=== PATIENT | male | born 1950 | race Caucasian/White ===

== ENCOUNTER → 2016-04-12 | Outpatient (CLI) | payer MEDICARE | END | disposition home or self-care (01) | LOC: LABWHC1 11:51 | PROVIDERS: ATTEND Internal Medicine Cardiovascular Disease | DX: I10 Essential (primary) hypertension (principal); E03.2 Hypothyroidism due to medicaments and other exogenous substances | CPT/HCPCS: 36415; 84443; 84450; 84460 ==

== ENCOUNTER → 2016-07-07 | Outpatient (CLI) | payer MEDICARE | END | disposition home or self-care (01) | LOC: LABWHC1 08:17 | PROVIDERS: ATTEND Internal Medicine Cardiovascular Disease | DX: I48.2 Chronic atrial fibrillation (principal) | CPT/HCPCS: 36415; 84443; 84450; 84460 ==

== ENCOUNTER → 2016-07-10 | Outpatient (CLI) | payer MEDICARE | END | disposition home or self-care (01) | LOC: LABWHC1 15:08 | PROVIDERS: ATTEND Internal Medicine Cardiovascular Disease | DX: I25.5 Ischemic cardiomyopathy (principal); I34.0 Nonrheumatic mitral (valve) insufficiency; I25.10 Atherosclerotic heart disease of native coronary artery without angina pectoris; I10 Essential (primary) hypertension | CPT/HCPCS: 36415; 84439; 84481 ==

== ENCOUNTER → 2016-12-07 | Outpatient (CLI) | payer MEDICARE ==
--- NOTE | 2016-12-07 12:32 | CT ---
EXAMINATION TYPE: CT brain wo con DATE OF EXAM: 12/07/2016 COMPARISON: NONE HISTORY: hallucinations/weakness CT DLP: 1090.40 mGycm Automated exposure control for dose reduction was used. FINDINGS: Changes of chronic sinusitis noted. Ventricular system is midline. No acute hemorrhage or mass effect . Mild generalized degenerative change. Calvarium intact. Intracranial atherosclerotic changes noted. IMPRESSION: 1. NO ACUTE PROCESS. CONSIDER MRI.
--- NOTE | 2016-12-07 13:53 | US ---
EXAMINATION TYPE: US carotid duplex BILAT DATE OF EXAM: 12/07/2016 COMPARISON: NONE CLINICAL HISTORY: R51 Headache, I25.10 Coronary Atherosclerosis. EXAM MEASUREMENTS: RIGHT: Peak Systolic Velocity (PSV) cm/sec ----- Right CCA: 80.9 ----- Right ICA: 100.1 ----- Right ECA: 78.7 ICA/CCA ratio: 1.2 RIGHT: End Diastole cm/sec ----- Right CCA: 22.1 ----- Right ICA: 32.2 ----- Right ECA: 11.2 LEFT: Peak Systolic Velocity (PSV) cm/sec ----- Left CCA: 89.9 ----- Left ICA: 98.0 ----- Left ECA: 77.1 ICA/CCA ratio: 1.1 LEFT: End Diastole cm/sec ----- Left CCA: 30.1 ----- Left ICA: 23.6 ----- Left ECA: 10.6 VERTEBRALS (direction of flow): Right Vertebral: Antegrade Left Vertebral: Antegrade Rhythm: Normal Mild atherosclerotic changes with no significant velocity increases seen bilaterally. Grayscale, color Doppler, spectral Doppler imaging carotid arteries. IMPRESSION: No hemodynamic significant stenosis of the proximal internal carotid arteries bilaterall y by Doppler criteria, an indirect measurement of carotid stenosis.
== END | disposition home or self-care (01) ==
LOC: RADCTMAIN 12:01
PROVIDERS: ATTEND Family Medicine
DX: I25.10 Atherosclerotic heart disease of native coronary artery without angina pectoris (principal); R51 Headache
CPT/HCPCS: 70450; 93880

== ENCOUNTER → 2016-12-18 | Outpatient (CLI) | payer MEDICARE ==
--- NOTE | 2016-12-19 07:05 | US ---
EXAMINATION TYPE: US thyroid st tissue head/neck DATE OF EXAM: 12/18/2016 COMPARISON: NONE CLINICAL HISTORY: R79.89 Elevated TSH levels. Abnormal labs GLAND SIZE: Right Lobe: 4.2 x 1.7 x 2.0 cm Overall Parenchyma: homogenous Left Lobe: 4.8 x 1.2 x 1.8 cm Overall Parenchyma: homogeneous Isthmus Thickness: 0.2 cm Bilateral neck scanned, no evidence of lymphadenopathy. Bilateral thyroid appeared wnl, right lobe alves d lobular contour IMPRESSION: Unremarkable-appearing thyroid with no evidence of heterogeneity, hypervascularity, or enlargement. N o discrete nodules.
== END ==
LOC: RADUSWWP 15:58
PROVIDERS: ATTEND Family Medicine
DX: R79.89 Other specified abnormal findings of blood chemistry (principal)
CPT/HCPCS: 76536

== ENCOUNTER 2019-12-05 20:41 | Inpatient (IN) | payer MEDICARE, OTHER ==
[2019-12-05] MEDS ORDERED: DILTIAZEM DRIP BOLUS FROM BAG 1 MG SOLN IV ONE (20:47)
[2019-12-05] MEDS ORDERED: SODIUM CHLORIDE 0.9% 500 ML 500 ML IV STA (21:00)
[2019-12-05] MEDS ORDERED: DILTIAZEM 125 MG in SODIUM CHLORIDE 0.9% 100 ML IV SCH (21:00)
--- NOTE | 2019-12-05 21:01 | ED ---
General Adult HPI - General Chief complaint: Recheck/Abnormal Lab/Rx Stated complaint: chest pain Time Seen by Provider: 12/05/19 20:43 Source: patient Mode of arrival: EMS - History of Present Illness Initial comments: Dictation was produced using [employer] dictation software. please excuse any grammatical, word or spelling errors. This patient was cared for during a federal and state declared state of emergency secondary to Covid 19 Chief Complaint: 69-year-old male presents with defibrillator firing. History of Present Illness: Patient is 69-year-old male who has past medical history of AICD, cardiac ablation, heart cath pacemaker. Patient states that he was driving home when all of a sudden he felt a intense shock to his chest. He believes that his defibrillator fired. Patient pulled over and EMS was called patient is brought to the emergency department. Patient states he felt fine all day. Feels at baseline. He does not know when he got shocked. He was driving at that time. He denies any palpitations prior to the onset of this shock. Patient was recently told that he has a leaky valve. The ROS documented in this emergency department record has been reviewed and confirmed by me. Those systems with pertinent positive or negative responses have been documented in the HPI. All other systems are other negative and/or noncontributory. PHYSICAL EXAM: General Impression: Alert and oriented x3, not in acute distress HEENT: Normocephalic atraumatic, extra-ocular movements intact, pupils equal and reactive to light bilaterally, mucous membranes moist. Cardiovascular: Tachycardic Chest: Able to complete full sentences, no retractions, no tachypnea Abdomen: abdomen soft, non-tender, non-distended, no organomegaly Musculoskeletal: Pulses present and equal in all extremities, no peripheral edema Motor: no focal deficits noted Neurological: CN II-XII grossly intact, no focal motor or sensory deficits noted Skin: Intact with no visualized rashes Psych: Normal affect and mood ED course: 69-year-old male past medical history of defibrillator firing. Vital signs upon arrival shows tachycardia of 140. Patient is asymptomatic. Repeat EKG was performed showing adequate rate control. EKG w slow her rate shows A. fib with aberrancy.. Patient denies any history of A. fib. Clinical presentation consistent with the onset A. fib. Patient be heparinized. Patient states he used to be prescribed a course however does not take it anymore because he can't afford it. Chest x-ray shows chronic changes. There is concern of a right basilar acute infiltrate. Laboratory evaluation obtained. Leukocytosis of 17.3. Coag panel shows INR 1.8. Metabolic panel shows some 132. Glucose 200. Troponin 0.035. Patient reevaluated after several minutes of Cardizem. Patient's heart rate is well-controlled. Patient is being asymp tomatic. Pending AICD interrogation. Discussed patient case with Dr. Murillo is willing to accept patients care. He requests that I contact cardiology who is agreeable with plan. Cardiology will be consulted. EKG interpretation: Ventricular rate 144, A. fib, RVR with aberrancy. No LA prolongation, no QTC prolongation, no ST or T-wave changes noted. EKG compared to 12/06/2015 showing no changes. - Related Data Home Medications Medication Instructions Recorded Confirmed Atorvastatin [Lipitor] 80 mg PO HS 11/27/13 12/05/19 Enalapril Maleate 2.5 mg PO HS 11/27/13 12/05/19 Aspirin EC [Ecotrin] 325 mg PO DAILY 12/05/19 12/05/19 Metoprolol Tartrate [Lopressor] 50 mg PO DAILY 12/05/19 12/05/19 Xarelto Unknown Dose 1 tab PO BID 12/05/19 12/05/19 Allergies Allergy/AdvReac Type Severity Reaction Status Date / Time No Known Allergies Allergy Verified 12/05/19 22:04 Review of Systems ROS Statement: Those systems with pertinent positive or pertinent negative responses have been documented in the HPI. ROS Other: All systems not noted in ROS Statement are negative. Past Medical History Past Medical History: GERD/Reflux, Hyperlipidemia, Hypertension, Myocardial Infarction ([place]) Additional Past Medical History / Comment(s): X3 NC'S, ULCER YEARS AGO, bradycardia Last Myocardial Infarction Date:: 2004 History of Any Multi-Drug Resistant Organisms: None Reported Past Surgical History: AICD, Cardiac Ablation, Heart Catheterization With Stent, Pacemaker Additional Past Surgical History / Comment(s): CARDIOVERSION, HEART STENTS X7, cardiac ablation x 2 in the past and again om 12-05-15, rt wrist surgery after injury Additional Past Anesthesia/Blood Transfusion Reaction / Comment(s): NEVER HAS HAD GENERAL ANESTHESIA Date of Last Stent Placement:: 2004 Type of Cardiac Device: AICD Device Placement Date:: Past Psychological History: No Psychological Hx Reported Smoking Status: Current every day smoker Past Alcohol Use History: Occasional Past Drug Use History: None Reported - Past Family History Father Additional Family Medical History / Comment(s): DAD HAD PACER BUT NO OTHER HX KNOWN Mother Family Medical History: No Reported History Additional Family Medical History / Comment(s): pt stated does'nt know medical hx on parents. Course Vital Signs 12/05/19 12/05/19 20:43 22:17 Temperature 97.6 F 97.8 F Pulse Rate 141 H 95 Respiratory 19 18 Rate Blood Pressure 134/100 130/83 O2 Sat by Pulse 96 92 L Oximetry Medical Decision Making - Lab Data Result diagrams: 12/05/19 21:07 12/05/19 21:07 Lab Results 12/05/19 12/05/19 12/05/19 Range/Units 21:07 21:07 21:07 WBC 17.3 H (3.8-10.6) k/uL RBC 5.71 (4.30-5.90) m/uL Hgb 17.1 (13.0-17.5) gm/dL Hct 52.3 (39.0-53.0) % MCV 91.5 (80.0-100.0) fL MCH 30.0 (25.0-35.0) pg MCHC 32.8 (31.0-37.0) g/dL RDW 13.4 (11.5-15.5) % Plt Count 265 (150-450) k/uL Neutrophils % 56 % Lymphocytes % 32 % Monocytes % 8 % Eosinophils % 1 % Basophils % 1 % Neutrophils # 9.7 H (1.3-7.7) k/uL Lymphocytes # 5.5 H (1.0-4.8) k/uL Monocytes # 1.4 H (0-1.0) k/uL Eosinophils # 0.2 (0-0.7) k/uL Basophils # 0.1 (0-0.2) k/uL Manual Slide Review Performed Large Platelets Present Polychromasia Present Anisocytosis (manual) Present PT 17.8 H (9.0-12.0) sec INR 1.8 H (<1.2) APTT 37.3 H (22.0-30.0) sec Sodium 132 L (137-145) mmol/L Potassium 3.9 (3.5-5.1) mmol/L Chloride 96 L (98-107) mmol/L Carbon Dioxide 22 (22-30) mmol/L Anion Gap 14 mmol/L BUN 11 (9-20) mg/dL Creatinine 1.17 (0.66-1.25) mg/dL Est GFR (CKD-EPI)AfAm 73 (>60 ml/min/1.73 sqM) Est GFR (CKD-EPI)NonAf 63 (>60 ml/min/1.73 sqM) Glucose 200 H (74-99) mg/dL Calcium 9.2 (8.4-10.2) mg/dL Magnesium 1.9 (1.6-2.3) mg/dL Total Bilirubin 1.0 (0.2-1.3) mg/dL AST 33 (17-59) U/L ALT 17 (4-49) U/L Alkaline Phosphatase 125 (38-126) U/L Troponin I (0.000-0.034) ng/mL Total Protein 7.4 (6.3-8.2) g/dL Albumin 4.4 (3.5-5.0) g/dL TSH 2.580 (0.465-4.680) mIU/L 12/05/19 Range/Units 21:07 WBC (3.8-10.6) k/uL RBC (4.30-5.90) m/uL Hgb (13.0-17.5) gm/dL Hct (39.0-53.0) % MCV (80.0-100.0) fL MCH (25.0-35.0) pg MCHC (31.0-37.0) g/dL RDW (11.5-15.5) % Plt Count (150-450) k/uL Neutrophils % % Lymphocytes % % Monocytes % % Eosinophils % % Basophils % % Neutrophils # (1.3-7.7) k/uL Lymphocytes # (1.0-4.8) k/uL Monocytes # (0-1.0) k/uL Eosinophils # (0-0.7) k/uL Basophils # (0-0.2) k/uL Manual Slide Review Large Platelets Polychromasia Anisocytosis (manual) PT (9.0-12.0) sec INR (<1.2) APTT (22.0-30.0) sec Sodium (137-145) mmol/L Potassium (3.5-5.1) mmol/L Chloride (98-107) mmol/L Carbon Dioxide (22-30) mmol/L Anion Gap mmol/L BUN (9-20) mg/dL Creatinine (0.66-1.25) mg/dL Est GFR (CKD-EPI)AfAm (>60 ml/min/1.73 sqM) Est GFR (CKD-EPI)NonAf (>60 ml/min/1.73 sqM) Glucose (74-99) mg/dL Calcium (8.4-10.2) mg/dL Magnesium (1.6-2.3) mg/dL Total Bilirubin (0.2-1.3) mg/dL AST (17-59) U/L ALT (4-49) U/L Alkaline Phosphatase (38-126) U/L Troponin I 0.035 H* (0.000-0.034) ng/mL Total Protein (6.3-8.2) g/dL Albumin (3.5-5.0) g/dL TSH (0.465-4.680) mIU/L Critical Care Time Critical Care Time: Yes Total Critical Care Time: 33 Disposition Clinical Impression: Afib Disposition: ADMITTED IP TO THIS [facility] Condition: Fair Referrals: Lenard Cheatham MD [Primary Care Provider] - 1-2 days Decision Time: 22:27
[2019-12-05 21:22] LABS: Basophils # (A) 0.1 k/uL (0-0.2); Basophils % (A) 1 %; Eosinophils # (A) 0.2 k/uL (0-0.7); Eosinophils % (A) 1 %; HCT 52.3 % (39.0-53.0); HGB 17.1 gm/dL (13.0-17.5); Lymphocytes # (A) 5.5 k/uL (1.0-4.8); Lymphocytes % (A) 32 %; MCHC 32.8 g/dL (31.0-37.0); MCV 91.5 fL (80.0-100.0); Mean Platelet Volume 9.3; Monocytes # (A) 1.4 k/uL (0-1.0); Monocytes % (A) 8 %; Neutrophils # (A) 9.7 k/uL (1.3-7.7); Neutrophils % (A) 56 %; Platelet Count 265 k/uL (150-450); RBC 5.71 m/uL (4.30-5.90); RDW 13.4 % (11.5-15.5); WBC 17.3 k/uL (3.8-10.6)
[2019-12-05 21:24] LABS: INR 1.8 (<1.2)
[2019-12-05 21:25] LABS: Partial Thromboplastin Time 37.3 sec (22.0-30.0); Prothrombin Time 17.8 sec (9.0-12.0)
[2019-12-05 21:34] LABS: Albumin 4.4 g/dL (3.5-5.0); Calcium 9.2 mg/dL (8.4-10.2); Magnesium 1.9 mg/dL (1.6-2.3); Potassium 3.9 mmol/L (3.5-5.1); Total Protein 7.4 g/dL (6.3-8.2)
[2019-12-05] MEDS ORDERED: HEPARIN SODIUM,PORCINE 5,000 UNIT/ML 1 ML VIAL IV PRN ×2 (21:35→22:23)
[2019-12-05] MEDS ORDERED: HEPARIN SODIUM,PORCINE 10,000 UNIT/ML 1 ML VIAL IV ONE (21:35)
--- NOTE | 2019-12-05 21:41 | XR ---
EXAMINATION TYPE: XR chest 1V portable DATE OF EXAM: 12/05/2019 COMPARISON: Chest x-ray February 20, 2015. HISTORY: Dysrhythmia with pacemaker fired. TECHNIQUE: Single AP portable frontal upright view of the chest is obtained. FINDINGS: Cardiac silhouette size stable and upper limits of normal with single lead upper left ches t pacemaker/defibrillator redemonstrated. There is new inferior lateral single lead pacemaker/defibri llator overlying the descending thoracic aorta frontal view. There is background chronic parenchymal change with diminished inspiration and increased central vascular congestion, slightly more prominent right focal basilar opacity noted. No pleural effusion or pneumothorax is clearly seen. The osseous structures are intact. Defibrillator pad overlies right upper to mid chest laterally. IMPRESSION: Chronic changes. Diminished inspiration with new central vascular congestion. Possible d eveloping right basilar acute infiltrate and/or atelectasis. Consider follow-up two-view chest x-ray.
[2019-12-05] MEDS ORDERED: HEPARIN SOD,PORK IN 0.45% NACL 25,000 UNIT in 0.45% NACL 1 250ML.BAG IV SCH ×2 (21:45→22:30)
[2019-12-05 22:01] LABS: Large Platelets Present; Polychromasia Present
[2019-12-05 22:03] LABS: Anisocytosis (M) Present
[2019-12-05] MEDS ORDERED: cefTRIAXone IN SWFI 1,000 MG/10 ML SYRINGE IVP STA (22:25)
[2019-12-05] MEDS ORDERED: AZITHROMYCIN 500 MG in SODIUM CHLORIDE 0.9% 250 ML IVPB STA (22:25)
[2019-12-05] MEDS ORDERED: NALOXONE 0.4 MG/ML 1 ML VIAL IV PRN (22:27)
[2019-12-05] MEDS: SODIUM CHLORIDE 0.9% 1,000 ML IV SCH (23:03)
[2019-12-06] MEDS ORDERED: AMIODARONE 360 MG in DEXTROSE 5% IN WATER 200 ML IV ONE ×2 (01:30)
[2019-12-06] MEDS ORDERED: FUROSEMIDE 10 MG/ML 4 ML VIAL IV STA ×2 (03:42→04:29)
[2019-12-06] MEDS ORDERED: ONDANSETRON 4 MG/2 ML VIAL ONE (03:46)
--- NOTE | 2019-12-06 04:05 | XR ---
EXAMINATION TYPE: XR chest 1V portable DATE OF EXAM: 12/06/2019 COMPARISON: 12/05/2019 HISTORY: Short of breath TECHNIQUE: FINDINGS: There is some airspace infiltrate and consolidation in the right lower lobe. There is pleur al thickening and fluid at the right lung base and right lateral chest wall. There is diffuse pulmona ry interstitial edema. There is a left axillary pacemaker. There are no hilar masses. IMPRESSION: Pulmonary interstitial edema with right-sided pleural fluid and right lower lobe infiltra te. This is consistent with congestive heart failure that is increased compared to yesterday. Right l ower lobe pneumonia is possible.
[2019-12-06] MEDS: AMIODARONE 300 MG in DEXTROSE 5% IN WATER 250 ML IV SCH ×4 (06:30→15:47)
[2019-12-06 07:47] LABS: HCT 53.2 % (39.0-53.0); HGB 17.1 gm/dL (13.0-17.5); MCH 29.6 pg (25.0-35.0); MCHC 32.2 g/dL (31.0-37.0); MCV 91.8 fL (80.0-100.0); Mean Platelet Volume 11.1; Platelet Count 256 k/uL (150-450); RDW 13.1 % (11.5-15.5); WBC 14.6 k/uL (3.8-10.6)
[2019-12-06 08:53] LABS: Albumin 4.2 g/dL (3.5-5.0); Calcium 9.2 mg/dL (8.4-10.2); Potassium 4.2 mmol/L (3.5-5.1); Total Bilirubin 0.8 mg/dL (0.2-1.3); Total Protein 7.3 g/dL (6.3-8.2)
--- NOTE | 2019-12-06 11:19 | P.CRDCN ---
History of Present Illness Consult date: 12/06/19 History of present illness: CHIEF COMPLAINT: ICD firing HISTORY OF PRESENT ILLNESS: This is a 69-year old male with a past medical history significant for ischemic cardiomyopathy, cardiac ablation, ICD, hyperlipidemia, coronary artery disease with multiple stent placements, and nicotine dependence. Patient follows in the office with Dr. Curry. We have been asked to see the patient in consultation for new onset atrial fibrillation. Patient states he was driving yesterday and was feeling in his normal state of health when he suddenly saw a flash of light and then he felt a shock to his chest. He states about a minute later he felt a second shock. The patient denies feeling any chest pain, shortness of breath, dizziness or lightheadedness, or palpitations prior to this. Patient was admitted to the hospital for further evaluation. Patient was transferred to the intensive care unit secondary to respiratory distress and pulmonary edema. Patient required high flow nasal cannula and IV Lasix. DIAGNOSTICS: EKG reveals atrial fibrillation with RVR. Chest xray pulmonary interstitial edema with right-sided pleural fluid and right lower lobe infiltrate. Consistent with congestive heart failure that is increased compared to yesterday. Right lower lobe pneumonia is possible. Laboratory data: WBC 14.6. Hemoglobin 17.1. Platelet count 256. Sodium 136 for a potassium 4.2. BUN 13. Creatinine 1.05. Lactic acid 2.6. Repeat 1.4. Troponin 0.035. 0.047. BNP 4250. TSH 2.580 Current home cardiac medications include Lopressor 50 mg daily, enalapril 2.5 mg daily, Lipitor 80 mg daily, aspirin 325 mg daily. REVIEW OF SYSTEMS: At the time of my exam: CONSTITUTIONAL: Denies fever or chills. HEENT: Denies blurred vision, vision changes, or eye pain. Denies hemoptysis CARDIOVASCULAR: Denies chest pain, orthopnea, PND or palpitations RESPIRATORY: Reports shortness of breath. GASTROINTESTINAL: Denies abdominal pain. Denies nausea or vomiting. HEMATOLOGIC: Denies bleeding disorders. GENITOURINARY: Denies any blood in urine. SKIN: Denies pruitis. Denies rash. PHYSICAL EXAM: VITAL SIGNS: Reviewed. GENERAL: Well-developed in no acute distress. HEENT: Head is normocephalic. Pupils are equal, round. Sclerae anicteric. Mucous membranes of the mouth are moist. Neck supple. No JVD or thyromegaly LUNGS: Respirations even and unlabored. Lungs diminished with rales to bilateral bases. HEART: Irregular rate and rhythm. S1 and S2 heard. ABDOMEN: Soft. Nondistended. Nontender. EXTREMITIES: Normal range of motion. No clubbing or cyanosis. Peripheral pulses intact. No lower extremity edema NEUROLOGIC: Awake and alert. Oriented x 3. ASSESSMENT: Ventricular tachycardia, status post ICD discharge 2 Pulmonary edema Elevated troponins, likely secondary to VT New onset atrial fibrillation with RVR History of ischemic cardiomyopathy, status post ICD placement History of coronary artery disease with previous stent placement History of cardiac ablation Hyperlipidemia Nicotine dependence, patient smokes half a pack per day PLAN: Continue IV amiodarone per protocol. Will begin oral amiodarone 400 mg by mouth twice a day after infusion is complete Continue beta nyla. Continue telemetry monitoring Continue IV Lasix 40 mg every 12 hours Monitor kidney function Daily weights and accurate I&O Obtain 2-D echo to assess cardiac structure and function Continue IV heparin. Patient will require oral anticoagulation. He reports he was prescribed anticoagulation in the past after an ablation and was unable to afford it. Will consult case management to determine co-pay of anticoagulation options. Further recommendations pending patient's course Nurse practitioner note has been reviewed by physician. Signing provider agrees with the documented findings, assessment, and plan of care. Past Medical History Past Medical History: Hyperlipidemia, Myocardial Infarction ([place]) Additional Past Medical History / Comment(s): X3 ME'S, ULCER YEARS AGO, bradycardia Last Myocardial Infarction Date:: 2004 History of Any Multi-Drug Resistant Organisms: None Reported Past Surgical History: AICD, Cardiac Ablation, Heart Catheterization With Stent, Orthopedic Surgery, Pacemaker Additional Past Surgical History / Comment(s): CARDIOVERSION, HEART STENTS X7, cardiac ablation x 2 in the past and again om 12-05-15, rt wrist surgery after injury Past Anesthesia/Blood Transfusion Reactions: Unable to Obtain Additional Past Anesthesia/Blood Transfusion Reaction / Comment(s): NEVER HAS HAD GENERAL ANESTHESIA Date of Last Stent Placement:: 2004 Type of Cardiac Device: AICD Device Placement Date:: Past Psychological History: No Psychological Hx Reported Additional Psychological History / Comment(s): occ deprssion but denies any suicidal ideations and no hoplessness Smoking Status: Current every day smoker Past Alcohol Use History: Occasional Additional Past Alcohol Use History / Comment(s): STARTED SMOKING AT AGE 10, smokes half a pack a day Past Drug Use History: None Reported - Past Family History Father Additional Family Medical History / Comment(s): DAD HAD PACER BUT NO OTHER HX KNOWN Mother Family Medical History: No Reported History Additional Family Medical History / Comment(s): pt stated does'nt know medical hx on parents. Medications and Allergies Home Medications Medication Instructions Recorded Confirmed Type Atorvastatin [Lipitor] 80 mg PO HS 11/27/13 12/05/19 History Enalapril Maleate 2.5 mg PO HS 11/27/13 12/05/19 History Aspirin EC [Ecotrin] 325 mg PO DAILY 12/05/19 12/05/19 History Metoprolol Tartrate [Lopressor] 50 mg PO DAILY 12/05/19 12/05/19 History Xarelto Unknown Dose 1 tab PO BID 12/05/19 12/05/19 History Allergies Allergy/AdvReac Type Severity Reaction Status Date / Time No Known Allergies Allergy Verified 12/05/19 22:04 Physical Exam Vitals: Vital Signs Temp Pulse Pulse Resp BP BP Pulse Ox 12/06/19 08:30 108 H 37 H 114/85 94 L 12/06/19 08:00 97.6 F 107 H 23 117/86 96 12/06/19 07:30 22 117/86 96 12/06/19 07:00 97 0 L 125/84 96 12/06/19 06:30 98 21 125/84 95 12/06/19 06:00 98 12 129/101 96 12/06/19 05:30 92 16 129/101 96 12/06/19 05:00 102 H 49 H 120/96 95 12/06/19 04:50 96 21 120/96 96 12/06/19 04:40 110 H 31 H 120/96 96 12/06/19 04:30 118 H 46 H 146/109 97 12/06/19 04:20 108 H 35 H 146/109 97 12/06/19 04:10 125 H 31 H 87 L 12/06/19 00:40 97.7 F 98 20 140/88 91 L 12/06/19 00:00 97.4 F L 109 H 18 151/73 92 L 12/05/19 23:44 97.4 F L 109 H 18 151/73 92 L 12/05/19 23:10 98.2 F 93 19 114/90 94 L 12/05/19 22:17 97.8 F 95 18 130/83 92 L 12/05/19 20:43 97.6 F 141 H 19 134/100 96 Intake and Output 12/05/19 12/06/19 12/06/19 22:59 06:59 14:59 Intake Total 290 200.366 Output Total 470 375 Balance -180 -174.634 Intake: IV 40 20 Sodium Chloride 0.9% 1, 40 20 000 ml @ 20 mls/hr IV . Q24H [facility] Rx#:[id number] Intake, IV Titration 250 180.366 Amount Amiodarone 300 mg In 50 Dextrose 5% in Water 250 ml @ 0.5 MG/MIN 25 mls/hr IV .Q10H [facility] Rx#: [id number] Azithromycin 500 mg In 250 Sodium Chloride 0.9% 250 ml @ 250 mls/hr IVPB ONCE [facility] Rx#:[id number] Heparin Sod,Pork in 0.45% 130.366 NaCl 25,000 unit In 0.45 % NaCl 1 250ml.bag @ 18 UNITS/KG/HR 14.043 mls/hr IV .[id number] [facility] Rx#: [id number] Oral 0 Output: Urine 470 375 Other: Voiding Method Indwelling Catheter Indwelling Catheter Weight 78.018 kg 80.4 kg Results 12/06/19 05:22 12/06/19 05:22 Cardiac Enzymes 12/05/19 12/05/19 12/06/19 Range/Units 21:07 21:07 05:22 AST 33 32 (17-59) U/L Troponin I 0.035 H* (0.000-0.034) ng/mL 12/06/19 Range/Units 05:22 AST (17-59) U/L Troponin I 0.047 H* (0.000-0.034) ng/mL Coagulation 12/05/19 12/06/19 Range/Units 21:07 05:22 PT 17.8 H (9.0-12.0) sec APTT 37.3 H >200.0 H* (22.0-30.0) sec CBC 12/05/19 12/06/19 Range/Units 21:07 05:22 WBC 17.3 H 14.6 H (3.8-10.6) k/uL RBC 5.71 5.80 (4.30-5.90) m/uL Hgb 17.1 17.1 (13.0-17.5) gm/dL Hct 52.3 53.2 H (39.0-53.0) % Plt Count 265 256 (150-450) k/uL Comprehensive Metabolic Panel 12/05/19 12/06/19 Range/Units 21:07 05:22 Sodium 132 L 136 L (137-145) mmol/L Potassium 3.9 4.2 (3.5-5.1) mmol/L Chloride 96 L 100 (98-107) mmol/L Carbon Dioxide 22 20 L (22-30) mmol/L BUN 11 13 (9-20) mg/dL Creatinine 1.17 1.05 (0.66-1.25) mg/dL Glucose 200 H 212 H (74-99) mg/dL Calcium 9.2 9.2 (8.4-10.2) mg/dL AST 33 32 (17-59) U/L ALT 17 16 (4-49) U/L Alkaline Phosphatase 125 135 H (38-126) U/L Total Protein 7.4 7.3 (6.3-8.2) g/dL Albumin 4.4 4.2 (3.5-5.0) g/dL Current Medications Generic Name Dose Route Start Last Admin Trade Name Freq PRN Reason Stop Dose Admin Amiodarone HCl 400 mg 12/07/19 09:00 Amiodarone 200 Mg Tab PO BID [facility] Aspirin 325 mg 12/06/19 09:30 Aspirin 325 Mg Tab PO DAILY [facility] Atorvastatin Calcium 80 mg 12/06/19 21:00 Atorvastatin 80 Mg Tab PO HS [facility] Furosemide 40 mg 12/06/19 21:00 Furosemide 10 Mg/Ml 4 Ml Vial IV Q12HR [facility] Heparin Sodium (Porcine) 0 unit 12/05/19 22:23 12/05/19 23:02 Heparin Sodium,Porcine 5,000 Unit/Ml 1 Ml Vial IV 6,241.44 unit PER PROTOCOL PRN Administration Low PTT Protocol Heparin Sodium/Sodium Chloride 250 mls @ 14.043 mls/hr 12/05/19 22:30 12/06/19 08:23 25,000 unit/ Sodium Chloride IV 15 units/kg/hr .[id number] [facility] 11.703 mls/hr Titration Protocol 18 UNITS/KG/HR Sodium Chloride 1,000 mls @ 20 mls/hr 12/05/19 22:30 12/05/19 23:03 Saline 0.9% IV 20 mls/hr .Q24H [facility] Administration Amiodarone HCl 300 mg/ 250 mls @ 25 mls/hr 12/06/19 06:30 12/06/19 06:30 Dextrose/Water IV 12/07/19 00:29 0.5 mg/min .Q10H [facility] 25 mls/hr Administration Protocol 0.5 MG/MIN Metoprolol Tartrate 50 mg 12/06/19 09:30 Metoprolol Tartrate 50 Mg Tab PO DAILY [facility] Naloxone HCl 0.2 mg 12/05/19 22:27 Naloxone 0.4 Mg/Ml 1 Ml Vial IV Q2M PRN Opioid Reversal Intake and Output 12/05/19 12/06/19 12/06/19 22:59 06:59 14:59 Intake Total 290 200.366 Output Total 470 375 Balance -180 -174.634 Intake: IV 40 20 Sodium Chloride 0.9% 1, 40 20 000 ml @ 20 mls/hr IV . Q24H [facility] Rx#:[id number] Intake, IV Titration 250 180.366 Amount Amiodarone 300 mg In 50 Dextrose 5% in Water 250 ml @ 0.5 MG/MIN 25 mls/hr IV .Q10H [facility] Rx#: [id number] Azithromycin 500 mg In 250 Sodium Chloride 0.9% 250 ml @ 250 mls/hr IVPB ONCE [facility] Rx#:[id number] Heparin Sod,Pork in 0.45% 130.366 NaCl 25,000 unit In 0.45 % NaCl 1 250ml.bag @ 18 UNITS/KG/HR 14.043 mls/hr IV .[id number] [facility] Rx#: [id number] Oral 0 Output: Urine 470 375 Other: Voiding Method Indwelling Catheter Indwelling Catheter Weight 78.018 kg 80.4 kg 12/06/19 05:22 12/06/19 05:22
--- NOTE | 2019-12-06 12:27 | P.CNPUL ---
History of Present Illness Consult date: 12/06/19 Reason for consult: dyspnea History of present illness: This 69-year-old male patient has CAD with multivessel disease and multiple stents placed in the past, in addition to history of ischemic cardiomyopathy and the patient has an AICD in place. The patient has had previous VT ablation. He has also approximately atrial fibrillation. The patient was driving yesterday when he had his ileostomy discharge and this happened twice and the second one a few minutes later after the first shock. The patient denies having any chest pain. He was having progressive increased shortness of breath over the past 2 weeks. He was brought into the hospital. He was started on amiodarone drip and his current rhythm is A. fib. His chest x-ray showed pulmonary edema and there was increased infiltration of the right lung base more than the left. There was no evidence of any lung masses or tumors. There may be some small bilateral pleural effusions. The patient denies having any cough or sputum production. No hemoptysis. No pleurisy. White cell count of 14.6. Creatinine is at 1.05. The lactic acid level at 2.6. ProBNP level is 4250. The pro calcitonin level is still pending for now. The patient was given a dose of Rocephin and Zith romax in the ED. The patient has no focal neurological deficits. The patient has no chest pain. He has not required any pressors. Review of Systems Constitutional: Denies chills, Denies fever Eyes: denies as per HPI, denies blurred vision, denies bulging eye, denies decreased vision, denies diplopia, denies discharge, denies dry eye, denies irritation, denies itching, denies pain, denies photophobia, denies loss of peripheral vision, denies loss of vision, denies tunnel vision/blind spots Ears: deny: decreased hearing, ear discharge, earache, tinnitus Ears, nose, mouth and throat: Reports as per HPI Cardiovascular: Reports decreased exercise tolerance, Reports dyspnea on exertion, Reports irregular heart beat, Reports orthopnea Respiratory: Reports dyspnea Gastrointestinal: Reports as per HPI Genitourinary: Reports as per HPI Musculoskeletal: Reports as per HPI Musculoskeletal: absent: ankle pain, ankle stiffness, ankle swelling Integumentary: Reports as per HPI Neurological: Reports as per HPI Psychiatric: Reports as per HPI Endocrine: Reports as per HPI Hematologic/Lymphatic: Reports as per HPI Allergic/Immunologic: Reports as per HPI Past Medical History Past Medical History: Coronary Artery Disease (CAD), Hyperlipidemia, Myocardial Infarction (OR) Additional Past Medical History / Comment(s): Coronary artery disease, multiple MIs in the past, multiple coronary stenting, history of peptic ulcer disease, ischemic cardiomyopathy, previous history of VT ablation, previous history of acid replacement, chronic atrial fibrillation, hyperlipidemia Last Myocardial Infarction Date:: 2004 History of Any Multi-Drug Resistant Organisms: None Reported Past Surgical History: AICD, Cardiac Ablation, Heart Catheterization With Stent, Orthopedic Surgery, Pacemaker Additional Past Surgical History / Comment(s): CARDIOVERSION, HEART STENTS X7, cardiac ablation x 2 in the past and again om 12-05-15, rt wrist surgery after injury Past Anesthesia/Blood Transfusion Reactions: Unable to Obtain Additional Past Anesthesia/Blood Transfusion Reaction / Comment(s): NEVER HAS HAD GENERAL ANESTHESIA Date of Last Stent Placement:: 2004 Type of Cardiac Device: AICD Device Placement Date:: Past Psychological History: No Psychological Hx Reported Additional Psychological History / Comment(s): occ deprssion but denies any danny cidal ideations and no hoplessness Smoking Status: Current every day smoker Past Alcohol Use History: Occasional Additional Past Alcohol Use History / Comment(s): STARTED SMOKING AT AGE 10, smokes half a pack a day Past Drug Use History: None Reported - Past Family History Father Additional Family Medical History / Comment(s): DAD HAD PACER BUT NO OTHER HX KNOWN Mother Family Medical History: No Reported History Additional Family Medical History / Comment(s): pt stated does'nt know medical hx on parents. Medications and Allergies Home Medications Medication Instructions Recorded Confirmed Type Atorvastatin [Lipitor] 80 mg PO HS 11/27/13 12/05/19 History Enalapril Maleate 2.5 mg PO HS 11/27/13 12/05/19 History Aspirin EC [Ecotrin] 325 mg PO DAILY 12/05/19 12/05/19 History Metoprolol Tartrate [Lopressor] 50 mg PO DAILY 12/05/19 12/05/19 History Xarelto Unknown Dose 1 tab PO BID 12/05/19 12/05/19 History Allergies Allergy/AdvReac Type Severity Reaction Status Date / Time No Known Allergies Allergy Verified 12/05/19 22:04 Physical Exam Vitals: Vital Signs Temp Pulse Pulse Resp BP BP Pulse Ox 12/06/19 08:30 108 H 37 H 114/85 94 L 12/06/19 08:00 97.6 F 107 H 23 117/86 96 12/06/19 07:30 22 117/86 96 12/06/19 07:00 97 0 L 125/84 96 12/06/19 06:30 98 21 125/84 95 12/06/19 06:00 98 12 129/101 96 12/06/19 05:30 92 16 129/101 96 12/06/19 05:00 102 H 49 H 120/96 95 12/06/19 04:50 96 21 120/96 96 12/06/19 04:40 110 H 31 H 120/96 96 12/06/19 04:30 118 H 46 H 146/109 97 12/06/19 04:20 108 H 35 H 146/109 97 12/06/19 04:10 125 H 31 H 87 L 12/06/19 00:40 97.7 F 98 20 140/88 91 L 12/06/19 00:00 97.4 F L 109 H 18 151/73 92 L 12/05/19 23:44 97.4 F L 109 H 18 151/73 92 L 12/05/19 23:10 98.2 F 93 19 114/90 94 L 12/05/19 22:17 97.8 F 95 18 130/83 92 L 12/05/19 20:43 97.6 F 141 H 19 134/100 96 Intake and Output 12/05/19 12/06/19 12/06/19 22:59 06:59 14:59 Intake Total 290 200.366 Output Total 470 375 Balance -180 -174.634 Intake: IV 40 20 Sodium Chloride 0.9% 1, 40 20 000 ml @ 20 mls/hr IV . Q24H [facility] Rx#:[id number] Intake, IV Titration 250 180.366 Amount Amiodarone 300 mg In 50 Dextrose 5% in Water 250 ml @ 0.5 MG/MIN 25 mls/hr IV .Q10H [facility] Rx#: [id number] Azithromycin 500 mg In 250 Sodium Chloride 0.9% 250 ml @ 250 mls/hr IVPB ONCE [facility] Rx#:[id number] Heparin Sod,Pork in 0.45% 130.366 NaCl 25,000 unit In 0.45 % NaCl 1 250ml.bag @ 18 UNITS/KG/HR 14.043 mls/hr IV .[id number] [facility] Rx#: [id number] Oral 0 Output: Urine 470 375 Other: Voiding Method Indwelling Catheter Indwelling Catheter Weight 78.018 kg 80.4 kg Gen. appearance the patient is calm and comfortable. He is not having any acute respiratory distress Head exam was generally normal. There was no scleral icterus or corneal arcus. Mucous membranes were moist. Neck was supple and without jugular venous distension, thyromegaly, or carotid bruits. Carotids were easily palpable bilaterally. There was no adenopathy. Lungs sounds are diminished and the patient is crackles in lung bases bilaterally. Heart sounds are irregular, positive S1-S2 and there is no significant murmurs appreciated. The patient has a AICD pocket of the left anterior chest area. Abdominal exam revealed normal bowel sounds. The abdomen was soft, non-tender, and without masses, organomegaly, or appreciable enlargement of the abdominal aorta. Examination of the extremities revealed easily palpable radial, femoral and pedal pulses. There was no cyanosis, clubbing or edema. Examination of the skin revealed no evidence of significant rashes, suspicious appearing nevi or other concerning lesions. Neurologically, the patient is awake and alert and the patient does not have any focal neurological deficit. Cranial nerves are essentially intact. Results - Laboratory Findings CBC and BMP: 12/06/19 05:22 12/06/19 05:22 PT/INR, D-dimer PT 17.8 sec (9.0-12.0) H 12/05/19 21:07 INR 1.8 (<1.2) H 12/05/19 21:07 Abnormal lab findings: Abnormal Labs 12/05/19 12/05/19 12/05/19 21:07 21:07 21:07 WBC 17.3 H Hct Neutrophils # 9.7 H Lymphocytes # 5.5 H Monocytes # 1.4 H PT 17.8 H INR 1.8 H APTT 37.3 H Sodium 132 L Chloride 96 L Carbon Dioxide Glucose 200 H Plasma Lactic Acid Geoff Alkaline Phosphatase Troponin I 12/05/19 12/05/19 12/06/19 21:07 23:00 05:22 WBC Hct Neutrophils # Lymphocytes # Monocytes # PT INR APTT >200.0 H* Sodium Chloride Carbon Dioxide Glucose Plasma Lactic Acid Geoff 2.6 H* Alkaline Phosphatase Troponin I 0.035 H* 12/06/19 12/06/19 12/06/19 05:22 05:22 05:22 WBC 14.6 H Hct 53.2 H Neutrophils # Lymphocytes # Monocytes # PT INR APTT Sodium 136 L Chloride Carbon Dioxide 20 L Glucose 212 H Plasma Lactic Acid Geoff Alkaline Phosphatase 135 H Troponin I 0.047 H* - Diagnostic Findings Chest x-ray: image reviewed Assessment and Plan Plan: 1 acute discharge of AICD 2, rule out underlying ventricular arrhythmia either V. tach or V. fib. The the fibrillated needs to be interrogated 2 ischemic cardiomyopathy with AICD placement 3 atrial fibrillation with RVR and a left bundle branch block pattern current rate is under better control 4 acute pulmonary edema, asymmetric with some increased cough was the right lower lobe, consider underlying pneumonia in the right lower lobe although the presentation is most typical of CHF 5 multivessel coronary artery disease with previous OR and previous coronary stenting 6 history of a new tachycardia post-ablation 7 hyperlipidemia 8 history of smoking 9 mild lactic acidosis Plan Continue the amiodarone drip Restart metoprolol 50 mg by mouth daily Diet he is a patient with a 40 mg IV push every 12 hours Restart aspirin 325 mg by mouth daily IV fluids to KVO Interrogated the AICD Cardiology consultation Repeat chest x-ray with next 24 hours Consider long-term anticoagulation versus acutely placing the patient heparin We'll continue to follow
[2019-12-06] MEDS: ASPIRIN 325 MG TAB PO SCH (15:11)
[2019-12-06] MEDS: METOPROLOL TARTRATE 50 MG TAB PO SCH (15:11)
--- NOTE | 2019-12-06 17:11 | P.HPIM ---
History of Present Illness H&P Date: 12/06/19 Chief Complaint: AICD firing History of presenting complaint: This is a pleasant 69-year-old patient of Dr. Cheatham. Chronic stable medical conditions include coronary artery disease, hyperlipidemia, multiple MIs in the past, coronary stent, peptic ulcer disease, ischemic cardiomyopathy, previous V. tach ablation, atrial fibrillation,. Patient was driving home yesterday when he saw lights flashing and then his AICD kicked in twice. Presented to the ER. Admitted to the floor. Patient became short of breath. Had to be given Lasix and put on a BiPAP. Then transferred to the ICU. AICD interrogation did show V. tach. Patient put on IV amiodarone. This morning patient is feeling better. Daughter the bedside. Patient had been on eliquis previously. Because the co- pay was very high patient stopped taking it. Just last week he was started on Xarelto Review of systems: GEN.: Tired EYES: None HEENT: None NECK: None RESPIRATORY: Some shortness of breath CARDIOVASCULAR: As above GASTROINTESTINAL: None GENITOURINARY: None MUSCULOSKELETAL: None LYMPHATICS: None HEMATOLOGICAL: None PSYCHIATRY: None NEUROLOGICAL: None Past medical history to include: Coronary artery disease with stent, multiple MIs, hyperlipidemia, peptic ulcer disease, ischemic myopathy, went into tachycardia ablation, AICD placement, chronic atrial fibrillation, Social history: Lives alone. Smoking a pack a day closed to 59 years, takes about 6 pack a week. 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 EYES: Pupils equal. Conjunctiva normal. HEENT: External appearance of nose and ears normal, oral cavity grossly normal. NECK: JVD not raised; masses not palpable. HEART: First and second heart sounds are normal; no edema. LUNGS: Respiratory rate increased, decreased breath sounds. ABDOMEN: Soft, nontender, liver spleen not palpable, no masses palpable. PSYCH: Alert and oriented x3; mood and affect normal. NEUROLOGICAL: Cranial nerves grossly intact; no facial asymmetry, power and sensation grossly intact. LYMPHATICS: No lymph nodes palpable in the axilla and neck INVESTIGATIONS, reviewed in the clinical context: White count 7.3 hemoglobin 17.1 INR 1.8 potassium 3.9 creatinine 1.17 Lactic acid 2. 6 repeat 2.4 Troponin I 0.035, 0.047 EKG tracing personally reviewed by [id number] tachycardia Chest x-ray film personally reviewed by me-pulmonary edema Assessment: -AICD firing 2 -Acute pulmonary edema secondary to underlying endocrine tachycardia, causing acute hypoxic respiratory failure requiring BiPAP for some time -Coronary artery disease with prior history of stents -Hyperlipidemia -Persistent atrial fibrillation -Chronic nicotine dependence patient active cigarette smoker -Ischemic cardiomyopathy Plan: Patient was on BiPAP that was taken off. Patient started IV amiodarone. Continue with Zestril Lopressor). Also IV Lasix. Follow with cardiology. He did 2-D echocardiogram. There was discussed with the patient and daughter the bedside. Smoke cessation counseling: This was done with the patient. Nicotine patch is being given. More than 3 minutes was spent for this Past Medical History Past Medical History: Hyperlipidemia, Myocardial Infarction (MS) Additional Past Medical History / Comment(s): X3 MS'S, ULCER YEARS AGO, bradycardia Last Myocardial Infarction Date:: 2004 History of Any Multi-Drug Resistant Organisms: None Reported Past Surgical History: AICD, Cardiac Ablation, Heart Catheterization With Stent, Orthopedic Surgery, Pacemaker Additional Past Surgical History / Comment(s): CARDIOVERSION, HEART STENTS X7, cardiac ablation x 2 in the past and again om 12-05-15, rt wrist surgery after injury Past Anesthesia/Blood Transfusion Reactions: Unable to Obtain Additional Past Anesthesia/Blood Transfusion Reaction / Comment(s): NEVER HAS HAD GENERAL ANESTHESIA Date of Last Stent Placement:: 2004 Type of Cardiac Device: AICD Device Placement Date:: Past Psychological History: No Psychological Hx Reported Additional Psychological History / Comment(s): occ deprssion but denies any suicidal ideations and no hoplessness Smoking Status: Current every day smoker Past Alcohol Use History: Occasional Additional Past Alcohol Use History / Comment(s): STARTED SMOKING AT AGE 10, smokes half a pack a day Past Drug Use History: None Reported - Past Family History Father Additional Family Medical History / Comment(s): DAD HAD PACER BUT NO OTHER HX KNOWN Mother Family Medical History: No Reported History Additional Family Medical History / Comment(s): pt stated does'nt know medical hx on parents. Medications and Allergies Home Medications Medication Instructions Recorded Confirmed Type Atorvastatin [Lipitor] 80 mg PO HS 09/12/14 09/19/20 History Enalapril Maleate 2.5 mg PO HS 11/27/13 12/05/19 History Aspirin EC [Ecotrin] 325 mg PO DAILY 12/05/19 12/05/19 History Metoprolol Tartrate [Lopressor] 50 mg PO DAILY 12/05/19 12/05/19 History Xarelto Unknown Dose 1 tab PO BID 12/05/19 12/05/19 History Allergies Allergy/AdvReac Type Severity Reaction Status Date / Time No Known Allergies Allergy Verified 12/05/19 22:04 Physical Exam Vitals: Vital Signs Temp Pulse Pulse Resp BP BP Pulse Ox 12/06/19 08:30 108 H 37 H 114/85 94 L 12/06/19 08:00 97.6 F 107 H 23 117/86 96 12/06/19 07:30 22 117/86 96 12/06/19 07:00 97 0 L 125/84 96 12/06/19 06:30 98 21 125/84 95 12/06/19 06:00 98 12 129/101 96 12/06/19 05:30 92 16 129/101 96 12/06/19 05:00 102 H 49 H 120/96 95 12/06/19 04:50 96 21 120/96 96 12/06/19 04:40 110 H 31 H 120/96 96 12/06/19 04:30 118 H 46 H 146/109 97 12/06/19 04:20 108 H 35 H 146/109 97 12/06/19 04:10 125 H 31 H 87 L 12/06/19 00:40 97.7 F 98 20 140/88 91 L 12/06/19 00:00 97.4 F L 109 H 18 151/73 92 L 12/05/19 23:44 97.4 F L 109 H 18 151/73 92 L 12/05/19 23:10 98.2 F 93 19 114/90 94 L 12/05/19 22:17 97.8 F 95 18 130/83 92 L 12/05/19 20:43 97.6 F 141 H 19 134/100 96 Intake and Output 12/05/19 12/06/19 12/06/19 22:59 06:59 14:59 Intake Total 290 200.366 Output Total 470 375 Balance -180 -174.634 Intake: IV 40 20 Sodium Chloride 0.9% 1, 40 20 000 ml @ 20 mls/hr IV . Q24H [facility] Rx#:[id number] Intake, IV Titration 250 180.366 Amount Amiodarone 300 mg In 50 Dextrose 5% in Water 250 ml @ 0.5 MG/MIN 25 mls/hr IV .Q10H [facility] Rx#: [id number] Azithromycin 500 mg In 250 Sodium Chloride 0.9% 250 ml @ 250 mls/hr IVPB ONCE STA Rx#:[id number] Heparin Sod,Pork in 0.45% 130.366 NaCl 25,000 unit In 0.45 % NaCl 1 250ml.bag @ 18 UNITS/KG/HR 14.043 mls/hr IV .[id number] [facility] Rx#: [id number] Oral 0 Output: Urine 470 375 Other: Voiding Method Indwelling Catheter Indwelling Catheter Weight 78.018 kg 80.4 kg Results CBC & Chem 7: 12/06/19 05:22 12/06/19 05:22 Labs: Abnormal Lab Results - Last 24 Hours (Table) 12/05/19 12/05/19 12/05/19 Range/Units 21:07 21:07 21:07 WBC 17.3 H (3.8-10.6) k/uL Hct (39.0-53.0) % Neutrophils # 9.7 H (1.3-7.7) k/uL Lymphocytes # 5.5 H (1.0-4.8) k/uL Monocytes # 1.4 H (0-1.0) k/uL PT 17.8 H (9.0-12.0) sec INR 1.8 H (<1.2) APTT 37.3 H (22.0-30.0) sec Sodium 132 L (137-145) mmol/L Chloride 96 L (98-107) mmol/L Carbon Dioxide (22-30) mmol/L Glucose 200 H (74-99) mg/dL Plasma Lactic Acid Geoff (0.7-2.0) mmol/L Alkaline Phosphatase (38-126) U/L Troponin I (0.000-0.034) ng/mL 12/05/19 12/05/19 12/06/19 Range/Units 21:07 23:00 05:22 WBC (3.8-10.6) k/uL Hct (39.0-53.0) % Neutrophils # (1.3-7.7) k/uL Lymphocytes # (1.0-4.8) k/uL Monocytes # (0-1.0) k/uL PT (9.0-12.0) sec INR (<1.2) APTT >200.0 H* (22.0-30.0) sec Sodium (137-145) mmol/L Chloride (98-107) mmol/L Carbon Dioxide (22-30) mmol/L Glucose (74-99) mg/dL Plasma Lactic Acid Geoff 2.6 H* (0.7-2.0) mmol/L Alkaline Phosphatase (38-126) U/L Troponin I 0.035 H* (0.000-0.034) ng/mL 12/06/19 12/06/19 12/06/19 Range/Units 05:22 05:22 05:22 WBC 14.6 H (3.8-10.6) k/uL Hct 53.2 H (39.0-53.0) % Neutrophils # (1.3-7.7) k/uL Lymphocytes # (1.0-4.8) k/uL Monocytes # (0-1.0) k/uL PT (9.0-12.0) sec INR (<1.2) APTT (22.0-30.0) sec Sodium 136 L (137-145) mmol/L Chloride (98-107) mmol/L Carbon Dioxide 20 L (22-30) mmol/L Glucose 212 H (74-99) mg/dL Plasma Lactic Acid Geoff (0.7-2.0) mmol/L Alkaline Phosphatase 135 H (38-126) U/L Troponin I 0.047 H* (0.000-0.034) ng/mL Thrombosis Risk Factor Assmnt - Choose All That Apply Any of the Below Risk Factors Present?: Yes Each Factor Represents 1 point: Abnormal pulmonary function (COPD) Other Risk Factors: Yes Each Risk Factor Represents 2 Points: Age 61-74 years Other congenital or acquired thrombophilia - If yes, enter type in comment: No Thrombosis Risk Factor Assessment Total Risk Factor Score: 3 Thrombosis Risk Factor Assessment Level: Moderate Risk
[2019-12-06] MEDS ORDERED: RIVAROXABAN 20 MG TAB PO SCH (17:30)
[2019-12-06] MEDS ORDERED: FUROSEMIDE 10 MG/ML 4 ML VIAL IV SCH (21:00)
[2019-12-06] MEDS: lisinopriL 5 MG TAB PO SCH (21:02)
[2019-12-06] MEDS: ATORVASTATIN 80 MG TAB PO SCH (21:03)
[2019-12-06] MEDS ORDERED: ONDANSETRON 4 MG/2 ML VIAL IVP STA (21:55)
[2019-12-07] MEDS: SODIUM CHLORIDE 0.9% 1,000 ML IV SCH ×2 (03:13→23:17)
[2019-12-07 06:45] LABS: HCT 48.6 % (39.0-53.0); HGB 16.7 gm/dL (13.0-17.5); MCH 31.2 pg (25.0-35.0); MCHC 34.3 g/dL (31.0-37.0); MCV 91.1 fL (80.0-100.0); Mean Platelet Volume 9.9; Platelet Count 206 k/uL (150-450); RBC 5.33 m/uL (4.30-5.90); RDW 13.1 % (11.5-15.5); WBC 19.5 k/uL (3.8-10.6)
[2019-12-07 06:56] LABS: Potassium 4.8 mmol/L (3.5-5.1)
--- NOTE | 2019-12-07 07:52 | XR ---
EXAMINATION TYPE: XR chest 1V portable DATE OF EXAM: 12/07/2019 COMPARISON: 12/06/2019 HISTORY: Shortness of breath TECHNIQUE: Single frontal view of the chest is obtained. FINDINGS: Hyperinflation suggests COPD. Diffuse interstitial pattern with bilateral infiltrate and p leural effusion greater right. There is a cardiac device. Additional cardiac leads extending from the left chest. No pneumothorax. Biapical pleural thickening. IMPRESSION: 1. Progressing diffuse pleural-parenchymal changes correlate for CHF with increasing right-sided cons olidation and pleural effusion. Underlying pneumonia not excluded.
--- NOTE | 2019-12-07 08:14 | P.PN ---
Subjective Progress Note Date: 12/07/19 Principal diagnosis: An AICD shocks This is a 69-year-old gentleman was coronary artery disease and prior coronary artery revascularization as well as severe ischemic cardiomyopathy as well as a status post AICD who was admitted to the hospital with AICD shocks. The device was interrogated and revealed appropriate shocks. The patient was seen today December [id number]. He is not in any pain at this point. He was started on Lasix IV yesterday because a chest x-ray showed findings consistent with CHF. The creatinine is worse today. I am going to decrease the dose of Lasix to 40 mg IV daily. He is on amiodarone IV which I am going to switch him to amiodarone by mouth. The electrolytes were checked this morning and seems to be within normal limits. When he presented to the hospital he was in atrial fibrillation with RVR and that was a newly diagnosed as the pat ient. Currently the patient is in normal sinus rhythm. Objective - Vital Signs Vital signs: Vital Signs Temp 97.7 F 12/07/19 04:00 Pulse 86 12/07/19 06:00 Resp 25 H 12/07/19 06:00 BP 113/74 12/07/19 06:00 Pulse Ox 93 L 12/07/19 06:00 Intake & Output 12/06/19 12/07/19 12/07/19 18:59 06:59 18:59 Intake Total 982.952 220 Output Total 916 633 Balance 66.952 -413 Weight 81.4 kg Intake: IV 20 220 Sodium Chloride 0.9% 1, 20 220 000 ml @ 20 mls/hr IV . Q24H [facility] Rx#:[id number] Intake, IV Titration 602.952 Amount Amiodarone 300 mg In 382.083 Dextrose 5% in Water 250 ml @ 0.5 MG/MIN 25 mls/hr IV .Q10H [facility] Rx#: [id number] Heparin Sod,Pork in 0.45% 220.869 NaCl 25,000 unit In 0.45 % NaCl 1 250ml.bag @ 18 UNITS/KG/HR 14.043 mls/hr IV .[id number] [facility] Rx#: [id number] Oral 360 Output: Urine 915 630 Stool 1 3 Other: Voiding Method Indwelling Catheter Indwelling Catheter - Constitutional General appearance: Present: no acute distress - Respiratory Respiratory: bilateral: CTA - Cardiovascular Rhythm: regular Heart sounds: normal: S1, S2 - Labs CBC & Chem 7: 12/07/19 06:05 12/07/19 06:05 Labs: Abnormal Lab Results - Last 24 Hours (Table) 12/06/19 12/06/19 12/06/19 Range/Units 05:22 05:22 15:12 WBC (3.8-10.6) k/uL APTT >200.0 H* (22.0-30.0) sec Sodium 136 L (137-145) mmol/L Carbon Dioxide 20 L (22-30) mmol/L BUN (9-20) mg/dL Creatinine (0.66-1.25) mg/dL Glucose 212 H (74-99) mg/dL Alkaline Phosphatase 135 H (38-126) U/L Troponin I 0.047 H* (0.000-0.034) ng/mL 12/07/19 12/07/19 Range/Units 06:05 06:05 WBC 19.5 H (3.8-10.6) k/uL APTT (22.0-30.0) sec Sodium 133 L (137-145) mmol/L Carbon Dioxide (22-30) mmol/L BUN 22 H (9-20) mg/dL Creatinine 1.79 H (0.66-1.25) mg/dL Glucose 122 H (74-99) mg/dL Alkaline Phosphatase (38-126) U/L Troponin I (0.000-0.034) ng/mL Microbiology - Last 24 Hours (Table) 12/05/19 22:50 Blood Culture - Preliminary Blood No Growth after 24 hours Assessment and Plan Assessment: Assessment #1 status post an AICD shocks #2 known severe cardiomyopathy #3 known coronary artery disease with prior revascularization #4 atrial fibrillation with RVR and the patient converted to normal sinus mechanism #5 heart failure with reduced ejection fraction exacerbation Plan #1 decrease the dose of Lasix in view of the worse kidney function #2 continue monitor the kidney function and electrolytes #3 stop Amiodarone IV IV and start the patient on amiodarone by mouth
[2019-12-07] MEDS: AMIODARONE 200 MG TAB PO SCH ×2 (08:27→20:25)
[2019-12-07] MEDS: ASPIRIN 325 MG TAB PO SCH (08:27)
[2019-12-07] MEDS: METOPROLOL TARTRATE 50 MG TAB PO SCH (08:27)
[2019-12-07] MEDS: FUROSEMIDE 10 MG/ML 4 ML VIAL IV SCH (08:28)
--- NOTE | 2019-12-07 11:53 | ECHOF ---
Referral Reason:lv function MEASUREMENTS -------- HEIGHT: 175.3 cm WEIGHT: 81.2 kg BP: 113/74 IVSd: 1.2 cm (0.6 - 1.1) LVIDd: 4.7 cm (3.9 - 5.3) LVPWd: 1.1 cm (0.6 - 1.1) IVSs: 1.5 cm LVIDs: 4.0 cm LVPWs: 1.4 cm LA Diam: 3.5 cm (2.7 - 3.8) RVIDd: 3.1 cm (< 3.3) Ao Diam: 3.3 cm (2.0 - 3.7) AV Cusp: 1.7 cm (1.5 - 2.6) EPSS: 2.3 cm MV E Nam: 0.92 m/s MV DecT: 268 ms MV A Nam: 0.51 m/s MV E/A Ratio: 1.80 RAP: 5.00 mmHg RVSP: 44.89 mmHg MV EF SLOPE: 75.08 mm/s (70 - 150) MV EXCURSION: 13.34 mm (> 18.000) FINDINGS -------- AICD This was a technically adequate study. The left ventricular size is normal. There is borderline concentric left ventricular hypertrophy. Overall left ventricular systolic function is moderate-severely impaired with, an EF between 30 - 35 %. Basal inferior LV wall motion is hypokinetic. Basal inferoseptal LV wall motion is hypokinet ic. The right ventricle is normal in size. The left atrial size is normal. The right atrium was not well visualized. Interatrial and interventricular septum intact. The aortic valve is trileaflet and appears structurally normal. The mitral valve leaflets are mildly thickened. Mild mitral annular calcification present. Mild m itral regurgitation is present. Moderate tricuspid regurgitation present. There is mild to moderate pulmonary hypertension. The r ight ventricular systolic pressure, as measured by Doppler, is 44.89mmHg. There is no pulmonic regurgitation present. The aortic root size is normal. Normal inferior vena cava with normal inspiratory collapse consistent with estimated right atrial pre ssure of 5 mmHg. There is no pericardial effusion. CONCLUSIONS -------- 1. AICD 2. The left ventricular size is normal. 3. There is borderline concentric left ventricular hypertrophy. 4. Overall left ventricular systolic function is moderate-severely impaired with, an EF between 30 - 35 %. 5. Basal inferior LV wall motion is hypokinetic. 6. Basal inferoseptal LV wall motion is hypokinetic. 7. The mitral valve leaflets are mildly thickened. 8. Mild mitral annular calcification present. 9. Mild mitral regurgitation is present. 10. Moderate tricuspid regurgitation present. 11. There is mild to moderate pulmonary hypertension. 12. The right ventricular systolic pressure, as measured by Doppler, is 44.89mmHg. 13. There is no pericardial effusion. DEVELOPER [employer] MECHANICAL: Maria Teresa Bartholomew RDCS
--- NOTE | 2019-12-07 12:37 | P.PN ---
Subjective Progress Note Date: 12/07/19 Principal diagnosis: Acute hypoxic respiratory failure secondary to acute pulmonary edema secondary to chronic systolic dysfunction. This 69-year-old male patient has CAD with multivessel disease and multiple stents placed in the past, in addition to history of ischemic cardiomyopathy and the patient has an AICD in place. The patient has had previous VT ablation. He has also approximately atrial fibrillation. The patient was driving yesterday when he had his ileostomy discharge and this happened twice and the second one a few minutes later after the first shock. The patient denies having any chest pain. He was having progressive increased shortness of breath over the past 2 weeks. He was brought into the hospital. He was started on amiodarone drip and his current rhythm is A. fib. His chest x-ray showed pulmonary edema and there was increased infiltration of the right lung base more than the left. There was no evidence of any lung masses or tumors. There may be some small bilateral pleural effusions. The patient denies having any cough or sputum production. No hemoptysis. No pleurisy. White cell count of 14.6. Creatinine is at 1.05. The lactic acid level at 2.6. ProBNP level is 4250. The pro calcitonin level is still pending for now. The patient was given a dose of Rocephin and Zithromax in the ED. The patient has no focal neurological deficits. The patient has no chest pain. He has not required any pressors. Patient was reevaluated today on 12/07/19, patient remains in the ICU, presently on 6 L/m via nasal cannula, O2 saturations 97%. He was seen by cardiology, and his IV amiodarone was switched to oral amiodarone. Remains on Lasix for his pulmonary edema. Chest x-ray continues to show evidence of congestive heart failure. Underlying pneumonia is felt to be very unlikely. Patient is empirically on antibiotics, but he is mostly on diuretics, his WBC count is however elevated at 19.5, hemoglobin is 16.7. His electrolytes are normal renal functioning is a bit worse and I believe it is mostly cardiorenal his creatinine is 1.79 today. His BNP level was elevated over 4000, pro calcitonin is 0.05 Objective - Vital Signs Vital signs: Vital Signs Temp 97.9 F 12/07/19 07:00 Pulse 81 12/07/19 11:00 Resp 15 12/07/19 11:00 BP 91/60 12/07/19 11:00 Pulse Ox 98 12/07/19 11:00 Intake & Output 12/06/19 12/07/19 12/07/19 18:59 06:59 18:59 Intake Total 982.952 220 Output Total 916 633 960 Balance 66.952 -413 -960 Weight 81.4 kg Intake: IV 20 220 Sodium Chloride 0.9% 1, 20 220 000 ml @ 20 mls/hr IV . Q24H [facility] Rx#:[id number] Intake, IV Titration 602.952 Amount Amiodarone 300 mg In 382.083 Dextrose 5% in Water 250 ml @ 0.5 MG/MIN 25 mls/hr IV .Q10H [facility] Rx#: [id number] Heparin Sod,Pork in 0.45% 220.869 NaCl 25,000 unit In 0.45 % NaCl 1 250ml.bag @ 18 UNITS/KG/HR 14.043 mls/hr IV .[id number] [facility] Rx#: [id number] Oral 360 Output: Urine 915 630 960 Stool 1 3 Other: Voiding Method Indwelling Catheter Indwelling Catheter Indwelling Catheter - Exam GENERAL: Reveals 69-year-old white male in no distress. Very pleasant. On 6 L nasal cannula. O2 saturations 97% EYES: PERRLA, EOMI, no active. HEENT: Neck supple no neck masses no JVD no stridor. NECK: JVD not raised; masses not palpable. HEART: Irregular irregular rhythm, normal S1 and S2, no S3 gallop. LUNGS: Symmetrical chest expansion, crackles at the bases, no rhonchi no wheezes. ABDOMEN: Soft nontender no megaly no rebound no guarding. PSYCH: Normal mood, affect and normal mental status examination. NEUROLOGICAL: Alert and oriented 3 no gross focal neurologic deficits. LYMPHATICS: no cervical lymphadenopathy. skin: No rashes. - Labs CBC & Chem 7: 12/07/19 06:05 12/07/19 06:05 Labs: Abnormal Lab Results - Last 24 Hours (Table) 12/06/19 12/07/19 12/07/19 Range/Units 15:12 06:05 06:05 WBC 19.5 H (3.8-10.6) k/uL APTT >200.0 H* (22.0-30.0) sec Sodium 133 L (137-145) mmol/L BUN 22 H (9-20) mg/dL Creatinine 1.79 H (0.66-1.25) mg/dL Glucose 122 H (74-99) mg/dL Microbiology - Last 24 Hours (Table) 12/05/19 22:50 Blood Culture - Preliminary Blood No Growth after 24 hours Assessment and Plan Assessment: Impression: Acute pulmonary edema secondary to systolic congestive heart failure Ischemic cardiomyopathy with previous AICD placement Acute discharge of AICD 2 History of multivessel coronary artery disease with previous AK and previous coronary stenting History of tachycardia requiring ablation. Dyslipidemia. Atrial fibrillation with RVR. Recommendation: Continue amiodarone. Continue beta blockers. Continue diuretics. IV fluid at KVO. AICD being interrogated. Cardiology is following. Follow-up chest x-ray in the next 24 hours. We'll continue to follow. Time with Patient: Less than 30
--- NOTE | 2019-12-07 12:42 | CDI ---
Documentation Clarification Form Date: 12/07/2019 CDS: Cinthia Cortes RN, CCDS Admit Date: 12/05/2019 Patient Name: Gerber Obrien ATTENTION: The Clinical Documentation Specialists (CDI) and [facility] Coding Staff appreciate your assistance in clarifying documentation. Please respond to the clarification below the line at the bottom and electronically sign. The CDI & [facility] Coding staff will review the response and follow-up if needed. Please note: Queries are made part of the Legal Health Record. If you have any questions, please contact the author of this message via ITS. Dr. Walker Marie, Heart failure with reduced ejection exacerbation Is documented in your Progress Note 12/06 History/Risk Factors: 69-year-old male presents to the ED with shortness of breath. Medical History AICD; Atrial Fibrillation; Ischemic Cardiomyopathy and Coronary artery disease. Home medications; Enalapril daily, Lopressor daily Clinical Indicators: Per Cardiology Consult 12/05 Consistent with congestive heart failure that is increased compared to yesterday. 12/04 VSS: B/P: 134/100; HR: 141; Temp: 97.6; RR: 19; SpO2 96% 2L nasal cannula 12/05 BNP: 4250 Echocardiogram Results: None available 12/05 Chest X Ray: Pulmonary Interstitial edema with right-sided pleural fluid and right lower lobe infiltrate. Treatment: 12/05 Lopressor po daily; 12/05 Lasix IV stat x2; Lasix IV BID changed 12/05 to Daily In your professional opinion, can you please clarify the acuity and type of CHF if known? Acute Systolic Heart Failure Acute on Chronic Systolic Heart Failure Acute Systolic & Diastolic Heart Failure Acute on Chronic Systolic & Diastolic Heart Failure Unable to Determine Other, please specify (Last Revision: June 2017) Documented in Dr. Chidi KING 12/06 -Acute congestive heart failure exacerbation from systolic dysfunction EF 30-35%-8 MTDD
[2019-12-07] MEDS ORDERED: RIVAROXABAN 15 MG TAB PO SCH (17:30)
[2019-12-07] MEDS: ATORVASTATIN 80 MG TAB PO SCH (20:25)
[2019-12-07] MEDS: lisinopriL 5 MG TAB PO SCH (22:12)
--- NOTE | 2019-12-07 22:49 | P.PN ---
Progress Note - Text Progress Note Date: 12/07/19 Chief Complaint: AICD firing History of presenting complaint: This is a pleasant 69-year-old patient of Dr. Cheatham. Chronic stable medical conditions include coronary artery disease, hyperlipidemia, multiple MIs in the past, coronary stent, peptic ulcer disease, ischemic cardiomyopathy, previous V. tach ablation, atrial fibrillation,. Patient was driving home yesterday when he saw lights flashing and then his AICD kicked in twice. Presented to the ER. Admitted to the floor. Patient became short of breath. Had to be given Lasix and put on a BiPAP. Then transferred to the ICU. AICD interrogation did show V. tach. Patient put on IV amiodarone. This morning patient is feeling better. Daughter the bedside. Patient had been on eliquis previously. Because the co- pay was very high patient stopped taking it. Just last week he was started on Xarelto. [id number] given IV Lasix earlier. Per cardiology and also had atrial fibrillation. changed from IV amiodarone to by mouth amiodarone.breathing better. Review of systems: Was done for constitutional, cardiovascular, GI, pulmonary. relevant finding as above Active Medications Amiodarone HCl (Amiodarone 200 Mg Tab) 400 mg PO BID PENDING SALE TO [facility] Last Admin: 12/07/19 20:25 Dose: 400 mg Documented by: Aspirin (Aspirin 325 Mg Tab) 325 mg PO DAILY PENDING SALE TO [facility] Last Admin: 12/07/19 08:27 Dose: 325 mg Documented by: Atorvastatin Calcium (Atorvastatin 80 Mg Tab) 80 mg PO [facility] Last Admin: 12/07/19 20:25 Dose: 80 mg Documented by: Furosemide (Furosemide 10 Mg/Ml 4 Ml Vial) 40 mg IV DAILY [facility]END[facility] TO [facility] Last Admin: 12/07/19 08:28 Dose: 40 mg Documented by: Sodium Chloride (Saline 0.9%) 1,000 mls @ 20 mls/hr IV .Q24H PEND[facility] SALE TO [facility] Last Admin: 12/07/19 03:13 Dose: Not Given Documented by: Lisinopril (Lisinopril 5 Mg Tab) 5 mg PO [facility] Last Admin: 12/07/19 22:12 Dose: Not Given Documented by: Metoprolol Tartrate (Metoprolol Tartrate 50 Mg Tab) 50 mg PO DAILY [facility] TO [facility] Last Admin: 12/07/19 08:27 Dose: 50 mg Documented by: Naloxone HCl (Naloxone 0.4 Mg/Ml 1 Ml Vial) 0.2 mg IV Q2M PRN PRN Reason: Opioid Reversal Rivaroxaban (Rivaroxaban 15 Mg Tab) 15 mg PO W/SUPPER [facility] Last Admin: 12/07/19 17:30 Dose: Not Given Documented by: Physical examination: VITAL SIGNS:recent 0.9, 83, 18, 97/67, 93% on 6 L GENERAL: propped up in bed, more comfortable EYES: Pupils equal. Conjunctiva normal. NECK: JVD not raised; masses not palpable. HEART: heart sounds irregular; no edema. LUNGS: Respiratory rate increased, decreased breath sounds. ABDOMEN: Soft, nontender, liver spleen not palpable, no masses palpable. PSYCH: Alert and oriented x3; mood and affect normal. INVESTIGATIONS, reviewed in the clinical context: White count 19.5 hemoglobin 16.7 potassium 4.8 creatinine 1.79 2-D echocardiogram-EF 30-35%. Wall motion abnormalities. Moderate TR, Previous testing White count 7.3 hemoglobin 17.1 INR 1.8 potassium 3.9 creatinine 1.17 Lactic acid 2. 6 repeat 2.4 Troponin I 0.035, 0.047 EKG tracing personally reviewed by [id number] tachycardia Chest x-ray film personally reviewed by me-pulmonary edema Assessment: -AICD firing 2, underlying rhythm of ventricular tachycardia -Coronary artery disease with prior history of stents -Acute congestive heart failure exacerbation from systolic dysfunction EF 30-35%-8 initially requiring BiPAP -Moderate tricuspid regurgitation -Hyperlipidemia -Persistent atrial fibrillationand flutter -Chronic nicotine dependence patient active cigarette smoker -Ischemic cardiomyopathy -Acute kidney injury likely prerenal from diuretics-new diagnosis Plan: we will hold off AGUSTIN inhibitor for now.patient is on IV Lasix per cardiology.consult nephrology. Discussed with the patient. Check BMP in the morning. Hold morning dose of IV Lasix until evaluated by cardiology.
[2019-12-08 07:24] LABS: HCT 47.6 % (39.0-53.0); HGB 15.4 gm/dL (13.0-17.5); MCH 29.4 pg (25.0-35.0); MCHC 32.4 g/dL (31.0-37.0); MCV 90.8 fL (80.0-100.0); Mean Platelet Volume 9.6; Platelet Count 244 k/uL (150-450); RBC 5.24 m/uL (4.30-5.90); RDW 13.3 % (11.5-15.5)
[2019-12-08 07:33] LABS: Calcium 8.8 mg/dL (8.4-10.2); Potassium 4.3 mmol/L (3.5-5.1)
--- NOTE | 2019-12-08 07:46 | P.PN ---
Subjective Progress Note Date: 12/08/19 Principal diagnosis: An AICD shocks This is a 69-year-old gentleman was coronary artery disease and prior coronary artery revascularization as well as severe ischemic cardiomyopathy as well as a status post AICD who was admitted to the hospital with AICD shocks. The device was interrogated and revealed appropriate shocks. The patient was seen today December 072019. Overall he is feeling better in terms of shortness of breath and no symptoms of chest pain or chest dis comfort. He underwent an echocardiogram which revealed impaired LV function was EF around 35%. Currently he is on amiodarone by mouth. He is on metoprolol by mouth. I'm going to double the dose of metoprolol. We'll obtain a 12 please EKG this morning. He continues to be on Lasix IV. The chest x-ray was reviewed this morning and continues to show right pleural effusion. Kidney function cont inues to be within normal limits. He continues to be on oral anticoagulation as well. Objective - Vital Signs Vital signs: Vital Signs Temp 98.1 F 12/08/19 04:00 Pulse 93 12/08/19 07:00 Resp 19 12/08/19 07:00 BP 111/68 12/08/19 07:00 Pulse Ox 94 L 12/08/19 07:00 Intake & Output 12/07/19 12/08/19 12/08/19 18:59 06:59 18:59 Intake Total 320 500 Output Total 1277 375 30 Balance -1277 -55 470 Weight 77.5 kg Intake: IV 220 20 Sodium Chloride 0.9% 1, 220 20 000 ml @ 20 mls/hr IV . Q24H [facility] Rx#:[id number] Oral 100 480 Output: Urine 1277 375 30 Other: Voiding Method Indwelling Catheter Indwelling Catheter - Constitutional General appearance: Present: no acute distress - Respiratory Respiratory: right: diminished - Cardiovascular Rhythm: regular Heart sounds: normal: S1, S2 - Labs CBC & Chem 7: 12/08/19 06:40 12/08/19 06:40 Labs: Abnormal Lab Results - Last 24 Hours (Table) 12/08/19 12/08/19 Range/Units 06:40 06:40 WBC 20.0 H (3.8-10.6) k/uL Sodium 134 L (137-145) mmol/L BUN 31 H (9-20) mg/dL Glucose 129 H (74-99) mg/dL Microbiology - Last 24 Hours (Table) 12/05/19 22:50 Blood Culture - Preliminary Blood No Growth after 48 hours Assessment and Plan Assessment: Assessment #1 status post an AICD shocks #2 known severe cardiomyopathy #3 known coronary artery disease with prior revascularization #4 atrial fibrillation with RVR and the patient converted to normal sinus mechanism #5 heart failure with reduced ejection fraction exacerbation Plan #1 continue the current medical regimen including amiodarone by mouth #2 increase the dose of metoprolol #3 continue oral anticoagulation #4 continue Lasix IV #5 follow-up with the patient
--- NOTE | 2019-12-08 08:10 | XR ---
EXAMINATION TYPE: XR chest 1V portable DATE OF EXAM: 12/08/2019 COMPARISON: Prior chest x-ray 12/07/2019 HISTORY: Congestive heart failure TECHNIQUE: Single frontal view of the chest is obtained. FINDINGS: There is a generator in the left pectoral region, lead in the right ventricle. Additional generator in the left lateral chest region, additional lead overlying the left lower chest. Apical pl eural thickening persists on the right, there is no pneumothorax. Possible loculated effusion present at the level of the right costophrenic angle shows a similar appearance. Perihilar airspace disease is present on the right, interstitium is prominent bilaterally. Heart size is stable. IMPRESSION: Findings are similar to prior exam. There may be component of interstitial and pulmonary edema, probable right-sided loculated pleural effusion, correlate to exclude pneumonia.
--- NOTE | 2019-12-08 08:12 | US ---
EXAMINATION TYPE: US chest DATE OF EXAM: 12/08/2019 COMPARISON: Chest x-ray same date CLINICAL HISTORY: Markings for thoracentesis by pulmonary staff. Chest marking TECHNIQUE: Targeted ultrasound of the posterior lower bilateral hemithoraces EXAM MEASUREMENTS: Right Pleural Effusion pocket size: 6.1 cm Right skin surface to fluid distance: 2.7 cm Left Pleural Effusion pocket size: 8.1 cm Left skin surface to fluid distance: 2.6 cm Lung seen within anterior portion of fluid pocket Right side marked for possible thoracentesis outside the dept. Left side marked for possible thoracentesis outside the dept. Pulmonologists are able to review the images in the patient?s EMR. IMPRESSIONS: Bilateral pleural effusions
[2019-12-08] MEDS: AMIODARONE 200 MG TAB PO SCH ×2 (08:44→21:21)
[2019-12-08] MEDS: ASPIRIN 325 MG TAB PO SCH (08:45)
[2019-12-08] MEDS: METOPROLOL TARTRATE 50 MG TAB PO SCH ×2 (08:45→21:21)
[2019-12-08] MEDS: FUROSEMIDE 10 MG/ML 4 ML VIAL IV SCH (08:45)
--- NOTE | 2019-12-08 09:40 | P.NPCON ---
History of Present Illness - Reason for Consult acute renal failure - History of Present Illness reason for consultation: Acute kidney injury History of present illness: 69-year-old male seen in renal consultation for acute kidney injury. Patient presented to the hospital on December 04 due to his defibrillator going off. Patient states she was driving and felt a shock to his chest. He pulled over to the side and was brought to the hospital by the EMS. He does have an AICD which was interrogated. He currently denies any chest pain or shortness of breath. He is maintained on Lasix 40 mg IV once daily. Urine output is good. No hematuria or dysuria. Patient has systolic CHF with ejection fraction of 30-35% with moderate tricuspid regurgitation and pulmonary hypertension. He is noted to have bilateral pleural effusions and is scheduled for potential thoracentesis today. He is maintained on lisinopril. Blood pressure is between 110-120 systolic. Denies use of nonsteroidals. No history of diabetes. Denies personal or family history of kidney disease. patient's PTT is noted to be quite elevated. He does complain of bringing up red tinged phlegm. Vital signs are stable. General: The patient appeared well nourished and normally developed. HEENT: Head exam is unremarkable. Neck is without jugular venous distension. LUNGS: Lungs are clear to auscultation and percussion. Breath sounds decreased. HEART: Rate and Rhythm are regular. ABDOMEN: soft, nontender. EXTREMITITES: trace edema. Past Medical History Past Medical History: Hyperlipidemia, Myocardial Infarction (VT) Additional Past Medical History / Comment(s): X3 VT'S, ULCER YEARS AGO, bradycardia Last Myocardial Infarction Date:: 2004 History of Any Multi-Drug Resistant Organisms: None Reported Past Surgical History: AICD, Cardiac Ablation, Heart Catheterization With Stent, Orthopedic Surgery, Pacemaker Additional Past Surgical History / Comment(s): CARDIOVERSION, HEART STENTS X7, cardiac ablation x 2 in the past and again om 12-05-15, rt wrist surgery after injury Past Anesthesia/Blood Transfusion Reactions: Unable to Obtain Additional Past Anesthesia/Blood Transfusion Reaction / Comment(s): NEVER HAS HAD GENERAL ANESTHESIA Date of Last Stent Placement:: 2004 Type of Cardiac Device: AICD Device Placement Date:: Past Psychological History: No Psychological Hx Reported Additional Psychological History / Comment(s): occ deprssion but denies any suicidal ideations and no hoplessness Smoking Status: Current every day smoker Past Alcohol Use History: Occasional Additional Past Alcohol Use History / Comment(s): STARTED SMOKING AT AGE 10, smokes half a pack a day Past Drug Use History: None Reported - Past Family History Father Additional Family Medical History / Comment(s): DAD HAD PACER BUT NO OTHER HX KNOWN Mother Family Medical History: No Reported History Additional Family Medical History / Comment(s): pt stated does'nt know medical hx on parents. Medications and Allergies Home Medications Medication Instructions Recorded Confirmed Type Atorvastatin [Lipitor] 80 mg PO HS 11/27/13 12/05/19 History Enalapril Maleate 2.5 mg PO HS 11/27/13 12/05/19 History Aspirin EC [Ecotrin] 325 mg PO DAILY 12/05/19 12/05/19 History Metoprolol Tartrate [Lopressor] 50 mg PO DAILY 12/05/19 12/05/19 History Xarelto Unknown Dose 1 tab PO BID 12/05/19 12/05/19 History Rivaroxaban [Xarelto] 15 mg PO DAILY #30 tab 12/07/19 Rx Allergies Allergy/AdvReac Type Severity Reaction Status Date / Time No Known Allergies Allergy Verified 12/05/19 22:04 Physical Exam Vitals: Vital Signs Temp Pulse Resp BP Pulse Ox 12/08/19 09:00 92 22 114/68 95 12/08/19 08:00 89 25 H 113/76 96 12/08/19 07:00 93 19 111/68 94 L 12/08/19 06:00 92 20 105/81 94 L 12/08/19 05:00 99 19 109/65 92 L 12/08/19 04:00 98.1 F 81 17 93/60 94 L 12/08/19 03:00 93 21 85/59 94 L 12/08/19 02:00 77 28 H 96/55 93 L 12/08/19 01:00 81 19 89/49 94 L 12/08/19 00:00 98.0 F 76 19 88/62 92 L 12/07/19 23:00 90 19 83/56 95 12/07/19 22:00 85 20 98/60 95 12/07/19 21:00 83 18 97/67 93 L 12/07/19 20:24 94 L 12/07/19 20:00 97.9 F 84 27 H 96/64 98 12/07/19 19:00 86 19 113/74 93 L 12/07/19 18:30 77 6 L 113/74 97 12/07/19 18:00 84 17 98/66 98 12/07/19 17:30 85 19 98/66 96 12/07/19 17:00 98.3 F 83 24 101/66 97 12/07/19 16:30 84 24 101/66 98 12/07/19 16:00 78 17 99/80 98 12/07/19 15:30 83 18 99/80 97 12/07/19 15:00 85 22 101/65 94 L 12/07/19 14:30 80 20 101/65 97 12/07/19 14:00 82 14 100/68 94 L 12/07/19 13:30 82 19 100/68 94 L 12/07/19 13:00 80 21 92/69 96 12/07/19 12:30 85 32 H 92/69 97 12/07/19 12:00 98.0 F 80 24 94/68 96 12/07/19 11:30 81 21 94/68 95 12/07/19 11:00 81 15 91/60 98 12/07/19 10:30 74 9 L 91/60 97 12/07/19 10:00 74 14 114/69 97 Intake and Output 12/07/19 12/08/19 12/08/19 22:59 06:59 14:59 Intake Total 160 160 540 Output Total 327 240 105 Balance -167 -80 435 Intake: IV 60 160 60 Sodium Chloride 0.9% 1, 60 160 60 000 ml @ 20 mls/hr IV . Q24H [facility] Rx#:[id number] Oral 100 480 Output: Urine 327 240 105 Other: Voiding Method Indwelling Catheter Weight 77.5 kg Results - Lab Results Most recent lab results Calcium 8.8 mg/dL (8.4-10.2) 12/08/19 06:40 Magnesium 2.0 mg/dL (1.6-2.3) 12/08/19 06:40 12/08/19 06:40 12/08/19 06:40 Assessment and Plan Plan: assessment: 1. Acute kidney injury mostly prerenal secondary to hemodynamic stability andcardiorenal syndrome. creatinine peaked at 1.79 on December 06 and is 1.2 today. 2. A. fib with RVR maintained on amiodarone and Lopressor. Also on anticoagulation. 3. Acute on chronic systolic CHF with ejection fraction of 30-35% with moderate tricuspid regurgitation and pulmonary hypertension. 4. Volume overload with bilateral pleural effusions. 5. Coronary artery disease. Patient states he has 5 stents. 6. Benign hypertension. Controlled. Plan: Maintain Lasix 40 mg IV once daily. I will give him an extra dose this evening. Check urinalysis. Hold lisinopril for systolic blood pressure less than 120. Potential thoracentesis today. Continue to monitor renal function and urine output. Thank you for the consultation. I will continue to follow patient with you during his hospital stay.
--- NOTE | 2019-12-08 10:54 | XR ---
EXAMINATION TYPE: XR chest 1V portable DATE OF EXAM: 12/08/2019 COMPARISON: Prior chest x-ray 12/08/2019 at earlier time HISTORY: Status post right thoracentesis TECHNIQUE: frontal view of the chest is obtained on 2 images. FINDINGS: There is interval improved aeration at the right lung base. There is no pneumothorax or ot her significant interval change. IMPRESSION: No evident complication status post right thoracentesis
[2019-12-08 11:55] LABS: Appearance,Urine Clear (Clear); Bilirubin,Urine Negative (Negative); Blood,Urine Large (Negative); Color,Urine Light Yellow; Glucose,Urine (UA) Negative (Negative); Hyaline Casts,Urine 1 /lpf (0-2); Ketones,Urine Negative (Negative); Leukocyte Esterase,Urine Small (Negative); Mucus,Urine Rare /hpf; Nitrite,Urine Negative (Negative); PH, Urine 5.5 (5.0-8.0); Protein,Urine Negative (Negative); RBC,Urine 57 /hpf (0-5); Specific Gravity,Urine 1.007 (1.001-1.035); Squamous Epithelial Cell,Urine <1 /hpf (0-4); Urobilinogen,Urine <2.0 mg/dL (<2.0); WBC,Urine 3 /hpf (0-5)
--- NOTE | 2019-12-08 12:27 | PCN ---
PROCEDURE NOTE RIGHT-SIDED THORACENTESIS: PREOPERATIVE DIAGNOSIS: Right side pleural effusion. POSTOPERATIVE DIAGNOSIS: Right side pleural effusion. ANESTHESIA USED: 2 mL of 1% lidocaine. PROCEDURE DESCRIPTION: The patient was placed in a sitting upright position, the area below the right scapula was prepared in a sterile fashion and drapes were applied. At the level of the eighth intercostal space and tip of the scapula, which is the area localized by ultrasound, Lidocaine was injected and the area was locally anesthetized. Then a 22-gauge needle was inserted and advanced into the pleural space, until fluid was localized to the needle. Then a small tiny incision was made at the same site and a standard 8-Serbian thoracentesis catheter and needle were used, advanced at the same site into the pleural space and the was a fluid was obtained. The catheter was advanced over the needle into the pleural space and the needle was pulled out of the pleural space. Freely flowing fluid was removed, roughly 900 mL of slightly dark yellow fluid, freely flowing removed from the right pleural space. The fluid was sent for different diagnostic studies. No evidence of any immediate complications. Chest x-ray showed complete resolution of the pleural effusion and no pneumothorax. MMODL / IJN: [id number] /
--- NOTE | 2019-12-08 13:12 | P.PN ---
Subjective Progress Note Date: 12/08/19 Principal diagnosis: Acute hypoxic respiratory failure secondary to acute pulmonary edema secondary to chronic systolic dysfunction. This 69-year-old male patient has CAD with multivessel disease and multiple stents placed in the past, in addition to history of ischemic cardiomyopathy and the patient has an AICD in place. The patient has had previous VT ablation. He has also approximately atrial fibrillation. The patient was driving yesterday when he had his ileostomy discharge and this happened twice and the second one a few minutes later after the first shock. The patient denies having any chest pain. He was having progressive increased shortness of breath over the past 2 weeks. He was brought into the hospital. He was started on amiodarone drip and his current rhythm is A. fib. His chest x-ray showed pulmonary edema and there was increased infiltration of the right lung base more than the left. There was no evidence of any lung masses or tumors. There may be some small bilateral pleural effusions. The patient denies having any cough or sputum production. No hemoptysis. No pleurisy. White cell count of 14.6. Creatinine is at 1.05. The lactic acid level at 2.6. ProBNP level is 4250. The pro calcitonin level is still pending for now. The patient was given a dose of Rocephin and Zithromax in the ED. The patient has no focal neurological deficits. The patient has no chest pain. He has not required any pressors. Patient was reevaluated today on 12/07/19, patient remains in the ICU, presently on 6 L/m via nasal cannula, O2 saturations 97%. He was seen by cardiology, and his IV amiodarone was switched to oral amiodarone. Remains on Lasix for his pulmonary edema. Chest x-ray continues to show evidence of congestive heart failure. Underlying pneumonia is felt to be very unlikely. Patient is empirically on antibiotics, but he is mostly on diuretics, his WBC count is however elevated at 19.5, hemoglobin is 16.7. His electrolytes are normal renal functioning is a bit worse and I believe it is mostly cardiorenal his creatinine is 1.79 today. His BNP level was elevated over 4000, pro calcitonin is 0.05 Patient was reevaluated today on 12/08/19, remains in the ICU, he is on 6 L nasal cannula, O2 sats is 96%, remains in atrial fibrillation with a rate of 107. IV fluid is at KVO, chest x-ray this morning showed good sized right-sided pleural effusion and a ultrasound of the chest confirmed the finding. Proceeded to ri ght-sided thoracentesis, I was able to drain and had a cc of fluid from the right pleural space. Patient tolerated the procedure well. Although the ultrasound of the chest showed fluid on the left pleural space, the chest x-ray is not impressive for effusion on the left side. Hence I will not that the left side. Patient remains on diuretics, and he is in a negative balance. WBC count today is 20 hemoglobin is 15.4 lites are normal renal profile is improved BUN is 31 creatinine is 1.20 compared to 1.79 yesterday. Objective - Vital Signs Vital signs: Vital Signs Temp 97.9 F 12/08/19 12:00 Pulse 81 12/08/19 12:00 Resp 22 12/08/19 12:00 BP 92/73 12/08/19 12:00 Pulse Ox 93 L 12/08/19 12:00 Intake & Output 12/07/19 12/08/19 12/08/19 18:59 06:59 18:59 Intake Total 320 600 Output Total 9919 564 7998 Balance -1277 -55 -831 Weight 77.5 kg Intake: IV 220 120 Sodium Chloride 0.9% 1, 220 120 000 ml @ 20 mls/hr IV . Q24H REPLACED BY [facility] Rx#:[id number] Oral 100 480 Output: Drainage 900 Right Chest 900 Urine 1277 375 530 Stool 1 Other: Voiding Method Indwelling Catheter Indwelling Catheter Indwelling Catheter - Exam GENERAL: Reveals 69-year-old white male in no distress. Very pleasant. EYES: PERRLA, EOMI, no active. HEENT: Neck supple no neck masses no JVD no stridor. NECK: JVD not raised; masses not palpable. HEART: Irregular irregular rhythm, normal S1 and S2, no S3 gallop. LUNGS: Symmetrical chest expansion, dullness at the right base, left side is clear. ABDOMEN: Soft nontender no megaly no rebound no guarding. PSYCH: Normal mood, affect and normal mental status examination. NEUROLOGICAL: Alert and oriented 3 no gross focal neurologic deficits. LYMPHATICS: no cervical lymphadenopathy. skin: No rashes. - Labs CBC & Chem 7: 12/08/19 06:40 12/08/19 06:40 Labs: Abnormal Lab Results - Last 24 Hours (Table) 12/08/19 12/08/19 12/08/19 Range/Units 06:40 06:40 10:20 WBC 20.0 H (3.8-10.6) k/uL Sodium 134 L (137-145) mmol/L BUN 31 H (9-20) mg/dL Glucose 129 H (74-99) mg/dL Urine Blood Large H (Negative) Ur Leukocyte Esterase Small H (Negative) Urine RBC 57 H (0-5) /hpf Urine Mucus Rare H (None) /hpf Microbiology - Last 24 Hours (Table) 12/05/19 22:50 Blood Culture - Preliminary Blood No Growth after 48 hours Assessment and Plan Assessment: Impression: Acute pulmonary edema secondary to systolic congestive heart failure Ischemic cardiomyopathy with previous AICD placement Acute discharge of AICD 2 History of multivessel coronary artery disease with previous OR and previous coronary stenting History of tachycardia requiring ablation. Dyslipidemia. Atrial fibrillation with RVR. Status post right sided thoracentesis on 12/08/19, 900 mL of fluid was drained and sent for different diagnostic studies. Recommendation: Thoracentesis was performed. Continue amiodarone. Continue beta blockers. Continue diuretics. IV fluid at KVO. Cardiology is following. Consider transferring the patient out of the ICU to a monitor bed on selective. Time with Patient: Less than 30
[2019-12-08 13:31] LABS: Appearance,BF Cloudy; Nucleated Cells, Body Fluid 630 /uL; RBC, Body Fluid 3900 /uL
[2019-12-08 13:33] LABS: Mononuclear WBC,Body Fluid 70 %; Polynuclear WBC,Body Fluid 30 %; Total Cells Counted,Body Fluid 100
[2019-12-08] MEDS: PIPERACILLIN-TAZOBACTAM 3.375 GM in SODIUM CHLORIDE 0.9% 100 ML IVPB SCH (16:24)
[2019-12-08] MEDS: RIVAROXABAN 20 MG TAB PO SCH (16:32)
--- NOTE | 2019-12-08 17:09 | P.PN ---
Progress Note - Text Progress Note Date: 12/08/19 Chief Complaint: AICD firing History of presenting complaint: This is a pleasant 69-year-old patient of Dr. Cheatham. Chronic stable medical conditions include coronary artery disease, hyperlipidemia, multiple MIs in the past, coronary stent, peptic ulcer disease, ischemic cardiomyopathy, previous V. tach ablation, atrial fibrillation,. Patient was driving home yesterday when he saw lights flashing and then his AICD kicked in twice. Presented to the ER. Admitted to the floor. Patient became short of breath. Had to be given Lasix and put on a BiPAP. Then transferred to the ICU. AICD interrogation did show V. tach. Patient put on IV amiodarone. This morning patient is feeling better. Daughter the bedside. Patient had been on eliquis previously. Because the co- pay was very high patient stopped taking it. Just last week he was started on Xarelto.Per cardiology and also had atrial fibrillation. Getting IV Lasix. Also had acute kidney injury likely prerenal and hepatorenal-better with IV Lasix. [id number]. Poor appetite. On IV Lasix. Sitting up in bed. Right pleural effusion --900 cc of pleural fluid removed today. Review of systems: Was done for constitutional, cardiovascular, GI, pulmonary. relevant finding as above Active Medications Amiodarone HCl (Amiodarone 200 Mg Tab) 400 mg PO BID [facility] Last Admin: 12/08/19 08:44 Dose: 400 mg Documented by: Aspirin (Aspirin 325 Mg Tab) 325 mg PO DAILY [facility] Last Admin: 12/08/19 08:45 Dose: 325 mg Documented by: Atorvastatin Calcium (Atorvastatin 80 Mg Tab) 80 mg PO HS [facility] Last Admin: 12/07/19 20:25 Dose: 80 mg Documented by: Furosemide (Furosemide 10 Mg/Ml 4 Ml Vial) 40 mg IV DAILY [facility] Last Admin: 12/08/19 08:45 Dose: 40 mg Documented by: Furosemide (Furosemide 10 Mg/Ml 4 Ml Vial) 40 mg IV ONCE ONE Stop: 12/08/19 17:31 Last Admin: 12/08/19 16:31 Dose: 40 mg Documented by: Sodium Chloride (Saline 0.9%) 1,000 mls @ 20 mls/hr IV .Q24H [facility] Last Admin: 12/07/19 23:17 Dose: 20 mls/hr Documented by: Piperacillin Sod/Tazobactam (Sod 3.375 gm/ Sodium Chloride) 100 mls @ 25 mls/hr IVPB Q12H [facility] Last Admin: 12/08/19 16:24 Dose: 25 mls/hr Documented by: Lisinopril (Lisinopril 5 Mg Tab) 5 mg PO HS [facility] Last Admin: 12/07/19 22:12 Dose: Not Given Documented by: Metoprolol Tartrate (Metoprolol Tartrate 50 Mg Tab) 50 mg PO BID [facility] Last Admin: 12/08/19 08:45 Dose: 50 mg Documented by: Naloxone HCl (Naloxone 0.4 Mg/Ml 1 Ml Vial) 0.2 mg IV Q2M PRN PRN Reason: Opioid Reversal Rivaroxaban (Rivaroxaban 20 Mg Tab) 20 mg PO W/SUPPER [facility] Last Admin: 12/08/19 16:32 Dose: 20 mg Documented by: Physical examination: VITAL SIGNS: 97.9, 81, 23, 110/52, 95% on 6 L GENERAL: propped up in bed, tired EYES: Pupils equal. Conjunctiva normal. NECK: JVD not raised; masses not palpable. HEART: heart sounds irregular; no edema. LUNGS: Respiratory rate increased, decreased breath sounds. ABDOMEN: Soft, nontender, liver spleen not palpable, no masses palpable. PSYCH: Alert and oriented x3; mood and affect normal. INVESTIGATIONS, reviewed in the clinical context: White count 20-hemoglobin 15.4 potassium 4.3 creatinine 1.2 Chest x-ray film-personally reviewed by me-right pleural effusion Previous testing White count 7.3 hemoglobin 17.1 INR 1.8 potassium 3.9 creatinine 1.17 Lactic acid 2. 6 repeat 2.4 Troponin I 0.035, 0.047 EKG tracing personally reviewed by ge-olsk-ismelen tachycardia Chest x-ray film personally reviewed by me-pulmonary edema 2-D echocardiogram-EF 30-35%. Wall motion abnormalities. Moderate TR, Assessment: -AICD firing 2, underlying rhythm of ventricular tachycardia -Coronary artery disease with prior history of stents -Acute congestive heart failure exacerbation from systolic dysfunction EF 30-35%-8 initially requiring BiPAP -Moderate tricuspid regurgitation -Hyperlipidemia -Persistent atrial fibrillationand flutter -Chronic nicotine dependence patient active cigarette smoker -Acute kidney injury likely prerenal from diuretics and hepatorenal-new diagnosis-responding to IV Lasix -Right pleural effusion-status post thoracentesis-900 mL removed Plan: Continue IV Lasix. Follow renal function. Other medications to continue.
[2019-12-08] MEDS ORDERED: FUROSEMIDE 10 MG/ML 4 ML VIAL IV ONE (17:30)
[2019-12-08 18:52] LABS: Glucose, BF Source Pleural Fluid; Glucose, Body Fluid 138 mg/dL; LDH, Body Fluid Source Pleural Fluid; Total Protein, Body Fluid 2000 mg/dL
[2019-12-08] MEDS: ATORVASTATIN 80 MG TAB PO SCH (21:20)
[2019-12-08] MEDS: lisinopriL 5 MG TAB PO SCH (21:21)
[2019-12-09] MEDS: SODIUM CHLORIDE 0.9% 1,000 ML IV SCH ×2 (00:39→21:13)
[2019-12-09] MEDS: PIPERACILLIN-TAZOBACTAM 3.375 GM in SODIUM CHLORIDE 0.9% 100 ML IVPB SCH ×2 (04:41→16:44)
[2019-12-09 06:59] LABS: HGB 14.1 gm/dL (13.0-17.5); MCH 29.7 pg (25.0-35.0); MCHC 32.9 g/dL (31.0-37.0); MCV 90.4 fL (80.0-100.0); Mean Platelet Volume 10.1; Platelet Count 240 k/uL (150-450); RBC 4.76 m/uL (4.30-5.90); RDW 13.3 % (11.5-15.5); WBC 18.1 k/uL (3.8-10.6)
--- NOTE | 2019-12-09 07:22 | P.PN ---
Subjective Progress Note Date: 12/09/19 Principal diagnosis: An AICD shocks This is a 69-year-old gentleman was coronary artery disease and prior coronary artery revascularization as well as severe ischemic cardiomyopathy as well as a status post AICD who was admitted to the hospital with AICD shocks. The device was interrogated and revealed appropriate shocks. The patient was seen today December 082019. He is feeling better interventional shortness of breath and denies any symptoms of chest pain or chest discomfort. Hemodynamically he is hypotensive with a systolic pressure in the 80s and 90s millimeters mercury going to stop the lisinopril and DC the Lasix IV and start the patient on Lasix by mouth. His urine output has been within normal limits. Continue the amiodarone by mouth. Continue following up with the patient. Objective - Vital Signs Vital signs: Vital Signs Temp 98.0 F 12/09/19 04:00 Pulse 61 12/09/19 05:00 Resp 18 12/09/19 05:00 BP 70/53 12/09/19 05:00 Pulse Ox 98 12/09/19 05:00 Intake & Output 12/08/19 12/09/19 12/09/19 18:59 06:59 18:59 Intake Total 650 240 Output Total 1631 575 Balance -981 -335 Weight 74.6 kg Intake: IV 170 240 Sodium Chloride 0.9% 1, 170 240 000 ml @ 20 mls/hr IV . Q24H [facility] Rx#:[id number] Oral 480 Output: Drainage 900 Right Chest 900 Urine 730 575 Stool 1 Other: Voiding Method Indwelling Catheter Indwelling Catheter # Bowel Movements 1 - Constitutional General appearance: Present: no acute distress - Respiratory Respiratory: bilateral: diminished - Cardiovascular Rhythm: irregularly irregular Heart sounds: normal: S1, S2 - Labs CBC & Chem 7: 12/09/19 06:29 12/08/19 06:40 Labs: Abnormal Lab Results - Last 24 Hours (Table) 12/08/19 12/08/19 12/08/19 Range/Units 06:40 06:40 10:20 WBC 20.0 H (3.8-10.6) k/uL Sodium 134 L (137-145) mmol/L BUN 31 H (9-20) mg/dL Glucose 129 H (74-99) mg/dL Urine Blood Large H (Negative) Ur Leukocyte Esterase Small H (Negative) Urine RBC 57 H (0-5) /hpf Urine Mucus Rare H (None) /hpf 12/09/19 Range/Units 06:29 WBC 18.1 H (3.8-10.6) k/uL Sodium (137-145) mmol/L BUN (9-20) mg/dL Glucose (74-99) mg/dL Urine Blood (Negative) Ur Leukocyte Esterase (Negative) Urine RBC (0-5) /hpf Urine Mucus (None) /hpf Microbiology - Last 24 Hours (Table) 12/05/19 22:50 Blood Culture - Preliminary Blood No Growth after 72 hours 12/08/19 10:00 Gram Stain - Preliminary Pleural Fluid Body Fluid Culture - Preliminary Assessment and Plan Assessment: Assessment #1 status post an AICD shocks #2 known severe cardiomyopathy #3 known coronary artery disease with prior revascularization #4 atrial fibrillation with RVR and the patient converted to normal sinus mechanism #5 heart failure with reduced ejection fraction exacerbation Plan #1 continue the current medical regimen including amiodarone by mouth #2 stop the lisinopril in view of the low blood pressure #3 DC Lasix IV and start the patient on Lasix by mouth #4 continue monitor the kidney function and electrolytes #5 follow-up with the patient #6 the patient can be transferred out of the ICU
[2019-12-09] MEDS: ASPIRIN 325 MG TAB PO SCH (08:49)
[2019-12-09] MEDS: METOPROLOL TARTRATE 50 MG TAB PO SCH ×2 (08:49→21:13)
[2019-12-09] MEDS: AMIODARONE 200 MG TAB PO SCH ×2 (08:49→21:13)
[2019-12-09] MEDS: FUROSEMIDE 20 MG TAB PO SCH ×2 (08:49→13:38)
--- NOTE | 2019-12-09 09:04 | P.PN ---
Subjective patient is seen in follow-up for acute kidney injury. Creatinine 1.2 as of yesterday. Underwent thoracentesis on December 07 1900 mL drained. Dyspnea improved. Oral intake fair. Nonoliguric. No active chest pain or shortness of breath. blood pressure low overnight and currently in the systolic 80s. Vital signs are stable. General: The patient appeared well nourished and normally developed. HEENT: Head exam is unremarkable. Neck is without jugular venous distension. LUNGS: Breath sounds decreased. HEART: Rate and Rhythm are regular. ABDOMEN: soft, nontender. EXTREMITITES: No clubbing, cyanosis, or edema. Objective - Vital Signs Vital signs: Vital Signs Temp 98.0 F 12/09/19 04:00 Pulse 79 12/09/19 08:00 Resp 12 12/09/19 08:00 BP 88/55 12/09/19 08:00 Pulse Ox 97 12/09/19 08:00 Intake & Output 12/08/19 12/09/19 12/09/19 18:59 06:59 18:59 Intake Total 650 240 220 Output Total 1631 575 150 Balance -981 -335 70 Weight 74.6 kg Intake: IV 170 240 20 Sodium Chloride 0.9% 1, 170 240 20 000 ml @ 20 mls/hr IV . Q24H [facility] Rx#:[id number] Oral 480 200 Output: Drainage 900 Right Chest 900 Urine 730 575 150 Stool 1 Other: Voiding Method Indwelling Catheter Indwelling Catheter # Bowel Movements 1 1 - Labs CBC & Chem 7: 12/09/19 06:29 12/08/19 06:40 Labs: Abnormal Lab Results - Last 24 Hours (Table) 12/08/19 12/09/19 Range/Units 10:20 06:29 WBC 18.1 H (3.8-10.6) k/uL Urine Blood Large H (Negative) Ur Leukocyte Esterase Small H (Negative) Urine RBC 57 H (0-5) /hpf Urine Mucus Rare H (None) /hpf Microbiology - Last 24 Hours (Table) 12/05/19 22:50 Blood Culture - Preliminary Blood No Growth after 72 hours 12/08/19 10:00 Gram Stain - Preliminary Pleural Fluid Body Fluid Culture - Preliminary Assessment and Plan Plan: assessment: 1. Acute kidney injury mostly prerenal secondary to hemodynamic stability and cardiorenal syndrome. creatinine peaked at 1.79 on December 06 and was 1.2 is of yesterday. No proteinuria on UA. 2. A. fib with RVR maintained on amiodarone and Lopressor. Also on anticoagulation. 3. Acute on chronic systolic CHF with ejection fraction of 30-35% with moderate tricuspid regurgitation and pulmonary hypertension. 4. Volume overload with bilateral pleural effusions. status post thoracentesis on December 07 1900 mL drained. 5. Coronary artery disease. Patient states he has 5 stents. 6. Benign hypertension. blood pressure in the lower side. Plan: maintain Lasix 20 mg orally twice daily. Lisinopril discontinued. add midodrine 5 mg 3 times daily as needed for systolic blood pressure less than 90. Encourage oral intake. Continue to monitor renal function and urine output.
[2019-12-09 09:25] LABS: Calcium 8.3 mg/dL (8.4-10.2); Potassium 4.1 mmol/L (3.5-5.1)
[2019-12-09] MEDS: MIDODRINE 5 MG TAB PO SCH ×2 (12:54→16:36)
--- NOTE | 2019-12-09 13:32 | P.PN ---
Subjective Progress Note Date: 12/09/19 Principal diagnosis: Acute hypoxic respiratory failure secondary to acute pulmonary edema secondary to chronic systolic dysfunction. This 69-year-old male patient has CAD with multivessel disease and multiple stents placed in the past, in addition to history of ischemic cardiomyopathy and the patient has an AICD in place. The patient has had previous VT ablation. He has also approximately atrial fibrillation. The patient was driving yesterday when he had his ileostomy discharge and this happened twice and the second one a few minutes later after the first shock. The patient denies having any chest pain. He was having progressive increased shortness of breath over the past 2 weeks. He was brought into the hospital. He was started on amiodarone drip and his current rhythm is A. fib. His chest x-ray showed pulmonary edema and there was increased infiltration of the right lung base more than the left. There was no evidence of any lung masses or tumors. There may be some small bilateral pleural effusions. The patient denies having any cough or sputum production. No hemoptysis. No pleurisy. White cell count of 14.6. Creatinine is at 1.05. The lactic acid level at 2.6. ProBNP level is 4250. The pro calcitonin level is still pending for now. The patient was given a dose of Rocephin and Zithromax in the ED. The patient has no focal neurological deficits. The patient has no chest pain. He has not required any pressors. Patient was reevaluated today on 12/07/19, patient remains in the ICU, presently on 6 L/m via nasal cannula, O2 saturations 97%. He was seen by cardiology, and his IV amiodarone was switched to oral amiodarone. Remains on Lasix for his pulmonary edema. Chest x-ray continues to show evidence of congestive heart failure. Underlying pneumonia is felt to be very unlikely. Patient is empirically on antibiotics, but he is mostly on diuretics, his WBC count is however elevated at 19.5, hemoglobin is 16.7. His electrolytes are normal renal functioning is a bit worse and I believe it is mostly cardiorenal his creatinine is 1.79 today. His BNP level was elevated over 4000, pro calcitonin is 0.05 Patient was reevaluated today on 12/08/19, remains in the ICU, he is on 6 L nasal cannula, O2 sats is 96%, remains in atrial fibrillation with a rate of 107. IV fluid is at KVO, chest x-ray this morning showed good sized right-sided pleural effusion and a ultrasound of the chest confirmed the finding. Proceeded to ri ght-sided thoracentesis, I was able to drain and had a cc of fluid from the right pleural space. Patient tolerated the procedure well. Although the ultrasound of the chest showed fluid on the left pleural space, the chest x-ray is not impressive for effusion on the left side. Hence I will not that the left side. Patient remains on diuretics, and he is in a negative balance. WBC count today is 20 hemoglobin is 15.4 lites are normal renal profile is improved BUN is 31 creatinine is 1.20 compared to 1.79 yesterday. Reevaluated today on 12/09/19, remains in the ICU, patient is feeling much be tter, breathing a lot easier, feels great, patient made a dramatic improvement since he had his right sided thoracentesis. Remains on oxygen at 6 L, O2 sats is 98%. His IV fluids at KVO. Remains in atrial fibrillation with controlled rate 73 per minute. Pleural effusion results are consistent with transudate, low protein and low LDH. His Lasix was switched to oral, and I have cleared him to be transferred to a monitor bed on selective if cleared by cardiology. His blood pressure medications are being adjusted mostly because of intermittently low blood pressure. Objective - Vital Signs Vital signs: Vital Signs Temp 98.0 F 12/09/19 04:00 Pulse 53 L 12/09/19 12:00 Resp 13 12/09/19 12:00 BP 74/51 12/09/19 12:00 Pulse Ox 97 12/09/19 12:00 Intake & Output 12/08/19 12/09/19 12/09/19 18:59 06:59 18:59 Intake Total 650 240 220 Output Total 1631 575 275 Balance -981 -335 -55 Weight 74.6 kg Intake: IV 170 240 20 Sodium Chloride 0.9% 1, 170 240 20 000 ml @ 20 mls/hr IV . Q24H [facility] Rx#:[id number] Oral 480 200 Output: Drainage 900 Right Chest 900 Urine 730 575 275 Stool 1 Other: Voiding Method Indwelling Catheter Indwelling Catheter Indwelling Catheter # Bowel Movements 1 1 - Exam GENERAL: Reveals 69-year-old white male in no distress. On nasal cannula. EYES: PERRLA, EOMI, no icterus HEENT: Neck supple no neck masses no JVD no stridor. NECK: JVD not raised; masses not palpable. HEART: Irregular irregular rhythm, normal S1 and S2, no S3 gallop. LUNGS: Symmetrical chest expansion, clear throughout no crackles or rhonchi or wheezes. ABDOMEN: Soft nontender no megaly no rebound no guarding. PSYCH: Normal mood, affect and normal mental status examination. NEUROLOGICAL: Alert and oriented 3 no gross focal neurologic deficits. LYMPHATICS: no cervical lymphadenopathy. skin: No rashes. - Labs CBC & Chem 7: 12/09/19 06:29 12/09/19 06:29 Labs: Abnormal Lab Results - Last 24 Hours (Table) 12/09/19 12/09/19 Range/Units 06:29 06:29 WBC 18.1 H (3.8-10.6) k/uL Sodium 133 L (137-145) mmol/L Chloride 97 L (98-107) mmol/L BUN 39 H (9-20) mg/dL Creatinine 1.62 H (0.66-1.25) mg/dL Glucose 137 H (74-99) mg/dL Calcium 8.3 L (8.4-10.2) mg/dL Microbiology - Last 24 Hours (Table) 12/08/19 10:00 Gram Stain - Preliminary Pleural Fluid Body Fluid Culture - Preliminary 12/05/19 22:50 Blood Culture - Preliminary Blood No Growth after 72 hours Assessment and Plan Assessment: Impression: Acute pulmonary edema secondary to systolic congestive heart failure Ischemic cardiomyopathy with previous AICD placement Acute discharge of AICD 2 History of multivessel coronary artery disease with previous MA and previous coronary stenting History of tachycardia requiring ablation. Dyslipidemia. Atrial fibrillation with RVR. Status post right sided thoracentesis on 12/08/19, 900 mL of fluid , transudative , hence cardiogenic in nature. Recommendation: Continue present treatment plan. Continue amiodarone. Chest the dose of his beta blockers and diuretics. IV fluid at KVO. Cardiology is following. Consider transferring the patient out of the ICU to a monitor bed on selective. Time with Patient: Less than 30
[2019-12-09] MEDS ORDERED: SODIUM CHLORIDE 0.9% 500 ML 500 ML IV ONE (13:34)
[2019-12-09] MEDS: RIVAROXABAN 20 MG TAB PO SCH (17:22)
[2019-12-09] MEDS ORDERED: SODIUM CHLORIDE 0.9% 500 ML 100 ML IV ONE (18:32)
--- NOTE | 2019-12-09 19:31 | P.PN ---
Progress Note - Text Progress Note Date: 12/09/19 Chief Complaint: AICD firing History of presenting complaint: This is a pleasant 69-year-old patient of Dr. Cheatham. Chronic stable medical conditions include coronary artery disease, hyperlipidemia, multiple MIs in the past, coronary stent, peptic ulcer disease, ischemic cardiomyopathy, previous V. tach ablation, atrial fibrillation,. Patient was driving home yesterday when he saw lights flashing and then his AICD kicked in twice. Presented to the ER. Admitted to the floor. Patient became short of breath. Had to be given Lasix and put on a BiPAP. Then transferred to the ICU. AICD interrogation did show V. tach. Patient put on IV amiodarone. This morning patient is feeling better. Daughter the bedside. Patient had been on eliquis previously. Because the co- pay was very high patient stopped taking it. Just last week he was started on Xarelto.Per cardiology and also had atrial fibrillation. Getting IV Lasix. Also had acute kidney injury likely prerenal and hepatorenal-better with IV Lasix. Right pleural effusion --900 cc of pleural fluid removed . Qcnhy-[id number]-[id number] picking up. Changed to by mouth Lasix. Lisinopril discontinued because of low blood pressure. Up in a chair. Review of systems: Was done for constitutional, cardiovascular, GI, pulmonary. relevant finding as above Active Medications Amiodarone HCl (Amiodarone 200 Mg Tab) 400 mg PO BID [facility] Last Admin: 12/09/19 08:49 Dose: 400 mg Documented by: Aspirin (Aspirin 325 Mg Tab) 325 mg PO DAILY [facility] Last Admin: 12/09/19 08:49 Dose: 325 mg Documented by: Atorvastatin Calcium (Atorvastatin 80 Mg Tab) 80 mg PO HS [facility] Last Admin: 12/08/19 21:20 Dose: 80 mg Documented by: Furosemide (Furosemide 20 Mg Tab) 20 mg PO BID@0900,1600 [facility] Last Admin: 12/09/19 13:38 Dose: Not Given Documented by: Sodium Chloride (Saline 0.9%) 1,000 mls @ 20 mls/hr IV .Q24H [facility] Last Admin: 12/09/19 00:39 Dose: 20 mls/hr Documented by: Piperacillin Sod/Tazobactam (Sod 3.375 gm/ Sodium Chloride) 100 mls @ 25 mls/hr IVPB Q12H [facility] Last Admin: 12/09/19 16:44 Dose: 25 mls/hr Documented by: Metoprolol Tartrate (Metoprolol Tartrate 50 Mg Tab) 50 mg PO BID [facility] Last Admin: 12/09/19 08:49 Dose: 50 mg Documented by: Midodrine (Midodrine 5 Mg Tab) 5 mg PO AC-TID [facility] Last Admin: 12/09/19 16:36 Dose: 5 mg Documented by: Naloxone HCl (Naloxone 0.4 Mg/Ml 1 Ml Vial) 0.2 mg IV Q2M PRN PRN Reason: Opioid Reversal Rivaroxaban (Rivaroxaban 20 Mg Tab) 20 mg PO W/SUPPER [facility] Last Admin: 12/09/19 17:22 Dose: 20 mg Documented by: Physical examination: VITAL SIGNS: 97.5, 64, 12, 102/57, 98% on 6 L GENERAL: propped up in bed, awake EYES: Pupils equal. Conjunctiva normal. NECK: JVD not raised; masses not palpable. HEART: heart sounds irregular; no edema. LUNGS: Respiratory rate increased, decreased breath sounds. ABDOMEN: Soft, nontender, liver spleen not palpable, no masses palpable. PSYCH: Alert and oriented x3; mood and affect normal. INVESTIGATIONS, reviewed in the clinical context: White count 18.1 hemoglobin 14.1 potassium 4.1 bun 39 creatinine 1.6 to Previous testing White count 7.3 hemoglobin 17.1 INR 1.8 potassium 3.9 creatinine 1.17 Lactic acid 2. 6 repeat 2.4 Troponin I 0.035, 0.047 EKG tracing personally reviewed by ce-djdh-vyunyxp tachycardia Chest x-ray film personally reviewed by me-pulmonary edema 2-D echocardiogram-EF 30-35%. Wall motion abnormalities. Moderate TR, Chest x-ray film-personally reviewed by me-right pleural effusion Assessment: -AICD firing 2, underlying rhythm of ventricular tachycardia -Coronary artery disease with prior history of stents -Acute congestive heart failure exacerbation from systolic dysfunction EF 30-35%- initially requiring BiPAP -Acute hypoxic respiratory failure from pulmonary edema, POA -Moderate tricuspid regurgitation -Hyperlipidemia -Persistent atrial fibrillation/flutter -Chronic nicotine dependence patient active cigarette smoker -Acute kidney injury likely prerenal from diuretics and hepatorenal-new diagnosis-responding to IV Lasix -Right pleural effusion-status post thoracentesis-900 mL removed Plan: Patient change her to by mouth Lasix. Remains on IV Zosyn. Lisinopril discontinued. Oral amiodarone. Follow blood pressure closely.
[2019-12-09] MEDS: ATORVASTATIN 80 MG TAB PO SCH (21:13)
[2019-12-10] MEDS: PIPERACILLIN-TAZOBACTAM 3.375 GM in SODIUM CHLORIDE 0.9% 100 ML IVPB SCH ×2 (05:17→16:30)
[2019-12-10] MEDS: MIDODRINE 5 MG TAB PO SCH ×3 (06:40→16:32)
--- NOTE | 2019-12-10 07:45 | P.PN ---
Subjective Progress Note Date: 12/10/19 Principal diagnosis: An AICD shocks This is a 69-year-old gentleman was coronary artery disease and prior coronary artery revascularization as well as severe ischemic cardiomyopathy as well as a status post AICD who was admitted to the hospital with AICD shocks. The device was interrogated and revealed appropriate shocks. The patient was seen today 12/10/2019. He denies any symptoms of chest pain or chest discomfort but he feels nauseated. Hemodynamically he is having marginal blood pressure. I am going to decrease the dose of metoprolol. Yesterday I stopped the lesser hold. Also yesterday we stopped the IV Lasix and started him on by mouth Lasix. He is on Mobitto to support the blood pressure. I asked the patient to get up and around. Hopefully the patient will be discharged home in the next 24 hours. He continues to be on oral anticoagulation. He is in atrial fibrillation was overall controlled heart rate. Objective - Vital Signs Vital signs: Vital Signs Temp 98.0 F 12/10/19 04:00 Pulse 81 12/10/19 04:00 Resp 26 H 12/10/19 04:00 BP 83/62 12/10/19 04:00 Pulse Ox 96 12/10/19 04:00 Intake & Output 12/09/19 12/10/19 12/10/19 18:59 06:59 18:59 Intake Total 1300 380 Output Total 295 460 Balance 1005 -80 Intake: IV 700 280 Sodium Chloride 0.9% 1, 200 280 000 ml @ 20 mls/hr IV . Q24H [facility] Rx#:[id number] Sodium Chloride 0.9% 500 500 ml 500 ml @ 999 mls/hr IV .Q31M [facility] Rx#:[id number] Intake, IV Titration 100 Amount Piperacillin-Tazobactam 3 100 .375 gm In Sodium Chloride 0.9% 100 ml @ 25 mls/hr IVPB Q12H [facility] Rx# :[id number] Oral 500 100 Output: Urine 295 460 Other: Voiding Method Indwelling Catheter Indwelling Catheter # Bowel Movements 1 - Constitutional General appearance: Present: no acute distress - Respiratory Respiratory: bilateral: diminished - Cardiovascular Rhythm: irregularly irregular Heart sounds: normal: S1, S2 - Labs CBC & Chem 7: 12/09/19 06:29 12/09/19 06:29 Labs: Abnormal Lab Results - Last 24 Hours (Table) 12/09/19 Range/Units 06:29 Sodium 133 L (137-145) mmol/L Chloride 97 L (98-107) mmol/L BUN 39 H (9-20) mg/dL Creatinine 1.62 H (0.66-1.25) mg/dL Glucose 137 H (74-99) mg/dL Calcium 8.3 L (8.4-10.2) mg/dL Microbiology - Last 24 Hours (Table) 12/05/19 22:50 Blood Culture - Preliminary Blood No Growth after 96 hours 12/08/19 10:00 Gram Stain - Preliminary Pleural Fluid Body Fluid Culture - Preliminary Assessment and Plan Assessment: Assessment #1 status post an AICD shocks #2 known severe cardiomyopathy #3 known coronary artery disease with prior revascularization #4 atrial fibrillation with RVR and the patient converted to normal sinus mechanism #5 heart failure with reduced ejection fraction exacerbation Plan #1 continue the current medical regimen #2 decrease the dose of metoprolol #3 continue holding the lisinopril at this point #4 continue amiodarone #5 continue oral anticoagulation #6 follow-up with the patient
[2019-12-10 08:03] LABS: Calcium 8.2 mg/dL (8.4-10.2)
[2019-12-10 08:18] LABS: Magnesium 4.1 mg/dL (1.6-2.3)
[2019-12-10] MEDS: METOPROLOL TARTRATE 25 MG TAB PO SCH ×2 (08:20→20:47)
[2019-12-10] MEDS: ASPIRIN 325 MG TAB PO SCH (08:20)
[2019-12-10] MEDS: AMIODARONE 200 MG TAB PO SCH ×2 (08:20→20:47)
[2019-12-10] MEDS: FUROSEMIDE 20 MG TAB PO SCH ×2 (08:20→16:31)
--- NOTE | 2019-12-10 09:51 | XR ---
EXAMINATION TYPE: XR chest 1V portable DATE OF EXAM: 12/10/2019 COMPARISON: Prior chest x-ray 12/08/2019 HISTORY: Pleural effusion TECHNIQUE: Single frontal view of the chest is obtained. FINDINGS: Generators present in the left pectoral region and left flank as on prior, there are leads overlying the heart and within the right atrium. Biapical pleural thickening is stable. Persistent b lunting of the right gastric angle is noted. Bibasilar increased density is present. No pneumothorax. Interstitium is mildly increased. Heart size is likely stable accounting for differences in techniqu e. IMPRESSION: Findings are similar to prior exam. Suspect basilar effusions and associated atelectasis versus edema, pneumonia not excluded, correlate for volume overload
--- NOTE | 2019-12-10 11:32 | P.PN ---
Subjective patient is seen in follow-up for acute kidney injury. renal function stable. Underwent thoracentesis on December 07 1900 mL drained. Dyspnea improved. Oral intake poor. blood pressure remains low in the systolic 80s to 90s. Midodrine was added this morning. Metoprolol was decreased. Vital signs are stable. General: The patient appeared well nourished and normally developed. HEENT: Head exam is unremarkable. Neck is without jugular venous distension. LUNGS: Breath sounds decreased. HEART: Rate and Rhythm are regular. ABDOMEN: soft, nontender. EXTREMITITES: No clubbing, cyanosis, or edema. Objective - Vital Signs Vital signs: Vital Signs Temp 97.8 F 12/10/19 11:19 Pulse 64 12/10/19 11:20 Resp 15 12/10/19 11:20 BP 90/60 12/10/19 11:19 Pulse Ox 97 12/10/19 11:19 Intake & Output 12/09/19 12/10/19 12/10/19 18:59 06:59 18:59 Intake Total 1300 380 20 Output Total 295 460 140 Balance 1005 -80 -120 Intake: IV 700 280 20 Sodium Chloride 0.9% 1, 200 280 20 000 ml @ 20 mls/hr IV . Q24H [facility] Rx#:[id number] Sodium Chloride 0.9% 500 500 ml 500 ml @ 999 mls/hr IV .Q31M [facility] Rx#:[id number] Intake, IV Titration 100 Amount Piperacillin-Tazobactam 3 100 .375 gm In Sodium Chloride 0.9% 100 ml @ 25 mls/hr IVPB Q12H [facility] Rx# :[id number] Oral 500 100 Output: Urine 295 460 140 Other: Voiding Method Indwelling Catheter Indwelling Catheter Indwelling Catheter # Bowel Movements 1 - Labs CBC & Chem 7: 12/09/19 06:29 12/10/19 06:50 Labs: Abnormal Lab Results - Last 24 Hours (Table) 12/10/19 Range/Units 06:50 Sodium 133 L (137-145) mmol/L BUN 39 H (9-20) mg/dL Creatinine 1.56 H (0.66-1.25) mg/dL Glucose 145 H (74-99) mg/dL Calcium 8.2 L (8.4-10.2) mg/dL Magnesium 4.1 H (1.6-2.3) mg/dL Microbiology - Last 24 Hours (Table) 12/05/19 22:50 Blood Culture - Preliminary Blood No Growth after 96 hours 12/08/19 10:00 Gram Stain - Preliminary Pleural Fluid Body Fluid Culture - Preliminary Assessment and Plan Plan: assessment: 1. Acute kidney injury mostly prerenal secondary to hemodynamic stability and cardiorenal syndrome. creatinine peaked at 1.79 on December 06 and is 1.56 today. No proteinuria on UA. 2. A. fib with RVR maintained on amiodarone and Lopressor. Also on anticoagulation. 3. Acute on chronic systolic CHF with ejection fraction of 30-35% with moderate tricuspid regurgitation and pulmonary hypertension. 4. Volume overload with bilateral pleural effusions. status post thoracentesis on December 07 1900 mL drained. 5. Coronary artery disease. Patient states he has 5 stents. 6. Benign hypertension. blood pressure in the lower side. Plan: maintain Lasix 20 mg orally twice daily. Lisinopril discontinued. maintain midodrine. Encourage oral intake. Continue to monitor renal function and urine output. if remains hypotensive or becomes oliguric, will start dobutamine.
--- NOTE | 2019-12-10 13:59 | P.PN ---
Subjective Progress Note Date: 12/10/19 Principal diagnosis: Acute hypoxic respiratory failure secondary to acute pulmonary edema secondary to chronic systolic dysfunction. This 69-year-old male patient has CAD with multivessel disease and multiple stents placed in the past, in addition to history of ischemic cardiomyopathy and the patient has an AICD in place. The patient has had previous VT ablation. He has also approximately atrial fibrillation. The patient was driving yesterday when he had his ileostomy discharge and this happened twice and the second one a few minutes later after the first shock. The patient denies having any chest pain. He was having progressive increased shortness of breath over the past 2 weeks. He was brought into the hospital. He was started on amiodarone drip and his current rhythm is A. fib. His chest x-ray showed pulmonary edema and there was increased infiltration of the right lung base more than the left. There was no evidence of any lung masses or tumors. There may be some small bilateral pleural effusions. The patient denies having any cough or sputum production. No hemoptysis. No pleurisy. White cell count of 14.6. Creatinine is at 1.05. The lactic acid level at 2.6. ProBNP level is 4250. The pro calcitonin level is still pending for now. The patient was given a dose of Rocephin and Zithromax in the ED. The patient has no focal neurological deficits. The patient has no chest pain. He has not required any pressors. Patient was reevaluated today on 12/07/19, patient remains in the ICU, presently on 6 L/m via nasal cannula, O2 saturations 97%. He was seen by cardiology, and his IV amiodarone was switched to oral amiodarone. Remains on Lasix for his pulmonary edema. Chest x-ray continues to show evidence of congestive heart failure. Underlying pneumonia is felt to be very unlikely. Patient is empirically on antibiotics, but he is mostly on diuretics, his WBC count is however elevated at 19.5, hemoglobin is 16.7. His electrolytes are normal renal functioning is a bit worse and I believe it is mostly cardiorenal his creatinine is 1.79 today. His BNP level was elevated over 4000, pro calcitonin is 0.05 Patient was reevaluated today on 12/08/19, remains in the ICU, he is on 6 L nasal cannula, O2 sats is 96%, remains in atrial fibrillation with a rate of 107. IV fluid is at KVO, chest x-ray this morning showed good sized right-sided pleural effusion and a ultrasound of the chest confirmed the finding. Proceeded to ri ght-sided thoracentesis, I was able to drain and had a cc of fluid from the right pleural space. Patient tolerated the procedure well. Although the ultrasound of the chest showed fluid on the left pleural space, the chest x-ray is not impressive for effusion on the left side. Hence I will not that the left side. Patient remains on diuretics, and he is in a negative balance. WBC count today is 20 hemoglobin is 15.4 lites are normal renal profile is improved BUN is 31 creatinine is 1.20 compared to 1.79 yesterday. Reevaluated today on 12/09/19, remains in the ICU, patient is feeling much be tter, breathing a lot easier, feels great, patient made a dramatic improvement since he had his right sided thoracentesis. Remains on oxygen at 6 L, O2 sats is 98%. His IV fluids at KVO. Remains in atrial fibrillation with controlled rate 73 per minute. Pleural effusion results are consistent with transudate, low protein and low LDH. His Lasix was switched to oral, and I have cleared him to be transferred to a monitor bed on selective if cleared by cardiology. His blood pressure medications are being adjusted mostly because of intermittently low blood pressure. Reevaluated today on 12/10/19, remains in the ICU as an overflow. Denies chest pain, denies any shortness of breath, his urine output is marginal, remains on Lasix, he is now on oral Lasix. Blood pressure is requiring midodrine, his atrial fibrillation seems to be under control. Patient remains marginal at best. Renal functioning is poor with BUN of 39 creatinine 1.56. WBC count is 18.1 hemoglobin is 14.1 patient remains empirically on antibiotics. The pleural effusion was definitely transudative/cardiogenic in nature Objective - Vital Signs Vital signs: Vital Signs Temp 97.8 F 12/10/19 11:19 Pulse 64 12/10/19 11:20 Resp 15 12/10/19 11:20 BP 90/60 12/10/19 11:19 Pulse Ox 97 12/10/19 11:19 Intake & Output 12/09/19 12/10/19 12/10/19 18:59 06:59 18:59 Intake Total 1300 380 20 Output Total 295 460 265 Balance 1005 -80 -245 Intake: IV 700 280 20 Sodium Chloride 0.9% 1, 200 280 20 000 ml @ 20 mls/hr IV . Q24H [facility] Rx#:[id number] Sodium Chloride 0.9% 500 500 ml 500 ml @ 999 mls/hr IV .Q31M [facility] Rx#:[id number] Intake, IV Titration 100 Amount Piperacillin-Tazobactam 3 100 .375 gm In Sodium Chloride 0.9% 100 ml @ 25 mls/hr IVPB Q12H [facility] Rx# :[id number] Oral 500 100 Output: Urine 295 460 265 Other: Voiding Method Indwelling Catheter Indwelling Catheter Indwelling Catheter # Bowel Movements 1 - Exam GENERAL: Reveals 69-year-old white male in no distress. On nasal cannula. EYES: PERRLA, EOMI, no icterus HEENT: Neck supple no neck masses no JVD no stridor. NECK: JVD not raised; masses not palpable. HEART: Irregular irregular rhythm, normal S1 and S2, no S3 gallop. LUNGS: Symmetrical chest expansion, clear throughout no crackles or rhonchi or wheezes. ABDOMEN: Soft nontender no megaly no rebound no guarding. PSYCH: Normal mood, affect and normal mental status examination. NEUROLOGICAL: Alert and oriented 3 no gross focal neurologic deficits. LYMPHATICS: no cervical lymphadenopathy. skin: No rashes. - Labs CBC & Chem 7: 12/09/19 06:29 12/10/19 06:50 Labs: Abnormal Lab Results - Last 24 Hours (Table) 12/10/19 Range/Units 06:50 Sodium 133 L (137-145) mmol/L BUN 39 H (9-20) mg/dL Creatinine 1.56 H (0.66-1.25) mg/dL Glucose 145 H (74-99) mg/dL Calcium 8.2 L (8.4-10.2) mg/dL Magnesium 4.1 H (1.6-2.3) mg/dL Microbiology - Last 24 Hours (Table) 12/08/19 10:00 Gram Stain - Preliminary Pleural Fluid Body Fluid Culture - Preliminary 12/05/19 22:50 Blood Culture - Preliminary Blood No Growth after 96 hours Assessment and Plan Assessment: Impression: Acute pulmonary edema secondary to systolic congestive heart failure Ischemic cardiomyopathy with previous AICD placement Acute discharge of AICD 2 History of multivessel coronary artery disease with previous IN and previous coronary stenting History of tachycardia requiring ablation. Dyslipidemia. Atrial fibrillation with RVR. Status post right sided thoracentesis on 12/08/19, 900 mL of fluid , transudative , hence cardiogenic in nature. Recommendation: Continue diuretics Continue amiodarone. Continue beta blockers IV fluid at KVO. Consider transferring the patient out of the ICU to a monitor bed on selective. Long-term prognosis remains poor and guarded Time with Patient: Less than 30
--- NOTE | 2019-12-10 16:07 | P.PN ---
Progress Note - Text Progress Note Date: 12/10/19 Chief Complaint: AICD firing History of presenting complaint: This is a pleasant 69-year-old patient of Dr. Cheatham. Chronic stable medical conditions include coronary artery disease, hyperlipidemia, multiple MIs in the past, coronary stent, peptic ulcer disease, ischemic cardiomyopathy, previous V. tach ablation, atrial fibrillation,. Patient was driving home yesterday when he saw lights flashing and then his AICD kicked in twice. Presented to the ER. Admitted to the floor. Patient became short of breath. Had to be given Lasix and put on a BiPAP. Then transferred to the ICU. AICD interrogation did show V. tach. Patient put on IV amiodarone. This morning patient is feeling better. Daughter the bedside. Patient had been on eliquis previously. Because the co- pay was very high patient stopped taking it. Just last week he was started on Xarelto.Per cardiology and also had atrial fibrillation. Getting IV Lasix. Also had acute kidney injury likely prerenal and hepatorenal-better with IV Lasix. Right pleural effusion --900 cc of pleural fluid removed . [id number] still down. Remains in A. fib flutter. Tired. Review of systems: Was done for constitutional, cardiovascular, GI, pulmonary. relevant finding as above Active Medications Amiodarone HCl (Amiodarone 200 Mg Tab) 400 mg PO BID [facility] Last Admin: 12/10/19 08:20 Dose: 400 mg Documented by: Aspirin (Aspirin 325 Mg Tab) 325 mg PO DAILY [facility] Last Admin: 12/10/19 08:20 Dose: 325 mg Documented by: Atorvastatin Calcium (Atorvastatin 80 Mg Tab) 80 mg PO HS [facility] Last Admin: 12/09/19 21:13 Dose: 80 mg Documented by: Furosemide (Furosemide 20 Mg Tab) 20 mg PO BID@0900,1600 [facility] Last Admin: 12/10/19 08:20 Dose: 20 mg Documented by: Sodium Chloride (Saline 0.9%) 1,000 mls @ 20 mls/hr IV .Q24H [facility] Last Admin: 12/09/19 21:13 Dose: 20 mls/hr Documented by: Piperacillin Sod/Tazobactam (Sod 3.375 gm/ Sodium Chloride) 100 mls @ 25 mls/hr IVPB Q12H [facility] Last Admin: 12/10/19 05:17 Dose: 25 mls/hr Documented by: Metoprolol Tartrate (Metoprolol Tartrate 25 Mg Tab) 25 mg PO BID [facility] Last Admin: 12/10/19 08:20 Dose: 25 mg Documented by: Midodrine (Midodrine 5 Mg Tab) 5 mg PO AC-TID [facility] Last Admin: 12/10/19 12:05 Dose: 5 mg Documented by: Naloxone HCl (Naloxone 0.4 Mg/Ml 1 Ml Vial) 0.2 mg IV Q2M PRN PRN Reason: Opioid Reversal Nystatin (Nystatin 100,000 Unit/Ml Susp 500,000 Unit/5 Ml Cup) 500,000 unit PO QID [facility] Rivaroxaban (Rivaroxaban 20 Mg Tab) 20 mg PO W/SUPPER [facility] Last Admin: 12/09/19 17:22 Dose: 20 mg Documented by: Physical examination: VITAL SIGNS: 97.8, 64, 15, 90/60, 97% on 4 L GENERAL: propped up in bed, awake ORAL cavity: White patches EYES: Pupils equal. Conjunctiva normal. NECK: JVD not raised; masses not palpable. HEART: heart sounds irregular; no edema. LUNGS: Respiratory rate increased, decreased breath sounds. ABDOMEN: Soft, nontender, liver spleen not palpable, no masses palpable. PSYCH: Alert and oriented x3; mood and affect normal. INVESTIGATIONS, reviewed in the clinical context: Potassium 4 bun 39 creatinine 1.56 Previous testing White count 7.3 hemoglobin 17.1 INR 1.8 potassium 3. creatinine 1.17 Lactic acid 2. 6 repeat 2.4 Troponin I 0.035, 0.047 EKG tracing personally reviewed by qh-okly-fgpdoph tachycardia Chest x-ray film personally reviewed by me-pulmonary edema 2-D echocardiogram-EF 30-35%. Wall motion abnormalities. Moderate TR, Chest x-ray film-personally reviewed by me-right pleural effusion Assessment: -AICD firing 2, underlying rhythm of ventricular tachycardia -Coronary artery disease with prior history of stents -Acute congestive heart failure exacerbation from systolic dysfunction EF 30-35%- initially requiring BiPAP -Acute hypoxic respiratory failure from pulmonary edema, POA -Moderate tricuspid regurgitation -Hyperlipidemia -Persistent atrial fibrillation/flutter -Chronic nicotine dependence patient active cigarette smoker -Acute kidney injury likely prerenal from diuretics and hepatorenal-new diagnosis-responding to IV Lasix -Right pleural effusion-status post thoracentesis-900 mL removed -Oral candidiasis Plan: add Diflucan. Nystatin oral treatment. Spoke to the patient to increase his oral intake.. Metoprolol dose decreased by cardiology. Discussed with the patient.
[2019-12-10] MEDS ORDERED: FLUCONAZOLE 100 MG TAB PO ONE (16:08)
[2019-12-10] MEDS: RIVAROXABAN 20 MG TAB PO SCH (16:32)
[2019-12-10] MEDS: NYSTATIN 100,000 UNIT/ML SUSP 500,000 UNIT/5 ML CUP PO SCH ×2 (17:01→20:48)
[2019-12-10] MEDS: ATORVASTATIN 80 MG TAB PO SCH (20:47)
[2019-12-10] MEDS: SODIUM CHLORIDE 0.9% 1,000 ML IV SCH (20:48)
[2019-12-11] MEDS: PIPERACILLIN-TAZOBACTAM 3.375 GM in SODIUM CHLORIDE 0.9% 100 ML IVPB SCH ×2 (05:08→17:58)
[2019-12-11] MEDS: MIDODRINE 5 MG TAB PO SCH ×3 (06:17→17:03)
[2019-12-11] MEDS: ASPIRIN 325 MG TAB PO SCH (08:24)
[2019-12-11] MEDS: AMIODARONE 200 MG TAB PO SCH ×2 (08:24→20:01)
[2019-12-11] MEDS: METOPROLOL TARTRATE 25 MG TAB PO SCH ×2 (08:24→20:00)
[2019-12-11] MEDS: FLUCONAZOLE 100 MG TAB PO SCH (08:24)
[2019-12-11] MEDS: FUROSEMIDE 20 MG TAB PO SCH ×2 (08:24→15:07)
[2019-12-11] MEDS: NYSTATIN 100,000 UNIT/ML SUSP 500,000 UNIT/5 ML CUP PO SCH ×4 (08:24→20:37)
--- NOTE | 2019-12-11 11:02 | P.PN ---
Subjective patient is seen in follow-up for acute kidney injury. renal function stable. Underwent thoracentesis on December 07 1900 mL drained. Dyspnea improved. Oral intake poor. blood pressure better with Midodrine. good urine output. No chest pain or shortness of breath. Vital signs are stable. General: The patient appeared well nourished and normally developed. HEENT: Head exam is unremarkable. Neck is without jugular venous distension. LUNGS: Breath sounds decreased. HEART: Rate and Rhythm are regular. ABDOMEN: soft, nontender. EXTREMITITES: No clubbing, cyanosis, or edema. Objective - Vital Signs Vital signs: Vital Signs Temp 98 F 12/11/19 08:00 Pulse 83 12/11/19 08:00 Resp 16 12/11/19 08:00 BP 120/69 12/11/19 08:00 Pulse Ox 98 12/11/19 08:00 Intake & Output 12/10/19 12/11/19 12/11/19 18:59 06:59 18:59 Intake Total 40 160 300 Output Total 390 450 Balance -350 -290 300 Weight 75.2 kg Intake: IV 40 160 Sodium Chloride 0.9% 1, 40 160 000 ml @ 20 mls/hr IV . Q24H [facility] Rx#:[id number] Oral 300 Output: Urine 390 450 Other: Voiding Method Indwelling Catheter Urinal Urinal - Labs CBC & Chem 7: 12/09/19 06:29 12/10/19 06:50 Labs: Microbiology - Last 24 Hours (Table) 12/05/19 22:50 Blood Culture - Preliminary Blood No Growth after 120 hours 12/08/19 10:00 Gram Stain - Preliminary Pleural Fluid Body Fluid Culture - Preliminary Assessment and Plan Plan: assessment: 1. Acute kidney injury mostly prerenal secondary to hemodynamic stability and cardiorenal syndrome. creatinine peaked at 1.79 on December 06 and Was 1.56 as of yesterday. No proteinuria on UA. 2. A. fib with RVR maintained on amiodarone and Lopressor. Also on anti coagulation. 3. Acute on chronic systolic CHF with ejection fraction of 30-35% with moderate tricuspid regurgitation and pulmonary hypertension. 4. Volume overload with bilateral pleural effusions. status post thoracentesis on December 07 1900 mL drained. 5. Coronary artery disease. Patient states he has 5 stents. 6. Benign hypertension. blood pressure has been low but improved with midodrin e. Plan: maintain Lasix 20 mg orally twice daily. maintain midodrine. Encouraged oral intake. Continue to monitor renal function and urine output.
[2019-12-11] MEDS ORDERED: ONDANSETRON 4 MG/2 ML VIAL IVP PRN (11:06)
[2019-12-11 11:56] LABS: Glucose,Whole Blood 187 mg/dL (75-99)
[2019-12-11] MEDS ORDERED: SCOPOLAMINE 1.5MG/72HR PATCH TRANSDERM STA (12:32)
--- NOTE | 2019-12-11 12:42 | P.PN ---
Subjective Progress Note Date: 12/11/19 Principal diagnosis: Acute hypoxic respiratory failure secondary to acute pulmonary edema, secondary to chronic systolic dysfunction This 69-year-old male patient has CAD with multivessel disease and multiple stents placed in the past, in addition to history of ischemic cardiomyopathy and the patient has an AICD in place. The patient has had previous VT ablation. He has also approximately atrial fibrillation. The patient was driving yesterday when he had his ileostomy discharge and this happened twice and the second one a few minutes later after the first shock. The patient denies having any chest pain. He was having progressive increased shortness of breath over the past 2 weeks. He was brought into the hospital. He was started on amiodarone drip and his current rhythm is A. fib. His chest x-ray showed pulmonary edema and there was increased infiltration of the right lung base more than the left. There was no evidence of any lung masses or tumors. There may be some small bilateral pleural effusions. The patient denies having any cough or sputum production. No hemoptysis. No pleurisy. White cell count of 14.6. Creatinine is at 1.05. The lactic acid level at 2.6. ProBNP level is 4250. The pro calcitonin level is still pending for now. The patient was given a dose of Rocephin and Zithromax in the ED. The patient has no focal neurological deficits. The patient has no chest pain. He has not required any pressors. Patient was reevaluated today on 12/07/19, patient remains in the ICU, presently on 6 L/m via nasal cannula, O2 saturations 97%. He was seen by cardiology, and his IV amiodarone was switched to oral amiodarone. Remains on Lasix for his pulmonary edema. Chest x-ray continues to show evidence of congestive heart failure. Underlying pneumonia is felt to be very unlikely. Patient is empirically on antibiotics, but he is mostly on diuretics, his WBC count is however elevated at 19.5, hemoglobin is 16.7. His electrolytes are normal renal functioning is a bit worse and I believe it is mostly cardiorenal his creatinine is 1.79 today. His BNP level was elevated over 4000, pro calcitonin is 0.05 Patient was reevaluated today on 12/08/19, remains in the ICU, he is on 6 L nasal cannula, O2 sats is 96%, remains in atrial fibrillation with a rate of 107. IV fluid is at KVO, chest x-ray this morning showed good sized right-sided pleural effusion and a ultrasound of the chest confirmed the finding. Proceeded to ri ght-sided thoracentesis, I was able to drain and had a cc of fluid from the right pleural space. Patient tolerated the procedure well. Although the ultrasound of the chest showed fluid on the left pleural space, the chest x-ray is not impressive for effusion on the left side. Hence I will not that the left side. Patient remains on diuretics, and he is in a negative balance. WBC count today is 20 hemoglobin is 15.4 lites are normal renal profile is improved BUN is 31 creatinine is 1.20 compared to 1.79 yesterday. Reevaluated today on 12/09/19, remains in the ICU, patient is feeling much be tter, breathing a lot easier, feels great, patient made a dramatic improvement since he had his right sided thoracentesis. Remains on oxygen at 6 L, O2 sats is 98%. His IV fluids at KVO. Remains in atrial fibrillation with controlled rate 73 per minute. Pleural effusion results are consistent with transudate, low protein and low LDH. His Lasix was switched to oral, and I have cleared him to be transferred to a monitor bed on selective if cleared by cardiology. His blood pressure medications are being adjusted mostly because of intermittently low blood pressure. Reevaluated today on 12/10/19, remains in the ICU as an overflow. Denies chest pain, denies any shortness of breath, his urine output is marginal, remains on Lasix, he is now on oral Lasix. Blood pressure is requiring midodrine, his atrial fibrillation seems to be under control. Patient remains marginal at best. Renal functioning is poor with BUN of 39 creatinine 1.56. WBC count is 18.1 hemoglobin is 14.1 patient remains empirically on antibiotics. The pleural effusion was definitely transudative/cardiogenic in nature 12/11/2019 patient is seen in follow-up. He is on 2 L of oxygen with a pulse ox 97%, pulse ox on room air was 87%, patient was placed back on oxygen. Some mild nausea, but no worsening dyspnea, he does get exertional dyspnea. No complaints of chest pain. No new chest x-ray today, yesterday's chest x-ray showed basilar effusions and associated atelectasis, fluid volume overload. Patient continues on oral Lasix currently at 20 mg twice daily, he is on empiric Invanz no form of Zosyn, he is on oral anticoagulation for atrial fibrillation, his rate is currently controlled. He is maintaining negative fluid balance. We'll obtain follow-up chest x-ray. No worsening peripheral edema, patient is status post right-sided thoracentesis a few days back and the pleural effusion was transuda tive/cardiogenic in nature, cytology was negative, and pleural fluid cultures were negative. Objective - Vital Signs Vital signs: Vital Signs Temp 97.5 F L 12/11/19 11:01 Pulse 65 12/11/19 11:01 Resp 18 12/11/19 11:04 BP 108/63 12/11/19 11:01 Pulse Ox 97 12/11/19 11:04 Intake & Output 12/10/19 12/11/19 12/11/19 18:59 06:59 18:59 Intake Total 40 160 300 Output Total 390 450 Balance -350 -290 300 Weight 75.2 kg 75.2 kg Intake: IV 40 160 Sodium Chloride 0.9% 1, 40 160 000 ml @ 20 mls/hr IV . Q24H [facility] Rx#:[id number] Oral 300 Output: Urine 390 450 Other: Voiding Method Indwelling Catheter Urinal Urinal - Exam GENERAL EXAM: Alert, very pleasant, 69-year-old frail looking white female, resting in bed, 2 L of oxygen as pulse ox 97%, comfortable in no apparent distress. HEAD: Normocephalic/atraumatic. EYES: Normal reaction of pupils, equal size. Conjunctiva pink, sclera white. NOSE: Clear with pink turbinates. THROAT: No erythema or exudates. NECK: No masses, no JVD, no thyroid enlargement, no adenopathy. CHEST: No chest wall deformity. Symmetrical expansion. LUNGS: Equal air entry with no crackles, wheeze, rhonchi or dullness. CVS: Irregular rate and rhythm, normal S1 and S2, no gallops, no murmurs, no rubs ABDOMEN: Soft, nontender. No hepatosplenomegaly, normal bowel sounds, no guar ding or rigidity. EXTREMITIES: No clubbing, no edema, no cyanosis, 2+ pulses and upper and lower extremities. MUSCULOSKELETAL: Muscle strength and tone normal. SPINE: No scoliosis or deformity SKIN: No rashes CENTRAL NERVOUS SYSTEM: Alert and oriented -3. No focal deficits, tone is normal in all 4 extremities. PSYCHIATRIC: Alert and oriented -3. Appropriate affect. Intact judgment and insight. - Labs CBC & Chem 7: 12/09/19 06:29 12/10/19 06:50 Labs: Abnormal Lab Results - Last 24 Hours (Table) 12/11/19 Range/Units 11:48 POC Glucose (mg/dL) 187 H (75-99) mg/dL Microbiology - Last 24 Hours (Table) 12/08/19 10:00 Gram Stain - Preliminary Pleural Fluid Body Fluid Culture - Preliminary 12/05/19 22:50 Blood Culture - Preliminary Blood No Growth after 120 hours Assessment and Plan Plan: Assessment: #1. Acute pulmonary edema secondary to systolic congestive heart failure #2. Ischemic cardiomyopathy with previous AICD placement #3. Acute discharge of AICD 2 #4. History of multivessel coronary artery disease with previous NH and previous coronary artery stenting #5. History of tachycardia requiring cardiac ablation #6. Dyslipidemia #7. Atrial fibrillation with RVR, currently the rate is better controlled, patient is on amiodarone, and oral anticoagulation Xarelto #8. Bilateral pleural effusions, right greater than left, status post right- sided thoracentesis on 12/08/2019 with removal of 900 mL of fluid which was transferred dated/cardiogenic in nature, negative cytology and cultures Plan: Continue diuretics, follow-up chest x-ray in the morning, follow-up blood work including CBC and BMP, continue with empiric antibiotics, patient has been afebrile, no complaints of chest pain worsening dyspnea, still requiring supplemental oxygen, pleural fluid was found to be transudate is consistent with patient's that is acute systolic congestive heart failure. Pleural fluid and cytology were negative. We'll continue to follow I performed a history & physical examination of the patient and discussed their management with my nurse practitioner, Nimco Drew. I reviewed the nurse practitioner's note and agree with the documented findings and plan of care. Lung sounds are positive for diminished breath sounds. The findings and the impression was discussed with the patient. I attest to the documentation by the nurse practitioner. Time with Patient: Less than 30
--- NOTE | 2019-12-11 14:16 | P.PN ---
Subjective Progress Note Date: 12/11/19 This is a 69-year-old gentleman with history of coronary artery disease and prior coronary artery revascularization as well as severe ischemic cardiomyopathy and prior AICD who was admitted to the hospital after his AICD had discharged. The device was interrogated and revealed appropriate shocks. Patient was seen and examined on the telemetry unit this morning, blood pressure 126/60 heart rate in the 80s, complaining of some mild nausea this morning, overall he states he slept well. Denies any chest pain or palpitations, no dizziness. Blood pressure 108/60 with a heart rate in the 60s, 97% on 2 L of oxygen. Sodium 133, potassium 4.0, BUN 39, creatinine 1.5 magnesium 4.1. Objective - Vital Signs Vital signs: Vital Signs Temp 97.5 F L 12/11/19 11:01 Pulse 65 12/11/19 11:01 Resp 18 12/11/19 11:04 BP 108/63 12/11/19 11:01 Pulse Ox 97 12/11/19 11:04 Intake & Output 12/10/19 12/11/19 12/11/19 18:59 06:59 18:59 Intake Total 40 160 300 Output Total 390 450 Balance -350 -290 300 Weight 75.2 kg 75.2 kg Intake: IV 40 160 Sodium Chloride 0.9% 1, 40 160 000 ml @ 20 mls/hr IV . Q24H [facility] Rx#:[id number] Oral 300 Output: Urine 390 450 Other: Voiding Method Indwelling Catheter Urinal Urinal - Exam PHYSICAL EXAMINATION: GENERAL: 69-year-old gentleman in no acute distress at the time of my examination HEENT: Head is atraumatic, normocephalic. Pupils equal, round. Sclera anicteric. Conjunctiva are clear. Mucous membranes of the mouth are moist. Neck is supple. There is no elevated jugular venous pressure. No carotid bruit is heard. HEART EXAMINATION: Heart S1 and S2 irregularly irregular CHEST EXAMINATION: Lungs reveal diminished air entry to bilateral bases. ABDOMEN: Soft, nontender. Bowel sounds are heard. No organomegaly noted. EXTREMITIES: 2+ peripheral pulses with no evidence of peripheral edema and no calf tenderness noted. NEUROLOGIC patient is awake, alert and oriented X3 . - Labs CBC & Chem 7: 12/09/19 06:29 12/10/19 06:50 Labs: Abnormal Lab Results - Last 24 Hours (Table) 12/11/19 Range/Units 11:48 POC Glucose (mg/dL) 187 H (75-99) mg/dL Microbiology - Last 24 Hours (Table) 12/08/19 10:00 Gram Stain - Preliminary Pleural Fluid Body Fluid Culture - Preliminary 12/05/19 22:50 Blood Culture - Preliminary Blood No Growth after 120 hours Assessment and Plan Plan: Assessment and plan #1 AICD discharge #2 known severe ischemic cardiomyopathy #3 coronary artery disease with prior revascularization #4 paroxysmal atrial fibrillation #5 systolic congestive heart failure acute on chronic Plan From cardiology's perspective, we'll continue the patient on his current medications. Continue oral anticoagulation. DNP note has been reviewed, I agree with a documented findings and plan of care. Patient was seen and examined.
[2019-12-11] MEDS: RIVAROXABAN 20 MG TAB PO SCH (17:57)
[2019-12-11] MEDS: ATORVASTATIN 80 MG TAB PO SCH (20:01)
--- NOTE | 2019-12-11 20:37 | P.PN ---
Progress Note - Text Progress Note Date: 12/11/19 Chief Complaint: AICD firing History of presenting complaint: This is a pleasant 69-year-old patient of Dr. Cheatham. Chronic stable medical conditions include coronary artery disease, hyperlipidemia, multiple MIs in the past, coronary stent, peptic ulcer disease, ischemic cardiomyopathy, previous V. tach ablation, atrial fibrillation,. Patient was driving home yesterday when he saw lights flashing and then his AICD kicked in twice. Presented to the ER. Admitted to the floor. Patient became short of breath. Had to be given Lasix and put on a BiPAP. Then transferred to the ICU. AICD interrogation did show V. tach. Patient put on IV amiodarone. This morning patient is feeling better. Daughter the bedside. Patient had been on eliquis previously. Because the co- pay was very high patient stopped taking it. Just last week he was started on Xarelto. Per cardiology and also had atrial fibrillation. Getting IV Lasix. Also had acute kidney injury likely prerenal and hepatorenal-better with IV Lasix. Right pleural effusion --900 cc of pleural fluid removed . Today-moved out of the ICU. Atrial flutter fibrillation rate controlled. Decreased appetite. Sitting up in a chair. Tired. Oral Lasix Review of systems: Was done for constitutional, cardiovascular, GI, pulmonary. relevant finding as above Active Medications Amiodarone HCl (Amiodarone 200 Mg Tab) 400 mg PO BID [facility] Last Admin: 12/11/19 20:01 Dose: 400 mg Documented by: Aspirin (Aspirin 325 Mg Tab) 325 mg PO DAILY [facility] Last Admin: 12/11/19 08:24 Dose: 325 mg Documented by: Atorvastatin Calcium (Atorvastatin 80 Mg Tab) 80 mg PO HS [facility] Last Admin: 12/11/19 20:01 Dose: 80 mg Documented by: Fluconazole (Fluconazole 100 Mg Tab) 100 mg PO DAILY [facility] Last Admin: 12/11/19 08:24 Dose: 100 mg Documented by: Furosemide (Furosemide 20 Mg Tab) 20 mg PO BID@0900,1600 [facility] Last Admin: 12/11/19 15:07 Dose: 20 mg Documented by: Sodium Chloride (Saline 0.9%) 1,000 mls @ 20 mls/hr IV .Q24H [facility] Last Admin: 12/10/19 20:48 Dose: 20 mls/hr Documented by: Piperacillin Sod/Tazobactam (Sod 3.375 gm/ Sodium Chloride) 100 mls @ 25 mls/hr IVPB Q12H [facility] Last Admin: 12/11/19 17:58 Dose: 25 mls/hr Documented by: Metoprolol Tartrate (Metoprolol Tartrate 25 Mg Tab) 25 mg PO BID [facility] Last Admin: 12/11/19 20:00 Dose: 25 mg Documented by: Midodrine (Midodrine 5 Mg Tab) 5 mg PO AC-TID [facility] Last Admin: 12/11/19 17:03 Dose: Not Given Documented by: Naloxone HCl (Naloxone 0.4 Mg/Ml 1 Ml Vial) 0.2 mg IV Q2M PRN PRN Reason: Opioid Reversal Nystatin (Nystatin 100,000 Unit/Ml Susp 500,000 Unit/5 Ml Cup) 500,000 unit PO QID [facility] Last Admin: 12/11/19 18:05 Dose: Not Given Documented by: Rivaroxaban (Rivaroxaban 20 Mg Tab) 20 mg PO W/SUPPER [facility] Last Admin: 12/11/19 17:57 Dose: 20 mg Documented by: Physical examination: VITAL SIGNS: 97.1, 75, 18, 111/71, 96% on 2 L GENERAL: Sitting up in a chair, tired ORAL cavity: White patches EYES: Pupils equal. Conjunctiva normal. NECK: JVD not raised; masses not palpable. HEART: heart sounds irregular; no edema. LUNGS: Respiratory rate increased, decreased breath sounds. ABDOMEN: Soft, nontender, liver spleen not palpable, no masses palpable. PSYCH: Alert and oriented x3; mood and affect normal. INVESTIGATIONS, reviewed in the clinical context: Potassium 4 bun 39 creatinine 1.56 Previous testing White count 7.3 hemoglobin 17.1 INR 1.8 potassium 3. creatinine 1.17 Lactic acid 2. 6 repeat 2.4 Troponin I 0.035, 0.047 EKG tracing personally reviewed by [id number] tachycardia Chest x-ray film personally reviewed by me-pulmonary edema 2-D echocardiogram-EF 30-35%. Wall motion abnormalities. Moderate TR, Chest x-ray film-personally reviewed by me-right pleural effusion Pro-calcitonin 0.05 Assessment: -AICD firing 2, underlying rhythm of ventricular tachycardia -Coronary artery disease with prior history of stents -Acute congestive heart failure exacerbation from systolic dysfunction EF 30-35%- initially requiring BiPAP-improve -Acute hypoxic respiratory failure from pulmonary edema, POA -Moderate tricuspid regurgitation -Hyperlipidemia -Persistent atrial fibrillation/flutter-rate controlled -Chronic nicotine dependence patient active cigarette smoker -Acute kidney injury likely prerenal from diuretics and hepatorenal-new diagnosis-responding to IV Lasix -Right pleural effusion-status post thoracentesis-900 mL removed -Oral candidiasis -Troponin leak from hemodynamic mismatch. No clinical evidence of acute coronary syndrome. Plan: Patient's white count is gradually going up. Wonder if it is from volume contraction. Empirically on Zosyn. Pro-calcitonin 0.05. May consider discontinuing antibiotics in next 24-48 hrs. Discussed with patient.
[2019-12-11] MEDS: SODIUM CHLORIDE 0.9% 1,000 ML IV SCH (20:38)
[2019-12-11 20:43] LABS: Glucose,Whole Blood 174 mg/dL (75-99)
[2019-12-12] MEDS: PIPERACILLIN-TAZOBACTAM 3.375 GM in SODIUM CHLORIDE 0.9% 100 ML IVPB SCH ×2 (04:25→15:54)
[2019-12-12] MEDS: MIDODRINE 5 MG TAB PO SCH ×3 (05:54→15:54)
[2019-12-12 06:23] LABS: Glucose,Whole Blood 105 mg/dL (75-99)
--- NOTE | 2019-12-12 07:22 | XR ---
EXAMINATION TYPE: XR chest 1V portable DATE OF EXAM: 12/12/2019 CLINICAL HISTORY: Difficulty breathing and CHF progress study. TECHNIQUE: Single AP portable upright view of the chest is obtained. COMPARISON: Chest x-ray from 2 days earlier and older studies. FINDINGS: Cardiac silhouette size stable and mildly enlarged with single lead upper left chest pacem little/defibrillator redemonstrated. There is persistent inferior lateral single lead pacemaker/defibri llator overlying the descending thoracic aorta. There is background chronic parenchymal change with w orsening right-sided pleural effusion. Persistent patchy right greater than left bibasilar opacity. L eft lung otherwise remains clear. Underlying dextroconvex scoliosis redemonstrated. IMPRESSION: Chronic changes and mild cardiomegaly with small to moderate right pleural effusion showi ng continued interval progression or worsening. Stable bibasilar acute infiltrate and/or atelectasis noted.
[2019-12-12 07:51] LABS: HCT 41.3 % (39.0-53.0); HGB 13.5 gm/dL (13.0-17.5); MCH 29.5 pg (25.0-35.0); MCHC 32.8 g/dL (31.0-37.0); MCV 90.1 fL (80.0-100.0); Platelet Count 238 k/uL (150-450); RBC 4.58 m/uL (4.30-5.90); WBC 15.1 k/uL (3.8-10.6)
[2019-12-12 08:08] LABS: Calcium 8.1 mg/dL (8.4-10.2); Magnesium 2.1 mg/dL (1.6-2.3); Potassium 3.7 mmol/L (3.5-5.1)
[2019-12-12] MEDS: NYSTATIN 100,000 UNIT/ML SUSP 500,000 UNIT/5 ML CUP PO SCH ×4 (08:50→20:04)
[2019-12-12] MEDS: AMIODARONE 200 MG TAB PO SCH ×2 (08:53→20:01)
[2019-12-12] MEDS: METOPROLOL TARTRATE 25 MG TAB PO SCH ×2 (08:53→20:01)
[2019-12-12] MEDS: ASPIRIN 325 MG TAB PO SCH (08:53)
[2019-12-12] MEDS: FUROSEMIDE 20 MG TAB PO SCH (08:53)
[2019-12-12] MEDS: FLUCONAZOLE 100 MG TAB PO SCH (08:53)
--- NOTE | 2019-12-12 10:16 | P.PN ---
Subjective Progress Note Date: 12/12/19 Principal diagnosis: This 69-year-old male seen in consultation because of acute kidney injury, secondary to cardiorenal syndrome. Is known with coronary artery disease with multiple coronary stents, peptic ulcer disease cardiomyopathy atrial fibrillation and AICD Came in because of shortness of breath and is on Lasix. His responded well as far as her creatinine is concerned and is down to 1.19 from 1.5 He complains of nausea and some small amount of mucoid vomitus No other complaints otherwise. No dizziness chest pain shortness of breath cough. No abdominal pain GERD. He is on Diflucan because of suspected oral candidiasis Objective - Vital Signs Vital signs: Vital Signs Temp 98.0 F 12/12/19 04:00 Pulse 83 12/12/19 08:00 Resp 16 12/12/19 08:00 BP 126/76 12/12/19 08:00 Pulse Ox 98 12/12/19 08:00 Intake & Output 12/11/19 12/12/19 12/12/19 18:59 06:59 18:59 Intake Total 580 180 120 Output Total 301 200 200 Balance 279 -20 -80 Weight 75.2 kg 73.5 kg Intake: IV 160 80 Sodium Chloride 0.9% 1, 160 80 000 ml @ 20 mls/hr IV . Q24H [facility] Rx#:[id number] Intake, IV Titration 100 Amount Piperacillin-Tazobactam 3 100 .375 gm In Sodium Chloride 0.9% 100 ml @ 25 mls/hr IVPB Q12H [facility] Rx# :[id number] Oral 420 120 Output: Urine 300 200 200 Stool 1 Other: Voiding Method Urinal Urinal ALLERGIES awake alert oriented comfortable looks somewhat depressed HEENT exam JVP is mildly elevated about 4-5 cm Neck is supple no facial asymmetry Lungs are clear to auscultation good air entry bilaterally although the chest x- ray showing some worsening from 2 days ago with small effusion on the right and possible CHF Heart sounds are remarkable for atrial fibrillation No murmur rub gallop is heard Abdomen soft nontender Extremity exam was trace edema Neurologically awake alert oriented - Labs CBC & Chem 7: 12/12/19 07:25 12/12/19 07:25 Labs: Abnormal Lab Results - Last 24 Hours (Table) 12/11/19 12/11/19 12/12/19 Range/Units 11:48 20:41 06:22 WBC (3.8-10.6) k/uL Sodium (137-145) mmol/L Carbon Dioxide (22-30) mmol/L BUN (9-20) mg/dL Glucose (74-99) mg/dL POC Glucose (mg/dL) 187 H 174 H 105 H (75-99) mg/dL Calcium (8.4-10.2) mg/dL 12/12/19 12/12/19 Range/Units 07:25 07:25 WBC 15.1 H (3.8-10.6) k/uL Sodium 135 L (137-145) mmol/L Carbon Dioxide 31 H (22-30) mmol/L BUN 28 H (9-20) mg/dL Glucose 112 H (74-99) mg/dL POC Glucose (mg/dL) (75-99) mg/dL Calcium 8.1 L (8.4-10.2) mg/dL Microbiology - Last 24 Hours (Table) 12/08/19 10:00 Gram Stain - Final Pleural Fluid Body Fluid Culture - Final 12/05/19 22:50 Blood Culture - Final Blood No Growth after 144 hours Assessment and Plan Assessment: Impression 1. Acute kidney injury secondary to cardiorenal syndrome resolved with Lasix. 2. Nausea and minimal vomiting or not very clear 3. Small right pleural effusion recurrent 4. Ischemic cardiomyopathy, paroxysmal atrial fibrillation, congestive heart failure, AICD discharged Recommendation 1. Continue Lasix. 2. Symptomatic treatment for nausea 3. Watch labs for 1 more day
--- NOTE | 2019-12-12 11:14 | P.PN ---
Subjective Progress Note Date: 12/12/19 Principal diagnosis: An AICD shocks This is a 69-year-old gentleman was coronary artery disease and prior coronary artery revascularization as well as severe ischemic cardiomyopathy as well as a status post AICD who was admitted to the hospital with AICD shocks. The device was interrogated and revealed appropriate shocks. The was seen today December [id number]. He stated he is feeling better. Hemodynamically he is a stable. He continues to be on Lasix IV. The chest x- ray was reviewed and continues to show right pleural effusion. Pulmonary services on the case. He continues to be on midodrine. Otherwise he is on amiodarone and also he is on oral anticoagulation. Objective - Vital Signs Vital signs: Vital Signs Temp 98.0 F 12/12/19 04:00 Pulse 83 12/12/19 08:00 Resp 16 12/12/19 08:00 BP 126/76 12/12/19 08:00 Pulse Ox 98 12/12/19 08:00 Intake & Output 12/11/19 12/12/19 12/12/19 18:59 06:59 18:59 Intake Total 580 180 120 Output Total 301 200 200 Balance 279 -20 -80 Weight 75.2 kg 73.5 kg Intake: IV 160 80 Sodium Chloride 0.9% 1, 160 80 000 ml @ 20 mls/hr IV . Q24H [facility] Rx#:[id number] Intake, IV Titration 100 Amount Piperacillin-Tazobactam 3 100 .375 gm In Sodium Chloride 0.9% 100 ml @ 25 mls/hr IVPB Q12H [facility] Rx# :[id number] Oral 420 120 Output: Urine 300 200 200 Stool 1 Other: Voiding Method Urinal Urinal - Constitutional General appearance: Present: no acute distress - Respiratory Respiratory: right: diminished - Cardiovascular Rhythm: irregularly irregular Heart sounds: normal: S1, S2 - Labs CBC & Chem 7: 12/12/19 07:25 12/12/19 07:25 Labs: Abnormal Lab Results - Last 24 Hours (Table) 12/11/19 12/11/19 12/12/19 Range/Units 11:48 20:41 06:22 WBC (3.8-10.6) k/uL Sodium (137-145) mmol/L Carbon Dioxide (22-30) mmol/L BUN (9-20) mg/dL Glucose (74-99) mg/dL POC Glucose (mg/dL) 187 H 174 H 105 H (75-99) mg/dL Calcium (8.4-10.2) mg/dL 12/12/19 12/12/19 Range/Units 07:25 07:25 WBC 15.1 H (3.8-10.6) k/uL Sodium 135 L (137-145) mmol/L Carbon Dioxide 31 H (22-30) mmol/L BUN 28 H (9-20) mg/dL Glucose 112 H (74-99) mg/dL POC Glucose (mg/dL) (75-99) mg/dL Calcium 8.1 L (8.4-10.2) mg/dL Microbiology - Last 24 Hours (Table) 12/08/19 10:00 Gram Stain - Final Pleural Fluid Body Fluid Culture - Final 12/05/19 22:50 Blood Culture - Final Blood No Growth after 144 hours Assessment and Plan Assessment: Assessment #1 status post an AICD shocks #2 known severe cardiomyopathy #3 known coronary artery disease with prior revascularization #4 atrial fibrillation with RVR and the patient converted to normal sinus [facility] #5 heart failure with reduced ejection fraction exacerbation Plan #1 continue the current medical regimen #2 continue Lasix IV #3 follow-up with the patient
[2019-12-12] MEDS: FUROSEMIDE 10 MG/ML 4 ML VIAL IV SCH ×3 (12:44→22:53)
--- NOTE | 2019-12-12 12:54 | P.PN ---
Subjective Progress Note Date: 12/12/19 Principal diagnosis: Acute hypoxic respiratory failure secondary to acute pulmonary edema, secondary to acute on chronic systolic congestive heart failure This 69-year-old male patient has CAD with multivessel disease and multiple stents placed in the past, in addition to history of ischemic cardiomyopathy and the patient has an AICD in place. The patient has had previous VT ablation. He has also approximately atrial fibrillation. The patient was driving yesterday when he had his ileostomy discharge and this happened twice and the second one a few minutes later after the first shock. The patient denies having any chest pain. He was having progressive increased shortness of breath over the past 2 weeks. He was brought into the hospital. He was started on amiodarone drip and his current rhythm is A. fib. His chest x-ray showed pulmonary edema and there was increased infiltration of the right lung base more than the left. There was no evidence of any lung masses or tumors. There may be some small bilateral pleural effusions. The patient denies having any cough or sputum production. No hemoptysis. No pleurisy. White cell count of 14.6. Creatinine is at 1.05. The lactic acid level at 2.6. ProBNP level is 4250. The pro calcitonin level is still pending for now. The patient was given a dose of Rocephin and Zithromax in the ED. The patient has no focal neurological deficits. The patient has no chest pain. He has not required any pressors. Patient was reevaluated today on 12/07/19, patient remains in the ICU, presently on 6 L/m via nasal cannula, O2 saturations 97%. He was seen by cardiology, and his IV amiodarone was switched to oral amiodarone. Remains on Lasix for his pulmonary edema. Chest x-ray continues to show evidence of congestive heart failure. Underlying pneumonia is felt to be very unlikely. Patient is empirically on antibiotics, but he is mostly on diuretics, his WBC count is however elevated at 19.5, hemoglobin is 16.7. His electrolytes are normal renal functioning is a bit worse and I believe it is mostly cardiorenal his creatinine is 1.79 today. His BNP level was elevated over 4000, pro calcitonin is 0.05 Patient was reevaluated today on 12/08/19, remains in the ICU, he is on 6 L nasal cannula, O2 sats is 96%, remains in atrial fibrillation with a rate of 107. IV fluid is at KVO, chest x-ray this morning showed good sized right-sided pleural effusion and a ultrasound of the chest confirmed the finding. Proceeded to right-sided thoracentesis, I was able to drain and had a cc of fluid from the [facility] pleural space. Patient tolerated the procedure well. Although the ultrasound of the chest showed fluid on the left pleural space, the chest x-ray is not impressive for effusion on the left side. Hence I will not that the left side. Patient remains on diuretics, and he is in a negative balance. WBC count today is 20 hemoglobin is 15.4 lites are normal renal profile is improved BUN is 31 creatinine is 1.20 compared to 1.79 yesterday. Reevaluated today on 12/09/19, remains in the ICU, patient is feeling much better, breathing a lot easier, feels great, patient made a dramatic improvement since he had his right sided thoracentesis. Remains on oxygen at 6 L, O2 sats is 98%. His IV fluids at KVO. Remains in atrial fibrillation with controlled rate 73 per minute. Pleural effusion results are consistent with transudate, low protein and low LDH. His Lasix was switched to oral, and I have cleared him to be transferred to a monitor bed on selective if cleared by cardiology. His blood pressure medications are being adjusted mostly because of intermittently low blood pressure. Reevaluated today on 12/10/19, remains in the ICU as an overflow. Denies chest pain, denies any shortness of breath, his urine output is marginal, remains on Lasix, he is now on oral Lasix. Blood pressure is requiring midodrine, his atrial fibrillation seems to be under control. Patient remains marginal at best. Renal functioning is poor with BUN of 39 creatinine 1.56. WBC count is 18.1 hemoglobin is 14.1 patient remains empirically on antibiotics. The pleural effusion was definitely transudative/cardiogenic in nature 12/11/2019 patient is seen in follow-up. He is on 2 L of oxygen with a pulse ox 97%, pulse ox on room air was 87%, patient was placed back on oxygen. Some mild nausea, but no worsening dyspnea, he does get exertional dyspnea. No complaints of chest pain. No new chest x-ray today, yesterday's chest x-ray showed basilar effusions and associated atelectasis, fluid volume overload. Patient continues on oral Lasix currently at 20 mg twice daily, he is on empiric Invanz no form of Zosyn, he is on oral anticoagulation for atrial fibrillation, his rate is currently controlled. He is maintaining negative fluid balance. We'll obtain follow-up chest x-ray. No worsening peripheral edema, patient is status post right-sided thoracentesis a few days back and the pleural effusion was transudative/cardiogenic in nature, cytology was negative, and pleural fluid cultures were negative. The patient is seen today 12/12/2019 in follow-up on the selective care unit. He is currently awake and alert in no acute distress. Maintaining O2 saturation in the 90s on 2 L/m per nasal cannula. His been afebrile. Hemodynamically stable. Pleural fluid culture reveals no growth. Blood culture revealed no growth. White count 15.1. Hemoglobin 13.5. Sodium 135. Creatinine 1.19. Chest x-ray reveals chronic changes and mild cardiomegaly with small to moderate recurrent right pleural effusion. Stable bibasilar infiltrate/atelectasis. Currently on Lasix 20 mg by mouth twice a day. Continued on Zosyn. Objective - Vital Signs Vital signs: Vital Signs Temp 98.0 F 12/12/19 04:00 Pulse 83 12/12/19 08:00 Resp 16 12/12/19 11:49 BP 126/76 12/12/19 08:00 Pulse Ox 98 12/12/19 08:00 Intake & Output 12/11/19 12/12/19 12/12/19 18:59 06:59 18:59 Intake Total 580 180 120 Output Total 301 200 203 Balance 279 -20 -83 Weight 75.2 kg 73.5 kg Intake: IV 160 80 Sodium Chloride 0.9% 1, 160 80 000 ml @ 20 mls/hr IV . Q24H [facility] Rx#:[id number] Intake, IV Titration 100 Amount Piperacillin-Tazobactam 3 100 .375 gm In Sodium Chloride 0.9% 100 ml @ 25 mls/hr IVPB Q12H [facility] Rx# :[id number] Oral 420 120 Output: Urine 300 200 200 Stool 1 3 Other: Voiding Method Urinal Urinal Urinal - Exam GENERAL EXAM: Alert, very pleasant, 69-year-old frail looking male patient, resting in bed, 2 L of oxygen as pulse ox 98%, comfortable in no apparent distress. HEAD: Normocephalic/atraumatic. EYES: Normal reaction of pupils, equal size. Conjunctiva pink, sclera white. NOSE: Clear with pink turbinates. THROAT: No erythema or exudates. NECK: No masses, no JVD, no thyroid enlargement, no adenopathy. CHEST: No chest wall deformity. Symmetrical expansion. LUNGS: Equal air entry with crackles in bilateral bases right greater than left. CVS: Irregular rate and rhythm, normal S1 and S2, no gallops, no murmurs, no rubs ABDOMEN: Soft, nontender. No hepatosplenomegaly, normal bowel sounds, no guarding or rigidity. EXTREMITIES: No clubbing, no edema, no cyanosis, 2+ pulses and upper and lower extremities. MUSCULOSKELETAL: Muscle strength and tone normal. SPINE: No scoliosis or deformity SKIN: No rashes CENTRAL NERVOUS SYSTEM: Alert and oriented -3. No focal deficits, tone is normal in all 4 extremities. PSYCHIATRIC: Alert and oriented -3. Appropriate affect. Intact judgment and insight. - Labs CBC & Chem 7: 12/12/19 07:25 12/12/19 07:25 Labs: Abnormal Lab Results - Last 24 Hours (Table) 12/11/19 12/12/19 12/12/19 Range/Units 20:41 06:22 07:25 WBC (3.8-10.6) k/uL Sodium 135 L (137-145) mmol/L Carbon Dioxide 31 H (22-30) mmol/L BUN 28 H (9-20) mg/dL Glucose 112 H (74-99) mg/dL POC Glucose (mg/dL) 174 H 105 H (75-99) mg/dL Calcium 8.1 L (8.4-10.2) mg/dL 12/12/19 Range/Units 07:25 WBC 15.1 H (3.8-10.6) k/uL Sodium (137-145) mmol/L Carbon Dioxide (22-30) mmol/L BUN (9-20) mg/dL Glucose (74-99) mg/dL POC Glucose (mg/dL) (75-99) mg/dL Calcium (8.4-10.2) mg/dL Microbiology - Last 24 Hours (Table) 12/08/19 10:00 Gram Stain - Final Pleural Fluid Body Fluid Culture - Final 12/05/19 22:50 Blood Culture - Final Blood No Growth after 144 hours Assessment and Plan Assessment: #1. Acute pulmonary edema secondary to an acute exacerbation of systolic congestive heart failure #2. Ischemic cardiomyopathy with previous AICD placement #3. Acute discharge of AICD 2 #4. History of multivessel coronary artery disease with previous [place] and previous coronary artery stenting #5. History of tachycardia requiring cardiac ablation #6. Dyslipidemia #7. Atrial fibrillation with RVR, currently the rate is better controlled, patient is on amiodarone, and oral anticoagulation Xarelto #8. Bilateral pleural effusions, right greater than left, status post right- sided thoracentesis on 12/08/2019 with removal of 900 mL of fluid which was transudate/cardiogenic in nature, negative cytology and cultures Plan: The patient was seen and evaluated by Dr. Beaver Chest x-ray and labs reviewed Discontinue oral Lasix, and initiate Lasix 40 mg IV every 8 hours Ultrasound of the right chest in the a.m. Possible repeat thoracentesis if significant fluid findings We'll continue to follow and make further recommendations based on his clinical status I, the cosigning physician, performed a history & physical examination of the patient. Lungs sounds with crackles in the posterior bases right greater than left. Maintaining good O2 saturations in the 90s on 2 L/m per nasal cannula. I discussed the assessment and plan of care with my nurse practitioner, Edilia Malik. I attest to the above note as dictated by her.
[2019-12-12] MEDS: RIVAROXABAN 20 MG TAB PO SCH (15:54)
[2019-12-12] MEDS ORDERED: ONDANSETRON 4 MG/2 ML VIAL IVP PRN (16:08)
[2019-12-12] MEDS: FAMOTIDINE 20 MG/2 ML VIAL IV SCH (20:00)
[2019-12-12] MEDS: ATORVASTATIN 80 MG TAB PO SCH (20:01)
[2019-12-12] MEDS: SODIUM CHLORIDE 0.9% 1,000 ML IV SCH (20:04)
[2019-12-13] MEDS: PIPERACILLIN-TAZOBACTAM 3.375 GM in SODIUM CHLORIDE 0.9% 100 ML IVPB SCH ×2 (05:47→17:01)
[2019-12-13] MEDS: MIDODRINE 5 MG TAB PO SCH ×3 (05:50→17:01)
[2019-12-13] MEDS: FLUCONAZOLE 100 MG TAB PO SCH (08:57)
[2019-12-13] MEDS: AMIODARONE 200 MG TAB PO SCH ×2 (08:57→20:10)
[2019-12-13] MEDS: METOPROLOL TARTRATE 25 MG TAB PO SCH ×2 (08:57→20:11)
[2019-12-13] MEDS: ASPIRIN 325 MG TAB PO SCH (08:57)
[2019-12-13] MEDS: FUROSEMIDE 10 MG/ML 4 ML VIAL IV SCH (08:57)
[2019-12-13] MEDS: FAMOTIDINE 20 MG/2 ML VIAL IV SCH ×2 (08:57→20:11)
--- NOTE | 2019-12-13 09:03 | US ---
EXAMINATION TYPE: US chest DATE OF EXAM: 12/13/2019 COMPARISON: x-ray 12/12/2019 CLINICAL HISTORY: Markings for thoracentesis by pulmonary staff. TECHNIQUE: Targeted ultrasound of the posterior lower bilateral hemithoraces EXAM MEASUREMENTS: Right Pleural Effusion pocket size: 5.8 cm Right skin surface to fluid distance: 2.6 cm Left Pleural Effusion pocket size: 6.5 cm Left skin surface to fluid distance: 2.1 cm Right side marked for possible thoracentesis outside the dept. Left side marked for possible thoracentesis outside the dept. Pulmonologists are able to review the images in the patient?s EMR. IMPRESSIONS: 1. Bilateral pleural effusions
[2019-12-13 09:45] LABS: Calcium 8.3 mg/dL (8.4-10.2); Potassium 3.5 mmol/L (3.5-5.1)
[2019-12-13 09:47] LABS: Basophils # (A) 0.1 k/uL (0-0.2); Basophils % (A) 1 %; Eosinophils # (A) 0.2 k/uL (0-0.7); Eosinophils % (A) 2 %; HCT 43.6 % (39.0-53.0); HGB 14.4 gm/dL (13.0-17.5); Lymphocytes # (A) 3.5 k/uL (1.0-4.8); Lymphocytes % (A) 24 %; MCH 30.3 pg (25.0-35.0); MCHC 33.1 g/dL (31.0-37.0); MCV 91.6 fL (80.0-100.0); Mean Platelet Volume 9.6; Monocytes # (A) 1.6 k/uL (0-1.0); Monocytes % (A) 11 %; Neutrophils % (A) 61 %; Platelet Count 269 k/uL (150-450); RBC 4.76 m/uL (4.30-5.90); RDW 14.4 % (11.5-15.5); WBC 14.8 k/uL (3.8-10.6)
--- NOTE | 2019-12-13 11:39 | P.PN ---
Subjective Progress Note Date: 12/13/19 Principal diagnosis: This 69-year-old male seen in consultation because of acute kidney injury, secondary to cardiorenal syndrome. Is known with coronary artery disease with multiple coronary stents, peptic ulcer disease cardiomyopathy atrial fibrillation and AICD Came in because of shortness of breath and is on Lasix. His responded well as far as her creatinine is concerned and is down to 1.19 from 1.2 He complains of cough with mucoid expectoration No other complaints otherwise. No dizziness chest pain shortness of breath cough. No abdominal pain GERD. He is on Diflucan because of suspected oral candidiasis Objective - Vital Signs Vital signs: Vital Signs Temp 98.0 F 12/13/19 03:29 Pulse 70 12/13/19 08:00 Resp 16 12/13/19 11:15 BP 112/72 12/13/19 08:00 Pulse Ox 96 12/13/19 08:00 Intake & Output 12/12/19 12/13/19 12/13/19 18:59 06:59 18:59 Intake Total 365 100 240 Output Total 1003 950 2 Balance -638 -850 238 Weight 73 kg Intake: Intake, IV Titration 100 Amount Piperacillin-Tazobactam 3 100 .375 gm In Sodium Chloride 0.9% 100 ml @ 25 mls/hr IVPB Q12H [facility] Rx# :[id number] Oral 365 240 Output: Urine 1000 950 Stool 3 2 Other: Voiding Method Urinal Urinal Urinal # Voids 1 on examination is awake alert oriented comfortable HEENT exam no JVP neck is supple no facial asymmetry Lungs are clear to auscultation with good air entry bilaterally on both sides although there is a small effusion on the right Her sounds are unremarkable for any murmur rub gallop Abdomen soft nontender Extremity exam reveals no edema Neurologically awake alert oriented - Labs CBC & Chem 7: 12/13/19 08:33 12/13/19 08:33 Labs: Abnormal Lab Results - Last 24 Hours (Table) 12/13/19 12/13/19 Range/Units 08:33 08:33 WBC 14.8 H (3.8-10.6) k/uL Neutrophils # 9.0 H (1.3-7.7) k/uL Monocytes # 1.6 H (0-1.0) k/uL Sodium 134 L (137-145) mmol/L Chloride 91 L (98-107) mmol/L Carbon Dioxide 33 H (22-30) mmol/L BUN 24 H (9-20) mg/dL Glucose 176 H (74-99) mg/dL Calcium 8.3 L (8.4-10.2) mg/dL Microbiology - Last 24 Hours (Table) 12/08/19 10:00 Gram Stain - Final Pleural Fluid Body Fluid Culture - Final Assessment and Plan Assessment: Impression 1. Acute kidney injury secondary to cardiorenal syndrome resolved with Lasix.creatinine is 1.24 2. minimal cough 3. Small right pleural effusion recurrent 4. Ischemic cardiomyopathy, paroxysmal atrial fibrillation, congestive heart failure, AICD Recommendation 1. reduce Lasix and change it to oral, currently on IV Lasix 80 every 8 change it to by mouth 40 twice a day 2 check orthostatics 3. Labs tomorrowthank you, as her creatinine went up slightly from 1.19-to 1.2
[2019-12-13] MEDS: NYSTATIN 100,000 UNIT/ML SUSP 500,000 UNIT/5 ML CUP PO SCH ×4 (11:53→20:11)
--- NOTE | 2019-12-13 12:17 | P.PN ---
Subjective Principal diagnosis: An AICD shocks This is a 69-year-old gentleman was coronary artery disease and prior coronary artery revascularization as well as severe ischemic cardiomyopathy as well as a status post AICD who was admitted to the hospital with AICD shocks. The device was interrogated and revealed appropriate shocks. Subsequently the patient developed recurrent right pleural effusion required pleurocentesis one time. He was seen today 12/13/2019. He is feeling better. No chest pain or chest discomfort. The shortness of breath has improved. Hemodynamically he remains stable. Currently he is on Lasix by mouth which was switched from IV early or today. He underwent an ultrasound of the chest today and that revealed bilateral pleural effusion worse on the right than the left. Pulmonary service is on the case. If there is no plan for pleurocentesis, the patient can be possibly discharged home on oral diuretics. Objective - Vital Signs Vital signs: Vital Signs Temp 98.0 F 12/13/19 03:29 Pulse 72 12/13/19 11:57 Resp 16 12/13/19 11:57 BP 95/56 12/13/19 11:57 Pulse Ox 94 L 12/13/19 11:57 Intake & Output 12/12/19 12/13/19 12/13/19 18:59 06:59 18:59 Intake Total 365 100 240 Output Total 1003 950 2 Balance -398 -850 238 Weight 73 kg Intake: Intake, IV Titration 100 Amount Piperacillin-Tazobactam 3 100 .375 gm In Sodium Chloride 0.9% 100 ml @ 25 mls/hr IVPB Q12H [facility] Rx# :[id number] Oral 365 240 Output: Urine 1000 950 Stool 3 2 Other: Voiding Method Urinal Urinal Urinal # Voids 1 - Constitutional General appearance: Present: no acute distress - Respiratory Respiratory: bilateral: diminished - Cardiovascular Heart sounds: normal: S1, S2 - Labs CBC & Chem 7: 12/13/19 08:33 12/13/19 08:33 Labs: Abnormal Lab Results - Last 24 Hours (Table) 12/13/19 12/13/19 Range/Units 08:33 08:33 WBC 14.8 H (3.8-10.6) k/uL Neutrophils # 9.0 H (1.3-7.7) k/uL Monocytes # 1.6 H (0-1.0) k/uL Sodium 134 L (137-145) mmol/L Chloride 91 L (98-107) mmol/L Carbon Dioxide 33 H (22-30) mmol/L BUN 24 H (9-20) mg/dL Glucose 176 H (74-99) mg/dL Calcium 8.3 L (8.4-10.2) mg/dL Microbiology - Last 24 Hours (Table) 12/08/19 10:00 Gram Stain - Final Pleural Fluid Body Fluid Culture - Final Assessment and Plan Assessment: Assessment #1 status post an AICD shocks #2 known severe cardiomyopathy #3 known coronary artery disease with prior revascularization #4 atrial fibrillation with RVR and the patient converted to normal sinus mechanism #5 heart failure with reduced ejection fraction exacerbation Plan #1 continue the current medical regimen #2 discharged home in the next 12-24 hours
--- NOTE | 2019-12-13 13:07 | XR ---
EXAMINATION TYPE: XR chest 1V portable DATE OF EXAM: 12/13/2019 COMPARISON: 12/12/2019 INDICATION: Status post right thoracentesis TECHNIQUE: Single frontal view of the chest is obtained. FINDINGS: The heart size is normal. The pulmonary vasculature is normal. Minimal residual right pleural fluid is present. No pneumothorax is evident. Pacemaker overlies left chest. The cardiac device is along the left lateral chest IMPRESSION: 1. Small right pleural effusion. No pneumothorax is evident post thoracentesis
--- NOTE | 2019-12-13 13:56 | P.PN ---
Subjective Progress Note Date: 12/13/19 Principal diagnosis: Acute hypoxic respiratory failure secondary to acute pulmonary edema, secondary to acute on chronic systolic congestive heart failure This 69-year-old male patient has CAD with multivessel disease and multiple stents placed in the past, in addition to history of ischemic cardiomyopathy and the patient has an AICD in place. The patient has had previous VT ablation. He has also approximately atrial fibrillation. The patient was driving yesterday when he had his ileostomy discharge and this happened twice and the second one a few minutes later after the first shock. The patient denies having any chest pain. He was having progressive increased shortness of breath over the past 2 weeks. He was brought into the hospital. He was started on amiodarone drip and his current rhythm is A. fib. His chest x-ray showed pulmonary edema and there was increased infiltration of the right lung base more than the left. There was no evidence of any lung masses or tumors. There may be some small bilateral pleural effusions. The patient denies having any cough or sputum production. No hemoptysis. No pleurisy. White cell count of 14.6. Creatinine is at 1.05. The lactic acid level at 2.6. ProBNP level is 4250. The pro calcitonin level is still pending for now. The patient was given a dose of Rocephin and Zithromax in the ED. The patient has no focal neurological deficits. The patient has no chest pain. He has not required any pressors. Patient was reevaluated today on 12/07/19, patient remains in the ICU, presently on 6 L/m via nasal cannula, O2 saturations 97%. He was seen by cardiology, and his IV amiodarone was switched to oral amiodarone. Remains on Lasix for his pulmonary edema. Chest x-ray continues to show evidence of congestive heart failure. Underlying pneumonia is felt to be very unlikely. Patient is empirically on antibiotics, but he is mostly on diuretics, his WBC count is however elevated at 19.5, hemoglobin is 16.7. His electrolytes are normal renal functioning is a bit worse and I believe it is mostly cardiorenal his creatinine is 1.79 today. His BNP level was elevated over 4000, pro calcitonin is 0.05 Patient was reevaluated today on 12/08/19, remains in the ICU, he is on 6 L nasal cannula, O2 sats is 96%, remains in atrial fibrillation with a rate of 107. IV fluid is at KVO, chest x-ray this morning showed good sized right-sided pleural effusion and a ultrasound of the chest confirmed the finding. Proceeded to right-sided thoracentesis, I was able to drain and had a cc of fluid from the [facility] pleural space. Patient tolerated the procedure well. Although the ultrasound of the chest showed fluid on the left pleural space, the chest x-ray is not impressive for effusion on the left side. Hence I will not that the left side. Patient remains on diuretics, and he is in a negative balance. WBC count today is 20 hemoglobin is 15.4 lites are normal renal profile is improved BUN is 31 creatinine is 1.20 compared to 1.79 yesterday. Reevaluated today on 12/09/19, remains in the ICU, patient is feeling much better, breathing a lot easier, feels great, patient made a dramatic improvement since he had his right sided thoracentesis. Remains on oxygen at 6 L, O2 sats is 98%. His IV fluids at KVO. Remains in atrial fibrillation with controlled rate 73 per minute. Pleural effusion results are consistent with transudate, low protein and low LDH. His Lasix was switched to oral, and I have cleared him to be transferred to a monitor bed on selective if cleared by cardiology. His blood pressure medications are being adjusted mostly because of intermittently low blood pressure. Reevaluated today on 12/10/19, remains in the ICU as an overflow. Denies chest pain, denies any shortness of breath, his urine output is marginal, remains on Lasix, he is now on oral Lasix. Blood pressure is requiring midodrine, his atrial fibrillation seems to be under control. Patient remains marginal at best. Renal functioning is poor with BUN of 39 creatinine 1.56. WBC count is 18.1 hemoglobin is 14.1 patient remains empirically on antibiotics. The pleural effusion was definitely transudative/cardiogenic in nature 12/11/2019 patient is seen in follow-up. He is on 2 L of oxygen with a pulse ox 97%, pulse ox on room air was 87%, patient was placed back on oxygen. Some mild nausea, but no worsening dyspnea, he does get exertional dyspnea. No complaints of chest pain. No new chest x-ray today, yesterday's chest x-ray showed basilar effusions and associated atelectasis, fluid volume overload. Patient continues on oral Lasix currently at 20 mg twice daily, he is on empiric Invanz no form of Zosyn, he is on oral anticoagulation for atrial fibrillation, his rate is currently controlled. He is maintaining negative fluid balance. We'll obtain follow-up chest x-ray. No worsening peripheral edema, patient is status post right-sided thoracentesis a few days back and the pleural effusion was transudative/cardiogenic in nature, cytology was negative, and pleural fluid cultures were negative. The patient is seen today 12/12/2019 in follow-up on the selective care unit. He is currently awake and alert in no acute distress. Maintaining O2 saturation in the 90s on 2 L/m per nasal cannula. His been afebrile. Hemodynamically stable. Pleural fluid culture reveals no growth. Blood culture revealed no growth. White count 15.1. Hemoglobin 13.5. Sodium 135. Creatinine 1.19. Chest x-ray reveals chronic changes and mild cardiomegaly with small to moderate recurrent right pleural effusion. Stable bibasilar infiltrate/atelectasis. Currently on Lasix 20 mg by mouth twice a day. Continued on Zosyn. The patient is seen today 12/13/2019 and follow-up on the selective care unit. He is awake and alert in no acute distress. Resting fairly comfortably in bed. Maintaining O2 saturations in the 90s on room air. He's afebrile. Blood and pleural fluid cultures reveal no growth. White count 14.8. Hemoglobin 14.4. Sodium 134. Potassium 3.5. Creatinine 1.24. He has been transitioned to oral diuretics. Zosyn. Xarelto. Ultrasound of the chest revealed bilateral pleural effusions 5.8 cm on the right. 6.5 cm on the left. Objective - Vital Signs Vital signs: Vital Signs Temp 98.0 F 12/13/19 03:29 Pulse 72 12/13/19 11:57 Resp 16 12/13/19 11:57 BP 95/56 12/13/19 11:57 Pulse Ox 94 L 12/13/19 11:57 Intake & Output 12/12/19 12/13/19 12/13/19 18:59 06:59 18:59 Intake Total 365 100 240 Output Total 1003 950 2 Balance -638 -850 238 Weight 73 kg Intake: Intake, IV Titration 100 Amount Piperacillin-Tazobactam 3 100 .375 gm In Sodium Chloride 0.9% 100 ml @ 25 mls/hr IVPB Q12H COUNT INCLUDES THE [facility] Rx# :[id number] Oral 365 240 Output: Urine 1000 950 Stool 3 2 Other: Voiding Method Urinal Urinal Urinal # Voids 1 - Exam GENERAL EXAM: Alert, very pleasant, 69-year-old frail looking male patient, resting in bed, room air oxygen as pulse ox 94%, comfortable in no apparent distress. HEAD: Normocephalic/atraumatic. EYES: Normal reaction of pupils, equal size. Conjunctiva pink, sclera white. NOSE: Clear with pink turbinates. THROAT: No erythema or exudates. NECK: No masses, no JVD, no thyroid enlargement, no adenopathy. CHEST: No chest wall deformity. Symmetrical expansion. LUNGS: Equal air entry with crackles in bilateral bases right greater than left, diminished. CVS: Irregular rate and rhythm, normal S1 and S2, no gallops, no murmurs, no rubs ABDOMEN: Soft, nontender. No hepatosplenomegaly, normal bowel sounds, no guarding or rigidity. EXTREMITIES: No clubbing, no edema, no cyanosis, 2+ pulses and upper and lower extremities. MUSCULOSKELETAL: Muscle strength and tone normal. SPINE: No scoliosis or deformity SKIN: No rashes CENTRAL NERVOUS SYSTEM: Alert and oriented -3. No focal deficits, tone is normal in all 4 extremities. PSYCHIATRIC: Alert and oriented -3. Appropriate affect. Intact judgment and insight. - Labs CBC & Chem 7: 12/13/19 08:33 12/13/19 08:33 Labs: Abnormal Lab Results - Last 24 Hours (Table) 12/13/19 12/13/19 Range/Units 08:33 08:33 WBC 14.8 H (3.8-10.6) k/uL Neutrophils # 9.0 H (1.3-7.7) k/uL Monocytes # 1.6 H (0-1.0) k/uL Sodium 134 L (137-145) mmol/L Chloride 91 L (98-107) mmol/L Carbon Dioxide 33 H (22-30) mmol/L BUN 24 H (9-20) mg/dL Glucose 176 H (74-99) mg/dL Calcium 8.3 L (8.4-10.2) mg/dL Assessment and Plan Assessment: #1. Acute pulmonary edema secondary to an acute exacerbation of systolic congestive heart failure #2. Ischemic cardiomyopathy with previous AICD placement #3. Acute discharge of AICD 2 #4. History of multivessel coronary artery disease with previous IA and previous coronary artery stenting #5. History of tachycardia requiring cardiac ablation #6. Dyslipidemia #7. Atrial fibrillation with RVR, currently the rate is better controlled, patient is on amiodarone, and oral anticoagulation Xarelto #8. Bilateral pleural effusions, right greater than left, status post right- sided thoracentesis on 12/08/2019 with removal of 900 mL of fluid which was transudate/cardiogenic in nature, negative cytology and cultures. Recurrent with subsequent repeat right-sided thoracentesis on 12/13/2019 with another 750 MLS removed. Plan: The patient was seen and evaluated by Dr. Beaver Ultrasound reviewed. Repeat right-sided thoracentesis performed today with 750 MLS removed Follow-up chest x-ray Continue diuretics We'll continue to follow and make further recommendations based on his clinical status I, the cosigning physician, performed a history & physical examination of the patient. Lungs sounds with crackles in the posterior bases right greater than left, diminished. Maintaining good O2 saturations in the 90s on room air. I discussed the assessment and plan of care with my nurse practitioner, Edilia Malik. I attest to the above note as dictated by her.
[2019-12-13] MEDS: FUROSEMIDE 40 MG TAB PO SCH (17:01)
[2019-12-13] MEDS: RIVAROXABAN 20 MG TAB PO SCH (17:01)
[2019-12-13] MEDS: ATORVASTATIN 80 MG TAB PO SCH (20:11)
[2019-12-13] MEDS: SODIUM CHLORIDE 0.9% 1,000 ML IV SCH (20:11)
--- NOTE | 2019-12-13 22:28 | P.PN ---
Subjective Progress Note Date: 12/12/19 Principal diagnosis: -AICD firing 2, underlying rhythm of ventricular tachycardia This is a pleasant 69-year-old patient of Dr. Cheatham. Chronic stable medical conditions include coronary artery disease, hyperlipidemia, multiple MIs in the past, coronary stent, peptic ulcer disease, ischemic cardiomyopathy, previous V. tach ablation, atrial fibrillation,. Patient was driving home yesterday when he saw lights flashing and then his AICD kicked in twice. Presented to the ER. Admitted to the floor. Patient became short of breath. Had to be given Lasix and put on a BiPAP. Then transferred to the ICU. AICD interrogation did show V. tach. Patient put on IV amiodarone. This morning patient is feeling better. Daughter the bedside. Patient had been on eliquis previously. Because the co- pay was very high patient stopped taking it. Just last week he was started on Xarelto. Per cardiology and also had atrial fibrillation. Getting IV Lasix. Also had acute kidney injury likely prerenal and hepatorenal-better with IV Lasix. Right pleural effusion --900 cc of pleural fluid removed . 12/10-moved out of the ICU. Atrial flutter fibrillation rate controlled. Decre ased appetite. Sitting up in a chair. Tired. Oral Lasix 12/12/2019 Patient is currently in the skilled care unit. Awake alert and oriented x3. Currently on oxygen at 2 L via nasal cannula. Cultures have been negative so far. Chest x-ray showed chronic changes and mild cardiomegaly with small to moderate right pleural effusion showing continued interval progression or worsening. Stable bibasilar acute infiltrate and atelectasis Is noted. Patient is being continued Lasix 20 mg twice daily and is also on antibiotics in the form of Zosyn. Laboratory data showed WBC 15.1, hemoglobin 13.5 BUN 28 creatinine 1.19 Cardiology and pulmonary is on board. Current medications reviewed. Objective - Vital Signs Vital signs: Vital Signs Temp 97.8 F 12/12/19 20:00 Pulse 64 12/12/19 20:00 Resp 18 12/12/19 20:00 BP 105/58 12/12/19 20:00 Pulse Ox 98 12/12/19 20:00 Intake & Output 12/12/19 12/12/19 12/13/19 06:59 18:59 06:59 Intake Total 180 365 Output Total 200 1003 125 Balance -20 -638 -125 Weight 73.5 kg Intake: IV 80 Sodium Chloride 0.9% 1, 80 000 ml @ 20 mls/hr IV . Q24H [facility] Rx#:[id number] Intake, IV Titration 100 Amount Piperacillin-Tazobactam 3 100 .375 gm In Sodium Chloride 0.9% 100 ml @ 25 mls/hr IVPB Q12H [facility] Rx# :[id number] Oral 365 Output: Urine 200 1000 125 Stool 3 Other: Voiding Method Urinal Urinal Urinal # Voids 1 - Exam Physical examination: GENERAL: Sitting up in a chair, tired ORAL cavity: White patches EYES: Pupils equal. Conjunctiva normal. NECK: JVD not raised; masses not palpable. HEART: heart sounds irregular; no edema. LUNGS: Respiratory rate increased, decreased breath sounds. ABDOMEN: Soft, nontender, liver spleen not palpable, no masses palpable. PSYCH: Alert and oriented x3; mood and affect normal. - Labs CBC & Chem 7: 12/13/19 08:33 12/13/19 08:33 Labs: Abnormal Lab Results - Last 24 Hours (Table) 12/12/19 12/12/19 12/12/19 Range/Units 06:22 07:25 07:25 WBC 15.1 H (3.8-10.6) k/uL Sodium 135 L (137-145) mmol/L Carbon Dioxide 31 H (22-30) mmol/L BUN 28 H (9-20) mg/dL Glucose 112 H (74-99) mg/dL POC Glucose (mg/dL) 105 H (75-99) mg/dL Calcium 8.1 L (8.4-10.2) mg/dL Microbiology - Last 24 Hours (Table) 12/08/19 10:00 Gram Stain - Final Pleural Fluid Body Fluid Culture - Final 12/05/19 22:50 Blood Culture - Final Blood No Growth after 144 hours Assessment and Plan Assessment: INVESTIGATIONS, reviewed in the clinical context: Potassium 4 bun 39 creatinine 1.56 Previous testing White count 7.3 hemoglobin 17.1 INR 1.8 potassium 3. creatinine 1.17 Lactic acid 2. 6 repeat 2.4 Troponin I 0.035, 0.047 EKG tracing personally reviewed by [id number] tachycardia Chest x-ray film personally reviewed by me-pulmonary edema 2-D echocardiogram-EF 30-35%. Wall motion abnormalities. Moderate TR, Chest x-ray film-personally reviewed by me-right pleural effusion Pro-calcitonin 0.05 Assessment: -AICD firing 2, underlying rhythm of ventricular tachycardia -Coronary artery disease with prior history of stents -Acute congestive heart failure exacerbation from systolic dysfunction EF 30-35%- initially requiring BiPAP-improved -Acute hypoxic respiratory failure from pulmonary edema, POA -Moderate tricuspid regurgitation -Hyperlipidemia -Persistent atrial fibrillation/flutter-rate controlled -Chronic nicotine dependence patient active cigarette smoker -Acute kidney injury likely prerenal from diuretics and hepatorenal-new diagnosis-responding to IV Lasix -Right pleural effusion-status post thoracentesis-900 mL removed -Oral candidiasis -Troponin leak from hemodynamic mismatch. No clinical evidence of acute coronary syndrome. Plan: Patient is being continued on oxygen supplementation via nasal cannula. Continue Lasix 20 mg twice daily. Empirically on Zosyn. Pro-calcitonin 0.05. Pulmonary and cardiology is following. Discussed with patient. Time with Patient: Greater than 30
--- NOTE | 2019-12-13 22:31 | P.PN ---
Subjective Progress Note Date: 12/13/19 Principal diagnosis: -AICD firing 2, underlying rhythm of ventricular tachycardia This is a pleasant 69-year-old patient of Dr. Cheatham. Chronic stable medical conditions include coronary artery disease, hyperlipidemia, multiple MIs in the past, coronary stent, peptic ulcer disease, ischemic cardiomyopathy, previous V. tach ablation, atrial fibrillation,. Patient was driving home yesterday when he saw lights flashing and then his AICD kicked in twice. Presented to the ER. Admitted to the floor. Patient became short of breath. Had to be given Lasix and put on a BiPAP. Then transferred to the ICU. AICD interrogation did show V. tach. Patient put on IV amiodarone. This morning patient is feeling better. Daughter the bedside. Patient had been on eliquis previously. Because the co- pay was very high patient stopped taking it. Just last week he was started on Xarelto. Per cardiology and also had atrial fibrillation. Getting IV Lasix. Also had acute kidney injury likely prerenal and hepatorenal-better with IV Lasix. Right pleural effusion --900 cc of pleural fluid removed . 12/10-moved out of the ICU. Atrial flutter fibrillation rate controlled. Decre ased appetite. Sitting up in a chair. Tired. Oral Lasix 12/12/2019 Patient is currently in the skilled care unit. Awake alert and oriented x3. Currently on oxygen at 2 L via nasal cannula. Cultures have been negative so far. Chest x-ray showed chronic changes and mild cardiomegaly with small to moderate right pleural effusion showing continued interval progression or worsening. Stable bibasilar acute infiltrate and atelectasis Is noted. Patient is being continued Lasix 20 mg twice daily and is also on antibiotics in the form of Zosyn. Laboratory data showed WBC 15.1, hemoglobin 13.5 BUN 28 creatinine 1.19 Cardiology and pulmonary is on board. On 12/13/2019 Patient is currently sitting in bed comfortably. Status post thoracentesis today. Patient states that his breathing is better today. Continue oxygen therapy and gradually tapering down to room air. Currently on Lasix by mouth. Continue on empiric antibiotics in the form of Zosyn. Laboratory data showed WBC 14.8, hemoglobin 14.4 BUN 24 and creatinine 1.24 Pulmonary and cardiology is on board. Current medications reviewed. Objective - Vital Signs Vital signs: Vital Signs Temp 98.0 F 12/13/19 03:29 Pulse 72 12/13/19 16:00 Resp 16 12/13/19 16:00 BP 111/66 12/13/19 16:00 Pulse Ox 95 12/13/19 16:00 Intake & Output 12/13/19 12/13/19 12/14/19 06:59 18:59 06:59 Intake Total 100 1000 Output Total 950 578 Balance -850 422 Weight 73 kg Intake: Intake, IV Titration 100 100 Amount Piperacillin-Tazobactam 3 100 100 .375 gm In Sodium Chloride 0.9% 100 ml @ 25 mls/hr IVPB Q12H [facility] Rx# :[id number] Oral 900 Output: Urine 950 575 Stool 3 Other: Voiding Method Urinal Urinal # Voids 1 1 - Exam Physical examination: GENERAL: Sitting up in a chair,Awake alert and oriented x3 ORAL cavity: White patches EYES: Pupils equal. Conjunctiva normal. NECK: JVD not raised; masses not palpable. HEART: heart sounds irregular; no edema. LUNGS: Respiratory rate increased, Bibasilar coarse breath sounds. No rhonchi no wheezing.. ABDOMEN: Soft, nontender, liver spleen not palpable, no masses palpable. PSYCH: Alert and oriented x3; mood and affect normal. - Labs CBC & Chem 7: 12/13/19 08:33 12/13/19 08:33 Labs: Abnormal Lab Results - Last 24 Hours (Table) 12/13/19 12/13/19 Range/Units 08:33 08:33 WBC 14.8 H (3.8-10.6) k/uL Neutrophils # 9.0 H (1.3-7.7) k/uL Monocytes # 1.6 H (0-1.0) k/uL Sodium 134 L (137-145) mmol/L Chloride 91 L (98-107) mmol/L Carbon Dioxide 33 H (22-30) mmol/L BUN 24 H (9-20) mg/dL Glucose 176 H (74-99) mg/dL Calcium 8.3 L (8.4-10.2) mg/dL
--- NOTE | 2019-12-14 04:07 | PCN ---
PROCEDURE NOTE OPERATIVE REPORT: Right-sided thoracentesis. PREOPERATIVE DIAGNOSIS: Congestive heart failure and recurrent right-sided pleural effusion. POSTOPERATIVE DIAGNOSIS: Congestive heart failure and recurrent right-sided pleural effusion. ANESTHESIA USED: 2 mL of 1% lidocaine. PROCEDURE: The patient was placed in a sitting upright position, the area below the right scapula was prepared in a sterile fashion and drapes were applied. The area which was earlier localized by ultrasound guidance, was locally anesthetized with lidocaine. Then, at the same site, a 22-gauge needle was inserted, advanced into the pleural space, and the fluid was localized. Then a small incision was made at the same site, which is basically the 8th intercostal space and tip of the scapula. Advanced the needle until the fluid was obtained and then the catheter was advanced over the needle, and the needle was removed. Roughly 700 mL of the fluid was drained, slightly az[place] in color, not bloody, fluid was roughly 700 mL and not sent for any diagnostic studies since the patient had previous thoracenteses procedures done in the past. The procedure was well tolerated, no evidence of any immediate complications. Chest x-ray was ordered postoperatively and the chest x-ray showed complete resolution of the right-sided pleural effusion, and no evidence of any complications, no evidence of pneumothorax. MMODL / IJN: [id number] /
[2019-12-14] MEDS: PIPERACILLIN-TAZOBACTAM 3.375 GM in SODIUM CHLORIDE 0.9% 100 ML IVPB SCH (05:17)
[2019-12-14] MEDS: MIDODRINE 5 MG TAB PO SCH ×2 (06:35→11:38)
[2019-12-14 08:44] VITALS: RESP 16
[2019-12-14] MEDS: ASPIRIN 325 MG TAB PO SCH (08:46)
[2019-12-14] MEDS: NYSTATIN 100,000 UNIT/ML SUSP 500,000 UNIT/5 ML CUP PO SCH ×2 (08:46→10:55)
[2019-12-14] MEDS: AMIODARONE 200 MG TAB PO SCH (08:46)
[2019-12-14] MEDS: FUROSEMIDE 40 MG TAB PO SCH (08:46)
[2019-12-14] MEDS: FLUCONAZOLE 100 MG TAB PO SCH (08:46)
[2019-12-14] MEDS: METOPROLOL TARTRATE 25 MG TAB PO SCH (08:46)
[2019-12-14] MEDS: FAMOTIDINE 20 MG/2 ML VIAL IV SCH (08:46)
[2019-12-14 09:46] LABS: Basophils # (A) 0.1 k/uL (0-0.2); Basophils % (A) 1 %; Eosinophils # (A) 0.1 k/uL (0-0.7); Eosinophils % (A) 1 %; HCT 38.2 % (39.0-53.0); HGB 12.5 gm/dL (13.0-17.5); Lymphocytes % (A) 26 %; MCH 29.4 pg (25.0-35.0); MCHC 32.6 g/dL (31.0-37.0); MCV 90.1 fL (80.0-100.0); Mean Platelet Volume 9.3; Monocytes # (A) 1.4 k/uL (0-1.0); Monocytes % (A) 12 %; Neutrophils # (A) 6.9 k/uL (1.3-7.7); Neutrophils % (A) 58 %; Platelet Count 217 k/uL (150-450); RBC 4.23 m/uL (4.30-5.90); WBC 11.8 k/uL (3.8-10.6)
[2019-12-14 09:55] LABS: Calcium 7.9 mg/dL (8.4-10.2); Potassium 3.2 mmol/L (3.5-5.1)
--- NOTE | 2019-12-14 11:31 | P.PN ---
Subjective Progress Note Date: 12/14/19 This is a 69-year-old gentleman with history of coronary artery disease and prior coronary artery revascularization as well as severe ischemic cardiomyopathy and prior AICD who was admitted to the hospital after his AICD had discharged. The device was interrogated and revealed appropriate shocks. Patient was seen and examined on the telemetry unit this morning, blood pressure 126/60 heart rate in the 80s, complaining of some mild nausea this morning, overall he states he slept well. Denies any chest pain or palpitations, no dizziness. Blood pressure 108/60 with a heart rate in the 60s, 97% on 2 L of oxygen. Sodium 133, potassium 4.0, BUN 39, creatinine 1.5 magnesium 4.1. 12/14/2019 Patient was seen and examined this morning, he feels well, no complaints. Anticipating discharge today. Blood pressure 110/60 with a heart rate in the 70s, temperature 99.1, he is 95% on room air. White blood cell count 11.8, hemoglobin 12.5, platelet count 217. Sodium 131, potassium 3.2, BUN 25, creati nine 1.1. Objective - Vital Signs Vital signs: Vital Signs Temp 99.1 F 12/14/19 08:00 Pulse 78 12/14/19 08:00 Resp 16 12/14/19 08:00 BP 109/67 12/14/19 08:00 Pulse Ox 95 12/14/19 08:00 Intake & Output 12/13/19 12/14/19 12/14/19 18:59 06:59 18:59 Intake Total 1000 480 480 Output Total 578 500 200 Balance 422 -20 280 Weight 69.5 kg Intake: Intake, IV Titration 100 Amount Piperacillin-Tazobactam 3 100 .375 gm In Sodium Chloride 0.9% 100 ml @ 25 mls/hr IVPB Q12H [facility] Rx# :[id number] Oral 900 480 480 Output: Urine 575 500 200 Stool 3 Other: Voiding Method Urinal # Voids 1 1 1 - Exam PHYSICAL EXAMINATION: GENERAL: 69-year-old gentleman in no acute distress at the time of my examination HEENT: Head is atraumatic, normocephalic. Pupils equal, round. Sclera anicteric. Conjunctiva are clear. Mucous membranes of the mouth are moist. Neck is supple. There is no elevated jugular venous pressure. No carotid bruit is heard. HEART EXAMINATION: Heart S1 and S2 irregularly irregular CHEST EXAMINATION: Lungs reveal diminished air entry to bilateral bases. ABDOMEN: Soft, nontender. Bowel sounds are heard. No organomegaly noted. EXTREMITIES: 2+ peripheral pulses with no evidence of peripheral edema and no calf tenderness noted. NEUROLOGIC patient is awake, alert and oriented X3 . - Labs CBC & Chem 7: 12/14/19 09:09 12/14/19 09:09 Labs: Abnormal Lab Results - Last 24 Hours (Table) 12/14/19 12/14/19 Range/Units 09:09 09:09 WBC 11.8 H (3.8-10.6) k/uL RBC 4.23 L (4.30-5.90) m/uL Hgb 12.5 L (13.0-17.5) gm/dL Hct 38.2 L (39.0-53.0) % Monocytes # 1.4 H (0-1.0) k/uL Sodium 131 L (137-145) mmol/L Potassium 3.2 L (3.5-5.1) mmol/L Chloride 92 L (98-107) mmol/L Carbon Dioxide 32 H (22-30) mmol/L BUN 25 H (9-20) mg/dL Glucose 187 H (74-99) mg/dL Calcium 7.9 L (8.4-10.2) mg/dL Assessment and Plan Plan: Assessment and plan #1 AICD discharge #2 known severe ischemic cardiomyopathy #3 coronary artery disease with prior revascularization #4 paroxysmal atrial fibrillation #5 systolic congestive heart failure acute on chronic Plan From cardiology's perspective, we'll continue the patient on his current medications. Continue oral anticoagulation. He may be able to be discharged home today from our perspective. We'll make a follow-up appointment for him in the office post discharge. DNP note has been reviewed, I agree with a documented findings and plan of care. Patient was seen and examined.
[2019-12-14 12:03] VITALS: BP 90/64; PULSE 60; TEMP 98
[2019-12-14] MEDS ORDERED: Potassium Replacement Protocol 1 EACH MISC MISCELLANE PRN (12:16)
[2019-12-14] MEDS: POTASSIUM CHLORIDE ER 20 MEQ TAB.ER PO SCH ×3 (12:33→14:39)
--- NOTE | 2019-12-14 12:35 | P.DS ---
Providers Date of admission: 12/05/19 22:27 Attending physician: Vinicio Murillo Consults: 12/05/19 21:36 Consult Physician Routine Consulting Provider: Michael Cole Consult Reason/Comments: new onset afib Do you want consulting provider notified?: Yes 12/06/19 03:56 Consult Physician Routine Consulting Provider: Angie Batista Consult Reason/Comments: increase SOB Do you want consulting provider notified?: Yes, Notify in am 12/07/19 22:49 Consult Physician Routine Consulting Provider: Hira Benavidez Consult Reason/Comments: acute kidney injury Do you want consulting provider notified?: Yes [facility] Course: 69-year-old male was admitted for acute pulmonary edema and bilateral pleural effusions patient underwent acidosis of right-sided pleural effusions. Patient also has an AICD which was interrogated. Patient had about 900 mL on December 07 that was removed from the right side and about 7 50 mL fluid removed on December 12. Patient is presently on room air. Patient was started on Lasix 40 twice a day. Patient is cleared by cardiology and nephrology. If cleared by pulmonology patient will be discharged today. His potassium is low which will be replaced and patient will be discharged on potassium supplementation along with Lasix. Patient does have history of A. fib for which patient is on anti- coagulation. PHYSICAL EXAMINATION: GENERAL: The patient is alert and oriented x3, not in any acute distress. Well developed, well nourished. HEENT: Pupils are round and equally reacting to light. EOMI. No scleral icterus. No conjunctival pallor. Normocephalic, atraumatic. No pharyngeal erythema. No thyromegaly. CARDIOVASCULAR: S1 and S2 present. No murmurs, rubs, or gallops. PULMONARY: Chest is clear to auscultation, no wheezing or crackles. ABDOMEN: Soft, nontender, nondistended, normoactive bowel sounds. No palpable organomegaly. MUSCULOSKELETAL: No joint swelling or deformity. EXTREMITIES: No cyanosis, clubbing, or pedal edema. NEUROLOGICAL: Gross neurological examination did not reveal any focal deficits. SKIN: No rashes. -Acute pulmonary edema secondary to his heart failure exacerbation and patient is pleural effusions with removal of the pleural fluid on the right side as mentioned above pleural effusions secondary to heart failure -Ischemically myopathy with an AICD -Coronary artery disease -Atrial fibrillation presently rate controlled continue with anticoagulation. Patient will be discharged today in stable medical condition to home - Patient Condition at Discharge: Fair Plan - Discharge Summary Discharge Rx Participant: No New Discharge Prescriptions: New Amiodarone [Cordarone] 400 mg PO BID #60 tab Furosemide [Lasix] 40 mg PO BID@0900,1600 #60 tab Metoprolol Tartrate [Lopressor] 25 mg PO BID #60 tab Rivaroxaban [Xarelto] 20 mg PO W/SUPPER #30 tab Potassium Chloride ER [K-Dur 20] 20 meq PO BID #60 tab Continue Enalapril Maleate 2.5 mg PO HS Atorvastatin [Lipitor] 80 mg PO HS Aspirin EC [Ecotrin] 325 mg PO DAILY Discontinued Metoprolol Tartrate [Lopressor] 50 mg PO DAILY Xarelto Unknown Dose 1 tab PO BID Discharge Medication List Atorvastatin [Lipitor] 80 mg PO HS 11/27/13 [History] Enalapril Maleate 2.5 mg PO HS 11/27/13 [History] Aspirin EC [Ecotrin] 325 mg PO DAILY 12/05/19 [History] Amiodarone [Cordarone] 400 mg PO BID #60 tab 12/14/19 [Rx] Furosemide [Lasix] 40 mg PO BID@0900,1600 #60 tab 12/14/19 [Rx] Metoprolol Tartrate [Lopressor] 25 mg PO BID #60 tab 12/14/19 [Rx] Potassium Chloride ER [K-Dur 20] 20 meq PO BID #60 tab 12/14/19 [Rx] Rivaroxaban [Xarelto] 20 mg PO W/SUPPER #30 tab 12/14/19 [Rx] Follow up Appointment(s)/Referral(s): Erlinda Combs MD [STAFF PHYSICIAN] - 01/05/20 2:00 pm (Saturday) Lenard Cheatham MD [Primary Care Provider] - 12/16/19 9:45 am (Saturday) Sam Curry MD [STAFF PHYSICIAN] - 12/18/19 1:30 pm (Saturday) Ambulatory/Diagnostic Orders: Basic Metabolic Panel [LAB.AMB] Location: None Selected Patient Instructions/Handouts: Heart Failure (DC), A-fib (Atrial Fibrillation) (DC) Activity/Diet/Wound Care/Special Instructions: Karley Copay is $47 Discharge Disposition: HOME SELF-CARE
[2019-12-14 14:34] VITALS: BMI 22.6
--- NOTE | 2019-12-14 16:08 | P.PN ---
Subjective Progress Note Date: 12/14/19 Principal diagnosis: Acute hypoxic respiratory failure secondary to acute pulmonary edema, secondary to chronic systolic dysfunction This 69-year-old male patient has CAD with multivessel disease and multiple stents placed in the past, in addition to history of ischemic cardiomyopathy and the patient has an AICD in place. The patient has had previous VT ablation. He has also approximately atrial fibrillation. The patient was driving yesterday when he had his ileostomy discharge and this happened twice and the second one a few minutes later after the first shock. The patient denies having any chest pain. He was having progressive increased shortness of breath over the past 2 weeks. He was brought into the hospital. He was started on amiodarone drip and his current rhythm is A. fib. His chest x-ray showed pulmonary edema and there was increased infiltration of the right lung base more than the left. There was no evidence of any lung masses or tumors. There may be some small bilateral pleural effusions. The patient denies having any cough or sputum production. No hemoptysis. No pleurisy. White cell count of 14.6. Creatinine is at 1.05. The lactic acid level at 2.6. ProBNP level is 4250. The pro calcitonin level is still pending for now. The patient was given a dose of Rocephin and Zithromax in the ED. The patient has no focal neurological deficits. The patient has no chest pain. He has not required any pressors. Patient was reevaluated today on 12/07/19, patient remains in the ICU, presently on 6 L/m via nasal cannula, O2 saturations 97%. He was seen by cardiology, and his IV amiodarone was switched to oral amiodarone. Remains on Lasix for his pulmonary edema. Chest x-ray continues to show evidence of congestive heart failure. Underlying pneumonia is felt to be very unlikely. Patient is empirically on antibiotics, but he is mostly on diuretics, his WBC count is however elevated at 19.5, hemoglobin is 16.7. His electrolytes are normal renal functioning is a bit worse and I believe it is mostly cardiorenal his creatinine is 1.79 today. His BNP level was elevated over 4000, pro calcitonin is 0.05 Patient was reevaluated today on 12/08/19, remains in the ICU, he is on 6 L nasal cannula, O2 sats is 96%, remains in atrial fibrillation with a rate of 107. IV fluid is at KVO, chest x-ray this morning showed good sized right-sided pleural effusion and a ultrasound of the chest confirmed the finding. Proceeded to ri ght-sided thoracentesis, I was able to drain and had a cc of fluid from the right pleural space. Patient tolerated the procedure well. Although the ultrasound of the chest showed fluid on the left pleural space, the chest x-ray is not impressive for effusion on the left side. Hence I will not that the left side. Patient remains on diuretics, and he is in a negative balance. WBC count today is 20 hemoglobin is 15.4 lites are normal renal profile is improved BUN is 31 creatinine is 1.20 compared to 1.79 yesterday. Reevaluated today on 12/09/19, remains in the ICU, patient is feeling much be tter, breathing a lot easier, feels great, patient made a dramatic improvement since he had his right sided thoracentesis. Remains on oxygen at 6 L, O2 sats is 98%. His IV fluids at KVO. Remains in atrial fibrillation with controlled rate 73 per minute. Pleural effusion results are consistent with transudate, low protein and low LDH. His Lasix was switched to oral, and I have cleared him to be transferred to a monitor bed on selective if cleared by cardiology. His blood pressure medications are being adjusted mostly because of intermittently low blood pressure. Reevaluated today on 12/10/19, remains in the ICU as an overflow. Denies chest pain, denies any shortness of breath, his urine output is marginal, remains on Lasix, he is now on oral Lasix. Blood pressure is requiring midodrine, his atrial fibrillation seems to be under control. Patient remains marginal at best. Renal functioning is poor with BUN of 39 creatinine 1.56. WBC count is 18.1 hemoglobin is 14.1 patient remains empirically on antibiotics. The pleural effusion was definitely transudative/cardiogenic in nature 12/11/2019 patient is seen in follow-up. He is on 2 L of oxygen with a pulse ox 97%, pulse ox on room air was 87%, patient was placed back on oxygen. Some mild nausea, but no worsening dyspnea, he does get exertional dyspnea. No complaints of chest pain. No new chest x-ray today, yesterday's chest x-ray showed basilar effusions and associated atelectasis, fluid volume overload. Patient continues on oral Lasix currently at 20 mg twice daily, he is on empiric Invanz no form of Zosyn, he is on oral anticoagulation for atrial fibrillation, his rate is currently controlled. He is maintaining negative fluid balance. We'll obtain follow-up chest x-ray. No worsening peripheral edema, patient is status post right-sided thoracentesis a few days back and the pleural effusion was transuda tive/cardiogenic in nature, cytology was negative, and pleural fluid cultures were negative. On 12/14/2019 patient seen in follow-up on selective care unit, he is awake and alert, currently on room air, 94%, hemodynamically stable, breathing seems comfortable, still has cough with production of slightly blood-tinged sputum, lung sounds reveal some bibasilar crackles, no rhonchi or wheezing, no fever or chills. Patient is status post right-sided thoracentesis, and the pleural fluid analysis culture was negative. Urine cultures showed Staphylococcus epidermidis. Patient has been treated with Invanz and Zosyn. Pleural fluid analysis showed a transudate of cardiogenic nature of the pleural effusion. His last chest x-ray showed a small right-sided pleural effusion, no pneumothorax. Objective - Vital Signs Vital signs: Vital Signs Temp 98.0 F 12/14/19 12:00 Pulse 60 12/14/19 12:00 Resp 16 12/14/19 12:00 BP 90/64 12/14/19 12:00 Pulse Ox 94 L 12/14/19 12:00 Intake & Output 12/13/19 12/14/19 12/14/19 18:59 06:59 18:59 Intake Total 1000 480 480 Output Total 578 500 200 Balance 422 -20 280 Weight 69.5 kg 69.5 kg Intake: Intake, IV Titration 100 Amount Piperacillin-Tazobactam 3 100 .375 gm In Sodium Chloride 0.9% 100 ml @ 25 mls/hr IVPB Q12H [facility] Rx# :[id number] Oral 900 480 480 Output: Urine 575 500 200 Stool 3 Other: Voiding Method Urinal # Voids 1 1 1 - Exam GENERAL EXAM: Alert, very pleasant, 69-year-old frail looking white female, resting in bed, on room air, with a pulse ox of 94% comfortable in no apparent distress. HEAD: Normocephalic/atraumatic. EYES: Normal reaction of pupils, equal size. Conjunctiva pink, sclera white. NOSE: Clear with pink turbinates. THROAT: No erythema or exudates. NECK: No masses, no JVD, no thyroid enlargement, no adenopathy. CHEST: No chest wall deformity. Symmetrical expansion. LUNGS: Equal air entry with no crackles, wheeze, rhonchi or dullness. CVS: Irregular rate and rhythm, normal S1 and S2, no gallops, no murmurs, no rubs ABDOMEN: Soft, nontender. No hepatosplenomegaly, normal bowel sounds, no gua rding or rigidity. EXTREMITIES: No clubbing, no edema, no cyanosis, 2+ pulses and upper and lower extremities. MUSCULOSKELETAL: Muscle strength and tone normal. SPINE: No scoliosis or deformity SKIN: No rashes CENTRAL NERVOUS SYSTEM: Alert and oriented -3. No focal deficits, tone is normal in all 4 extremities. PSYCHIATRIC: Alert and oriented -3. Appropriate affect. Intact judgment and insight. - Labs CBC & Chem 7: 12/14/19 09:09 12/14/19 09:09 Labs: Abnormal Lab Results - Last 24 Hours (Table) 12/14/19 12/14/19 Range/Units 09:09 09:09 WBC 11.8 H (3.8-10.6) k/uL RBC 4.23 L (4.30-5.90) m/uL Hgb 12.5 L (13.0-17.5) gm/dL Hct 38.2 L (39.0-53.0) % Monocytes # 1.4 H (0-1.0) k/uL Sodium 131 L (137-145) mmol/L Potassium 3.2 L (3.5-5.1) mmol/L Chloride 92 L (98-107) mmol/L Carbon Dioxide 32 H (22-30) mmol/L BUN 25 H (9-20) mg/dL Glucose 187 H (74-99) mg/dL Calcium 7.9 L (8.4-10.2) mg/dL Assessment and Plan Plan: Assessment: #1. Acute pulmonary edema secondary to systolic congestive heart failure #2. Ischemic cardiomyopathy with previous AICD placement #3. Acute discharge of AICD 2 #4. History of multivessel coronary artery disease with previous MT and previous coronary artery stenting #5. History of tachycardia requiring cardiac ablation #6. Dyslipidemia #7. Atrial fibrillation with RVR, currently the rate is better controlled, patient is on amiodarone, and oral anticoagulation Xarelto #8. Bilateral pleural effusions, right greater than left, status post right-britt ed thoracentesis on 12/08/2019 with removal of 900 mL of fluid which was transferred dated/cardiogenic in nature, negative cytology and cultures. This was recurrent with subsequent repeat right-sided thoracentesis on 12/13/2019 with another 770 mL removed Plan: Patient is doing well, clinical stable, he is on room air, he status post right- sided thoracentesis 2, he's been diuresed, treated with antibiotics, improved, less chest x-ray only shows small right-sided pleural effusion, his breathing is improved, patient is being discharged home today. Follow-up with Dr. Beaver in the office in 7-10 days I performed a history & physical examination of the patient and discussed their management with my nurse practitioner, Nimco Drew. I reviewed the nurse practitioner's note and agree with the documented findings and plan of care. Lung sounds are positive for diminished breath sounds. The findings and the impression was discussed with the patient. I attest to the documentation by the nurse practitioner. Time with Patient: Less than 30
--- NOTE | 2019-12-14 16:22 | PN ---
PROGRESS NOTE Patient is seen for followup for acute kidney injury. Renal function has been very stable, with creatinine staying at about 1.1 mg/dL. Patient is maintained on Lasix, which has now been switched to p.o. He is also maintained on midodrine for ongoing low blood pressures. On examination today, blood pressure was 90/64, heart rate 60 per minute. He is afebrile. EXAMINATION OF THE HEART: S1 and S2. EXAMINATION OF LUNGS: Decreased breath sounds at bases. ABDOMEN: Soft, non-tender. Examination of lower extremities shows trace edema bilaterally. 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 Labs show sodium 131, potassium 3.2, chloride 92. CO2 is 32, BUN 25, creatinine 1.19, hemoglobin 12.5 g/dL. ASSESSMENT: 1. Acute kidney injury, cardiorenal, currently stable. 2. Small right pleural effusion. 3. Ischemic cardiomyopathy. 4. Paroxysmal atrial fibrillation. 5. Congestive heart failure, acute on top of chronic, mainly systolic. PLAN: Patient is stable for discharge. Follow up as outpatient. Continue midodrine for now secondary to ongoing hypotension. Once blood pressure is stable, we can discontinue the midodrine as outpatient. MMODL / IJN: [id number] /
[2019-12-14] MEDS ORDERED: FAMOTIDINE 20 MG TAB PO SCH (21:00)
--- NOTE | 2019-12-15 12:52 | CDI ---
Documentation Clarification Form Date: 12/15/2019 11:28:00 AM From: Stephany Real Phone: If you have a question about this query, please contact Nella Lindsey, Radiologic Technology Instructor at [phone] between 8am and 5pm. Admit Date: 12/05/2019 10:27:00 PM Patient Name: Gerber Obrien Visit Number: [id number] Discharge Date: 12/14/2019 03:16:00 PM ATTENTION: The Clinical Documentation Specialists (CDI) and [facility] Coding Staff appreciate your assistance in clarifying documentation. Please respond to the clarification below the line at the bottom and electronically sign. The CDI & [facility] Coding staff will review the response and follow-up if needed. Please note: Queries are made part of the Legal Health Record. If you have any questions, please contact the author of this message via ITS. Dr. Benavidez, [facility], Acute kidney injury mostly prerenal secondary to cardiorenal syndrome. Creatinine peaked at 1.79 on 12/06. This is documented in PN's 12/09, 12/10, 12/11, 12/12 and no documentation of CKD. Please clarify if patient had CKD and if so, the stage. History/Risk Factors: Pleural effusion due to A/C systolic CHF, cardiiorenal Current BUN/Cr/GFR:12/06 - BUN 22, Creat. 1.79, GFR down to 38 on 12/06 Treatment: Monitor renal function and urine output Consults: renal In order to capture the severity of condition, please clarify if patient has CKD and if so stage. CKD no CKD Chronic renal failure/Chronic Kidney disease (CKD) please stage (if known): CKD Stage 1 GFR >90 CKD Stage 2 GFR 60-89 CKD Stage 3 GFR 30-59 CKD Stage 4 GFR 15-29 CKD Stage 5 GFR <15 ESRD Other, please specify Unable to determine no ckd MTDD
== END 2019-12-14 15:16 | disposition home or self-care (01) | DRG 291 ==
LOC: EC 20:41 → 3SCARD 22:27 → 2SICU 12-06 04:05 → 3SCARD 12-10 18:31
PROVIDERS: ADMIT Hospitalist; ATTEND Hospitalist
PROC: 4B02XTZ Measurement of Cardiac Defibrillator, External Approach (ICD-10-PCS; 2019-12-06)
PROC: 5A09357 Assistance with Respiratory Ventilation, Less than 24 Consecutive Hours, Continuous Positive Airway Pressure (ICD-10-PCS; 2019-12-06)
PROC: 0W993ZX Drainage of Right Pleural Cavity, Percutaneous Approach, Diagnostic (ICD-10-PCS; principal; 2019-12-08)
PROC: 0W993ZZ Drainage of Right Pleural Cavity, Percutaneous Approach (ICD-10-PCS; 2019-12-13)
DX: I13.0 Hypertensive heart and chronic kidney disease with heart failure and stage 1 through stage 4 chronic kidney disease, or unspecified chronic kidney disease (principal); I50.23 Acute on chronic systolic (congestive) heart failure; J96.01 Acute respiratory failure with hypoxia; I47.2 Ventricular tachycardia; I48.19 Other persistent atrial fibrillation; I48.92 Unspecified atrial flutter; J91.8 Pleural effusion in other conditions classified elsewhere; B37.0 Candidal stomatitis; E87.2 Acidosis; J98.11 Atelectasis; N17.9 Acute kidney failure, unspecified; I27.20 Pulmonary hypertension, unspecified; I25.5 Ischemic cardiomyopathy; I25.2 Old myocardial infarction; D72.829 Elevated white blood cell count, unspecified; E78.5 Hyperlipidemia, unspecified; F17.210 Nicotine dependence, cigarettes, uncomplicated; I07.1 Rheumatic tricuspid insufficiency; I25.10 Atherosclerotic heart disease of native coronary artery without angina pectoris; Z87.11 Personal history of peptic ulcer disease; Z79.01 Long term (current) use of anticoagulants; Z79.82 Long term (current) use of aspirin; Z79.899 Other long term (current) drug therapy; Z95.5 Presence of coronary angioplasty implant and graft; Z95.810 Presence of automatic (implantable) cardiac defibrillator; Z60.2 Problems related to living alone; F32.9 Major depressive disorder, single episode, unspecified; Z45.02 Encounter for adjustment and management of automatic implantable cardiac defibrillator; R79.89 Other specified abnormal findings of blood chemistry
CPT/HCPCS: 36415; 71045; 76604; 80048; 80053; 81001; 82945; 83605; 83615; 83735; 83880; 84145; 84157; 84443; 84484; 85025; 85027; 85610; 85730; 87040; 87070; 87205; 88108; 88305; 89050; 93005; 93306; 94660; 96365; 96366; 96368; 96375; 96376; 99291

== ENCOUNTER 2020-02-16 10:09 | Day surgery (SDC) | payer MEDICARE ==
[2020-02-09 11:42] VITALS: BMI 23.1
[~2020-02-16 10:09] MED LIST: LACTATED RINGERS 1,000 ML IV SCH; LIDOCAINE 1% (10MG/ML) FOR IV START INTRADERMA PRN
[2020-02-16 10:52] VITALS: RESP 16; TEMP 96.8
[2020-02-16] MEDS ORDERED: MIDAZOLAM 2 MG/2 ML VIAL ONE (11:42)
[2020-02-16] MEDS ORDERED: PROPOFOL 10 MG/ML 20 ML VIAL IV ONE (11:42)
[2020-02-16] MEDS ORDERED: LIDOCAINE 1% INJ 10MG/ML (20 ML MDV) ONE (11:42)
[2020-02-16] MEDS ORDERED: fentaNYL (PF) 50 MCG/ML 2 ML AMP ONE (11:42)
--- NOTE | 2020-02-16 12:16 | P.PCN ---
Date of Procedure: 02/16/20 Description of Procedure: Brief history: Patient is a 70-year-old male presented for outpatient EGD and colonoscopy for evaluation of melena and anemia. Remote history of EGD and colonoscopy approximately 10 years ago. He is on anticoagulation therapy. He had been seen previously reported dark colored stool. He also reports unintentional weight loss. Procedure performed: Esophagogastroduodenoscopy with biopsy Colonoscopy with polypectomy Estimated blood loss: Minimal. Preoperative diagnosis: Melena, iron deficiency anemia Anesthesia: MAC Procedure: After informed consent was obtained from the patient was brought into the endoscopy unit and IV sedation was administered by anesthesia under continuous monitoring. Initially upper endoscopy was done. The Olympus GF 190 video endoscope was inserted into the mouth and esophagus intubated without any difficulty and was gradually advanced into the stomach and duodenum and carefully examined. The bulb and second part of the duodenum appeared normal, with biopsies taken to rule out celiac sprue. The scope was then withdrawn into the stomach adequately insufflated with air and upon careful examination the antrum and body, cardia and fundus appeared normal, except for some mild punctate erythema in the antrum and body suggestive of mild gastritis with biopsies taken. The scope was then withdrawn into the esophagus. The GE junction was located at 40 cm to the incisors and biopsied. It appeared regular with no erythema erosions or ulcerations. Rest of the esophagus appeared normal. Patient tolerated the procedure well. At this time the patient continued to remain sedation. Initial digital rectal examination was normal. Olympus CF 190 video colonoscope was then inserted into the rectum and gradually advanced to the cecum without any difficulty. Careful examination was performed as the scope was gradually being withdrawn. The prep was excellent. The cecum, ascending colon, transverse colon, descending colon, sigmoid colon and rectum appeared normal. Diminutive polyps measuring 2-3 mm in size removed from the hepatic flexure and sigmoid colon with cold forcep polypectomy, low-grade internal hemorrhoids noted. Retroflexion was performed in the rectum and no lesions were noted. Patient tolerated the procedure well. Impression: 1. Mild gastritis. Biopsies of the duodenum, antrum and body GE junction. 2. 2 diminutive polyps removed with cold forceps from the hepatic flexure and sigmoid colon. Low-grade internal hemorrhoids. Otherwise normal-appearing colon from rectum to cecum. Recommendations: Findings of this examination were discussed with the patient as well as and his family. Okay to resume diet. Okay to resume medication. Await pathology from biopsies and polypectomy. Recommend repeat colonoscopy in 7 years for screening or sooner if any signs or symptoms which weren't further evaluation develop.
[2020-02-16 12:32] VITALS: BP 112/79; PULSE 71
== END 2020-02-16 13:30 | disposition home or self-care (01) ==
LOC: ORWHC2ENDO 10:09
PROVIDERS: ATTEND Internal Medicine
DX: D12.3 Benign neoplasm of transverse colon (principal); K29.50 Unspecified chronic gastritis without bleeding; D50.9 Iron deficiency anemia, unspecified; K64.8 Other hemorrhoids; Z79.01 Long term (current) use of anticoagulants; I25.10 Atherosclerotic heart disease of native coronary artery without angina pectoris; I10 Essential (primary) hypertension; R63.4 Abnormal weight loss; I48.91 Unspecified atrial fibrillation; I25.2 Old myocardial infarction; E78.49 Other hyperlipidemia; J44.9 Chronic obstructive pulmonary disease, unspecified; Z87.891 Personal history of nicotine dependence; K21.9 Gastro-esophageal reflux disease without esophagitis; Z79.899 Other long term (current) drug therapy
CPT/HCPCS: 88305; 45380; 43239; J2250; J2001; J3010; J2704

== ENCOUNTER 2020-03-11 07:36 | Inpatient (IN) | payer MEDICARE ==
[2020-03-11] MEDS ORDERED: NITROGLYCERIN OINT 1 INCH/GM PACKET TOPICAL STA (08:09)
[2020-03-11] MEDS ORDERED: ASPIRIN 81 MG PO STA (08:09)
[2020-03-11] MEDS ORDERED: SODIUM CHLORIDE 0.9% 1,000 ML IV STA (08:09)
[2020-03-11 08:33] LABS: Anisocytosis Slight; Basophils # (A) 0.1 k/uL (0-0.2); Basophils % (A) 1 %; Eosinophils # (A) 0.1 k/uL (0-0.7); Eosinophils % (A) 1 %; HCT 43.8 % (39.0-53.0); HGB 13.6 gm/dL (13.0-17.5); Hypochromasia Slight; Lymphocytes # (A) 2.7 k/uL (1.0-4.8); Lymphocytes % (A) 21 %; MCH 26.6 pg (25.0-35.0); MCV 85.9 fL (80.0-100.0); Mean Platelet Volume 8.7; Monocytes # (A) 0.9 k/uL (0-1.0); Monocytes % (A) 7 %; Neutrophils # (A) 8.6 k/uL (1.3-7.7); Neutrophils % (A) 68 %; Platelet Count 328 k/uL (150-450); Poikilocytosis Slight; WBC 12.6 k/uL (3.8-10.6)
[2020-03-11 08:34] LABS: Albumin 4.2 g/dL (3.5-5.0); Calcium 9.4 mg/dL (8.4-10.2); Magnesium 1.8 mg/dL (1.6-2.3); Potassium 3.7 mmol/L (3.5-5.1); Total Bilirubin 1.4 mg/dL (0.2-1.3); Total Protein 7.9 g/dL (6.3-8.2)
[2020-03-11 08:35] LABS: INR 1.6 (<1.2); Partial Thromboplastin Time 33.8 sec (22.0-30.0); Prothrombin Time 15.3 sec (9.0-12.0)
--- NOTE | 2020-03-11 08:54 | ED ---
General Adult HPI - General Chief complaint: Chest Pain Stated complaint: Chest Pain, abdominal pain,vomiting Time Seen by Provider: 03/11/20 07:40 Source: patient, RN notes reviewed, old records reviewed Mode of arrival: ambulatory Limitations: no limitations - History of Present Illness Initial comments: This is a 70-year-old male who presents emergency Department complaining of chest pain. Patient states this started at 2:30 this morning and it followed with dry heaving and eventually vomiting. Patient states currently he is no longer nauseated. Patient states he has a history of 3 heart attacks and 7 stents. Patient also specifically complaints. Patient also has high blood pressure and high cholesterol. Patient states he had no radiation of this pain patient denies any difficulty breathing first breath per patient denies any abdominal pain. Patient denies any headache patient denies numbness weakness. Patient has lightheadedness or dizziness. Patient denies any recent fever chills or cough per patient denies any swelling to the legs or calf tenderness. - Related Data Home Medications Medication Instructions Recorded Confirmed Atorvastatin [Lipitor] 80 mg PO HS 11/27/13 02/16/20 Enalapril Maleate 2.5 mg PO HS 11/27/13 02/16/20 Amiodarone [Cordarone] 200 mg PO DAILY 02/09/20 02/16/20 Furosemide [Lasix] 20 mg PO DAILY 02/09/20 02/16/20 Metoprolol Succinate (ER) [Toprol 100 mg PO DAILY 02/09/20 02/16/20 Xl] Omeprazole [PriLOSEC] 40 mg PO DAILY 02/09/20 02/16/20 Spironolactone [Aldactone] 50 mg PO DAILY 02/09/20 02/16/20 Previous Rx's Medication Instructions Recorded Rivaroxaban [Xarelto] 20 mg PO W/SUPPER #30 tab 12/14/19 Allergies Allergy/AdvReac Type Severity Reaction Status Date / Time No Known Allergies Allergy Verified 03/11/20 07:46 Review of Systems ROS Statement: Those systems with pertinent positive or pertinent negative responses have been documented in the HPI. ROS Other: All systems not noted in ROS Statement are negative. Past Medical History Past Medical History: Atrial Fibrillation, Coronary Artery Disease (CAD), Hyperlipidemia, Hypertension, Myocardial Infarction (CT), Pneumonia Additional Past Medical History / Comment(s): X3 CT'S, ULCER YEARS AGO, bradycardia Last Myocardial Infarction Date:: 2004 History of Any Multi-Drug Resistant Organisms: None Reported Past Surgical History: AICD, Cardiac Ablation, Heart Catheterization With Stent, Orthopedic Surgery, Pacemaker Additional Past Surgical History / Comment(s): CARDIOVERSION, HEART STENTS X7, cardiac ablation x 2 in the past and again om 12-05-15, rt wrist surgery after injury Past Anesthesia/Blood Transfusion Reactions: No Reported Reaction Additional Past Anesthesia/Blood Transfusion Reaction / Comment(s): NEVER HAS SOARES D GENERAL ANESTHESIA Date of Last Stent Placement:: 2004 Type of Cardiac Device: AICD Device Placement Date:: 2015 Past Psychological History: No Psychological Hx Reported Smoking Status: Former smoker Past Alcohol Use History: None Reported Past Drug Use History: None Reported - Past Family History Father Additional Family Medical History / Comment(s): DAD HAD PACER BUT NO OTHER HX KNOWN Mother Family Medical History: No Reported History Additional Family Medical History / Comment(s): pt stated does'nt know medical hx on parents. General Exam - General Exam Comments Initial Comments: GENERAL: Patient is well-developed and well-nourished. Patient is nontoxic and well- hydrated and is in mild distress. ENT: Neck is soft and supple. No significant lymphadenopathy is noted. Oropharynx is clear. Moist mucous membranes. Neck has full range of motion without eliciting any pain. EYES: The sclera were anicteric and conjunctiva were pink and moist. Extraocular movements were intact and pupils were equal round and reactive to light. Eyelids were unremarkable. PULMONARY: Unlabored respirations. Good breath sounds bilaterally. No audible rales rhonchi or wheezing was noted. CARDIOVASCULAR: There is a regular rate and rhythm without any murmurs gallops or rubs. ABDOMEN: Soft and nontender with normal bowel sounds. SKIN: Skin is clear with no lesions or rashes and otherwise unremarkable. NEUROLOGIC: Patient is alert and oriented x3. Cranial nerves II through XII are grossly intact. Motor and sensory are also intact. Normal speech, volume and content. Symmetrical smile. MUSCULOSKELETAL: Normal extremities with adequate strength and full range of motion. No lower extremity swelling or edema. No calf tenderness. LYMPHATICS: No significant lymphadenopathy is noted PSYCHIATRIC: Normal psychiatric evaluation. Limitations: no limitations Course Vital Signs 03/11/20 03/11/20 07:40 08:00 Temperature 98 F Pulse Rate 76 79 Respiratory 18 18 Rate Blood Pressure 121/77 107/82 O2 Sat by Pulse 97 92 L Oximetry Medical Decision Making - Medical Decision Making EKG shows atrial fibrillation with a left bundle branch block. Rate is 84 bpm QRS is 176 QT interval is 496 QTC is 586. Chest x-ray shows pulmonary edema Patient received Lasix. I spoke with sounds physician's and they agreed to admit the patient I admitted the patient I wrote admitting orders. I started the patient on heparin and continued Lasix on the floor. I consult to cardiology. - Lab Data Result diagrams: 03/11/20 08:16 03/11/20 08:16 Lab Results 03/11/20 03/11/20 03/11/20 Range/Units 08:16 08:16 08:16 WBC 12.6 H (3.8-10.6) k/uL RBC 5.10 (4.30-5.90) m/uL Hgb 13.6 (13.0-17.5) gm/dL Hct 43.8 (39.0-53.0) % MCV 85.9 (80.0-100.0) fL MCH 26.6 (25.0-35.0) pg MCHC 31.0 (31.0-37.0) g/dL RDW 17.0 H (11.5-15.5) % Plt Count 328 (150-450) k/uL MPV 8.7 Neutrophils % 68 % Lymphocytes % 21 % Monocytes % 7 % Eosinophils % 1 % Basophils % 1 % Neutrophils # 8.6 H (1.3-7.7) k/uL Lymphocytes # 2.7 (1.0-4.8) k/uL Monocytes # 0.9 (0-1.0) k/uL Eosinophils # 0.1 (0-0.7) k/uL Basophils # 0.1 (0-0.2) k/uL Hypochromasia Slight Poikilocytosis Slight Anisocytosis Slight PT 15.3 H (9.0-12.0) sec INR 1.6 H (<1.2) APTT 33.8 H (22.0-30.0) sec Sodium 138 (137-145) mmol/L Potassium 3.7 (3.5-5.1) mmol/L Chloride 98 (98-107) mmol/L Carbon Dioxide 29 (22-30) mmol/L Anion Gap 11 mmol/L BUN 9 (9-20) mg/dL Creatinine 1.08 (0.66-1.25) mg/dL Est GFR (CKD-EPI)AfAm 80 (>60 ml/min/1.73 sqM) Est GFR (CKD-EPI)NonAf 69 (>60 ml/min/1.73 sqM) Glucose 162 H (74-99) mg/dL Calcium 9.4 (8.4-10.2) mg/dL Magnesium 1.8 (1.6-2.3) mg/dL Total Bilirubin 1.4 H (0.2-1.3) mg/dL AST 21 (17-59) U/L ALT 13 (4-49) U/L Alkaline Phosphatase 169 H (38-126) U/L Troponin I (0.000-0.034) ng/mL Total Protein 7.9 (6.3-8.2) g/dL Albumin 4.2 (3.5-5.0) g/dL Amylase 67 (30-110) U/L Lipase 50 (23-300) U/L 03/11/20 Range/Units 08:16 WBC (3.8-10.6) k/uL RBC (4.30-5.90) m/uL Hgb (13.0-17.5) gm/dL Hct (39.0-53.0) % MCV (80.0-100.0) fL MCH (25.0-35.0) pg MCHC (31.0-37.0) g/dL RDW (11.5-15.5) % Plt Count (150-450) k/uL MPV Neutrophils % % Lymphocytes % % Monocytes % % Eosinophils % % Basophils % % Neutrophils # (1.3-7.7) k/uL Lymphocytes # (1.0-4.8) k/uL Monocytes # (0-1.0) k/uL Eosinophils # (0-0.7) k/uL Basophils # (0-0.2) k/uL Hypochromasia Poikilocytosis Anisocytosis PT (9.0-12.0) sec INR (<1.2) APTT (22.0-30.0) sec Sodium (137-145) mmol/L Potassium (3.5-5.1) mmol/L Chloride (98-107) mmol/L Carbon Dioxide (22-30) mmol/L Anion Gap mmol/L BUN (9-20) mg/dL Creatinine (0.66-1.25) mg/dL Est GFR (CKD-EPI)AfAm (>60 ml/min/1.73 sqM) Est GFR (CKD-EPI)NonAf (>60 ml/min/1.73 sqM) Glucose (74-99) mg/dL Calcium (8.4-10.2) mg/dL Magnesium (1.6-2.3) mg/dL Total Bilirubin (0.2-1.3) mg/dL AST (17-59) U/L ALT (4-49) U/L Alkaline Phosphatase (38-126) U/L Troponin I <0.012 (0.000-0.034) ng/mL Total Protein (6.3-8.2) g/dL Albumin (3.5-5.0) g/dL Amylase (30-110) U/L Lipase (23-300) U/L Critical Care Time Critical Care Time: Yes Total Critical Care Time: 35 Disposition Clinical Impression: Pulmonary edema, Unstable angina Disposition: ADMITTED IP TO THIS HOSP Referrals: Lenard Cheatham MD [Primary Care Provider] - 1-2 days Time of Disposition: 09:37
--- NOTE | 2020-03-11 09:18 | XR ---
EXAM: XR Chest, 2 Views CLINICAL HISTORY: Chest pain TECHNIQUE: Frontal and lateral views of the chest. COMPARISON: 12/13/19 FINDINGS: Lungs: Moderate pulmonary edema. No definite airspace consolidation. Probable atelectasis seen in the right lung base. Pleural space: Small bilateral pleural effusions, right greater than left. Heart: No cardiomegaly. Cardiac pacer/AICD hardware again seen with a single lead in the right ventricle. Mediastinum: No mediastinal widening or shift. Bones/joints: No acute osseous abnormality. IMPRESSION: Moderate pulmonary edema with pleural effusions. Findings likely associated with cardiac dysfunction or hypervolemia. No definite airspace consolidation. Probable right basilar atelectasis.
[2020-03-11] MEDS ORDERED: FUROSEMIDE 10 MG/ML 2 ML VIAL IV STA (09:35)
[2020-03-11] MEDS ORDERED: HEPARIN SODIUM,PORCINE 5,000 UNIT/ML 1 ML VIAL IV ONE (10:27)
[2020-03-11] MEDS: HEPARIN SOD,PORK IN 0.45% NACL 25,000 UNIT in 0.45% NACL 1 250ML.BAG IV SCH (10:36)
--- NOTE | 2020-03-11 12:33 | P.HPIM ---
History of Present Illness H&P Date: 03/11/20 Chief Complaint: Chest pain This is a 70-year-old male with very complex past medical history noted below significant for ischemic cardiomyopathy/coronary artery disease with multiple stent placements in the past who presented to the emergency room with chest pain. Patient said that he woke up from his sleep around 2:45 in the morning with severe chest pain in the middle of his chest. He is rating his pain is 11 out of 10 in severity. There was no radiation. Patient reports some shortness of breath that significant nausea/dry heaves. He vomited once. He was aleksandr rned and came to the emergency room for further evaluation. In the ER, 12-lead EKG showed rate controlled atrial fibrillation but a very hard to interpret EKG for acute findings of ischemia. Initial troponin was negative. Patient was admitted to the hospital for further evaluation. He was started on IV heparin drip. He is currently chest pain-free at the time of my evaluation. Awaiting cardiology to see him. Review of Systems Review of system: 14 points review of systems were obtained and were negative except to what were mentioned in the HPI. Past Medical History Past Medical History: Atrial Fibrillation, Coronary Artery Disease (CAD), Hyperlipidemia, Hypertension, Myocardial Infarction (PR), Pneumonia Additional Past Medical History / Comment(s): X3 PR'S, ULCER YEARS AGO, bradycardia Last Myocardial Infarction Date:: 2004 History of Any Multi-Drug Resistant Organisms: None Reported Past Surgical History: AICD, Cardiac Ablation, Heart Catheterization With Stent, Orthopedic Surgery, Pacemaker Additional Past Surgical History / Comment(s): CARDIOVERSION, HEART STENTS X7, cardiac ablation x 2 in the past and again om 12-05-15, rt wrist surgery after injury Past Anesthesia/Blood Transfusion Reactions: No Reported Reaction Additional Past Anesthesia/Blood Transfusion Reaction / Comment(s): NEVER HAS HAD GENERAL ANESTHESIA Date of Last Stent Placement:: 2004 Type of Cardiac Device: AICD Device Placement Date:: 2015 Past Psychological History: No Psychological Hx Reported Additional Psychological History / Comment(s): occ deprssion but denies any suicidal ideations and no hoplessness Smoking Status: Former smoker Past Alcohol Use History: None Reported Additional Past Alcohol Use History / Comment(s): STARTED SMOKING AT AGE 10, smokes half a pack a day quit 12/05 Past Drug Use History: None Reported - Past Family History Father Additional Family Medical History / Comment(s): DAD HAD PACER BUT NO OTHER HX KNOWN Mother Family Medical History: No Reported History Additional Family Medical History / Comment(s): pt stated does'nt know medical hx on parents. Medications and Allergies Home Medications Medication Instructions Recorded Confirmed Type Atorvastatin [Lipitor] 80 mg PO HS 11/27/13 03/11/20 History Enalapril Maleate 2.5 mg PO HS 11/27/13 03/11/20 History Rivaroxaban [Xarelto] 20 mg PO W/SUPPER #30 tab 12/14/19 03/11/20 Rx Amiodarone [Cordarone] 200 mg PO DAILY 02/09/20 03/11/20 History Furosemide [Lasix] 20 mg PO DAILY 02/09/20 03/11/20 History Omeprazole [PriLOSEC] 40 mg PO DAILY 02/09/20 03/11/20 History Spironolactone [Aldactone] 50 mg PO DAILY 02/09/20 03/11/20 History Metoprolol Succinate (ER) [Toprol 25 mg PO DAILY 03/11/20 03/11/20 History Xl] Allergies Allergy/AdvReac Type Severity Reaction Status Date / Time No Known Allergies Allergy Verified 03/11/20 09:37 Physical Exam Vitals: Vital Signs Temp Pulse Resp BP Pulse Ox 03/11/20 10:43 73 18 112/62 98 03/11/20 09:36 71 16 116/76 94 L 03/11/20 08:00 79 18 107/82 92 L 03/11/20 07:40 98 F 76 18 121/77 97 Intake and Output 03/10/20 03/11/20 03/11/20 22:59 06:59 14:59 Other: Weight 64.864 kg General: The patient is awake and alert, in no distress Eye: there is normal conjunctiva bilaterally. Neck: The neck is supple, there is no JVD. Cardiovascular: Normal S1-S2, no S3-S4, no murmurs. Respiratory: Lungs clear to auscultation bilaterally Gastrointestinal: Abdomen is soft, nontender Musculoskeletal: There is no pedal edema. Neurological:. Speech is normal. Skin: Skin is warm and dry Results CBC & Chem 7: 03/11/20 08:16 03/11/20 08:16 Labs: Abnormal Lab Results - Last 24 Hours (Table) 03/11/20 03/11/20 03/11/20 Range/Units 08:16 08:16 08:16 WBC 12.6 H (3.8-10.6) k/uL RDW 17.0 H (11.5-15.5) % Neutrophils # 8.6 H (1.3-7.7) k/uL PT 15.3 H (9.0-12.0) sec INR 1.6 H (<1.2) APTT 33.8 H (22.0-30.0) sec Glucose 162 H (74-99) mg/dL Total Bilirubin 1.4 H (0.2-1.3) mg/dL Alkaline Phosphatase 169 H (38-126) U/L Thrombosis Risk Factor Assmnt - Choose All That Apply Each Factor Represents 1 point: Acute PR Each Risk Factor Represents 2 Points: Age 61-74 years Thrombosis Risk Factor Assessment Total Risk Factor Score: 3 Thrombosis Risk Factor Assessment Level: Moderate Risk Assessment and Plan Assessment: This is a 70-year-old male with complex past medical history noted below who presented to the emergency room with chest pain. Patient was evaluated in the ER and admitted to the hospital for further management of his medical problems noted below. 1. Chest pain, with typical and atypical features. 12 leads EKG in the emergency room showed rate controlled A. fib with no acute ischemic findings even though the EKG was very hard to interpret. Initial troponin was negative. We'll continue telemetry monitoring. Trend troponin. Started on IV heparin drip by ER staff. Cardiology consulted for further evaluation. 2. Chronic atrial fibrillation on anticoagulation with Xarelto at home. Heart rate well controlled. 3. Ischemic cardiomyopathy with most recent echocardiogram in November of this year showing ejection fraction of 30-35%. Status post ICD 4. Chronic systolic heart failure with mild exacerbation: Chest x-ray showed moderate pulmonary edema. Patient denies any significant shortness of breath. No lower extremity edema. I would obtain BNP as it was not done in the ER. Started on IV Lasix by ER staff will continue. Daily weights. 5. Recent hospitalization in November of this year for AICD discharge, may consider device interrogation during this admission awaiting cardiology 6. Hyperlipidemia on Lipitor The patient is admitted with an anticipated greater than 2 midnight stay for evaluation of the medical problems noted above Discussed with: Patient and nursing staff Anticipated discharge date: To be determined based on clinical course Anticipated discharge place: home A total of 45 minutes was spent on the care of this complex patient more than 50% of the time was spent in counseling and care coordination.
[2020-03-11 12:37] VITALS: BMI 21.1
[2020-03-11] MEDS: FUROSEMIDE 10 MG/ML 4 ML VIAL IV SCH ×2 (14:46→23:50)
[2020-03-11] MEDS: METOPROLOL SUCCINATE (ER) 25 MG TAB.ER.24H PO SCH (14:47)
[2020-03-11] MEDS: ONDANSETRON 4 MG/2 ML VIAL IVP PRN (15:40)
[2020-03-11] MEDS: ATORVASTATIN 80 MG TAB PO SCH (22:17)
[2020-03-11] MEDS: lisinopriL 5 MG TAB PO SCH (22:17)
[2020-03-12] MEDS: PANTOPRAZOLE 40 MG TABLET PO SCH (06:23)
[2020-03-12] MEDS: FUROSEMIDE 10 MG/ML 4 ML VIAL IV SCH ×2 (08:43→16:50)
[2020-03-12] MEDS: AMIODARONE 200 MG TAB PO SCH (08:43)
[2020-03-12 08:46] LABS: Anisocytosis Slight; Basophils # (A) 0.1 k/uL (0-0.2); Basophils % (A) 1 %; Eosinophils # (A) 0.1 k/uL (0-0.7); Eosinophils % (A) 1 %; HCT 38.3 % (39.0-53.0); HGB 12.4 gm/dL (13.0-17.5); Hypochromasia Moderate; Lymphocytes # (A) 3.3 k/uL (1.0-4.8); Lymphocytes % (A) 29 %; MCH 28.1 pg (25.0-35.0); MCHC 32.4 g/dL (31.0-37.0); MCV 86.8 fL (80.0-100.0); Mean Platelet Volume 8.2; Monocytes # (A) 0.9 k/uL (0-1.0); Monocytes % (A) 8 %; Neutrophils # (A) 6.8 k/uL (1.3-7.7); Neutrophils % (A) 59 %; Platelet Count 283 k/uL (150-450); RBC 4.42 m/uL (4.30-5.90); RDW 16.8 % (11.5-15.5); WBC 11.5 k/uL (3.8-10.6)
[2020-03-12 08:48] LABS: Calcium 8.4 mg/dL (8.4-10.2); Magnesium 1.6 mg/dL (1.6-2.3); Potassium 3.8 mmol/L (3.5-5.1)
[2020-03-12] MEDS: METOPROLOL SUCCINATE (ER) 25 MG TAB.ER.24H PO SCH (08:49)
[2020-03-12] MEDS: ASPIRIN 81 MG PO SCH (08:49)
[2020-03-12] MEDS ORDERED: SPIRONOLACTONE 25 MG TAB PO SCH (09:00)
[2020-03-12] MEDS ORDERED: ASPIRIN 325 MG TAB PO SCH (09:00)
[2020-03-12 09:08] LABS: Poikilocytosis (M) Present
[2020-03-12] MEDS ORDERED: ALPRAZolam 0.25 MG TAB PO PRN (11:42)
[2020-03-12] MEDS ORDERED: ALPRAZolam 0.5 MG TAB PO PRN (11:42)
[2020-03-12] MEDS ORDERED: NITROGLYCERIN SL TABS 0.4 MG TAB SUBLINGUAL PRN (11:42)
--- NOTE | 2020-03-12 11:42 | P.CRDCN ---
History of Present Illness Consult date: 03/12/20 History of present illness: CHIEF COMPLAINT: Chest pain HISTORY OF PRESENT ILLNESS: This is a 70-year-old male with a past medical history significant for heart failure, atrial fibrillation, cardiac ablation, AICD placement, hyperlipidemia, ischemic cardiomyopathy, and coronary artery disease with multivessel stenting. Patient follows in the office with Dr. Curry. We have been asked to see the patient in consultation for chest pain. Patient states yesterday he began having pain near the bottom of his sternum. He also reports having some nausea and dry heaves. He denies any radiation of the pain. He reports shortness of breath which is at his baseline. He states the symptoms felt similar to when he had a second heart attack so he began to worry and came to the hospital for further evaluation. Patient reports having dark stools for the past few months since beginning Xarelto. He is unable to take Eliquis secondary to the cost. However his hemoglobin has remained stable. At the time of examination this morning, the patient denies having any chest pain or pressure. The patient was also found to be in congestive heart failure on admission and was started on IV Lasix. DIAGNOSTICS: EKG reveals atrial fibrillation, left bundle branch, heart rate 84. Chest xray moderate pulmonary edema and pleural effusions Laboratory data: The CBC 11.5. Hemoglobin 12.4. Platelet count 283. Sodium 134. Potassium 3.8. BUN 11. Creatinine 1.17. Troponin negative 2. BNP 8110. Current home cardiac medications include Aldactone 50 g daily, Xarelto 20 mg daily, metoprolol 25 mg daily, Lasix 20 mg daily, enalapril 2.5 mg daily, Lipitor 80 mg daily, and amiodarone 200 mg daily Echocardiogram completed in November 2019 revealed ejection fraction 30-35% REVIEW OF SYSTEMS: At the time of my exam: CONSTITUTIONAL: Denies fever or chills. HEENT: Denies blurred vision, vision changes, or eye pain. Denies hemoptysis CARDIOVASCULAR: Denies chest pain, orthopnea, PND or palpitations RESPIRATORY: No shortness of breath. GASTROINTESTINAL: Denies abdominal pain. Denies nausea or vomiting. HEMATOLOGIC: Denies bleeding disorders. GENITOURINARY: Denies any blood in urine. SKIN: Denies pruitis. Denies rash. PHYSICAL EXAM: VITAL SIGNS: Reviewed. GENERAL: Well-developed in no acute distress. HEENT: Head is normocephalic. Pupils are equal, round. Sclerae anicteric. Mucous membranes of the mouth are moist. Neck supple. No JVD or thyromegaly LUNGS: Respirations even and unlabored. Lungs diminished with crackles to the bases. HEART: Irregular rate and rhythm. S1 and S2 heard. ABDOMEN: Soft. Nondistended. Nontender. EXTREMITIES: Normal range of motion. No clubbing or cyanosis. Peripheral pulses intact. Trace bilateral lower extremity edema NEUROLOGIC: Awake and alert. Oriented x 3. ASSESSMENT: Unstable angina Acute exacerbation of chronic systolic congestive heart failure, EF 3035% Coronary artery disease with previous multivessel stenting (7 stents per patient) Paroxysmal atrial fibrillation, on long-term anticoagulation with Xarelto History of ischemic cardiomyopathy, status post ICD placement History of ventricular tachycardia History of cardiac ablation Hyperlipidemia Former nicotine dependence PLAN: Continue to trend troponins Obtain 2D echo to assess cardiac structure and function Continue IV lasix Monitor kidney function Daily weights Accurate I&O Resume home cardiac medications Decrease Aldactone 25 mg daily Continue IV heparin. Hold Xarelto Patient to undergo cardiac catheterization on Saturday with Dr. Curry Nurse practitioner note has been reviewed by physician. Signing provider agrees with the documented findings, assessment, and plan of care. Past Medical History Past Medical History: Atrial Fibrillation, Coronary Artery Disease (CAD), Hyperlipidemia, Hypertension, Myocardial Infarction (HI), Pneumonia Additional Past Medical History / Comment(s): X3 HI'S, ULCER YEARS AGO, bradycardia Last Myocardial Infarction Date:: 2004 History of Any Multi-Drug Resistant Organisms: None Reported Past Surgical History: AICD, Cardiac Ablation, Heart Catheterization With Stent, Orthopedic Surgery, Pacemaker Additional Past Surgical History / Comment(s): CARDIOVERSION, HEART STENTS X7, cardiac ablation x 2 in the past and again om 12-05-15, rt wrist surgery after injury Past Anesthesia/Blood Transfusion Reactions: No Reported Reaction Additional Past Anesthesia/Blood Transfusion Reaction / Comment(s): NEVER HAS HAD GENERAL ANESTHESIA Date of Last Stent Placement:: 2004 Type of Cardiac Device: AICD Device Placement Date:: 2015 Past Psychological History: No Psychological Hx Reported Additional Psychological History / Comment(s): occ deprssion but denies any suicidal ideations and no hoplessness Smoking Status: Former smoker Past Alcohol Use History: None Reported Additional Past Alcohol Use History / Comment(s): STARTED SMOKING AT AGE 10, smokes half a pack a day quit 12/05 Past Drug Use History: None Reported - Past Family History Father Additional Family Medical History / Comment(s): DAD HAD PACER BUT NO OTHER HX KNOWN Mother Family Medical History: No Reported History Additional Family Medical History / Comment(s): pt stated does'nt know medical hx on parents. Medications and Allergies Home Medications Medication Instructions Recorded Confirmed Type Atorvastatin [Lipitor] 80 mg PO HS 11/27/13 03/11/20 History Enalapril Maleate 2.5 mg PO HS 11/27/13 03/11/20 History Rivaroxaban [Xarelto] 20 mg PO W/SUPPER #30 tab 12/14/19 03/11/20 Rx Amiodarone [Cordarone] 200 mg PO DAILY 02/09/20 03/11/20 History Furosemide [Lasix] 20 mg PO DAILY 02/09/20 03/11/20 History Omeprazole [PriLOSEC] 40 mg PO DAILY 02/09/20 03/11/20 History Spironolactone [Aldactone] 50 mg PO DAILY 02/09/20 03/11/20 History Metoprolol Succinate (ER) [Toprol 25 mg PO DAILY 03/11/20 03/11/20 History Xl] Allergies Allergy/AdvReac Type Severity Reaction Status Date / Time No Known Allergies Allergy Verified 03/11/20 09:37 Physical Exam Vitals: Vital Signs Temp Pulse Resp BP Pulse Ox 03/12/20 09:39 97 03/12/20 08:00 79 17 03/12/20 07:50 97.9 F 79 17 87/56 95 03/12/20 04:00 62 18 77/49 96 03/12/20 01:46 75 18 03/11/20 23:59 75 18 91/58 98 03/11/20 20:15 98.2 F 70 18 98/65 94 L 03/11/20 16:00 98.1 F 67 18 97/57 97 03/11/20 12:00 98.4 F 77 18 97/57 96 Intake and Output 03/11/20 03/12/20 03/12/20 22:59 06:59 14:59 Intake Total 63.44 34.542 240 Output Total 300 475 Balance 63.44 -265.458 -235 Intake: Intake, IV Titration 63.44 34.542 Amount Heparin Sod,Pork in 0.45% 63.44 34.542 NaCl 25,000 unit In 0.45 % NaCl 1 250ml.bag @ 12 UNITS/KG/HR 7.784 mls/hr IV .Q24H [facility] Rx#: [id number] Oral 240 Output: Urine 300 475 Other: Voiding Method Toilet Toilet Urinal Urinal Results 03/12/20 07:53 03/12/20 07:53 Cardiac Enzymes 03/12/20 Range/Units 07:53 Troponin I <0.012 (0.000-0.034) ng/mL Coagulation 03/11/20 03/12/20 03/12/20 Range/Units 18:13 00:55 07:53 APTT 154.4 H* 73.6 H 54.8 H (22.0-30.0) sec CBC 03/12/20 Range/Units 07:53 WBC 11.5 H (3.8-10.6) k/uL RBC 4.42 (4.30-5.90) m/uL Hgb 12.4 L (13.0-17.5) gm/dL Hct 38.3 L (39.0-53.0) % Plt Count 283 (150-450) k/uL Comprehensive Metabolic Panel 03/12/20 Range/Units 07:53 Sodium 134 L (137-145) mmol/L Potassium 3.8 (3.5-5.1) mmol/L Chloride 98 (98-107) mmol/L Carbon Dioxide 29 (22-30) mmol/L BUN 11 (9-20) mg/dL Creatinine 1.17 (0.66-1.25) mg/dL Glucose 169 H (74-99) mg/dL Calcium 8.4 (8.4-10.2) mg/dL Current Medications Generic Name Dose Route Start Last Admin Trade Name Freq PRN Reason Stop Dose Admin Amiodarone HCl 200 mg 03/12/20 09:00 03/12/20 08:43 Amiodarone 200 Mg Tab PO 200 mg DAILY [facility] Administration Aspirin 81 mg 03/12/20 09:00 03/12/20 08:49 Aspirin 81 Mg PO 81 mg DAILY [facility] Administration Atorvastatin Calcium 80 mg 03/11/20 21:00 03/11/20 22:17 Atorvastatin 80 Mg Tab PO 80 mg HS [facility] Administration Furosemide 40 mg 03/11/20 16:00 03/12/20 08:43 Furosemide 10 Mg/Ml 4 Ml Vial IV 40 mg Q8HR [facility] Administration Heparin Sodium/Sodium Chloride 250 mls @ 7.784 mls/hr 03/11/20 10:30 03/12/20 01:40 25,000 unit/ Sodium Chloride IV 7 units/kg/hr .Q24H [facility] 4.54 mls/hr Titration Protocol 12 UNITS/KG/HR Lisinopril 5 mg 03/11/20 21:00 03/11/20 22:17 Lisinopril 5 Mg Tab PO 5 mg HS [facility] Administration Metoprolol Succinate 25 mg 03/11/20 12:45 03/12/20 08:49 Metoprolol Succinate (Er) 25 Mg Tab.Er.24h PO Not Given DAILY [facility] Ondansetron HCl 4 mg 03/11/20 14:51 03/11/20 15:40 Ondansetron 4 Mg/2 Ml Vial IVP 4 mg Q6HR PRN Administration Nausea And Vomiting Pantoprazole Sodium 40 mg 03/12/20 07:30 03/12/20 06:23 Pantoprazole 40 Mg Tablet PO 40 mg [id number] [facility] Administration Spironolactone 25 mg 03/13/20 09:00 Spironolactone 25 Mg Tab PO DAILY [facility] Intake and Output 03/11/20 03/12/20 03/12/20 22:59 06:59 14:59 Intake Total 63.44 34.542 240 Output Total 300 475 Balance 63.44 -265.458 -235 Intake: Intake, IV Titration 63.44 34.542 Amount Heparin Sod,Pork in 0.45% 63.44 34.542 NaCl 25,000 unit In 0.45 % NaCl 1 250ml.bag @ 12 UNITS/KG/HR 7.784 mls/hr IV .Q24H [facility] Rx#: [id number] Oral 240 Output: Urine 300 475 Other: Voiding Method Toilet Toilet Urinal Urinal 03/12/20 07:53 03/12/20 07:53
--- NOTE | 2020-03-12 15:17 | ECHOF ---
Referral Reason:LV function, chest pain MEASUREMENTS -------- HEIGHT: 175.3 cm WEIGHT: 64.9 kg BP: 87/56 RVIDd: 4.2 cm (< 3.3) IVSd: 1.2 cm (0.6 - 1.1) LVIDd: 5.3 cm (3.9 - 5.3) LVPWd: 1.1 cm (0.6 - 1.1) IVSs: 1.6 cm LVIDs: 3.6 cm LVPWs: 1.6 cm LA Diam: 5.0 cm (2.7 - 3.8) Ao Diam: 2.6 cm (2.0 - 3.7) AV Cusp: 1.7 cm (1.5 - 2.6) RAP: 5.00 mmHg RVSP: 47.62 mmHg FINDINGS -------- Atrial fibrillation. This was a technically difficult study with suboptimal apical views. The left ventricular size is normal. There is mild concentric left ventricular hypertrophy. Overa ll left ventricular systolic function is moderately impaired with, an EF between 35 - 40 %. The right ventricle is moderately enlarged. The left atrium is moderately dilated. The right atrial size is normal. Interatrial and interventricular septum intact. The aortic valve is trileaflet and appears structurally normal. There is no evidence of aortic regu rgitation. There is no evidence of aortic stenosis. The mitral valve leaflets are moderately thickened. There appears to be severe posteriorly directed mitral regurgitation with posterior mitral leaflet tethering and vena contracta appears to be 0.7cm. Would recommend AKILAH to further classify if clinically indiacted. Moderate to severe tricuspid regurgitation present. There is moderate pulmonary hypertension. The right ventricular systolic pressure, as measured by Doppler, is 47.62mmHg. There is no pulmonic regurgitation present. The aortic root size is normal. IVC Not well visulized. There is no pericardial effusion. Large Pleural Effusion. CONCLUSIONS -------- 1. The left ventricular size is normal. 2. There is mild concentric left ventricular hypertrophy. 3. Overall left ventricular systolic function is moderately impaired with, an EF between 35 - 40 %. 4. The right ventricle is moderately enlarged. 5. The left atrium is moderately dilated. 6. The mitral valve leaflets are moderately thickened. 7. There appears to be severe posteriorly directed mitral regurgitation with posterior mitral leaflet tethering and vena contracta appears to be 0.7cm. Would recommend AKILAH to further classify if clinic ally indiacted. 8. Moderate to severe tricuspid regurgitation present. 9. There is moderate pulmonary hypertension. 10. The right ventricular systolic pressure, as measured by Doppler, is 47.62mmHg. SPRING FORGER: Fawn Terry RDCS
--- NOTE | 2020-03-12 18:42 | P.PN ---
Subjective Progress Note Date: 03/12/20 (delayed charting seen at 1000) Principal diagnosis: chest pain Patient is a 70 YO CM with a hx of [place] X 3 with ischemic cardiomyopathy, A fib, HTN, and HLD who presented to the ER with complaints of chest pain. In the ER he underwent extensive evaluation. EKG showed rate controlled atrial fibrillation, initial troponin was negative. He was started on IV heparin, aspirin, and was admitted for further evaluation. Cardiology was consulted. Repeat troponin was negative. Patient seen and examined at bedside. He denies any chest pain, shortness breath, nausea, or vomiting. He states that over the last month he has had some increasing shortness of breath with orthopnea. General:Non toxic, no distress, appears at stated age Derm: warm, dry Head: atraumatic, normocephalic, symmetric Eyes: EOMI, no lid lag, anicteric sclera Mouth: no lip lesion, mucus membranes moist Cardiovascular: S1S2 reg, no murmur, positive posterior tibial pulse bilateral, Lungs: Crackles bilateral, no rhonchi, no rales , no accessory muscle use Abdominal: soft, nontender to palpation, no guarding, no appreciable organomegaly Ext: no gross muscle atrophy, trace edema, no contractures Neuro: CN II-XI grossly intact, no focal neuro deficits Psych: Alert, oriented, appropriate affect Chest pain -Acute ischemic event has been ruled out -Repeat troponin negative -Await echocardiogram -Cardiology recommendations -Continue aspirin, heparin drip, statin, and beta nyla - cardiac cath on 03/[address] Curry Ischemic cardiomyopathy with EF 30-35% S/P ICD, mild exacerabtion of systolic CHF - IV lasix, Aldactone - BB, ACEI - Strict I and O - Daily weights Chronic A fib - on xarlto which has been held with heparin gtt - tele - Betablocker, Amio HLD - Lipitor HTN, controlled - continue current meds - add parameters as BP low normal. Hx ventricular tachycardia - s/p ablation DVT prophylaxis: Heparin gtt Discussed with: patient, nursing, cardio Anticipated discharge: 2-[address]: home A total of 35 minutes was spent on the care of this complex patient more than 50% of the time was spent in counseling and care coordination. Objective - Vital Signs Vital signs: Vital Signs Temp 98.5 F 03/12/20 16:00 Pulse 75 12/26/20 16:00 Resp 18 03/12/20 16:00 BP 92/54 03/12/20 16:00 Pulse Ox 96 03/12/20 16:00 Intake & Output 03/11/20 03/12/20 03/12/20 18:59 06:59 18:59 Intake Total 63.44 34.542 420 Output Total 300 575 Balance 63.44 -265.458 -155 Weight 64.864 kg Intake: Intake, IV Titration 63.44 34.542 Amount Heparin Sod,Pork in 0.45% 63.44 34.542 NaCl 25,000 unit In 0.45 % NaCl 1 250ml.bag @ 12 UNITS/KG/HR 7.784 mls/hr IV .Q24H [facility] Rx#: [id number] Oral 420 Output: Urine 300 575 Other: Voiding Method Toilet Toilet Toilet Urinal Urinal Urinal - Labs CBC & Chem 7: 03/12/20 07:53 03/12/20 07:53 Labs: Abnormal Lab Results - Last 24 Hours (Table) 03/11/20 03/12/20 03/12/20 Range/Units 18:13 00:55 07:53 WBC 11.5 H (3.8-10.6) k/uL Hgb 12.4 L (13.0-17.5) gm/dL Hct 38.3 L (39.0-53.0) % RDW 16.8 H (11.5-15.5) % APTT 154.4 H* 73.6 H (22.0-30.0) sec Sodium (137-145) mmol/L Glucose (74-99) mg/dL 03/12/20 03/12/20 Range/Units 07:53 07:53 WBC (3.8-10.6) k/uL Hgb (13.0-17.5) gm/dL Hct (39.0-53.0) % RDW (11.5-15.5) % APTT 54.8 H (22.0-30.0) sec Sodium 134 L (137-145) mmol/L Glucose 169 H (74-99) mg/dL
[2020-03-12] MEDS: HEPARIN SOD,PORK IN 0.45% NACL 25,000 UNIT in 0.45% NACL 1 250ML.BAG IV SCH (20:30)
[2020-03-12] MEDS: ONDANSETRON 4 MG/2 ML VIAL IVP PRN (20:30)
[2020-03-12] MEDS: ATORVASTATIN 80 MG TAB PO SCH (20:32)
[2020-03-12] MEDS: lisinopriL 5 MG TAB PO SCH (20:32)
[2020-03-13] MEDS: FUROSEMIDE 10 MG/ML 4 ML VIAL IV SCH ×2 (00:08→08:53)
[2020-03-13] MEDS: PANTOPRAZOLE 40 MG TABLET PO SCH (06:32)
[2020-03-13] MEDS: METOPROLOL SUCCINATE (ER) 25 MG TAB.ER.24H PO SCH (08:50)
[2020-03-13] MEDS: AMIODARONE 200 MG TAB PO SCH (08:53)
[2020-03-13] MEDS: ASPIRIN 81 MG PO SCH (08:53)
[2020-03-13] MEDS ORDERED: SPIRONOLACTONE 25 MG TAB PO SCH (09:00)
[2020-03-13 09:38] LABS: Anisocytosis Slight; HCT 35.3 % (39.0-53.0); HGB 11.7 gm/dL (13.0-17.5); Hypochromasia Slight; MCH 28.3 pg (25.0-35.0); MCHC 33.2 g/dL (31.0-37.0); MCV 85.3 fL (80.0-100.0); Mean Platelet Volume 8.3; Platelet Count 236 k/uL (150-450); RBC 4.13 m/uL (4.30-5.90); RDW 16.7 % (11.5-15.5); WBC 10.3 k/uL (3.8-10.6)
[2020-03-13 09:53] LABS: Potassium 3.7 mmol/L (3.5-5.1)
[2020-03-13 09:54] LABS: Calcium 8.4 mg/dL (8.4-10.2)
--- NOTE | 2020-03-13 12:33 | P.PN ---
Subjective Progress Note Date: 03/13/20 CHIEF COMPLAINT: Chest pain HISTORY OF PRESENT ILLNESS: 03/12/2020 This is a 70-year-old male with a past medical history significant for heart failure, atrial fibrillation, cardiac ablation, AICD placement, hyperlipidemia, ischemic cardiomyopathy, and coronary artery disease with multivessel stenting. Patient follows in the office with Dr. Curry. We have been asked to see the patient in consultation for chest pain. Patient states yesterday he began havi ng pain near the bottom of his sternum. He also reports having some nausea and dry heaves. He denies any radiation of the pain. He reports shortness of breath which is at his baseline. He states the symptoms felt similar to when he had a second heart attack so he began to worry and came to the hospital for further evaluation. Patient reports having dark stools for the past few months since beginning Xarelto. He is unable to take Eliquis secondary to the cost. However his hemoglobin has remained stable. At the time of examination this morning, the patient denies having any chest pain or pressure. The patient was also found to be in congestive heart failure on admission and was started on IV Lasix. EKG reveals atrial fibrillation, left bundle branch, heart rate 84. Echocardiogram completed in November 2019 revealed ejection fraction 30-35% 03/13/2020 Patient examined this morning at bedside. He denies chest pain or pressure. He reports mild shortness of breath but states it is at his baseline. Telemetry reveals atrial fibrillation with controlled rate. Echocardiogram completed revealed ejection fraction 35-40% Patient remains on IV Lasix. Creatinine increased today to 1.34, from 1.17. PHYSICAL EXAM: VITAL SIGNS: Reviewed. GENERAL: Well-developed in no acute distress. HEENT: Head is normocephalic. Pupils are equal, round. Sclerae anicteric. Mucous membranes of the mouth are moist. Neck supple. No JVD or thyromegaly LUNGS: Respirations even and unlabored. Lungs diminished. HEART: Irregular rate and rhythm. S1 and S2 heard. ABDOMEN: Soft. Nondistended. Nontender. EXTREMITIES: Normal range of motion. No clubbing or cyanosis. Peripheral pulses intact. No lower extremity edema NEUROLOGIC: Awake and alert. Oriented x 3. ASSESSMENT: Unstable angina Acute exacerbation of chronic systolic congestive heart failure, EF 35-40% Coronary artery disease with previous multivessel stenting (7 stents per patient) Paroxysmal atrial fibrillation, on long-term anticoagulation with Xarelto History of ischemic cardiomyopathy, status post ICD placement History of ventricular tachycardia History of cardiac ablation Hyperlipidemia Former nicotine dependence PLAN: Discontinue IV Lasix. Begin oral Lasix 40 mg twice a day Monitor kidney function Daily weights Accurate I&O Continue IV heparin. Hold Xarelto Patient to undergo cardiac catheterization on Saturday with Dr. Curry Nurse practitioner note has been reviewed by physician. Signing provider agrees with the documented findings, assessment, and plan of care. Objective - Vital Signs Vital signs: Vital Signs Temp 97.9 F 03/13/20 08:00 Pulse 70 03/13/20 08:00 Resp 18 03/13/20 08:00 BP 93/60 03/13/20 08:00 Pulse Ox 96 03/13/20 08:00 Intake & Output 03/12/20 03/13/20 03/13/20 18:59 06:59 18:59 Intake Total 600 560.503 180 Output Total 575 750 200 Balance 25 -189.497 -20 Intake: Intake, IV Titration 85.503 Amount Heparin Sod,Pork in 0.45% 85.503 NaCl 25,000 unit In 0.45 % NaCl 1 250ml.bag @ 12 UNITS/KG/HR 7.784 mls/hr IV .Q24H [facility] Rx#: [id number] Oral 600 475 180 Output: Urine 575 750 200 Other: Voiding Method Toilet Toilet Toilet Urinal Urinal Urinal # Voids 1 - Labs CBC & Chem 7: 03/13/20 09:01 03/13/20 09:01 Labs: Abnormal Lab Results - Last 24 Hours (Table) 03/13/20 03/13/20 03/13/20 Range/Units 09:01 09:01 09:01 RBC 4.13 L (4.30-5.90) m/uL Hgb 11.7 L (13.0-17.5) gm/dL Hct 35.3 L (39.0-53.0) % RDW 16.7 H (11.5-15.5) % APTT 66.2 H (22.0-30.0) sec Sodium 133 L (137-145) mmol/L Chloride 97 L (98-107) mmol/L Creatinine 1.34 H (0.66-1.25) mg/dL Glucose 127 H (74-99) mg/dL
[2020-03-13] MEDS ORDERED: SODIUM CHLORIDE 0.9% 1,000 ML in EMPTY BAG 1 BAG IV ONE (16:00)
[2020-03-13] MEDS: HEPARIN SOD,PORK IN 0.45% NACL 25,000 UNIT in 0.45% NACL 1 250ML.BAG IV SCH (17:01)
[2020-03-13] MEDS: FUROSEMIDE 40 MG TAB PO SCH (17:01)
--- NOTE | 2020-03-13 18:23 | P.PN ---
Subjective Progress Note Date: 03/13/20 (delayed charting seen at 0945) Principal diagnosis: chest pain Patient is a 70 YO CM with a hx of [place] X 3 with ischemic cardiomyopathy, A fib, HTN, and HLD who presented to the ER with complaints of chest pain. In the ER he underwent extensive evaluation. EKG showed rate controlled atrial fibrillation, initial troponin was negative. He was started on IV heparin, aspirin, and was admitted for further evaluation. Cardiology was consulted. Repeat troponin was negative. Plan is for cath on 03/14. Patient seen and examined at bedside. No chest pain, No shortness of breath, no nausea, no vomiting, no diarrhea. General: Non toxic, no distress, appears at stated age Derm: warm, dry Head: atraumatic, normocephalic, symmetric Eyes: EOMI, no lid lag, anicteric sclera Mouth: no lip lesion, mucus membranes moist Cardiovascular: S1S2 reg, no murmur, positive posterior tibial pulse bilateral, Lungs: Crackles bilateral, no rhonchi, no rales , no accessory muscle use Abdominal: soft, nontender to palpation, no guarding, no appreciable organomegaly Ext: no gross muscle atrophy, trace edema, no contractures Neuro: CN II-XI grossly intact, no focal neuro deficits Psych: Alert, oriented, appropriate affect Chest pain -Acute ischemic event has been ruled out -Repeat troponin negative -Await echocardiogram -Cardiology recommendations -Continue aspirin, heparin drip, statin, and beta nyla - cardiac cath on 03/[address] Antoinette SOUSA - Transition Lasix to oral, hold lisinopril, hold aldactone - Avoid additional nephrotoxic agents - repeat Cr in AM Ischemic cardiomyopathy with EF 35-50% S/P ICD, mild exacerbation of systolic CHF - IV lasix changed to oral, Aldactone stopped, lisinopril on hold - BB, ACEI - Strict I and O - Daily weights Chronic A fib - on xarlto which has been held with heparin gtt - tele - Betablocker, Amio HLD - Lipitor HTN, controlled - continue current meds - add parameters as BP low normal. Hx ventricular tachycardia - s/p ablation DVT prophylaxis: Heparin gtt Discussed with: patient, nursing, cardio Anticipated discharge: 2-[address]: home A total of 35 minutes was spent on the care of this complex patient more than 50% of the time was spent in counseling and care coordination. Objective - Vital Signs Vital signs: Vital Signs Temp 98.1 F 03/13/20 12:00 Pulse 73 03/13/20 13:26 Resp 18 03/13/20 13:26 BP 85/52 03/13/20 12:00 Pulse Ox 95 03/13/20 12:00 Intake & Output 03/12/20 03/13/20 03/13/20 18:59 06:59 18:59 Intake Total 600 560.503 688.542 Output Total 575 750 400 Balance 25 -189.497 288.542 Intake: Intake, IV Titration 85.503 88.542 Amount Heparin Sod,Pork in 0.45% 85.503 88.542 NaCl 25,000 unit In 0.45 % NaCl 1 250ml.bag @ 12 UNITS/KG/HR 7.784 mls/hr IV .Q24H [facility] [place] Rx#: [id number] Oral 600 475 600 Output: Urine 575 750 400 Other: Voiding Method Toilet Toilet Toilet Urinal Urinal Urinal # Voids 1 - Labs CBC & Chem 7: 03/13/20 09:01 03/13/20 09:01 Labs: Abnormal Lab Results - Last 24 Hours (Table) 03/13/20 03/13/20 03/13/20 Range/Units 09:01 09:01 09:01 RBC 4.13 L (4.30-5.90) m/uL Hgb 11.7 L (13.0-17.5) gm/dL Hct 35.3 L (39.0-53.0) % RDW 16.7 H (11.5-15.5) % APTT 66.2 H (22.0-30.0) sec Sodium 133 L (137-145) mmol/L Chloride 97 L (98-107) mmol/L Creatinine 1.34 H (0.66-1.25) mg/dL Glucose 127 H (74-99) mg/dL
[2020-03-13] MEDS: ATORVASTATIN 80 MG TAB PO SCH (19:56)
[2020-03-13] MEDS ORDERED: HEPARIN SODIUM,PORCINE 5,000 UNIT/ML 1 ML VIAL IV PRN (21:11)
[2020-03-14 03:00] LABS: Anisocytosis Slight; HCT 36.7 % (39.0-53.0); HGB 11.6 gm/dL (13.0-17.5); Hypochromasia Slight; MCH 27.1 pg (25.0-35.0); MCHC 31.7 g/dL (31.0-37.0); MCV 85.4 fL (80.0-100.0); Mean Platelet Volume 8.6; Platelet Count 258 k/uL (150-450); RDW 16.8 % (11.5-15.5); WBC 11.6 k/uL (3.8-10.6)
[2020-03-14] MEDS ORDERED: SODIUM CHLORIDE 0.9% 1,000 ML IV ONE ×2 (03:06→07:57)
[2020-03-14] MEDS ORDERED: MAG HYDROX/AL HYDROX/SIMETH 30 ML CUP PO STA (03:21)
[2020-03-14 03:32] LABS: Calcium 8.4 mg/dL (8.4-10.2); Potassium 3.7 mmol/L (3.5-5.1)
[2020-03-14] MEDS ORDERED: ASPIRIN 325 MG TAB PO ONE (06:00)
[2020-03-14] MEDS ORDERED: ATORVASTATIN 80 MG TAB PO ONE (06:00)
[2020-03-14] MEDS: PANTOPRAZOLE 40 MG TABLET PO SCH (06:45)
[2020-03-14] MEDS ORDERED: MIDAZOLAM 2 MG/2 ML VIAL IVP ONE (07:56)
[2020-03-14] MEDS ORDERED: fentaNYL (PF) 50 MCG/ML 2 ML AMP IV ONE (07:56)
[2020-03-14] MEDS ORDERED: LIDOCAINE 1% INJ 10MG/ML (20 ML MDV) SQ ONE (07:59)
[2020-03-14] MEDS ORDERED: RX INFO: IV CONTRAST WAS GIVEN 1 EACH MISC MISCELLANE PRN (08:21)
[2020-03-14] MEDS ORDERED: SODIUM CHLORIDE 0.9% 1,000 ML IV SCH (08:30)
[2020-03-14] MEDS: ASPIRIN 81 MG PO SCH (08:51)
[2020-03-14] MEDS: METOPROLOL SUCCINATE (ER) 25 MG TAB.ER.24H PO SCH (08:52)
[2020-03-14] MEDS ORDERED: IOPAMIDOL-370 125ML BTL INJ ONE (08:55)
[2020-03-14] MEDS: AMIODARONE 200 MG TAB PO SCH (08:59)
[2020-03-14] MEDS: FUROSEMIDE 40 MG TAB PO SCH (08:59)
--- NOTE | 2020-03-14 09:03 | CC ---
CARDIAC CATHETERIZATION REPORT INDICATION: Acute pulmonary edema. PROCEDURE NOTE: After obtaining informed consent, left heart catheterization and coronary angiogram are performed via the right femoral artery using standard Jerel catheters. The patient tolerated the procedure well without any obvious immediate complications. A femoral angiogram was performed and Angio-Seal was deployed for hemostasis. Patient received moderate conscious sedation. Total sedation time was 18 minutes. FINDINGS: 1. HEMODYNAMICS: Left ventricular end-diastolic pressure is 18 mm. There is no significant gradient across the aortic valve. 2. LEFT VENTRICULOGRAM: Left ventriculogram is not performed. 3. ANGIOGRAPHIC DATA: Right Coronary Artery: Right coronary artery was previously stented, appears completely occluded in the proximal portion with [id number] collaterals. LAD and circumflex coronary artery have almost separate origins. Circumflex is a codominant system, shows mild to moderate diffuse disease without focal significant lesion. LAD and its branches are free of focal significant stenosis. CONCLUSIONS: 1. Chronically occluded right coronary artery with extensive [id number] collaterals. 2. Mild to moderate coronary artery disease involving LAD and circumflex coronary artery with focal obstructive lesions. PLAN: Patient's management is going to be in the form of risk factor modification and continued medical therapy. He is currently on Lasix, aspirin, Lipitor, amiodarone which we are going to continue. The enalapril was held because of renal insufficiency. Hopefully patient can be discharged home tomorrow. MMODL / IJN: [id number] /
[2020-03-14 10:57] VITALS: TEMP 98.4
--- NOTE | 2020-03-14 13:34 | P.PN ---
Subjective Progress Note Date: 03/14/20 Patient was seen and examined at the bedside on 03/14 at 9 AM. Patient reported feeling well and had no active complaints. He reported no further episodes of chest discomfort. Denied fever, chills, cough, nausea, vomiting, abdominal pain. The patient is scheduled for a cardiac catheterization today. Objective - Vital Signs Vital signs: Vital Signs Temp 98.4 F 03/14/20 12:06 Pulse 70 03/14/20 12:06 Resp 17 03/14/20 12:06 BP 84/52 03/14/20 12:06 Pulse Ox 95 03/14/20 12:06 Intake & Output 03/13/20 03/14/20 03/14/20 18:59 06:59 18:59 Intake Total 688.542 62.884 100 Output Total 400 350 Balance 288.542 -287.116 100 Weight 70.2 kg Intake: IV 100 Intake, IV Titration 88.542 62.884 Amount Heparin Sod,Pork in 0.45% 88.542 62.884 NaCl 25,000 unit In 0.45 % NaCl 1 250ml.bag @ 12 UNITS/KG/HR 7.784 mls/hr IV .Q24H [facility] Rx#: [id number] Oral 600 Output: Urine 400 350 Other: Voiding Method Toilet Toilet Toilet Urinal Urinal Urinal # Voids 1 - Exam General: Non-toxic, in no acute distress, appears stated age, normal weight HEENT: NC/AT, anicteric sclerae, moist conjunctiva, no lid-lag, PERRLA Cardiovascular: S1/S2 wnl, no murmurs, rubs, or gallops Lungs: Clear to auscultation, normal respiratory effort, no accessory muscle use Abdominal: Soft, non-tender, non-distended, no guarding, rebound, or rigidity Skin: Warm, dry Extremities: No edema or contractures Psychiatric: Alert and oriented to person, place and time, appropriate affect Neuro: CN II-XII grossly intact, Strength 5/5 in all 4 extremities, Speech intact, Sensation to light touch grossly intact throughout - Labs CBC & Chem 7: 03/14/20 02:45 03/14/20 02:45 Labs: Abnormal Lab Results - Last 24 Hours (Table) 03/13/20 03/14/20 03/14/20 Range/Units 18:51 02:45 02:45 WBC 11.6 H (3.8-10.6) k/uL Hgb 11.6 L (13.0-17.5) gm/dL Hct 36.7 L (39.0-53.0) % RDW 16.8 H (11.5-15.5) % APTT 30.6 H (22.0-30.0) sec Sodium 132 L (137-145) mmol/L Chloride 95 L (98-107) mmol/L Glucose 114 H (74-99) mg/dL 03/14/20 Range/Units 02:45 WBC (3.8-10.6) k/uL Hgb (13.0-17.5) gm/dL Hct (39.0-53.0) % RDW (11.5-15.5) % APTT 54.5 H (22.0-30.0) sec Sodium (137-145) mmol/L Chloride (98-107) mmol/L Glucose (74-99) mg/dL Assessment and Plan Plan: Chest pain, status post cardiac catheterization -Chronically occluded RCA with extensive collaterals with mild to moderate CAD involving LAD and circumflex -Cardiology recommended medical management -Continue with aspirin, lisinopril, Lipitor Chronic A. fib -Continue home Xarelto Chronic systolic CHF, status post AICD -Continue with intake and output monitoring -Lasix switched to oral 40 twice a day -Daily weights Hypertension, hyperlipidemia -Continue with home meds LARS, resolved DVT prophylaxis -Xarelto Discussed with: Patient Anticipated discharge date: in am Anticipated discharge place: Home A total of 35 minutes was spent on the care of this complex patient more than 50% of the time was spent in counseling and care coordination.
--- NOTE | 2020-03-14 15:07 | P.DS ---
Providers Date of admission: 03/11/20 09:44 Expected date of discharge: 03/14/20 Attending physician: Ember Giordano Consults: 03/11/20 09:43 Consult Physician Routine Consulting Provider: [facility] Consult Reason/Comments: Pulmonary edema, unstable angina Do you want consulting provider notified?: Yes Primary care physician: [facility] Course: Patient is a 70-year-old male with a PMH of coronary artery disease, systolic CHF, A. fib on Xarelto, hypertension, and hyperlipidemia who presented to the emergency room with complaints of chest pain. The patient was admitted to the medicine service for further management. The patient subsequently underwent a cardiac catheterization which revealed chronically occluded right coronary artery with extensive [id number] collaterals along with mild to moderate coronary artery disease involving LAD and circumflex coronary arteries with focal obstructive lesions. Maximal medical therapy was recommended. The case was discussed with the cardiology team who noted that the patient is stable for discharge to home with an outpatient cardiology follow-up. Patient was seen and examined at the bedside on the day of discharge. He reported feeling well and had no further episodes of chest discomfort. He had any additional complaints. He denied shortness of breath, fever, chills, cough, nausea, vomiting, abdominal pain. Patient was advised that if his symptoms recur or worsen, that he should return to the emergency room immediately. The patient is ready and agreeable for discharge to home. Physical Examination General: Non-toxic, in no acute distress, appears stated age, normal weight HEENT: NC/AT, anicteric sclerae, moist conjunctiva, no lid-lag, PERRLA Cardiovascular: S1/S2 wnl, no murmurs, rubs, or gallops Lungs: Clear to auscultation, normal respiratory effort, no accessory muscle use Abdominal: Soft, non-tender, non-distended, no guarding, rebound, or rigidity Skin: Warm, dry Extremities: No edema or contractures Psychiatric: Alert and oriented to person, place and time, appropriate affect Neuro: CN II-XII grossly intact, Strength 5/5 in all 4 extremities, Speech intact, Sensation to light touch grossly intact throughout Discharge diagnosis: Chest pain, acute ischemic event ruled out; LARS, resolved; chronic systolic CHF; chronic A. fib; hypertension; hyperlipidemia A total of 35 minutes of time were spent preparing this complex discharge summary. Patient Condition at Discharge: Serious Plan - Discharge Summary New Discharge Prescriptions: New Aspirin 81 mg PO DAILY #30 chew Continue Enalapril Maleate 2.5 mg PO HS Atorvastatin [Lipitor] 80 mg PO HS Rivaroxaban [Xarelto] 20 mg PO W/SUPPER #30 tab Spironolactone [Aldactone] 50 mg PO DAILY Furosemide [Lasix] 20 mg PO DAILY Amiodarone [Cordarone] 200 mg PO DAILY Omeprazole [PriLOSEC] 40 mg PO DAILY Metoprolol Succinate (ER) [Toprol XL] 25 mg PO DAILY Discharge Medication List Atorvastatin [Lipitor] 80 mg PO HS 11/27/13 [History] Enalapril Maleate 2.5 mg PO HS 11/27/13 [History] Rivaroxaban [Xarelto] 20 mg PO W/SUPPER #30 tab 12/14/19 [Rx] Amiodarone [Cordarone] 200 mg PO DAILY 02/09/20 [History] Furosemide [Lasix] 20 mg PO DAILY 02/09/20 [History] Omeprazole [PriLOSEC] 40 mg PO DAILY 02/09/20 [History] Spironolactone [Aldactone] 50 mg PO DAILY 02/09/20 [History] Metoprolol Succinate (ER) [Toprol XL] 25 mg PO DAILY 03/11/20 [History] Aspirin 81 mg PO DAILY #30 chew 03/14/20 [Rx] Follow up Appointment(s)/Referral(s): Lenard Cheatham MD [Primary Care Provider] - 1-2 days Ricky Marie MD [STAFF PHYSICIAN] - 1 Week Discharge Disposition: HOME SELF-CARE
[2020-03-14 16:47] VITALS: BP 96/67; PULSE 77; RESP 16
[2020-03-14] MEDS ORDERED: RIVAROXABAN 20 MG TAB PO SCH (17:30)
== END 2020-03-14 16:46 | disposition home or self-care (01) | DRG 286 ==
LOC: EC 07:36 → 3SCARD 09:44
PROVIDERS: ADMIT Internal Medicine; ATTEND Internal Medicine
PROC: B2111ZZ Fluoroscopy of Multiple Coronary Arteries using Low Osmolar Contrast (ICD-10-PCS; principal; 2020-03-14 08:15)
PROC: 4A023N7 Measurement of Cardiac Sampling and Pressure, Left Heart, Percutaneous Approach (ICD-10-PCS; principal; 2020-03-14 08:15)
DX: I25.110 Atherosclerotic heart disease of native coronary artery with unstable angina pectoris (principal); I50.23 Acute on chronic systolic (congestive) heart failure; N17.9 Acute kidney failure, unspecified; I48.20 Chronic atrial fibrillation, unspecified; I47.2 Ventricular tachycardia; I11.0 Hypertensive heart disease with heart failure; I25.82 Chronic total occlusion of coronary artery; I25.5 Ischemic cardiomyopathy; Z20.828 Contact with and (suspected) exposure to other viral communicable diseases; E78.5 Hyperlipidemia, unspecified; I25.2 Old myocardial infarction; I44.7 Left bundle-branch block, unspecified; Z79.01 Long term (current) use of anticoagulants; Z79.899 Other long term (current) drug therapy; Z87.891 Personal history of nicotine dependence; Z95.5 Presence of coronary angioplasty implant and graft; Z95.810 Presence of automatic (implantable) cardiac defibrillator; Z87.01 Personal history of pneumonia (recurrent); Z87.11 Personal history of peptic ulcer disease; Z87.39 Personal history of other diseases of the musculoskeletal system and connective tissue; Z82.49 Family history of ischemic heart disease and other diseases of the circulatory system
CPT/HCPCS: 36415; 71046; 80048; 80053; 82150; 83690; 83735; 83880; 84484; 85025; 85027; 85610; 85730; 87635; 93005; 93306; 93458; 94760; 96361; 96374; 96375; 99291

== ENCOUNTER 2020-03-26 10:58 | Inpatient (IN) | payer MEDICARE ==
[2020-03-26] MEDS ORDERED: SODIUM CHLORIDE 0.9% 1,000 ML IV STA ×2 (11:44→12:29)
[2020-03-26] MEDS ORDERED: ONDANSETRON 4 MG/2 ML VIAL IVP STA (11:44)
--- NOTE | 2020-03-26 11:48 | ED ---
General Adult HPI <Leandro Murillo - Last Filed: 03/26/20 16:04> - General Source: patient, RN notes reviewed, old records reviewed Mode of arrival: wheelchair Limitations: no limitations <Wilfrid Ruby - Last Filed: 03/27/20 11:06> - General Chief complaint: Nausea/Vomiting/Diarrhea Stated complaint: nausea/no appetite Time Seen by Provider: 03/26/20 11:00 - History of Present Illness Initial comments: This is a 7-year-old male with past medical history significant for multiple heart attacks as well as having a pacemaker defibrillator in place. Patient comes in today because he states that since November he is been having vomiting almost every day. Patient states she's been seen by his primary medical care doctor recent upper and lower GI and they did not find anything. Patient states last night was considerably worse. Dry heaves struck the whole night. Patient states he has diffuse abdominal pain again that is been ongoing since November. Patient denies any fever chills or cough. Patient denies chest pain or palpitations. Patient denies any diarrhea. Patient denies any dysuria hematuria urinary frequency. (Wilfrid Ruby) - Related Data Home Medications Medication Instructions Recorded Confirmed Atorvastatin [Lipitor] 80 mg PO HS 11/27/13 03/26/20 Enalapril Maleate 2.5 mg PO HS 11/27/13 03/26/20 Amiodarone [Cordarone] 200 mg PO DAILY 02/09/20 03/26/20 Furosemide [Lasix] 20 mg PO DAILY 02/09/20 03/26/20 Omeprazole [PriLOSEC] 40 mg PO DAILY 02/09/20 03/26/20 Spironolactone [Aldactone] 50 mg PO DAILY 02/09/20 03/26/20 Metoprolol Succinate (ER) [Toprol 25 mg PO DAILY 03/11/20 03/26/20 XL] Previous Rx's Medication Instructions Recorded Rivaroxaban [Xarelto] 20 mg PO W/SUPPER #30 tab 12/14/19 Aspirin 81 mg PO DAILY #30 chew 03/14/20 Allergies Allergy/AdvReac Type Severity Reaction Status Date / Time No Known Allergies Allergy Verified 03/26/20 14:55 Review of Systems ROS Other: All systems not noted in ROS Statement are negative. <Leandro Murillo - Last Filed: 03/26/20 16:04> ROS Other: All systems not noted in ROS Statement are negative. <Wilfrid Ruby - Last Filed: 03/27/20 11:06> ROS Statement: Those systems with pertinent positive or pertinent negative responses have been documented in the HPI. Past Medical History Past Medical History: Atrial Fibrillation, Coronary Artery Disease (CAD), Hyperlipidemia, Hypertension, Myocardial Infarction ([place]), Pneumonia Additional Past Medical History / Comment(s): X3 [place]'S, ULCER YEARS AGO, bradycardia Last Myocardial Infarction Date:: 2004 History of Any Multi-Drug Resistant Organisms: None Reported Past Surgical History: AICD, Cardiac Ablation, Heart Catheterization With Stent, Orthopedic Surgery, Pacemaker Additional Past Surgical History / Comment(s): CARDIOVERSION, HEART STENTS X7, cardiac ablation x 2 in the past and again om 12-05-15, rt wrist surgery after injury Past Anesthesia/Blood Transfusion Reactions: No Reported Reaction Additional Past Anesthesia/Blood Transfusion Reaction / Comment(s): NEVER HAS HAD GENERAL ANESTHESIA Date of Last Stent Placement:: 2004 Type of Cardiac Device: AICD Device Placement Date:: 2015 Past Psychological History: No Psychological Hx Reported Smoking Status: Former smoker Past Alcohol Use History: None Reported Past Drug Use History: None Reported - Past Family History Father Additional Family Medical History / Comment(s): DAD HAD PACER BUT NO OTHER HX KNOWN Mother Family Medical History: No Reported History Additional Family Medical History / Comment(s): pt stated does'nt know medical hx on parents. <Wilfrid Ruby - Last Filed: 03/27/20 11:06> General Exam Limitations: no limitations <Wilfrid Ruby - Last Filed: 03/27/20 11:06> - General Exam Comments Initial Comments: GENERAL: Patient is well-developed and well-nourished. Patient is nontoxic and well- hydrated and is in distress. ENT: Neck is soft and supple. No significant lymphadenopathy is noted. Oropharynx is clear. Moist mucous membranes. Neck has full range of motion without eliciting any pain. EYES: The sclera were anicteric and conjunctiva were pink and moist. Extraocular movements were intact and pupils were equal round and reactive to light. Eyelids were unremarkable. PULMONARY: Unlabored respirations. Good breath sounds bilaterally. No audible rales rhonchi or wheezing was noted. CARDIOVASCULAR: There is a regular rate and rhythm without any murmurs gallops or rubs. ABDOMEN: Patient has mild abdominal tenderness diffusely no point tenderness SKIN: Skin is clear with no lesions or rashes and otherwise unremarkable. NEUROLOGIC: Patient is alert and oriented x3. Cranial nerves II through XII are grossly intact. Motor and sensory are also intact. Normal speech, volume and content. Symmetrical smile. MUSCULOSKELETAL: Normal extremities with adequate strength and full range of motion. No lower extremity swelling or edema. No calf tenderness. LYMPHATICS: No significant lymphadenopathy is noted PSYCHIATRIC: Normal psychiatric evaluation. (Wilfrid Ruby) Course <Leandro Murillo - Last Filed: 03/26/20 16:04> Vital Signs 03/26/20 03/26/20 03/26/20 11:02 11:26 11:30 Temperature 98.6 F Pulse Rate 50 L 91 98 Pulse Rate [ [place] ] Respiratory 18 12 18 Rate Blood Pressure 116/83 Blood Pressure [Left Arm] O2 Sat by Pulse 95 94 L 92 L Oximetry 03/26/20 03/26/20 03/26/20 12:00 13:00 13:30 Temperature 97.1 F L Pulse Rate 84 84 96 Pulse Rate [ [place] ] Respiratory 18 20 22 Rate Blood Pressure 108/79 94/81 96/66 Blood Pressure [Left Arm] O2 Sat by Pulse 93 L Oximetry 03/26/20 03/26/20 03/26/20 14:30 15:00 15:36 Temperature 97.5 F L Pulse Rate 105 H 95 Pulse Rate [ [place] ] Respiratory 20 16 Rate Blood Pressure 90/65 112/65 Blood Pressure [Left Arm] O2 Sat by Pulse 91 L 84 L Oximetry 03/26/20 03/26/20 16:00 17:00 Temperature 97.9 F 95.9 F L Pulse Rate 101 H Pulse Rate [ 100 [place] ] Respiratory 19 18 Rate Blood Pressure 103/62 Blood Pressure 113/77 [Left Arm] O2 Sat by Pulse 98 Oximetry - Reevaluation(s) Reevaluation #1: 03/26/20 15:54 I was notified by the patient's ED nurse that the patient's repeat lactic acid level has now increased to 11.2. An ABG was obtained which shows a pH of 7.216 and a serum bicarb of 12.2. Patient is noted to have findings of colitis on CT abdomen/pelvis, and patient presented to the ED today with symptoms of abdominal pain, nausea and vomiting. Patient is also noted to have a leukocytosis of 25,000. Patient does not have any rebound tenderness or guarding on examination at this time. Still, given all of these findings and my concern for possible ischemic bowel, Dr. Younger (general surgery) was contacted by telephone. I have explained my concerns to him about the possibility of ischemic bowel, and he states that he will be in to the ED shortly to see/evaluate the patient. (Leandro Murillo) Medical Decision Making - Lab Data Result diagrams: 03/26/20 11:46 03/26/20 11:46 - Radiology Data Radiology results: report reviewed (Repeat chest x-ray shows CHF with pleural effusions, pulmonary congestion slightly improved when compared to exam from 2 hours ago) <Leandro Murillo - Last Filed: 03/26/20 16:04> - Lab Data Result diagrams: 03/27/20 06:10 03/27/20 06:10 <Wilfrid Ruby - Last Filed: 03/27/20 11:06> - Medical Decision Making EKG shows atrial fibrillation at 91 bpm QRS is 182 QT interval is 492 QTC is 605. Patient also has a left bundle branch block. Computed tomography scan showed bilateral pleural effusions and small ascites and thickened colon. Ultrasound shows no dilated ducts or stones. I spoke with Dr. Murillo agreed to admit the patient admitted the patient wrote admitting orders. I indicated patient needed be seen soon. Patient was started on Rocephin because the high white count and high lactic acid however no source of infection could be seen at this time I did give the patient 30 mL per KG. I also did a focused physical exam after the patient got is 30 mL however was unable to document this in the normal procedure because I don't have a time that I called sepsis because it did not meet at this time. I did not call the sepsis because I do not have a source at this time. I spoke with Dr. Younger and he agreed to be consult for this patient. I also consult the GI. (Wilfrid Ruby) - Lab Data Lab Results 03/26/20 03/26/20 03/26/20 Range/Units 11:46 11:46 11:46 WBC 25.4 H (3.8-10.6) k/uL RBC 5.10 (4.30-5.90) m/uL Hgb 13.6 (13.0-17.5) gm/dL Hct 43.3 (39.0-53.0) % MCV 85.0 (80.0-100.0) fL MCH 26.8 (25.0-35.0) pg MCHC 31.5 (31.0-37.0) g/dL RDW 17.3 H (11.5-15.5) % Plt Count 384 (150-450) k/uL MPV 8.8 Neutrophils % 82 % Lymphocytes % 4 % Monocytes % 10 % Eosinophils % 0 % Basophils % 1 % Neutrophils # 20.8 H (1.3-7.7) k/uL Lymphocytes # 1.1 (1.0-4.8) k/uL Monocytes # 2.6 H (0-1.0) k/uL Eosinophils # 0.1 (0-0.7) k/uL Basophils # 0.1 (0-0.2) k/uL Manual Slide Review Performed Hypochromasia Moderate Poikilocytosis Slight Anisocytosis Slight Target Cells Present Crenated Cell Present Sodium 135 L (137-145) mmol/L Potassium 5.7 H (3.5-5.1) mmol/L Chloride 97 L (98-107) mmol/L Carbon Dioxide 18 L (22-30) mmol/L Anion Gap 20 mmol/L BUN 20 (9-20) mg/dL Creatinine 1.61 H (0.66-1.25) mg/dL Est GFR (CKD-EPI)AfAm 50 (>60 ml/min/1.73 sqM) Est GFR (CKD-EPI)NonAf 43 (>60 ml/min/1.73 sqM) Glucose 93 (74-99) mg/dL Lactic Ac Sepsis Rflx Plasma Lactic Acid Geoff 10.4 H* (0.7-2.0) mmol/L Calcium 9.2 (8.4-10.2) mg/dL Total Bilirubin 3.4 H (0.2-1.3) mg/dL Conjugated Bilirubin (0.0-0.3) mg/dL Unconjugated Bilirubin (0.0-1.1) mg/dL Delta Bilirubin (0.0-0.2) mg/dL AST 1441 H (17-59) U/L ALT 534 H (4-49) U/L Alkaline Phosphatase 188 H (38-126) U/L Total Protein 7.8 (6.3-8.2) g/dL Albumin 4.0 (3.5-5.0) g/dL Amylase 35 (30-110) U/L Lipase 34 (23-300) U/L Urine Color Urine Appearance (Clear) Urine pH (5.0-8.0) Ur Specific [place] (1.001-1.035) Urine Protein (Negative) Urine Glucose (UA) (Negative) Urine Ketones (Negative) Urine Blood (Negative) Urine Nitrite (Negative) Urine Bilirubin (Negative) Urine Urobilinogen (<2.0) mg/dL Ur Leukocyte Esterase (Negative) Urine RBC (0-5) /hpf Urine WBC (0-5) /hpf Ur Squamous Epith Cells (0-4) /hpf Hyaline Casts (0-2) /lpf Urine Mucus (None) /hpf Coronavirus (PCR) (Not Detectd) 03/26/20 03/26/20 03/26/20 Range/Units 11:46 12:04 13:10 WBC (3.8-10.6) k/uL RBC (4.30-5.90) m/uL Hgb (13.0-17.5) gm/dL Hct (39.0-53.0) % MCV (80.0-100.0) fL MCH (25.0-35.0) pg MCHC (31.0-37.0) g/dL RDW (11.5-15.5) % Plt Count (150-450) k/uL MPV Neutrophils % % Lymphocytes % % Monocytes % % Eosinophils % % Basophils % % Neutrophils # (1.3-7.7) k/uL Lymphocytes # (1.0-4.8) k/uL Monocytes # (0-1.0) k/uL Eosinophils # (0-0.7) k/uL Basophils # (0-0.2) k/uL Manual Slide Review Hypochromasia Poikilocytosis Anisocytosis Target Cells Crenated Cell Sodium (137-145) mmol/L Potassium (3.5-5.1) mmol/L Chloride (98-107) mmol/L Carbon Dioxide (22-30) mmol/L Anion Gap mmol/L BUN (9-20) mg/dL Creatinine (0.66-1.25) mg/dL Est GFR (CKD-EPI)AfAm (>60 ml/min/1.73 sqM) Est GFR (CKD-EPI)NonAf (>60 ml/min/1.73 sqM) Glucose (74-99) mg/dL Lactic Ac Sepsis Rflx Y Plasma Lactic Acid Geoff (0.7-2.0) mmol/L Calcium (8.4-10.2) mg/dL Total Bilirubin 3.2 H (0.2-1.3) mg/dL Conjugated Bilirubin 0.4 H (0.0-0.3) mg/dL Unconjugated Bilirubin 1.6 H (0.0-1.1) mg/dL Delta Bilirubin 1.2 H (0.0-0.2) mg/dL AST 1472 H (17-59) U/L ALT 537 H (4-49) U/L Alkaline Phosphatase 192 H (38-126) U/L Total Protein 7.7 (6.3-8.2) g/dL Albumin 3.9 (3.5-5.0) g/dL Amylase (30-110) U/L Lipase (23-300) U/L Urine Color [place] Pos Urine Appearance Cloudy (Clear) Urine pH 5.5 (5.0-8.0) Ur Specific [place] 1.024 (1.001-1.035) Urine Protein 1+ H (Negative) Urine Glucose (UA) Negative (Negative) Urine Ketones Negative (Negative) Urine Blood Negative (Negative) Urine Nitrite Negative (Negative) Urine Bilirubin Negative (Negative) Urine Urobilinogen 3.0 (<2.0) mg/dL Ur Leukocyte Esterase Negative (Negative) Urine RBC 1 (0-5) /hpf Urine WBC 3 (0-5) /hpf Ur Squamous Epith Cells 1 (0-4) /hpf Hyaline Casts 43 H (0-2) /lpf Urine Mucus Few H (None) /hpf Coronavirus (PCR) (Not Detectd) 03/26/20 Range/Units 14:18 WBC (3.8-10.6) k/uL RBC (4.30-5.90) m/uL Hgb (13.0-17.5) gm/dL Hct (39.0-53.0) % MCV (80.0-100.0) fL MCH (25.0-35.0) pg MCHC (31.0-37.0) g/dL RDW (11.5-15.5) % Plt Count (150-450) k/uL MPV Neutrophils % % Lymphocytes % % Monocytes % % Eosinophils % % Basophils % % Neutrophils # (1.3-7.7) k/uL Lymphocytes # (1.0-4.8) k/uL Monocytes # (0-1.0) k/uL Eosinophils # (0-0.7) k/uL Basophils # (0-0.2) k/uL Manual Slide Review Hypochromasia Poikilocytosis Anisocytosis Target Cells Crenated Cell Sodium (137-145) mmol/L Potassium (3.5-5.1) mmol/L Chloride (98-107) mmol/L Carbon Dioxide (22-30) mmol/L Anion Gap mmol/L BUN (9-20) mg/dL Creatinine (0.66-1.25) mg/dL Est GFR (CKD-EPI)AfAm (>60 ml/min/1.73 sqM) Est GFR (CKD-EPI)NonAf (>60 ml/min/1.73 sqM) Glucose (74-99) mg/dL Lactic Ac Sepsis Rflx Plasma Lactic Acid Geoff (0.7-2.0) mmol/L Calcium (8.4-10.2) mg/dL Total Bilirubin (0.2-1.3) mg/dL Conjugated Bilirubin (0.0-0.3) mg/dL Unconjugated Bilirubin (0.0-1.1) mg/dL Delta Bilirubin (0.0-0.2) mg/dL AST (17-59) U/L ALT (4-49) U/L Alkaline Phosphatase (38-126) U/L Total Protein (6.3-8.2) g/dL Albumin (3.5-5.0) g/dL Amylase (30-110) U/L Lipase (23-300) U/L Urine Color Urine Appearance (Clear) Urine pH (5.0-8.0) Ur Specific [place] (1.001-1.035) Urine Protein (Negative) Urine Glucose (UA) (Negative) Urine Ketones (Negative) Urine Blood (Negative) Urine Nitrite (Negative) Urine Bilirubin (Negative) Urine Urobilinogen (<2.0) mg/dL Ur Leukocyte Esterase (Negative) Urine RBC (0-5) /hpf Urine WBC (0-5) /hpf Ur Squamous Epith Cells (0-4) /hpf Hyaline Casts (0-2) /lpf Urine Mucus (None) /hpf Coronavirus (PCR) Not Detected (Not Detectd) Critical Care Time Critical Care Time: Yes Total Critical Care Time: 35 <Wilfrid Ruby - Last Filed: 03/27/20 11:06> Disposition <Leandro Murillo - Last Filed: 03/26/20 16:04> Time of Disposition: 14:12 <Wilfrid Ruby - Last Filed: 03/27/20 11:06> Clinical Impression: Pleural effusion, Ascites, Colitis, Transaminitis, Acute pulmonary edema, Lactic acidosis Disposition: ADMITTED IP TO THIS HOSP
[2020-03-26 12:02] LABS: Anisocytosis Slight; Basophils # (A) 0.1 k/uL (0-0.2); Basophils % (A) 1 %; Eosinophils # (A) 0.1 k/uL (0-0.7); Eosinophils % (A) 0 %; HCT 43.3 % (39.0-53.0); HGB 13.6 gm/dL (13.0-17.5); Hypochromasia Moderate; Lymphocytes # (A) 1.1 k/uL (1.0-4.8); Lymphocytes % (A) 4 %; MCH 26.8 pg (25.0-35.0); MCHC 31.5 g/dL (31.0-37.0); Mean Platelet Volume 8.8; Monocytes # (A) 2.6 k/uL (0-1.0); Monocytes % (A) 10 %; Neutrophils # (A) 20.8 k/uL (1.3-7.7); Neutrophils % (A) 82 %; Platelet Count 384 k/uL (150-450); Poikilocytosis Slight; RDW 17.3 % (11.5-15.5); WBC 25.4 k/uL (3.8-10.6)
[2020-03-26 12:03] LABS: Calcium 9.2 mg/dL (8.4-10.2); Potassium 5.7 mmol/L (3.5-5.1); Total Bilirubin 3.4 mg/dL (0.2-1.3); Total Protein 7.8 g/dL (6.3-8.2)
[2020-03-26 12:35] LABS: Crenated RBC Present
[2020-03-26 12:36] LABS: Target Cells Present
[2020-03-26] MEDS ORDERED: cefTRIAXone IN SWFI 1,000 MG/10 ML SYRINGE IVP STA (12:49)
--- NOTE | 2020-03-26 12:54 | CT ---
EXAMINATION TYPE: CT abdomen pelvis w con DATE OF EXAM: 03/26/2020 COMPARISON: None HISTORY: Abd pain CT DLP: 790.7 mGycm Automated exposure control for dose reduction was used. CONTRAST: CT scan of the abdomen pelvis is performed with IV Contrast, patient injected with 80 mL of Isovue 30 0. FINDINGS- LUNG BASES-bilateral moderate-sized pleural effusions with compressive atelectasis. Coronary artery c alcification noted. There is a calcification along the right hemidiaphragm.. Cardiac leads noted. LIVER/GB-there is increased density surrounding the gallbladder wall which appears to be decompressed . Small amount of pericholecystic fluid in the differential diagnosis. No obvious gallstones.. Liver is somewhat lobulated with slightly reduced attenuation PANCREAS- No gross abnormality is seen. SPLEEN- No gross abnormality is seen. ADRENALS- No gross abnormality is seen. KIDNEYS/BLADDER-Limited assessment due to the phase of imaging. No obvious hydronephrosis or nephroli thiasis.. BOWEL-appendix normal. Bowel gas pattern nonspecific with no obstruction. There does appear to be wal l thickening involving the right colon which may be related to incomplete distention rather than mild colitis correlate clinically.. LYMPH NODES- No greater than 1cm abdominal or pelvic lymph nodes areappreciated. OSSEOUS STRUCTURES- No significant abnormality is seen. OTHER- small amount of free fluid in the pelvis is nonspecific. Extensive vascular calcifications of the aorta. 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 IMPRESSION- 1. Moderate-sized bilateral pleural effusions and suspected compressive bilateral lower lobe atelecta sis. 2. Small amount of ascites and pelvic fluid. 3. Wall thickening of the colon particularly the right colon most likely is related to incomplete dis tention rather than mild colitis but should be correlated clinically given there is a trace amount of fluid in the pericolonic gutter. Appendix normal.. The SMA and celiac axis are diminutive in size an d there is extensive vascular disease. Findings may been the basis of a colitis including infectious or ischemic. 4. No gallstones but there is a small amount of fluid surrounding the gallbladder recommendation for correlation with ultrasound to assess for cholecystitis. 5. Slightly nodular contour of the liver which is slightly reduced in attenuation and could be associ ated with hepatic disease correlate for elevated LFTs and hepatocellular disease.
[2020-03-26 13:19] LABS: Appearance,Urine Cloudy (Clear); Bilirubin,Urine Negative (Negative); Blood,Urine Negative (Negative); Color,Urine Orange; Glucose,Urine (UA) Negative (Negative); Hyaline Casts,Urine 43 /lpf (0-2); Ketones,Urine Negative (Negative); Leukocyte Esterase,Urine Negative (Negative); Mucus,Urine Few /hpf; Nitrite,Urine Negative (Negative); PH, Urine 5.5 (5.0-8.0); Protein,Urine 1+ (Negative); RBC,Urine 1 /hpf (0-5); Specific Gravity,Urine 1.024 (1.001-1.035); Squamous Epithelial Cell,Urine 1 /hpf (0-4); WBC,Urine 3 /hpf (0-5)
[2020-03-26 13:24] LABS: Albumin 3.9 g/dL (3.5-5.0); Bilirubin, Conjugated 0.4 mg/dL (0.0-0.3); Bilirubin, Delta 1.2 mg/dL (0.0-0.2); Bilirubin,Unconjugated 1.6 mg/dL (0.0-1.1); Total Bilirubin 3.2 mg/dL (0.2-1.3); Total Protein 7.7 g/dL (6.3-8.2)
--- NOTE | 2020-03-26 13:48 | US ---
EXAMINATION TYPE: US gallbladder DATE OF EXAM: 03/26/2020 COMPARISON: NONE CLINICAL HISTORY: abd pain. abd pain with nausea for 3 months EXAM MEASUREMENTS: Liver Length: 14.4 cm Gallbladder Wall: 0.6 cm CBD: 0.5 cm Right Kidney: 10.9 x 4.2 x 4.7 cm Pancreas: wnl Liver: nodular contour Gallbladder: contracted with thickened wall, patient is NPO 3 days Evidence for sonographic Lovelace's sign: yes CBD: wnl Right Kidney: wnl right pleural effusion noted IMPRESSION: Contracted gallbladder. No gallstones or dilated ducts.
[2020-03-26] MEDS ORDERED: SODIUM CHLORIDE 0.9% 500 ML 500 ML IV ONE (13:53)
--- NOTE | 2020-03-26 13:55 | XR ---
EXAMINATION TYPE: XR chest 2V DATE OF EXAM: 03/26/2020 COMPARISON: 03/11/2020 HISTORY: Chest pain. Short of breath. TECHNIQUE: FINDINGS: Heart is enlarged. There is some pulmonary vascular congestion. There is blunting of the co stophrenic angles. There is left axillary pacemaker. There are chest leads. IMPRESSION: Congestive heart failure with pleural effusions that is the same or slightly worse than l ast exam.
[2020-03-26] MEDS ORDERED: SODIUM CHLORIDE 0.9% 1,000 ML IV ONE (14:24)
[2020-03-26] MEDS ORDERED: HYDROmorphone 0.5 MG/0.5 ML SYRINGE IVP PRN (14:38)
[2020-03-26] MEDS ORDERED: FUROSEMIDE 10 MG/ML 2 ML VIAL IV ONE (15:01)
[2020-03-26 15:33] LABS: ABG Base Excess -15.6 mmol/L; ABG HCO3 12 mmol/L (21-25); ABG Oxygen Saturation 97.7 % (94-97); ABG PCO2 30 mmHg (35-45); ABG PH 7.22 (7.35-7.45); ABG PO2 123 mmHg (83-108); ABG TCO2 13 mmol/L (19-24); Allen Test Performed? Yes
--- NOTE | 2020-03-26 15:43 | XR ---
EXAMINATION TYPE: XR chest 1V portable DATE OF EXAM: 03/26/2020 COMPARISON: Today HISTORY: Short of breath TECHNIQUE: FINDINGS: Heart is enlarged. There is mild pulmonary congestion. There is blunting of the costophreni c angles on the right side more than the left. There is left axillary pacemaker. IMPRESSION: Congestive heart failure with pleural effusions. Pulmonary congestion slightly improved c ompared to exam 2 hours ago.
[2020-03-26] MEDS ORDERED: SODIUM POLYSTYRENE SULFONATE 15 GM/60 ML BOTTLE PO STA (15:48)
[2020-03-26 16:20] LABS: Partial Thromboplastin Time 38.8 sec (22.0-30.0); Prothrombin Time 85.8 sec (9.0-12.0)
[2020-03-26 16:27] LABS: INR 8.8 (<1.2)
--- NOTE | 2020-03-26 17:12 | P.GSCN ---
History of Present Illness Consult date: 03/26/20 History of present illness: 70-year-old male presented to the emergency department with approximately 24 hours of some abdominal pain, dry heaving and vomiting. He states that these episodes started in November 2019, however this worsened over the past 24 hours. He did have workup for this as an outpatient with upper and lower endoscopy with no significant acute findings in February 2020. He also did have a recent admission secondary to cardiac abnormality. He is on chronic anticoagulation. He states for many years he was on Eliquis and has recently been started on Xarelto, with last dose taken yesterday morning. He also was noted to have a history of atrial fibrillation. During current workup, patient is noted to have significant elevation in transaminases with AST greater than 1400 along with significant leukocytosis greater than 20. Imaging workup was performed with CT of the abdomen and pelvis. There is a note of possible thickening of the right colon that could either 0.2 colitis versus decompressed bowel. He is also noted to have significant vascular disease. Ultrasound of the abdomen showed no acute significant findings. The patient states that he has not had any significant changes in his bowel function. He states that 2 months ago he was having dark stool, however recently his stool has turned brown. He does not feel an urgency to use the bathroom. He states that he does follow his blood pressures at home and does not believe he has had any significant hypotensive episodes. Since his arrival to the emergency department , patient has had fluid resuscitation, however continues to have a lactic acidosis of 11.2 from 10.4. He states that since his arrival, his pain has improved and he is feeling somewhat better. He denies any previous abdominal surgical history. Since his arrival, he has not had any febrile episodes, no significant hypotensive episodes and has had heart rate between 80s to low 100s. Review of Systems All systems: negative Past Medical History Past Medical History: Atrial Fibrillation, Coronary Artery Disease (CAD), Hyperlipidemia, Hypertension, Myocardial Infarction ([place]), Pneumonia Additional Past Medical History / Comment(s): X3 TX'S, ULCER YEARS AGO, bradycardia Last Myocardial Infarction Date:: 2004 History of Any Multi-Drug Resistant Organisms: None Reported Past Surgical History: AICD, Cardiac Ablation, Heart Catheterization With Stent, Orthopedic Surgery, Pacemaker Additional Past Surgical History / Comment(s): CARDIOVERSION, HEART STENTS X7, cardiac ablation x 2 in the past and again om 9--, rt wrist surgery after injury Past Anesthesia/Blood Transfusion Reactions: No Reported Reaction Additional Past Anesthesia/Blood Transfusion Reaction / Comm: NEVER HAS HAD GENERAL ANESTHESIA Date of Last Stent Placement:: 2004 Type of Cardiac Device: AICD Device Placement Date:: 2015 Past Psychological History: No Psychological Hx Reported Smoking Status: Former smoker Past Alcohol Use History: None Reported Past Drug Use History: None Reported - Past Family History Father Additional Family Medical History / Comment(s): DAD HAD PACER BUT NO OTHER HX KNOWN Mother Family Medical History: No Reported History Additional Family Medical History / Comment(s): pt stated does'nt know medical hx on parents. Medications and Allergies Home Medications Medication Instructions Recorded Confirmed Type Atorvastatin [Lipitor] 80 mg PO HS 11/27/13 03/26/20 History Enalapril Maleate 2.5 mg PO HS 11/27/13 03/26/20 History Rivaroxaban [Xarelto] 20 mg PO W/SUPPER #30 tab 12/14/19 03/26/20 Rx Amiodarone [Cordarone] 200 mg PO DAILY 02/09/20 03/26/20 History Furosemide [Lasix] 20 mg PO DAILY 02/09/20 03/26/20 History Omeprazole [PriLOSEC] 40 mg PO DAILY 02/09/20 03/26/20 History Spironolactone [Aldactone] 50 mg PO DAILY 02/09/20 03/26/20 History Metoprolol Succinate (ER) [Toprol 25 mg PO DAILY 03/11/20 03/26/20 History XL] Aspirin 81 mg PO DAILY #30 chew 03/14/20 03/26/20 Rx Allergies Allergy/AdvReac Type Severity Reaction Status Date / Time No Known Allergies Allergy Verified 03/26/20 14:55 Surgical - Exam Osteopathic Statement: *. No significant issues noted on an osteopathic structural exam other than those noted in the History and Physical/Consult. Vital Signs Temp Pulse Resp Pulse Ox 98.6 F 50 L 18 95 03/26/20 11:02 03/26/20 11:02 03/26/20 11:02 03/26/20 11:02 - General well nourished, no distress - Eyes PERRL, normal ocular movement - ENT normal mucosa - Neck trachea midline - Respiratory normal respiratory effort - Abdomen Soft, nontender to deep palpation and nontender to percussion, no rebound, no guarding - Psychiatric oriented to time, oriented to person, oriented to place Results - Labs 03/26/20 11:46 03/26/20 11:46 Abnormal Lab Results - Last 24 Hours (Table) 03/26/20 03/26/20 03/26/20 Range/Units 11:46 11:46 11:46 WBC 25.4 H (3.8-10.6) k/uL RDW 17.3 H (11.5-15.5) % Neutrophils # 20.8 H (1.3-7.7) k/uL Monocytes # 2.6 H (0-1.0) k/uL PT (9.0-12.0) sec INR (<1.2) APTT (22.0-30.0) sec ABG pH (7.35-7.45) ABG pCO2 (35-45) mmHg ABG pO2 (83-108) mmHg ABG HCO3 (21-25) mmol/L ABG Total CO2 (19-24) mmol/L ABG O2 Saturation (94-97) % Sodium 135 L (137-145) mmol/L Potassium 5.7 H (3.5-5.1) mmol/L Chloride 97 L (98-107) mmol/L Carbon Dioxide 18 L (22-30) mmol/L Creatinine 1.61 H (0.66-1.25) mg/dL Plasma Lactic Acid Geoff 10.4 H* (0.7-2.0) mmol/L Total Bilirubin 3.4 H (0.2-1.3) mg/dL Conjugated Bilirubin (0.0-0.3) mg/dL Unconjugated Bilirubin (0.0-1.1) mg/dL Delta Bilirubin (0.0-0.2) mg/dL AST 1441 H (17-59) U/L ALT 534 H (4-49) U/L Alkaline Phosphatase 188 H (38-126) U/L Urine Protein (Negative) Hyaline Casts (0-2) /lpf Urine Mucus (None) /hpf 03/26/20 03/26/20 03/26/20 Range/Units 11:46 13:10 14:29 WBC (3.8-10.6) k/uL RDW (11.5-15.5) % Neutrophils # (1.3-7.7) k/uL Monocytes # (0-1.0) k/uL PT (9.0-12.0) sec INR (<1.2) APTT (22.0-30.0) sec ABG pH (7.35-7.45) ABG pCO2 (35-45) mmHg ABG pO2 (83-108) mmHg ABG HCO3 (21-25) mmol/L ABG Total CO2 (19-24) mmol/L ABG O2 Saturation (94-97) % Sodium (137-145) mmol/L Potassium (3.5-5.1) mmol/L Chloride (98-107) mmol/L Carbon Dioxide (22-30) mmol/L Creatinine (0.66-1.25) mg/dL Plasma Lactic Acid Geoff 11.2 H* (0.7-2.0) mmol/L Total Bilirubin 3.2 H (0.2-1.3) mg/dL Conjugated Bilirubin 0.4 H (0.0-0.3) mg/dL Unconjugated Bilirubin 1.6 H (0.0-1.1) mg/dL Delta Bilirubin 1.2 H (0.0-0.2) mg/dL AST 1472 H (17-59) U/L ALT 537 H (4-49) U/L Alkaline Phosphatase 192 H (38-126) U/L Urine Protein 1+ H (Negative) Hyaline Casts 43 H (0-2) /lpf Urine Mucus Few H (None) /hpf 03/26/20 03/26/20 Range/Units 15:12 15:59 WBC (3.8-10.6) k/uL RDW (11.5-15.5) % Neutrophils # (1.3-7.7) k/uL Monocytes # (0-1.0) k/uL PT 85.8 H (9.0-12.0) sec INR 8.8 H* (<1.2) APTT 38.8 H (22.0-30.0) sec ABG pH 7.22 L (7.35-7.45) ABG pCO2 30 L (35-45) mmHg ABG pO2 123 H (83-108) mmHg ABG HCO3 12 L (21-25) mmol/L ABG Total CO2 13 L (19-24) mmol/L ABG O2 Saturation 97.7 H (94-97) % Sodium (137-145) mmol/L Potassium (3.5-5.1) mmol/L Chloride (98-107) mmol/L Carbon Dioxide (22-30) mmol/L Creatinine (0.66-1.25) mg/dL Plasma Lactic Acid Geoff (0.7-2.0) mmol/L Total Bilirubin (0.2-1.3) mg/dL Conjugated Bilirubin (0.0-0.3) mg/dL Unconjugated Bilirubin (0.0-1.1) mg/dL Delta Bilirubin (0.0-0.2) mg/dL AST (17-59) U/L ALT (4-49) U/L Alkaline Phosphatase (38-126) U/L Urine Protein (Negative) Hyaline Casts (0-2) /lpf Urine Mucus (None) /hpf Diabetes panel 03/26/20 03/26/20 Range/Units 11:46 11:46 Sodium 135 L (137-145) mmol/L Potassium 5.7 H (3.5-5.1) mmol/L Chloride 97 L (98-107) mmol/L Carbon Dioxide 18 L (22-30) mmol/L BUN 20 (9-20) mg/dL Creatinine 1.61 H (0.66-1.25) mg/dL Glucose 93 (74-99) mg/dL Calcium 9.2 (8.4-10.2) mg/dL AST 1441 H 1472 H (17-59) U/L ALT 534 H 537 H (4-49) U/L Alkaline Phosphatase 188 H 192 H (38-126) U/L Total Protein 7.8 7.7 (6.3-8.2) g/dL Albumin 4.0 3.9 (3.5-5.0) g/dL Calcium panel 03/26/20 03/26/20 Range/Units 11:46 11:46 Calcium 9.2 (8.4-10.2) mg/dL Albumin 4.0 3.9 (3.5-5.0) g/dL Pituitary panel 03/26/20 Range/Units 11:46 Sodium 135 L (137-145) mmol/L Potassium 5.7 H (3.5-5.1) mmol/L Chloride 97 L (98-107) mmol/L Carbon Dioxide 18 L (22-30) mmol/L BUN 20 (9-20) mg/dL Creatinine 1.61 H (0.66-1.25) mg/dL Glucose 93 (74-99) mg/dL Calcium 9.2 (8.4-10.2) mg/dL Adrenal panel 03/26/20 03/26/20 Range/Units 11:46 11:46 Sodium 135 L (137-145) mmol/L Potassium 5.7 H (3.5-5.1) mmol/L Chloride 97 L (98-107) mmol/L Carbon Dioxide 18 L (22-30) mmol/L BUN 20 (9-20) mg/dL Creatinine 1.61 H (0.66-1.25) mg/dL Glucose 93 (74-99) mg/dL Calcium 9.2 (8.4-10.2) mg/dL Total Bilirubin 3.4 H 3.2 H (0.2-1.3) mg/dL AST 1441 H 1472 H (17-59) U/L ALT 534 H 537 H (4-49) U/L Alkaline Phosphatase 188 H 192 H (38-126) U/L Total Protein 7.8 7.7 (6.3-8.2) g/dL Albumin 4.0 3.9 (3.5-5.0) g/dL Assessment and Plan Plan: 70-year-old male with abdominal pain, leukocytosis, lactic acidosis and concern for ischemic bowel. On exam, the patient overall has a benign abdominal exam with no significant pain on palpation or percussion. Overall, hemodynamically the patient has been quite stable. Based on laboratory work with significant leukocytosis, transaminitis and lactic acidosis there is a concern for possibility of ischemic episode systemically. Currently, he is not hypotensive or tachycardic. INR is quite elevated at 8.8, which could also indicate further hepatic ischemia or hepatic disease. The patient does not complain of any bloody stool and has had recent endoscopy within the last 2 months with biopsy showing normal colonic mucosa. He is noted to have vascular disease and could have chronic mesenteric ischemia with significant collateral formation due to the chronicity of the vascular disease. Based on the patient's physical exam, he does not have a surgical abdomen as he does not have rebound or guarding or any significant abdominal tenderness on percussion or palpation. However, his laboratory values are concerning. He will need to be closely monitored with serial exams and laboratory monitoring. I did discuss this in depth with the patient. He is aware that further surgical decision making will be based on his progress. He is agreeable with the plan. This case was discussed in depth with the ER physician.
[2020-03-26] MEDS: PIPERACILLIN-TAZOBACTAM 3.375 GM in SODIUM CHLORIDE 0.9% 100 ML IVPB SCH (23:37)
[2020-03-27] MEDS: ONDANSETRON 4 MG/2 ML VIAL IVP PRN ×3 (06:48→20:11)
[2020-03-27 06:57] LABS: Calcium 8.1 mg/dL (8.4-10.2)
[2020-03-27] MEDS ORDERED: PANTOPRAZOLE 40 MG TABLET PO SCH (07:30)
[2020-03-27 08:48] LABS: Anisocytosis Slight; HCT 39.9 % (39.0-53.0); HGB 12.2 gm/dL (13.0-17.5); Hypochromasia Marked; MCH 26.9 pg (25.0-35.0); MCHC 30.4 g/dL (31.0-37.0); MCV 88.5 fL (80.0-100.0); Mean Platelet Volume 9.3; Platelet Count 327 k/uL (150-450); Poikilocytosis Slight; RBC 4.51 m/uL (4.30-5.90); RDW 17.2 % (11.5-15.5); WBC 29.2 k/uL (3.8-10.6)
[2020-03-27 08:49] LABS: Albumin 3.3 g/dL (3.5-5.0); Bilirubin, Conjugated 1.4 mg/dL (0.0-0.3); Bilirubin, Delta 1.3 mg/dL (0.0-0.2); Bilirubin,Unconjugated 1.1 mg/dL (0.0-1.1); Total Bilirubin 3.8 mg/dL (0.2-1.3); Total Protein 6.5 g/dL (6.3-8.2)
[2020-03-27] MEDS: PIPERACILLIN-TAZOBACTAM 3.375 GM in SODIUM CHLORIDE 0.9% 100 ML IVPB SCH ×3 (08:51→23:53)
[2020-03-27] MEDS ORDERED: AMIODARONE 200 MG TAB PO SCH (09:00)
[2020-03-27] MEDS ORDERED: METOPROLOL SUCCINATE (ER) 25 MG TAB.ER.24H PO SCH (09:00)
[2020-03-27 09:16] LABS: Prothrombin Time 117.7 sec (9.0-12.0)
[2020-03-27 09:23] LABS: INR >10.0 (<1.2)
--- NOTE | 2020-03-27 09:34 | P.CRDCN ---
History of Present Illness Consult date: 03/27/20 Requesting physician: Vinicio Murillo Reason for Consult (text): CAD Chief complaint: nausea, vomiting, abdominal pain History of present illness: Summary pleasant 70-year-old gentleman who follows with Dr. Curry in the office. He has a known history of CAD, ischemic cardiomyopathy, atrial fibrillation, anticoagulated on Xarelto, subcutaneous ICD, ventricular tachycardia with ICD discharge in November 2019 at which time he was placed on amiodarone, and a history of multiple ablations in the past. He was readmitted in February at which time he underwent cardiac catheterization which revealed chronically occluded right coronary artery with extensive left to right collaterals and mild to moderate coronary artery disease involving the LAD and circumflex coronary artery with focal obstructive lesions. At that time he was recommended medical management. Echocardiogram at that time showed moderately impaired LV systolic function with an ejection fraction between 35-40%. He presents this admission with complaints of ongoing nausea, vomiting, dry heaves and abdominal discomfort. Symptoms have been recurrent since November. He is noted 30 pound weight loss. Labs on admission showed an elevated white blood cell count of 25,400, INR 8.8, PTT 85.8 sodium 135, potassium 5.7, BUN 20, creatinine 1.61, plasma lactic acid level of 10.4 total bilirubin 3.4, AST 1441, ALT 534 and alk aurelio phosphatase of 188. Chest x-ray showed evidence of congestive heart failure with pleural effusions that is the same or slightly worse than last exam which was from February 2020. EKG shows atrial tachycardia versus atrial flutter with a rate of 91 bpm and left bundle branch block. CT of abdomen and pelvis showed moderate-sized bilateral pleural effusions and suspected compression bilateral lower lobe atelectasis, small amount of ascites and pelvic fluid, wall thickening of the colon particularly of the right colon most likely is related to incomplete distention rather than mild colitis should BE correlated clinically, normal appendix, SMA and celiac axis are diminutive in size and there is extensive vascular disease, no gallstones but small amount of fluid surrounding the gallbladder recommendation for correlation with ultrasound to assess for cholecystitis, slightly nodular contour of liver which is slightly reduced in attenuation and could be associated with hepatic disease correlate for elevated LFTs and hepatocellular disease. Ultrasound of the gallbladder showed contracted gallbladder with no gallstones or dilated ducts. Patient was seen in consultation by surgery and felt not to be a surgical case medications no evidence of acute abdomen. CT labs this morning show white blood cell count 29,200, INR greater than 10, sodium 134, potassium 6.0, BUN 29, creatinine 2.58, total bilirubin 3.8, AST is currently pending with an ALT of 1842 and alkaline phosphatase of 166. On examination patient is lying flat in bed. He has a P elevated. He does complain of some dyspnea on exertion which she has been experiencing for several months. Throughout this course of hospitalizations and not feeling well the patient has quit smoking and quit drinking. He has complai nts of lower extremity edema. No complaints of chest discomfort. No complaints of dizziness. Continues to feel nauseous with dry heaves and occasional vomiting. Abdomen is tender to palpation. Past Medical History Past Medical History: Atrial Fibrillation, Coronary Artery Disease (CAD), Hyperlipidemia, Hypertension, Myocardial Infarction ([place]), Pneumonia Additional Past Medical History / Comment(s): X3 WI'S, ULCER YEARS AGO, br adycardia Last Myocardial Infarction Date:: 2004 History of Any Multi-Drug Resistant Organisms: None Reported Past Surgical History: AICD, Cardiac Ablation, Heart Catheterization With Stent, Orthopedic Surgery, Pacemaker Additional Past Surgical History / Comment(s): CARDIOVERSION, HEART STENTS X7, cardiac ablation x 2 in the past and again om 12-05-15, rt wrist surgery after injury Past Anesthesia/Blood Transfusion Reactions: No Reported Reaction Additional Past Anesthesia/Blood Transfusion Reaction / Comment(s): NEVER HAS HAD GENERAL ANESTHESIA Date of Last Stent Placement:: 2004 Type of Cardiac Device: AICD Device Placement Date:: 2015 Past Psychological History: No Psychological Hx Reported Smoking Status: Former smoker Past Alcohol Use History: None Reported Past Drug Use History: None Reported - Past Family History Father Additional Family Medical History / Comment(s): DAD HAD PACER BUT NO OTHER HX KN OWN Mother Family Medical History: No Reported History Additional Family Medical History / Comment(s): pt stated does'nt know medical hx on parents. Medications and Allergies Home Medications Medication Instructions Recorded Confirmed Type Atorvastatin [Lipitor] 80 mg PO HS 11/27/13 03/26/20 History Enalapril Maleate 2.5 mg PO HS 11/27/13 03/26/20 History Rivaroxaban [Xarelto] 20 mg PO W/SUPPER #30 tab 12/14/19 03/26/20 Rx Amiodarone [Cordarone] 200 mg PO DAILY 02/09/20 03/26/20 History Furosemide [Lasix] 20 mg PO DAILY 02/09/20 03/26/20 History Omeprazole [PriLOSEC] 40 mg PO DAILY 02/09/20 03/26/20 History Spironolactone [Aldactone] 50 mg PO DAILY 02/09/20 03/26/20 History Metoprolol Succinate (ER) [Toprol 25 mg PO DAILY 03/11/20 03/26/20 History XL] Aspirin 81 mg PO DAILY #30 chew 03/14/20 03/26/20 Rx Allergies Allergy/AdvReac Type Severity Reaction Status Date / Time No Known Allergies Allergy Verified 03/26/20 14:55 Physical Exam Vitals: Vital Signs Temp Pulse Pulse Resp BP BP Pulse Ox 03/27/20 04:00 96.0 F L 72 18 82/51 95 03/27/20 00:00 96.4 F L 66 18 83/49 94 L 03/26/20 20:00 97.4 F L 86 20 84/57 94 L 03/26/20 17:41 97.4 F L 118 H 18 102/68 98 03/26/20 17:35 85 94/65 03/26/20 17:30 118 H 18 03/26/20 17:25 95.9 F L 103 H 87/50 03/26/20 17:00 95.9 F L 100 18 113/77 98 03/26/20 16:00 97.9 F 101 H 19 103/62 03/26/20 15:36 97.5 F L 03/26/20 15:00 95 16 112/65 84 L 03/26/20 14:30 105 H 20 90/65 91 L 03/26/20 13:30 96 22 96/66 03/26/20 13:00 97.1 F L 84 20 94/81 03/26/20 12:00 84 18 108/79 93 L 03/26/20 11:30 98 18 116/83 92 L 03/26/20 11:26 91 12 94 L 03/26/20 11:02 98.6 F 50 L 18 95 Intake and Output 03/26/20 03/27/20 03/27/20 22:59 06:59 14:59 Intake Total 100 Balance 100 Intake: Intake, IV Titration 100 Amount Piperacillin-Tazobactam 3 100 .375 gm In Sodium Chloride 0.9% 100 ml @ 200 mls/hr IVPB Q8HR [facility] Rx#:[id number] Other: Weight 69.853 kg 78 kg PHYSICAL EXAMINATION: This is a 70-year-old male in no apparent distress at the time of my examination. VITAL SIGNS: Blood pressure 82/51, heart rate 72, respirations 18, temp 96.0F. Patient is 95 % on room air. HEENT: Head is atraumatic, normocephalic. Pupils are equal, round. Sclerae anicteric. Conjunctivae are clear. Mucous membranes of the mouth are moist. Neck is supple. There is no elevated jugular venous pressure. No carotid bruit is heard. CHEST EXAMINATION: Clear are diminished bilateral bases with faint crackles noted to the right base. Respirations even and nonlabored. HEART EXAMINATION: Heart irregular irregular, positive S1 and S2. No S3. No S4. No clicks, rubs or murmurs. ABDOMEN: Soft, with tenderness noted to the mid abdomen, guarding present. Bowel sounds are heard. EXTREMITIES: 2+ peripheral pulses no evidence of 1+ peripheral edema and no calf tenderness noted. NEUROLOGIC EXAMINATION: Patient is awake, alert and oriented x3. Results 03/27/20 06:10 03/27/20 06:10 Cardiac Enzymes 03/26/20 03/26/20 03/27/20 Range/Units 11:46 11:46 06:10 AST 1441 H 1472 H Cancelled (17-59) U/L Coagulation 03/26/20 Range/Units 15:59 PT 85.8 H (9.0-12.0) sec APTT 38.8 H (22.0-30.0) sec CBC 03/26/20 03/27/20 Range/Units 11:46 06:10 WBC 25.4 H 29.2 H (3.8-10.6) k/uL RBC 5.10 4.51 (4.30-5.90) m/uL Hgb 13.6 12.2 L (13.0-17.5) gm/dL Hct 43.3 39.9 (39.0-53.0) % Plt Count 384 327 (150-450) k/uL Comprehensive Metabolic Panel 03/26/20 03/26/20 03/27/20 Range/Units 11:46 11:46 06:10 Sodium 135 L 134 L (137-145) mmol/L Potassium 5.7 H 6.0 H (3.5-5.1) mmol/L Chloride 97 L 100 (98-107) mmol/L Carbon Dioxide 18 L 17 L (22-30) mmol/L BUN 20 29 H (9-20) mg/dL Creatinine 1.61 H 2.58 H (0.66-1.25) mg/dL Glucose 93 88 (74-99) mg/dL Calcium 9.2 8.1 L (8.4-10.2) mg/dL Unconjugated Bilirubin 1.6 H Cancelled (0.0-1.1) mg/dL AST 1441 H 1472 H Cancelled (17-59) U/L ALT 534 H 537 H Cancelled (4-49) U/L Alkaline Phosphatase 188 H 192 H Cancelled (38-126) U/L Total Protein 7.8 7.7 Cancelled (6.3-8.2) g/dL Albumin 4.0 3.9 Cancelled (3.5-5.0) g/dL 03/27/20 Range/Units 06:10 Sodium (137-145) mmol/L Potassium (3.5-5.1) mmol/L Chloride (98-107) mmol/L Carbon Dioxide (22-30) mmol/L BUN (9-20) mg/dL Creatinine (0.66-1.25) mg/dL Glucose (74-99) mg/dL Calcium (8.4-10.2) mg/dL Unconjugated Bilirubin 1.1 (0.0-1.1) mg/dL AST (17-59) U/L ALT 1842 H (4-49) U/L Alkaline Phosphatase 166 H (38-126) U/L Total Protein 6.5 (6.3-8.2) g/dL Albumin 3.3 L (3.5-5.0) g/dL Current Medications Generic Name Dose Route Start Last Admin Trade Name Freq PRN Reason Stop Dose Admin Hydromorphone HCl 0.5 mg 03/26/20 14:38 03/26/20 14:42 Hydromorphone 0.5 Mg/0.5 Ml Syringe IVP 0.5 mg Q4HR PRN Administration Pain Piperacillin Sod/Tazobactam 100 mls @ 200 mls/hr 03/27/20 00:00 03/27/20 08:51 Sod 3.375 gm/ Sodium Chloride IVPB 200 mls/hr Q8HR [facility] Administration Metoprolol Succinate 25 mg 03/27/20 09:00 03/27/20 08:51 Metoprolol Succinate (Er) 25 Mg Tab.Er.24h PO 25 mg DAILY [facility] Administration Ondansetron HCl 4 mg 03/27/20 06:43 03/27/20 06:48 Ondansetron 4 Mg/2 Ml Vial IVP 4 mg Q6HR PRN Administration Nausea And Vomiting Pantoprazole Sodium 40 mg 03/27/20 07:30 03/27/20 06:34 Pantoprazole 40 Mg Tablet PO 40 mg DAILY@0730 [facility]ENT Administration Intake and Output 03/26/20 03/27/20 03/27/20 22:59 06:59 14:59 Intake Total 100 Balance 100 Intake: Intake, IV Titration 100 Amount Piperacillin-Tazobactam 3 100 .375 gm In Sodium Chloride 0.9% 100 ml @ 200 mls/hr IVPB Q8HR [facility] Rx#:[id number] Other: Weight 69.853 kg 78 kg 03/27/20 06:10 03/27/20 06:10 Assessment and Plan Assessment: #1 Symptoms of nausea, vomiting, and abdominal pain for the past several months with a 30 pound weight loss #2 significant leukocytosis, transaminitis and lactic acidosis #3 CAD #4 ischemic cardiomyopathy status post ICD #5 history of ventricular tachycardia with ICD discharge in November 2019, on amiodarone #6 history of nicotine dependence, currently in remission #7 history of alcohol abuse, currently in remission Plan: From cardiology perspective, there is concern for amiodarone toxicity. We will stop the amiodarone. We will check a TSH. Continue to follow renal function, INR, and liver enzymes closely. We will continue to follow the patient right further recommendations accordingly. PSYCH ARNP note has been reviewed, I agree with a documented findings and plan of care. Patient was seen and examined.
[2020-03-27] MEDS ORDERED: PHYTONADIONE 10 MG in SODIUM CHLORIDE 0.9% 50 ML IVPB STA (09:49)
--- NOTE | 2020-03-27 10:25 | P.PN ---
Subjective Progress Note Date: 03/27/20 Patient seen and examined at bedside. States there has been no change from previous exam. Did have an emesis episode this morning. Denies any bowel movements. Objective - Vital Signs Vital signs: Vital Signs Temp 96.0 F L 03/27/20 04:00 Pulse 72 03/27/20 04:00 Resp 18 03/27/20 04:00 BP 82/51 03/27/20 04:00 Pulse Ox 95 03/27/20 04:00 Intake & Output 03/26/20 03/27/20 03/27/20 18:59 06:59 18:59 Intake Total 100 Balance 100 Weight 69.853 kg 78 kg Intake: Intake, IV Titration 100 Amount Piperacillin-Tazobactam 3 100 .375 gm In Sodium Chloride 0.9% 100 ml @ 200 mls/hr IVPB Q8HR [facility] Rx#:[id number] - Constitutional General appearance: Present: cooperative - EENT Eyes: Present: scleral icterus ENT: Present: hearing grossly normal - Neck Neck: Present: normal ROM - Respiratory Details: No significant difficulty with respiration - Gastrointestinal Gastrointestinal Comment(s): Soft, mild tenderness to deep palpation in the epigastrium, nontender to percussion throughout his abdomen, no rebound tenderness, no guarding - Musculoskeletal Musculoskeletal: Present: generalized weakness - Psychiatric Psychiatric: Present: A&O x's 3 - Labs CBC & Chem 7: 03/27/20 06:10 03/27/20 06:10 Labs: Abnormal Lab Results - Last 24 Hours (Table) 03/26/20 03/26/20 03/26/20 Range/Units 11:46 11:46 11:46 WBC 25.4 H (3.8-10.6) k/uL Hgb (13.0-17.5) gm/dL MCHC (31.0-37.0) g/dL RDW 17.3 H (11.5-15.5) % Neutrophils # 20.8 H (1.3-7.7) k/uL Monocytes # 2.6 H (0-1.0) k/uL PT (9.0-12.0) sec INR (<1.2) APTT (22.0-30.0) sec ABG pH (7.35-7.45) ABG pCO2 (35-45) mmHg ABG pO2 (83-108) mmHg ABG HCO3 (21-25) mmol/L ABG Total CO2 (19-24) mmol/L ABG O2 Saturation (94-97) % Sodium 135 L (137-145) mmol/L Potassium 5.7 H (3.5-5.1) mmol/L Chloride 97 L (98-107) mmol/L Carbon Dioxide 18 L (22-30) mmol/L BUN (9-20) mg/dL Creatinine 1.61 H (0.66-1.25) mg/dL Plasma Lactic Acid Geoff 10.4 H* (0.7-2.0) mmol/L Calcium (8.4-10.2) mg/dL Total Bilirubin 3.4 H (0.2-1.3) mg/dL Conjugated Bilirubin (0.0-0.3) mg/dL Unconjugated Bilirubin (0.0-1.1) mg/dL Delta Bilirubin (0.0-0.2) mg/dL AST 1441 H (17-59) U/L ALT 534 H (4-49) U/L Alkaline Phosphatase 188 H (38-126) U/L Albumin (3.5-5.0) g/dL Urine Protein (Negative) Hyaline Casts (0-2) /lpf Urine Mucus (None) /hpf 03/26/20 03/26/20 03/26/20 Range/Units 11:46 13:10 14:29 WBC (3.8-10.6) k/uL Hgb (13.0-17.5) gm/dL MCHC (31.0-37.0) g/dL RDW (11.5-15.5) % Neutrophils # (1.3-7.7) k/uL Monocytes # (0-1.0) k/uL PT (9.0-12.0) sec INR (<1.2) APTT (22.0-30.0) sec ABG pH (7.35-7.45) ABG pCO2 (35-45) mmHg ABG pO2 (83-108) mmHg ABG HCO3 (21-25) mmol/L ABG Total CO2 (19-24) mmol/L ABG O2 Saturation (94-97) % Sodium (137-145) mmol/L Potassium (3.5-5.1) mmol/L Chloride (98-107) mmol/L Carbon Dioxide (22-30) mmol/L BUN (9-20) mg/dL Creatinine (0.66-1.25) mg/dL Plasma Lactic Acid Geoff 11.2 H* (0.7-2.0) mmol/L Calcium (8.4-10.2) mg/dL Total Bilirubin 3.2 H (0.2-1.3) mg/dL Conjugated Bilirubin 0.4 H (0.0-0.3) mg/dL Unconjugated Bilirubin 1.6 H (0.0-1.1) mg/dL Delta Bilirubin 1.2 H (0.0-0.2) mg/dL AST 1472 H (17-59) U/L ALT 537 H (4-49) U/L Alkaline Phosphatase 192 H (38-126) U/L Albumin (3.5-5.0) g/dL Urine Protein 1+ H (Negative) Hyaline Casts 43 H (0-2) /lpf Urine Mucus Few H (None) /hpf 03/26/20 03/26/20 03/26/20 Range/Units 15:12 15:59 18:07 WBC (3.8-10.6) k/uL Hgb (13.0-17.5) gm/dL MCHC (31.0-37.0) g/dL RDW (11.5-15.5) % Neutrophils # (1.3-7.7) k/uL Monocytes # (0-1.0) k/uL PT 85.8 H (9.0-12.0) sec INR 8.8 H* (<1.2) APTT 38.8 H (22.0-30.0) sec ABG pH 7.22 L (7.35-7.45) ABG pCO2 30 L (35-45) mmHg ABG pO2 123 H (83-108) mmHg ABG HCO3 12 L (21-25) mmol/L ABG Total CO2 13 L (19-24) mmol/L ABG O2 Saturation 97.7 H (94-97) % Sodium (137-145) mmol/L Potassium (3.5-5.1) mmol/L Chloride (98-107) mmol/L Carbon Dioxide (22-30) mmol/L BUN (9-20) mg/dL Creatinine (0.66-1.25) mg/dL Plasma Lactic Acid Geoff 12.6 H* (0.7-2.0) mmol/L Calcium (8.4-10.2) mg/dL Total Bilirubin (0.2-1.3) mg/dL Conjugated Bilirubin (0.0-0.3) mg/dL Unconjugated Bilirubin (0.0-1.1) mg/dL Delta Bilirubin (0.0-0.2) mg/dL AST (17-59) U/L ALT (4-49) U/L Alkaline Phosphatase (38-126) U/L Albumin (3.5-5.0) g/dL Urine Protein (Negative) Hyaline Casts (0-2) /lpf Urine Mucus (None) /hpf 03/27/20 03/27/20 03/27/20 Range/Units 06:10 06:10 06:10 WBC 29.2 H (3.8-10.6) k/uL Hgb 12.2 L (13.0-17.5) gm/dL MCHC 30.4 L (31.0-37.0) g/dL RDW 17.2 H (11.5-15.5) % Neutrophils # (1.3-7.7) k/uL Monocytes # (0-1.0) k/uL PT (9.0-12.0) sec INR (<1.2) APTT (22.0-30.0) sec ABG pH (7.35-7.45) ABG pCO2 (35-45) mmHg ABG pO2 (83-108) mmHg ABG HCO3 (21-25) mmol/L ABG Total CO2 (19-24) mmol/L ABG O2 Saturation (94-97) % Sodium 134 L (137-145) mmol/L Potassium 6.0 H (3.5-5.1) mmol/L Chloride (98-107) mmol/L Carbon Dioxide 17 L (22-30) mmol/L BUN 29 H (9-20) mg/dL Creatinine 2.58 H (0.66-1.25) mg/dL Plasma Lactic Acid Geoff (0.7-2.0) mmol/L Calcium 8.1 L (8.4-10.2) mg/dL Total Bilirubin 3.8 H (0.2-1.3) mg/dL Conjugated Bilirubin 1.4 H (0.0-0.3) mg/dL Unconjugated Bilirubin (0.0-1.1) mg/dL Delta Bilirubin 1.3 H (0.0-0.2) mg/dL AST 7392 H (17-59) U/L ALT 1842 H (4-49) U/L Alkaline Phosphatase 166 H (38-126) U/L Albumin 3.3 L (3.5-5.0) g/dL Urine Protein (Negative) Hyaline Casts (0-2) /lpf Urine Mucus (None) /hpf 03/27/20 Range/Units 08:53 WBC (3.8-10.6) k/uL Hgb (13.0-17.5) gm/dL MCHC (31.0-37.0) g/dL RDW (11.5-15.5) % Neutrophils # (1.3-7.7) k/uL Monocytes # (0-1.0) k/uL PT 117.7 H (9.0-12.0) sec INR >10.0 H* (<1.2) APTT (22.0-30.0) sec ABG pH (7.35-7.45) ABG pCO2 (35-45) mmHg ABG pO2 (83-108) mmHg ABG HCO3 (21-25) mmol/L ABG Total CO2 (19-24) mmol/L ABG O2 Saturation (94-97) % Sodium (137-145) mmol/L Potassium (3.5-5.1) mmol/L Chloride (98-107) mmol/L Carbon Dioxide (22-30) mmol/L BUN (9-20) mg/dL Creatinine (0.66-1.25) mg/dL Plasma Lactic Acid Geoff (0.7-2.0) mmol/L Calcium (8.4-10.2) mg/dL Total Bilirubin (0.2-1.3) mg/dL Conjugated Bilirubin (0.0-0.3) mg/dL Unconjugated Bilirubin (0.0-1.1) mg/dL Delta Bilirubin (0.0-0.2) mg/dL AST (17-59) U/L ALT (4-49) U/L Alkaline Phosphatase (38-126) U/L Albumin (3.5-5.0) g/dL Urine Protein (Negative) Hyaline Casts (0-2) /lpf Urine Mucus (None) /hpf Assessment and Plan Plan: The patient is having worsening of leukocytosis, lactic acidosis, creatinine and transaminases. This case was discussed in depth with the patient's admitting physician, Dr. Murillo, and gastroenterology with Dr. Curry. At this point, patient's INR is greater than 10 and AST level is greater than 7000 along with worsening kidney function. He has had some hypotensive episodes. Overall, this does appear to be a picture of global hypoperfusion resulting in ischemic hepatitis and kidney injury. It is unclear whether this is a result of CHF exacerbation. At this point, the patient has been given vitamin K based on INR level greater than 10. Based on this INR level and overall global hypoperfusion, he is a poor surgical candidate for high risk of intraoperative bleeding. I would recommend patient have intensive care evaluation. Poor prognosis at this point.
[2020-03-27 10:39] LABS: Band Neutrophils % 1 %; Crenated RBC Present; Lymphocytes # (M) 0.88 k/uL (1.0-4.8); Monocytes # (M) 2.04 k/uL (0-1.0); Myelocytes # (M) 0.29 k/uL (0); Myelocytes % 1 %; Neutrophils % (M) 89 %; Nucleated Red Blood Cells 0 /100 WBC (0-0); Polychromasia Present; RBC Fragments Present; Total Cells Counted 200
--- NOTE | 2020-03-27 12:52 | CONS ---
CONSULTATION DATE OF SERVICE: March 27, 2020 REASON FOR CONSULTATION: Elevated LFTs and jaundice and abdominal pain. HISTORY OF PRESENT ILLNESS: The patient is a 70-year-old pleasant white male with history of congestive heart failure, coronary artery disease, atrial fibrillation, on Xarelto, came to the emergency room complaining of severe worsening shortness of breath, abdominal pain, nausea, vomiting on and off for the last 3 months duration. The patient states that his symptoms have been going on since November. Initially has these episodes once or twice a week and resolves. As a part of workup he did have a EGD/colonoscopy in February of this year and according to the patient, he was noted to have small colon polyps. His symptoms continued to progressively get worse and at the time of admission to the hospital yesterday he was noted to have lactic acidosis with lactic acid at 12.6 and elevated serum transaminases with a bilirubin of 3.2. AST and ALT were 172 and 577 respectively and alkaline phosphatase is 192. He did have a CT of the abdomen and pelvis done in the emergency room that showed moderate-sized bilateral pleural effusions. Small amount of ascites. Wall thickening of the colon, mostly in the right colon, but no evidence of gallstones or biliary ductal dilation. Also there was slightly nodular contour of the liver suspicious for liver cirrhosis. On further questioning, the patient denies any history of chronic liver disease. No history of jaundice or hepatitis in the past. He denies any fever, chills, or night sweats. He also had ultrasound of the gallbladder done that showed no evidence of gallstones or biliary ductal dilation and there was a contracted gallbladder. Surgery was consulted by Dr. Younger with whom I discussed the case this morning. PAST MEDICAL HISTORY: Significant for atrial fibrillation, on Xarelto, last dose was yesterday, history of congestive heart failure, AICD placement November of 2019, history of coronary artery disease, hypertension, hyperlipidemia. PAST SURGICAL HISTORY: AICD implantation, cardiac ablation, cardiac catheterization with stent placement. MEDICATIONS: Medications at home include Lipitor and aspirin, Xarelto, Cordarone, Lasix, Prilosec, Aldactone, metoprolol, and aspirin. ALLERGIES: None. SOCIAL HISTORY: A former smoker and heavy alcohol use in the past, quit drinking 7 years ago. FAMILY HISTORY: Father had coronary artery disease. Mother unknown. REVIEW OF SYSTEMS: Cardiopulmonary: He does complain of severe shortness of breath but no chest pain. Neurology unremarkable. Psychiatric unremarkable. ENT: Vision unremarkable. GI as mentioned above. Constitutional: Weight loss of 20 pounds. No fever, chills, night sweats. ENT: Vision unremarkable. Hematology unremarkable. PHYSICAL EXAMINATION: He appears comfortable. No apparent distress. VITAL SIGNS: Stable. Blood pressure is 82/51, pulse is 72. Temperature 96. HEENT examination unremarkable. Conjunctivae pink. Sclerae anicteric. Oral cavity no oral lesions. NECK: No JVD or lymph node enlargement. Chest was clear to auscultation. Decreased breath sounds bilaterally. HEART: Regular rate and rhythm. ABDOMEN: Soft, it was nondistended. There was tenderness in the epigastric area and some tenderness in the periumbilical area. Rest of the abdomen was benign. There was no rebound or rigidity. Extremities: No pedal edema. Neuro: He is alert and oriented x3. No focal deficits. LABS: From yesterday WBC 25.4, hemoglobin 13, platelets normal. Basic metabolic panel showed sodium 135, potassium 5.7, BUN was 20, creatinine 1.61, PTT 85.8, and INR is 8.8 today. Today PTT is 117 and INR of more than 10. AST and ALT were 1472 and 537 yesterday with a bilirubin of 3.2. Today bilirubin is 3.8. AST and ALT are pending. Albumin 3.3, alkaline phosphatase 166. Lactic acid was 12.6, WBC is 29.2, hemoglobin 12.2, and platelets 327. IMPRESSION: 1. This is a patient who presented to hospital with worsening shortness of breath, diffuse abdominal pain associated with nausea, vomiting, not feeling well since November of last year. He has weight loss of 20 pounds. At the time of admission to the hospital, he was noted to have leukocytosis and increased serum transaminases as well as bilirubin up to 3.8 g/dL. CT scan and ultrasound showed no evidence of gallstones or biliary ductal dilation. He has longstanding history of ischemic cardiomyopathy with an ejection fraction of 30% and status post AICD implantation. He was also noted to have lactic acidosis at presentation. The clinical picture is more consistent with global hypoperfusion causing ischemic hepatitis and possibility of small bowel ischemia cannot be excluded. His BUN and creatinine also have increased today consistent with hypoperfusion state and this explains the lactic acidosis. I doubt we are dealing with ascending cholangitis at the present time, given the imaging studies. The patient was already started on Zosyn yesterday because of leukocytosis. 2. History of congestive heart failure and ischemic cardiomyopathy. 3. Atrial fibrillation on Xarelto, currently on hold. INR is significantly elevated. 4. Possible cirrhosis of the liver based on imaging studies, the CAT scan showed nodular-appearing liver which appears to be decompensated with the current clinical situation. 5. Severe leukocytosis on broad-spectrum antibiotics. RECOMMENDATIONS: 1. Continue with broad-spectrum antibiotics. 2. I had a lengthy discussion with Dr. Younger. At this time we will plan on repeating CT with oral contrast for clinical concern of small bowel mesenteric ischemia. 3. Will give vitamin K to reverse the coagulopathy. 4. Continue with broad-spectrum antibiotics. 5. In regard to the serum transaminases,we will avoid hepatotoxic medications. Hold off on statins for now. Monitor them closely and follow. 6. We will follow with you. Thank you for this consultation. MMODL / IJN: [id number] /
--- NOTE | 2020-03-27 14:18 | P.CNPUL ---
History of Present Illness Consult date: 03/27/20 Reason for consult: pleural effusion Chief complaint: Nausea vomiting and abdominal pain. History of present illness: This is a 70-year-old white male with history of multiple medical problems including coronary artery disease, ischemic cardiomyopathy, LV dysfunction, chronic systolic congestive heart failure, chronic atrial fibrillation, maintained on Xarelto, history of ventricular tachycardia with ICD discharge, in November of 2019, history of multiple ablations in the past. I saw this patient back in January for pleural effusion, underwent thoracentesis on the right side, and I was able to drain 700 mL of transudative pleural effusion felt to be cardiac in nature. Patient normally follows up with Dr. Winchester regarding his chronic cardiac condition. Patient presented this time with a few days' history of nausea vomiting and abdominal pain. CT of the abdomen and pelvis showed moderate-sized bilateral pleural effusions, right more so than left, small amount of ascites, and clearly the patient is back again with systolic congestive heart failure and it is not surprising to see pleural effusion in [place] e[place] with cardiomyopathy, LV dysfunction, and previous thoracentesis showing transudate of pleural effusion related to CHF. The patient had no significant pulmonary symptoms, he does have history of chronic shortness of breath, but he tells me that his pulmonary status now is no different from his baseline. CT of the abdomen and pelvis was also concerning for wall thickening of the colon particularly right colon. There was also evidence of extensive vascular disease, and the radiologist felt that the patient has mostly findings of colitis or could be infectious or ischemic in nature. Gallbladder ultrasound showed mostly contracted gallbladder, no gallstones or dilated ducts. Patient was seen by surgery on consultation, and considering his extensive cardiac history, patient is considered a very high surgical risk, and the recommendation is to treat the patient conservatively, not to mention the patient INR was extremely elevated upon admission, and that being corrected accordingly. At any rate the reason I was asked to see the patient was mostly because of the bilateral pleural effusions, right more so than left, again the patient has no significant pulmonary symptoms, and his symptoms seem to be related to his GI issues with nausea vomiting abdominal pain and 30 pound weight loss. Not to mention the patient had significant leukocytosis, increased liver enzymes, and lactic acidosis. I did recommend however ultrasound of the chest, in the meantime we'll recommend conservative measures, diuretics as needed, may or may not require thoracentesis. Review of Systems CONSTITUTIONAL: Denies fever or chills. However the patient describes significant weight loss over the last few months. HEENT: Negative. CARDIOVASCULAR: As noted in HPI. RESPIRATORY: As noted in HPI. GASTROINTESTINAL: As noted in HPI, nausea vomiting and abdominal pain. HEMATOLOGIC: No clotting bleeding or bruising. GENITOURINARY: Unit. SKIN: Denies pruitis. Denies rash. Endocrine: Denies any heat or cold intolerance. Neurologic: Negative. Psychiatric: Negative. Past Medical History Past Medical History: Atrial Fibrillation, Coronary Artery Disease (CAD), Hyperlipidemia, Hypertension, Myocardial Infarction ([place]), Pneumonia Additional Past Medical History / Comment(s): X3 [place]'S, ULCER YEARS AGO, bradycardia Last Myocardial Infarction Date:: 2004 History of Any Multi-Drug Resistant Organisms: None Reported Past Surgical History: AICD, Cardiac Ablation, Heart Catheterization With Stent, Orthopedic Surgery, Pacemaker Additional Past Surgical History / Comment(s): CARDIOVERSION, HEART STENTS X7, cardiac ablation x 2 in the past and again om 12-05-15, rt wrist surgery after injury Past Anesthesia/Blood Transfusion Reactions: No Reported Reaction Additional Past Anesthesia/Blood Transfusion Reaction / Comment(s): NEVER HAS HAD GENERAL ANESTHESIA Date of Last Stent Placement:: 2004 Type of Cardiac Device: AICD Device Placement Date:: 2015 Past Psychological History: No Psychological Hx Reported Smoking Status: Former smoker Past Alcohol Use History: None Reported Past Drug Use History: None Reported - Past Family History Father Additional Family Medical History / Comment(s): DAD HAD PACER BUT NO OTHER HX KNOWN Mother Family Medical History: No Reported History Additional Family Medical History / Comment(s): pt stated does'nt know medical hx on parents. Medications and Allergies Home Medications Medication Instructions Recorded Confirmed Type Atorvastatin [Lipitor] 80 mg PO HS 11/27/13 03/26/20 History Enalapril Maleate 2.5 mg PO HS 11/27/13 03/26/20 History Rivaroxaban [Xarelto] 20 mg PO W/SUPPER #30 tab 12/14/19 03/26/20 Rx Amiodarone [Cordarone] 200 mg PO DAILY 02/09/20 03/26/20 History Furosemide [Lasix] 20 mg PO DAILY 02/09/20 03/26/20 History Omeprazole [PriLOSEC] 40 mg PO DAILY 02/09/20 03/26/20 History Spironolactone [Aldactone] 50 mg PO DAILY 02/09/20 03/26/20 History Metoprolol Succinate (ER) [Toprol 25 mg PO DAILY 03/11/20 03/26/20 History XL] Aspirin 81 mg PO DAILY #30 chew 03/14/20 03/26/20 Rx Allergies Allergy/AdvReac Type Severity Reaction Status Date / Time No Known Allergies Allergy Verified 03/26/20 14:55 Physical Exam Vitals: Vital Signs Temp Pulse Pulse Pulse Resp BP BP 03/27/20 08:00 97.6 F 74 78 18 90/41 03/27/20 04:00 96.0 F L 72 18 82/51 03/27/20 00:00 96.4 F L 66 18 83/49 03/26/20 20:00 97.4 F L 86 20 84/57 03/26/20 17:41 97.4 F L 118 H 18 102/68 03/26/20 17:35 85 94/65 03/26/20 17:30 118 H 18 03/26/20 17:25 95.9 F L 103 H 87/50 03/26/20 17:00 95.9 F L 100 18 113/77 03/26/20 16:00 97.9 F 101 H 19 103/62 03/26/20 15:36 97.5 F L 03/26/20 15:00 95 16 112/65 03/26/20 14:30 105 H 20 90/65 Pulse Ox 03/27/20 08:00 98 03/27/20 04:00 95 03/27/20 00:00 94 L 03/26/20 20:00 94 L 03/26/20 17:41 98 03/26/20 17:35 03/26/20 17:30 03/26/20 17:25 03/26/20 17:00 98 03/26/20 16:00 03/26/20 15:36 03/26/20 15:00 84 L 03/26/20 14:30 91 L Intake and Output 03/26/20 03/27/20 03/27/20 22:59 06:59 14:59 Intake Total 100 0 Balance 100 0 Intake: Intake, IV Titration 100 Amount Piperacillin-Tazobactam 3 100 .375 gm In Sodium Chloride 0.9% 100 ml @ 200 mls/hr IVPB Q8HR [facility] Rx#:[id number] Oral 0 Other: Weight 69.853 kg 78 kg 78 kg GENERAL EXAM: Alert, very pleasant, 70-year-old frail looking white male, on room air, in no distress. HEAD: Normocephalic/atraumatic. HEENT: PERRLA, EOMI, positive icterus , dry mucous membranes. CHEST: No chest wall deformity. Symmetrical expansion. LUNGS: Symmetrical chest expansion, crackles at the right base mostly, left side is relatively clear. CVS: Irregular rate and rhythm, normal S1 and S2, no gallops, 2/6 systolic murmur thought the precordium. ABDOMEN: Soft,, mild tenderness to deep palpation of the epigastric region, nor guarding, no rebound tenderness. EXTREMITIES: No clubbing, no edema, no cyanosis, 2+ pulses and upper and lower extremities. MUSCULOSKELETAL: Muscle strength and tone normal. SPINE: No scoliosis or deformity SKIN: No rashes CENTRAL NERVOUS SYSTEM: Alert and oriented -3. No focal deficits, tone is normal in all 4 extremities. PSYCHIATRIC: Alert and oriented -3. Appropriate affect. Intact judgment and insight. Results - Laboratory Findings CBC and BMP: 03/27/20 06:10 03/27/20 06:10 ABG ABG pH 7.22 (7.35-7.45) L 03/26/20 15:12 ABG pCO2 30 mmHg (35-45) L 03/26/20 15:12 ABG pO2 123 mmHg (83-108) H 03/26/20 15:12 ABG O2 Saturation 97.7 % (94-97) H 03/26/20 15:12 PT/INR, D-dimer PT 117.7 sec (9.0-12.0) H 03/27/20 08:53 INR >10.0 (<1.2) H* 03/27/20 08:53 Abnormal lab findings: Abnormal Labs 03/26/20 03/26/20 03/26/20 11:46 11:46 11:46 WBC 25.4 H Hgb MCHC RDW 17.3 H Neutrophils # 20.8 H Neutrophils # (Manual) Lymphocytes # (Manual) Monocytes # 2.6 H Monocytes # (Manual) Myelocytes # (Manual) PT INR APTT ABG pH ABG pCO2 ABG pO2 ABG HCO3 ABG Total CO2 ABG O2 Saturation Sodium 135 L Potassium 5.7 H Chloride 97 L Carbon Dioxide 18 L BUN Creatinine 1.61 H Plasma Lactic Acid Geoff 10.4 H* Calcium Total Bilirubin 3.4 H Conjugated Bilirubin Unconjugated Bilirubin Delta Bilirubin AST 1441 H ALT 534 H Alkaline Phosphatase 188 H Albumin Urine Protein Hyaline Casts Urine Mucus 03/26/20 03/26/20 03/26/20 11:46 13:10 14:29 WBC Hgb MCHC RDW Neutrophils # Neutrophils # (Manual) Lymphocytes # (Manual) Monocytes # Monocytes # (Manual) Myelocytes # (Manual) PT INR APTT ABG pH ABG pCO2 ABG pO2 ABG HCO3 ABG Total CO2 ABG O2 Saturation Sodium Potassium Chloride Carbon Dioxide BUN Creatinine Plasma Lactic Acid Geoff 11.2 H* Calcium Total Bilirubin 3.2 H Conjugated Bilirubin 0.4 H Unconjugated Bilirubin 1.6 H Delta Bilirubin 1.2 H AST 1472 H ALT 537 H Alkaline Phosphatase 192 H Albumin Urine Protein 1+ H Hyaline Casts 43 H Urine Mucus Few H 03/26/20 03/26/20 03/26/20 15:12 15:59 18:07 WBC Hgb MCHC RDW Neutrophils # Neutrophils # (Manual) Lymphocytes # (Manual) Monocytes # Monocytes # (Manual) Myelocytes # (Manual) PT 85.8 H INR 8.8 H* APTT 38.8 H ABG pH 7.22 L ABG pCO2 30 L ABG pO2 123 H ABG HCO3 12 L ABG Total CO2 13 L ABG O2 Saturation 97.7 H Sodium Potassium Chloride Carbon Dioxide BUN Creatinine Plasma Lactic Acid Geoff 12.6 H* Calcium Total Bilirubin Conjugated Bilirubin Unconjugated Bilirubin Delta Bilirubin AST ALT Alkaline Phosphatase Albumin Urine Protein Hyaline Casts Urine Mucus 03/27/20 03/27/20 03/27/20 06:10 06:10 06:10 WBC 29.2 H Hgb 12.2 L MCHC 30.4 L RDW 17.2 H Neutrophils # Neutrophils # (Manual) 26.20 H Lymphocytes # (Manual) 0.88 L Monocytes # Monocytes # (Manual) 2.04 H Myelocytes # (Manual) 0.29 H PT INR APTT ABG pH ABG pCO2 ABG pO2 ABG HCO3 ABG Total CO2 ABG O2 Saturation Sodium 134 L Potassium 6.0 H Chloride Carbon Dioxide 17 L BUN 29 H Creatinine 2.58 H Plasma Lactic Acid Geoff Calcium 8.1 L Total Bilirubin 3.8 H Conjugated Bilirubin 1.4 H Unconjugated Bilirubin Delta Bilirubin 1.3 H AST 7392 H ALT 1842 H Alkaline Phosphatase 166 H Albumin 3.3 L Urine Protein Hyaline Casts Urine Mucus 03/27/20 08:53 WBC Hgb MCHC RDW Neutrophils # Neutrophils # (Manual) Lymphocytes # (Manual) Monocytes # Monocytes # (Manual) Myelocytes # (Manual) PT 117.7 H INR >10.0 H* APTT ABG pH ABG pCO2 ABG pO2 ABG HCO3 ABG Total CO2 ABG O2 Saturation Sodium Potassium Chloride Carbon Dioxide BUN Creatinine Plasma Lactic Acid Geoff Calcium Total Bilirubin Conjugated Bilirubin Unconjugated Bilirubin Delta Bilirubin AST ALT Alkaline Phosphatase Albumin Urine Protein Hyaline Casts Urine Mucus - Diagnostic Findings Chest x-ray: image reviewed (Consistent with CHF and bilateral pleural effu sions, right more so than left) Assessment and Plan Assessment: Impression: Bilateral pleural effusions secondary to chronic systolic congestive heart failure secondary to ischemic cardiomyopathy and LV dysfunction. Patient had an ejection fraction of 30 percent. Suspect hypoperfusional state, seems to be a picture of cardiogenic shock. Chronic atrial fibrillation. Possible liver cirrhosis. Severe leukocytosis, possible abdominal sepsis, patient is on broad-spectrum antibiotics. Severe lactic acidosis, possible ischemic bowel and shocked liver. Secondary to hypoperfusional state. Recommendation: Continue broad-spectrum antibiotics. Continue vitamin K to reverse coagulopathy. We'll arrange for the patient be transferred to the ICU. No plans to do thoracentesis at this point as the patient has no active pulmonary symptoms Will recommend ultrasound of the chest to be done in a.m., and we'll decide accordingly, however the pleural effusion is the least of this patient's problem. Prognosis is extremely poor and guarded, Overall clinical picture does not look promising, not to mention the patient is an extremely poor surgical candidate for any intervention. We'll continue to follow with other consultants including cardiology gastroenterology and surgery. Time with Patient: Greater than 30
--- NOTE | 2020-03-27 15:08 | P.NPCON ---
History of Present Illness - Reason for Consult Consult date: 03/27/20 acute renal failure - Chief Complaint Acute kidney injury - History of Present Illness Admitted to the hospital with abdominal pain nausea vomiting. Baseline creatinine 1.0-1.1 MG per DL. Admitted with a creatinine of 1.6 MG per DL, increased to 2.5 MG per DL today. Potassium is around 6.0 MG per DL. Still complaining of abdominal pain. Computed tomography scan with IV contrast consistent with colitis. On admission lactic acid was 10 increased to 12 today. Denies any NSAID use. He was hypotensive on admission. Urine output not documented. Home medications include enalapril and Aldactone. Review of Systems Constitutional: Reports as per HPI Past Medical History Past Medical History: Atrial Fibrillation, Coronary Artery Disease (CAD), Hyperlipidemia, Hypertension, Myocardial Infarction ([place]), Pneumonia Additional Past Medical History / Comment(s): X3 [place]'S, ULCER YEARS AGO, bradycardia Last Myocardial Infarction Date:: 2004 History of Any Multi-Drug Resistant Organisms: None Reported Past Surgical History: AICD, Cardiac Ablation, Heart Catheterization With Stent, Orthopedic Surgery, Pacemaker Additional Past Surgical History / Comment(s): CARDIOVERSION, HEART STENTS X7, cardiac ablation x 2 in the past and again om 12-05-15, rt wrist surgery after injury Past Anesthesia/Blood Transfusion Reactions: No Reported Reaction Additional Past Anesthesia/Blood Transfusion Reaction / Comment(s): NEVER HAS HAD GENERAL ANESTHESIA Date of Last Stent Placement:: 2004 Type of Cardiac Device: AICD Device Placement Date:: 2015 Past Psychological History: No Psychological Hx Reported Smoking Status: Former smoker Past Alcohol Use History: None Reported Past Drug Use History: None Reported - Past Family History Father Additional Family Medical History / Comment(s): DAD HAD PACER BUT NO OTHER HX KNOWN Mother Family Medical History: No Reported History Additional Family Medical History / Comment(s): pt stated does'nt know medical hx on parents. Medications and Allergies Home Medications Medication Instructions Recorded Confirmed Type Atorvastatin [Lipitor] 80 mg PO HS 11/27/13 03/26/20 History Enalapril Maleate 2.5 mg PO HS 11/27/13 03/26/20 History Rivaroxaban [Xarelto] 20 mg PO W/SUPPER #30 tab 12/14/19 03/26/20 Rx Amiodarone [Cordarone] 200 mg PO DAILY 02/09/20 03/26/20 History Furosemide [Lasix] 20 mg PO DAILY 02/09/20 03/26/20 History Omeprazole [PriLOSEC] 40 mg PO DAILY 02/09/20 03/26/20 History Spironolactone [Aldactone] 50 mg PO DAILY 02/09/20 03/26/20 History Metoprolol Succinate (ER) [Toprol 25 mg PO DAILY 03/11/20 03/26/20 History XL] Aspirin 81 mg PO DAILY #30 chew 03/14/20 03/26/20 Rx Allergies Allergy/AdvReac Type Severity Reaction Status Date / Time No Known Allergies Allergy Verified 03/26/20 14:55 Physical Exam Vitals: Vital Signs Temp Pulse Pulse Pulse Resp BP BP 03/27/20 14:00 80 18 03/27/20 12:00 80 18 100/67 03/27/20 08:00 97.6 F 74 78 18 90/41 03/27/20 04:00 96.0 F L 72 18 82/51 03/27/20 00:00 96.4 F L 66 18 83/49 03/26/20 20:00 97.4 F L 86 20 84/57 03/26/20 17:41 97.4 F L 118 H 18 102/68 03/26/20 17:35 85 94/65 03/26/20 17:30 118 H 18 03/26/20 17:25 95.9 F L 103 H 87/50 03/26/20 17:00 95.9 F L 100 18 113/77 03/26/20 16:00 97.9 F 101 H 19 103/62 03/26/20 15:36 97.5 F L Pulse Ox 03/27/20 14:00 03/27/20 12:00 98 03/27/20 08:00 98 03/27/20 04:00 95 03/27/20 00:00 94 L 03/26/20 20:00 94 L 03/26/20 17:41 98 03/26/20 17:35 03/26/20 17:30 03/26/20 17:25 03/26/20 17:00 98 03/26/20 16:00 03/26/20 15:36 Intake and Output 03/27/20 03/27/20 03/27/20 06:59 14:59 22:59 Intake Total 100 0 Balance 100 0 Intake: Intake, IV Titration 100 Amount Piperacillin-Tazobactam 3 100 .375 gm In Sodium Chloride 0.9% 100 ml @ 200 mls/hr IVPB Q8HR [id number] Rx#:[id number] Oral 0 Other: Weight 78 kg 78 kg No acute distress Lying comfortable in bed S1-S2 heard Diminished breath sounds Abdomen tight and guarding with tenderness No edema Results - Lab Results Most recent lab results ABG pH 7.22 (7.35-7.45) L 03/26/20 15:12 ABG pCO2 30 mmHg (35-45) L 03/26/20 15:12 ABG pO2 123 mmHg (83-108) H 03/26/20 15:12 ABG HCO3 12 mmol/L (21-25) L 03/26/20 15:12 ABG O2 Saturation 97.7 % (94-97) H 03/26/20 15:12 Calcium 8.1 mg/dL (8.4-10.2) L 03/27/20 06:10 03/27/20 06:10 03/27/20 06:10 Assessment and Plan Assessment: #1 acute kidney injury suspect ischemic and toxic ATN [ischemic from hypotension and lactic acidosis, toxic from contrast] #2 hyperkalemia secondary to acute kidney injury/acidosis/enalapril and Aldactone #3 abdominal pain with lactic acidosis with concern for ischemic bowel #4 metabolic acidosis with respiratory alkalosis secondary to lactic acidosis #5 hypotension Plan: #1 aggressive hydration with 2.5 L so far. Continue with bicarb drip at 75 ML's an hour. #2 bladder scan to 100 ML's. Continue to monitor strict ins and outs. #3 appreciate surgical input. #4 medical management for hyperkalemia #5 if renal function continues to worsen and hyperkalemia persist might need dialysis. #6 thank you very much for this consultation
[2020-03-27] MEDS ORDERED: INSULIN REGULAR 100 UNIT/ML VIAL IV ONE (15:09)
[2020-03-27] MEDS ORDERED: SODIUM POLYSTYRENE SULFONATE 15 GM/60 ML BOTTLE PO STA (15:10)
[2020-03-27] MEDS ORDERED: DEXTROSE 50% SYRINGE 50 ML IVP STA (15:10)
[2020-03-27 15:11] LABS: Glucose,Whole Blood 96 mg/dL (75-99)
[2020-03-27] MEDS: MIDODRINE 5 MG TAB PO SCH (16:30)
[2020-03-27] MEDS: DEXTROSE 5% IN WATER 1,000 ML with SODIUM BICARB (1 MEQ/ML) 150 ML IV SCH (16:47)
[2020-03-27] MEDS: DOBUTamine DRIP 500 MG in DEXTROSE/WATER 1 250ML.BAG IV SCH (16:49)
--- NOTE | 2020-03-27 22:02 | P.HPIM ---
History of Present Illness H&P Date: 03/27/20 Chief Complaint: Abdominal pain History of presenting complaint: This is a pleasant 69-year-old patient of Dr. Cheatham. Chronic stable medical conditions include coronary artery disease, hyperlipidemia, multiple MIs in the past, coronary stent, peptic ulcer disease, ischemic cardiomyopathy, previous V. tach ablation, atrial fibrillation,. 2 weeks ago patient was admitted with CHF exacerbation. Cardiac catheterization [March 14] showed chronically occluded RCA with extensive [id number] collaterals. Also some focal obstructive lesion in the circumflex. Creatinine then was 1.16. Patient now presents with having nausea vomiting "a few days. Also having diffuse abdominal pain. Appetite is rather poor. Has not had a bowel movement for 5 days. Shortness of breath. Denies any fever and chills. Occasional cough. Some edema. Has orthopnea. Review of systems: GEN.: Tired, poor appetite EYES: None HEENT: None NECK: None RESPIRATORY: shortness of breath CARDIOVASCULAR: As above GASTROINTESTINAL: As above GENITOURINARY: None MUSCULOSKELETAL: None LYMPHATICS: None HEMATOLOGICAL: None PSYCHIATRY: None NEUROLOGICAL: None Past medical history to include: Coronary artery disease with stent, multiple MIs, hyperlipidemia, peptic ulcer disease, CHF EF 35-40%, ventricular tachycardia ablation, AICD placement, chronic atrial fibrillation, Social history: Lives alone. Smoking a pack a day closed to 59 years, takes about 6 pack a week. 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 Conjunctiva normal. HEENT: External appearance of nose and ears normal, oral cavity grossly normal. NECK: JVD possibly raised; masses not palpable. HEART: First and second heart sounds are normal; edema present. LUNGS: Respiratory rate increased, decreased breath sounds. ABDOMEN: Soft, diffuse tenderness, no guarding rigidity, liver spleen not palpable, no masses palpable. PSYCH: Alert and oriented x3; mood and affect tired appearing NEUROLOGICAL: Cranial nerves grossly intact; no facial asymmetry, power and sensation grossly intact. LYMPHATICS: No lymph nodes palpable in the axilla and neck INVESTIGATIONS, reviewed in the clinical context: White count 29.2 hemoglobin 12.2 platelets 327 ProTime greater than 10 Potassium 6 bicarbonate 17 bun 29 creatinine 2.58 total bilirubin 3.8 AST 7392 ALT 1842 Admission testing: White count 25.4 hemoglobin 13.6 platelets 384 Sodium 135 potassium 5.7 creatinine 1.61 lactic 10.4 total bilirubin 3.2 AST 1472 ALT 537 Coronavirus-P/Cr-not detected Computed tomography scan of the abdomen pelvis-moderate size bilateral pleural effusion and compression atelectasis, [facility] of the colon the right colon contracted gallbladder Ultrasound-contracted gallbladder EKG tracing personally reviewed by me-atrial fibrillation rate of 91 Chest x-ray film-pleural effusion atelectasis Previous testing: Hemoglobin 11.6 on March 14 Creatinine 1.16 on March 14 Assessment: -Suspect underlying ischemic colitis given that the patient has got significant vascular disease, infective component cannot be ruled out -Acute ischemic hepatitis, worsening from CHF and hypotension -Abnormal coagulation profile with a combination of patient poor oral intake and also being on an xarelto and also vitamin K deficiency there off -AICD -Coronary artery disease with prior history of stents -Acute on chronic congestive heart failure exacerbation from systolic dysfu nction EF 30-35%- -Acute hypoxic respiratory failure from pulmonary edema -Moderate tricuspid regurgitation -Hyperlipidemia -Persistent atrial fibrillation/flutter-rate controlled -Chronic nicotine dependence patient active cigarette smoker -Acute kidney injury likely ATN from cardiorenal syndrome, the possible contribution from contrast-induced nephropathy from cardiac catheterization and IV contrast with computed tomography scan -Bilateral pleural effusion from CHF with a prior history of thoracentesis -Metabolic acidosis multifactorial -Hyperkalemia from renal failure Plan: Patient was started on IV Zosyn. IV fluids. IV bicarbonate for acidosis. Patient be kept nothing by mouth except for ice chips. Vitamin K given. 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 Xarelto has been held off.. Oral diuretics have been held off for now. Cordarone has been held off in view of liver failure. And Lipitor also. Care was discussed with the patient. Also with Dr. Younger in the morning. Patient was removed to ICU for closer monitoring hemodynamically. Past Medical History Past Medical History: Atrial Fibrillation, Coronary Artery Disease (CAD), Hyperlipidemia, Hypertension, Myocardial Infarction (AL), Pneumonia Additional Past Medical History / Comment(s): X3 AL'S, ULCER YEARS AGO, bradycardia Last Myocardial Infarction Date:: 2004 History of Any Multi-Drug Resistant Organisms: None Reported Past Surgical History: AICD, Cardiac Ablation, Heart Catheterization With Stent, Orthopedic Surgery, Pacemaker Additional Past Surgical History / Comment(s): CARDIOVERSION, HEART STENTS X7, cardiac ablation x 2 in the past and again om 12-05-15, rt wrist surgery after injury Past Anesthesia/Blood Transfusion Reactions: No Reported Reaction Additional Past Anesthesia/Blood Transfusion Reaction / Comment(s): NEVER HAS HAD GENERAL ANESTHESIA Date of Last Stent Placement:: 2004 Type of Cardiac Device: AICD Device Placement Date:: 2015 Past Psychological History: No Psychological Hx Reported Smoking Status: Former smoker Past Alcohol Use History: None Reported Past Drug Use History: None Reported - Past Family History Father Additional Family Medical History / Comment(s): DAD HAD PACER BUT NO OTHER HX KNOWN Mother Family Medical History: No Reported History Additional Family Medical History / Comment(s): pt stated does'nt know medical hx on parents. Medications and Allergies Home Medications Medication Instructions Recorded Confirmed Type Atorvastatin [Lipitor] 80 mg PO HS 11/27/13 03/26/20 History Enalapril Maleate 2.5 mg PO HS 11/27/13 03/26/20 History Rivaroxaban [Xarelto] 20 mg PO W/SUPPER #30 tab 12/14/19 03/26/20 Rx Amiodarone [Cordarone] 200 mg PO DAILY 02/09/20 03/26/20 History Furosemide [Lasix] 20 mg PO DAILY 02/09/20 03/26/20 History Omeprazole [PriLOSEC] 40 mg PO DAILY 02/09/20 03/26/20 History Spironolactone [Aldactone] 50 mg PO DAILY 02/09/20 03/26/20 History Metoprolol Succinate (ER) [Toprol 25 mg PO DAILY 03/11/20 03/26/20 History XL] Aspirin 81 mg PO DAILY #30 chew 03/14/20 03/26/20 Rx Allergies Allergy/AdvReac Type Severity Reaction Status Date / Time No Known Allergies Allergy Verified 03/26/20 14:55 Physical Exam Vitals: Vital Signs Temp Pulse Pulse Resp BP BP Pulse Ox 03/27/20 04:00 96.0 F L 72 18 82/51 95 03/27/20 00:00 96.4 F L 66 18 83/49 94 L 03/26/20 20:00 97.4 F L 86 20 84/57 94 L 03/26/20 17:41 97.4 F L 118 H 18 102/68 98 03/26/20 17:35 85 94/65 03/26/20 17:30 118 H 18 03/26/20 17:25 95.9 F L 103 H 87/50 03/26/20 17:00 95.9 F L 100 18 113/77 98 03/26/20 16:00 97.9 F 101 H 19 103/62 03/26/20 15:36 97.5 F L 03/26/20 15:00 95 16 112/65 84 L 03/26/20 14:30 105 H 20 90/65 91 L 03/26/20 13:30 96 22 96/66 03/26/20 13:00 97.1 F L 84 20 94/81 03/26/20 12:00 84 18 108/79 93 L 03/26/20 11:30 98 18 116/83 92 L 03/26/20 11:26 91 12 94 L Intake and Output 03/26/20 03/27/20 03/27/20 22:59 06:59 14:59 Intake Total 100 0 Balance 100 0 Intake: Intake, IV Titration 100 Amount Piperacillin-Tazobactam 3 100 .375 gm In Sodium Chloride 0.9% 100 ml @ 200 mls/hr IVPB Q8HR [facility] Rx#:[id number] Oral 0 Other: Weight 69.853 kg 78 kg Results CBC & Chem 7: 03/27/20 06:10 03/27/20 18:59 Labs: Abnormal Lab Results - Last 24 Hours (Table) 03/26/20 03/26/20 03/26/20 Range/Units 11:46 11:46 11:46 WBC 25.4 H (3.8-10.6) k/uL Hgb (13.0-17.5) gm/dL MCHC (31.0-37.0) g/dL RDW 17.3 H (11.5-15.5) % Neutrophils # 20.8 H (1.3-7.7) k/uL Neutrophils # (Manual) (1.3-7.7) k/uL Lymphocytes # (Manual) (1.0-4.8) k/uL Monocytes # 2.6 H (0-1.0) k/uL Monocytes # (Manual) (0-1.0) k/uL Myelocytes # (Manual) (0) k/uL PT (9.0-12.0) sec INR (<1.2) APTT (22.0-30.0) sec ABG pH (7.35-7.45) ABG pCO2 (35-45) mmHg ABG pO2 (83-108) mmHg ABG HCO3 (21-25) mmol/L ABG Total CO2 (19-24) mmol/L ABG O2 Saturation (94-97) % Sodium 135 L (137-145) mmol/L Potassium 5.7 H (3.5-5.1) mmol/L Chloride 97 L (98-107) mmol/L Carbon Dioxide 18 L (22-30) mmol/L BUN (9-20) mg/dL Creatinine 1.61 H (0.66-1.25) mg/dL Plasma Lactic Acid Geoff 10.4 H* (0.7-2.0) mmol/L Calcium (8.4-10.2) mg/dL Total Bilirubin 3.4 H (0.2-1.3) mg/dL Conjugated Bilirubin (0.0-0.3) mg/dL Unconjugated Bilirubin (0.0-1.1) mg/dL Delta Bilirubin (0.0-0.2) mg/dL AST 1441 H (17-59) U/L ALT 534 H (4-49) U/L Alkaline Phosphatase 188 H (38-126) U/L Albumin (3.5-5.0) g/dL Urine Protein (Negative) Hyaline Casts (0-2) /lpf Urine Mucus (None) /hpf 03/26/20 03/26/20 03/26/20 Range/Units 11:46 13:10 14:29 WBC (3.8-10.6) k/uL Hgb (13.0-17.5) gm/dL MCHC (31.0-37.0) g/dL RDW (11.5-15.5) % Neutrophils # (1.3-7.7) k/uL Neutrophils # (Manual) (1.3-7.7) k/uL Lymphocytes # (Manual) (1.0-4.8) k/uL Monocytes # (0-1.0) k/uL Monocytes # (Manual) (0-1.0) k/uL Myelocytes # (Manual) (0) k/uL PT (9.0-12.0) sec INR (<1.2) APTT (22.0-30.0) sec ABG pH (7.35-7.45) ABG pCO2 (35-45) mmHg ABG pO2 (83-108) mmHg ABG HCO3 (21-25) mmol/L ABG Total CO2 (19-24) mmol/L ABG O2 Saturation (94-97) % Sodium (137-145) mmol/L Potassium (3.5-5.1) mmol/L Chloride (98-107) mmol/L Carbon Dioxide (22-30) mmol/L BUN (9-20) mg/dL Creatinine (0.66-1.25) mg/dL Plasma Lactic Acid Geoff 11.2 H* (0.7-2.0) mmol/L Calcium (8.4-10.2) mg/dL Total Bilirubin 3.2 H (0.2-1.3) mg/dL Conjugated Bilirubin 0.4 H (0.0-0.3) mg/dL Unconjugated Bilirubin 1.6 H (0.0-1.1) mg/dL Delta Bilirubin 1.2 H (0.0-0.2) mg/dL AST 1472 H (17-59) U/L ALT 537 H (4-49) U/L Alkaline Phosphatase 192 H (38-126) U/L Albumin (3.5-5.0) g/dL Urine Protein 1+ H (Negative) Hyaline Casts 43 H (0-2) /lpf Urine Mucus Few H (None) /hpf 03/26/20 03/26/20 03/26/20 Range/Units 15:12 15:59 18:07 WBC (3.8-10.6) k/uL Hgb (13.0-17.5) gm/dL MCHC (31.0-37.0) g/dL RDW (11.5-15.5) % Neutrophils # (1.3-7.7) k/uL Neutrophils # (Manual) (1.3-7.7) k/uL Lymphocytes # (Manual) (1.0-4.8) k/uL Monocytes # (0-1.0) k/uL Monocytes # (Manual) (0-1.0) k/uL Myelocytes # (Manual) (0) k/uL PT 85.8 H (9.0-12.0) sec INR 8.8 H* (<1.2) APTT 38.8 H (22.0-30.0) sec ABG pH 7.22 L (7.35-7.45) ABG pCO2 30 L (35-45) mmHg ABG pO2 123 H (83-108) mmHg ABG HCO3 12 L (21-25) mmol/L ABG Total CO2 13 L (19-24) mmol/L ABG O2 Saturation 97.7 H (94-97) % Sodium (137-145) mmol/L Potassium (3.5-5.1) mmol/L Chloride (98-107) mmol/L Carbon Dioxide (22-30) mmol/L BUN (9-20) mg/dL Creatinine (0.66-1.25) mg/dL Plasma Lactic Acid Geoff 12.6 H* (0.7-2.0) mmol/L Calcium (8.4-10.2) mg/dL Total Bilirubin (0.2-1.3) mg/dL Conjugated Bilirubin (0.0-0.3) mg/dL Unconjugated Bilirubin (0.0-1.1) mg/dL Delta Bilirubin (0.0-0.2) mg/dL AST (17-59) U/L ALT (4-49) U/L Alkaline Phosphatase (38-126) U/L Albumin (3.5-5.0) g/dL Urine Protein (Negative) Hyaline Casts (0-2) /lpf Urine Mucus (None) /hpf 03/27/20 03/27/20 03/27/20 Range/Units 06:10 06:10 06:10 WBC 29.2 H (3.8-10.6) k/uL Hgb 12.2 L (13.0-17.5) gm/dL MCHC 30.4 L (31.0-37.0) g/dL RDW 17.2 H (11.5-15.5) % Neutrophils # (1.3-7.7) k/uL Neutrophils # (Manual) 26.20 H (1.3-7.7) k/uL Lymphocytes # (Manual) 0.88 L (1.0-4.8) k/uL Monocytes # (0-1.0) k/uL Monocytes # (Manual) 2.04 H (0-1.0) k/uL Myelocytes # (Manual) 0.29 H (0) k/uL PT (9.0-12.0) sec INR (<1.2) APTT (22.0-30.0) sec ABG pH (7.35-7.45) ABG pCO2 (35-45) mmHg ABG pO2 (83-108) mmHg ABG HCO3 (21-25) mmol/L ABG Total CO2 (19-24) mmol/L ABG O2 Saturation (94-97) % Sodium 134 L (137-145) mmol/L Potassium 6.0 H (3.5-5.1) mmol/L Chloride (98-107) mmol/L Carbon Dioxide 17 L (22-30) mmol/L BUN 29 H (9-20) mg/dL Creatinine 2.58 H (0.66-1.25) mg/dL Plasma Lactic Acid Geoff (0.7-2.0) mmol/L Calcium 8.1 L (8.4-10.2) mg/dL Total Bilirubin 3.8 H (0.2-1.3) mg/dL Conjugated Bilirubin 1.4 H (0.0-0.3) mg/dL Unconjugated Bilirubin (0.0-1.1) mg/dL Delta Bilirubin 1.3 H (0.0-0.2) mg/dL AST 7392 H (17-59) U/L ALT 1842 H (4-49) U/L Alkaline Phosphatase 166 H (38-126) U/L Albumin 3.3 L (3.5-5.0) g/dL Urine Protein (Negative) Hyaline Casts (0-2) /lpf Urine Mucus (None) /hpf 03/27/20 Range/Units 08:53 WBC (3.8-10.6) k/uL Hgb (13.0-17.5) gm/dL MCHC (31.0-37.0) g/dL RDW (11.5-15.5) % Neutrophils # (1.3-7.7) k/uL Neutrophils # (Manual) (1.3-7.7) k/uL Lymphocytes # (Manual) (1.0-4.8) k/uL Monocytes # (0-1.0) k/uL Monocytes # (Manual) (0-1.0) k/uL Myelocytes # (Manual) (0) k/uL PT 117.7 H (9.0-12.0) sec INR >10.0 H* (<1.2) APTT (22.0-30.0) sec ABG pH (7.35-7.45) ABG pCO2 (35-45) mmHg ABG pO2 (83-108) mmHg ABG HCO3 (21-25) mmol/L ABG Total CO2 (19-24) mmol/L ABG O2 Saturation (94-97) % Sodium (137-145) mmol/L Potassium (3.5-5.1) mmol/L Chloride (98-107) mmol/L Carbon Dioxide (22-30) mmol/L BUN (9-20) mg/dL Creatinine (0.66-1.25) mg/dL Plasma Lactic Acid Geoff (0.7-2.0) mmol/L Calcium (8.4-10.2) mg/dL Total Bilirubin (0.2-1.3) mg/dL Conjugated Bilirubin (0.0-0.3) mg/dL Unconjugated Bilirubin (0.0-1.1) mg/dL Delta Bilirubin (0.0-0.2) mg/dL AST (17-59) U/L ALT (4-49) U/L Alkaline Phosphatase (38-126) U/L Albumin (3.5-5.0) g/dL Urine Protein (Negative) Hyaline Casts (0-2) /lpf Urine Mucus (None) /hpf Thrombosis Risk Factor Assmnt - Choose All That Apply Any of the Below Risk Factors Present?: No Each Risk Factor Represents 2 Points: Age 61-74 years Other congenital or acquired thrombophilia - If yes, enter type in comment: No Thrombosis Risk Factor Assessment Total Risk Factor Score: 2 Thrombosis Risk Factor Assessment Level: Low Risk
[2020-03-27 23:44] LABS: Glucose,Whole Blood 163 mg/dL (75-99)
[2020-03-28] MEDS: ONDANSETRON 4 MG/2 ML VIAL IVP PRN ×2 (02:24→11:29)
[2020-03-28 04:59] LABS: Partial Thromboplastin Time 55.2 sec (22.0-30.0); Prothrombin Time 89.3 sec (9.0-12.0)
[2020-03-28 05:02] LABS: INR 9.1 (<1.2)
[2020-03-28 05:25] LABS: Albumin 2.7 g/dL (3.5-5.0); Potassium 5.1 mmol/L (3.5-5.1); Total Bilirubin 3.6 mg/dL (0.2-1.3); Total Protein 5.5 g/dL (6.3-8.2)
[2020-03-28 06:12] LABS: Calcium 6.3 mg/dL (8.4-10.2)
[2020-03-28 06:43] LABS: Anisocytosis Slight; HCT 34.2 % (39.0-53.0); HGB 10.7 gm/dL (13.0-17.5); Hypochromasia Moderate; MCH 26.6 pg (25.0-35.0); MCHC 31.2 g/dL (31.0-37.0); MCV 85.3 fL (80.0-100.0); Mean Platelet Volume 9.7; Platelet Count 254 k/uL (150-450); Poikilocytosis Slight; RDW 17.7 % (11.5-15.5); WBC 19.7 k/uL (3.8-10.6)
[2020-03-28 07:09] LABS: Band Neutrophils % 5 %; Lymphocytes # (M) 1.77 k/uL (1.0-4.8); Monocytes # (M) 1.38 k/uL (0-1.0); Neutrophils % (M) 79 %; Nucleated Red Blood Cells 0 /100 WBC (0-0); Total Cells Counted 100
[2020-03-28 07:13] LABS: Glucose,Whole Blood 150 mg/dL (75-99)
[2020-03-28 07:13] LABS: Anisocytosis (M) Present; Poikilocytosis (M) Present
[2020-03-28] MEDS: IPRATROPIUM-ALBUTEROL 3 ML NEB INHALATION SCH ×4 (07:24→20:22)
--- NOTE | 2020-03-28 08:18 | XR ---
EXAMINATION TYPE: XR chest 1V portable DATE OF EXAM: 03/28/2020 COMPARISON: Chest x-ray 03/26/2020 HISTORY: Decreased respiratory effort, abnormal chest x-ray TECHNIQUE: Single frontal view of the chest is obtained. FINDINGS: Apical pleural thickening on the right greater than left is again noted. Generators presen t in the left pectoral region, there is a intracardiac defibrillator lead as well as additional defib rillator in the left axilla with lead overlying the left lower chest. No evident pneumothorax. Hemidi aphragms are obscured as on prior exam, there is blunting of the costophrenic angle on the left. Hear t is stable. Pulmonary vascularity and ro not significantly changed. IMPRESSION: Possible basilar atelectasis versus pneumonia, edema and associated effusions.
[2020-03-28] MEDS: DEXTROSE 5% IN WATER 1,000 ML with SODIUM BICARB (1 MEQ/ML) 150 ML IV SCH (08:21)
[2020-03-28] MEDS: MIDODRINE 5 MG TAB PO SCH ×3 (08:55→16:57)
[2020-03-28] MEDS: PANTOPRAZOLE 40 MG TABLET PO SCH ×3 (08:56→20:01)
--- NOTE | 2020-03-28 08:59 | P.PN ---
Subjective Progress Note Date: 03/28/20 Patient seen and examined at bedside. He was transferred to ICU yesterday. States he has not had any bowel movements. He has been coughing phlegm. Complains of continued abdominal soreness, no worse than admission. Objective - Vital Signs Vital signs: Vital Signs Temp 95.9 F L 03/28/20 07:00 Pulse 72 03/28/20 07:40 Resp 10 L 03/28/20 07:30 BP 100/57 03/28/20 07:30 Pulse Ox 87 L 03/28/20 07:30 Intake & Output 03/27/20 03/28/20 03/28/20 18:59 06:59 18:59 Intake Total 225 1461.90 201.7 Output Total 45 190 60 Balance 180 1271.90 141.7 Weight 78 kg 72.7 kg Intake: IV 225 1401.90 201.7 0.9 NaCl- 220 40 DOBUTamine DRIP 500 mg In 81.90 11.7 Dextrose/Water 1 250ml. bag @ 5 MCG/KG/MIN 11.7 mls/hr IV .[id number] [facility] Rx #:[id number] Dextrose 5% in Water 1, 225 900 150 000 ml @ 75 mls/hr IV . [id number] [facility] with Sodium Bicarb (1 Meq/ml) 150 ml Rx#:[id number] Zosyn 200 Oral 0 60 Output: Urine 45 90 60 Emesis 100 Other: Voiding Method Indwelling Catheter - Constitutional General appearance: Present: cooperative, no acute distress - Gastrointestinal Gastrointestinal Comment(s): Soft, mildly distended, no rebound, no guarding, mild tenderness to palpation in the epigastrium - Musculoskeletal Musculoskeletal: Present: generalized weakness - Psychiatric Psychiatric: Present: A&O x's 3 - Labs CBC & Chem 7: 03/28/20 04:05 03/28/20 04:05 Labs: Abnormal Lab Results - Last 24 Hours (Table) 03/27/20 03/27/20 03/27/20 Range/Units 06:10 06:10 08:53 WBC 29.2 H (3.8-10.6) k/uL RBC (4.30-5.90) m/uL Hgb 12.2 L (13.0-17.5) gm/dL Hct (39.0-53.0) % MCHC 30.4 L (31.0-37.0) g/dL RDW 17.2 H (11.5-15.5) % Neutrophils # (Manual) 26.20 H (1.3-7.7) k/uL Lymphocytes # (Manual) 0.88 L (1.0-4.8) k/uL Monocytes # (Manual) 2.04 H (0-1.0) k/uL Myelocytes # (Manual) 0.29 H (0) k/uL PT 117.7 H (9.0-12.0) sec INR >10.0 H* (<1.2) APTT (22.0-30.0) sec Sodium (137-145) mmol/L Potassium (3.5-5.1) mmol/L Chloride (98-107) mmol/L BUN (9-20) mg/dL Creatinine (0.66-1.25) mg/dL Glucose (74-99) mg/dL POC Glucose (mg/dL) (75-99) mg/dL Calcium (8.4-10.2) mg/dL Total Bilirubin 3.8 H (0.2-1.3) mg/dL Conjugated Bilirubin 1.4 H (0.0-0.3) mg/dL Delta Bilirubin 1.3 H (0.0-0.2) mg/dL AST 7392 H (17-59) U/L ALT 1842 H (4-49) U/L Alkaline Phosphatase 166 H (38-126) U/L Total Protein (6.3-8.2) g/dL Albumin 3.3 L (3.5-5.0) g/dL 03/27/20 03/27/20 03/27/20 Range/Units 18:59 20:57 23:41 WBC (3.8-10.6) k/uL RBC (4.30-5.90) m/uL Hgb (13.0-17.5) gm/dL Hct (39.0-53.0) % MCHC (31.0-37.0) g/dL RDW (11.5-15.5) % Neutrophils # (Manual) (1.3-7.7) k/uL Lymphocytes # (Manual) (1.0-4.8) k/uL Monocytes # (Manual) (0-1.0) k/uL Myelocytes # (Manual) (0) k/uL PT (9.0-12.0) sec INR (<1.2) APTT (22.0-30.0) sec Sodium (137-145) mmol/L Potassium 5.7 H 5.6 H (3.5-5.1) mmol/L Chloride (98-107) mmol/L BUN (9-20) mg/dL Creatinine (0.66-1.25) mg/dL Glucose (74-99) mg/dL POC Glucose (mg/dL) 163 H (75-99) mg/dL Calcium (8.4-10.2) mg/dL Total Bilirubin (0.2-1.3) mg/dL Conjugated Bilirubin (0.0-0.3) mg/dL Delta Bilirubin (0.0-0.2) mg/dL AST (17-59) U/L ALT (4-49) U/L Alkaline Phosphatase (38-126) U/L Total Protein (6.3-8.2) g/dL Albumin (3.5-5.0) g/dL 03/28/20 03/28/20 03/28/20 Range/Units 04:05 04:05 04:05 WBC 19.7 H (3.8-10.6) k/uL RBC 4.00 L (4.30-5.90) m/uL Hgb 10.7 L (13.0-17.5) gm/dL Hct 34.2 L (39.0-53.0) % MCHC (31.0-37.0) g/dL RDW 17.7 H (11.5-15.5) % Neutrophils # (Manual) 16.50 H (1.3-7.7) k/uL Lymphocytes # (Manual) (1.0-4.8) k/uL Monocytes # (Manual) 1.38 H (0-1.0) k/uL Myelocytes # (Manual) (0) k/uL PT 89.3 H (9.0-12.0) sec INR 9.1 H* (<1.2) APTT 55.2 H (22.0-30.0) sec Sodium 131 L (137-145) mmol/L Potassium (3.5-5.1) mmol/L Chloride 96 L (98-107) mmol/L BUN 47 H (9-20) mg/dL Creatinine 3.37 H (0.66-1.25) mg/dL Glucose 149 H (74-99) mg/dL POC Glucose (mg/dL) (75-99) mg/dL Calcium 6.3 L* (8.4-10.2) mg/dL Total Bilirubin 3.6 H (0.2-1.3) mg/dL Conjugated Bilirubin (0.0-0.3) mg/dL Delta Bilirubin (0.0-0.2) mg/dL AST 5707 H (17-59) U/L ALT 1695 H (4-49) U/L Alkaline Phosphatase 154 H (38-126) U/L Total Protein 5.5 L (6.3-8.2) g/dL Albumin 2.7 L (3.5-5.0) g/dL 03/28/20 Range/Units 07:12 WBC (3.8-10.6) k/uL RBC (4.30-5.90) m/uL Hgb (13.0-17.5) gm/dL Hct (39.0-53.0) % MCHC (31.0-37.0) g/dL RDW (11.5-15.5) % Neutrophils # (Manual) (1.3-7.7) k/uL Lymphocytes # (Manual) (1.0-4.8) k/uL Monocytes # (Manual) (0-1.0) k/uL Myelocytes # (Manual) (0) k/uL PT (9.0-12.0) sec INR (<1.2) APTT (22.0-30.0) sec Sodium (137-145) mmol/L Potassium (3.5-5.1) mmol/L Chloride (98-107) mmol/L BUN (9-20) mg/dL Creatinine (0.66-1.25) mg/dL Glucose (74-99) mg/dL POC Glucose (mg/dL) 150 H (75-99) mg/dL Calcium (8.4-10.2) mg/dL Total Bilirubin (0.2-1.3) mg/dL Conjugated Bilirubin (0.0-0.3) mg/dL Delta Bilirubin (0.0-0.2) mg/dL AST (17-59) U/L ALT (4-49) U/L Alkaline Phosphatase (38-126) U/L Total Protein (6.3-8.2) g/dL Albumin (3.5-5.0) g/dL Microbiology - Last 24 Hours (Table) 03/26/20 13:01 Blood Culture - Preliminary Blood No Growth after 24 hours Assessment and Plan Plan: Since transfer to the intensive care unit, patient's leukocytosis has improved. Transaminitis is still extremely elevated, however somewhat improved from yesterday. Case was discussed today with cardiology. This continues to appear as a global hypoperfusion picture. He is being evaluated by cardiology, nephrology, gastroenterology and intensive care along with internal medicine. His INR continues to remain elevated greater than 9. After discussion with cardiology, with any possibility of chronic mesenteric ischemia, with improvement of creatinine, patient could undergo endovascular evaluation of the mesentery. He continues to be a poor surgical candidate based on high risk of bleeding with elevated INR and cardiac risk. We'll continue to follow and provide recommendations based on patient's progress.
[2020-03-28] MEDS ORDERED: PHYTONADIONE 10 MG in SODIUM CHLORIDE 0.9% 50 ML IVPB SCH (09:00)
--- NOTE | 2020-03-28 09:48 | P.PN ---
Subjective HISTORY OF PRESENTING ILLNESS Patient is a pleasant 70-year-old male with history of CAD with multiple stents in the past, ischemic cardiomyopathy, atrial fibrillation on Xarelto, subcutaneous AICD, ventricular tachycardia with ICD discharge in November on amiodarone, multiple ablations in the past who normally follows with Dr. Curry. Patient did have an AICD discharge in November admits he has not felt well since that time. Mainly he has been having nausea, vomiting, problems with eating more substantial foods with abdominal pain when he does eat these and approximate 20-30 pound weight loss. Patient did present in February where he h ad catheterization performed with CT of the RCA with [id number] collaterals and mild to moderate disease of the circumflex and no significant stenosis of the LAD. Patient presented mainly with continued nausea, vomiting and abdominal pain and was found to have increased lactic acidosis, leukocytosis, acute kidney injury and hypotension. He did have a CTA performed of the abdomen and pelvis which showed a small amount of ascites, wall thickening of the colon and mention of the SMA and celiac axis the diminutive size with extensive vascular disease. He additionally had coagulopathy with INR of 9, shock liver with AST and ALTs in the thousands. His amiodarone was stopped. 03/28/20 Patient seen and examined. Patient continues to have no appetite, nausea. He denies any chest pain or pressure. He was placed on dobutamine initially 2.5 and increased to 5. His blood pressures have been borderline with systolics 80s to 90s and he was taken off of all antihypertensives. His creatinine continues to increase, 3.37 today. Troponin was drawn for completeness and resulted at 0.086. Sodium has been decreasing, down to 131 today. Patient has limited urine output, 10-20 mL per hour per nursing. REVIEW OF SYSTEMS At the time of my exam: CONSTITUTIONAL: Denies fever or chills. CARDIOVASCULAR: Denies chest pain, shortness of breath, or palpitations. RESPIRATORY: Denies cough. GASTROINTESTINAL: + abdominal pain, no diarrhea, constipation, nausea or vomiting. MUSCULOSKELETAL: Denies myalgias. NEUROLOGIC: Denies numbness, tingling or weakness. ENDOCRINE: + fatigue, +weight loss. GENITOURINARY: Denies burning, hematuria or urgency with micturation. HEMATOLOGIC: Denies history of anemia or bleeding. PHYSICAL EXAMINATION Blood pressure 90/50 heart rate 75 afebrile and maintaining oxygen saturation on 4 L nasal cannula. CONSTITUTIONAL: No apparent distress, chronically ill-appearing, thin. HEENT: Head is normocephalic. Pupils are equal, round. Sclerae anicteric. Mucous membranes of the mouth are moist. No JVD. No carotid bruit. CHEST EXAMINATION: Lungs are clear to auscultation. + Mild crackles at bases HEART EXAMINATION: Regular rate and rhythm. S1, S2 heard. +2/6 systolic murmur, +JVD. ABDOMEN: Soft, +mildly tender. No bruit noted. Positive bowel sounds. EXTREMITIES: 2+ peripheral pulses, +1+ lower extremity edema and no calf tenderness. NEUROLOGIC EXAMINATION: Patient is awake, alert and oriented x3. ASSESSMENT 1. Shock of unclear etiology. Predominantly appears likely septic shock with increased white blood cell count and lactic acidosis however he does have significant cardiomyopathy and may be a component of cardiogenic shock. Currently on dobutamine. Check 2-D echo to further evaluate. 2. Acute liver injury, likely shock liver with coagulopathy. Possible additional component of amiodarone liver injury. Amiodarone discontinued 3. Ischemic cardiomyopathy with most recent echo 03/12/2020 showing ejection fraction 35-40% 4. 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 At least moderate to severe posteriorly directed mitral regurgitation with posterior leaflet tethering. 6. Moderate to severe tricuspid regurgitation 7. History of hypertension, currently off of all antihypertensives 8. Coagulopathy, INR 9.1 9. Acute kidney injury likely related to contrast-induced nephropathy from CTA as well as ATN from hypotension 10. Anemia 11. Elevated troponin, likely type II mechanism from a GI and shock 12. A. fib 13. AICD present 14. History of ventricular tachycardia status post ablation and AICD, previously on amiodarone 15. Persistent nausea, vomiting, abdominal pain since November. May be a component of mesenteric ischemia. PLAN Patient with well predominantly appears to be septic shock however multiple reasons for possible cardiogenic shock. His last echo did show ejection fraction 35-40% however additionally had what appeared to be severe posteriorly directed mitral regurgitation, likely related to posterior leaflet tethering from his inferior hypokinesis, HAND BOX FOLDER of RCA. We will check transthoracic echocardiogram first to reevaluate however patient will likely need a AKILAH and possibly right heart catheterization. Continue to optimize patient medically. If mitral regurgitation is severe, and patient is truly in cardiogenic shock, patient may need mitral clip. Patient currently appears time overloaded with JVD and lower extremity edema and would hold any further IV fluid resuscitation. Patient was placed on dobutamine however if patient is hypotensive would prefer levophed especially with history of ventricular tachycardia requiring previous AICD defibrillations. May additionally consider mesenteric angiography and possible is mesenteric stenting however has acute kidney injury and primary picture appears to be global hypo-perfusion and would attempt to address shock state first. Prognosis guarded. Objective - Vital Signs Vital signs: Vital Signs Temp 95.9 F L 03/28/20 07:00 Pulse 75 03/28/20 09:00 Resp 22 03/28/20 09:00 BP 90/50 03/28/20 09:00 Pulse Ox 95 03/28/20 09:00 Intake & Output 03/27/20 03/28/20 03/28/20 18:59 06:59 18:59 Intake Total 225 1461.90 221.7 Output Total 45 190 78 Balance 180 1271.90 143.7 Weight 78 kg 72.7 kg Intake: IV 225 1401.90 221.7 0.9 NaCl- 220 60 DOBUTamine DRIP 500 mg In 81.90 11.7 Dextrose/Water 1 250ml. bag @ 5 MCG/KG/MIN 11.7 mls/hr IV .[id number] [facility] Rx #:[id number] Dextrose 5% in Water 1, 225 900 150 000 ml @ 75 mls/hr IV . [id number] [facility] with Sodium Bicarb (1 Meq/ml) 150 ml Rx#:[id number] Zosyn 200 Oral 0 60 Output: Urine 45 90 78 Emesis 100 Other: Voiding Method Indwelling Catheter - Labs CBC & Chem 7: 03/28/20 04:05 03/28/20 04:05 Labs: Abnormal Lab Results - Last 24 Hours (Table) 03/27/20 03/27/20 03/27/20 Range/Units 06:10 06:10 08:53 WBC (3.8-10.6) k/uL RBC (4.30-5.90) m/uL Hgb (13.0-17.5) gm/dL Hct (39.0-53.0) % RDW (11.5-15.5) % Neutrophils # (Manual) 26.20 H (1.3-7.7) k/uL Lymphocytes # (Manual) 0.88 L (1.0-4.8) k/uL Monocytes # (Manual) 2.04 H (0-1.0) k/uL Myelocytes # (Manual) 0.29 H (0) k/uL PT 117.7 H (9.0-12.0) sec INR >10.0 H* (<1.2) APTT (22.0-30.0) sec Sodium (137-145) mmol/L Potassium (3.5-5.1) mmol/L Chloride (98-107) mmol/L BUN (9-20) mg/dL Creatinine (0.66-1.25) mg/dL Glucose (74-99) mg/dL POC Glucose (mg/dL) (75-99) mg/dL Calcium (8.4-10.2) mg/dL Total Bilirubin (0.2-1.3) mg/dL AST 7392 H (17-59) U/L ALT (4-49) U/L Alkaline Phosphatase (38-126) U/L Total Protein (6.3-8.2) g/dL Albumin (3.5-5.0) g/dL 03/27/20 03/27/20 03/27/20 Range/Units 18:59 20:57 23:41 WBC (3.8-10.6) k/uL RBC (4.30-5.90) m/uL Hgb (13.0-17.5) gm/dL Hct (39.0-53.0) % RDW (11.5-15.5) % Neutrophils # (Manual) (1.3-7.7) k/uL Lymphocytes # (Manual) (1.0-4.8) k/uL Monocytes # (Manual) (0-1.0) k/uL Myelocytes # (Manual) (0) k/uL PT (9.0-12.0) sec INR (<1.2) APTT (22.0-30.0) sec Sodium (137-145) mmol/L Potassium 5.7 H 5.6 H (3.5-5.1) mmol/L Chloride (98-107) mmol/L BUN (9-20) mg/dL Creatinine (0.66-1.25) mg/dL Glucose (74-99) mg/dL POC Glucose (mg/dL) 163 H (75-99) mg/dL Calcium (8.4-10.2) mg/dL Total Bilirubin (0.2-1.3) mg/dL AST (17-59) U/L ALT (4-49) U/L Alkaline Phosphatase (38-126) U/L Total Protein (6.3-8.2) g/dL Albumin (3.5-5.0) g/dL 03/28/20 03/28/20 03/28/20 Range/Units 04:05 04:05 04:05 WBC 19.7 H (3.8-10.6) k/uL RBC 4.00 L (4.30-5.90) m/uL Hgb 10.7 L (13.0-17.5) gm/dL Hct 34.2 L (39.0-53.0) % RDW 17.7 H (11.5-15.5) % Neutrophils # (Manual) 16.50 H (1.3-7.7) k/uL Lymphocytes # (Manual) (1.0-4.8) k/uL Monocytes # (Manual) 1.38 H (0-1.0) k/uL Myelocytes # (Manual) (0) k/uL PT 89.3 H (9.0-12.0) sec INR 9.1 H* (<1.2) APTT 55.2 H (22.0-30.0) sec Sodium 131 L (137-145) mmol/L Potassium (3.5-5.1) mmol/L Chloride 96 L (98-107) mmol/L BUN 47 H (9-20) mg/dL Creatinine 3.37 H (0.66-1.25) mg/dL Glucose 149 H (74-99) mg/dL POC Glucose (mg/dL) (75-99) mg/dL Calcium 6.3 L* (8.4-10.2) mg/dL Total Bilirubin 3.6 H (0.2-1.3) mg/dL AST 5707 H (17-59) U/L ALT 1695 H (4-49) U/L Alkaline Phosphatase 154 H (38-126) U/L Total Protein 5.5 L (6.3-8.2) g/dL Albumin 2.7 L (3.5-5.0) g/dL 03/28/20 Range/Units 07:12 WBC (3.8-10.6) k/uL RBC (4.30-5.90) m/uL Hgb (13.0-17.5) gm/dL Hct (39.0-53.0) % RDW (11.5-15.5) % Neutrophils # (Manual) (1.3-7.7) k/uL Lymphocytes # (Manual) (1.0-4.8) k/uL Monocytes # (Manual) (0-1.0) k/uL Myelocytes # (Manual) (0) k/uL PT (9.0-12.0) sec INR (<1.2) APTT (22.0-30.0) sec Sodium (137-145) mmol/L Potassium (3.5-5.1) mmol/L Chloride (98-107) mmol/L BUN (9-20) mg/dL Creatinine (0.66-1.25) mg/dL Glucose (74-99) mg/dL POC Glucose (mg/dL) 150 H (75-99) mg/dL Calcium (8.4-10.2) mg/dL Total Bilirubin (0.2-1.3) mg/dL AST (17-59) U/L ALT (4-49) U/L Alkaline Phosphatase (38-126) U/L Total Protein (6.3-8.2) g/dL Albumin (3.5-5.0) g/dL Microbiology - Last 24 Hours (Table) 03/26/20 13:01 Blood Culture - Preliminary Blood No Growth after 24 hours
[2020-03-28] MEDS: PIPERACILLIN-TAZOBACTAM 3.375 GM in SODIUM CHLORIDE 0.9% 100 ML IVPB SCH ×2 (09:53→16:57)
[2020-03-28] MEDS ORDERED: FUROSEMIDE 10 MG/ML 4 ML VIAL IV STA (10:29)
--- NOTE | 2020-03-28 12:08 | PN ---
PROGRESS NOTE PULMONARY/CRITICAL CARE PROGRESS NOTE: DATE OF SERVICE: March 28, 2020 This is a 70-year-old gentleman who was admitted on March 26. He saw my partner yesterday in consultation. He came in with heart failure, ascites, colitis, and a cardiomyopathy with an ejection fraction of about 30% to 35%. Currently, the patient is on 4 L. He is getting dobutamine at 5 mcg/kg per minute and some sodium bicarbonate at 3 amps of bicarb and D5W at 75 mL an hour. The patient is also getting saline at 20 mL an hour. The patient was moved to the ICU on March 27. We are going to check a procalcitonin level on the patient. In addition, we will discontinue the bicarbonate drip. In addition, I did discuss his case with Dr. Palacois, the softball winder and we are going to slowly wean his dobutamine. Today, he will go down from 5 to 2.5 mcg/kg per minute. In addition, the patient was found to have bilateral pleural effusions, chronic atrial fibrillation, cardiogenic shock, liver cirrhosis, lactic acidosis, and leukocytosis. PHYSICAL EXAMINATION: VITAL SIGNS: Current vital signs are reviewed. His temperature was 95.9, heart rate 73, respiratory rate 15, blood pressure 98/56, mean 70 and saturations 97%. GENERAL: Appears in no acute distress. HEENT: Examination is grossly unremarkable. Nasal O2 in place at 4 L. NECK: Supple. Full range of motion. No adenopathy. Neck veins are flat. CARDIOVASCULAR: Examination reveals distant heart sounds. S1, S2 normal. Heart rate 73. There is some irregularity to his rhythm. He may be in atrial fibrillation and back and forth in sinus rhythm when listened to. LUNGS: Reveal diffuse coarse rhonchi. There are some bibasilar crackles. Breath sounds equal. ABDOMEN: Soft. EXTREMITIES: Are intact. Mild edema. SKIN: Without rash. NEUROLOGIC: Examination is brief but nonfocal. LABS: Labs are reviewed. White count 19.7, hemoglobin 10.7, hematocrit 34.2, platelet count 254,000. PT 89.3, INR 9.1, PTT is 55.2. Sodium 131, potassium 5.1, chloride 96, CO2 of 26. Anion gap is 9. BUN and creatinine were 47 and 3.37. His AST was 5707. His ALT was 1695. Alkaline phosphatase 154. Bilirubin 3.6. Albumin 2.7. Microbiology is currently negative. Chest x-ray shows a pacemaker. There is bilateral effusions, right greater than left. There is some bibasilar atelectasis or infiltrate. CURRENT MEDICATIONS: Current medications are reviewed. He is currently on dobutamine, which we turned from 5 down to 2.5 mcg/kg per minute, Lasix 40 mg IV push x1, Dilaudid, insulin, updrafts with DuoNeb, midodrine, Zofran Protonix, and Zosyn. ASSESSMENT: 1. Acute on chronic systolic heart failure, in a patient with ischemic cardiomyopathy and left ventricular dysfunction, and ejection fraction of 30% to 35%. 2. Cardiogenic shock. 3. Chronic atrial fibrillation. 4. Congestive hepatopathy. 5. Possible abdominal sepsis. 6. Lactic acidosis. 7. Rule out mesenteric ischemia. 8. Cardiorenal syndrome. 9. Coumadin-induced coagulopathy. 10.History of coronary artery disease. 11.Hyperlipidemia. 12.History of hypertension. 13.Prior history of myocardial infarction. 14.Status post pacemaker insertion. PLAN: Currently, the patient's dobutamine will be weaned down. He will be dropped from 5 to 2.5 mcg/kg per minute. We will stop the bicarbonate drip. The patient will have a procalcitonin level checked. The patient is going to get a Lasix dose 40 mg IV push x1 today. Overall prognosis remains very guarded. He was a heavy smoker in the past. Does not smoke currently. May have some underlying COPD. Medications are reviewed. Adjustments are made. Overall prognosis is guarded. Critical care time greater than 30 minutes. MMODL / IJN: [id number] /
--- NOTE | 2020-03-28 14:14 | PN ---
PROGRESS NOTE Patient is seen for followup for acute kidney injury and hyperkalemia. His renal function has worsened. Creatinine has gone up from 2.58 to 3.37. Urine output remains low at about 10-20 mL an hour. The patient has borderline blood pressure with systolic in the 90s. He is maintained on dobutamine drip. He is also on oral midodrine. His INR remains elevated and he is receiving vitamin K. No active bleeding noted at this time. The patient has been talked to regarding the possibility of renal replacement therapy in case his renal function worsens. At this time, he is agreeable. No nausea or vomiting. No significant shortness of breath. PHYSICAL EXAMINATION: On examination today, blood pressure was 93/54, heart rate 75 per minute. Patient is afebrile. O2 saturations 97% on 4 L nasal cannula. EXAMINATION OF THE HEART: S1, S2. EXAMINATION OF THE LUNGS: Decreased breath sounds at the bases. Abdomen is soft, nontender. Examination of the lower extremities shows edema 1+ bilaterally. 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 LABS: Labs show hemoglobin 10.7 g/dL, sodium 131, potassium 5.1, chloride 96, CO2 is 26, BUN 47, serum creatinine 3.37. Calcium was 6.3. Troponin 0.086. ASSESSMENT: 1. Acute kidney injury secondary to hypoperfusion, hypotension as well as contrast nephropathy. Urine output is currently on the lower side. Will give 1 dose of Lasix. The patient is advised regarding possibility of dialysis if his renal function continues to worsen. At this time he is agreeable. However, no indication for dialysis today. We will repeat labs again in a.m. 2. Mild volume overload. Try IV Lasix. If patient continues to respond, we will give him another dose later on tonight. 3. Hyperkalemia associated with acute kidney injury, now improved. 4. Cardiomyopathy, ejection fraction about 35%, being followed by Cardiology. Currently maintained on dobutamine. 5. Shock with possible underlying infection versus cardiogenic shock maintained on dobutamine. Also, maintained on empiric antibiotics. 6. Lactic acidosis associated with shock and hypotension and hypoperfusion, currently improved. 7. Moderate to severe tricuspid regurgitation. 8. Coronary artery disease with history of coronary intervention and stent placement. 9. Atrial fibrillation with controlled ventricular response. 10.Elevated troponin. 11.Elevated liver enzymes secondary to shock, currently improving. PLAN: Lasix IV x1 repeat later on tonight if patient has improved urine output. Continue to avoid nephrotoxic agents. If renal function continues to worsen significantly with poor urine output, we will start hemodialysis. The patient is agreeable. MASSIMO / ROSARIO: [id number] /
--- NOTE | 2020-03-28 15:31 | P.PN ---
Subjective Progress Note Date: 03/28/20 Principal diagnosis: Elevated LFTs and jaundice, abdominal pain The patient was seen and examined sitting up in bed in the ICU sleepy but easily arousable. He states his abdominal pain is about the same. He denies any vomiting but states he is nauseated. The liver enzymes continue to slowly trend down. Surgery, cardiology, pulmonology, and hematology all on consult and fol lowing patient closely. INR today 9.1 status post 10 units of vitamin K. Another 10 units of vitamin K have been ordered. Hemoglobin is stable at 10.7, with no signs or symptoms of any GI bleed. Also had elevated troponins this morning, for which cardiology is following closely. According to nursing he has had limited urine output 10-20 miles per hour. Objective - Vital Signs Vital signs: Vital Signs Temp 95.9 F L 03/28/20 07:00 Pulse 73 03/28/20 10:00 Resp 15 03/28/20 10:00 BP 98/56 03/28/20 10:00 Pulse Ox 97 03/28/20 10:00 Intake & Output 03/27/20 03/28/20 03/28/20 18:59 06:59 18:59 Intake Total 225 1461.90 221.7 Output Total 45 190 78 Balance 180 1271.90 143.7 Weight 78 kg 72.7 kg Intake: IV 225 1401.90 221.7 0.9 NaCl- 220 60 DOBUTamine DRIP 500 mg In 81.90 11.7 Dextrose/Water 1 250ml. bag @ 5 MCG/KG/MIN 11.7 mls/hr IV .[id number] [facility] Rx #:[id number] Dextrose 5% in Water 1, 225 900 150 000 ml @ 75 mls/hr IV . [id number] [facility] with Sodium Bicarb (1 Meq/ml) 150 ml Rx#:[id number] Zosyn 200 Oral 0 60 Output: Urine 45 90 78 Emesis 100 Other: Voiding Method Indwelling Catheter - Exam General appearance: The patient is alert, oriented, in no acute distress. HET: Head is normocephalic and atraumatic. Conjunctiva pink. Sclera anicteric. Neck: Supple without lymphadenopathy. Abdomen: Soft, periumbilical tenderness, nondistended with normal bowel sounds. No guarding or rigidity. Extremities: Normal skin color and turgor. No pedal edema Neurological: No focal deficits. Alert and oriented 3. - Labs CBC & Chem 7: 03/28/20 04:05 03/28/20 04:05 Labs: Abnormal Lab Results - Last 24 Hours (Table) 03/27/20 03/27/20 03/27/20 Range/Units 18:59 20:57 23:41 WBC (3.8-10.6) k/uL RBC (4.30-5.90) m/uL Hgb (13.0-17.5) gm/dL Hct (39.0-53.0) % RDW (11.5-15.5) % Neutrophils # (Manual) (1.3-7.7) k/uL Monocytes # (Manual) (0-1.0) k/uL PT (9.0-12.0) sec INR (<1.2) APTT (22.0-30.0) sec Sodium (137-145) mmol/L Potassium 5.7 H 5.6 H (3.5-5.1) mmol/L Chloride (98-107) mmol/L BUN (9-20) mg/dL Creatinine (0.66-1.25) mg/dL Glucose (74-99) mg/dL POC Glucose (mg/dL) 163 H (75-99) mg/dL Calcium (8.4-10.2) mg/dL Total Bilirubin (0.2-1.3) mg/dL AST (17-59) U/L ALT (4-49) U/L Alkaline Phosphatase (38-126) U/L Troponin I (0.000-0.034) ng/mL Total Protein (6.3-8.2) g/dL Albumin (3.5-5.0) g/dL 03/28/20 03/28/20 03/28/20 Range/Units 04:05 04:05 04:05 WBC 19.7 H (3.8-10.6) k/uL RBC 4.00 L (4.30-5.90) m/uL Hgb 10.7 L (13.0-17.5) gm/dL Hct 34.2 L (39.0-53.0) % RDW 17.7 H (11.5-15.5) % Neutrophils # (Manual) 16.50 H (1.3-7.7) k/uL Monocytes # (Manual) 1.38 H (0-1.0) k/uL PT 89.3 H (9.0-12.0) sec INR 9.1 H* (<1.2) APTT 55.2 H (22.0-30.0) sec Sodium 131 L (137-145) mmol/L Potassium (3.5-5.1) mmol/L Chloride 96 L (98-107) mmol/L BUN 47 H (9-20) mg/dL Creatinine 3.37 H (0.66-1.25) mg/dL Glucose 149 H (74-99) mg/dL POC Glucose (mg/dL) (75-99) mg/dL Calcium 6.3 L* (8.4-10.2) mg/dL Total Bilirubin 3.6 H (0.2-1.3) mg/dL AST 5707 H (17-59) U/L ALT 1695 H (4-49) U/L Alkaline Phosphatase 154 H (38-126) U/L Troponin I (0.000-0.034) ng/mL Total Protein 5.5 L (6.3-8.2) g/dL Albumin 2.7 L (3.5-5.0) g/dL 03/28/20 03/28/20 Range/Units 04:05 07:12 WBC (3.8-10.6) k/uL RBC (4.30-5.90) m/uL Hgb (13.0-17.5) gm/dL Hct (39.0-53.0) % RDW (11.5-15.5) % Neutrophils # (Manual) (1.3-7.7) k/uL Monocytes # (Manual) (0-1.0) k/uL PT (9.0-12.0) sec INR (<1.2) APTT (22.0-30.0) sec Sodium (137-145) mmol/L Potassium (3.5-5.1) mmol/L Chloride (98-107) mmol/L BUN (9-20) mg/dL Creatinine (0.66-1.25) mg/dL Glucose (74-99) mg/dL POC Glucose (mg/dL) 150 H (75-99) mg/dL Calcium (8.4-10.2) mg/dL Total Bilirubin (0.2-1.3) mg/dL AST (17-59) U/L ALT (4-49) U/L Alkaline Phosphatase (38-126) U/L Troponin I 0.086 H* (0.000-0.034) ng/mL Total Protein (6.3-8.2) g/dL Albumin (3.5-5.0) g/dL Microbiology - Last 24 Hours (Table) 03/26/20 13:01 Blood Culture - Preliminary Blood No Growth after 24 hours Assessment and Plan (1) Transaminitis Narrative/Plan: This is s a patient who presented to the hospital with worsening shortness of breath diffuse abdominal pain associated with nausea, vomiting and not feeling well since November of last year. He's had a weight loss of approximately 20 pounds. At the time of admission to the hospital he was noted to have leukocytosis and increased serum transaminases as well as bilirubin up to 3.8 area computed tomography scan and ultrasound showed no evidence of gallstones or biliary ductal dilation. He has a long-standing history of ischemic cardiomyopathy with an ejection fraction of 30% and status post AICD implantation. He was also noted to have lactic acidosis at presentation. The clinical picture is more consistent with a global hypoperfusion causing ischemic hepatitis impossibility of small bowel ischemia cannot be excluded. His BUN and creatinine were also elevated consistent with hypoperfusion state. The patient has been started on Zosyn. Possible cirrhosis of the liver based on imaging studies, the CAT scan showed nodular appearing liver which appears to be decompensated with the current clinical situation. Current Visit: Yes Status: Acute Priority: High Code(s): R74.01 - ELEVATION OF LEVELS OF LIVER TRANSAMINASE LEVELS SNOMED Code(s): 880481002 (2) Abdominal pain Current Visit: Yes Status: Acute Code(s): R10.9 - UNSPECIFIED ABDOMINAL PAIN SNOMED Code(s): 12354030 (3) Ascites Narrative/Plan: Small amount of ascites noted on CT of the abdomen Current Visit: Yes Status: Acute Code(s): R18.8 - OTHER ASCITES SNOMED Code(s): 898976079 (4) Afib Narrative/Plan: Patient has a history of atrial fibrillation and was on several toe, it is currently on hold. INR is significantly elevated Current Visit: No Status: Acute Code(s): I48.91 - UNSPECIFIED ATRIAL FIBRILLATION SNOMED Code(s): 34498708 Plan: 1. Continue supportive and symptomatic care 2. Continue with recommendations from surgery, cardiology, and nephrology 3. Diet per surgery recommendations 4. Agree with vitamin K to reverse coagulopathy 5. Continue with broad-spectrum antibiotics 6. Avoid hepatotoxic medications, including statins for now. 7. Daily CBC, INR, CMP 8. We will follow with you closely Dr. Haque I agree with the dictator's note, documented as a scribe by Yvrose Duke.
--- NOTE | 2020-03-28 16:05 | P.CONS ---
History of Present Illness - Reason for Consult Consult date: 03/28/20 possible DIC Requesting physician: Vinicio Murillo - Chief Complaint N,V,D, abd pain - History of Present Illness Mr. Obrien is a very pleasant 70 year old male with a significant history of cardivascular disease, 7 stents, pacer/defibrillator, Hx AZ, HTN, hyperlipidemia, a-fib on anticoagulation. Admitted with N,V,D, abd pain, been going on since Nov 2019, persistent, progressive, 30lb wt loss. Denies personal Hx of cancer or known liver disease. He feels unwell, no fevers, had to be warmed up due to low temp, he has not vomited blood or had any blood in stool that he can tell. No bleeding to report, Nursing did not note blood at invasive lines. He has been seen by Surgery, Cardiology, Pulmonary and Nephrology. We are asked to see him for concerns of DIC. Review of Systems 14 point ROS is neg except as stated in HPI Past Medical History Past Medical History: Atrial Fibrillation, Coronary Artery Disease (CAD), Hyperlipidemia, Hypertension, Myocardial Infarction (AZ), Pneumonia Additional Past Medical History / Comment(s): X3 AZ'S, ULCER YEARS AGO, bradycardia Last Myocardial Infarction Date:: 2004 History of Any Multi-Drug Resistant Organisms: None Reported Past Surgical History: AICD, Cardiac Ablation, Heart Catheterization With Stent, Orthopedic Surgery, Pacemaker Additional Past Surgical History / Comment(s): CARDIOVERSION, HEART STENTS X7, cardiac ablation x 2 in the past and again om 12-05-15, rt wrist surgery after injury Past Anesthesia/Blood Transfusion Reactions: No Reported Reaction Additional Past Anesthesia/Blood Transfusion Reaction / Comm: NEVER HAS HAD GENERAL ANESTHESIA Date of Last Stent Placement:: 2004 Type of Cardiac Device: AICD Device Placement Date:: 2015 Past Psychological History: No Psychological Hx Reported Smoking Status: Former smoker Past Alcohol Use History: None Reported Past Drug Use History: None Reported - Past Family History Father Additional Family Medical History / Comment(s): DAD HAD PACER BUT NO OTHER HX KNOWN Mother Family Medical History: No Reported History Additional Family Medical History / Comment(s): pt stated does'nt know medical hx on parents. Medications and Allergies Home Medications Medication Instructions Recorded Confirmed Type Atorvastatin [Lipitor] 80 mg PO HS 11/27/13 03/26/20 History Enalapril Maleate 2.5 mg PO HS 11/27/13 03/26/20 History Rivaroxaban [Xarelto] 20 mg PO W/SUPPER #30 tab 12/14/19 03/26/20 Rx Amiodarone [Cordarone] 200 mg PO DAILY 02/09/20 03/26/20 History Furosemide [Lasix] 20 mg PO DAILY 02/09/20 03/26/20 History Omeprazole [PriLOSEC] 40 mg PO DAILY 02/09/20 03/26/20 History Spironolactone [Aldactone] 50 mg PO DAILY 02/09/20 03/26/20 History Metoprolol Succinate (ER) [Toprol 25 mg PO DAILY 03/11/20 03/26/20 History XL] Aspirin 81 mg PO DAILY #30 chew 03/14/20 03/26/20 Rx Allergies Allergy/AdvReac Type Severity Reaction Status Date / Time No Known Allergies Allergy Verified 03/26/20 14:55 Physical Exam Vitals: Vital Signs Temp Pulse Pulse Resp BP BP Pulse Ox 03/28/20 10:00 73 15 98/56 97 03/28/20 09:30 72 14 98/55 96 03/28/20 09:00 75 22 90/50 95 03/28/20 08:30 73 17 94 L 03/28/20 08:00 72 15 97/56 95 03/28/20 07:40 72 03/28/20 07:30 71 10 L 100/57 87 L 03/28/20 07:26 72 03/28/20 07:00 95.9 F L 71 10 L 99/60 97 03/28/20 06:30 73 18 100/58 96 03/28/20 06:00 97.0 F L 73 20 97/57 97 03/28/20 05:30 71 16 105/61 97 03/28/20 05:00 96.6 F L 75 17 91/59 97 03/28/20 04:30 73 14 97/57 96 03/28/20 04:00 96.4 F L 74 15 91/49 95 03/28/20 03:30 96.1 F L 71 13 90/49 94 L 03/28/20 03:00 96.6 F L 70 16 86/48 96 03/28/20 02:30 90 22 82/48 94 L 03/28/20 02:00 97.3 F L 70 15 93/53 95 03/28/20 01:30 73 14 92/53 95 03/28/20 01:00 97.0 F L 71 15 94/58 96 03/28/20 00:30 71 15 100/61 97 03/28/20 00:00 96.6 F L 74 11 L 93/64 97 03/27/20 23:30 71 13 93/48 98 03/27/20 23:00 96.6 F L 70 15 104/59 95 03/27/20 22:30 71 16 99/58 96 03/27/20 22:00 95.9 F L 71 15 90/64 97 03/27/20 21:34 95 03/27/20 21:30 72 15 101/53 95 03/27/20 21:00 96.6 F L 75 23 98/59 97 03/27/20 20:30 96.8 F L 75 18 100/52 97 03/27/20 20:00 95.9 F L 77 22 106/61 97 03/27/20 19:30 78 18 107/60 97 03/27/20 19:00 80 22 115/62 97 03/27/20 18:30 80 16 102/50 98 03/27/20 18:00 96.6 F L 80 16 94/57 98 03/27/20 17:30 84 19 103/62 98 03/27/20 17:00 77 15 77/57 97 03/27/20 16:30 76 16 87/54 97 03/27/20 16:00 95 F L 75 24 90/61 97 03/27/20 15:30 94.3 F L 76 21 97/70 96 03/27/20 14:00 80 18 03/27/20 12:00 80 18 100/67 98 Intake and Output 03/27/20 03/28/20 03/28/20 22:59 06:59 14:59 Intake Total 702.55 984.35 221.7 Output Total 170 65 78 Balance 532.55 919.35 143.7 Intake: IV 702.55 924.35 221.7 0.9 NaCl- 60 160 60 DOBUTamine DRIP 500 mg In 17.55 64.35 11.7 Dextrose/Water 1 250ml. bag @ 5 MCG/KG/MIN 11.7 mls/hr IV .[id number] BRENT Rx #:[id number] Dextrose 5% in Water 1, 525 600 150 000 ml @ 75 mls/hr IV . [id number] BRENT with Sodium Bicarb (1 Meq/ml) 150 ml Rx#:[id number] Zosyn 100 100 Oral 0 60 Output: Urine 70 65 78 Emesis 100 Other: Voiding Method Indwelling Catheter Indwelling Catheter Weight 72.7 kg - Constitutional General appearance: average body habitus, cooperative, mild distress - EENT Eyes: anicteric sclerae, EOMI ENT: hearing grossly normal, normal oropharynx - Neck Neck: no lymphadenopathy - Respiratory Respiratory: bilateral: diminished (bilateral bases) - Cardiovascular Rhythm: regular Heart sounds: normal: S1, S2 Abnormal Heart Sounds: no systolic murmur, no diastolic murmur, no rub, no S3 Gallop, no S4 Gallop, no click, no other leg Peripheral Edema: bilateral: Trace - Gastrointestinal General gastrointestinal: normal bowel sounds, soft Localized gastrointestinal: tender: RUQ (fullness) - Integumentary Integumentary: normal - Neurologic Neurologic: CNII-XII intact - Musculoskeletal Musculoskeletal: generalized weakness - Psychiatric Psychiatric: A&O x's 3, appropriate affect, intact judgment & insight Results CBC & Chem 7: 03/28/20 04:05 03/28/20 04:05 Labs: Abnormal Lab Results - Last 24 Hours (Table) 03/27/20 03/27/20 03/27/20 Range/Units 06:10 18:59 20:57 WBC (3.8-10.6) k/uL RBC (4.30-5.90) m/uL Hgb (13.0-17.5) gm/dL Hct (39.0-53.0) % RDW (11.5-15.5) % Neutrophils # (Manual) 26.20 H (1.3-7.7) k/uL Lymphocytes # (Manual) 0.88 L (1.0-4.8) k/uL Monocytes # (Manual) 2.04 H (0-1.0) k/uL Myelocytes # (Manual) 0.29 H (0) k/uL PT (9.0-12.0) sec INR (<1.2) APTT (22.0-30.0) sec Sodium (137-145) mmol/L Potassium 5.7 H 5.6 H (3.5-5.1) mmol/L Chloride (98-107) mmol/L BUN (9-20) mg/dL Creatinine (0.66-1.25) mg/dL Glucose (74-99) mg/dL POC Glucose (mg/dL) (75-99) mg/dL Calcium (8.4-10.2) mg/dL Total Bilirubin (0.2-1.3) mg/dL AST (17-59) U/L ALT (4-49) U/L Alkaline Phosphatase (38-126) U/L Troponin I (0.000-0.034) ng/mL Total Protein (6.3-8.2) g/dL Albumin (3.5-5.0) g/dL 03/27/20 03/28/20 03/28/20 Range/Units 23:41 04:05 04:05 WBC (3.8-10.6) k/uL RBC (4.30-5.90) m/uL Hgb (13.0-17.5) gm/dL Hct (39.0-53.0) % RDW (11.5-15.5) % Neutrophils # (Manual) (1.3-7.7) k/uL Lymphocytes # (Manual) (1.0-4.8) k/uL Monocytes # (Manual) (0-1.0) k/uL Myelocytes # (Manual) (0) k/uL PT 89.3 H (9.0-12.0) sec INR 9.1 H* (<1.2) APTT 55.2 H (22.0-30.0) sec Sodium 131 L (137-145) mmol/L Potassium (3.5-5.1) mmol/L Chloride 96 L (98-107) mmol/L BUN 47 H (9-20) mg/dL Creatinine 3.37 H (0.66-1.25) mg/dL Glucose 149 H (74-99) mg/dL POC Glucose (mg/dL) 163 H (75-99) mg/dL Calcium 6.3 L* (8.4-10.2) mg/dL Total Bilirubin 3.6 H (0.2-1.3) mg/dL AST 5707 H (17-59) U/L ALT 1695 H (4-49) U/L Alkaline Phosphatase 154 H (38-126) U/L Troponin I (0.000-0.034) ng/mL Total Protein 5.5 L (6.3-8.2) g/dL Albumin 2.7 L (3.5-5.0) g/dL 03/28/20 03/28/20 03/28/20 Range/Units 04:05 04:05 07:12 WBC 19.7 H (3.8-10.6) k/uL RBC 4.00 L (4.30-5.90) m/uL Hgb 10.7 L (13.0-17.5) gm/dL Hct 34.2 L (39.0-53.0) % RDW 17.7 H (11.5-15.5) % Neutrophils # (Manual) 16.50 H (1.3-7.7) k/uL Lymphocytes # (Manual) (1.0-4.8) k/uL Monocytes # (Manual) 1.38 H (0-1.0) k/uL Myelocytes # (Manual) (0) k/uL PT (9.0-12.0) sec INR (<1.2) APTT (22.0-30.0) sec Sodium (137-145) mmol/L Potassium (3.5-5.1) mmol/L Chloride (98-107) mmol/L BUN (9-20) mg/dL Creatinine (0.66-1.25) mg/dL Glucose (74-99) mg/dL POC Glucose (mg/dL) 150 H (75-99) mg/dL Calcium (8.4-10.2) mg/dL Total Bilirubin (0.2-1.3) mg/dL AST (17-59) U/L ALT (4-49) U/L Alkaline Phosphatase (38-126) U/L Troponin I 0.086 H* (0.000-0.034) ng/mL Total Protein (6.3-8.2) g/dL Albumin (3.5-5.0) g/dL Microbiology - Last 24 Hours (Table) 03/26/20 13:01 Blood Culture - Preliminary Blood No Growth after 24 hours Chest x-ray: report reviewed Assessment and Plan (1) Coagulopathy Narrative/Plan: 2/2 liver dysfunction and on anticoagulation. Suspect shock to the organs when pt had severe hypotension. Pt has moderate to severe cardiovascular disease. Imaging notes in SMA and celiac. Coags and fibrinogen daily Vit K daily x 3 Hgb monitoring-10.7 today Current Visit: Yes Status: Acute Priority: High Code(s): D68.9 - COAGULATION DEFECT, UNSPECIFIED SNOMED Code(s): 05569119 (2) Transaminitis Narrative/Plan: GI evaluation. Current Visit: Yes Status: Acute Priority: High Code(s): R74.01 - ELEVATION OF LEVELS OF LIVER TRANSAMINASE LEVELS SNOMED Code(s): 281692999 Plan: Attests: I have performed H&P and developed impression and plan of care. Discussed with dictator. Agree with dictation, documented as a scribe.
[2020-03-28] MEDS: DOBUTamine DRIP 500 MG in DEXTROSE/WATER 1 250ML.BAG IV SCH (16:57)
[2020-03-28 17:51] LABS: Glucose,Whole Blood 139 mg/dL (75-99)
--- NOTE | 2020-03-28 18:29 | ECHOF ---
Referral Reason:re: hypotension, cardiomyopathy MEASUREMENTS -------- HEIGHT: 175.3 cm WEIGHT: 72.6 kg BP: 90/50 IVSd: 1.0 cm (0.6 - 1.1) LVIDd: 5.1 cm (3.9 - 5.3) LVPWd: 1.3 cm (0.6 - 1.1) IVSs: 1.5 cm LVIDs: 4.3 cm LVPWs: 1.6 cm FINDINGS -------- Sinus rhythm. Limited Study The left ventricular size is normal. Left ventricular wall thickness is normal. There is moderate global hypokinesis of LV . Overall left ventricular systolic function is severely impaired with, a n EF between 25 - 30 %. Moderate mitral regurgitation is present. There is a small, generalized pericardial effusion present. CONCLUSIONS -------- 1. The left ventricular size is normal. 2. Left ventricular wall thickness is normal. 3. There is moderate global hypokinesis of LV . 4. Overall left ventricular systolic function is severely impaired with, an EF between 25 - 30 %. 5. Moderate mitral regurgitation is present. 6. There is a small, generalized pericardial effusion present. CATERERS HELPER: Fawn Terry RDCS
--- NOTE | 2020-03-28 20:04 | P.PN ---
Progress Note - Text Progress Note Date: 03/28/20 Chief Complaint: Abdominal pain History of presenting complaint: This is a pleasant 69-year-old patient of Dr. Cheatham. Chronic stable medical conditions include coronary artery disease, hyperlipidemia, multiple MIs in the past, coronary stent, peptic ulcer disease, ischemic cardiomyopathy, previous V. tach ablation, atrial fibrillation,. 2 weeks ago patient was admitted with CHF exacerbation. Cardiac catheterization [March 14] showed chronically occluded RCA with extensive rcpy-sp-omyew collaterals. Also some focal obstructive lesion in the circumflex. Creatinine then was 1.16. Patient now presents with having nausea vomiting "a few days. Also having dif fuse abdominal pain. Appetite is rather poor. Has not had a bowel movement for 5 days. Shortness of breath. Denies any fever and chills. Occasional cough. Some edema. Has orthopnea. Admitted with suspected ischemic colitis, causing resultant hypotension, severe lactic acidosis ischemic hepatitis, abnormal regulation profile with a contribution from xarelto, pulmonary edema with acute CHF exacerbation. Patient was given vitamin K put on IV dobutamine, bronchodilators will be ICU. Started on IV Zosyn. [id number] improvement in abdominal pain. Tired. No evidence of bleeding. Did receive vitamin K today. Remains on IV dobutamine Review of systems: Was done for constitutional, cardiovascular, GI, pulmonary. relevant finding as above Active Medications Albuterol/Ipratropium (Ipratropium-Albuterol 3 Ml Neb) 3 ml INHALATION RT-QID [facility] Last Admin: 03/28/20 15:15 Dose: 3 ml Documented by: Hydromorphone HCl (Hydromorphone 0.5 Mg/0.5 Ml Syringe) 0.5 mg IVP Q4HR PRN PRN Reason: Pain Last Admin: 03/26/20 14:42 Dose: 0.5 mg Documented by: Piperacillin Sod/Tazobactam (Sod 3.375 gm/ Sodium Chloride) 100 mls @ 200 mls/hr IVPB Q8HR [facility] Last Admin: 03/28/20 16:57 Dose: 200 mls/hr Documented by: Dobutamine HCl/Dextrose 500 mg (/ IV Solution) 250 mls @ 5.85 mls/hr IV .Q24H [facility] Last Admin: 03/28/20 16:57 Dose: Not Given Documented by: Phytonadione 5 mg/ Sodium (Chloride) 50.5 mls @ 100 mls/hr IVPB DAILY [facility] Stop: 03/31/20 09:31 Midodrine (Midodrine 5 Mg Tab) 10 mg PO AC-TID [facility] Last Admin: 03/28/20 16:57 Dose: 10 mg Documented by: Pantoprazole Sodium (Pantoprazole 40 Mg Tablet) 40 mg PO BID [facility] Last Admin: 03/28/20 08:56 Dose: 40 mg Documented by: Prochlorperazine Edisylate (Prochlorperazine Inj 10 Mg/2 Ml Vial) 10 mg IVP Q6H PRN PRN Reason: Nausea And Vomiting Past medical history to include: Coronary artery disease with stent, multiple MIs, hyperlipidemia, peptic ulcer disease, CHF EF 35-40%, ventricular tachycardia ablation, AICD placement, chronic atrial fibrillation, Social history: Lives alone. Smoking a pack a day closed to 59 years, takes about 6 pack a week. 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 Conjunctiva normal. HEENT: External appearance of nose and ears normal, oral cavity grossly normal. NECK: JVD possibly raised; masses not palpable. HEART: Irregular heart sounds; edema present. LUNGS: Respiratory rate increased, decreased breath sounds. ABDOMEN: Soft, decreased tenderness, no guarding rigidity, liver spleen not palpable, no masses palpable. PSYCH: Alert and oriented x3; mood and affect tired appearing INVESTIGATIONS, reviewed in the clinical context: March 28: White count 19.7 hemoglobin 10.7 platelets 254 ProTime 89.3 INR 9.1 PTT 55.2 sodium 131 potassium 5.1 bun 47 creatinine 3.37 calcium 6.3 bilirubin 53.6 AST 07/22/2006 ALT 1695 troponin I 0.086, 0.068 pro-calcitonin 1.96 White count 29.2 hemoglobin 12.2 platelets 327 ProTime greater than 10 Potassium 6 bicarbonate 17 bun 29 creatinine 2.58 total bilirubin 3.8 AST 7392 ALT 1842 Admission testing: White count 25.4 hemoglobin 13.6 platelets 384 Sodium 135 potassium 5.7 creatinine 1.61 lactic 10.4 total bilirubin 3.2 AST 1472 ALT 537 Coronavirus-P/Cr-not detected Computed tomography scan of the abdomen pelvis-moderate size bilateral pleural effusion and compression atelectasis, Harp[facility] of the colon the right colon contracted gallbladder Ultrasound-contracted gallbladder EKG tracing personally reviewed by me-atrial fibrillation rate of 91 Chest x-ray film-pleural effusion atelectasis Previous testing: Hemoglobin 11.6 on March 14 Creatinine 1.16 on March 14 Assessment: -Suspect underlying ischemic colitis given that the patient has got significant vascular disease, infective component cannot be ruled out -Acute ischemic hepatitis, severe from CHF and hypotension-slow to respond -Abnormal coagulation profile with a combination of patient poor oral intake and also being on an xarelto and also vitamin K deficiency-given vitamin K -AICD -Coronary artery disease with prior history of stents -Acute on chronic congestive heart failure exacerbation from systolic dysfunction EF 30-35%-slow to respond -Acute hypoxic respiratory failure from pulmonary edema on 4 L of nasal cannula- slow to respond -Moderate tricuspid regurgitation -Hyperlipidemia -Persistent atrial fibrillation/flutter-rate controlled -Chronic nicotine dependence patient active cigarette smoker -Acute kidney injury likely ATN from cardiorenal syndrome, the possible contribution from contrast-induced nephropathy from cardiac catheterization and IV contrast with computed tomography scan-worsening -Bilateral pleural effusion from CHF with a prior history of thoracentesis -Metabolic acidosis multifactorial -Hyperkalemia from renal failure -Troponin leak from acute kidney injury and hemodynamic instability Plan: Patient currently on IV dobutamine, IV Zosyn, vitamin K. Patient is off any pressors. In the ICU. Prognosis guarded.
[2020-03-28] MEDS: PROCHLORPERAZINE INJ 10 MG/2 ML VIAL IVP PRN (22:29)
[2020-03-28] MEDS ORDERED: BENZOCAINE/MENTHOL LOZENG 1 EACH LOZENGE MUCOUS MEM PRN (22:33)
[2020-03-29] MEDS: PIPERACILLIN-TAZOBACTAM 3.375 GM in SODIUM CHLORIDE 0.9% 100 ML IVPB SCH ×4 (00:46→23:51)
[2020-03-29 00:49] LABS: Glucose,Whole Blood 121 mg/dL (75-99)
[2020-03-29 04:31] LABS: Anisocytosis Slight; Basophils % (A) 0 %; Eosinophils % (A) 0 %; HGB 11.2 gm/dL (13.0-17.5); Hypochromasia Slight; Lymphocytes # (A) 0.8 k/uL (1.0-4.8); Lymphocytes % (A) 6 %; MCH 26.7 pg (25.0-35.0); MCV 83.2 fL (80.0-100.0); Mean Platelet Volume 9.2; Monocytes # (A) 0.8 k/uL (0-1.0); Monocytes % (A) 6 %; Neutrophils # (A) 11.4 k/uL (1.3-7.7); Neutrophils % (A) 87 %; Platelet Count 215 k/uL (150-450); Poikilocytosis Slight; RBC 4.21 m/uL (4.30-5.90); RDW 17.6 % (11.5-15.5); WBC 13.2 k/uL (3.8-10.6)
[2020-03-29 04:43] LABS: Partial Thromboplastin Time 49.1 sec (22.0-30.0); Prothrombin Time 38.4 sec (9.0-12.0)
[2020-03-29 04:46] LABS: Albumin 2.7 g/dL (3.5-5.0); Calcium 6.8 mg/dL (8.4-10.2); Potassium 4.2 mmol/L (3.5-5.1); Total Bilirubin 4.4 mg/dL (0.2-1.3); Total Protein 5.6 g/dL (6.3-8.2)
[2020-03-29 06:13] LABS: Glucose,Whole Blood 112 mg/dL (75-99)
[2020-03-29] MEDS: IPRATROPIUM-ALBUTEROL 3 ML NEB INHALATION SCH ×4 (07:20→19:07)
--- NOTE | 2020-03-29 08:45 | P.PN ---
Subjective HISTORY OF PRESENTING ILLNESS Patient is a pleasant 70-year-old male with history of CAD with multiple stents in the past, ischemic cardiomyopathy, atrial fibrillation on Xarelto, subcutaneous AICD, ventricular tachycardia with ICD discharge in November on amiodarone, multiple ablations in the past who normally follows with Dr. Curry. Patient did have an AICD discharge in November admits he has not felt well since that time. Mainly he has been having nausea, vomiting, problems with eating more substantial foods with abdominal pain when he does eat these and approximate 20-30 pound weight loss. Patient did present in February where he had catheterization performed with CT of the RCA with [id number] collaterals and mild to moderate disease of the circumflex and no significant stenosis of the LAD. Patient presented mainly with continued nausea, vomiting and abdominal pain and was found to have increased lactic acidosis, leukocytosis, acute kidney injury and hypotension. He did have a CTA performed of the abdomen and pelvis which showed a small amount of ascites, wall thickening of the colon and mention of the SMA and celiac axis the diminutive size with extensive vascular disease. He additionally had coagulopathy with INR of 9, shock liver with AST and ALTs in the thousands. His amiodarone was stopped. 03/29/20 Patient seen and examined. Dobutamine was weaned off and systolics predominantly 90s to 100 100s. He admits his chronic shortness breath however no change. Denies any chest pain or pressure. Creatinine remained somewhat stable at 3.38 however he did have good urine output with Lasix. Liver enzymes are trending down. Admits to continued abdominal pain however better than when he came in. Patient in A. fib with controlled ventricular rates currently. REVIEW OF SYSTEMS At the time of my exam: CONSTITUTIONAL: Denies fever or chills. CARDIOVASCULAR: Denies chest pain, shortness of breath, or palpitations. RESPIRATORY: Denies cough. GASTROINTESTINAL: + abdominal pain, no diarrhea, constipation, nausea or vomiting. MUSCULOSKELETAL: Denies myalgias. NEUROLOGIC: Denies numbness, tingling or weakness. ENDOCRINE: + fatigue, +weight loss. GENITOURINARY: Denies burning, hematuria or urgency with micturation. HEMATOLOGIC: Denies history of anemia or bleeding. PHYSICAL EXAMINATION Blood pressure 92/54 heart rate 84 afebrile and maintaining oxygen saturation on 2 L nasal cannula. CONSTITUTIONAL: No apparent distress, chronically ill-appearing, thin. HEENT: Head is normocephalic. Pupils are equal, round. Sclerae anicteric. Mucous membranes of the mouth are moist. No carotid bruit. CHEST EXAMINATION: Lungs are clear to auscultation. + Mild crackles at bases HEART EXAMINATION: Regular rate and rhythm. S1, S2 heard. +2/6 systolic murmur. ABDOMEN: Soft, +mildly tender. No bruit noted. Positive bowel sounds. EXTREMITIES: 2+ peripheral pulses, +1+ lower extremity edema and no calf tenderness. NEUROLOGIC EXAMINATION: Patient is awake, alert and oriented x3. ASSESSMENT 1. Shock of unclear etiology. Predominantly appears septic shock with increased white blood cell count and lactic acidosis however he does have significant cardiomyopathy and at least moderate to severe MR and may be a component of cardiogenic shock. Dobutamine has been weaned. 2. Acute liver injury, likely shock liver with coagulopathy. Improving. Possible additional component of amiodarone liver injury. Amiodarone discontinued 3. Ischemic cardiomyopathy with most recent echo 03/12/2020 showing ejection fraction 35-40% 4. CAD with known history of PROGRAM AIDE of RCA with [id number] collaterals, most recent heart catheterization 02/2020 5. At least moderate to severe posteriorly directed mitral regurgitation with posterior leaflet tethering. 6. Moderate to severe tricuspid regurgitation 7. History of hypertension, currently off of all antihypertensives 8. Coagulopathy, improving 9. Acute kidney injury likely related to contrast-induced nephropathy from CTA as well as ATN from hypotension 10. Anemia 11. Elevated troponin, likely type II mechanism from shock 12. Paroyxsmal A. fib 13. AICD present 14. History of ventricular tachycardia status post ablation and AICD, previously on amiodarone 15. Persistent nausea, vomiting, abdominal pain since November. May be a component of mesenteric ischemia. PLAN Vitals and labs appear improving with supportive care. Continue with current yang pportive regimen. Patient has been weaned off of dobutamine. Liver function and INR improving. Continue with empiric antibiotics. Continue to monitor urine output and creatinine. Echocardiogram reviewed and appears to be somewhat worsened ejection fraction 25-30% as well as at least moderate mitral regurgitation. We'll continue with supportive care as majority of decompensation appears related to sepsis. Likely consider AKILAH to evaluate degree of mitral regurgitation. May also consider [facility] heart catheterization to evaluate output and filling pressures however we will defer this till patient stabilizes. May additionally consider mesenteric angiography and possible mesenteric stentin g however has acute kidney injury and primary picture appears to be global hypo- perfusion and would attempt to address shock state first. Prognosis guarded. Objective - Vital Signs Vital signs: Vital Signs Temp 97.7 F 03/29/20 00:00 Pulse 84 03/29/20 07:31 Resp 20 03/29/20 07:31 BP 92/54 03/29/20 07:00 Pulse Ox 94 L 03/29/20 07:20 Intake & Output 03/28/20 03/29/20 03/29/20 18:59 06:59 18:59 Intake Total 705.147 454.35 151.04 Output Total 698 1805 170 Balance 7.147 -1350.65 -18.96 Weight 74.7 kg Intake: IV 601.7 404.35 25.85 0.9 NaCl- 240 240 20 DOBUTamine DRIP 500 mg In 11.7 64.35 5.85 Dextrose/Water 1 250ml. bag @ 2.5 MCG/KG/MIN 5.85 mls/hr IV .Q24H BRENT Rx#: [id number] Dextrose 5% in Water 1, 150 000 ml @ 75 mls/hr IV . [id number] BRENT with Sodium Bicarb (1 Meq/ml) 150 ml Rx#:[id number] Zosyn 200 100 Intake, IV Titration 103.447 125.19 Amount DOBUTamine DRIP 500 mg In 103.447 125.19 Dextrose/Water 1 250ml. bag @ 2.5 MCG/KG/MIN 5.85 mls/hr IV .Q24H BRENT Rx#: [id number] Oral 50 Output: Urine 698 1805 170 Other: Voiding Method Indwelling Catheter Indwelling Catheter - Labs CBC & Chem 7: 03/29/20 03:22 03/29/20 03:22 Labs: Abnormal Lab Results - Last 24 Hours (Table) 03/28/20 03/28/20 03/28/20 Range/Units 04:05 04:05 11:51 WBC (3.8-10.6) k/uL RBC (4.30-5.90) m/uL Hgb (13.0-17.5) gm/dL Hct (39.0-53.0) % RDW (11.5-15.5) % Neutrophils # (1.3-7.7) k/uL Lymphocytes # (1.0-4.8) k/uL PT (9.0-12.0) sec INR (<1.2) APTT (22.0-30.0) sec Sodium (137-145) mmol/L Chloride (98-107) mmol/L BUN (9-20) mg/dL Creatinine (0.66-1.25) mg/dL Glucose (74-99) mg/dL POC Glucose (mg/dL) (75-99) mg/dL Calcium (8.4-10.2) mg/dL Total Bilirubin (0.2-1.3) mg/dL AST (17-59) U/L ALT (4-49) U/L Alkaline Phosphatase (38-126) U/L Troponin I 0.086 H* 0.068 H* (0.000-0.034) ng/mL Total Protein (6.3-8.2) g/dL Albumin (3.5-5.0) g/dL Procalcitonin 1.96 H (0.02-0.09) ng/mL 03/28/20 03/29/20 03/29/20 Range/Units 17:39 00:47 03:22 WBC 13.2 H (3.8-10.6) k/uL RBC 4.21 L (4.30-5.90) m/uL Hgb 11.2 L (13.0-17.5) gm/dL Hct 35.0 L (39.0-53.0) % RDW 17.6 H (11.5-15.5) % Neutrophils # 11.4 H (1.3-7.7) k/uL Lymphocytes # 0.8 L (1.0-4.8) k/uL PT (9.0-12.0) sec INR (<1.2) APTT (22.0-30.0) sec Sodium (137-145) mmol/L Chloride (98-107) mmol/L BUN (9-20) mg/dL Creatinine (0.66-1.25) mg/dL Glucose (74-99) mg/dL POC Glucose (mg/dL) 139 H 121 H (75-99) mg/dL Calcium (8.4-10.2) mg/dL Total Bilirubin (0.2-1.3) mg/dL AST (17-59) U/L ALT (4-49) U/L Alkaline Phosphatase (38-126) U/L Troponin I (0.000-0.034) ng/mL Total Protein (6.3-8.2) g/dL Albumin (3.5-5.0) g/dL Procalcitonin (0.02-0.09) ng/mL 03/29/20 03/29/20 03/29/20 Range/Units 03:22 03:22 06:00 WBC (3.8-10.6) k/uL RBC (4.30-5.90) m/uL Hgb (13.0-17.5) gm/dL Hct (39.0-53.0) % RDW (11.5-15.5) % Neutrophils # (1.3-7.7) k/uL Lymphocytes # (1.0-4.8) k/uL PT 38.4 H (9.0-12.0) sec INR 4.0 H (<1.2) APTT 49.1 H (22.0-30.0) sec Sodium 132 L (137-145) mmol/L Chloride 95 L (98-107) mmol/L BUN 56 H (9-20) mg/dL Creatinine 3.38 H (0.66-1.25) mg/dL Glucose 100 H (74-99) mg/dL POC Glucose (mg/dL) 112 H (75-99) mg/dL Calcium 6.8 L (8.4-10.2) mg/dL Total Bilirubin 4.4 H (0.2-1.3) mg/dL AST 2488 H (17-59) U/L ALT 1242 H (4-49) U/L Alkaline Phosphatase 153 H (38-126) U/L Troponin I (0.000-0.034) ng/mL Total Protein 5.6 L (6.3-8.2) g/dL Albumin 2.7 L (3.5-5.0) g/dL Procalcitonin (0.02-0.09) ng/mL Microbiology - Last 24 Hours (Table) 03/26/20 13:01 Blood Culture - Preliminary Blood No Growth after 48 hours
[2020-03-29] MEDS: MIDODRINE 5 MG TAB PO SCH ×3 (08:57→17:09)
[2020-03-29] MEDS: PANTOPRAZOLE 40 MG TABLET PO SCH ×2 (08:57→20:16)
--- NOTE | 2020-03-29 10:14 | XR ---
EXAMINATION TYPE: XR chest 1V portable DATE OF EXAM: 03/29/2020 COMPARISON: Prior chest x-ray 03/28/2020 HISTORY: Decreased respiratory effort, abnormal chest x-ray TECHNIQUE: Single frontal view of the chest is obtained. FINDINGS: Findings are similar to prior exam. Hemidiaphragms are obscured, bibasilar increased densi ties present. Defibrillator does show similar appearance. Biapical pleural thickening is again noted. Heart size is stable. Aorta is dense. IMPRESSION: There may be worsening effusion, atelectasis or edema, pneumonia at the left lung base c ompared to prior exam.
[2020-03-29 10:23] LABS: % Iron Saturation 4.53 (15.00-50.00)
[2020-03-29 10:24] LABS: Alpha Fetoprotein, Tumor Mkr <2.5 ng/mL (0.0-7.9)
[2020-03-29] MEDS: PHYTONADIONE 5 MG in SODIUM CHLORIDE 0.9% 50 ML IVPB SCH (10:34)
[2020-03-29 10:36] LABS: Protein, Total 5.2 g/dL (6.2-8.2)
--- NOTE | 2020-03-29 11:25 | P.PN ---
Subjective Progress Note Date: 03/29/20 Patient seen and examined at bedside. States overall his abdominal pain is improved, he still has some soreness in the epigastrium. Denies any nausea or vomiting. Objective - Vital Signs Vital signs: Vital Signs Temp 96.6 F L 03/29/20 08:00 Pulse 73 03/29/20 11:11 Resp 13 03/29/20 11:11 BP 88/62 03/29/20 10:00 Pulse Ox 96 03/29/20 10:00 Intake & Output 03/28/20 03/29/20 03/29/20 18:59 06:59 18:59 Intake Total 705.147 454.35 291.04 Output Total 698 1805 420 Balance 7.147 -1350.65 -128.96 Weight 74.7 kg Intake: IV 601.7 404.35 165.85 0.9 NaCl- 240 240 60 DOBUTamine DRIP 500 mg In 11.7 64.35 5.85 Dextrose/Water 1 250ml. bag @ 2.5 MCG/KG/MIN 5.85 mls/hr IV .Q24H BRENT Rx#: [id number] Dextrose 5% in Water 1, 150 000 ml @ 75 mls/hr IV . [id number] BRENT with Sodium Bicarb (1 Meq/ml) 150 ml Rx#:[id number] Zosyn 200 100 100 Intake, IV Titration 103.447 125.19 Amount DOBUTamine DRIP 500 mg In 103.447 125.19 Dextrose/Water 1 250ml. bag @ 2.5 MCG/KG/MIN 5.85 mls/hr IV .Q24H BRENT Rx#: [id number] Oral 50 Output: Urine 698 1805 420 Other: Voiding Method Indwelling Catheter Indwelling Catheter - Constitutional General appearance: Present: cooperative, no acute distress - Gastrointestinal Gastrointestinal Comment(s): Soft, mild tenderness in the epigastrium, nondistended, no rebound, no guarding - Musculoskeletal Musculoskeletal: Present: generalized weakness - Psychiatric Psychiatric: Present: A&O x's 3 - Labs CBC & Chem 7: 03/29/20 03:22 03/29/20 03:22 Labs: Abnormal Lab Results - Last 24 Hours (Table) 03/28/20 03/28/20 03/28/20 Range/Units 04:05 11:51 17:39 WBC (3.8-10.6) k/uL RBC (4.30-5.90) m/uL Hgb (13.0-17.5) gm/dL Hct (39.0-53.0) % RDW (11.5-15.5) % Neutrophils # (1.3-7.7) k/uL Lymphocytes # (1.0-4.8) k/uL PT (9.0-12.0) sec INR (<1.2) APTT (22.0-30.0) sec Sodium (137-145) mmol/L Chloride (98-107) mmol/L BUN (9-20) mg/dL Creatinine (0.66-1.25) mg/dL Glucose (74-99) mg/dL POC Glucose (mg/dL) 139 H (75-99) mg/dL Calcium (8.4-10.2) mg/dL Iron (65-175) ug/dL % Saturation (15.00-50.00) Total Bilirubin (0.2-1.3) mg/dL AST (17-59) U/L ALT (4-49) U/L Alkaline Phosphatase (38-126) U/L Troponin I 0.068 H* (0.000-0.034) ng/mL Total Protein (6.3-8.2) g/dL Total Protein (PEP) (6.2-8.2) g/dL Albumin (3.5-5.0) g/dL Procalcitonin 1.96 H (0.02-0.09) ng/mL 03/29/20 03/29/20 03/29/20 Range/Units 00:47 03:22 03:22 WBC 13.2 H (3.8-10.6) k/uL RBC 4.21 L (4.30-5.90) m/uL Hgb 11.2 L (13.0-17.5) gm/dL Hct 35.0 L (39.0-53.0) % RDW 17.6 H (11.5-15.5) % Neutrophils # 11.4 H (1.3-7.7) k/uL Lymphocytes # 0.8 L (1.0-4.8) k/uL PT (9.0-12.0) sec INR (<1.2) APTT (22.0-30.0) sec Sodium (137-145) mmol/L Chloride (98-107) mmol/L BUN (9-20) mg/dL Creatinine (0.66-1.25) mg/dL Glucose (74-99) mg/dL POC Glucose (mg/dL) 121 H (75-99) mg/dL Calcium (8.4-10.2) mg/dL Iron (65-175) ug/dL % Saturation (15.00-50.00) Total Bilirubin (0.2-1.3) mg/dL AST (17-59) U/L ALT (4-49) U/L Alkaline Phosphatase (38-126) U/L Troponin I (0.000-0.034) ng/mL Total Protein (6.3-8.2) g/dL Total Protein (PEP) 5.2 L (6.2-8.2) g/dL Albumin (3.5-5.0) g/dL Procalcitonin (0.02-0.09) ng/mL 03/29/20 03/29/20 03/29/20 Range/Units 03:22 03:22 06:00 WBC (3.8-10.6) k/uL RBC (4.30-5.90) m/uL Hgb (13.0-17.5) gm/dL Hct (39.0-53.0) % RDW (11.5-15.5) % Neutrophils # (1.3-7.7) k/uL Lymphocytes # (1.0-4.8) k/uL PT 38.4 H (9.0-12.0) sec INR 4.0 H (<1.2) APTT 49.1 H (22.0-30.0) sec Sodium 132 L (137-145) mmol/L Chloride 95 L (98-107) mmol/L BUN 56 H (9-20) mg/dL Creatinine 3.38 H (0.66-1.25) mg/dL Glucose 100 H (74-99) mg/dL POC Glucose (mg/dL) 112 H (75-99) mg/dL Calcium 6.8 L (8.4-10.2) mg/dL Iron 12 L (65-175) ug/dL % Saturation 4.53 L (15.00-50.00) Total Bilirubin 4.4 H (0.2-1.3) mg/dL AST 2488 H (17-59) U/L ALT 1242 H (4-49) U/L Alkaline Phosphatase 153 H (38-126) U/L Troponin I (0.000-0.034) ng/mL Total Protein 5.6 L (6.3-8.2) g/dL Total Protein (PEP) (6.2-8.2) g/dL Albumin 2.7 L (3.5-5.0) g/dL Procalcitonin (0.02-0.09) ng/mL Microbiology - Last 24 Hours (Table) 03/26/20 13:01 Blood Culture - Preliminary Blood No Growth after 48 hours Assessment and Plan Plan: Patient's laboratory values continue to improve with decrease in leukocytosis and transaminitis trending down. He states his abdominal pain is also improving. Lactic acidosis has resolved. INR is still elevated at 4.0. At this point, his global hypoperfusion appears to be improving. With resolution of the lactic acidosis along with improvement of his abdominal pain, at this 0.3 days after admission, surgical intervention for ischemic bowel is more unlikely. Secondary to this, we will begin to advance the patient's diet and start him on a trial of clear liquid diet. I did inform the patient to inform nursing staff or physician immediately if he begins to have significant pain after intake. We'll continue to follow and make recommendations based on the patient's progress.
--- NOTE | 2020-03-29 11:32 | P.PN ---
Subjective Progress Note Date: 03/29/20 Principal diagnosis: Acute on chronic systolic heart failure, ischemic cardiomyopathy, cardiogenic shock This is a 70-year-old white male patient who was admitted to the hospital on 03/26/2020 when he presented with symptoms of vomiting, dry heaves, diffuse abdominal pain ongoing since November. Patient has extensive medical history including multiple episodes of myocardial infarction, CAD with stenting, ischemic cardiomyopathy, EF of 30-35%, ventricular tachycardia status post AICD placement, and patient had ICD discharge in November 2019, history of multiple ablations in the past. CT of the abdomen and pelvis showed moderate-sized bilateral pleural effusions, right more so than the left, small amount of ascites. His previous thoracentesis showed transudate of pleural effusion related to history of CHF. Patient is chronically short of breath on a regular basis, he does not feel significantly more short of breath than usual, he was placed on dobutamine infusion which was cut back yesterday to 2.5 mics per kilo per minute, this point in the morning and 20 ML per hour, he is still on 2 L of oxygen, lung sounds are diminished at the bases, no wheezing, no rhonchi. Denies any abdominal discomfort, his CT of the abdomen and pelvis was concerning for wall thickening of the colon particularly in the right colon the possibility of colitis, there was also evidence of extensive vascular disease, and there was a possibility of ischemic or infectious colitis. Gallbladder ultrasound showed mostly contracted gallbladder no gallstones or dilated ducts. Patient was considered a very high surgical risk when he was seen by surgery, and the recommendation was to treat the patient conservatively. His INR was also extremely elevated upon admission, currently trending down. His abdominal contents of nausea or vomiting in the last 24 hours, blood pressure at times on the lower side, with a systolic between 70 to low 100s, and diastolic in the 60s, however clinically patient is asymptomatic, is a bit hypothermic, with 96.6F core temperature, and patient has a bear hugger. His respirations are nonlabored, patient denies any chest pain, patient went into A. fib last night, but the rate is controlled. Dobutamine will be discontinued this morning, cardi ology is following. Patient got a dose of IV Lasix yesterday which seems to have increased his urine output, and improved his breathing. Today's chest x- ray shows some some worsening pleural effusions, atelectasis. Labs reviewed, with blood cell count is improving, down to 13.2, hemoglobin is 11.2, and is down to 4.0, sodium is 132, potassium is 4.2, chloride is 95, BUN is 56, and creatinine is 3.38, his liver enzymes have improved, namely AST is down to 2488, ALT is 1242, and alkaline phosphatase is relatively stable from yesterday but down from admission, down to 153 on today's labs, COVID 19 was negative, urinalysis showed no evidence of infection, cultures have shown no growth. he is in overall 1.3 L of negative fluid balance over last 24 hours. Objective - Vital Signs Vital signs: Vital Signs Temp 96.6 F L 03/29/20 08:00 Pulse 73 03/29/20 11:11 Resp 13 03/29/20 11:11 BP 88/62 03/29/20 10:00 Pulse Ox 96 03/29/20 10:00 Intake & Output 03/28/20 03/29/20 03/29/20 18:59 06:59 18:59 Intake Total 705.147 454.35 291.04 Output Total 698 1805 420 Balance 7.147 -1350.65 -128.96 Weight 74.7 kg Intake: IV 601.7 404.35 165.85 0.9 NaCl- 240 240 60 DOBUTamine DRIP 500 mg In 11.7 64.35 5.85 Dextrose/Water 1 250ml. bag @ 2.5 MCG/KG/MIN 5.85 mls/hr IV .Q24H [facility]ENT Rx#: [id number] Dextrose 5% in Water 1, 150 000 ml @ 75 mls/hr IV . [id number] [facility]ENT with Sodium Bicarb (1 Meq/ml) 150 ml Rx#:[id number] Zosyn 200 100 100 Intake, IV Titration 103.447 125.19 Amount DOBUTamine DRIP 500 mg In 103.447 125.19 Dextrose/Water 1 250ml. bag @ 2.5 MCG/KG/MIN 5.85 mls/hr IV .Q24H BRENT Rx#: [id number] Oral 50 Output: Urine 698 1805 420 Other: Voiding Method Indwelling Catheter Indwelling Catheter - Exam GENERAL EXAM: Alert, very pleasant, 70-year-old, on 2 L of oxygen and pulse ox 90% comfortable in no apparent distress. HEAD: Normocephalic/atraumatic. EYES: Normal reaction of pupils, equal size. Conjunctiva pink, sclera white. NOSE: Clear with pink turbinates. THROAT: No erythema or exudates. NECK: No masses, no JVD, no thyroid enlargement, no adenopathy. CHEST: No chest wall deformity. Symmetrical expansion. LUNGS: Equal air entry with no crackles, wheeze, rhonchi or dullness. CVS: Irregular rate and rhythm, normal S1 and S2, no gallops, no murmurs, no rubs ABDOMEN: Soft, nontender. No hepatosplenomegaly, normal bowel sounds, no guarding or rigidity. EXTREMITIES: No clubbing, no edema, no cyanosis, 2+ pulses and upper and lower extremities. MUSCULOSKELETAL: Muscle strength and tone normal. SPINE: No scoliosis or deformity SKIN: No rashes CENTRAL NERVOUS SYSTEM: Alert and oriented -3. No focal deficits, tone is normal in all 4 extremities. PSYCHIATRIC: Alert and oriented -3. Appropriate affect. Intact judgment and insight. - Labs CBC & Chem 7: 03/29/20 03:22 03/29/20 03:22 Labs: Abnormal Lab Results - Last 24 Hours (Table) 03/28/20 03/28/20 03/28/20 Range/Units 04:05 11:51 17:39 WBC (3.8-10.6) k/uL RBC (4.30-5.90) m/uL Hgb (13.0-17.5) gm/dL Hct (39.0-53.0) % RDW (11.5-15.5) % Neutrophils # (1.3-7.7) k/uL Lymphocytes # (1.0-4.8) k/uL PT (9.0-12.0) sec INR (<1.2) APTT (22.0-30.0) sec Sodium (137-145) mmol/L Chloride (98-107) mmol/L BUN (9-20) mg/dL Creatinine (0.66-1.25) mg/dL Glucose (74-99) mg/dL POC Glucose (mg/dL) 139 H (75-99) mg/dL Calcium (8.4-10.2) mg/dL Iron (65-175) ug/dL % Saturation (15.00-50.00) Total Bilirubin (0.2-1.3) mg/dL AST (17-59) U/L ALT (4-49) U/L Alkaline Phosphatase (38-126) U/L Troponin I 0.068 H* (0.000-0.034) ng/mL Total Protein (6.3-8.2) g/dL Total Protein (PEP) (6.2-8.2) g/dL Albumin (3.5-5.0) g/dL Procalcitonin 1.96 H (0.02-0.09) ng/mL 03/29/20 03/29/20 03/29/20 Range/Units 00:47 03:22 03:22 WBC 13.2 H (3.8-10.6) k/uL RBC 4.21 L (4.30-5.90) m/uL Hgb 11.2 L (13.0-17.5) gm/dL Hct 35.0 L (39.0-53.0) % RDW 17.6 H (11.5-15.5) % Neutrophils # 11.4 H (1.3-7.7) k/uL Lymphocytes # 0.8 L (1.0-4.8) k/uL PT (9.0-12.0) sec INR (<1.2) APTT (22.0-30.0) sec Sodium (137-145) mmol/L Chloride (98-107) mmol/L BUN (9-20) mg/dL Creatinine (0.66-1.25) mg/dL Glucose (74-99) mg/dL POC Glucose (mg/dL) 121 H (75-99) mg/dL Calcium (8.4-10.2) mg/dL Iron (65-175) ug/dL % Saturation (15.00-50.00) Total Bilirubin (0.2-1.3) mg/dL AST (17-59) U/L ALT (4-49) U/L Alkaline Phosphatase (38-126) U/L Troponin I (0.000-0.034) ng/mL Total Protein (6.3-8.2) g/dL Total Protein (PEP) 5.2 L (6.2-8.2) g/dL Albumin (3.5-5.0) g/dL Procalcitonin (0.02-0.09) ng/mL 03/29/20 03/29/20 03/29/20 Range/Units 03:22 03:22 06:00 WBC (3.8-10.6) k/uL RBC (4.30-5.90) m/uL Hgb (13.0-17.5) gm/dL Hct (39.0-53.0) % RDW (11.5-15.5) % Neutrophils # (1.3-7.7) k/uL Lymphocytes # (1.0-4.8) k/uL PT 38.4 H (9.0-12.0) sec INR 4.0 H (<1.2) APTT 49.1 H (22.0-30.0) sec Sodium 132 L (137-145) mmol/L Chloride 95 L (98-107) mmol/L BUN 56 H (9-20) mg/dL Creatinine 3.38 H (0.66-1.25) mg/dL Glucose 100 H (74-99) mg/dL POC Glucose (mg/dL) 112 H (75-99) mg/dL Calcium 6.8 L (8.4-10.2) mg/dL Iron 12 L (65-175) ug/dL % Saturation 4.53 L (15.00-50.00) Total Bilirubin 4.4 H (0.2-1.3) mg/dL AST 2488 H (17-59) U/L ALT 1242 H (4-49) U/L Alkaline Phosphatase 153 H (38-126) U/L Troponin I (0.000-0.034) ng/mL Total Protein 5.6 L (6.3-8.2) g/dL Total Protein (PEP) (6.2-8.2) g/dL Albumin 2.7 L (3.5-5.0) g/dL Procalcitonin (0.02-0.09) ng/mL Microbiology - Last 24 Hours (Table) 03/26/20 13:01 Blood Culture - Preliminary Blood No Growth after 48 hours Assessment and Plan Plan: Assessment: #1. Acute on chronic systolic heart failure, and the patient with ischemic cardiomyopathy and left ventricular dysfunction and ejection fraction of 30-35% #2. Cardiogenic shock #3. Chronic atrial fibrillation #4. Congestive hepatopathy, #5. Possible abdominal sepsis #6. Lactic acidosis related to hypoperfusion related to acute exacerbation of systolic CHF #7. Rule out mesenteric ischemia #8. Cardiorenal syndrome #9. Coumadin induced coagulopathy #10. History of coronary artery disease with previous stenting #11. Hyperlipidemia #12. History of hypertension #13. Prior history of myocardial infarction #14. Status post pacemaker insertion Plan: Discontinue dobutamine, continue current antibiotics, patient is afebrile, his pro-calcitonin level came back elevated which could probably be related to his renal failure, clinically patient denies any worsening dyspnea, he is in nega tive fluid balance, breathing easier, his INR is improving, no acute events overnight, no complaints of chest pain, liver enzymes are improving. We'll continue to monitor in the intensive care unit I performed a history & physical examination of the patient and discussed their management with my nurse practitioner, Nimco Drew. I reviewed the nurse practitioner's note and agree with the documented findings and plan of care. Lung sounds are positive for diminished breath sounds with bilateral crackles The findings and the impression was discussed with the patient. I attest to the documentation by the nurse practitioner. Time with Patient: Less than 30
[2020-03-29 11:47] LABS: Glucose,Whole Blood 100 mg/dL (75-99)
[2020-03-29 12:54] LABS: Hepatitis A Antibody IgM Non-Reactive (Non-Reactive); Hepatitis B Core IgM Non-Reactive (Non-Reactive); Hepatitis B Surface Antigen Non-Reactive (Non-Reactive); Hepatitis C IgG Antibody Non-Reactive (Non-Reactive)
--- NOTE | 2020-03-29 13:40 | P.PN ---
Subjective Progress Note Date: 03/29/20 Principal diagnosis: pulmonary edema, transaminitis, coagulopathy In follow-up today patient does not appear to be in as much distress since yesterday, he is not been retching this morning, he still doesn't feel very well. Generally weak. Generally depressed. Denies acute pain, back sore from laying on it. No known bleeding. Objective - Vital Signs Vital signs: Vital Signs Temp 97.2 F L 03/29/20 12:00 Pulse 77 03/29/20 12:00 Resp 14 03/29/20 12:00 BP 85/57 03/29/20 12:00 Pulse Ox 96 03/29/20 12:00 Intake & Output 03/28/20 03/29/20 03/29/20 18:59 06:59 18:59 Intake Total 705.147 454.35 351.04 Output Total 698 1805 870 Balance 7.147 -1350.65 -518.96 Weight 74.7 kg Intake: IV 601.7 404.35 225.85 0.9 NaCl- 240 240 120 DOBUTamine DRIP 500 mg In 11.7 64.35 5.85 Dextrose/Water 1 250ml. bag @ 2.5 MCG/KG/MIN 5.85 mls/hr IV .Q24H BRENT Rx#: [id number] Dextrose 5% in Water 1, 150 000 ml @ 75 mls/hr IV . [id number] BRENT with Sodium Bicarb (1 Meq/ml) 150 ml Rx#:[id number] Zosyn 200 100 100 Intake, IV Titration 103.447 125.19 Amount DOBUTamine DRIP 500 mg In 103.447 125.19 Dextrose/Water 1 250ml. bag @ 2.5 MCG/KG/MIN 5.85 mls/hr IV .Q24H BRENT Rx#: [id number] Oral 50 Output: Urine 698 1805 870 Other: Voiding Method Indwelling Catheter Indwelling Catheter - Constitutional General appearance: Present: average body habitus, cooperative, no acute distres s - EENT Eyes: Present: EOMI ENT: Present: hearing grossly normal - Respiratory Respiratory: bilateral: CTA - Cardiovascular Heart sounds: normal: S1, S2 Abnormal Heart Sounds: Absent: systolic murmur, diastolic murmur, rub, S3 Abebe p, S4 Gallop, click, other - Gastrointestinal General gastrointestinal: Present: normal bowel sounds, soft - Neurologic Neurologic: Present: CNII-XII intact - Musculoskeletal Musculoskeletal: Present: generalized weakness - Psychiatric Psychiatric Comment(s): depressed affect Psychiatric: Present: A&O x's 3, intact judgment & insight - Labs CBC & Chem 7: 03/29/20 03:22 03/29/20 03:22 Labs: Abnormal Lab Results - Last 24 Hours (Table) 03/28/20 03/28/20 03/28/20 Range/Units 04:05 11:51 17:39 WBC (3.8-10.6) k/uL RBC (4.30-5.90) m/uL Hgb (13.0-17.5) gm/dL Hct (39.0-53.0) % RDW (11.5-15.5) % Neutrophils # (1.3-7.7) k/uL Lymphocytes # (1.0-4.8) k/uL PT (9.0-12.0) sec INR (<1.2) APTT (22.0-30.0) sec Sodium (137-145) mmol/L Chloride (98-107) mmol/L BUN (9-20) mg/dL Creatinine (0.66-1.25) mg/dL Glucose (74-99) mg/dL POC Glucose (mg/dL) 139 H (75-99) mg/dL Calcium (8.4-10.2) mg/dL Iron (65-175) ug/dL % Saturation (15.00-50.00) Total Bilirubin (0.2-1.3) mg/dL AST (17-59) U/L ALT (4-49) U/L Alkaline Phosphatase (38-126) U/L Troponin I 0.068 H* (0.000-0.034) ng/mL Total Protein (6.3-8.2) g/dL Total Protein (PEP) (6.2-8.2) g/dL Albumin (3.5-5.0) g/dL Procalcitonin 1.96 H (0.02-0.09) ng/mL 03/29/20 03/29/20 03/29/20 Range/Units 00:47 03:22 03:22 WBC 13.2 H (3.8-10.6) k/uL RBC 4.21 L (4.30-5.90) m/uL Hgb 11.2 L (13.0-17.5) gm/dL Hct 35.0 L (39.0-53.0) % RDW 17.6 H (11.5-15.5) % Neutrophils # 11.4 H (1.3-7.7) k/uL Lymphocytes # 0.8 L (1.0-4.8) k/uL PT (9.0-12.0) sec INR (<1.2) APTT (22.0-30.0) sec Sodium (137-145) mmol/L Chloride (98-107) mmol/L BUN (9-20) mg/dL Creatinine (0.66-1.25) mg/dL Glucose (74-99) mg/dL POC Glucose (mg/dL) 121 H (75-99) mg/dL Calcium (8.4-10.2) mg/dL Iron (65-175) ug/dL % Saturation (15.00-50.00) Total Bilirubin (0.2-1.3) mg/dL AST (17-59) U/L ALT (4-49) U/L Alkaline Phosphatase (38-126) U/L Troponin I (0.000-0.034) ng/mL Total Protein (6.3-8.2) g/dL Total Protein (PEP) 5.2 L (6.2-8.2) g/dL Albumin (3.5-5.0) g/dL Procalcitonin (0.02-0.09) ng/mL 03/29/20 03/29/20 03/29/20 Range/Units 03:22 03:22 06:00 WBC (3.8-10.6) k/uL RBC (4.30-5.90) m/uL Hgb (13.0-17.5) gm/dL Hct (39.0-53.0) % RDW (11.5-15.5) % Neutrophils # (1.3-7.7) k/uL Lymphocytes # (1.0-4.8) k/uL PT 38.4 H (9.0-12.0) sec INR 4.0 H (<1.2) APTT 49.1 H (22.0-30.0) sec Sodium 132 L (137-145) mmol/L Chloride 95 L (98-107) mmol/L BUN 56 H (9-20) mg/dL Creatinine 3.38 H (0.66-1.25) mg/dL Glucose 100 H (74-99) mg/dL POC Glucose (mg/dL) 112 H (75-99) mg/dL Calcium 6.8 L (8.4-10.2) mg/dL Iron 12 L (65-175) ug/dL % Saturation 4.53 L (15.00-50.00) Total Bilirubin 4.4 H (0.2-1.3) mg/dL AST 2488 H (17-59) U/L ALT 1242 H (4-49) U/L Alkaline Phosphatase 153 H (38-126) U/L Troponin I (0.000-0.034) ng/mL Total Protein 5.6 L (6.3-8.2) g/dL Total Protein (PEP) (6.2-8.2) g/dL Albumin 2.7 L (3.5-5.0) g/dL Procalcitonin (0.02-0.09) ng/mL 03/29/20 Range/Units 11:46 WBC (3.8-10.6) k/uL RBC (4.30-5.90) m/uL Hgb (13.0-17.5) gm/dL Hct (39.0-53.0) % RDW (11.5-15.5) % Neutrophils # (1.3-7.7) k/uL Lymphocytes # (1.0-4.8) k/uL PT (9.0-12.0) sec INR (<1.2) APTT (22.0-30.0) sec Sodium (137-145) mmol/L Chloride (98-107) mmol/L BUN (9-20) mg/dL Creatinine (0.66-1.25) mg/dL Glucose (74-99) mg/dL POC Glucose (mg/dL) 100 H (75-99) mg/dL Calcium (8.4-10.2) mg/dL Iron (65-175) ug/dL % Saturation (15.00-50.00) Total Bilirubin (0.2-1.3) mg/dL AST (17-59) U/L ALT (4-49) U/L Alkaline Phosphatase (38-126) U/L Troponin I (0.000-0.034) ng/mL Total Protein (6.3-8.2) g/dL Total Protein (PEP) (6.2-8.2) g/dL Albumin (3.5-5.0) g/dL Procalcitonin (0.02-0.09) ng/mL Microbiology - Last 24 Hours (Table) 03/26/20 13:01 Blood Culture - Preliminary Blood No Growth after 48 hours - Imaging and Cardiology Chest x-ray: report reviewed Assessment and Plan (1) Coagulopathy Narrative/Plan: 2/2 liver dysfunction and being on anticoagulation. Suspect shock to the organs when pt had severe hypotension. Pt has moderate to severe cardiovascular disease. Cont coags and fibrinogen daily Vit K daily for total of 3 doses-will evaluate INR daily Hgb monitoring-11.2 today, plt 215,000. No current suspicions for DOC. We will cont to monitor Current Visit: Yes Status: Acute Priority: High Code(s): D68.9 - COAGULATION DEFECT, UNSPECIFIED SNOMED Code(s): 81273983 (2) Transaminitis Narrative/Plan: LFTs improving, bili slightly worse. ICU care, GI following Current Visit: Yes Status: Acute Priority: High Code(s): R74.01 - ELEVATION OF LEVELS OF LIVER TRANSAMINASE LEVELS SNOMED Code(s): 393789451
[2020-03-29 13:55] LABS: Ceruloplasmin 31.1 mg/dL (20.0-60.0)
--- NOTE | 2020-03-29 15:51 | PN ---
PROGRESS NOTE Patient is seen for followup for acute kidney injury. Patient's urine output has improved about 50-100 mL an hour. He did receive a dose of IV Lasix yesterday. Overall, he is comfortable. PHYSICAL EXAMINATION: Blood pressure is on the lower side, systolic around 95-92 mmHg. Occasional dipping into the 70s. On examination, breath sounds are heard bilaterally. Abdomen is soft, nontender. Heart sounds are heard. Examination of lower extremities shows trace edema bilaterally. 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 LABS: Labs show hemoglobin 11.2, sodium 132, potassium 4.2, chloride 95, BUN 56 serum creatinine 3.38 mg/dL. AST, ALT are decreasing with AST 2488 and ALT 1242. ASSESSMENT: 1. Acute kidney injury, acute tubular necrosis, currently nonoliguric. Etiology is ischemic from hypotension hypoperfusion and toxic from contrast nephropathy. Urine output has improved and since renal function has not worsened significantly, we will continue to hold off on dialysis and repeat labs in a.m. Avoid any nephrotoxic agents. Continue with the midodrine as blood pressure remains low. The patient is off of dobutamine currently. 2. Mild volume overload, appears to have improved from yesterday. Continue to monitor for now. 3. Hyperkalemia associated with acute kidney injury, now improved. 4. Cardiomyopathy, ejection fraction 35%, status post IV dobutamine. 5. Shock with possible underlying infection. Cultures negative thus far. Possible cardiogenic shock. However, patient was on dobutamine which is now discontinued. He is maintained on empiric antibiotics. 6. Moderate to severe tricuspid regurgitation. 7. Lactic acidosis associated with hypotension hypoperfusion, now improved. 8. Atrial fibrillation with controlled ventricular response. PLAN: No indication for dialysis. Continue to monitor renal function. Continue to avoid nephrotoxic medications. Continue with the midodrine. MMODL / IJN: [id number] /
--- NOTE | 2020-03-29 15:51 | P.PN ---
Subjective Progress Note Date: 03/29/20 Principal diagnosis: Elevated LFTs and jaundice, abdominal pain Was seen and examined lying in bed in the ICU. Patient denies any abdominal pain unless pressing on it he states is improved from admission. He denies any nausea or vomiting. He has been afebrile, actually temperature was 96.6 patient has had Bear hugger on. Had increased urine output today. Liver enzymes con tinue to trend down. Total bilirubin 4.4, alkaline phosphatase 153, AST 2488, ALT 1242, INR 4.0. Objective - Vital Signs Vital signs: Vital Signs Temp 96.6 F L 03/29/20 08:00 Pulse 93 03/29/20 10:00 Resp 11 L 03/29/20 10:00 BP 88/62 03/29/20 10:00 Pulse Ox 96 03/29/20 10:00 Intake & Output 03/28/20 03/29/20 03/29/20 18:59 06:59 18:59 Intake Total 705.147 454.35 291.04 Output Total 698 1805 420 Balance 7.147 -1350.65 -128.96 Weight 74.7 kg Intake: IV 601.7 404.35 165.85 0.9 NaCl- 240 240 60 DOBUTamine DRIP 500 mg In 11.7 64.35 5.85 Dextrose/Water 1 250ml. bag @ 2.5 MCG/KG/MIN 5.85 mls/hr IV .Q24H [facility] Rx#: [id number] Dextrose 5% in Water 1, 150 000 ml @ 75 mls/hr IV . [id number] [facility]ENT with Sodium Bicarb (1 Meq/ml) 150 ml Rx#:[id number] Zosyn 200 100 100 Intake, IV Titration 103.447 125.19 Amount DOBUTamine DRIP 500 mg In 103.447 125.19 Dextrose/Water 1 250ml. bag @ 2.5 MCG/KG/MIN 5.85 mls/hr IV .Q24H [facility]ENT Rx#: [id number] Oral 50 Output: Urine 698 1805 420 Other: Voiding Method Indwelling Catheter Indwelling Catheter - Exam General appearance: The patient is alert, oriented, in no acute distress. HET: Head is normocephalic and atraumatic. Conjunctiva pink. Sclera anicteric. Neck: Supple without lymphadenopathy. Abdomen: Soft, periumbilical tenderness, nondistended with normal bowel sounds. No guarding or rigidity. Extremities: Normal skin color and turgor. No pedal edema Neurological: No focal deficits. Alert and oriented 3. - Labs CBC & Chem 7: 03/29/20 03:22 03/29/20 03:22 Labs: Abnormal Lab Results - Last 24 Hours (Table) 03/28/20 03/28/20 03/28/20 Range/Units 04:05 11:51 17:39 WBC (3.8-10.6) k/uL RBC (4.30-5.90) m/uL Hgb (13.0-17.5) gm/dL Hct (39.0-53.0) % RDW (11.5-15.5) % Neutrophils # (1.3-7.7) k/uL Lymphocytes # (1.0-4.8) k/uL PT (9.0-12.0) sec INR (<1.2) APTT (22.0-30.0) sec Sodium (137-145) mmol/L Chloride (98-107) mmol/L BUN (9-20) mg/dL Creatinine (0.66-1.25) mg/dL Glucose (74-99) mg/dL POC Glucose (mg/dL) 139 H (75-99) mg/dL Calcium (8.4-10.2) mg/dL Iron (65-175) ug/dL % Saturation (15.00-50.00) Total Bilirubin (0.2-1.3) mg/dL AST (17-59) U/L ALT (4-49) U/L Alkaline Phosphatase (38-126) U/L Troponin I 0.068 H* (0.000-0.034) ng/mL Total Protein (6.3-8.2) g/dL Total Protein (PEP) (6.2-8.2) g/dL Albumin (3.5-5.0) g/dL Procalcitonin 1.96 H (0.02-0.09) ng/mL 03/29/20 03/29/20 03/29/20 Range/Units 00:47 03:22 03:22 WBC 13.2 H (3.8-10.6) k/uL RBC 4.21 L (4.30-5.90) m/uL Hgb 11.2 L (13.0-17.5) gm/dL Hct 35.0 L (39.0-53.0) % RDW 17.6 H (11.5-15.5) % Neutrophils # 11.4 H (1.3-7.7) k/uL Lymphocytes # 0.8 L (1.0-4.8) k/uL PT (9.0-12.0) sec INR (<1.2) APTT (22.0-30.0) sec Sodium (137-145) mmol/L Chloride (98-107) mmol/L BUN (9-20) mg/dL Creatinine (0.66-1.25) mg/dL Glucose (74-99) mg/dL POC Glucose (mg/dL) 121 H (75-99) mg/dL Calcium (8.4-10.2) mg/dL Iron (65-175) ug/dL % Saturation (15.00-50.00) Total Bilirubin (0.2-1.3) mg/dL AST (17-59) U/L ALT (4-49) U/L Alkaline Phosphatase (38-126) U/L Troponin I (0.000-0.034) ng/mL Total Protein (6.3-8.2) g/dL Total Protein (PEP) 5.2 L (6.2-8.2) g/dL Albumin (3.5-5.0) g/dL Procalcitonin (0.02-0.09) ng/mL 03/29/20 03/29/20 03/29/20 Range/Units 03:22 03:22 06:00 WBC (3.8-10.6) k/uL RBC (4.30-5.90) m/uL Hgb (13.0-17.5) gm/dL Hct (39.0-53.0) % RDW (11.5-15.5) % Neutrophils # (1.3-7.7) k/uL Lymphocytes # (1.0-4.8) k/uL PT 38.4 H (9.0-12.0) sec INR 4.0 H (<1.2) APTT 49.1 H (22.0-30.0) sec Sodium 132 L (137-145) mmol/L Chloride 95 L (98-107) mmol/L BUN 56 H (9-20) mg/dL Creatinine 3.38 H (0.66-1.25) mg/dL Glucose 100 H (74-99) mg/dL POC Glucose (mg/dL) 112 H (75-99) mg/dL Calcium 6.8 L (8.4-10.2) mg/dL Iron 12 L (65-175) ug/dL % Saturation 4.53 L (15.00-50.00) Total Bilirubin 4.4 H (0.2-1.3) mg/dL AST 2488 H (17-59) U/L ALT 1242 H (4-49) U/L Alkaline Phosphatase 153 H (38-126) U/L Troponin I (0.000-0.034) ng/mL Total Protein 5.6 L (6.3-8.2) g/dL Total Protein (PEP) (6.2-8.2) g/dL Albumin 2.7 L (3.5-5.0) g/dL Procalcitonin (0.02-0.09) ng/mL Microbiology - Last 24 Hours (Table) 03/26/20 13:01 Blood Culture - Preliminary Blood No Growth after 48 hours Assessment and Plan (1) Transaminitis Narrative/Plan: This is s a patient who presented to the hospital with worsening shortness of breath diffuse abdominal pain associated with nausea, vomiting and not feeling well since November of last year. He's had a weight loss of approximately 20 pounds. At the time of admission to the hospital he was noted to have leukocytosis and increased serum transaminases as well as bilirubin up to 3.8 area computed tomography scan and ultrasound showed no evidence of gallstones or biliary ductal dilation. He has a long-standing history of ischemic cardiomyopathy with an ejection fraction of 30% and status post AICD implantation. He was also noted to have lactic acidosis at presentation. The clinical picture is more consistent with a global hypoperfusion causing ischemic hepatitis impossibility of small bowel ischemia cannot be excluded. His BUN and creatinine were also elevated consistent with hypoperfusion state. The patient has been started on Zosyn. Possible cirrhosis of the liver based on imaging studies, the CAT scan showed nodular appearing liver which appears to be decompensated with the current clinical situation. Daily LFTs, LFTs continue to trend down. Current Visit: Yes Status: Acute Priority: High Code(s): R74.01 - ELEVATION OF LEVELS OF LIVER TRANSAMINASE LEVELS SNOMED Code(s): 311442029 (2) Abdominal pain Current Visit: Yes Status: Acute Code(s): R10.9 - UNSPECIFIED ABDOMINAL PAIN SNOMED Code(s): 80681195 (3) Ascites Narrative/Plan: Small amount of ascites noted on CT of the abdomen Current Visit: Yes Status: Acute Code(s): R18.8 - OTHER ASCITES SNOMED Code(s): 669923027 (4) Afib Narrative/Plan: Patient has a history of atrial fibrillation and was on several toe, it is currently on hold. INR is significantly elevated Current Visit: No Status: Acute Code(s): I48.91 - UNSPECIFIED ATRIAL FIBRILLATION SNOMED Code(s): 48295909 Plan: 1. Continue supportive and symptomatic care 2. Continue with recommendations from surgery, cardiology, and nephrology 3. Diet per surgery recommendations 4. Agree with vitamin K to reverse coagulopathy 5. Continue with broad-spectrum antibiotics 6. Avoid hepatotoxic medications, including statins for now. 7. Daily CBC, INR, CMP 8. We will follow with you closely Dr. Haque I agree with the dictator's note, documented as a scribe by Yvrose Duke.
[2020-03-29 16:24] LABS: Glucose,Whole Blood 198 mg/dL (75-99)
--- NOTE | 2020-03-29 19:36 | P.PN ---
Progress Note - Text Progress Note Date: 03/29/20 Chief Complaint: Abdominal pain History of presenting complaint: This is a pleasant 69-year-old patient of Dr. Cheatham. Chronic stable medical conditions include coronary artery disease, hyperlipidemia, multiple MIs in the past, coronary stent, peptic ulcer disease, ischemic cardiomyopathy, previous V. tach ablation, atrial fibrillation,. 2 weeks ago patient was admitted with CHF exacerbation. Cardiac catheterization [March 14] showed chronically occluded RCA with extensive [id number] collaterals. Also some focal obstructive lesion in the circumflex. Creatinine then was 1.16. Patient now presents with having nausea vomiting "a few days. Also having dif fuse abdominal pain. Appetite is rather poor. Has not had a bowel movement for 5 days. Shortness of breath. Denies any fever and chills. Occasional cough. Some edema. Has orthopnea. Admitted with suspected ischemic colitis, causing resultant hypotension, severe lactic acidosis ischemic hepatitis, abnormal regulation profile with a contribution from xarelto, pulmonary edema with acute CHF exacerbation. Patient was given vitamin K put on IV dobutamine, bronchodilators will be ICU. Started on IV Zosyn. [id number] was discontinued. Taking good urine output. Started on clear liquids. Received more vitamin K.feels a bit betterr. Decreased abdominal pain. Review of systems: Was done for constitutional, cardiovascular, GI, pulmonary. relevant finding as above Active Medications Albuterol/Ipratropium (Ipratropium-Albuterol 3 Ml Neb) 3 ml INHALATION RT-QID [facility] Last Admin: 03/29/20 19:07 Dose: 3 ml Documented by: Benzocaine/Menthol (Benzocaine/Menthol Lozeng 1 Each Lozenge) 1 each MUCOUS MEM Q4HR PRN PRN Reason: Sore Throat Last Admin: 03/28/20 22:36 Dose: 1 each Documented by: Hydromorphone HCl (Hydromorphone 0.5 Mg/0.5 Ml Syringe) 0.5 mg IVP Q4HR PRN PRN Reason: Pain Last Admin: 03/26/20 14:42 Dose: 0.5 mg Documented by: Piperacillin Sod/Tazobactam (Sod 3.375 gm/ Sodium Chloride) 100 mls @ 200 mls/hr IVPB Q8HR [facility] Last Admin: 03/29/20 17:09 Dose: 200 mls/hr Documented by: Phytonadione 5 mg/ Sodium (Chloride) 50.5 mls @ 100 mls/hr IVPB DAILY [facility] Stop: 03/31/20 09:31 Last Admin: 03/29/20 10:34 Dose: 100 mls/hr Documented by: Midodrine (Midodrine 5 Mg Tab) 10 mg PO AC-TID [facility] Last Admin: 03/29/20 17:09 Dose: 10 mg Documented by: Pantoprazole Sodium (Pantoprazole 40 Mg Tablet) 40 mg PO BID [facility] Last Admin: 03/29/20 08:57 Dose: 40 mg Documented by: Prochlorperazine Edisylate (Prochlorperazine Inj 10 Mg/2 Ml Vial) 10 mg IVP Q6H PRN PRN Reason: Nausea And Vomiting Last Admin: 03/28/20 22:29 Dose: 10 mg Documented by: Past medical history to include: Coronary artery disease with stent, multiple MIs, hyperlipidemia, peptic ulcer disease, CHF EF 35-40%, ventricular tachycardia ablation, AICD placement, chronic atrial fibrillation, Social history: Lives alone. Smoking a pack a day closed to 59 years, takes about 6 pack a week. 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 Conjunctiva normal. HEENT: External appearance of nose and ears normal, oral cavity grossly normal. NECK: JVD possibly raised; masses not palpable. HEART: Irregular heart sounds; edema present. LUNGS: Respiratory rate increased, decreased breath sounds. ABDOMEN: Soft, mild tenderness, no guarding rigidity, liver spleen not palpable, no masses palpable. PSYCH: Alert and oriented x3; mood and affect tired appearing INVESTIGATIONS, reviewed in the clinical context: Generally 12: White count 13.2 hemoglobin 11.2 platelets 215 INR 4.0 PTT 49.1 potassium 4.2 bun 56 creatinine 3.38AST 2488 ALT 1242 alpha-1 antitrypsin normal at 181 70+ been normal at 31.1 tumor marker AFP test 2.5 Acute hepatitis panel including hepatitis A IgM antibody, hepatitis B surface antigen, hepatitis B core IgM antibody, hepatitis C IgG antibody all nonreactive. In a screen negative March 28: White count 19.7 hemoglobin 10.7 platelets 254 ProTime 89.3 INR 9.1 PTT 55.2 sodium 131 potassium 5.1 bun 47 creatinine 3.37 calcium 6.3 bilirubin 53.6 AST 07/22/2006 ALT 1695 troponin I 0.086, 0.068 pro-calcitonin 1.96 White count 29.2 hemoglobin 12.2 platelets 327 ProTime greater than 10 Potassium 6 bicarbonate 17 bun 29 creatinine 2.58 total bilirubin 3.8 AST 7392 ALT 1842 Admission testing: White count 25.4 hemoglobin 13.6 platelets 384 Sodium 135 potassium 5.7 creatinine 1.61 lactic 10.4 total bilirubin 3.2 AST 1472 ALT 537 Coronavirus-P/Cr-not detected Computed tomography scan of the abdomen pelvis-moderate size bilateral pleural effusion and compression atelectasis, Harpreet [facility] of the colon the right colon contracted gallbladder Ultrasound-contracted gallbladder EKG tracing personally reviewed by me-atrial fibrillation rate of 91 Chest x-ray film-pleural effusion atelectasis Previous testing: Hemoglobin 11.6 on March 14 Creatinine 1.16 on March 14 Assessment: -acute ischemic colitis given that the patient has got significant vascular disease, infective component cannot be ruled out-slow to respond -Acute ischemic hepatitis, severe from CHF and hypotension-slow to respond -Abnormal coagulation profile with a combination of patient poor oral intake and also being on an xarelto and also vitamin K deficiency-getting vitamin K -AICD -Coronary artery disease with prior history of stents -Acute on chronic congestive heart failure exacerbation from systolic dysfunction EF 30-35%- -Acute hypoxic respiratory failure from pulmonary edema on 2 L of nasal cannula- improving slowly -Moderate tricuspid regurgitation -Hyperlipidemia -Persistent atrial fibrillation/flutter-rate controlled -Chronic nicotine dependence patient active cigarette smoker -Acute kidney injury likely ATN from cardiorenal syndrome, the possible contribution from contrast-induced nephropathy from cardiac catheterization and IV contrast with computed tomography scan-worsening -Bilateral pleural effusion from CHF with a prior history of thoracentesis -Metabolic acidosis multifactorial -Hyperkalemia from renal failure-improved -Troponin leak from acute kidney injury and hemodynamic instability Plan: dobutamine discontinued. Patient on DuoNeb, midodrine, vitamin K, IV Zosyn.started on clear liquid. Add saline cautiously at 50 mL an hour.
[2020-03-29] MEDS ORDERED: SODIUM CHLORIDE 0.9% 1,000 ML IV SCH (19:45)
[2020-03-30 04:40] LABS: Albumin 2.6 g/dL (3.5-5.0); Calcium 7.1 mg/dL (8.4-10.2); Potassium 3.6 mmol/L (3.5-5.1); Total Bilirubin 4.6 mg/dL (0.2-1.3); Total Protein 5.7 g/dL (6.3-8.2)
[2020-03-30 04:50] LABS: INR 2.3 (<1.2); Prothrombin Time 22.8 sec (9.0-12.0)
[2020-03-30 04:52] LABS: Anisocytosis Slight; HCT 35.5 % (39.0-53.0); HGB 11.2 gm/dL (13.0-17.5); Hypochromasia Moderate; MCH 26.3 pg (25.0-35.0); MCHC 31.6 g/dL (31.0-37.0); MCV 83.2 fL (80.0-100.0); Mean Platelet Volume 9.9; Platelet Count 196 k/uL (150-450); Poikilocytosis Slight; RBC 4.26 m/uL (4.30-5.90); RDW 17.7 % (11.5-15.5); WBC 11.5 k/uL (3.8-10.6)
[2020-03-30 05:32] LABS: Lymphocytes # (M) 1.04 k/uL (1.0-4.8); Monocytes # (M) 1.38 k/uL (0-1.0); Neutrophils % (M) 80 %; Nucleated Red Blood Cells 0 /100 WBC (0-0); Total Cells Counted 200
[2020-03-30 05:33] LABS: Target Cells Present
[2020-03-30 05:34] LABS: Crenated RBC Present; RBC Fragments Present
[2020-03-30] MEDS: MIDODRINE 5 MG TAB PO SCH ×3 (08:36→17:26)
[2020-03-30] MEDS: PANTOPRAZOLE 40 MG TABLET PO SCH ×2 (08:37→20:51)
[2020-03-30] MEDS: PHYTONADIONE 5 MG in SODIUM CHLORIDE 0.9% 50 ML IVPB SCH (08:37)
[2020-03-30] MEDS: PIPERACILLIN-TAZOBACTAM 3.375 GM in SODIUM CHLORIDE 0.9% 100 ML IVPB SCH ×2 (08:37→17:26)
[2020-03-30] MEDS: IPRATROPIUM-ALBUTEROL 3 ML NEB INHALATION SCH ×4 (08:44→19:47)
--- NOTE | 2020-03-30 09:05 | XR ---
EXAMINATION TYPE: XR chest 1V portable DATE OF EXAM: 03/30/2020 COMPARISON: 03/29/2020 HISTORY: Shortness of breath TECHNIQUE: Single frontal view of the chest is obtained. FINDINGS: Diffuse interstitial pattern with bilateral consolidation and pleural effusion. There card iac device noted with the cardiac leads seen stable from prior exam. Biapical pleural thickening. Hea rt size normal. Hypertrophic and degenerative change of the spine. IMPRESSION: 1. Correlate for CHF versus diffuse pneumonia. Findings stable.
--- NOTE | 2020-03-30 09:30 | P.PN ---
Subjective Progress Note Date: 03/30/20 Principal diagnosis: Acute on chronic systolic heart failure, ischemic cardiomyopathy, cardiogenic shock This is a 70-year-old white male patient who was admitted to the hospital on 03/26/2020 when he presented with symptoms of vomiting, dry heaves, diffuse abdominal pain ongoing since November. Patient has extensive medical history including multiple episodes of myocardial infarction, CAD with stenting, ischemic cardiomyopathy, EF of 30-35%, ventricular tachycardia status post AICD placement, and patient had ICD discharge in November 2019, history of multiple ablations in the past. CT of the abdomen and pelvis showed moderate-sized bilateral pleural effusions, right more so than the left, small amount of ascites. His previous thoracentesis showed transudate of pleural effusion related to history of CHF. Patient is chronically short of breath on a regular basis, he does not feel significantly more short of breath than usual, he was placed on dobutamine infusion which was cut back yesterday to 2.5 mics per kilo per minute, this point in the morning and 20 ML per hour, he is still on 2 L of oxygen, lung sounds are diminished at the bases, no wheezing, no rhonchi. Denies any abdominal discomfort, his CT of the abdomen and pelvis was concerning for wall thickening of the colon particularly in the right colon the possibility of colitis, there was also evidence of extensive vascular disease, and there was a possibility of ischemic or infectious colitis. Gallbladder ultrasound showed mostly contracted gallbladder no gallstones or dilated ducts. Patient was considered a very high surgical risk when he was seen by surgery, and the recommendation was to treat the patient conservatively. His INR was also extremely elevated upon admission, currently trending down. His abdominal contents of nausea or vomiting in the last 24 hours, blood pressure at times on the lower side, with a systolic between 70 to low 100s, and diastolic in the 60s, however clinically patient is asymptomatic, is a bit hypothermic, with 96.6F core temperature, and patient has a bear hugger. His respirations are nonlabored, patient denies any chest pain, patient went into A. fib last night, but the rate is controlled. Dobutamine will be discontinued this morning, cardi ology is following. Patient got a dose of IV Lasix yesterday which seems to have increased his urine output, and improved his breathing. Today's chest x- ray shows some some worsening pleural effusions, atelectasis. Labs reviewed, with blood cell count is improving, down to 13.2, hemoglobin is 11.2, and is down to 4.0, sodium is 132, potassium is 4.2, chloride is 95, BUN is 56, and creatinine is 3.38, his liver enzymes have improved, namely AST is down to 2488, ALT is 1242, and alkaline phosphatase is relatively stable from yesterday but down from admission, down to 153 on today's labs, COVID 19 was negative, urinalysis showed no evidence of infection, cultures have shown no growth. he is in overall 1.3 L of negative fluid balance over last 24 hours. On 03/30/2020 patient seen in follow-up in the intensive care unit, awake and alert, resting comfortably in bed, he is oriented 3, appears to be in acute distress, is in sinus mechanism with a controlled rate, he is on 2 L of oxygen, with a pulse ox of 95%, no fever no chills, at times he has had some low systolic blood pressure readings with systolic in the 70s, clinically asymptomatic, currently blood pressure is 90/58, debridement drip was discontinued, No arrhythmias, no complaints of chest pain, no worsening dyspnea, lung sounds are diminished at the bases with some limited crackles. Today's chest x-ray shows diffuse interstitial pattern, bilateral consolidation and pleural effusions. Patient remains on Zosyn for an antibiotic coverage, IV fluids with 0.9, secondary to 50 ML per hour. Today's labs have been reviewed, with blood cell count continues to improve, down to 11.5 on today's labs, hemoglobin is 11.2, INR is 2.3, and hematology is following, patient received vitamin K yesterday for INR of 4.0., Renal profile continues to improve, BUN is down to 42, creatinine is 2.47, liver enzymes are improving patient is tolerating oral intake, no abdominal discomfort Objective - Vital Signs Vital signs: Vital Signs Temp 97.9 F 03/30/20 08:00 Pulse 88 03/30/20 08:58 Resp 21 03/30/20 08:00 BP 90/58 03/30/20 08:00 Pulse Ox 95 03/30/20 08:00 Intake & Output 03/29/20 03/30/20 03/30/20 18:59 06:59 18:59 Intake Total 571.04 1040 100 Output Total 1595 965 215 Balance -1023.96 75 -115 Weight 76.5 kg Intake: IV 445.85 640 100 0.9 NaCl- 240 540 100 DOBUTamine DRIP 500 mg In 5.85 Dextrose/Water 1 250ml. bag @ 2.5 MCG/KG/MIN 5.85 mls/hr IV .Q24H [facility] Rx#: [id number] Zosyn 200 100 Intake, IV Titration 125.19 Amount DOBUTamine DRIP 500 mg In 125.19 Dextrose/Water 1 250ml. bag @ 2.5 MCG/KG/MIN 5.85 mls/hr IV .Q24H [facility] Rx#: [id number] Oral 400 Output: Urine 1595 965 215 Other: Voiding Method Indwelling Catheter Indwelling Catheter Indwelling Catheter - Exam GENERAL EXAM: Alert, very pleasant, 70-year-old, on 2 L of oxygen and pulse ox 95% comfortable in no apparent distress. HEAD: Normocephalic/atraumatic. EYES: Normal reaction of pupils, equal size. Conjunctiva pink, sclera white. NOSE: Clear with pink turbinates. THROAT: No erythema or exudates. NECK: No masses, no JVD, no thyroid enlargement, no adenopathy. CHEST: No chest wall deformity. Symmetrical expansion. LUNGS: Equal air entry with no crackles, wheeze, rhonchi or dullness. CVS: Irregular rate and rhythm, normal S1 and S2, no gallops, no murmurs, no rubs ABDOMEN: Soft, nontender. No hepatosplenomegaly, normal bowel sounds, no guarding or rigidity. EXTREMITIES: No clubbing, no edema, no cyanosis, 2+ pulses and upper and lower extremities. MUSCULOSKELETAL: Muscle strength and tone normal. SPINE: No scoliosis or deformity SKIN: No rashes CENTRAL NERVOUS SYSTEM: Alert and oriented -3. No focal deficits, tone is normal in all 4 extremities. PSYCHIATRIC: Alert and oriented -3. Appropriate affect. Intact judgment and insight. - Labs CBC & Chem 7: 03/30/20 03:08 03/30/20 03:08 Labs: Abnormal Lab Results - Last 24 Hours (Table) 03/29/20 03/29/20 03/29/20 Range/Units 03:22 03:22 11:46 WBC (3.8-10.6) k/uL RBC (4.30-5.90) m/uL Hgb (13.0-17.5) gm/dL Hct (39.0-53.0) % RDW (11.5-15.5) % Neutrophils # (Manual) (1.3-7.7) k/uL Monocytes # (Manual) (0-1.0) k/uL PT (9.0-12.0) sec INR (<1.2) APTT (22.0-30.0) sec Sodium (137-145) mmol/L Chloride (98-107) mmol/L BUN (9-20) mg/dL Creatinine (0.66-1.25) mg/dL Glucose (74-99) mg/dL POC Glucose (mg/dL) 100 H (75-99) mg/dL Calcium (8.4-10.2) mg/dL Iron 12 L (65-175) ug/dL % Saturation 4.53 L (15.00-50.00) Total Bilirubin (0.2-1.3) mg/dL AST (17-59) U/L ALT (4-49) U/L Alkaline Phosphatase (38-126) U/L Total Protein (6.3-8.2) g/dL Total Protein (PEP) 5.2 L (6.2-8.2) g/dL Albumin (3.5-5.0) g/dL 03/29/20 03/30/20 03/30/20 Range/Units 16:22 03:08 03:08 WBC 11.5 H (3.8-10.6) k/uL RBC 4.26 L (4.30-5.90) m/uL Hgb 11.2 L (13.0-17.5) gm/dL Hct 35.5 L (39.0-53.0) % RDW 17.7 H (11.5-15.5) % Neutrophils # (Manual) 9.20 H (1.3-7.7) k/uL Monocytes # (Manual) 1.38 H (0-1.0) k/uL PT 22.8 H (9.0-12.0) sec INR 2.3 H (<1.2) APTT 45.0 H (22.0-30.0) sec Sodium (137-145) mmol/L Chloride (98-107) mmol/L BUN (9-20) mg/dL Creatinine (0.66-1.25) mg/dL Glucose (74-99) mg/dL POC Glucose (mg/dL) 198 H (75-99) mg/dL Calcium (8.4-10.2) mg/dL Iron (65-175) ug/dL % Saturation (15.00-50.00) Total Bilirubin (0.2-1.3) mg/dL AST (17-59) U/L ALT (4-49) U/L Alkaline Phosphatase (38-126) U/L Total Protein (6.3-8.2) g/dL Total Protein (PEP) (6.2-8.2) g/dL Albumin (3.5-5.0) g/dL 03/30/20 Range/Units 03:08 WBC (3.8-10.6) k/uL RBC (4.30-5.90) m/uL Hgb (13.0-17.5) gm/dL Hct (39.0-53.0) % RDW (11.5-15.5) % Neutrophils # (Manual) (1.3-7.7) k/uL Monocytes # (Manual) (0-1.0) k/uL PT (9.0-12.0) sec INR (<1.2) APTT (22.0-30.0) sec Sodium 133 L (137-145) mmol/L Chloride 96 L (98-107) mmol/L BUN 42 H (9-20) mg/dL Creatinine 2.47 H (0.66-1.25) mg/dL Glucose 100 H (74-99) mg/dL POC Glucose (mg/dL) (75-99) mg/dL Calcium 7.1 L (8.4-10.2) mg/dL Iron (65-175) ug/dL % Saturation (15.00-50.00) Total Bilirubin 4.6 H (0.2-1.3) mg/dL AST 1180 H (17-59) U/L ALT 902 H (4-49) U/L Alkaline Phosphatase 157 H (38-126) U/L Total Protein 5.7 L (6.3-8.2) g/dL Total Protein (PEP) (6.2-8.2) g/dL Albumin 2.6 L (3.5-5.0) g/dL Microbiology - Last 24 Hours (Table) 03/26/20 13:01 Blood Culture - Preliminary Blood No Growth after 72 hours Assessment and Plan Plan: Assessment: #1. Acute on chronic systolic heart failure, and the patient with ischemic cardiomyopathy and left ventricular dysfunction and ejection fraction of 30-35% #2. Cardiogenic shock, resolved #3. Chronic atrial fibrillation #4. Congestive hepatopathy, #5. Possible abdominal sepsis #6. Lactic acidosis related to hypoperfusion related to acute exacerbation of systolic CHF #7. Rule out mesenteric ischemia #8. Cardiorenal syndrome #9. Coumadin induced coagulopathy #10. History of coronary artery disease with previous stenting #11. Hyperlipidemia #12. History of hypertension #13. Prior history of myocardial infarction #14. Status post pacemaker insertion Plan: We'll continue current antibiotics, continue stable, patient is afebrile, no acute events overnight, renal profile is improving, LFTs are improving, no fever, chills, midodrine was added by nephrology, and altered mentation, no acute events, he can be considered for transfer out of the intensive care unit to [facility]. I performed a history & physical examination of the patient and discussed their management with my nurse practitioner, Nimco Drew. I reviewed the nurse practitioner's note and agree with the documented findings and plan of care. Lung sounds are positive for diminished breath sounds with bilateral crackles The findings and the impression was discussed with the patient. I attest to the documentation by the nurse practitioner. Time with Patient: Less than 30
--- NOTE | 2020-03-30 09:49 | P.PN ---
Subjective Principal diagnosis: Elevated LFTs and jaundice, abdominal pain The patient was seen and examined sitting up in bed in the ICU. Patient states he is feeling much better today. He denies any abdominal pain, nausea or vomiting. He is tolerating his clear liquid diet. He states he is passing flatus, has not had a bowel movement. No signs of any GI bleed. Objective - Vital Signs Vital signs: Vital Signs Temp 97.9 F 03/30/20 08:00 Pulse 88 03/30/20 08:58 Resp 21 03/30/20 08:00 BP 90/58 03/30/20 08:00 Pulse Ox 95 03/30/20 08:00 Intake & Output 03/29/20 03/30/20 03/30/20 18:59 06:59 18:59 Intake Total 571.04 1040 100 Output Total 1595 965 215 Balance -1023.96 75 -115 Weight 76.5 kg Intake: IV 445.85 640 100 0.9 NaCl- 240 540 100 DOBUTamine DRIP 500 mg In 5.85 Dextrose/Water 1 250ml. bag @ 2.5 MCG/KG/MIN 5.85 mls/hr IV .Q24H [facility] Rx#: [id number] Zosyn 200 100 Intake, IV Titration 125.19 Amount DOBUTamine DRIP 500 mg In 125.19 Dextrose/Water 1 250ml. bag @ 2.5 MCG/KG/MIN 5.85 mls/hr IV .Q24H [facility] Rx#: [id number] Oral 400 Output: Urine 1595 965 215 Other: Voiding Method Indwelling Catheter Indwelling Catheter Indwelling Catheter - Exam General appearance: The patient is alert, oriented, in no acute distress. HET: Head is normocephalic and atraumatic. Conjunctiva pink. Sclera anicteric. Neck: Supple without lymphadenopathy. Abdomen: Soft, nontender, nondistended with normal bowel sounds. No guarding or rigidity. Extremities: Normal skin color and turgor. No pedal edema Neurological: No focal deficits. Alert and oriented 3. - Labs CBC & Chem 7: 03/30/20 03:08 03/30/20 03:08 Labs: Abnormal Lab Results - Last 24 Hours (Table) 03/29/20 03/29/20 03/29/20 Range/Units 03:22 03:22 11:46 WBC (3.8-10.6) k/uL RBC (4.30-5.90) m/uL Hgb (13.0-17.5) gm/dL Hct (39.0-53.0) % RDW (11.5-15.5) % Neutrophils # (Manual) (1.3-7.7) k/uL Monocytes # (Manual) (0-1.0) k/uL PT (9.0-12.0) sec INR (<1.2) APTT (22.0-30.0) sec Sodium (137-145) mmol/L Chloride (98-107) mmol/L BUN (9-20) mg/dL Creatinine (0.66-1.25) mg/dL Glucose (74-99) mg/dL POC Glucose (mg/dL) 100 H (75-99) mg/dL Calcium (8.4-10.2) mg/dL Iron 12 L (65-175) ug/dL % Saturation 4.53 L (15.00-50.00) Total Bilirubin (0.2-1.3) mg/dL AST (17-59) U/L ALT (4-49) U/L Alkaline Phosphatase (38-126) U/L Total Protein (6.3-8.2) g/dL Total Protein (PEP) 5.2 L (6.2-8.2) g/dL Albumin (3.5-5.0) g/dL 03/29/20 03/30/20 03/30/20 Range/Units 16:22 03:08 03:08 WBC 11.5 H (3.8-10.6) k/uL RBC 4.26 L (4.30-5.90) m/uL Hgb 11.2 L (13.0-17.5) gm/dL Hct 35.5 L (39.0-53.0) % RDW 17.7 H (11.5-15.5) % Neutrophils # (Manual) 9.20 H (1.3-7.7) k/uL Monocytes # (Manual) 1.38 H (0-1.0) k/uL PT 22.8 H (9.0-12.0) sec INR 2.3 H (<1.2) APTT 45.0 H (22.0-30.0) sec Sodium (137-145) mmol/L Chloride (98-107) mmol/L BUN (9-20) mg/dL Creatinine (0.66-1.25) mg/dL Glucose (74-99) mg/dL POC Glucose (mg/dL) 198 H (75-99) mg/dL Calcium (8.4-10.2) mg/dL Iron (65-175) ug/dL % Saturation (15.00-50.00) Total Bilirubin (0.2-1.3) mg/dL AST (17-59) U/L ALT (4-49) U/L Alkaline Phosphatase (38-126) U/L Total Protein (6.3-8.2) g/dL Total Protein (PEP) (6.2-8.2) g/dL Albumin (3.5-5.0) g/dL 03/30/20 Range/Units 03:08 WBC (3.8-10.6) k/uL RBC (4.30-5.90) m/uL Hgb (13.0-17.5) gm/dL Hct (39.0-53.0) % RDW (11.5-15.5) % Neutrophils # (Manual) (1.3-7.7) k/uL Monocytes # (Manual) (0-1.0) k/uL PT (9.0-12.0) sec INR (<1.2) APTT (22.0-30.0) sec Sodium 133 L (137-145) mmol/L Chloride 96 L (98-107) mmol/L BUN 42 H (9-20) mg/dL Creatinine 2.47 H (0.66-1.25) mg/dL Glucose 100 H (74-99) mg/dL POC Glucose (mg/dL) (75-99) mg/dL Calcium 7.1 L (8.4-10.2) mg/dL Iron (65-175) ug/dL % Saturation (15.00-50.00) Total Bilirubin 4.6 H (0.2-1.3) mg/dL AST 1180 H (17-59) U/L ALT 902 H (4-49) U/L Alkaline Phosphatase 157 H (38-126) U/L Total Protein 5.7 L (6.3-8.2) g/dL Total Protein (PEP) (6.2-8.2) g/dL Albumin 2.6 L (3.5-5.0) g/dL Microbiology - Last 24 Hours (Table) 03/26/20 13:01 Blood Culture - Preliminary Blood No Growth after 72 hours Assessment and Plan (1) Transaminitis Narrative/Plan: This is s a patient who presented to the hospital with worsening shortness of breath diffuse abdominal pain associated with nausea, vomiting and not feeling well since November of last year. He's had a weight loss of approximately 20 pounds. At the time of admission to the hospital he was noted to have leukocyt osis and increased serum transaminases as well as bilirubin up to 3.8 area computed tomography scan and ultrasound showed no evidence of gallstones or biliary ductal dilation. He has a long-standing history of ischemic cardiomyopathy with an ejection fraction of 30% and status post AICD implantatio n. He was also noted to have lactic acidosis at presentation. The clinical picture is more consistent with a global hypoperfusion causing ischemic hepatitis impossibility of small bowel ischemia cannot be excluded. His BUN and creatinine were also elevated consistent with hypoperfusion state. The patient has been started on Zosyn. Possible cirrhosis of the liver based on imaging studies, the CAT scan showed nodular appearing liver which appears to be decompensated with the current clinical situation. Daily LFTs, LFTs continue to trend down. Current Visit: Yes Status: Acute Priority: High Code(s): R74.01 - ELEVATION OF LEVELS OF LIVER TRANSAMINASE LEVELS SNOMED Code(s): 600375809 (2) Abdominal pain Current Visit: Yes Status: Acute Code(s): R10.9 - UNSPECIFIED ABDOMINAL PAIN SNOMED Code(s): 98033812 (3) Ascites Narrative/Plan: Small amount of ascites noted on CT of the abdomen Current Visit: Yes Status: Acute Code(s): R18.8 - OTHER ASCITES SNOMED Code(s): 767702607 (4) Afib Narrative/Plan: Patient has a history of atrial fibrillation and was on several toe, it is currently on hold. INR is significantly elevated Current Visit: No Status: Acute Code(s): I48.91 - UNSPECIFIED ATRIAL FIBRILLATION SNOMED Code(s): 58515301 Plan: 1. Continue supportive and symptomatic care 2. Continue with recommendations from surgery, cardiology, and nephrology 3. Diet per surgery recommendations 4. Continue with broad-spectrum antibiotics 5. Avoid hepatotoxic medications, including statins for now. 6. Daily CBC, INR, CMP 7. We will follow with you closely Dr. Haque I agree with the dictator's note, documented as a scribe by Yvrose Duke.
[2020-03-30 11:10] LABS: Liver/Kidney Microsome Antibod 1.5 UNITS (<=20)
[2020-03-30] MEDS ORDERED: POTASSIUM CHLORIDE ER 20 MEQ TAB.ER PO STA (11:23)
[2020-03-30 12:41] LABS: Albumin 2.61 g/dL (3.80-4.90); Gamma Globulin 1.05 g/dL (0.70-1.50)
--- NOTE | 2020-03-30 13:30 | P.PN ---
Subjective HISTORY OF PRESENTING ILLNESS Patient is a pleasant 70-year-old male with history of CAD with multiple stents in the past, ischemic cardiomyopathy, atrial fibrillation on Xarelto, subcutaneous AICD, ventricular tachycardia with ICD discharge in November on amiodarone, multiple ablations in the past who normally follows with Dr. Curry. Patient did have an AICD discharge in November admits he has not felt well since that time. Mainly he has been having nausea, vomiting, problems with eating more substantial foods with abdominal pain when he does eat these and approximate 20-30 pound weight loss. Patient did present in February where he had catheterization performed with CT of the RCA with trxk-ei-[id number] collaterals and mild to moderate disease of the circumflex and no significant stenosis of the LAD. Patient presented mainly with continued nausea, vomiting and abdominal pain and was found to have increased lactic acidosis, leukocytosis, acute kidney injury and hypotension. He did have a CTA performed of the abdomen and pelvis which showed a small amount of ascites, wall thickening of the colon and mention of the SMA and celiac axis the diminutive size with extensive vascular disease. He additionally had coagulopathy with INR of 9, shock liver with AST and ALTs in the thousands. His amiodarone was stopped. 03/29/20 Patient seen and examined. Creatinine is mildly improved at 2.47. Patient denies any chest pain or pressure. Denies any shortness breath. Patient did convert to normal sinus rhythm. His INR and liver enzymes continue to improve. Statin and amiodarone have been held for liver injury. Continues on broad- spectrum antibiotics. He admits he has not had a bowel movement since presentation. Patient able to eat some food however still does not have much of an appetite. Echocardiogram from 03/28 showed ejection fraction 25-30% and appeared to have moderate mitral regurgitation. REVIEW OF SYSTEMS At the time of my exam: CONSTITUTIONAL: Denies fever or chills. CARDIOVASCULAR: Denies chest pain, shortness of breath, or palpitations. RESPIRATORY: Denies cough. GASTROINTESTINAL: + abdominal pain, no diarrhea, constipation, nausea or vomiting. MUSCULOSKELETAL: Denies myalgias. NEUROLOGIC: Denies numbness, tingling or weakness. ENDOCRINE: + fatigue, +weight loss. GENITOURINARY: Denies burning, hematuria or urgency with micturation. HEMATOLOGIC: Denies history of anemia or bleeding. PHYSICAL EXAMINATION Blood pressure 97/57 heart rate 85 afebrile and maintaining oxygen saturation on 2 L nasal cannula. CONSTITUTIONAL: No apparent distress, chronically ill-appearing, thin. HEENT: Head is normocephalic. Pupils are equal, round. Sclerae anicteric. Mucous membranes of the mouth are moist. No carotid bruit. CHEST EXAMINATION: Lungs are clear to auscultation. + Mild crackles at bases HEART EXAMINATION: Regular rate and rhythm. S1, S2 heard. +2/6 systolic murmur. ABDOMEN: Soft, +mildly tender. No bruit noted. Positive bowel sounds. EXTREMITIES: 2+ peripheral pulses, +1+ lower extremity edema and no calf tenderness. NEUROLOGIC EXAMINATION: Patient is awake, alert and oriented x3. ASSESSMENT 1. Shock of unclear etiology. Predominantly appears septic shock with increased white blood cell count and lactic acidosis however he does have significant cardiomyopathy and at least moderate to severe MR and may be a component of cardiogenic shock. Dobutamine has been weaned. 2. Acute liver injury, likely shock liver with coagulopathy. Improving. Possible additional component of amiodarone liver injury. Amiodarone discontinued 3. Ischemic cardiomyopathy with EF 25-30% 4. 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 At least moderate to severe posteriorly directed mitral regurgitation with posterior leaflet tethering. Echo this admission showed moderate mitral regurgitation. 6. Moderate to severe tricuspid regurgitation 7. History of hypertension, currently off of all antihypertensives 8. Coagulopathy, improving 9. Acute kidney injury likely related to contrast-induced nephropathy from CTA as well as ATN from hypotension 10. Anemia 11. Elevated troponin, likely type II mechanism from shock 12. Paroyxsmal A. fib 13. AICD present 14. History of ventricular tachycardia status post ablation and AICD, previously on amiodarone 15. Persistent nausea, vomiting, abdominal pain since November. May be a component of mesenteric ischemia. PLAN Vitals and labs appear improving with supportive care. Continue with current supportive regimen. Liver function and INR continue to improve. Continue with empiric antibiotics. Continue to monitor urine output and creatinine. We'll continue with supportive care as majority of decompensation appears related to sepsis. Possibly once patient has been stabilized consider AKILAH to evaluate degree of mitral regurgitation and may also consider right heart catheterization to evaluate cardiac output and filling pressures. May additionally consider mesenteric angiography and possible mesenteric stenting however has acute kidney injury and primary picture appears to be global hypo-perfusion. Appears improving daily. Objective - Vital Signs Vital signs: Vital Signs Temp 97.9 F 03/30/20 12:00 Pulse 85 03/30/20 13:17 Resp 20 03/30/20 12:00 BP 97/57 03/30/20 12:00 Pulse Ox 96 03/30/20 12:00 Intake & Output 03/29/20 03/30/20 03/30/20 18:59 06:59 18:59 Intake Total 571.04 1040 100 Output Total 1595 965 215 Balance -1023.96 75 -115 Weight 76.5 kg 76.5 kg Intake: IV 445.85 640 100 0.9 NaCl- 240 540 100 DOBUTamine DRIP 500 mg In 5.85 Dextrose/Water 1 250ml. bag @ 2.5 MCG/KG/MIN 5.85 mls/hr IV .Q24H BRENT Rx#: [id number] Zosyn 200 100 Intake, IV Titration 125.19 Amount DOBUTamine DRIP 500 mg In 125.19 Dextrose/Water 1 250ml. bag @ 2.5 MCG/KG/MIN 5.85 mls/hr IV .Q24H BRENT Rx#: [id number] Oral 400 Output: Urine 1595 965 215 Other: Voiding Method Indwelling Catheter Indwelling Catheter Indwelling Catheter - Labs CBC & Chem 7: 03/30/20 03:08 03/30/20 03:08 Labs: Abnormal Lab Results - Last 24 Hours (Table) 03/29/20 03/29/20 03/30/20 Range/Units 03:22 16:22 03:08 WBC 11.5 H (3.8-10.6) k/uL RBC 4.26 L (4.30-5.90) m/uL Hgb 11.2 L (13.0-17.5) gm/dL Hct 35.5 L (39.0-53.0) % RDW 17.7 H (11.5-15.5) % Neutrophils # (Manual) 9.20 H (1.3-7.7) k/uL Monocytes # (Manual) 1.38 H (0-1.0) k/uL PT (9.0-12.0) sec INR (<1.2) APTT (22.0-30.0) sec Sodium (137-145) mmol/L Chloride (98-107) mmol/L BUN (9-20) mg/dL Creatinine (0.66-1.25) mg/dL Glucose (74-99) mg/dL POC Glucose (mg/dL) 198 H (75-99) mg/dL Calcium (8.4-10.2) mg/dL Total Bilirubin (0.2-1.3) mg/dL AST (17-59) U/L ALT (4-49) U/L Alkaline Phosphatase (38-126) U/L Total Protein (6.3-8.2) g/dL Albumin (3.5-5.0) g/dL Albumin (PEP) 2.61 L (3.80-4.90) g/dL Nrlyl-1-Gagwhgqhp 0.52 L (0.60-1.00) g/dL 03/30/20 03/30/20 Range/Units 03:08 03:08 WBC (3.8-10.6) k/uL RBC (4.30-5.90) m/uL Hgb (13.0-17.5) gm/dL Hct (39.0-53.0) % RDW (11.5-15.5) % Neutrophils # (Manual) (1.3-7.7) k/uL Monocytes # (Manual) (0-1.0) k/uL PT 22.8 H (9.0-12.0) sec INR 2.3 H (<1.2) APTT 45.0 H (22.0-30.0) sec Sodium 133 L (137-145) mmol/L Chloride 96 L (98-107) mmol/L BUN 42 H (9-20) mg/dL Creatinine 2.47 H (0.66-1.25) mg/dL Glucose 100 H (74-99) mg/dL POC Glucose (mg/dL) (75-99) mg/dL Calcium 7.1 L (8.4-10.2) mg/dL Total Bilirubin 4.6 H (0.2-1.3) mg/dL AST 1180 H (17-59) U/L ALT 902 H (4-49) U/L Alkaline Phosphatase 157 H (38-126) U/L Total Protein 5.7 L (6.3-8.2) g/dL Albumin 2.6 L (3.5-5.0) g/dL Albumin (PEP) (3.80-4.90) g/dL Sdeox-6-Ltahixzxa (0.60-1.00) g/dL Microbiology - Last 24 Hours (Table) 03/26/20 13:01 Blood Culture - Preliminary Blood No Growth after 72 hours
--- NOTE | 2020-03-30 13:31 | PN ---
PROGRESS NOTE The patient is seen for followup for acute kidney injury. He is currently sitting up in bed. Patient is comfortable. Denies any significant complaints. PHYSICAL EXAMINATION: This morning blood pressure was 119/48, heart rate was high at 160. The patient is afebrile. EXAMINATION OF THE HEART: S1, S2. EXAMINATION OF THE LUNGS: Decreased breath sounds at bases. Abdomen is soft. Examination of lower extremities shows 1+ edema bilaterally. ANIMAL COP exam grossly intact. LABS: Labs show sodium of 133, potassium 3.6, chloride 96, BUN 42, serum creatinine 2.47. Hemoglobin is 11.2 g/dL. ASSESSMENT: 1. Acute kidney injury, acute tubular necrosis, secondary to ischemic acute tubular necrosis and contrast nephropathy, currently nonoliguric with improving renal function. 2. Mild volume overload, currently stable and somewhat improved from 2 days ago. 3. Hyperkalemia associated acute kidney injury, now resolved. 4. Cardiomyopathy, ejection fraction 35%, status post IV dobutamine. 5. Lactic acidosis associated with hypotension hypoperfusion and sepsis, now improved. 6. Atrial fibrillation. The patient's heart rate had been controlled however it was elevated to 160, but then now it seems to have improved back down to around 80. 7. Moderate to severe tricuspid regurgitation. PLAN: Continue with the midodrine. I will discontinue the IV fluids. Encourage increased oral intake. Repeat labs in a.m. MMODL / IJN: [id number] /
--- NOTE | 2020-03-30 18:42 | P.PN ---
Progress Note - Text Progress Note Date: 03/30/20 Chief Complaint: Abdominal pain History of presenting complaint: This is a pleasant 69-year-old patient of Dr. Cheatham. Chronic stable medical conditions include coronary artery disease, hyperlipidemia, multiple MIs in the past, coronary stent, peptic ulcer disease, ischemic cardiomyopathy, previous V. tach ablation, atrial fibrillation,. 2 weeks ago patient was admitted with CHF exacerbation. Cardiac catheterization [March 14] showed chronically occluded RCA with extensive ydlk-wi-cxnlk collaterals. Also some focal obstructive lesion in the circumflex. Creatinine then was 1.16. Patient now presents with having nausea vomiting "a few days. Also having dif fuse abdominal pain. Appetite is rather poor. Has not had a bowel movement for 5 days. Shortness of breath. Denies any fever and chills. Occasional cough. Some edema. Has orthopnea. Admitted with suspected ischemic colitis, causing resultant hypotension, severe lactic acidosis ischemic hepatitis, abnormal regulation profile with a contribution from xarelto, pulmonary edema with acute CHF exacerbation. Patient was given vitamin K put on IV dobutamine, bronchodilators will be ICU. Started on IV Zosyn. Qfxpq-[id number]-[id number] up in a chair. Feeling better. No nausea vomiting. Abdominal pain. Has not had a bowel movement. He tolerated full liquids. Received vitamin K. Review of systems: Was done for constitutional, cardiovascular, GI, pulmonary. relevant finding as above Past medical history to include: Coronary artery disease with stent, multiple MIs, hyperlipidemia, peptic ulcer disease, CHF EF 35-40%, ventricular tachycardia ablation, AICD placement, chronic atrial fibrillation, Social history: Lives alone. Smoking a pack a day closed to 59 years, takes about 6 pack a week. 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 Conjunctiva normal. HEENT: External appearance of nose and ears normal, oral cavity grossly normal. NECK: JVD possibly raised; masses not palpable. HEART: Irregular heart sounds; edema present. LUNGS: Respiratory rate increased, decreased breath sounds. ABDOMEN: Soft, no tenderness, no guarding rigidity, liver spleen not palpable, no masses palpable. PSYCH: Alert and oriented x3; mood and affect better INVESTIGATIONS, reviewed in the clinical context: March 30: White count 11.5 hemoglobin 11.2 ProTime 22.8 PTT 45.0 sodium 133 potassium 3.6 BUN 42 creatinine 2.47 AST 1180 ALT 902 albumin 2.6 March 29: White count 13.2 hemoglobin 11.2 platelets 215 INR 4.0 PTT 49.1 potassium 4.2 bun 56 creatinine 3.38AST 2488 ALT 1242 alpha-1 antitrypsin normal at 181 70+ been normal at 31.1 tumor marker AFP test 2.5 Acute hepatitis panel including hepatitis A IgM antibody, hepatitis B surface antigen, hepatitis B core IgM antibody, hepatitis C IgG antibody all nonreactive. In a screen negative March 28: White count 19.7 hemoglobin 10.7 platelets 254 ProTime 89.3 INR 9.1 PTT 55.2 sodium 131 potassium 5.1 bun 47 creatinine 3.37 calcium 6.3 bilirubin 53.6 AST 07/22/2006 ALT 1695 troponin I 0.086, 0.068 pro-calcitonin 1.96 White count 29.2 hemoglobin 12.2 platelets 327 ProTime greater than 10 Potassium 6 bicarbonate 17 bun 29 creatinine 2.58 total bilirubin 3.8 AST 7392 ALT 1842 Admission testing: White count 25.4 hemoglobin 13.6 platelets 384 Sodium 135 potassium 5.7 creatinine 1.61 lactic 10.4 total bilirubin 3.2 AST 1472 ALT 537 Coronavirus-P/Cr-not detected Computed tomography scan of the abdomen pelvis-moderate size bilateral pleural effusion and compression atelectasis, [employer] of the colon the right colon contracted gallbladder Ultrasound-contracted gallbladder EKG tracing personally reviewed by me-atrial fibrillation rate of 91 Chest x-ray film-pleural effusion atelectasis Previous testing: Hemoglobin 11.6 on March 14 Creatinine 1.16 on March 14 Assessment: -acute ischemic colitis given that the patient has got significant vascular disease, infective component cannot be ruled out-improving -Acute ischemic hepatitis, severe from CHF and improving -Abnormal coagulation profile with a combination of patient poor oral intake and also being on an xarelto and also vitamin K deficiency-getting vitamin K -AICD -Coronary artery disease with prior history of stents -Acute on chronic congestive heart failure exacerbation from systolic dysfunction EF 30-35%-better -Acute hypoxic respiratory failure from pulmonary edema on 2 L of nasal cannula- improving -Moderate tricuspid regurgitation -Hyperlipidemia -Persistent atrial fibrillation/flutter-rate controlled -Chronic nicotine dependence patient active cigarette smoker -Acute kidney injury likely ATN from cardiorenal syndrome, the possible contribution from contrast-induced nephropathy from cardiac catheterization and IV contrast with computed tomography slow improvement -Bilateral pleural effusion from CHF with a prior history of thoracentesis -Metabolic acidosis multifactorial -Hyperkalemia from renal failure-improved -Troponin leak from acute kidney injury and hemodynamic instability Plan: Patient on DuoNeb, midodrine, vitamin K, IV Zosyn.tolerated full liquids. Diet advanced per surgery. Remote the patient of the ICU. Increase activity
[2020-03-31] MEDS: PIPERACILLIN-TAZOBACTAM 3.375 GM in SODIUM CHLORIDE 0.9% 100 ML IVPB SCH ×4 (04:54→23:27)
[2020-03-31] MEDS: MIDODRINE 5 MG TAB PO SCH ×3 (06:32→16:46)
[2020-03-31] MEDS: IPRATROPIUM-ALBUTEROL 3 ML NEB INHALATION SCH ×4 (07:20→20:02)
[2020-03-31 07:29] LABS: Anisocytosis Slight; HCT 35.3 % (39.0-53.0); Hypochromasia Moderate; MCHC 31.1 g/dL (31.0-37.0); MCV 83.8 fL (80.0-100.0); Mean Platelet Volume 9.6; Platelet Count 158 k/uL (150-450); Poikilocytosis Slight; RBC 4.21 m/uL (4.30-5.90); RDW 17.8 % (11.5-15.5); WBC 12.4 k/uL (3.8-10.6)
[2020-03-31 07:46] LABS: Albumin 2.8 g/dL (3.5-5.0); Calcium 7.3 mg/dL (8.4-10.2); Potassium 3.6 mmol/L (3.5-5.1); Total Bilirubin 5.6 mg/dL (0.2-1.3); Total Protein 5.8 g/dL (6.3-8.2)
[2020-03-31 07:47] LABS: INR 1.7 (<1.2); Partial Thromboplastin Time 39.7 sec (22.0-30.0); Prothrombin Time 17.3 sec (9.0-12.0)
[2020-03-31] MEDS: PANTOPRAZOLE 40 MG TABLET PO SCH ×2 (08:08→20:51)
[2020-03-31] MEDS: METOPROLOL SUCCINATE (ER) 25 MG TAB.ER.24H PO SCH (08:11)
[2020-03-31 09:03] LABS: Eosinophils # (M) 0.25 k/uL (0-0.7); Lymphocytes # (M) 0.62 k/uL (1.0-4.8); Monocytes # (M) 1.36 k/uL (0-1.0); Neutrophils # (M) 10.17 k/uL (1.3-7.7); Neutrophils % (M) 82 %; Nucleated Red Blood Cells 0 /100 WBC (0-0); Target Cells Present; Total Cells Counted 100
[2020-03-31 09:04] LABS: Crenated RBC Present
[2020-03-31] MEDS ORDERED: FUROSEMIDE 10 MG/ML 4 ML VIAL IV STA (10:55)
--- NOTE | 2020-03-31 14:02 | P.PN ---
Subjective Progress Note Date: 03/31/20 Principal diagnosis: pulmonary edema, transaminitis, coagulopathy In follow-up today patient is sitting up in the chair, eating his lunch independently. He has no acute physical complaints, denies any nausea. He did have a bloody nose this morning but, it was easily stopped. No other bleeding to report. Patient denies any pain. Objective - Vital Signs Vital signs: Vital Signs Temp 97.6 F 03/31/20 08:00 Pulse 108 H 03/31/20 11:34 Resp 18 03/31/20 11:34 BP 117/81 03/31/20 11:34 Pulse Ox 91 L 03/31/20 11:34 Intake & Output 03/30/20 03/31/20 03/31/20 18:59 06:59 18:59 Intake Total 700 340 Output Total 665 350 200 Balance 35 -350 140 Weight 76.5 kg 73.1 kg Intake: IV 600 100 0.9 NaCl- 500 Zosyn 100 100 Oral 100 240 Output: Urine 665 350 200 Other: Voiding Method Indwelling Catheter Urinal - Constitutional General appearance: Present: cooperative, no acute distress, thin - EENT Eyes: Present: EOMI, scleral icterus ENT: Present: hearing grossly normal - Respiratory Respiratory: bilateral: diminished (Week respiratory effort) - Cardiovascular Heart sounds: normal: S1, S2 - Peripheral edema leg Peripheral Edema: bilateral: None - Neurologic Neurologic: Present: CNII-XII intact - Musculoskeletal Musculoskeletal: Present: generalized weakness - Psychiatric Psychiatric: Present: A&O x's 3, appropriate affect, intact judgment & insight - Labs CBC & Chem 7: 03/31/20 06:27 03/31/20 06:27 Labs: Abnormal Lab Results - Last 24 Hours (Table) 03/31/20 03/31/20 03/31/20 Range/Units 06:27 06:27 06:27 WBC 12.4 H (3.8-10.6) k/uL RBC 4.21 L (4.30-5.90) m/uL Hgb 11.0 L (13.0-17.5) gm/dL Hct 35.3 L (39.0-53.0) % RDW 17.8 H (11.5-15.5) % Neutrophils # (Manual) 10.17 H (1.3-7.7) k/uL Lymphocytes # (Manual) 0.62 L (1.0-4.8) k/uL Monocytes # (Manual) 1.36 H (0-1.0) k/uL PT 17.3 H (9.0-12.0) sec INR 1.7 H (<1.2) APTT 39.7 H (22.0-30.0) sec Sodium 133 L (137-145) mmol/L BUN 25 H (9-20) mg/dL Creatinine 1.37 H (0.66-1.25) mg/dL Glucose 141 H (74-99) mg/dL Calcium 7.3 L (8.4-10.2) mg/dL Total Bilirubin 5.6 H (0.2-1.3) mg/dL AST 459 H (17-59) U/L ALT 582 H (4-49) U/L Alkaline Phosphatase 188 H (38-126) U/L Total Protein 5.8 L (6.3-8.2) g/dL Albumin 2.8 L (3.5-5.0) g/dL Microbiology - Last 24 Hours (Table) 03/26/20 13:01 Blood Culture - Preliminary Blood No Growth after 96 hours Assessment and Plan (1) Coagulopathy Narrative/Plan: 2/2 liver dysfunction and being on anticoagulation. Suspect shock to the organs when pt had severe hypotension. Pt has moderate to severe cardiovascular disease. Vit K daily for total of 3 doses-completed today. Hgb monitoring Cont coags daily Current Visit: Yes Status: Acute Priority: High Code(s): D68.9 - COAGULATION DEFECT, UNSPECIFIED SNOMED Code(s): 74374701 (2) Transaminitis Narrative/Plan: LFTs continuing to improve, bilirubin continues to worsen. Discussed with the patient about this could mean progressive liver decompensation if his bilirubin continues to worsen despite improvement in liver enzymes. He is being followed by Gastroenterology. Current Visit: Yes Status: Acute Priority: High Code(s): R74.01 - ELEVATION OF LEVELS OF LIVER TRANSAMINASE LEVELS SNOMED Code(s): 180673086
--- NOTE | 2020-03-31 14:26 | P.PN ---
<Chelsea De La Fuente A - Last Filed: 03/31/20 14:21> Subjective Progress Note Date: 03/31/20 HISTORY OF PRESENT ILLNESS: Patient examined this morning at the bedside. He denies chest pain or pressure. He reports shortness of breath that he states is about the same as yesterday. Patient went into atrial fibrillation this morning with a heart rate in the 120s. Blood pressure this morning is 106/69. Creatinine has improved to 1.37. INR 1.7. PHYSICAL EXAM: VITAL SIGNS: Reviewed. GENERAL: Well-developed in no acute distress. NECK: Supple. No JVD or thyromegaly LUNGS: Respirations even and unlabored. Lungs essentially clear to auscultation bilaterally. HEART: Tachycardic. Irregular rate and rhythm. S1 and S2 heard. Systolic murmur noted EXTREMITIES: Normal range of motion. No clubbing or cyanosis. Peripheral pulses intact. 1+ bilateral lower extremity edema ASSESSMENT: 1. Shock of unclear etiology. Predominantly appears septic shock with increased white blood cell count and lactic acidosis however he does have significant cardiomyopathy and at least moderate to severe MR and may be a component of cardiogenic shock. Dobutamine has been weaned. 2. Acute liver injury, likely shock liver with coagulopathy. Improving. Possible additional component of amiodarone liver injury. Amiodarone discontinued 3. Ischemic cardiomyopathy with EF 25-30% 4. 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 At least moderate to severe posteriorly directed mitral regurgitation with posterior leaflet tethering. Echo this admission showed moderate mitral regurgitation. 6. Moderate to severe tricuspid regurgitation 7. History of hypertension 8. Coagulopathy, improving 9. Acute kidney injury likely related to contrast-induced nephropathy from CTA as well as ATN from hypotension 10. Anemia 11. Elevated troponin, likely type II mechanism from shock 12. Paroyxsmal A. fib 13. AICD present 14. History of ventricular tachycardia status post ablation and AICD, previou sly on amiodarone 15. Persistent nausea, vomiting, abdominal pain since November. May be a component of mesenteric ischemia. PLAN: Resume metoprolol Continue telemetry monitoring Monitor labs. Likely will resume anticoagulation tomorrow Possible AKILAH in the future to evaluate degree of mitral regurgitation Further recommendations pending patient course Nurse practitioner note has been reviewed by physician. Signing provider agrees with the documented findings, assessment, and plan of care. Objective - Vital Signs Vital signs: Vital Signs Temp 97.6 F 03/31/20 08:00 Pulse 108 H 03/31/20 11:34 Resp 18 03/31/20 11:34 BP 117/81 03/31/20 11:34 Pulse Ox 91 L 03/31/20 11:34 Intake & Output 03/30/20 03/31/20 03/31/20 18:59 06:59 18:59 Intake Total 700 340 Output Total 665 350 200 Balance 35 -350 140 Weight 76.5 kg 73.1 kg Intake: IV 600 100 0.9 NaCl- 500 Zosyn 100 100 Oral 100 240 Output: Urine 665 350 200 Other: Voiding Method Indwelling Catheter Urinal - Labs CBC & Chem 7: 03/31/20 06:27 03/31/20 06:27 Labs: Abnormal Lab Results - Last 24 Hours (Table) 03/31/20 03/31/20 03/31/20 Range/Units 06:27 06:27 06:27 WBC 12.4 H (3.8-10.6) k/uL RBC 4.21 L (4.30-5.90) m/uL Hgb 11.0 L (13.0-17.5) gm/dL Hct 35.3 L (39.0-53.0) % RDW 17.8 H (11.5-15.5) % Neutrophils # (Manual) 10.17 H (1.3-7.7) k/uL Lymphocytes # (Manual) 0.62 L (1.0-4.8) k/uL Monocytes # (Manual) 1.36 H (0-1.0) k/uL PT 17.3 H (9.0-12.0) sec INR 1.7 H (<1.2) APTT 39.7 H (22.0-30.0) sec Sodium 133 L (137-145) mmol/L BUN 25 H (9-20) mg/dL Creatinine 1.37 H (0.66-1.25) mg/dL Glucose 141 H (74-99) mg/dL Calcium 7.3 L (8.4-10.2) mg/dL Total Bilirubin 5.6 H (0.2-1.3) mg/dL AST 459 H (17-59) U/L ALT 582 H (4-49) U/L Alkaline Phosphatase 188 H (38-126) U/L Total Protein 5.8 L (6.3-8.2) g/dL Albumin 2.8 L (3.5-5.0) g/dL Microbiology - Last 24 Hours (Table) 03/26/20 13:01 Blood Culture - Preliminary Blood No Growth after 96 hours <Polo Palacios - Last Filed: 03/31/20 15:39> Subjective Discussed at length with primary fiber optic technician Dr. Curry. Patient appears to be improving from his shock which appears mainly related to sepsis. Remainder of his cardiac issues appear fairly stable at this time. Likely we will stabilize patient from a heart standpoint and have patient follow-up with Dr. Curry in the office and may further consider AKILAH at that time. Patient's poor appetite for a few months may be related to mesenteric ischemia. We will discuss again with patient tomorrow regarding possible mesentery angiography if creatinine continues to improve/stabilizes. Polo Palacios D.O. Objective - Vital Signs Vital signs: Vital Signs Temp 97.6 F 03/31/20 08:00 Pulse 93 03/31/20 15:20 Resp 18 03/31/20 11:34 BP 117/81 03/31/20 11:34 Pulse Ox 91 L 03/31/20 11:34 Intake & Output 03/30/20 03/31/20 03/31/20 18:59 06:59 18:59 Intake Total 700 340 Output Total 665 350 200 Balance 35 -350 140 Weight 76.5 kg 73.1 kg Intake: IV 600 100 0.9 NaCl- 500 Zosyn 100 100 Oral 100 240 Output: Urine 665 350 200 Other: Voiding Method Indwelling Catheter Urinal - Labs CBC & Chem 7: 03/31/20 06:27 03/31/20 06:27 Labs: Abnormal Lab Results - Last 24 Hours (Table) 03/31/20 03/31/20 03/31/20 Range/Units 06:27 06:27 06:27 WBC 12.4 H (3.8-10.6) k/uL RBC 4.21 L (4.30-5.90) m/uL Hgb 11.0 L (13.0-17.5) gm/dL Hct 35.3 L (39.0-53.0) % RDW 17.8 H (11.5-15.5) % Neutrophils # (Manual) 10.17 H (1.3-7.7) k/uL Lymphocytes # (Manual) 0.62 L (1.0-4.8) k/uL Monocytes # (Manual) 1.36 H (0-1.0) k/uL PT 17.3 H (9.0-12.0) sec INR 1.7 H (<1.2) APTT 39.7 H (22.0-30.0) sec Sodium 133 L (137-145) mmol/L BUN 25 H (9-20) mg/dL Creatinine 1.37 H (0.66-1.25) mg/dL Glucose 141 H (74-99) mg/dL Calcium 7.3 L (8.4-10.2) mg/dL Total Bilirubin 5.6 H (0.2-1.3) mg/dL AST 459 H (17-59) U/L ALT 582 H (4-49) U/L Alkaline Phosphatase 188 H (38-126) U/L Total Protein 5.8 L (6.3-8.2) g/dL Albumin 2.8 L (3.5-5.0) g/dL Microbiology - Last 24 Hours (Table) 03/26/20 13:01 Blood Culture - Preliminary Blood No Growth after 120 hours
--- NOTE | 2020-03-31 14:51 | P.PN ---
Subjective Progress Note Date: 03/31/20 Principal diagnosis: Acute on chronic systolic congestive heart failure, ischemic cardiomyopathy, cardiogenic shock This is a 70-year-old white male patient who was admitted to the hospital on 03/26/2020 when he presented with symptoms of vomiting, dry heaves, diffuse abdominal pain ongoing since November. Patient has extensive medical history including multiple episodes of myocardial infarction, CAD with stenting, ischemic cardiomyopathy, EF of 30-35%, ventricular tachycardia status post AICD placement, and patient had ICD discharge in November 2019, history of multiple ablations in the past. CT of the abdomen and pelvis showed moderate-sized bilateral pleural effusions, right more so than the left, small amount of ascites. His previous thoracentesis showed transudate of pleural effusion related to history of CHF. Patient is chronically short of breath on a regular basis, he does not feel significantly more short of breath than usual, he was placed on dobutamine infusion which was cut back yesterday to 2.5 mics per kilo per minute, this point in the morning and 20 ML per hour, he is still on 2 L of oxygen, lung sounds are diminished at the bases, no wheezing, no rhonchi. Denies any abdominal discomfort, his CT of the abdomen and pelvis was concerning for wall thickening of the colon particularly in the right colon the possibility of colitis, there was also evidence of extensive vascular disease, and there was a possibility of ischemic or infectious colitis. Gallbladder ultrasound showed mostly contracted gallbladder no gallstones or dilated ducts. Patient was considered a very high surgical risk when he was seen by surgery, and the recommendation was to treat the patient conservatively. His INR was also extremely elevated upon admission, currently trending down. His abdominal contents of nausea or vomiting in the last 24 hours, blood pressure at times on the lower side, with a systolic between 70 to low 100s, and diastolic in the 60 s, however clinically patient is asymptomatic, is a bit hypothermic, with 96.6F core temperature, and patient has a bear hugger. His respirations are nonlabored, patient denies any chest pain, patient went into A. fib last night, but the rate is controlled. Dobutamine will be discontinued this morning, cardiology is following. Patient got a dose of IV Lasix yesterday which seems to have increased his urine output, and improved his breathing. Today's chest x-ray shows some some worsening pleural effusions, atelectasis. Labs reviewed, with blood cell count is improving, down to 13.2, hemoglobin is 11.2, and is down to 4.0, sodium is 132, potassium is 4.2, chloride is 95, BUN is 56, and c reatinine is 3.38, his liver enzymes have improved, namely AST is down to 2488, ALT is 1242, and alkaline phosphatase is relatively stable from yesterday but down from admission, down to 153 on today's labs, COVID 19 was negative, urinalysis showed no evidence of infection, cultures have shown no growth. he is in overall 1.3 L of negative fluid balance over last 24 hours. On 03/30/2020 patient seen in follow-up in the intensive care unit, awake and alert, resting comfortably in bed, he is oriented 3, appears to be in acute distress, is in sinus mechanism with a controlled rate, he is on 2 L of oxygen, with a pulse ox of 95%, no fever no chills, at times he has had some low systolic blood pressure readings with systolic in the 70s, clinically asymptomatic, currently blood pressure is 90/58, debridement drip was discontinued, No arrhythmias, no complaints of chest pain, no worsening dyspnea, lung sounds are diminished at the bases with some limited crackles. Today's chest x-ray shows diffuse interstitial pattern, bilateral consolidation and pleural effusions. Patient remains on Zosyn for an antibiotic coverage, IV fluids with 0.9, secondary to 50 ML per hour. Today's labs have been reviewed, with blood cell count continues to improve, down to 11.5 on today's labs, hemoglobin is 11.2, INR is 2.3, and hematology is following, patient received vitamin K yesterday for INR of 4.0., Renal profile continues to improve, BUN is down to 42, creatinine is 2.47, liver enzymes are improving patient is tolerating oral intake, no abdominal discomfort The patient is seen today 03/31/2020 follow-up on the selective care unit. He is currently resting comfortably in bed. Awake and alert in no acute distress. Maintaining O2 saturations in the 90s on 2 L/m per nasal cannula. He did drop to 87% when checked on room air. White count 12.4. Hemoglobin 11.0. INR 1.7. Sodium 133. Potassium 3.6. Creatinine 1.37. AST 459, ALT 582. He remains on diuretics, antibiotics in the form of Zosyn, bronchodilators. Objective - Vital Signs Vital signs: Vital Signs Temp 97.6 F 03/31/20 08:00 Pulse 108 H 03/31/20 11:34 Resp 18 03/31/20 11:34 BP 117/81 03/31/20 11:34 Pulse Ox 91 L 03/31/20 11:34 Intake & Output 03/30/20 03/31/20 03/31/20 18:59 06:59 18:59 Intake Total 700 340 Output Total 665 350 200 Balance 35 -350 140 Weight 76.5 kg 73.1 kg Intake: IV 600 100 0.9 NaCl- 500 Zosyn 100 100 Oral 100 240 Output: Urine 665 350 200 Other: Voiding Method Indwelling Catheter Urinal - Exam GENERAL EXAM: Alert, very pleasant, 70-year-old male patient, on 2 L of oxygen and pulse ox 93% comfortable in no apparent distress. HEAD: Normocephalic/atraumatic. EYES: Normal reaction of pupils, equal size. Conjunctiva pink, sclera white. NOSE: Clear with pink turbinates. THROAT: No erythema or exudates. NECK: No masses, no JVD, no thyroid enlargement, no adenopathy. CHEST: No chest wall deformity. Symmetrical expansion. LUNGS: Equal air entry with bibasilar crackles CVS: Irregular rate and rhythm, normal S1 and S2, no gallops, positive murmur, no rubs ABDOMEN: Soft, nontender. No hepatosplenomegaly, normal bowel sounds, no guarding or rigidity. EXTREMITIES: No clubbing, no edema, no cyanosis, 2+ pulses and upper and lower extremities. MUSCULOSKELETAL: Muscle strength and tone normal. SPINE: No scoliosis or deformity SKIN: No rashes CENTRAL NERVOUS SYSTEM: Alert and oriented -3. No focal deficits, tone is normal in all 4 extremities. PSYCHIATRIC: Alert and oriented -3. Appropriate affect. Intact judgment and insight. - Labs CBC & Chem 7: 03/31/20 06:27 03/31/20 06:27 Labs: Abnormal Lab Results - Last 24 Hours (Table) 03/31/20 03/31/20 03/31/20 Range/Units 06:27 06:27 06:27 WBC 12.4 H (3.8-10.6) k/uL RBC 4.21 L (4.30-5.90) m/uL Hgb 11.0 L (13.0-17.5) gm/dL Hct 35.3 L (39.0-53.0) % RDW 17.8 H (11.5-15.5) % Neutrophils # (Manual) 10.17 H (1.3-7.7) k/uL Lymphocytes # (Manual) 0.62 L (1.0-4.8) k/uL Monocytes # (Manual) 1.36 H (0-1.0) k/uL PT 17.3 H (9.0-12.0) sec INR 1.7 H (<1.2) APTT 39.7 H (22.0-30.0) sec Sodium 133 L (137-145) mmol/L BUN 25 H (9-20) mg/dL Creatinine 1.37 H (0.66-1.25) mg/dL Glucose 141 H (74-99) mg/dL Calcium 7.3 L (8.4-10.2) mg/dL Total Bilirubin 5.6 H (0.2-1.3) mg/dL AST 459 H (17-59) U/L ALT 582 H (4-49) U/L Alkaline Phosphatase 188 H (38-126) U/L Total Protein 5.8 L (6.3-8.2) g/dL Albumin 2.8 L (3.5-5.0) g/dL Microbiology - Last 24 Hours (Table) 03/26/20 13:01 Blood Culture - Preliminary Blood No Growth after 96 hours Assessment and Plan Assessment: 1. Acute on chronic systolic heart failure, and the patient with ischemic cardiomyopathy and left ventricular dysfunction and ejection fraction of 30-35% 2. Cardiogenic shock, resolved. Severe mitral regurgitation 3. Chronic atrial fibrillation anticoagulated with warfarin 4. Congestive hepatopathy, 5. Possible abdominal sepsis 6. Lactic acidosis related to hypoperfusion related to acute exacerbation of systolic CHF 7. Rule out mesenteric ischemia 8. Cardiorenal syndrome 9. Coumadin induced coagulopathy 10. History of coronary artery disease with previous stenting 11. Hyperlipidemia 12. History of hypertension 13. Prior history of myocardial infarction 14. Status post pacemaker insertion Plan: The patient was seen and evaluated by Dr. Reid Continue with diuretics Continue Zosyn and bronchodilators Titrate down the FiO2 as tolerated We will continue to follow I, the cosigning physician, performed a history & physical examination of the patient. Lungs sounds with bibasilar crackles. Maintaining good O2 saturations in the 90s on 2 L/m per nasal cannula. I discussed the assessment and plan of care with my nurse practitioner, Edilia Malik. I attest to the above note as dictated by her.
[2020-03-31] MEDS: PHYTONADIONE 5 MG in SODIUM CHLORIDE 0.9% 50 ML IVPB SCH (15:01)
--- NOTE | 2020-03-31 15:32 | PN ---
PROGRESS NOTE Pt is seen for f/u for LARS. He has been transferre out of ICU. His renal function has been improving. This morning patient states that he is feeling short of breath. His creatinine is down to 1.37 from peak at 3.38. Urine output has been good. On examination today, blood pressure was 106/69, heart rate 107 per minute. He is afebrile. EXAMINATION OF THE HEART: S1 and S2. EXAMINATION OF LUNGS: Decreased breath sounds at bases. ABDOMEN: Soft, non-tender. Examination of lower extremities shows edema 1+ bilaterally. 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 Labs show sodium 133, potassium 3.6, chloride 98, BUN 25, creatinine 1.37, albumin 2.8, hemoglobin 11.0 g/dL. ASSESSMENT: 1. Acute kidney injury, acute tubular necrosis, ischemic and toxic from contrast nephropathy, currently improving. 2. Volume overload. I will give a dose of Lasix and maintain patient on IV Lasix. 3. Hyperkalemia associated with acute kidney injury, now resolved. 4. Cardiomyopathy, ejection fraction 35%, status post IV dobutamine earlier on during the admission. 5. Lactic acidosis secondary to hypotension, hypoperfusion and sepsis, now improved. 6. Moderate to severe tricuspid regurgitation. 7. Atrial fibrillation, currently controlled. PLAN: No further dictation audible. MMODL / IJN: [id number] / MTDD
[2020-03-31] MEDS ORDERED: FUROSEMIDE 40 MG TAB PO SCH (16:00)
--- NOTE | 2020-03-31 17:24 | P.PN ---
Subjective Progress Note Date: 03/31/20 Principal diagnosis: Elevated LFTs and jaundice, abdominal pain She was seen and examined lying in bed. He states he is having some shortness of breath. He denies any abdominal pain, nausea, or vomiting. His AST and ALT continue to trend down, however his total bilirubin today was 5.6, and alkaline phosphatase phosphatase 188. He had a prior gallbladder ultrasound in his early part of admission, which showed a contracted gallbladder due to dehydration. No CBD dilation. Objective - Vital Signs Vital signs: Vital Signs Temp 97.6 F 03/31/20 08:00 Pulse 107 H 03/31/20 08:00 Resp 18 03/31/20 08:00 BP 106/69 03/31/20 08:00 Pulse Ox 87 L 03/31/20 09:32 Intake & Output 03/30/20 03/31/20 03/31/20 18:59 06:59 18:59 Intake Total 700 100 Output Total 665 350 200 Balance 35 -350 -100 Weight 76.5 kg 73.1 kg Intake: IV 600 100 0.9 NaCl- 500 Zosyn 100 100 Oral 100 Output: Urine 665 350 200 Other: Voiding Method Indwelling Catheter Urinal - Exam General appearance: The patient is alert, oriented, in no acute distress. HET: Head is normocephalic and atraumatic. Conjunctiva pink. Sclera anicteric. Neck: Supple without lymphadenopathy. Abdomen: Soft, nontender, nondistended with normal bowel sounds. No guarding or rigidity. Extremities: Mildly jaundiced. No pedal edema Neurological: No focal deficits. Alert and oriented 3. - Labs CBC & Chem 7: 03/31/20 06:27 03/31/20 06:27 Labs: Abnormal Lab Results - Last 24 Hours (Table) 03/29/20 03/31/20 03/31/20 Range/Units 03:22 06:27 06:27 WBC 12.4 H (3.8-10.6) k/uL RBC 4.21 L (4.30-5.90) m/uL Hgb 11.0 L (13.0-17.5) gm/dL Hct 35.3 L (39.0-53.0) % RDW 17.8 H (11.5-15.5) % Neutrophils # (Manual) 10.17 H (1.3-7.7) k/uL Lymphocytes # (Manual) 0.62 L (1.0-4.8) k/uL Monocytes # (Manual) 1.36 H (0-1.0) k/uL PT 17.3 H (9.0-12.0) sec INR 1.7 H (<1.2) APTT 39.7 H (22.0-30.0) sec Sodium (137-145) mmol/L BUN (9-20) mg/dL Creatinine (0.66-1.25) mg/dL Glucose (74-99) mg/dL Calcium (8.4-10.2) mg/dL Total Bilirubin (0.2-1.3) mg/dL AST (17-59) U/L ALT (4-49) U/L Alkaline Phosphatase (38-126) U/L Total Protein (6.3-8.2) g/dL Albumin (3.5-5.0) g/dL Albumin (PEP) 2.61 L (3.80-4.90) g/dL Fojoq-5-Jnxgcxhpl 0.52 L (0.60-1.00) g/dL 03/31/20 Range/Units 06:27 WBC (3.8-10.6) k/uL RBC (4.30-5.90) m/uL Hgb (13.0-17.5) gm/dL Hct (39.0-53.0) % RDW (11.5-15.5) % Neutrophils # (Manual) (1.3-7.7) k/uL Lymphocytes # (Manual) (1.0-4.8) k/uL Monocytes # (Manual) (0-1.0) k/uL PT (9.0-12.0) sec INR (<1.2) APTT (22.0-30.0) sec Sodium 133 L (137-145) mmol/L BUN 25 H (9-20) mg/dL Creatinine 1.37 H (0.66-1.25) mg/dL Glucose 141 H (74-99) mg/dL Calcium 7.3 L (8.4-10.2) mg/dL Total Bilirubin 5.6 H (0.2-1.3) mg/dL AST 459 H (17-59) U/L ALT 582 H (4-49) U/L Alkaline Phosphatase 188 H (38-126) U/L Total Protein 5.8 L (6.3-8.2) g/dL Albumin 2.8 L (3.5-5.0) g/dL Albumin (PEP) (3.80-4.90) g/dL Ctszq-3-Wnxciuphs (0.60-1.00) g/dL Microbiology - Last 24 Hours (Table) 03/26/20 13:01 Blood Culture - Preliminary Blood No Growth after 96 hours Assessment and Plan (1) Transaminitis Narrative/Plan: This is s a patient who presented to the hospital with worsening shortness of breath diffuse abdominal pain associated with nausea, vomiting and not feeling well since November of last year. He's had a weight loss of approximately 20 pounds. At the time of admission to the hospital he was noted to have leukocytosis and increased serum transaminases as well as bilirubin up to 3.8 area computed tomography scan and ultrasound showed no evidence of gallstones or biliary ductal dilation. He has a long-standing history of ischemic cardiomyopathy with an ejection fraction of 30% and status post AICD implantation. He was also noted to have lactic acidosis at presentation. The clinical picture is more consistent with a global hypoperfusion causing ischemic hepatitis impossibility of small bowel ischemia cannot be excluded. His BUN and creatinine were also elevated consistent with hypoperfusion state. The patient has been started on Zosyn. Possible cirrhosis of the liver based on imaging studies, the CAT scan showed nodular appearing liver which appears to be decompensated with the current clinical situation. Daily LFTs, LFTs continue to trend down. Total BILI and line phosphatase slight increase. Patient also states he has been a daily drinker of 2-3 beers a day for several years, therefore we will order the ultrasound of the liver. Current Visit: Yes Status: Acute Priority: High Code(s): R74.01 - ELEVATION OF LEVELS OF LIVER TRANSAMINASE LEVELS SNOMED Code(s): 670886434 (2) Abdominal pain Current Visit: Yes Status: Acute Code(s): R10.9 - UNSPECIFIED ABDOMINAL PAIN SNOMED Code(s): 58625652 (3) Ascites Narrative/Plan: Small amount of ascites noted on CT of the abdomen Current Visit: Yes Status: Acute Code(s): R18.8 - OTHER ASCITES SNOMED Code(s): 889446226 (4) Afib Narrative/Plan: Patient has a history of atrial fibrillation and was on several toe, it is currently on hold. INR is significantly elevated Current Visit: No Status: Acute Code(s): I48.91 - UNSPECIFIED ATRIAL FIBRILLATION SNOMED Code(s): 13418253 Plan: 1. Continue supportive and symptomatic care 2. Continue with recommendations from surgery, cardiology, and nephrology 3. Diet per surgery recommendations 4. Continue with broad-spectrum antibiotics 5. Avoid hepatotoxic medications, including statins for now. 6. Daily CBC, INR, CMP 7. Liver ultrasound ordered Dr. Haque I agree with the dictator's note, documented as a scribe by Yvrose Duke.
--- NOTE | 2020-03-31 19:18 | P.PN ---
Progress Note - Text Progress Note Date: 03/31/20 Chief Complaint: Abdominal pain History of presenting complaint: This is a pleasant 69-year-old patient of Dr. Cheatham. Chronic stable medical conditions include coronary artery disease, hyperlipidemia, multiple MIs in the past, coronary stent, peptic ulcer disease, ischemic cardiomyopathy, previous V. tach ablation, atrial fibrillation,. 2 weeks ago patient was admitted with CHF exacerbation. Cardiac catheterization [March 14] showed chronically occluded RCA with extensive [id number] collaterals. Also some focal obstructive lesion in the circumflex. Creatinine then was 1.16. Patient now presents with having nausea vomiting "a few days. Also having dif fuse abdominal pain. Appetite is rather poor. Has not had a bowel movement for 5 days. Shortness of breath. Denies any fever and chills. Occasional cough. Some edema. Has orthopnea. Admitted with suspected ischemic colitis, causing resultant hypotension, severe lactic acidosis ischemic hepatitis, abnormal regulation profile with a contribution from xarelto, pulmonary edema with acute CHF exacerbation. Patient was given vitamin K put on IV dobutamine, bronchodilators will be ICU. Started on IV Zosyn. Today-moved to the medical floor. Feeling better. Eating about 25% of his meals. Review of systems: Was done for constitutional, cardiovascular, GI, pulmonary. relevant finding as above Active Medications Albuterol/Ipratropium (Ipratropium-Albuterol 3 Ml Neb) 3 ml INHALATION RT-QID BRENT Last Admin: 03/31/20 15:11 Dose: 3 ml Documented by: Benzocaine/Menthol (Benzocaine/Menthol Lozeng 1 Each Lozenge) 1 each MUCOUS MEM Q4HR PRN PRN Reason: Sore Throat Last Admin: 03/28/20 22:36 Dose: 1 each Documented by: Furosemide (Furosemide 10 Mg/Ml 4 Ml Vial) 40 mg IV Q12HR BRENT Hydromorphone HCl (Hydromorphone 0.5 Mg/0.5 Ml Syringe) 0.5 mg IVP Q4HR PRN PRN Reason: Pain Last Admin: 03/26/20 14:42 Dose: 0.5 mg Documented by: Piperacillin Sod/Tazobactam (Sod 3.375 gm/ Sodium Chloride) 100 mls @ 200 mls/hr IVPB Q8HR BRENT Last Admin: 03/31/20 16:46 Dose: 200 mls/hr Documented by: Metoprolol Succinate (Metoprolol Succinate (Er) 25 Mg Tab.Er.24h) 25 mg PO DAILY [facility] Last Admin: 03/31/20 08:11 Dose: 25 mg Documented by: Midodrine (Midodrine 5 Mg Tab) 10 mg PO AC-TID [facility] Last Admin: 03/31/20 16:46 Dose: 10 mg Documented by: Pantoprazole Sodium (Pantoprazole 40 Mg Tablet) 40 mg PO BID [facility] Last Admin: 03/31/20 08:08 Dose: 40 mg Documented by: Prochlorperazine Edisylate (Prochlorperazine Inj 10 Mg/2 Ml Vial) 10 mg IVP Q6H PRN PRN Reason: Nausea And Vomiting Last Admin: 03/28/20 22:29 Dose: 10 mg Documented by: Past medical history to include: Coronary artery disease with stent, multiple MIs, hyperlipidemia, peptic ulcer disease, CHF EF 35-40%, ventricular tachycardia ablation, AICD placement, chronic atrial fibrillation, Social history: Lives alone. Smoking a pack a day closed to 59 years, takes about 6 pack a week. 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 Conjunctiva normal. HEENT: External appearance of nose and ears normal, oral cavity grossly normal. NECK: JVD possibly raised; masses not palpable. HEART: Irregular heart sounds; edema present. LUNGS: Respiratory rate increased, decreased breath sounds. ABDOMEN: Soft, no tenderness, no guarding rigidity, liver spleen not palpable, no masses palpable. PSYCH: Alert and oriented x3; mood and affect better INVESTIGATIONS, reviewed in the clinical context: March 31: White count 12.4 hemoglobin 11 platelets 158 pro-time 17.3 PTT 39.7 potassium 3.6 creatinine 1.37 bilirubin 5.6 AST 459 ALT 582 March 30: White count 11.5 hemoglobin 11.2 ProTime 22.8 PTT 45.0 sodium 133 potassium 3.6 BUN 42 creatinine 2.47 AST 1180 ALT 902 albumin 2.6 March 29: White count 13.2 hemoglobin 11.2 platelets 215 INR 4.0 PTT 49.1 potassium 4.2 bun 56 creatinine 3.38AST 2488 ALT 1242 alpha-1 antitrypsin normal at 181 70+ been normal at 31.1 tumor marker AFP test 2.5 Acute hepatitis panel including hepatitis A IgM antibody, hepatitis B surface antigen, hepatitis B core IgM antibody, hepatitis C IgG antibody all nonreactive. In a screen negative March 28: White count 19.7 hemoglobin 10.7 platelets 254 ProTime 89.3 INR 9.1 PTT 55.2 sodium 131 potassium 5.1 bun 47 creatinine 3.37 calcium 6.3 bilirubin 5 3.6 AST 07/22/2006 ALT 1695 troponin I 0.086, 0.068 pro-calcitonin 1.96 White count 29.2 hemoglobin 12.2 platelets 327 ProTime greater than 10 Potassium 6 bicarbonate 17 bun 29 creatinine 2.58 total bilirubin 3.8 AST 7392 ALT 1842 Admission testing: White count 25.4 hemoglobin 13.6 platelets 384 Sodium 135 potassium 5.7 creatinine 1.61 lactic 10.4 total bilirubin 3.2 AST 1472 ALT 537 Coronavirus-P/Cr-not detected Computed tomography scan of the abdomen pelvis-moderate size bilateral pleural effusion and compression atelectasis, Harp[facility] of the colon the right colon contracted gallbladder Ultrasound-contracted gallbladder EKG tracing personally reviewed by me-atrial fibrillation rate of 91 Chest x-ray film-pleural effusion atelectasis Previous testing: Hemoglobin 11.6 on March 14 Creatinine 1.16 on March 14 Assessment: -acute ischemic colitis given that the patient has got significant vascular disease, infective component cannot be ruled out-improving -Acute ischemic hepatitis, severe from CHF and hypertension- improving -Abnormal coagulation profile with a combination of patient poor oral intake and also being on an xarelto and also vitamin K received 3 doses of vitamin K. -AICD -Coronary artery disease with prior history of stents -Acute on chronic congestive heart failure exacerbation from systolic dysfunction EF 30-35%-better -Acute hypoxic respiratory failure from pulmonary edema on 2 L of nasal cannula- improving -Moderate tricuspid regurgitation -Hyperlipidemia -Persistent atrial fibrillation/flutter-rate controlled -Chronic nicotine dependence patient active cigarette smoker -Acute kidney injury likely ATN from cardiorenal syndrome, the possible contribution from contrast-induced nephropathy from cardiac catheterization and IV contrast with computed tomography slow improvement -Bilateral pleural effusion from CHF with a prior history of thoracentesis -Metabolic acidosis multifactorial -Hyperkalemia from renal failure-improved -Troponin leak from acute kidney injury and hemodynamic instability Plan: Patient currently on DuoNeb, Toprol-XL, midodrine, IV Zosyn. IV Lasix was added. Follow labs closely. Increase activity.
[2020-03-31] MEDS: FUROSEMIDE 10 MG/ML 4 ML VIAL IV SCH (20:52)
[2020-04-01] MEDS: MIDODRINE 5 MG TAB PO SCH ×3 (06:48→17:08)
[2020-04-01 07:55] LABS: Anisocytosis Slight; HGB 11.9 gm/dL (13.0-17.5); Hypochromasia Moderate; MCHC 32.2 g/dL (31.0-37.0); MCV 83.9 fL (80.0-100.0); Mean Platelet Volume 9.5; Platelet Count 155 k/uL (150-450); Poikilocytosis Slight; RBC 4.41 m/uL (4.30-5.90); RDW 17.9 % (11.5-15.5); WBC 13.9 k/uL (3.8-10.6)
[2020-04-01 07:58] LABS: INR 1.6 (<1.2); Prothrombin Time 16.4 sec (9.0-12.0)
[2020-04-01] MEDS: PANTOPRAZOLE 40 MG TABLET PO SCH ×2 (08:22→20:19)
[2020-04-01] MEDS: METOPROLOL SUCCINATE (ER) 25 MG TAB.ER.24H PO SCH (08:22)
[2020-04-01] MEDS: PIPERACILLIN-TAZOBACTAM 3.375 GM in SODIUM CHLORIDE 0.9% 100 ML IVPB SCH ×3 (08:23→23:17)
[2020-04-01] MEDS: FUROSEMIDE 10 MG/ML 4 ML VIAL IV SCH ×2 (08:23→20:19)
[2020-04-01] MEDS: IPRATROPIUM-ALBUTEROL 3 ML NEB INHALATION SCH ×4 (08:24→19:55)
[2020-04-01 08:27] LABS: Calcium 7.8 mg/dL (8.4-10.2); Potassium 3.9 mmol/L (3.5-5.1); Total Bilirubin 5.5 mg/dL (0.2-1.3); Total Protein 6.3 g/dL (6.3-8.2)
[2020-04-01 09:08] LABS: Band Neutrophils % 1 %; Lymphocytes # (M) 1.81 k/uL (1.0-4.8); Monocytes # (M) 1.95 k/uL (0-1.0); Neutrophils % (M) 72 %; Nucleated Red Blood Cells 0 /100 WBC (0-0); Total Cells Counted 100
[2020-04-01 09:10] LABS: Crenated RBC Present; RBC Fragments Present
--- NOTE | 2020-04-01 09:16 | US ---
EXAMINATION TYPE: US liver DATE OF EXAM: 04/01/2020 COMPARISON: Gallbladder US 03/26/2020 CLINICAL HISTORY: elevated LFTs, Hx ETOH abuse. Abnormal labs EXAM MEASUREMENTS: Liver Length: 12.7 cm Gallbladder Wall: 0.5 cm CBD: 0.4 cm Right Kidney: 11.5 x 5.0 x 5.6 cm Pancreas: Obscured by bowel gas Liver: Lobulated contour, small in size with coarse echotexture Gallbladder: Wall thickened as seen on previous Evidence for sonographic Lovelace's sign: No CBD: wnl Right Kidney: wnl Please note scant amount of ascites adjacent to liver, however no sizeable fluid pocket within righ t and left flanks Large right pleural effusion noted incidentally IMPRESSION: Correlate for hepatocellular disease, cirrhosis. Pleural effusion, ascites is minimal. Th ickened gallbladder wall is again noted without stones within the gallbladder, nonspecific
--- NOTE | 2020-04-01 10:07 | P.PN ---
Subjective Patient is a pleasant 69-year-old male with known history of ischemic cardiomyopathy of around 30-35% is admitted for acute respiratory failure card iogenic shock from congestive heart failure exacerbation patient also has renal dysfunction from prerenal azotemia from congestive heart failure, patient to creatinine continue to improve. There was initial concern about contrast nephropathy although patient doesn't appear to have contrast nephropathy at this time. Patient has an AICD patient creatinine continue to improve patient also has hepatic congestion leading to elevated liver enzymes patient had an ultrasound of the liver which showed hepatocellular disease. Patient is presently not on any anticoagulation patient does have history of atrial fibrillation was on anticoagulation as an outpatient. Patient also has severe mitral regurgitation probably 1 A. fib probably will be discharged on Coumadin. Patient was given vitamin K because of significantly elevated INR. Patient is also on Zosyn because of her elevated lactic acid there was a concern about ischemic colitis because of which patient is on Zosyn patient has elevated white blood cell count although there is no clear evidence of ischemic colitis patient had elevated lactic acid most probably secondary to decreased organ perfusion secondary to his severe CHF and collagen injection. Patient also will be continued on antibiotics for now. There is no evidence of any other infection at this time. She does presently on 2 L of oxygen still short of breath Constitutional: Denied any fatigue denied any fever. Cardio vascular: denied any chest pain, palpitations Gastrointestinal denied any nausea vomiting Pulmonary: As mentioned above Neurologic denied any new focal deficits All inpatient medications were reviewed and appropriate changes in these medications as dictated in the interval history and assessment and plan. Objective - Vital Signs Vital signs: Vital Signs Temp 98.1 F 04/01/20 08:00 Pulse 108 H 04/01/20 08:37 Resp 18 04/01/20 08:00 BP 105/66 04/01/20 08:00 Pulse Ox 95 04/01/20 08:00 Intake & Output 03/31/20 04/01/20 04/01/20 18:59 06:59 18:59 Intake Total 1160 25 Output Total 1300 500 125 Balance -140 -500 -100 Intake: IV 200 25 Zosyn 200 25 Oral 960 Output: Urine 1300 500 125 Other: Voiding Method Urinal # Voids 2 2 - Exam PHYSICAL EXAMINATION: GENERAL: The patient is alert and oriented x3, not in any acute distress. Well developed, well nourished. HEENT: Pupils are round and equally reacting to light. EOMI. No scleral icterus. No conjunctival pallor. Normocephalic, atraumatic. No pharyngeal erythema. No thyromegaly. CARDIOVASCULAR: S1 and S2 present. No murmurs, rubs, or gallops. Still has elevated JVD PULMONARY: Chest is clear to auscultation, no wheezing or crackles. ABDOMEN: Soft, nontender, nondistended, normoactive bowel sounds. No palpable organomegaly. MUSCULOSKELETAL: No joint swelling or deformity. EXTREMITIES: No cyanosis, clubbing, or pedal edema. NEUROLOGICAL: Gross neurological examination did not reveal any focal deficits. SKIN: No rashes. - Labs CBC & Chem 7: 04/01/20 07:34 04/01/20 07:34 Labs: Abnormal Lab Results - Last 24 Hours (Table) 04/01/20 04/01/20 04/01/20 Range/Units 07:34 07:34 07:34 WBC 13.9 H (3.8-10.6) k/uL Hgb 11.9 L (13.0-17.5) gm/dL Hct 37.0 L (39.0-53.0) % RDW 17.9 H (11.5-15.5) % Neutrophils # (Manual) 10.10 H (1.3-7.7) k/uL Monocytes # (Manual) 1.95 H (0-1.0) k/uL PT 16.4 H (9.0-12.0) sec INR 1.6 H (<1.2) APTT 34.0 H (22.0-30.0) sec Sodium 133 L (137-145) mmol/L Chloride 97 L (98-107) mmol/L BUN 21 H (9-20) mg/dL Glucose 101 H (74-99) mg/dL Calcium 7.8 L (8.4-10.2) mg/dL Total Bilirubin 5.5 H (0.2-1.3) mg/dL AST 235 H (17-59) U/L ALT 443 H (4-49) U/L Alkaline Phosphatase 205 H (38-126) U/L Albumin 3.0 L (3.5-5.0) g/dL Microbiology - Last 24 Hours (Table) 03/26/20 13:01 Blood Culture - Preliminary Blood No Growth after 120 hours Assessment and Plan Plan: -Acute hypoxic respiratory failure secondary to CHF exacerbation -Congenic shock: Improving continue with IV Lasix -Elevated INR secondary to hepatic congestion poor by mouth intake and Xarelto of INR is about 1.5 today probably will need to start him on anticoagulation will discuss with cardiology -Congestive heart failure chronic systolic dysfunction with acute exacerbation patient has an AICD in place -Coronary artery disease with ischemic cardiomyopathy -Elevated liver enzymes secondary to hepatic congestion -Leukocytosis reactive without any clear evidence of infection possibility of ischemic colitis is low for now will continue with antibiotics -Severe mitral regurgitation -Hyperlipidemia -Persistent A. fib presently rate controlled continue with present rate control medications -Nicotine use: Counseling was provided - acute renal failure:: Secondary to prerenal azotemia from congestive heart failure exacerbation -Bilateral pleural effusions status post thoracentesis and pleural effusions are secondary to serious chest -Elevated troponins secondary to acute renal failure and CHF
[2020-04-01] MEDS ORDERED: IV FLUID CONTINUATION 400 ML IV ONE (10:55)
[2020-04-01] MEDS ORDERED: MIDAZOLAM 2 MG/2 ML VIAL IV ONE (11:12)
[2020-04-01] MEDS ORDERED: fentaNYL (PF) 50 MCG/ML 2 ML AMP IV ONE (11:12)
[2020-04-01] MEDS ORDERED: LIDOCAINE 1% INJ 10MG/ML (20 ML MDV) SQ ONE (11:13)
[2020-04-01] MEDS ORDERED: IOPAMIDOL-250 100ML BTL INTRAARTER ONE (11:38)
--- NOTE | 2020-04-01 13:13 | IR ---
Fluoroscopy HISTORY: Pain in abdomen 2.3 minutes fluoroscopy time supplied to the referring clinician. 78 intraoperative C-arm images doc ument the procedure. See dictated report from cardiology.
--- NOTE | 2020-04-01 15:07 | P.PCN ---
Description of Procedure: PROCEDURES PERFORMED: Mesenteric angiography, celiac, SMA and DIMITRIS angiography INDICATION: Abdominal pain, nausea, weight loss, CTA showing concern of obstructive mesenteric arterial disease, possible chronic mesenteric ischemia HISTORY: Patient is a pleasant 70-year-old male with a history of CAD, ischemic cardiomyopathy EF 25-30%, VT with AICD and prior VT ablation as well as AICD discharges, moderate to severe mitral regurgitation, CKD, anemia, paroxysmal atrial fibrillation. He has been having issues of abdominal pain since approximately November. He states he has not been able to eat much solid food secondary to abdominal pain he gets when he eats food and therefore has lost approximately 20-30 pounds since November. He presented with sepsis with shock type picture including shock liver, lactic acidosis and acute kidney injury. With supportive care he improved. CTA abdomen and pelvis show concern of diminutive celiac artery and concern of mesenteric ischemia and therefore recommendation was for mesenteric angiography to rule out chronic mesenteric ischemia. CONSENT:I have discussed the risks, benefits and alternative therapies for the above-mentioned procedure and for both sedation/analgesia as well as necessary blood product administration, if indicated, as they pertain to this patient. The patient has indicated understanding and acceptance of the risks and procedures discussed. PROCEDURE: After the risks, benefits and alternatives of the above mentioned procedure explained in detail with the patient, informed consent was obtained. Patient was taken to the catheterization lab and prepped and draped in usual fashion. 1% lidocaine was used to anesthetize the right femoral artery using modified Seldinger technique, ultrasound guidance and micropuncture technique. A 6-Egyptian sheath was placed in the right femoral artery using modified Seldinger technique. A 6-Egyptian DIMITRIS guide was easily engage the celiac artery selectively. There was actually full opacification of the celiac, SMA and DIMITRIS in multiple images were obtained with DSA. Due to CKD no abdominal angiogram was performed however both renal arteries were opacified without any apparent renal artery stenosis. There is no significant stenosis and therefore the catheter was removed. A right femoral angiogram was performed with somewhat smaller size of right femoral artery. Therefore the sheath was pulled and manual pressure was held with hemostasis achieved. The patient tolerated the procedure well. Patient was transported back to the post catheterization holding area in stable condition. Conscious Sedation: Patient was monitored under the direct supervision of vision of myself for conscious sedation using Versed and fentanyl for a total duration of 21 minutes HEMODYNAMICS: Aorta: 122/68 Celiac artery: Widely patent with mild proximal 20-30% stenosis. The celiac artery gives rise to the splenic artery and hepatic artery without significant stenosis. SMA: No significant stenosis noted. DIMITRIS: No significant stenosis FINAL IMPRESSION: 1. Mild disease of the celiac artery however no significant other stenosis of the SMA and DIMITRIS and do not suspect PAD with chronic mesenteric ischemia PLAN: 1. Aggressive risk factor modification per most recent ACC/AHA guidelines. 2. Further workup of other causes of abdominal pain, weight loss and decreased appetite.
--- NOTE | 2020-04-01 15:26 | P.PN ---
Subjective Progress Note Date: 04/01/20 Principal diagnosis: Elevated LFTs and jaundice, abdominal pain The patient was seen and examined at the bedside. He went for a cardiac cath today with pending results. He states he has no abdominal pain, nause, or vomiting. Overall feeling well. Objective - Vital Signs Vital signs: Vital Signs Temp 98.3 F 04/01/20 12:43 Pulse 84 04/01/20 14:00 Resp 18 04/01/20 14:00 BP 104/65 04/01/20 14:00 Pulse Ox 94 L 04/01/20 14:00 Intake & Output 03/31/20 04/01/20 04/01/20 18:59 06:59 18:59 Intake Total 1160 365 Output Total 1300 500 125 Balance -140 -500 240 Weight 73.1 kg Intake: IV 200 125 Zosyn 200 25 Oral 960 240 Output: Urine 1300 500 125 Other: Voiding Method Urinal # Voids 2 2 - Exam General appearance: The patient is alert, oriented, in no acute distress. HET: Head is normocephalic and atraumatic. Conjunctiva pink. Sclera anicteric. Neck: Supple without lymphadenopathy. Abdomen: Soft, nontender, nondistended with normal bowel sounds. No guarding or rigidity. Extremities: Mildly jaundiced. No pedal edema Neurological: No focal deficits. Alert and oriented 3. - Labs CBC & Chem 7: 04/01/20 07:34 04/01/20 07:34 Labs: Abnormal Lab Results - Last 24 Hours (Table) 04/01/20 04/01/20 04/01/20 Range/Units 07:34 07:34 07:34 WBC 13.9 H (3.8-10.6) k/uL Hgb 11.9 L (13.0-17.5) gm/dL Hct 37.0 L (39.0-53.0) % RDW 17.9 H (11.5-15.5) % Neutrophils # (Manual) 10.10 H (1.3-7.7) k/uL Monocytes # (Manual) 1.95 H (0-1.0) k/uL PT 16.4 H (9.0-12.0) sec INR 1.6 H (<1.2) APTT 34.0 H (22.0-30.0) sec Sodium 133 L (137-145) mmol/L Chloride 97 L (98-107) mmol/L BUN 21 H (9-20) mg/dL Glucose 101 H (74-99) mg/dL Calcium 7.8 L (8.4-10.2) mg/dL Total Bilirubin 5.5 H (0.2-1.3) mg/dL AST 235 H (17-59) U/L ALT 443 H (4-49) U/L Alkaline Phosphatase 205 H (38-126) U/L Albumin 3.0 L (3.5-5.0) g/dL Microbiology - Last 24 Hours (Table) 03/26/20 13:01 Blood Culture - Preliminary Blood No Growth after 120 hours Assessment and Plan (1) Transaminitis Narrative/Plan: This is s a patient who presented to the hospital with worsening shortness of breath diffuse abdominal pain associated with nausea, vomiting and not feeling well since November of last year. He's had a weight loss of approximately 20 pounds. At the time of admission to the hospital he was noted to have leukocytosis and increased serum transaminases as well as bilirubin up to 3.8 area computed tomography scan and ultrasound showed no evidence of gallstones or biliary ductal dilation. He has a long-standing history of ischemic cardiomyopathy with an ejection fraction of 30% and status post AICD implantation. He was also noted to have lactic acidosis at presentation. The clinical picture is more consistent with a global hypoperfusion causing ischemic hepatitis impossibility of small bowel ischemia cannot be excluded. His BUN and creatinine were also elevated consistent with hypoperfusion state. The patient has been started on Zosyn. Possible cirrhosis of the liver based on imaging studies, the CAT scan showed nodular appearing liver which appears to be decompensated with the current clinical situation. Daily LFTs, LFTs continue to trend down. Total BILI and line phosphatase slight increase. Patient also states he has been a daily drinker of 2-3 beers a day for several years, therefore we will order the ultrasound of the liver. Current Visit: Yes Status: Acute Priority: High Code(s): R74.01 - ELEVATION OF LEVELS OF LIVER TRANSAMINASE LEVELS SNOMED Code(s): 895210375 (2) Abdominal pain Current Visit: Yes Status: Acute Code(s): R10.9 - UNSPECIFIED ABDOMINAL PAIN SNOMED Code(s): 75224226 (3) Ascites Narrative/Plan: Small amount of ascites noted on CT of the abdomen Current Visit: Yes Status: Acute Code(s): R18.8 - OTHER ASCITES SNOMED Code(s): 754639553 (4) Afib Narrative/Plan: Patient has a history of atrial fibrillation and was on several toe, it is currently on hold. INR is significantly elevated Current Visit: No Status: Acute Code(s): I48.91 - UNSPECIFIED ATRIAL FIBRILLATION SNOMED Code(s): 23401472 Plan: 1. Continue supportive and symptomatic care 2. Continue with recommendations from surgery, cardiology, and nephrology 3. Diet per surgery recommendations 4. Continue with broad-spectrum antibiotics 5. Avoid hepatotoxic medications, including statins for now. 6. Daily CBC, CMP 7. Liver ultrasound ordered and reviewed Dr. Haque I agree with the dictator's note, documented as a scribe by Yvrose Duke.
--- NOTE | 2020-04-01 15:38 | PN ---
PROGRESS NOTE The patient is seen for followup for acute kidney injury. He is currently comfortable. Patient denies any significant complaints. Currently he is being diuresed. Renal function has improved significantly with creatinine down to 1.19 from 3.38 at peak. PHYSICAL EXAMINATION: On examination today, blood pressure was 105/66, heart rate 84 per minute. He is afebrile. EXAMINATION OF THE HEART: S1, S2. EXAMINATION OF THE LUNGS: Decreased breath sounds at bases. Minimal basal crackles heard. Abdomen is soft, nontender. Examination of lower extremities shows edema 1+ bilaterally. [employer] exam grossly intact. LABS: Labs show sodium of 133, potassium 3.9, chloride 97, BUN 21, creatinine 1.19, hemoglobin 11.9 g/dL. ASSESSMENT: 1. Acute kidney injury, acute tubular necrosis, ischemic and currently improved. 2. Volume overload, maintained on IV Lasix. 3. Cardiomyopathy, ejection fraction 35%, status post dobutamine on initial admission. 4. Lactic acidosis secondary to hypotension hypoperfusion and sepsis, now improved. 5. Chronic atrial fibrillation. 6. Moderate to severe tricuspid regurgitation. PLAN: Maintain Lasix. Okay to proceed with cardiac catheterization from Nephrology standpoint. Continue to monitor electrolytes and renal function. MMODL / IJN: [id number] /
--- NOTE | 2020-04-01 20:33 | P.PN ---
Subjective Progress Note Date: 04/01/20 Objective - Vital Signs Vital signs: Vital Signs Temp 98.3 F 04/01/20 16:29 Pulse 80 04/01/20 20:04 Resp 18 04/01/20 16:29 BP 98/65 04/01/20 16:29 Pulse Ox 95 04/01/20 16:29 Intake & Output 04/01/20 04/01/20 04/02/20 06:59 18:59 06:59 Intake Total 865 Output Total 500 885 Balance -500 -20 Weight 73.1 kg Intake: IV 385 0.9 NaCl- 160 Zosyn 125 Oral 480 Output: Urine 500 885 Other: Voiding Method Urinal # Voids 2 - Exam - Constitutional General appearance: Present: cooperative, no acute distress, thin - EENT Eyes: Present: EOMI, scleral icterus Dry mucus Membranes ENT: Present: hearing grossly normal - Respiratory Respiratory: bilateral: diminished bilateral bases (Weak/shallow respiratory effort) Nasal Canula - Cardiovascular Heart sounds: normal: S1, S2 - Peripheral edema leg Peripheral Edema: bilateral: trace - Neurologic Neurologic: non-focal - Musculoskeletal Musculoskeletal: Present: generalized weakness, still very weak - Psychiatric Psychiatric: Present: A&O x's 3, appropriate affect, intact judgment & insight - Labs CBC & Chem 7: 04/01/20 07:34 04/01/20 07:34 Labs: Abnormal Lab Results - Last 24 Hours (Table) 04/01/20 04/01/20 04/01/20 Range/Units 07:34 07:34 07:34 WBC 13.9 H (3.8-10.6) k/uL Hgb 11.9 L (13.0-17.5) gm/dL Hct 37.0 L (39.0-53.0) % RDW 17.9 H (11.5-15.5) % Neutrophils # (Manual) 10.10 H (1.3-7.7) k/uL Monocytes # (Manual) 1.95 H (0-1.0) k/uL PT 16.4 H (9.0-12.0) sec INR 1.6 H (<1.2) APTT 34.0 H (22.0-30.0) sec Sodium 133 L (137-145) mmol/L Chloride 97 L (98-107) mmol/L BUN 21 H (9-20) mg/dL Glucose 101 H (74-99) mg/dL Calcium 7.8 L (8.4-10.2) mg/dL Total Bilirubin 5.5 H (0.2-1.3) mg/dL AST 235 H (17-59) U/L ALT 443 H (4-49) U/L Alkaline Phosphatase 205 H (38-126) U/L Albumin 3.0 L (3.5-5.0) g/dL Microbiology - Last 24 Hours (Table) 03/26/20 13:01 Blood Culture - Final Blood No Growth after 144 hours Assessment and Plan Plan: Assessment and Plan Coagulopathy - Liver Decompensation- Suspect secondary to shock liver from hypotensive episode - Underlying cardiovascular disease - Was on anticoagulation - Bilirubin trending up, concern for worsening liver failur - Vitamin K was given completed 03/31 - Improved coags, continue close monitoring - Daily CBC Current Visit: Yes Status: Acute Priority: High Code(s): D68.9 - COAGULATION DEFECT, UNSPECIFIED SNOMED Code(s): 61336033 Transaminitis - Worsening bilirubin, improving liver enzymes, concern of worsening liver decompensation - Monitor Daily Current Visit: Yes Status: Acute Priority: High Code(s): R74.01 - ELEVATI ON OF LEVELS OF LIVER TRANSAMINASE LEVELS SNOMED Code(s): 812634515 Physician Attest: I have completed the full history and physical and developed the above impression and plan, agree with above dictation by FOX RAISER Dolly Khan, dictated as a scribe
[2020-04-02] MEDS: MIDODRINE 5 MG TAB PO SCH ×3 (06:52→17:13)
[2020-04-02] MEDS: IPRATROPIUM-ALBUTEROL 3 ML NEB INHALATION SCH ×4 (07:38→21:08)
[2020-04-02 07:52] LABS: INR 1.6 (<1.2); Partial Thromboplastin Time 32.5 sec (22.0-30.0); Prothrombin Time 15.6 sec (9.0-12.0)
[2020-04-02 07:57] LABS: Calcium 7.7 mg/dL (8.4-10.2); Potassium 3.6 mmol/L (3.5-5.1); Total Bilirubin 4.5 mg/dL (0.2-1.3); Total Protein 6.3 g/dL (6.3-8.2)
[2020-04-02 08:10] LABS: Anisocytosis Slight; HCT 37.3 % (39.0-53.0); HGB 11.6 gm/dL (13.0-17.5); Hypochromasia Marked; MCH 26.6 pg (25.0-35.0); MCHC 31.2 g/dL (31.0-37.0); MCV 85.2 fL (80.0-100.0); Mean Platelet Volume 10.1; Platelet Count 160 k/uL (150-450); Poikilocytosis Slight; RBC 4.38 m/uL (4.30-5.90); RDW 18.3 % (11.5-15.5); WBC 14.9 k/uL (3.8-10.6)
--- NOTE | 2020-04-02 08:18 | P.PN ---
Subjective Patient is a pleasant 69-year-old male with known history of ischemic cardiomyopathy of around 30-35% is admitted for acute respiratory failure card iogenic shock from congestive heart failure exacerbation patient also has renal dysfunction from prerenal azotemia from congestive heart failure, patient to creatinine continue to improve. There was initial concern about contrast nephropathy although patient doesn't appear to have contrast nephropathy at this time. Patient has an AICD patient creatinine continue to improve patient also has hepatic congestion leading to elevated liver enzymes patient had an ultrasound of the liver which showed hepatocellular disease. Patient is presently not on any anticoagulation patient does have history of atrial fibrillation was on anticoagulation as an outpatient. Patient also has severe mitral regurgitation probably 1 A. fib probably will be discharged on Coumadin. Patient was given vitamin K because of significantly elevated INR. Patient is also on Zosyn because of her elevated lactic acid there was a concern about ischemic colitis because of which patient is on Zosyn patient has elevated white blood cell count although there is no clear evidence of ischemic colitis patient had elevated lactic acid most probably secondary to decreased organ perfusion secondary to his severe CHF and collagen injection. Patient also will be continued on antibiotics for now. There is no evidence of any other infection at this time. presently on 2 L of oxygen still short of breath 04/02/2020 Patient is still complaining of shortness of breath and patient is presently on 1.3 L of oxygen. Liver labs and creatinine continue to improve JVD did improve and is bit up compared to couple days ago but patient is already on empiric antibiotics Zosyn which will be continued for now Constitutional: Denied any fatigue denied any fever. Cardio vascular: denied any chest pain, palpitations Gastrointestinal denied any nausea vomiting Pulmonary: As mentioned above Neurologic denied any new focal deficits All inpatient medications were reviewed and appropriate changes in these medications as dictated in the interval history and assessment and plan. Objective - Vital Signs Vital signs: Vital Signs Temp 97.7 F 04/02/20 04:00 Pulse 84 04/02/20 07:50 Resp 17 04/02/20 04:00 BP 95/54 04/02/20 04:00 Pulse Ox 95 04/02/20 04:00 Intake & Output 04/01/20 04/02/20 04/02/20 18:59 06:59 18:59 Intake Total 865 Output Total 885 1400 Balance Weight 73.1 kg 70.2 kg Intake: IV 385 0.9 NaCl- 160 Zosyn 125 Oral 480 Output: Urine 885 1400 Other: Voiding Method Urinal # Voids 2 - Exam PHYSICAL EXAMINATION: GENERAL: The patient is alert and oriented x3, not in any acute distress. Well developed, well nourished. HEENT: Pupils are round and equally reacting to light. EOMI. No scleral icterus. No conjunctival pallor. Normocephalic, atraumatic. No pharyngeal erythema. No thyromegaly. CARDIOVASCULAR: S1 and S2 present. No murmurs, rubs, or gallops. JVD improved PULMONARY: Chest is clear to auscultation, no wheezing or crackles. ABDOMEN: Soft, nontender, nondistended, normoactive bowel sounds. No palpable organomegaly. MUSCULOSKELETAL: No joint swelling or deformity. EXTREMITIES: No cyanosis, clubbing, or pedal edema. NEUROLOGICAL: Gross neurological examination did not reveal any focal deficits. SKIN: No rashes. - Labs CBC & Chem 7: 04/02/20 07:02 04/02/20 07:02 Labs: Abnormal Lab Results - Last 24 Hours (Table) 04/01/20 04/01/20 04/02/20 Range/Units 07:34 07:34 07:02 WBC (3.8-10.6) k/uL Hgb (13.0-17.5) gm/dL Hct (39.0-53.0) % RDW (11.5-15.5) % Neutrophils # (Manual) 10.10 H (1.3-7.7) k/uL Monocytes # (Manual) 1.95 H (0-1.0) k/uL PT 15.6 H (9.0-12.0) sec INR 1.6 H (<1.2) APTT 32.5 H (22.0-30.0) sec Sodium 133 L (137-145) mmol/L Chloride 97 L (98-107) mmol/L Carbon Dioxide (22-30) mmol/L BUN 21 H (9-20) mg/dL Glucose 101 H (74-99) mg/dL Calcium 7.8 L (8.4-10.2) mg/dL Total Bilirubin 5.5 H (0.2-1.3) mg/dL AST 235 H (17-59) U/L ALT 443 H (4-49) U/L Alkaline Phosphatase 205 H (38-126) U/L Albumin 3.0 L (3.5-5.0) g/dL 04/02/20 04/02/20 Range/Units 07:02 07:02 WBC 14.9 H (3.8-10.6) k/uL Hgb 11.6 L (13.0-17.5) gm/dL Hct 37.3 L (39.0-53.0) % RDW 18.3 H (11.5-15.5) % Neutrophils # (Manual) (1.3-7.7) k/uL Monocytes # (Manual) (0-1.0) k/uL PT (9.0-12.0) sec INR (<1.2) APTT (22.0-30.0) sec Sodium 133 L (137-145) mmol/L Chloride 95 L (98-107) mmol/L Carbon Dioxide 32 H (22-30) mmol/L BUN (9-20) mg/dL Glucose 113 H (74-99) mg/dL Calcium 7.7 L (8.4-10.2) mg/dL Total Bilirubin 4.5 H (0.2-1.3) mg/dL AST 144 H (17-59) U/L ALT 335 H (4-49) U/L Alkaline Phosphatase 207 H (38-126) U/L Albumin 3.0 L (3.5-5.0) g/dL Microbiology - Last 24 Hours (Table) 03/26/20 13:01 Blood Culture - Final Blood No Growth after 144 hours Assessment and Plan Plan: -Acute hypoxic respiratory failure secondary to CHF exacerbation -Congenic shock: Improving continue with IV Lasix -Elevated INR secondary to hepatic congestion poor by mouth intake and Xarelto of INR is about 1.5 today probably will need to start him on anticoagulation . -Congestive heart failure chronic systolic dysfunction with acute exacerbation patient has an AICD in place -Coronary artery disease with ischemic cardiomyopathy -Elevated liver enzymes secondary to hepatic congestion -Leukocytosis reactive without any clear evidence of infection possibility of ischemic colitis is low for now will continue with antibiotics -Severe mitral regurgitation -Hyperlipidemia -Persistent A. fib presently rate controlled continue with present rate control medications -Nicotine use: Counseling was provided - acute renal failure:: Secondary to prerenal azotemia from congestive heart failure exacerbation -Bilateral pleural effusions status post thoracentesis and pleural effusions are secondary to CHF -Elevated troponins secondary to acute renal failure and CHF
[2020-04-02] MEDS: PANTOPRAZOLE 40 MG TABLET PO SCH ×2 (09:29→20:02)
[2020-04-02] MEDS: PIPERACILLIN-TAZOBACTAM 3.375 GM in SODIUM CHLORIDE 0.9% 100 ML IVPB SCH ×3 (09:29→23:00)
[2020-04-02] MEDS: FUROSEMIDE 10 MG/ML 4 ML VIAL IV SCH ×2 (09:29→20:02)
[2020-04-02] MEDS: METOPROLOL SUCCINATE (ER) 25 MG TAB.ER.24H PO SCH (09:29)
--- NOTE | 2020-04-02 09:39 | P.PN ---
Subjective Patient is seen in follow-up for acute kidney injury. Renal function stable. Good urine output. Maintain on IV Lasix. Edema improving. Vital signs are stable. General: The patient appeared well nourished and normally developed. HEENT: Head exam is unremarkable. Neck is without jugular venous distension. LUNGS: Breath sounds decreased. HEART: Rate and Rhythm are regular. ABDOMEN: Soft, nontender. EXTREMITITES: 1+ edema. Objective - Vital Signs Vital signs: Vital Signs Temp 97.9 F 04/02/20 08:00 Pulse 97 04/02/20 08:00 Resp 17 04/02/20 08:00 BP 103/56 04/02/20 08:00 Pulse Ox 94 L 04/02/20 08:00 Intake & Output 04/01/20 04/02/20 04/02/20 18:59 06:59 18:59 Intake Total 865 Output Total 885 1400 Balance -20 -1400 Weight 73.1 kg 70.2 kg Intake: IV 385 0.9 NaCl- 160 Zosyn 125 Oral 480 Output: Urine 885 1400 Other: Voiding Method Urinal # Voids 2 - Labs CBC & Chem 7: 04/02/20 07:02 04/02/20 07:02 Labs: Abnormal Lab Results - Last 24 Hours (Table) 04/02/20 04/02/20 04/02/20 Range/Units 07:02 07:02 07:02 WBC 14.9 H (3.8-10.6) k/uL Hgb 11.6 L (13.0-17.5) gm/dL Hct 37.3 L (39.0-53.0) % RDW 18.3 H (11.5-15.5) % PT 15.6 H (9.0-12.0) sec INR 1.6 H (<1.2) APTT 32.5 H (22.0-30.0) sec Sodium 133 L (137-145) mmol/L Chloride 95 L (98-107) mmol/L Carbon Dioxide 32 H (22-30) mmol/L Glucose 113 H (74-99) mg/dL Calcium 7.7 L (8.4-10.2) mg/dL Total Bilirubin 4.5 H (0.2-1.3) mg/dL AST 144 H (17-59) U/L ALT 335 H (4-49) U/L Alkaline Phosphatase 207 H (38-126) U/L Albumin 3.0 L (3.5-5.0) g/dL Microbiology - Last 24 Hours (Table) 03/26/20 13:01 Blood Culture - Final Blood No Growth after 144 hours Assessment and Plan Plan: Assessment: 1. Acute kidney injury secondary to ATN secondary to cardiorenal syndrome as well as contrast-induced acute kidney injury. Renal function improving. Creatinine 1.14 today. 2. Acute on chronic systolic CHF with ejection fraction of 25-30% with moderate to severe tricuspid regurgitation. 3. Volume overload. 4. 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 5. Hypervolemic hyponatremia. Plan: Maintain IV Lasix 40 mg twice daily. Encourage oral intake, particularly protein. Avoid nephrotoxins. Continue to monitor renal function and urine output as he received IV contrast again April 01.
[2020-04-02] MEDS ORDERED: Magnesium Replacement Protocol 1 EACH MISC MISCELLANE PRN (11:24)
--- NOTE | 2020-04-02 13:53 | P.PN ---
Subjective Progress Note Date: 04/02/20 Principal diagnosis: Elevated liver enzymes, transaminitis Patient is seen lying in bed reporting that is tolerating diet. No nausea or vomiting. Only complaint is shortness of breath. Objective - Vital Signs Vital signs: Vital Signs Temp 97.9 F 04/02/20 08:00 Pulse 96 04/02/20 10:56 Resp 17 04/02/20 08:00 BP 103/56 04/02/20 08:00 Pulse Ox 94 L 04/02/20 08:00 Intake & Output 04/01/20 04/02/20 04/02/20 18:59 06:59 18:59 Intake Total 865 Output Total 885 1400 Balance -20 -1400 Weight 73.1 kg 70.2 kg Intake: IV 385 0.9 NaCl- 160 Zosyn 125 Oral 480 Output: Urine 885 1400 Other: Voiding Method Urinal Urinal # Voids 2 - Exam On physical examination, patient appears comfortable in no apparent distress. HEAD: Normocephalic, atraumatic. EYES: No scleral icterus. No conjunctival injection. MOUTH: No lesions, tongue midline. NECK: Trachea midline, no gross abnormalities. CHEST: Decreased air entry in all lung co[place]. ABDOMEN: Soft, nontender to palpation. Bowel sounds are positive. No organomegaly. No guarding or rigidity. EXTREMITIES: Bilateral pedal edema. SKIN: No rashes, no jaundice. NEUROLOGIC: Alert and oriented x3. No focal deficits. - Labs CBC & Chem 7: 04/02/20 07:02 04/02/20 07:02 Labs: Abnormal Lab Results - Last 24 Hours (Table) 04/02/20 04/02/20 04/02/20 Range/Units 07:02 07:02 07:02 WBC 14.9 H (3.8-10.6) k/uL Hgb 11.6 L (13.0-17.5) gm/dL Hct 37.3 L (39.0-53.0) % RDW 18.3 H (11.5-15.5) % PT 15.6 H (9.0-12.0) sec INR 1.6 H (<1.2) APTT 32.5 H (22.0-30.0) sec Sodium 133 L (137-145) mmol/L Chloride 95 L (98-107) mmol/L Carbon Dioxide 32 H (22-30) mmol/L Glucose 113 H (74-99) mg/dL Calcium 7.7 L (8.4-10.2) mg/dL Magnesium (1.6-2.3) mg/dL Total Bilirubin 4.5 H (0.2-1.3) mg/dL AST 144 H (17-59) U/L ALT 335 H (4-49) U/L Alkaline Phosphatase 207 H (38-126) U/L Albumin 3.0 L (3.5-5.0) g/dL 04/02/20 Range/Units 07:02 WBC (3.8-10.6) k/uL Hgb (13.0-17.5) gm/dL Hct (39.0-53.0) % RDW (11.5-15.5) % PT (9.0-12.0) sec INR (<1.2) APTT (22.0-30.0) sec Sodium (137-145) mmol/L Chloride (98-107) mmol/L Carbon Dioxide (22-30) mmol/L Glucose (74-99) mg/dL Calcium (8.4-10.2) mg/dL Magnesium 1.4 L (1.6-2.3) mg/dL Total Bilirubin (0.2-1.3) mg/dL AST (17-59) U/L ALT (4-49) U/L Alkaline Phosphatase (38-126) U/L Albumin (3.5-5.0) g/dL Microbiology - Last 24 Hours (Table) 03/26/20 13:01 Blood Culture - Final Blood No Growth after 144 hours Assessment and Plan (1) Elevated liver enzymes Narrative/Plan: This is s a patient who presented to the hospital with worsening shortness of breath diffuse abdominal pain associated with nausea, vomiting and not feeling well since November of last year. He's had a weight loss of approximately 20 pounds. At the time of admission to the hospital he was noted to have leukocytosis and increased serum transaminases as well as bilirubin up to 3.8 area computed tomography scan and ultrasound showed no evidence of gallstones or biliary ductal dilation. He has a long-standing history of ischemic cardiomyopathy with an ejection fraction of 30% and status post AICD implantation. He was also noted to have lactic acidosis at presentation. The clinical picture is more consistent with a global hypoperfusion causing ischemic hepatitis and the possibility of small bowel ischemia cannot be excluded. Possible cirrhosis of the liver based on imaging studies, the CAT scan showed nodular appearing liver which was also displayed on ultrasound of the abdomen on 04/01, liver enzymes are likely elevated due to hypoperfusion in the setting of chronic liver disease. Current Visit: Yes Status: Acute Code(s): R74.8 - ABNORMAL LEVELS OF OTHER SERUM ENZYMES SNOMED Code(s): 223500007 (2) Abdominal pain Current Visit: Yes Status: Acute Code(s): R10.9 - UNSPECIFIED ABDOMINAL PAIN SNOMED Code(s): 05196330 Plan: Supportive care Okay for diet as tolerated Medical management per primary team Continue to monitor CBC, BMP, LFTs Liver serology ordered and negative the patient likely has a degree of underlying liver fibrosis and possibly cirrhosis based on imaging and labs with liver enzymes likely worsened in the setting of hypoperfusion, they're currently improving Thank you for allowing us to participate in the care of the patient we will continue to follow
[2020-04-02] MEDS: MAGNESIUM SULFATE-D5W PMX 1 GM in DEXTROSE/WATER 1 100ML.BAG IVPB SCH ×3 (14:26→16:46)
--- NOTE | 2020-04-02 14:55 | P.PN ---
Subjective Progress Note Date: 04/02/20 Principal diagnosis: Shortness of breath. On 03/30/2020 patient seen in follow-up in the intensive care unit, awake and alert, resting comfortably in bed, he is oriented 3, appears to be in acute distress, is in sinus mechanism with a controlled rate, he is on 2 L of oxygen, with a pulse ox of 95%, no fever no chills, at times he has had some low systolic blood pressure readings with systolic in the 70s, clinically asymptomatic, currently blood pressure is 90/58, debridement drip was discontinued, No arrhythmias, no complaints of chest pain, no worsening dyspnea, lung sounds are diminished at the bases with some limited crackles. Today's chest x-ray shows diffuse interstitial pattern, bilateral consolidation and pleural effusions. Patient remains on Zosyn for an antibiotic coverage, IV fluids with 0.9, secondary to 50 ML per hour. Today's labs have been reviewed, with blood cell count continues to improve, down to 11.5 on today's labs, hemoglobin is 11.2, INR is 2.3, and hematology is following, patient received vitamin K yesterday for INR of 4.0., Renal profile continues to improve, BUN is down to 42, creatinine is 2.47, liver enzymes are improving patient is tolerating oral intake, no abdominal discomfort The patient is seen today 03/31/2020 follow-up on the selective care unit. He is currently resting comfortably in bed. Awake and alert in no acute distress. Maintaining O2 saturations in the 90s on 2 L/m per nasal cannula. He did drop to 87% when checked on room air. White count 12.4. Hemoglobin 11.0. INR 1.7. Sodium 133. Potassium 3.6. Creatinine 1.37. AST 459, ALT 582. He remains on diuretics, antibiotics in the form of Zosyn, bronchodilators. Progress note dated 04/02/2020. 70-year-old male admitted with a diagnosis of acute on chronic systolic heart failure, with ischemic cardiomyopathy, and an ejection fraction of 30-35%. In addition, the patient has severe mitral regurgitation, atrial fibrillation, congestive hepatopathy, possible abdominal sepsis, lactic acidemia, and possible mesenteric ischemia. The patient is currently doing a bit better. He is resting comfortably in his bed. We did not see him yesterday because he had a mesenteric angiography done yesterday by Dr. Palacios, which turned out okay. Currently, he is on 1-1/2 L of nasal O2 and his saturations 94%. His blood pressure is 103/56. Heart rate is 88 bpm and temperature is normal. White count is 14.9, hemoglobin 11.6, hematocrit 37.3, and platelet count 160,000. PT 15.6, INR 1.6, and PTT 32.5. Sodium is 133, potassium 3.6, chloride 95, and CO2 32. Anion gap is 6. BUN and creatinine were 19 and 1.14. Objective - Vital Signs Vital signs: Vital Signs Temp 97.9 F 04/02/20 08:00 Pulse 96 04/02/20 10:56 Resp 17 04/02/20 08:00 BP 103/56 04/02/20 08:00 Pulse Ox 94 L 04/02/20 08:00 Intake & Output 04/01/20 04/02/20 04/02/20 18:59 06:59 18:59 Intake Total 865 Output Total 885 1400 Balance -20 -1400 Weight 73.1 kg 70.2 kg Intake: IV 385 0.9 NaCl- 160 Zosyn 125 Oral 480 Output: Urine 885 1400 Other: Voiding Method Urinal Urinal # Voids 2 - Exam No acute distress, oriented 3. HEENT examination is grossly unremarkable. Mucous membranes are moist. No oral lesions. Neck supple. Full range of motion. No adenopathy thyromegaly or neck vein distention. Cardiovascular examination reveals irregular rhythm and rate. S1-S2 normal. No S3 or S4. A soft systolic murmur is noted. Lungs reveal clear breath sounds. Her sounds are equal bilaterally. No adventi tious lung sounds including wheezes rhonchi or crackles. Abdomen soft bowel sounds are heard. No masses or tenderness. Extremities are intact. No cyanosis clubbing or edema. Skin is without rash or lesion. Neurologic examination is brief but nonfocal. - Labs CBC & Chem 7: 04/02/20 07:02 04/02/20 07:02 Labs: Abnormal Lab Results - Last 24 Hours (Table) 04/02/20 04/02/20 04/02/20 Range/Units 07:02 07:02 07:02 WBC 14.9 H (3.8-10.6) k/uL Hgb 11.6 L (13.0-17.5) gm/dL Hct 37.3 L (39.0-53.0) % RDW 18.3 H (11.5-15.5) % PT 15.6 H (9.0-12.0) sec INR 1.6 H (<1.2) APTT 32.5 H (22.0-30.0) sec Sodium 133 L (137-145) mmol/L Chloride 95 L (98-107) mmol/L Carbon Dioxide 32 H (22-30) mmol/L Glucose 113 H (74-99) mg/dL Calcium 7.7 L (8.4-10.2) mg/dL Magnesium (1.6-2.3) mg/dL Total Bilirubin 4.5 H (0.2-1.3) mg/dL AST 144 H (17-59) U/L ALT 335 H (4-49) U/L Alkaline Phosphatase 207 H (38-126) U/L Albumin 3.0 L (3.5-5.0) g/dL 04/02/20 Range/Units 07:02 WBC (3.8-10.6) k/uL Hgb (13.0-17.5) gm/dL Hct (39.0-53.0) % RDW (11.5-15.5) % PT (9.0-12.0) sec INR (<1.2) APTT (22.0-30.0) sec Sodium (137-145) mmol/L Chloride (98-107) mmol/L Carbon Dioxide (22-30) mmol/L Glucose (74-99) mg/dL Calcium (8.4-10.2) mg/dL Magnesium 1.4 L (1.6-2.3) mg/dL Total Bilirubin (0.2-1.3) mg/dL AST (17-59) U/L ALT (4-49) U/L Alkaline Phosphatase (38-126) U/L Albumin (3.5-5.0) g/dL Microbiology - Last 24 Hours (Table) 03/26/20 13:01 Blood Culture - Final Blood No Growth after 144 hours Assessment and Plan Assessment: 1. Acute on chronic systolic heart failure, and the patient with ischemic cardiomyopathy and left ventricular dysfunction and ejection fraction of 30-35%. 2. Cardiogenic shock, resolved. Severe mitral regurgitation. 3. Chronic atrial fibrillation anticoagulated with warfarin. 4. Congestive hepatopathy. 5. Possible abdominal sepsis. 6. Lactic acidosis related to hypoperfusion related to acute exacerbation of systolic CHF. 7. Rule out mesenteric ischemia. 8. Cardiorenal syndrome. 9. Coumadin induced coagulopathy. 10. History of coronary artery disease with previous stenting. 11. Hyperlipidemia. 12. History of hypertension. 13. Prior history of myocardial infarction. 14. Status post pacemaker insertion. Plan: Plan dated 04/02/2020. Currently, the patient seems to be a bit more stable but very sleepy. He had a mesenteric arteriogram done yesterday which was apparently normal. The patient continues on oxygen at 1-1/2 L. His respiratory status and hemodynamic status for the time being her relatively stable. We'll continue with antibiotics and bronchodilators. Continue with diuretics. Prognosis is guarded. We will continue to follow. Discharge planning underway. Time with Patient: Less than 30
--- NOTE | 2020-04-02 16:02 | P.PN ---
Subjective HISTORY OF PRESENTING ILLNESS Patient is a pleasant 70-year-old male with history of CAD with multiple stents in the past, ischemic cardiomyopathy, atrial fibrillation on Xarelto, subcutaneous AICD, ventricular tachycardia with ICD discharge in November on amiodarone, multiple ablations in the past who normally follows with Dr. Curry. Patient did have an AICD discharge in November admits he has not felt well since that time. Mainly he has been having nausea, vomiting, problems with eating more substantial foods with abdominal pain when he does eat these and approximate 20-30 pound weight loss. Patient did present in February where he h ad catheterization performed with CT of the RCA with [id number] collaterals and mild to moderate disease of the circumflex and no significant stenosis of the LAD. Patient presented mainly with continued nausea, vomiting and abdominal pain and was found to have increased lactic acidosis, leukocytosis, acute kidney injury and hypotension. He did have a CTA performed of the abdomen and pelvis which showed a small amount of ascites, wall thickening of the colon and mention of the SMA and celiac axis the diminutive size with extensive vascular disease. He additionally had coagulopathy with INR of 9, shock liver with AST and ALTs in the thousands. His amiodarone was stopped. 04/02/20 Patient seen and examined. Patient had mesenteric angiography performed from the right femoral approach yesterday which was unrevealing without significant stenosis. Right femoral site appears stable. Patient denies any symptoms of chest pain or pressure. He does however state he feels somewhat more short of breath today than yesterday. Chest x-ray was performed this morning which shows continued bilateral pleural effusions with some vascular congestion which is relatively unchanged from 03/30/20. White blood cell count 14.9, hemoglobin 11.6, INR is 1.6, sodium is 133 with a creatinine of 1.14. Liver enzymes continue to improve mildly. REVIEW OF SYSTEMS At the time of my exam: CONSTITUTIONAL: Denies fever or chills. CARDIOVASCULAR: Denies chest pain, shortness of breath, or palpitations. RESPIRATORY: Denies cough. GASTROINTESTINAL: + abdominal pain, no diarrhea, constipation, nausea or vomiting. MUSCULOSKELETAL: Denies myalgias. NEUROLOGIC: Denies numbness, tingling or weakness. ENDOCRINE: + fatigue, +weight loss. GENITOURINARY: Denies burning, hematuria or urgency with micturation. HEMATOLOGIC: Denies history of anemia or bleeding. PHYSICAL EXAMINATION Blood pressure 97/57 heart rate 85 afebrile and maintaining oxygen saturation on 2 L nasal cannula. CONSTITUTIONAL: No apparent distress, chronically ill-appearing, thin. HEENT: Head is normocephalic. Pupils are equal, round. Sclerae anicteric. Mucous membranes of the mouth are moist. No carotid bruit. CHEST EXAMINATION: Lungs are clear to auscultation. + Mild crackles at bases HEART EXAMINATION: Regular rate and rhythm. S1, S2 heard. +2/6 systolic murmur. ABDOMEN: Soft, +mildly tender. No bruit noted. Positive bowel sounds. EXTREMITIES: 2+ peripheral pulses, +1+ lower extremity edema and no calf tenderness. NEUROLOGIC EXAMINATION: Patient is awake, alert and oriented x3. ASSESSMENT 1. Shock of unclear etiology. Predominantly appears septic shock 2. Acute liver injury, likely shock liver with coagulopathy. Improving. Amiodarone was discontinued 3. Ischemic cardiomyopathy with EF 25-30% 4. CAD with known history of [employer] of RCA with [id number] collaterals, most recent heart catheterization 02/2020 5. At least moderate to severe posteriorly directed mitral regurgitation with posterior leaflet tethering. Echo this admission showed moderate mitral regurgitation. 6. Moderate to severe tricuspid regurgitation 7. History of hypertension, antihypertensives were held 8. Coagulopathy, improving 9. Acute kidney injury likely related to contrast-induced nephropathy from CTA as well as ATN from hypotension 10. Anemia 11. Elevated troponin, likely type II mechanism from shock 12. Paroyxsmal A. fib 13. AICD present 14. History of ventricular tachycardia status post ablation and AICD, previ ously on amiodarone 15. Persistent nausea, vomiting, abdominal pain since November. May be a comp onent of mesenteric ischemia. PLAN Patient had mesenteric angiography yesterday which was unrevealing, do not suspect chronic mesenteric ischemia as source of his abdominal pain and weight loss. We will attempt to optimize his heart failure regimen and place him back on his enalapril 2.5 mg daily as well as spironolactone 25 mg daily as he does not currently appear to be in shock and his blood pressure is better controlled. Patient with mild feeling of increased shortness breath and chest x-ray appears relatively similar to 03/30. Prognosis guarded. Transition to oral Lasix tomorrow. Objective - Vital Signs Vital signs: Vital Signs Temp 97.9 F 04/02/20 08:00 Pulse 96 04/02/20 15:18 Resp 17 04/02/20 08:00 BP 103/56 04/02/20 08:00 Pulse Ox 94 L 04/02/20 08:00 Intake & Output 04/01/20 04/02/20 04/02/20 18:59 06:59 18:59 Intake Total 865 360 Output Total 885 1400 300 Balance -20 -1400 60 Weight 73.1 kg 70.2 kg Intake: IV 385 0.9 NaCl- 160 Zosyn 125 Oral 480 360 Output: Urine 885 1400 300 Other: Voiding Method Urinal Urinal # Voids 2 - Labs CBC & Chem 7: 04/02/20 07:02 04/02/20 07:02 Labs: Abnormal Lab Results - Last 24 Hours (Table) 04/02/20 04/02/20 04/02/20 Range/Units 07:02 07:02 07:02 WBC 14.9 H (3.8-10.6) k/uL Hgb 11.6 L (13.0-17.5) gm/dL Hct 37.3 L (39.0-53.0) % RDW 18.3 H (11.5-15.5) % PT 15.6 H (9.0-12.0) sec INR 1.6 H (<1.2) APTT 32.5 H (22.0-30.0) sec Sodium 133 L (137-145) mmol/L Chloride 95 L (98-107) mmol/L Carbon Dioxide 32 H (22-30) mmol/L Glucose 113 H (74-99) mg/dL Calcium 7.7 L (8.4-10.2) mg/dL Magnesium (1.6-2.3) mg/dL Total Bilirubin 4.5 H (0.2-1.3) mg/dL AST 144 H (17-59) U/L ALT 335 H (4-49) U/L Alkaline Phosphatase 207 H (38-126) U/L Albumin 3.0 L (3.5-5.0) g/dL 04/02/20 Range/Units 07:02 WBC (3.8-10.6) k/uL Hgb (13.0-17.5) gm/dL Hct (39.0-53.0) % RDW (11.5-15.5) % PT (9.0-12.0) sec INR (<1.2) APTT (22.0-30.0) sec Sodium (137-145) mmol/L Chloride (98-107) mmol/L Carbon Dioxide (22-30) mmol/L Glucose (74-99) mg/dL Calcium (8.4-10.2) mg/dL Magnesium 1.4 L (1.6-2.3) mg/dL Total Bilirubin (0.2-1.3) mg/dL AST (17-59) U/L ALT (4-49) U/L Alkaline Phosphatase (38-126) U/L Albumin (3.5-5.0) g/dL Microbiology - Last 24 Hours (Table) 03/26/20 13:01 Blood Culture - Final Blood No Growth after 144 hours
--- NOTE | 2020-04-02 17:24 | XR ---
EXAMINATION TYPE: XR chest 1V portable DATE OF EXAM: 04/02/2020 COMPARISON: 03/30/2020. HISTORY: Shortness of breath. TECHNIQUE: Single frontal view of the chest is obtained. FINDINGS: There is persistent moderate interstitial edema with bibasilar opacities and small pleural effusions. No pneumothorax seen. The cardiac silhouette size is enlarged. Stable left AICD. Additio nal left-sided neurostimulator device seen. The osseous structures are intact. IMPRESSION: Persistent CHF with bilateral pleural effusions.
[2020-04-03] MEDS: MIDODRINE 5 MG TAB PO SCH ×3 (06:36→17:41)
[2020-04-03] MEDS: IPRATROPIUM-ALBUTEROL 3 ML NEB INHALATION SCH ×4 (07:35→19:17)
[2020-04-03 08:11] LABS: Albumin 3.2 g/dL (3.5-5.0); Calcium 7.8 mg/dL (8.4-10.2); Potassium 3.7 mmol/L (3.5-5.1); Total Bilirubin 4.4 mg/dL (0.2-1.3); Total Protein 6.7 g/dL (6.3-8.2)
[2020-04-03 08:24] LABS: INR 1.5 (<1.2); Partial Thromboplastin Time 30.1 sec (22.0-30.0); Prothrombin Time 14.8 sec (9.0-12.0)
--- NOTE | 2020-04-03 08:52 | P.PN ---
Subjective Patient is a pleasant 69-year-old male with known history of ischemic cardiomyopathy of around 30-35% is admitted for acute respiratory failure card iogenic shock from congestive heart failure exacerbation patient also has renal dysfunction from prerenal azotemia from congestive heart failure, patient to creatinine continue to improve. There was initial concern about contrast nephropathy although patient doesn't appear to have contrast nephropathy at this time. Patient has an AICD patient creatinine continue to improve patient also has hepatic congestion leading to elevated liver enzymes patient had an ultrasound of the liver which showed hepatocellular disease. Patient is presently not on any anticoagulation patient does have history of atrial fibrillation was on anticoagulation as an outpatient. Patient also has severe mitral regurgitation probably 1 A. fib probably will be discharged on Coumadin. Patient was given vitamin K because of significantly elevated INR. Patient is also on Zosyn because of her elevated lactic acid there was a concern about ischemic colitis because of which patient is on Zosyn patient has elevated white blood cell count although there is no clear evidence of ischemic colitis patient had elevated lactic acid most probably secondary to decreased organ perfusion secondary to his severe CHF and collagen injection. Patient also will be continued on antibiotics for now. There is no evidence of any other infection at this time. presently on 2 L of oxygen still short of breath 04/02/2020 Patient is still complaining of shortness of breath and patient is presently on 1.3 L of oxygen. Liver labs and creatinine continue to improve JVD did improve and is bit up compared to couple days ago but patient is already on empiric antibiotics Zosyn which will be continued for now. 04/03/2020 Patient creatinine continue to improve. Physical beneficial therapy will evaluate the patient. There is some swallowing issues we'll order a barium swallow. Constitutional: Denied any fatigue denied any fever. Cardio vascular: denied any chest pain, palpitations Gastrointestinal denied any nausea vomiting Pulmonary: As mentioned above Neurologic denied any new focal deficits All inpatient medications were reviewed and appropriate changes in these medications as dictated in the interval history and assessment and plan. Objective - Vital Signs Vital signs: Vital Signs Temp 98.5 F 04/03/20 04:00 Pulse 92 04/03/20 07:45 Resp 18 04/03/20 04:00 BP 94/58 04/03/20 04:00 Pulse Ox 95 04/03/20 04:00 Intake & Output 04/02/20 04/03/20 04/03/20 18:59 06:59 18:59 Intake Total 600 320 240 Output Total 600 500 Balance 0 -180 240 Weight 71.6 kg Intake: IV 80 0.9 NaCl- 80 Oral 600 240 240 Output: Urine 600 500 Other: Voiding Method Urinal Urinal - Exam PHYSICAL EXAMINATION: GENERAL: The patient is alert and oriented x3, not in any acute distress. Well developed, well nourished. HEENT: Pupils are round and equally reacting to light. EOMI. No scleral icterus. No conjunctival pallor. Normocephalic, atraumatic. No pharyngeal erythema. No thyromegaly. CARDIOVASCULAR: S1 and S2 present. No murmurs, rubs, or gallops. JVD improved PULMONARY: Chest is clear to auscultation, no wheezing or crackles. ABDOMEN: Soft, nontender, nondistended, normoactive bowel sounds. No palpable organomegaly. MUSCULOSKELETAL: No joint swelling or deformity. EXTREMITIES: No cyanosis, clubbing, or pedal edema. NEUROLOGICAL: Gross neurological examination did not reveal any focal deficits. SKIN: No rashes. - Labs CBC & Chem 7: 04/02/20 07:02 04/03/20 07:45 Labs: Abnormal Lab Results - Last 24 Hours (Table) 04/02/20 04/03/20 04/03/20 Range/Units 07:02 07:45 07:45 PT 14.8 H (9.0-12.0) sec INR 1.5 H (<1.2) APTT 30.1 H (22.0-30.0) sec Sodium 133 L (137-145) mmol/L Chloride 93 L (98-107) mmol/L Carbon Dioxide 31 H (22-30) mmol/L Glucose 124 H (74-99) mg/dL Calcium 7.8 L (8.4-10.2) mg/dL Magnesium 1.4 L (1.6-2.3) mg/dL Total Bilirubin 4.4 H (0.2-1.3) mg/dL AST 104 H (17-59) U/L ALT 266 H (4-49) U/L Alkaline Phosphatase 215 H (38-126) U/L Albumin 3.2 L (3.5-5.0) g/dL Assessment and Plan Plan: -Acute hypoxic respiratory failure secondary to CHF exacerbation. Chest x-ray condition to show pleural effusions and CHF although patient is clinically improving -Dysphagia will obtain barium swallow. -Congenic shock: Improving continue with IV Lasix, shock improved -Elevated INR secondary to hepatic congestion poor by mouth intake and Xarelto of INR is about 1.5 today probably will need to start him on anticoagulation . -Congestive heart failure chronic systolic dysfunction with acute exacerbation patient has an AICD in place -Coronary artery disease with ischemic cardiomyopathy -Elevated liver enzymes secondary to hepatic congestion -Leukocytosis reactive without any clear evidence of infection possibility of ischemic colitis is low for now will continue with antibiotics -Severe mitral regurgitation -Hyperlipidemia -Persistent A. fib presently rate controlled continue with present rate control medications -Nicotine use: Counseling was provided - acute renal failure:: Secondary to prerenal azotemia from congestive heart failure exacerbation -Bilateral pleural effusions status post thoracentesis and pleural effusions are secondary to CHF -Elevated troponins secondary to acute renal failure and CHF
--- NOTE | 2020-04-03 09:06 | P.PN ---
Subjective Patient is seen in follow-up for acute kidney injury. Renal function stable. Good urine output. Maintained on IV Lasix. Edema about the same as yesterday. Vital signs are stable. General: The patient appeared well nourished and normally developed. HEENT: Head exam is unremarkable. Neck is without jugular venous distension. LUNGS: Breath sounds decreased. HEART: Rate and Rhythm are regular. ABDOMEN: Soft, nontender. EXTREMITITES: 1+ edema. Objective - Vital Signs Vital signs: Vital Signs Temp 98.5 F 04/03/20 04:00 Pulse 92 04/03/20 07:45 Resp 18 04/03/20 04:00 BP 94/58 04/03/20 04:00 Pulse Ox 95 04/03/20 04:00 Intake & Output 04/02/20 04/03/20 04/03/20 18:59 06:59 18:59 Intake Total 600 320 240 Output Total 600 500 Balance 0 -180 240 Weight 71.6 kg Intake: IV 80 0.9 NaCl- 80 Oral 600 240 240 Output: Urine 600 500 Other: Voiding Method Urinal Urinal - Labs CBC & Chem 7: 04/02/20 07:02 04/03/20 07:45 Labs: Abnormal Lab Results - Last 24 Hours (Table) 04/02/20 04/03/20 04/03/20 Range/Units 07:02 07:45 07:45 PT 14.8 H (9.0-12.0) sec INR 1.5 H (<1.2) APTT 30.1 H (22.0-30.0) sec Sodium 133 L (137-145) mmol/L Chloride 93 L (98-107) mmol/L Carbon Dioxide 31 H (22-30) mmol/L Glucose 124 H (74-99) mg/dL Calcium 7.8 L (8.4-10.2) mg/dL Magnesium 1.4 L (1.6-2.3) mg/dL Total Bilirubin 4.4 H (0.2-1.3) mg/dL AST 104 H (17-59) U/L ALT 266 H (4-49) U/L Alkaline Phosphatase 215 H (38-126) U/L Albumin 3.2 L (3.5-5.0) g/dL Assessment and Plan Plan: Assessment: 1. Acute kidney injury secondary to ATN secondary to cardiorenal syndrome as well as contrast-induced acute kidney injury. Renal function improving. Creatinine 1.02 today. 2. Acute on chronic systolic CHF with ejection fraction of 25-30% with moderate to severe tricuspid regurgitation. 3. Volume overload. 4. 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 5. Hypervolemic hyponatremia. Plan: Maintain IV Lasix 40 mg twice daily. Add metolazone 5 mg once daily. Encourage oral intake, particularly protein. Avoid nephrotoxins. Continue to monitor renal function and urine output as he received IV contrast again April 01.
[2020-04-03] MEDS: FUROSEMIDE 10 MG/ML 4 ML VIAL IV SCH ×2 (10:13→22:06)
[2020-04-03] MEDS: PANTOPRAZOLE 40 MG TABLET PO SCH ×2 (10:14→22:06)
[2020-04-03] MEDS: METOPROLOL SUCCINATE (ER) 25 MG TAB.ER.24H PO SCH (10:14)
[2020-04-03] MEDS: SPIRONOLACTONE 25 MG TAB PO SCH (10:14)
[2020-04-03] MEDS: metOLazone 5 MG TAB PO SCH (10:19)
--- NOTE | 2020-04-03 12:41 | P.PN ---
Subjective HISTORY OF PRESENTING ILLNESS Patient is a pleasant 70-year-old male with history of CAD with multiple stents in the past, ischemic cardiomyopathy, atrial fibrillation on Xarelto, subcutaneous AICD, ventricular tachycardia with ICD discharge in November on amiodarone, multiple ablations in the past who normally follows with Dr. Curry. He is seen and examined resting comfortably sleeping in bed. He complains of difficulty swallowing and ongoing fatigue. He denies any symptoms of chest pain, shortness of breath, dizziness or palpitations. Blood pressure 94/58 heart rate 92 afebrile maintaining oxygen saturation on nasal cannula. Telemet ry tracings reveals sinus mechanism with PVCs. Laboratory data reviewed, INR 1.5, sodium 133, potassium 3.7, creatinine 1.02, magnesium 2.0. Liver enzymes no mild improvement Currently maintained on Aldactone 25 mg daily, midodrine 10 mg 3 times a day, Toprol 25 mg daily, Zaroxolyn 5 mg daily, Isordil 2.5 mg daily and Lasix 40 mg IV twice a day per nephrology. 24 hour urine output is 1100 mL. Repeat chest x-ray last evening reveals persistent heart failure with bilateral pleural effusions. PHYSICAL EXAMINATION CONSTITUTIONAL: No apparent distress, chronically ill-appearing, thin. HEENT: Head is normocephalic. Pupils are equal, round. Sclerae anicteric. Mucous membranes of the mouth are moist. No carotid bruit. CHEST EXAMINATION: Bibasilar rales, no rhonchi or wheezes. HEART EXAMINATION: Regular rate and rhythm. S1, S2 heard. +2/6 systolic murmur. EXTREMITIES: 2+ peripheral pulses, +1+ lower extremity edema and no calf tenderness. ASSESSMENT Shock of unclear etiology. Predominantly appears septic shock Acute liver injury, likely shock liver with coagulopathy. Improving. Amiodarone was discontinued Ischemic cardiomyopathy with EF 25-30% status post AICD CAD with known history of PLANNING COORDINATOR of RCA with [id number] collaterals, most recent heart catheterization 02/2020 At least moderate to severe posteriorly directed mitral regurgitation with posterior leaflet tethering. Echo this admission showed moderate mitral regurgitation. Moderate to severe tricuspid regurgitation History of hypertension, antihypertensives were held Coagulopathy, improving Acute kidney injury likely related to contrast-induced nephropathy from CTA as well as ATN from hypotension Anemia Elevated troponin, likely type II mechanism from shock Paroyxsmal A. fib, currently maintaining sinus mechanism. Anticoagulation on hold. History of ventricular tachycardia status post ablation and AICD, previously on amiodarone Persistent nausea, vomiting, abdominal pain since November. May be a component of mesenteric ischemia. PLAN Continue IV diuresis. Follow renal function and electrolytes in the morning. Nurse Practitioner note has been reviewed, I agree with a documented findings and plan of care. Patient was seen and examined. Objective - Vital Signs Vital signs: Vital Signs Temp 98.5 F 04/03/20 04:00 Pulse 92 04/03/20 07:45 Resp 18 04/03/20 04:00 BP 94/58 04/03/20 04:00 Pulse Ox 95 04/03/20 04:00 Intake & Output 04/02/20 04/03/20 04/03/20 18:59 06:59 18:59 Intake Total 600 320 240 Output Total 600 500 Balance 0 -180 240 Weight 71.6 kg Intake: IV 80 0.9 NaCl- 80 Oral 600 240 240 Output: Urine 600 500 Other: Voiding Method Urinal Urinal - Labs CBC & Chem 7: 04/02/20 07:02 04/03/20 07:45 Labs: Abnormal Lab Results - Last 24 Hours (Table) 04/02/20 04/03/20 04/03/20 Range/Units 07:02 07:45 07:45 PT 14.8 H (9.0-12.0) sec INR 1.5 H (<1.2) APTT 30.1 H (22.0-30.0) sec Sodium 133 L (137-145) mmol/L Chloride 93 L (98-107) mmol/L Carbon Dioxide 31 H (22-30) mmol/L Glucose 124 H (74-99) mg/dL Calcium 7.8 L (8.4-10.2) mg/dL Magnesium 1.4 L (1.6-2.3) mg/dL Total Bilirubin 4.4 H (0.2-1.3) mg/dL AST 104 H (17-59) U/L ALT 266 H (4-49) U/L Alkaline Phosphatase 215 H (38-126) U/L Albumin 3.2 L (3.5-5.0) g/dL
--- NOTE | 2020-04-03 14:23 | P.PN ---
Subjective Progress Note Date: 04/03/20 Principal diagnosis: Shortness of breath. On 03/30/2020 patient seen in follow-up in the intensive care unit, awake and alert, resting comfortably in bed, he is oriented 3, appears to be in acute distress, is in sinus mechanism with a controlled rate, he is on 2 L of oxygen, with a pulse ox of 95%, no fever no chills, at times he has had some low systolic blood pressure readings with systolic in the 70s, clinically asymptomatic, currently blood pressure is 90/58, debridement drip was discontinued, No arrhythmias, no complaints of chest pain, no worsening dyspnea, lung sounds are diminished at the bases with some limited crackles. Today's chest x-ray shows diffuse interstitial pattern, bilateral consolidation and pleural effusions. Patient remains on Zosyn for an antibiotic coverage, IV fluids with 0.9, secondary to 50 ML per hour. Today's labs have been reviewed, with blood cell count continues to improve, down to 11.5 on today's labs, hemoglobin is 11.2, INR is 2.3, and hematology is following, patient received vitamin K yesterday for INR of 4.0., Renal profile continues to improve, BUN is down to 42, creatinine is 2.47, liver enzymes are improving patient is tolerating oral intake, no abdominal discomfort The patient is seen today 03/31/2020 follow-up on the selective care unit. He is currently resting comfortably in bed. Awake and alert in no acute distress. Maintaining O2 saturations in the 90s on 2 L/m per nasal cannula. He did drop to 87% when checked on room air. White count 12.4. Hemoglobin 11.0. INR 1.7. Sodium 133. Potassium 3.6. Creatinine 1.37. AST 459, ALT 582. He remains on diuretics, antibiotics in the form of Zosyn, bronchodilators. Progress note dated 04/02/2020. 70-year-old male admitted with a diagnosis of acute on chronic systolic heart failure, with ischemic cardiomyopathy, and an ejection fraction of 30-35%. In addition, the patient has severe mitral regurgitation, atrial fibrillation, congestive hepatopathy, possible abdominal sepsis, lactic acidemia, and possible mesenteric ischemia. The patient is currently doing a bit better. He is resting comfortably in his bed. We did not see him yesterday because he had a mesenteric angiography done yesterday by Dr. Palacios, which turned out okay. Currently, he is on 1-1/2 L of nasal O2 and his saturations 94%. His blood pressure is 103/56. Heart rate is 88 bpm and temperature is normal. White count is 14.9, hemoglobin 11.6, hematocrit 37.3, and platelet count 160,000. PT 15.6, INR 1.6, and PTT 32.5. Sodium is 133, potassium 3.6, chloride 95, and CO2 32. Anion gap is 6. BUN and creatinine were 19 and 1.14. Progress note dated 04/03/2020. 70-year-old male admitted with a diagnosis of acute on chronic systolic heart failure, with ischemic cardiomyopathy, an ejection fraction of 30-35%. The patient was also discovered to have severe mitral regurgitation, atrial fibrillation, congestive hepatopathy, possible abdominal sepsis, lactic acidemia, and possible mesenteric ischemia. The patient did have a mesenteric angiogram, which was normal. Clinically, he is doing better. He feels better. He is hoping to be discharged in the next day or so. Current laboratory data includes a PT 14.8, INR 1.5, and a PTT of 30.1. In addition, sodium is 133, potassium 3.7, chlorides 93, CO2 31, anion gap 9, BUN 17, and creatinine 1.02. Liver enzymes including the AST and ALT have come down nicely to 104 and 266 respectively. Albumin is 3.2. Chest x-ray from April 02 shows persistent congestive heart failure. Objective - Vital Signs Vital signs: Vital Signs Temp 98.5 F 04/03/20 04:00 Pulse 100 04/03/20 11:00 Resp 18 04/03/20 04:00 BP 94/58 04/03/20 04:00 Pulse Ox 95 04/03/20 04:00 Intake & Output 04/02/20 04/03/20 04/03/20 18:59 06:59 18:59 Intake Total 600 320 240 Output Total 600 500 Balance 0 -180 240 Weight 71.6 kg Intake: IV 80 0.9 NaCl- 80 Oral 600 240 240 Output: Urine 600 500 Other: Voiding Method Urinal Urinal - Exam No acute distress, oriented 3. No conversational dyspnea for use of accessory muscles. HEENT examination is grossly unremarkable. Mucous membranes are moist. No oral lesions. Neck supple. Full range of motion. No adenopathy thyromegaly or neck vein distention. Cardiovascular examination reveals irregular rhythm and rate. S1-S2 normal. No S3 or S4. A soft systolic murmur is noted. Heart rate is 92 bpm. Lungs reveal clear breath sounds. Her sounds are equal bilaterally. No a dventitious lung sounds including wheezes rhonchi or crackles. Abdomen soft bowel sounds are heard. No masses or tenderness. Extremities are intact. No cyanosis clubbing or edema. Skin is without rash or lesion. Neurologic examination is brief but nonfocal. - Labs CBC & Chem 7: 04/02/20 07:02 04/03/20 07:45 Labs: Abnormal Lab Results - Last 24 Hours (Table) 04/03/20 04/03/20 Range/Units 07:45 07:45 PT 14.8 H (9.0-12.0) sec INR 1.5 H (<1.2) APTT 30.1 H (22.0-30.0) sec Sodium 133 L (137-145) mmol/L Chloride 93 L (98-107) mmol/L Carbon Dioxide 31 H (22-30) mmol/L Glucose 124 H (74-99) mg/dL Calcium 7.8 L (8.4-10.2) mg/dL Total Bilirubin 4.4 H (0.2-1.3) mg/dL AST 104 H (17-59) U/L ALT 266 H (4-49) U/L Alkaline Phosphatase 215 H (38-126) U/L Albumin 3.2 L (3.5-5.0) g/dL Assessment and Plan Assessment: 1. Acute on chronic systolic heart failure, and the patient with ischemic cardiomyopathy and left ventricular dysfunction and ejection fraction of 30-35%. 2. Cardiogenic shock, resolved. 3. Chronic atrial fibrillation anticoagulated with warfarin. 4. Congestive hepatopathy. 5. Possible abdominal sepsis. 6. Lactic acidosis related to hypoperfusion related to acute exacerbation of systolic CHF. 7. Rule out mesenteric ischemia and mesenteric angiogram was normal. 8. Cardiorenal syndrome. 9. Coumadin induced coagulopathy. 10. History of coronary artery disease with previous stenting. 11. Hyperlipidemia. 12. History of hypertension. 13. Prior history of myocardial infarction. 14. Status post pacemaker insertion. 15. Severe mitral regurgitation. Plan: Plan dated 04/03/2020. Currently, the patient's doing well. The patient's oxygen has been weaned down to 1.5 L/m by nasal cannula. Chest x-ray from the continues to show persistent CHF. The patient's not sure when he'll be discharged. His labs, me dications, and problem list are all reviewed today. Clinically he is doing much better. His respiratory status is much improved. His overall prognosis though, is guarded. Time with Patient: Less than 30
--- NOTE | 2020-04-03 21:01 | P.PN ---
Subjective Progress Note Date: 04/03/20 Principal diagnosis: Elevated liver enzymes, transaminitis Patient is seen lying in bed reporting that he is doing well. No nausea or vomiting. Patient has not had a bowel movement in almost a week. He is offered a laxative by its is not interested at this time. Objective - Vital Signs Vital signs: Vital Signs Temp 98.5 F 04/03/20 04:00 Pulse 100 04/03/20 11:00 Resp 18 04/03/20 04:00 BP 94/58 04/03/20 04:00 Pulse Ox 95 04/03/20 04:00 Intake & Output 04/02/20 04/03/20 04/03/20 18:59 06:59 18:59 Intake Total 600 320 240 Output Total 600 500 Balance 0 -180 240 Weight 71.6 kg Intake: IV 80 0.9 NaCl- 80 Oral 600 240 240 Output: Urine 600 500 Other: Voiding Method Urinal Urinal - Exam On physical examination, patient appears comfortable in no apparent distress. HEAD: Normocephalic, atraumatic. EYES: No scleral icterus. No conjunctival injection. MOUTH: No lesions, tongue midline. NECK: Trachea midline, no gross abnormalities. CHEST: Decreased air entry in all lung [place]. ABDOMEN: Soft, nontender to palpation. Bowel sounds are positive. No organomegaly. No guarding or rigidity. EXTREMITIES: Bilateral pedal edema. SKIN: No rashes, no jaundice. NEUROLOGIC: Alert and oriented x3. No focal deficits. - Labs CBC & Chem 7: 04/02/20 07:02 04/03/20 07:45 Labs: Abnormal Lab Results - Last 24 Hours (Table) 04/03/20 04/03/20 Range/Units 07:45 07:45 PT 14.8 H (9.0-12.0) sec INR 1.5 H (<1.2) APTT 30.1 H (22.0-30.0) sec Sodium 133 L (137-145) mmol/L Chloride 93 L (98-107) mmol/L Carbon Dioxide 31 H (22-30) mmol/L Glucose 124 H (74-99) mg/dL Calcium 7.8 L (8.4-10.2) mg/dL Total Bilirubin 4.4 H (0.2-1.3) mg/dL AST 104 H (17-59) U/L ALT 266 H (4-49) U/L Alkaline Phosphatase 215 H (38-126) U/L Albumin 3.2 L (3.5-5.0) g/dL Assessment and Plan (1) Elevated liver enzymes Narrative/Plan: This is s a patient who presented to the hospital with worsening shortness of breath diffuse abdominal pain associated with nausea, vomiting and not feeling well since November of last year. He's had a weight loss of approximately 20 pounds. At the time of admission to the hospital he was noted to have leukocytosis and increased serum transaminases as well as bilirubin up to 3.8 area computed tomography scan and ultrasound showed no evidence of gallstones or biliary ductal dilation. He has a long-standing history of ischemic cardiomyopathy with an ejection fraction of 30% and status post AICD implantation. He was also noted to have lactic acidosis at presentation. The clinical picture is more consistent with a global hypoperfusion causing ischemic hepatitis and the possibility of small bowel ischemia cannot be excluded. Possible cirrhosis of the liver based on imaging studies, the CAT scan showed nodular appearing liver which was also displayed on ultrasound of the abdomen on 04/01, liver enzymes are likely elevated due to hypoperfusion in the setting of chronic liver disease. Current Visit: Yes Status: Acute Code(s): R74.8 - ABNORMAL LEVELS OF OTHER SERUM ENZYMES SNOMED Code(s): 488592759 (2) Abdominal pain Current Visit: Yes Status: Acute Code(s): R10.9 - UNSPECIFIED ABDOMINAL PAIN SNOMED Code(s): 38539833 Plan: Supportive care Okay for diet as tolerated Medical management per primary team Continue to monitor CBC, BMP, LFTs Liver serology ordered and negative the patient likely has a degree of underlying liver fibrosis and possibly cirrhosis based on imaging and labs with liver enzymes likely worsened in the setting of hypoperfusion, they're currently improving MiraLAX nightly will be added as the patient has been suffering from constipation Thank you for allowing us to participate in the care of the patient we will continue to follow
[2020-04-03] MEDS: polyethylene glycoL 3350 17 GM POWD.PACK PO SCH (22:06)
[2020-04-04] MEDS: MIDODRINE 5 MG TAB PO SCH ×3 (06:35→16:24)
[2020-04-04 07:29] LABS: Calcium 8.2 mg/dL (8.4-10.2); Magnesium 1.9 mg/dL (1.6-2.3); Potassium 3.2 mmol/L (3.5-5.1)
[2020-04-04] MEDS: IPRATROPIUM-ALBUTEROL 3 ML NEB INHALATION SCH ×4 (07:35→20:21)
[2020-04-04] MEDS ORDERED: POTASSIUM CHLORIDE ER 20 MEQ TAB.ER PO STA (08:24)
--- NOTE | 2020-04-04 08:43 | P.PN ---
Subjective Patient is seen in follow-up for acute kidney injury. Renal function stable. Good urine output. Maintained on IV Lasix and metolazone. Nonoliguric. Edema slightly better. Vital signs are stable. General: The patient appeared well nourished and normally developed. HEENT: Head exam is unremarkable. Neck is without jugular venous distension. LUNGS: Breath sounds decreased. HEART: Rate and Rhythm are regular. ABDOMEN: Soft, nontender. EXTREMITITES: 1+ edema. Objective - Vital Signs Vital signs: Vital Signs Temp 97.9 F 04/04/20 04:00 Pulse 85 04/04/20 07:45 Resp 15 04/04/20 04:00 BP 85/50 04/04/20 04:00 Pulse Ox 95 04/04/20 04:00 Intake & Output 04/03/20 04/04/20 04/04/20 18:59 06:59 18:59 Intake Total 840 690 Output Total 600 1000 Balance 240 -310 Weight 77 kg Intake: Oral 840 690 Output: Urine 600 1000 Other: Voiding Method Urinal Urinal - Labs CBC & Chem 7: 04/02/20 07:02 04/04/20 06:20 Labs: Abnormal Lab Results - Last 24 Hours (Table) 04/04/20 Range/Units 06:20 Sodium 132 L (137-145) mmol/L Potassium 3.2 L (3.5-5.1) mmol/L Chloride 90 L (98-107) mmol/L Carbon Dioxide 34 H (22-30) mmol/L Glucose 104 H (74-99) mg/dL Calcium 8.2 L (8.4-10.2) mg/dL Assessment and Plan Plan: Assessment: 1. Acute kidney injury secondary to ATN secondary to cardiorenal syndrome as well as contrast-induced acute kidney injury. Renal function stable. 2. Acute on chronic systolic CHF with ejection fraction of 25-30% with moderate to severe tricuspid regurgitation. 3. Volume overload. 4. 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 5. Hypervolemic hyponatremia. 6. Hypokalemia secondary to diuresis. Magnesium normal. Plan: Maintain IV Lasix 40 mg twice daily. Maintain metolazone 5 mg once daily. Encourage oral intake, particularly protein. 1200 mL fluid restriction. Replace potassium. 40 mEq today. Avoid nephrotoxins. Continue to monitor renal function and urine output as he received IV contrast again April 01.
--- NOTE | 2020-04-04 08:56 | P.PN ---
Subjective Patient is a pleasant 69-year-old male with known history of ischemic cardiomyopathy of around 30-35% is admitted for acute respiratory failure card iogenic shock from congestive heart failure exacerbation patient also has renal dysfunction from prerenal azotemia from congestive heart failure, patient to creatinine continue to improve. There was initial concern about contrast nephropathy although patient doesn't appear to have contrast nephropathy at this time. Patient has an AICD patient creatinine continue to improve patient also has hepatic congestion leading to elevated liver enzymes patient had an ultrasound of the liver which showed hepatocellular disease. Patient is presently not on any anticoagulation patient does have history of atrial fibrillation was on anticoagulation as an outpatient. Patient also has severe mitral regurgitation probably 1 A. fib probably will be discharged on Coumadin. Patient was given vitamin K because of significantly elevated INR. Patient is also on Zosyn because of her elevated lactic acid there was a concern about ischemic colitis because of which patient is on Zosyn patient has elevated white blood cell count although there is no clear evidence of ischemic colitis patient had elevated lactic acid most probably secondary to decreased organ perfusion secondary to his severe CHF and collagen injection. Patient also will be continued on antibiotics for now. There is no evidence of any other infection at this time. presently on 2 L of oxygen still short of breath 04/02/2020 Patient is still complaining of shortness of breath and patient is presently on 1.3 L of oxygen. Liver labs and creatinine continue to improve JVD did improve and is bit up compared to couple days ago but patient is already on empiric antibiotics Zosyn which will be continued for now. 04/03/2020 Patient creatinine continue to improve. Physical beneficial therapy will evaluate the patient. There is some swallowing issues we'll order a barium swallow. 04/04/2020 Patient the is being evaluated by speech therapy and patient will undergo barium fluoroscopy with video. Potassium is low which will be replaced liver enzymes improving. Patient probably can be started back on anticoagulation Constitutional: Denied any fatigue denied any fever. Cardio vascular: denied any chest pain, palpitations Gastrointestinal denied any nausea vomiting Pulmonary: As mentioned above Neurologic denied any new focal deficits All inpatient medications were reviewed and appropriate changes in these medications as dictated in the interval history and assessment and plan. Objective - Vital Signs Vital signs: Vital Signs Temp 97.9 F 04/04/20 04:00 Pulse 85 04/04/20 07:45 Resp 15 04/04/20 04:00 BP 85/50 01/18/21 04:00 Pulse Ox 95 04/04/20 04:00 Intake & Output 04/03/20 04/04/20 04/04/20 18:59 06:59 18:59 Intake Total 840 690 Output Total 600 1000 Balance 240 -310 Weight 77 kg Intake: Oral 840 690 Output: Urine 600 1000 Other: Voiding Method Urinal Urinal - Exam PHYSICAL EXAMINATION: GENERAL: The patient is alert and oriented x3, not in any acute distress. Well developed, well nourished. HEENT: Pupils are round and equally reacting to light. EOMI. No scleral icterus. No conjunctival pallor. Normocephalic, atraumatic. No pharyngeal erythema. No thyromegaly. CARDIOVASCULAR: S1 and S2 present. No murmurs, rubs, or gallops. JVD improved PULMONARY: Chest is clear to auscultation, no wheezing or crackles. ABDOMEN: Soft, nontender, nondistended, normoactive bowel sounds. No palpable organomegaly. MUSCULOSKELETAL: No joint swelling or deformity. EXTREMITIES: No cyanosis, clubbing, or pedal edema. NEUROLOGICAL: Gross neurological examination did not reveal any focal deficits. SKIN: No rashes. - Labs CBC & Chem 7: 04/02/20 07:02 04/04/20 06:20 Labs: Abnormal Lab Results - Last 24 Hours (Table) 04/04/20 Range/Units 06:20 Sodium 132 L (137-145) mmol/L Potassium 3.2 L (3.5-5.1) mmol/L Chloride 90 L (98-107) mmol/L Carbon Dioxide 34 H (22-30) mmol/L Glucose 104 H (74-99) mg/dL Calcium 8.2 L (8.4-10.2) mg/dL Assessment and Plan Plan: -Acute hypoxic respiratory failure secondary to CHF exacerbation. Chest x-ray condition to show pleural effusions and CHF although patient is clinically improving -Dysphagia will obtain barium swallow. -Cardiogenic shock: Improving continue with IV Lasix, shock improved -Elevated INR secondary to hepatic congestion poor by mouth intake and Xarelto of INR is about 1.5 today probably will need to start him on anticoagulation . -Congestive heart failure chronic systolic dysfunction with acute exacerbation patient has an AICD in place -Coronary artery disease with ischemic cardiomyopathy -Elevated liver enzymes secondary to hepatic congestion -Leukocytosis reactive without any clear evidence of infection possibility of ischemic colitis is low for now will continue with antibiotics -Severe mitral regurgitation -Hyperlipidemia -Persistent A. fib presently rate controlled continue with present rate control medications -Nicotine use: Counseling was provided - acute renal failure:: Secondary to prerenal azotemia from congestive heart failure exacerbation -Bilateral pleural effusions status post thoracentesis and pleural effusions are secondary to CHF -Elevated troponins secondary to acute renal failure and CHF
[2020-04-04] MEDS: METOPROLOL SUCCINATE (ER) 25 MG TAB.ER.24H PO SCH (09:11)
[2020-04-04] MEDS: FUROSEMIDE 10 MG/ML 4 ML VIAL IV SCH ×2 (09:11→20:04)
[2020-04-04] MEDS: SPIRONOLACTONE 25 MG TAB PO SCH (09:12)
[2020-04-04] MEDS: metOLazone 5 MG TAB PO SCH (09:14)
[2020-04-04] MEDS: PANTOPRAZOLE 40 MG TABLET PO SCH ×2 (09:14→20:04)
--- NOTE | 2020-04-04 09:27 | P.PN ---
Subjective Progress Note Date: 04/04/20 70-year-old male admitted with a diagnosis of acute on chronic systolic heart failure, with ischemic cardiomyopathy, an ejection fraction of 30-35% and severe MR and TR. The patient was also discovered to have severe mitral regurgitation, atrial fibrillation, congestive hepatopathy, possible abdominal sepsis, lactic acidemia, and possible mesenteric ischemia. The patient did have a mesenteric angiogram, which was normal. Clinically, he is doing better. Chest x-ray from April 02 shows persistent congestive heart failure. On 04/04/2020, the patient is being seen for a FU. The patient overall is improved and much better. The patient is on a combination of Lasix with IV lasix 40 mg q 12, Zaroxolyn and aldactone and the patient is well diuresing a combination of diuretics. He is currently on oxygen 1.5 L per minute nasal cannula. The neck fluid balance is negative over the past 48 hours. The labs revealed a BUN of 18 with a creatinine of 1.08. Sodium is at 132. Potassium level is at 3.2 which is being replaced. The last chest x-ray from 04/01/2020 showed CHF and bilateral pleural effusions. The patient also has a left-sided AICD which is in place. He is able to swallow and the patient had a barium swallow evaluation done today to evaluate his swallowing process. He continues to have edema in lower extremities bilaterally. There is bilirubin level is at 4.4 which is slightly lower from yesterday and his liver function tests are also improving and there is a steady drop in his AST which is down to 104 and ALT is down to 266. His INR is at 1.5 with a PT of 14.8. Objective - Vital Signs Vital signs: Vital Signs Temp 97.9 F 04/04/20 04:00 Pulse 85 04/04/20 07:45 Resp 15 04/04/20 04:00 BP 85/50 04/04/20 04:00 Pulse Ox 95 04/04/20 04:00 Intake & Output 04/03/20 04/04/20 04/04/20 18:59 06:59 18:59 Intake Total 840 690 Output Total 600 1000 Balance 240 -310 Weight 77 kg Intake: Oral 840 690 Output: Urine 600 1000 Other: Voiding Method Urinal Urinal - Exam No acute distress, oriented 3. No conversational dyspnea for use of accessory muscles. HEENT examination is grossly unremarkable. Mucous membranes are moist. No oral lesions. Neck supple. Full range of motion. No adenopathy thyromegaly or neck vein distention. Cardiovascular examination reveals irregular rhythm and rate. S1-S2 normal. No S3 or S4. A soft systolic murmur is noted. Heart rate is 92 bpm. Lungs are showing some wheezing and occasional crackles and diminished breath sounds in the right lung base. Her sounds are equal bilaterally. No adventitious lung sounds including wheezes rhonchi or crackles. Abdomen soft bowel sounds are heard. No masses or tenderness. Extremities are intact. No cyanosis clubbing or edema. Skin is without rash or lesion. Neurologic examination is brief but nonfocal. - Labs CBC & Chem 7: 04/02/20 07:02 04/04/20 06:20 Labs: Abnormal Lab Results - Last 24 Hours (Table) 04/04/20 Range/Units 06:20 Sodium 132 L (137-145) mmol/L Potassium 3.2 L (3.5-5.1) mmol/L Chloride 90 L (98-107) mmol/L Carbon Dioxide 34 H (22-30) mmol/L Glucose 104 H (74-99) mg/dL Calcium 8.2 L (8.4-10.2) mg/dL Assessment and Plan Plan: 1. Acute on chronic systolic heart failure, and the patient with ischemic cardiomyopathy and left ventricular dysfunction and ejection fraction of 30-35%. The patient is improving in terms of his fluid balance. There is still edema in lower extremities bilaterally. There is also a small to moderate-sized right-sided pleural effusion. He is on a combination of diuretics for now. 2. Cardiogenic shock, resolved. 3. Chronic atrial fibrillation anticoagulated with warfarin. Currently on no anticoagulants. His INR is at 1.5. He was taking Xarelto on an outpatient basis 4. Congestive hepatopathy.The LFTs are improving. The patient's bilirubin also improving. Clinically is jaundiced. 5. Jaundice secondary to above 6. Lactic acidosis related to hypoperfusion related to acute exacerbation of systolic CHF. 7. Rule out mesenteric ischemia and mesenteric angiogram was normal. 8. Cardiorenal syndrome. 9. Coumadin induced coagulopathy. Currently is off anticoagulation. She tells that he was taken Xarelto on outpatient basis. 10. History of coronary artery disease with previous stenting. 11. Hyperlipidemia. 12. History of hypertension. 13. Prior history of myocardial infarction. 14. Status post pacemaker insertion. 15. Severe mitral regurgitation. Plan: Currently, the patient's doing well. The patient's oxygen has been weaned down to 1.5 L/m by nasal cannula. Chest x-ray from the 16 continues to show persistent CHF. I'm going to order a follow-up chest x-ray for today. Meanwhile we'll keep him on the same doses of diuretics. No anticoagulants for now. Possible thoracentesis if there is ongoing significant effusion in the right lung on today's chest x-ray. Physical bilirubin and the liver function tests Clinically he is doing much better. His respiratory status is much improved. His overall prognosis though, is guarded.
--- NOTE | 2020-04-04 10:00 | XR ---
EXAMINATION TYPE: XR chest 1V portable DATE OF EXAM: 04/04/2020 CLINICAL HISTORY: Difficulty breathing and CHF progress study. Recent barium swallow. TECHNIQUE: Single AP portable upright view of the chest is obtained. COMPARISON: Chest x-ray from 2 days earlier and older studies. FINDINGS: Stable mild cardiomegaly with single lead pacemaker/defibrillator and additional left basi lar second single lead pacemaker/defibrillator. Persistent right greater than left bibasilar opacitie s. Persistent fpgn-sv-vcilhvva central interstitial edema bilaterally. Underlying scoliosis redemonst rated. IMPRESSION: Suspect persistent CHF exacerbation as there is mild cardiomegaly with small to moderate right greater then left pleural effusions and grpt-ya-[id number] interstitial edema bilaterally. There is associated bibasilar atelectasis and/or infiltrate. No significant change from most recent study.
[2020-04-04 10:20] LABS: Total Bilirubin 3.7 mg/dL (0.2-1.3); Total Protein 6.3 g/dL (6.3-8.2)
--- NOTE | 2020-04-04 10:44 | FL ---
EXAMINATION TYPE: FL barium swallow w video DATE OF EXAM: 04/04/2020 CLINICAL HISTORY: 70-year-old male rule out aspiration, patient with globus sensation and trouble swa llowing since 10 years old. TECHNIQUE: Deglutition study is performed utilizing thin liquid barium, honey and nectar thick liqui d barium, barium thick applesauce, and barium coated cracker. Total fluoroscopy time: 2 minutes 37 seconds Total images: None. Real-time fluoroscopy support was provided to speech pathology. COMPARISON: None. FINDINGS: The oral and pharyngeal phases show satisfactory initiation and propagation with all modalities teste d. The patient is edentulous. There is no evidence of penetration or aspiration with any modality te sted. No significant pharyngeal residue was appreciated. IMPRESSION: Functional swallow; no penetration or aspiration. Please refer to speech therapist notes for further details if necessary.
[2020-04-04] MEDS ORDERED: POTASSIUM CHLORIDE ER 20 MEQ TAB.ER PO ONE (11:00)
--- NOTE | 2020-04-04 12:37 | P.PN ---
Subjective Progress Note Date: 04/04/20 HISTORY OF PRESENT ILLNESS: Patient examined this morning at the bedside. He denies chest pain or pressure. He states he has minimal shortness of breath. He remains on IV lasix per nephrology. Potassium 3.2. Creatinine 1.08. INR from yesterday 1.5. He remains in atrial fibrillation with controlled ventricular rates. His anticoagulation remains on hold. PHYSICAL EXAM: VITAL SIGNS: Reviewed. GENERAL: Well-developed in no acute distress. NECK: Supple. No JVD or thyromegaly LUNGS: Respirations even and unlabored. Lungs diminished bilaterally. HEART: Irregular rate and rhythm. S1 and S2 heard. Systolic murmur noted EXTREMITIES: Normal range of motion. No clubbing or cyanosis. Peripheral pulses intact. 1+ bilateral lower extremity edema ASSESSMENT: 1. Shock of unclear etiology. Predominantly appears septic shock with in creased white blood cell count and lactic acidosis however he does have significant cardiomyopathy and at least moderate to severe MR and may be a component of cardiogenic shock. Dobutamine has been weaned. 2. Acute liver injury, likely shock liver with coagulopathy. Improving. Possible additional component of amiodarone liver injury. Amiodarone discontinued 3. Ischemic cardiomyopathy with EF 25-30% 4. CAD with known history of FOOT TENDER of RCA with [id number]-[id number] collaterals, most recent heart catheterization 02/2020 5. At least moderate to severe posteriorly directed mitral regurgitation with posterior leaflet tethering. Echo this admission showed moderate mitral regurgitation. 6. Moderate to severe tricuspid regurgitation 7. History of hypertension 8. Coagulopathy, improving 9. Acute kidney injury likely related to contrast-induced nephropathy from CTA as well as ATN from hypotension 10. Anemia 11. Elevated troponin, likely type II mechanism from shock 12. Paroyxsmal A. fib 13. AICD present 14. History of ventricular tachycardia status post ablation and AICD, previousl y on amiodarone 15. Persistent nausea, vomiting, abdominal pain since November. May be a component of mesenteric ischemia. PLAN: Continue telemetry monitoring Repeat INR in a.m. anticipate resuming anticoagulation tomorrow Continue IV Lasix per nephrology Further recommendations pending patient's course Nurse practitioner note has been reviewed by physician. Signing provider agrees with the documented findings, assessment, and plan of care. Objective - Vital Signs Vital signs: Vital Signs Temp 98 F 04/04/20 12:00 Pulse 81 04/04/20 12:00 Resp 16 04/04/20 12:00 BP 87/61 04/04/20 12:00 Pulse Ox 95 04/04/20 12:00 Intake & Output 04/03/20 04/04/20 04/04/20 18:59 06:59 18:59 Intake Total 840 690 Output Total 600 1000 Balance 240 -310 Weight 77 kg 77 kg Intake: Oral 840 690 Output: Urine 600 1000 Other: Voiding Method Urinal Urinal Urinal - Labs CBC & Chem 7: 04/02/20 07:02 04/04/20 06:20 Labs: Abnormal Lab Results - Last 24 Hours (Table) 04/04/20 Range/Units 06:20 Sodium 132 L (137-145) mmol/L Potassium 3.2 L (3.5-5.1) mmol/L Chloride 90 L (98-107) mmol/L Carbon Dioxide 34 H (22-30) mmol/L Glucose 104 H (74-99) mg/dL Calcium 8.2 L (8.4-10.2) mg/dL Total Bilirubin 3.7 H (0.2-1.3) mg/dL AST 81 H (17-59) U/L ALT 232 H (4-49) U/L Alkaline Phosphatase 225 H (38-126) U/L Albumin 3.0 L (3.5-5.0) g/dL
--- NOTE | 2020-04-04 13:35 | P.PN ---
Subjective Progress Note Date: 04/04/20 Principal diagnosis: Elevated LFTs and jaundice, abdominal pain This is a 70-year-old white male who is admitted with a diagnosis of acute on chronic systolic heart failure, with ischemic cardiomyopathy with an ejection fraction of 30-35% and severe MR and TR. The patient was also discovered having severe mitral regurgitation, atrial fibrillation and congestive up adenopathy possible abdominal sepsis, lactic acidemia and possible mesenteric ischemia. The patient since has had a mesenteric angiogram which was normal. His liver enzymes continued to trend down. He denies any further abdominal pain, nausea or vomiting. He did start reporting having some difficulty with swallowing. Feels like food may get hung up at his Zach's apple. He underwent a modified barium swallow that showed functional swallow with no penetration or aspiration. Speech therapist's reports "Pt demonstrated a functional oropharyngeal swallow. There was evidence of slight valleculae residuals noted intermittently during initial portion of study; however, resolved as study progressed. Recommended continuing regular diet/thin liquids as tolerated. No further skilled ST services warranted at this time." Objective - Vital Signs Vital signs: Vital Signs Temp 98 F 04/04/20 12:00 Pulse 82 04/04/20 12:57 Resp 16 04/04/20 12:57 BP 87/61 04/04/20 12:00 Pulse Ox 95 04/04/20 12:00 Intake & Output 04/03/20 04/04/20 04/04/20 18:59 06:59 18:59 Intake Total 840 690 Output Total 600 1000 Balance 240 -310 Weight 77 kg 77 kg Intake: Oral 840 690 Output: Urine 600 1000 Other: Voiding Method Urinal Urinal Urinal - Exam General appearance: The patient is alert, oriented, in no acute distress. HET: Head is normocephalic and atraumatic. Conjunctiva pink. Sclera anicteric. Neck: Supple without lymphadenopathy. Abdomen: Soft, nontender, nondistended with normal bowel sounds. No guarding or rigidity. Extremities: Mildly jaundiced. No pedal edema Neurological: No focal deficits. Alert and oriented 3. - Labs CBC & Chem 7: 04/02/20 07:02 04/04/20 06:20 Labs: Abnormal Lab Results - Last 24 Hours (Table) 04/04/20 Range/Units 06:20 Sodium 132 L (137-145) mmol/L Potassium 3.2 L (3.5-5.1) mmol/L Chloride 90 L (98-107) mmol/L Carbon Dioxide 34 H (22-30) mmol/L Glucose 104 H (74-99) mg/dL Calcium 8.2 L (8.4-10.2) mg/dL Total Bilirubin 3.7 H (0.2-1.3) mg/dL AST 81 H (17-59) U/L ALT 232 H (4-49) U/L Alkaline Phosphatase 225 H (38-126) U/L Albumin 3.0 L (3.5-5.0) g/dL Assessment and Plan (1) Transaminitis Narrative/Plan: This is s a patient who presented to the hospital with worsening shortness of breath diffuse abdominal pain associated with nausea, vomiting and not feeling well since November of last year. He's had a weight loss of approximately 20 pounds. At the time of admission to the hospital he was noted to have leukocytosis and increased serum transaminases as well as bilirubin up to 3.8 area computed tomography scan and ultrasound showed no evidence of gallstones or biliary ductal dilation. He has a long-standing history of ischemic cardiomyopathy with an ejection fraction of 30% and status post AICD implantation. He was also noted to have lactic acidosis at presentation. The clinical picture is more consistent with a global hypoperfusion causing ischemic hepatitis impossibility of small bowel ischemia cannot be excluded. Possible cirrhosis of the liver based on imaging studies, the CAT scan showed nodular appearing liver which appears to be decompensated with the current clinical situation. Daily LFTs, LFTs continue to trend down. Patient also states he has been a daily drinker of 2-3 beers a day for several years, therefore we will order the ultrasound of the liver. Current Visit: Yes Status: Acute Priority: High Code(s): R74.01 - ELEVATION OF LEVELS OF LIVER TRANSAMINASE LEVELS SNOMED Code(s): 020800949 (2) Abdominal pain Current Visit: Yes Status: Acute Code(s): R10.9 - UNSPECIFIED ABDOMINAL PAIN SNOMED Code(s): 29735338 (3) Ascites Narrative/Plan: Small amount of ascites noted on CT of the abdomen Current Visit: Yes Status: Acute Code(s): R18.8 - OTHER ASCITES SNOMED Code(s): 522095355 Plan: 1. Continue supportive and symptomatic care 2. Cold management per primary team 3. Diet as tolerated 4. Liver serology has been ordered and negative the patient likely has a degree of underlying liver fibrosis, possibly cirrhosis based on imaging and labs with liver enzymes likely worsened in the setting of hypo-profusion, currently improving 5. Avoid hepatotoxic medications 6. Daily CBC, CMP 7. MiraLAX nightly, may increase to twice a day for constipation Dr. Curry I agree with the dictator's note, documented as a scribe by Yvrose Duke.
--- NOTE | 2020-04-04 14:15 | P.PN ---
Subjective Progress Note Date: 04/04/20 Principal diagnosis: pulmonary edema, transaminitis, coagulopathy In follow-up today patient states that he has been walking from the bed to the window seat, he is eating and tolerating without nausea, denies any current bleeding, no acute pain to report. He is feeling a little more alert and oriented every day. Objective - Vital Signs Vital signs: Vital Signs Temp 98 F 04/04/20 12:00 Pulse 82 04/04/20 12:57 Resp 16 04/04/20 12:57 BP 87/61 04/04/20 12:00 Pulse Ox 95 04/04/20 12:00 Intake & Output 04/03/20 04/04/20 04/04/20 18:59 06:59 18:59 Intake Total 840 690 Output Total 600 1000 Balance 240 -310 Weight 77 kg 77 kg Intake: Oral 840 690 Output: Urine 600 1000 Other: Voiding Method Urinal Urinal Urinal - Constitutional General appearance: Present: average body habitus, cooperative, no acute distress - EENT Eyes: Present: EOMI, scleral icterus (Improving) ENT: Present: hearing grossly normal - Respiratory Respiratory: right: diminished (Entire right lung), dullness, left: CTA - Cardiovascular Heart sounds: normal: S1, S2 Abnormal Heart Sounds: Absent: systolic murmur, diastolic murmur, rub, S3 Gallop, S4 Gallop, click, other - Peripheral edema leg Peripheral Edema: bilateral: None - Gastrointestinal General gastrointestinal: Present: normal bowel sounds, soft - Integumentary Integumentary: Present: jaundiced - Neurologic Neurologic: Present: CNII-XII intact - Musculoskeletal Musculoskeletal: Present: generalized weakness, strength equal bilaterally - Psychiatric Psychiatric: Present: A&O x's 3, appropriate affect, intact judgment & insight - Labs CBC & Chem 7: 04/02/20 07:02 04/04/20 06:20 Labs: Abnormal Lab Results - Last 24 Hours (Table) 04/04/20 Range/Units 06:20 Sodium 132 L (137-145) mmol/L Potassium 3.2 L (3.5-5.1) mmol/L Chloride 90 L (98-107) mmol/L Carbon Dioxide 34 H (22-30) mmol/L Glucose 104 H (74-99) mg/dL Calcium 8.2 L (8.4-10.2) mg/dL Total Bilirubin 3.7 H (0.2-1.3) mg/dL AST 81 H (17-59) U/L ALT 232 H (4-49) U/L Alkaline Phosphatase 225 H (38-126) U/L Albumin 3.0 L (3.5-5.0) g/dL - Imaging and Cardiology Status post barium swallow, and report reviewed-no penetration or aspiration Assessment and Plan (1) Coagulopathy Narrative/Plan: 2/2 liver dysfunction and being on anticoagulation. Suspect shock to the organs when pt had severe hypotension. Pt has moderate to severe cardiovascular disease. Vit K daily for total of 3 doses-completed last week, INR 1.5 today. INR will have to be monitored because, patient may end up being auto anticoagulated because of liver disease. Hgb monitoring Cont coags daily Current Visit: Yes Status: Acute Priority: High Code(s): D68.9 - COAGULATION DEFECT, UNSPECIFIED SNOMED Code(s): 08058400 (2) Transaminitis Narrative/Plan: LFTs continuing to improve, bilirubin showing some slight improvement. He is being followed by Gastroenterology. Current Visit: Yes Status: Acute Priority: High Code(s): R74.01 - ELEVATION OF LEVELS OF LIVER TRANSAMINASE LEVELS SNOMED Code(s): 583488516 Plan: Discussed case with Attending. The goal is to get patient back on anticoagulation. Patient was previously on Xarelto. 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 Reviewed cautions for the use of Xarelto. Xarelto caution with child Love class B or C. Eliquis is cautioned in class C. Recommendation would be for use of eliquis over Xarelto at this time. Also, need to monitor patient's coags case the patient is going to end up anticoagulated because of liver disease. Coags today and daily
[2020-04-04 14:37] LABS: INR 1.2 (<1.2); Prothrombin Time 12.2 sec (9.0-12.0)
[2020-04-04] MEDS: polyethylene glycoL 3350 17 GM POWD.PACK PO SCH (20:04)
[2020-04-05] MEDS: MIDODRINE 5 MG TAB PO SCH ×3 (06:42→17:16)
[2020-04-05] MEDS: IPRATROPIUM-ALBUTEROL 3 ML NEB INHALATION SCH ×4 (07:31→20:16)
[2020-04-05 08:08] LABS: INR 1.2 (<1.2); Prothrombin Time 12.5 sec (9.0-12.0)
[2020-04-05 08:13] LABS: Calcium 8.4 mg/dL (8.4-10.2); Magnesium 1.8 mg/dL (1.6-2.3); Potassium 4.2 mmol/L (3.5-5.1)
[2020-04-05] MEDS: metOLazone 5 MG TAB PO SCH (08:57)
[2020-04-05] MEDS: METOPROLOL SUCCINATE (ER) 25 MG TAB.ER.24H PO SCH (08:57)
[2020-04-05] MEDS: SPIRONOLACTONE 25 MG TAB PO SCH (08:57)
[2020-04-05] MEDS: FUROSEMIDE 10 MG/ML 4 ML VIAL IV SCH (08:57)
[2020-04-05] MEDS: PANTOPRAZOLE 40 MG TABLET PO SCH ×2 (08:57→21:37)
[2020-04-05] MEDS: PROCHLORPERAZINE INJ 10 MG/2 ML VIAL IVP PRN (09:01)
[2020-04-05 09:07] LABS: Total Bilirubin 3.5 mg/dL (0.2-1.3)
--- NOTE | 2020-04-05 09:22 | P.PN ---
Subjective Progress Note Date: 04/05/20 70-year-old male admitted with a diagnosis of acute on chronic systolic heart failure, with ischemic cardiomyopathy, an ejection fraction of 30-35% and severe MR and TR. The patient was also discovered to have severe mitral regurgitation, atrial fibrillation, congestive hepatopathy, possible abdominal sepsis, lactic acidemia, and possible mesenteric ischemia. The patient did have a mesenteric angiogram, which was normal. Clinically, he is doing better. Chest x-ray from April 02 shows persistent congestive heart failure. On 04/04/2020, the patient is being seen for a FU. The patient overall is improved and much better. The patient is on a combination of Lasix with IV lasix 40 mg q 12, Zaroxolyn and aldactone and the patient is well diuresing a combination of diuretics. He is currently on oxygen 1.5 L per minute nasal cannula. The neck fluid balance is negative over the past 48 hours. The labs revealed a BUN of 18 with a creatinine of 1.08. Sodium is at 132. Potassium level is at 3.2 which is being replaced. The last chest x-ray from 04/01/2020 showed CHF and bilateral pleural effusions. The patient also has a left-sided AICD which is in place. He is able to swallow and the patient had a barium swallow evaluation done today to evaluate his swallowing process. He continues to have edema in lower extremities bilaterally. There is bilirubin level is at 4.4 which is slightly lower from yesterday and his liver function tests are also improving and there is a steady drop in his AST which is down to 104 and ALT is down to 266. His INR is at 1.5 with a PT of 14.8. On 04/05/2020, the patient continues to be on IV Lasix 40 mg every 12 hours, Zaroxolyn and Aldactone. He is fluid balance is negative for 60 mL over the past 24 hours. He is currently on oxygen at 1.5 L which is the same as yesterday. His creatinine is up to 1.4, and the patient seems to be prerenal an d he has developed an acute kidney injury due to aggressive diuresis. His sodium level is at 140. BUN is at 25. The chest x-ray from yesterday showed bilateral pleural effusions. The patient also has AICD over the left anterior chest area. He also underwent a swallow evaluation yesterday and the patient's was found to have no penetration and no aspiration. No cardiac arrhythmias for now. A this patient oral 40 mg twice a day. Objective - Vital Signs Vital signs: Vital Signs Temp 97.7 F 04/05/20 08:55 Pulse 100 04/05/20 08:55 Resp 18 04/05/20 08:55 BP 109/70 04/05/20 08:55 Pulse Ox 95 04/05/20 08:55 Intake & Output 04/04/20 04/05/20 04/05/20 18:59 06:59 18:59 Intake Total 960 480 240 Output Total 700 1200 Balance 260 -720 240 Weight 77 kg 70 kg Intake: Oral 960 480 240 Output: Urine 700 1200 Other: Voiding Method Urinal Urinal # Voids 1 - Exam No acute distress, oriented 3. No conversational dyspnea for use of accessory muscles. HEENT examination is grossly unremarkable. Mucous membranes are moist. No oral lesions. Neck supple. Full range of motion. No adenopathy thyromegaly or neck vein d istention. Cardiovascular examination reveals irregular rhythm and rate. S1-S2 normal. No S3 or S4. A soft systolic murmur is noted. Heart rate is 92 bpm. Lungs are showing some wheezing and occasional crackles and diminished breath sounds in the right lung base. Her sounds are equal bilaterally. No adventitious lung sounds including wheezes rhonchi or crackles. Abdomen soft bowel sounds are heard. No masses or tenderness. Extremities are intact. No cyanosis clubbing or edema. Skin is without rash or lesion. Neurologic examination is brief but nonfocal. - Labs CBC & Chem 7: 04/02/20 07:02 04/05/20 06:46 Labs: Abnormal Lab Results - Last 24 Hours (Table) 04/04/20 04/04/20 04/05/20 Range/Units 06:20 09:28 06:46 PT 12.2 H (9.0-12.0) sec INR 1.2 H (<1.2) Sodium 132 L 130 L (137-145) mmol/L Potassium 3.2 L (3.5-5.1) mmol/L Chloride 90 L 88 L (98-107) mmol/L Carbon Dioxide 34 H 33 H (22-30) mmol/L BUN 25 H (9-20) mg/dL Creatinine 1.43 H (0.66-1.25) mg/dL Glucose 104 H 128 H (74-99) mg/dL Calcium 8.2 L (8.4-10.2) mg/dL Total Bilirubin 3.7 H (0.2-1.3) mg/dL AST 81 H (17-59) U/L ALT 232 H (4-49) U/L Alkaline Phosphatase 225 H (38-126) U/L Albumin 3.0 L (3.5-5.0) g/dL 04/05/20 04/05/20 Range/Units 06:46 06:46 PT 12.5 H (9.0-12.0) sec INR 1.2 H (<1.2) Sodium (137-145) mmol/L Potassium (3.5-5.1) mmol/L Chloride (98-107) mmol/L Carbon Dioxide (22-30) mmol/L BUN (9-20) mg/dL Creatinine (0.66-1.25) mg/dL Glucose (74-99) mg/dL Calcium (8.4-10.2) mg/dL Total Bilirubin 3.5 H (0.2-1.3) mg/dL AST 66 H (17-59) U/L ALT 179 H (4-49) U/L Alkaline Phosphatase 216 H (38-126) U/L Albumin (3.5-5.0) g/dL Assessment and Plan Plan: 1. Acute on chronic systolic heart failure, and the patient with ischemic cardiomyopathy and left ventricular dysfunction and ejection fraction of 30-35%. The patient is improving in terms of his fluid balance. There is still edema in lower extremities bilaterally. There is also a small to moderate-sized right-sided pleural effusion. He is on a combination of diuretics for now. She has become prerenal. The patient has been switched to oral Lasix. On examination he does have still persistent bilateral pleural effusions. May consider thoracentesis on today's evaluation. 2. Cardiogenic shock, resolved. 3. Chronic atrial fibrillation anticoagulated with warfarin. Currently on no anticoagulants. His INR is at 1.5. He was taking Xarelto on an outpatient basis 4. Congestive hepatopathy.The LFTs are improving. The patient's bilirubin also improving. Clinically is jaundiced. 5. Jaundice secondary to above and his bilirubin level is also improving. 6. Lactic acidosis related to hypoperfusion related to acute exacerbation of systolic CHF. 7. Rule out mesenteric ischemia and mesenteric angiogram was normal. 8. Cardiorenal syndrome. 9. Coumadin induced coagulopathy. Currently is off anticoagulation. She tells that he was taken Xarelto on outpatient basis. 10. History of coronary artery disease with previous stenting. 11. Hyperlipidemia. 12. History of hypertension. 13. Prior history of myocardial infarction. 14. Status post pacemaker insertion. 15. Severe mitral regurgitation. Plan: Currently, the patient's doing well. The patient's oxygen has been weaned down to 1.5 L/m by nasal cannula. Obtain ultrasound of the chest to marked for any pleural effusions May come back later on for a thoracentesis if there is sizable pleural effusions Patient has been placed on oral Lasix in combination with Zaroxolyn and Aldactone Monitor renal function Renal function is up compared to yesterday Bilirubin is improving Clinically he is doing much better. His respiratory status is much improved. His overall prognosis though, is guarded.
--- NOTE | 2020-04-05 09:41 | P.PN ---
Subjective Patient is seen in follow-up for acute kidney injury. Renal function worse from diuresis. Good urine output. Maintained on IV Lasix and metolazone. Nonoliguric. Edema stable. Vital signs are stable. General: The patient appeared well nourished and normally developed. HEENT: Head exam is unremarkable. Neck is without jugular venous distension. LUNGS: Breath sounds decreased. HEART: Rate and Rhythm are regular. ABDOMEN: Soft, nontender. EXTREMITITES: 1+ edema. Objective - Vital Signs Vital signs: Vital Signs Temp 97.7 F 04/05/20 08:55 Pulse 100 04/05/20 08:55 Resp 18 04/05/20 08:55 BP 109/70 04/05/20 08:55 Pulse Ox 95 04/05/20 08:55 Intake & Output 04/04/20 04/05/20 04/05/20 18:59 06:59 18:59 Intake Total 960 480 240 Output Total 700 1200 Balance 260 -720 240 Weight 77 kg 70 kg Intake: Oral 960 480 240 Output: Urine 700 1200 Other: Voiding Method Urinal Urinal # Voids 1 - Labs CBC & Chem 7: 04/02/20 07:02 04/05/20 06:46 Labs: Abnormal Lab Results - Last 24 Hours (Table) 04/04/20 04/04/20 04/05/20 Range/Units 06:20 09:28 06:46 PT 12.2 H (9.0-12.0) sec INR 1.2 H (<1.2) Sodium 130 L (137-145) mmol/L Chloride 88 L (98-107) mmol/L Carbon Dioxide 33 H (22-30) mmol/L BUN 25 H (9-20) mg/dL Creatinine 1.43 H (0.66-1.25) mg/dL Glucose 128 H (74-99) mg/dL Total Bilirubin 3.7 H (0.2-1.3) mg/dL AST 81 H (17-59) U/L ALT 232 H (4-49) U/L Alkaline Phosphatase 225 H (38-126) U/L Albumin 3.0 L (3.5-5.0) g/dL 04/05/20 04/05/20 Range/Units 06:46 06:46 PT 12.5 H (9.0-12.0) sec INR 1.2 H (<1.2) Sodium (137-145) mmol/L Chloride (98-107) mmol/L Carbon Dioxide (22-30) mmol/L BUN (9-20) mg/dL Creatinine (0.66-1.25) mg/dL Glucose (74-99) mg/dL Total Bilirubin 3.5 H (0.2-1.3) mg/dL AST 66 H (17-59) U/L ALT 179 H (4-49) U/L Alkaline Phosphatase 216 H (38-126) U/L Albumin (3.5-5.0) g/dL Assessment and Plan Plan: Assessment: 1. Acute kidney injury secondary to ATN secondary to cardiorenal syndrome as well as contrast-induced acute kidney injury. Renal function worse from diuresis - cr 1.43 today. 2. Acute on chronic systolic CHF with ejection fraction of 25-30% with moderate to severe tricuspid regurgitation. 3. Volume overload. 4. 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 5. Hypervolemic hyponatremia. 6. Hypokalemia secondary to diuresis. Magnesium normal. Plan: Stop IV Lasix and metolazone. Start Demadex 40 mg orally once daily. Encourage oral intake, particularly protein. 1200 mL fluid restriction. Avoid nephrotoxins.
--- NOTE | 2020-04-05 10:07 | US ---
EXAMINATION TYPE: US chest DATE OF EXAM: 04/05/2020 COMPARISON: NONE CLINICAL HISTORY: CHF. Pleural effusion TECHNIQUE: Targeted ultrasound of the posterior lower bilateral hemithoraces EXAM MEASUREMENTS: Right Pleural Effusion pocket size: 10.3 cm Right skin surface to fluid distance: 2.0 cm Left Pleural Effusion pocket size: 9.7 cm Left skin surface to fluid distance: 2.3 cm Right side marked for possible thoracentesis outside the dept. Left side marked for possible thoracentesis outside the dept. Pulmonologists are able to review the images in the patient?s EMR. IMPRESSIONS: 1. Large bilateral pleural effusion.
[2020-04-05] MEDS: TORSEMIDE 20 MG TAB PO SCH (10:08)
[2020-04-05] MEDS: polyethylene glycoL 3350 17 GM POWD.PACK PO SCH ×2 (10:09→21:37)
--- NOTE | 2020-04-05 10:20 | P.PN ---
Subjective Patient is a pleasant 69-year-old male with known history of ischemic cardiomyopathy of around 30-35% is admitted for acute respiratory failure card iogenic shock from congestive heart failure exacerbation patient also has renal dysfunction from prerenal azotemia from congestive heart failure, patient to creatinine continue to improve. There was initial concern about contrast nephropathy although patient doesn't appear to have contrast nephropathy at this time. Patient has an AICD patient creatinine continue to improve patient also has hepatic congestion leading to elevated liver enzymes patient had an ultrasound of the liver which showed hepatocellular disease. Patient is presently not on any anticoagulation patient does have history of atrial fibrillation was on anticoagulation as an outpatient. Patient also has severe mitral regurgitation probably 1 A. fib probably will be discharged on Coumadin. Patient was given vitamin K because of significantly elevated INR. Patient is also on Zosyn because of her elevated lactic acid there was a concern about ischemic colitis because of which patient is on Zosyn patient has elevated white blood cell count although there is no clear evidence of ischemic colitis patient had elevated lactic acid most probably secondary to decreased organ perfusion secondary to his severe CHF and collagen injection. Patient also will be continued on antibiotics for now. There is no evidence of any other infection at this time. presently on 2 L of oxygen still short of breath 04/02/2020 Patient is still complaining of shortness of breath and patient is presently on 1.3 L of oxygen. Liver labs and creatinine continue to improve JVD did improve and is bit up compared to couple days ago but patient is already on empiric antibiotics Zosyn which will be continued for now. 04/03/2020 Patient creatinine continue to improve. Physical beneficial therapy will evaluate the patient. There is some swallowing issues we'll order a barium swallow. 04/04/2020 Patient the is being evaluated by speech therapy and patient will undergo barium fluoroscopy with video. Potassium is low which will be replaced liver enzymes improving. Patient probably can be started back on anticoagulation 04/05/2020 Patient's sodium is bit worse today along with worsening of serum creatinine patient is a probably diuresed excessively. Patient diuretics were switched to oral Demadex, metolazone was discontinued. Liver enzymes continued to improve patient was started on Eliquis. Physical therapy and occupational therapy evaluated the patient is recommending home care I believe he will benefit from subacute rehabilitation. Remains on 1.5 L of oxygen still complaining of some shortness of breath mostly tiredness and weakness. Probably his oxygen can be discontinued today. Patient is complaining of some swelling around the glans penis Constitutional: Denied any fatigue denied any fever. Cardio vascular: denied any chest pain, palpitations Gastrointestinal denied any nausea vomiting Pulmonary: As mentioned above Neurologic denied any new focal deficits All inpatient medications were reviewed and appropriate changes in these medications as dictated in the interval history and assessment and plan. Objective - Vital Signs Vital signs: Vital Signs Temp 97.7 F 04/05/20 08:55 Pulse 100 04/05/20 08:55 Resp 18 04/05/20 08:55 BP 109/70 04/05/20 08:55 Pulse Ox 95 04/05/20 08:55 Intake & Output 04/04/20 04/05/20 04/05/20 18:59 06:59 18:59 Intake Total 960 480 315 Output Total 700 1200 Balance 260 -720 315 Weight 77 kg 70 kg Intake: IV 75 0.9 NaCl- 75 Oral 960 480 240 Output: Urine 700 1200 Other: Voiding Method Urinal Urinal Urinal # Voids 1 - Exam PHYSICAL EXAMINATION: GENERAL: The patient is alert and oriented x3, not in any acute distress. Well developed, well nourished. HEENT: Pupils are round and equally reacting to light. EOMI. No scleral icterus. No conjunctival pallor. Normocephalic, atraumatic. No pharyngeal erythema. No thyromegaly. CARDIOVASCULAR: S1 and S2 present. No murmurs, rubs, or gallops. No JVD PULMONARY: Chest is clear to auscultation, no wheezing or crackles. ABDOMEN: Soft, nontender, nondistended, normoactive bowel sounds. No palpable organomegaly. MUSCULOSKELETAL: No joint swelling or deformity. EXTREMITIES: No cyanosis, clubbing, mild ankle edema NEUROLOGICAL: Gross neurological examination did not reveal any focal deficits. SKIN: No rashes. - Labs CBC & Chem 7: 04/02/20 07:02 04/05/20 06:46 Labs: Abnormal Lab Results - Last 24 Hours (Table) 04/04/20 04/04/20 04/05/20 Range/Units 06:20 09:28 06:46 PT 12.2 H (9.0-12.0) sec INR 1.2 H (<1.2) Sodium 130 L (137-145) mmol/L Chloride 88 L (98-107) mmol/L Carbon Dioxide 33 H (22-30) mmol/L BUN 25 H (9-20) mg/dL Creatinine 1.43 H (0.66-1.25) mg/dL Glucose 128 H (74-99) mg/dL Total Bilirubin 3.7 H (0.2-1.3) mg/dL AST 81 H (17-59) U/L ALT 232 H (4-49) U/L Alkaline Phosphatase 225 H (38-126) U/L Albumin 3.0 L (3.5-5.0) g/dL 04/05/20 04/05/20 Range/Units 06:46 06:46 PT 12.5 H (9.0-12.0) sec INR 1.2 H (<1.2) Sodium (137-145) mmol/L Chloride (98-107) mmol/L Carbon Dioxide (22-30) mmol/L BUN (9-20) mg/dL Creatinine (0.66-1.25) mg/dL Glucose (74-99) mg/dL Total Bilirubin 3.5 H (0.2-1.3) mg/dL AST 66 H (17-59) U/L ALT 179 H (4-49) U/L Alkaline Phosphatase 216 H (38-126) U/L Albumin (3.5-5.0) g/dL Assessment and Plan Plan: -Acute hypoxic respiratory failure secondary to CHF exacerbation. Significantly improved CHF chest x-ray from yesterday was showing significant congestion. Was also showing bilateral pleural effusions ultrasound did show some bilateral pleural effusions. -Dysphagia : Did well with the barium follow-through no issues with dysphagia anymore -Cardiogenic shock: Shock improved patient is presently on diuretics that his Demadex oral -Acute renal failure: Presently secondary to excessive diuresis being switched to oral diuretics as mentioned above -Elevated INR secondary to hepatic congestion e and Xarelto , improved INR. Patient was started on Eliquis. -Congestive heart failure chronic systolic dysfunction with acute exacerbation patient has an AICD in place -Coronary artery disease with ischemic cardiomyopathy -Elevated liver enzymes secondary to hepatic congestion -Leukocytosis reactive without any clear evidence of infection possibility of ischemic colitis from antibiotics were discontinued completed antibiotic therapy -Severe mitral regurgitation -Hyperlipidemia -Persistent A. fib presently rate controlled continue with present rate control medications -Nicotine use: Counseling was provided -Bilateral pleural effusions status post thoracentesis and pleural effusions are secondary to CHF. Continues to have some pleural effusions -Elevated troponins secondary to acute renal failure and CHF
--- NOTE | 2020-04-05 13:03 | P.PN ---
Subjective Progress Note Date: 04/05/20 Principal diagnosis: Elevated LFTs and jaundice, abdominal pain This is a 70-year-old white male who is admitted with a diagnosis of acute on chronic systolic heart failure, with ischemic cardiomyopathy with an ejection fraction of 30-35% and severe MR and TR. The patient was also discovered having severe mitral regurgitation, atrial fibrillation and congestive up adenopathy possible abdominal sepsis, lactic acidemia and possible mesenteric ischemia. The patient since has had a mesenteric angiogram which was normal. His liver enzymes continued to trend down. He did start reporting having some difficulty with swallowing but today he states that his been ongoing for years. Feels like food may get hung up at his [place]. He underwent a modified barium swallow that showed functional swallow with no penetration or aspiration. Speech therapist's reports "Pt demonstrated a functional oropharyngeal swallow. There was evidence of slight valleculae residuals noted intermittently during initial portion of study; however, resolved as study progressed. Recommended continuing regular diet/thin liquids as tolerated. No further skilled ST services warranted at this time." Today he states he is feeling better, he denies any abdominal pain, nausea, or vomiting. Reports no bowel movement, but positive flatus. Objective - Vital Signs Vital signs: Vital Signs Temp 98.0 F 04/05/20 04:00 Pulse 80 04/05/20 07:44 Resp 16 04/05/20 04:00 BP 92/53 04/05/20 04:00 Pulse Ox 92 L 04/05/20 04:00 Intake & Output 04/04/20 04/05/20 04/05/20 18:59 06:59 18:59 Intake Total 960 480 240 Output Total 700 1200 Balance 260 -720 240 Weight 77 kg 70 kg Intake: Oral 960 480 240 Output: Urine 700 1200 Other: Voiding Method Urinal Urinal # Voids 1 - Exam General appearance: The patient is alert, oriented, in no acute distress. HET: Head is normocephalic and atraumatic. Conjunctiva pink. Sclera anicteric. Neck: Supple without lymphadenopathy. Abdomen: Soft, nontender, nondistended with normal bowel sounds. No guarding or rigidity. Extremities: Mildly jaundiced. No pedal edema Neurological: No focal deficits. Alert and oriented 3. - Labs CBC & Chem 7: 04/02/20 07:02 04/05/20 06:46 Labs: Abnormal Lab Results - Last 24 Hours (Table) 04/04/20 04/04/20 04/05/20 Range/Units 06:20 09:28 06:46 PT 12.2 H (9.0-12.0) sec INR 1.2 H (<1.2) Sodium 132 L 130 L (137-145) mmol/L Potassium 3.2 L (3.5-5.1) mmol/L Chloride 90 L 88 L (98-107) mmol/L Carbon Dioxide 34 H 33 H (22-30) mmol/L BUN 25 H (9-20) mg/dL Creatinine 1.43 H (0.66-1.25) mg/dL Glucose 104 H 128 H (74-99) mg/dL Calcium 8.2 L (8.4-10.2) mg/dL Total Bilirubin 3.7 H (0.2-1.3) mg/dL AST 81 H (17-59) U/L ALT 232 H (4-49) U/L Alkaline Phosphatase 225 H (38-126) U/L Albumin 3.0 L (3.5-5.0) g/dL 04/05/20 Range/Units 06:46 PT 12.5 H (9.0-12.0) sec INR 1.2 H (<1.2) Sodium (137-145) mmol/L Potassium (3.5-5.1) mmol/L Chloride (98-107) mmol/L Carbon Dioxide (22-30) mmol/L BUN (9-20) mg/dL Creatinine (0.66-1.25) mg/dL Glucose (74-99) mg/dL Calcium (8.4-10.2) mg/dL Total Bilirubin (0.2-1.3) mg/dL AST (17-59) U/L ALT (4-49) U/L Alkaline Phosphatase (38-126) U/L Albumin (3.5-5.0) g/dL Assessment and Plan (1) Transaminitis Narrative/Plan: This is s a patient who presented to the hospital with worsening shortness of breath diffuse abdominal pain associated with nausea, vomiting and not feeling well since November of last year. He's had a weight loss of approximately 20 pounds. At the time of admission to the hospital he was noted to have leukocytosis and increased serum transaminases as well as bilirubin up to 3.8 area computed tomography scan and ultrasound showed no evidence of gallstones or biliary ductal dilation. He has a long-standing history of ischemic cardiomy opathy with an ejection fraction of 30% and status post AICD implantation. He was also noted to have lactic acidosis at presentation. The clinical picture is more consistent with a global hypoperfusion causing ischemic hepatitis impossibility of small bowel ischemia cannot be excluded. Likely dealing with a component of alcoholic hepatitis superimposed by ischemic hepatitis caused by hypoperfusion on admission. Possible cirrhosis of the liver based on imaging studies, the CAT scan showed no dular appearing liver which appears to be decompensated with the current clinical situation, patient also has history of alcohol abuse. Daily LFTs, LFTs continue to trend down. Patient also states he has been a daily drinker of 2-3 beers a day for several years, Liver ultrasound ordered which showed correlate for hepatocellular disease, cirrhosis. Pleural effusion, ascites is minimal. Thickened gallbladder wall is again noted without stones within the gallbladder, nonspecific. Current Visit: Yes Status: Acute Priority: High Code(s): R74.01 - ELEVATION OF LEVELS OF LIVER TRANSAMINASE LEVELS SNOMED Code(s): 303842110 (2) Abdominal pain Current Visit: Yes Status: Acute Code(s): R10.9 - UNSPECIFIED ABDOMINAL PAIN SNOMED Code(s): 88120988 (3) Ascites Narrative/Plan: Small amount of ascites noted on CT of the abdomen Current Visit: Yes Status: Acute Code(s): R18.8 - OTHER ASCITES SNOMED Code(s): 240187575 Plan: 1. Continue supportive and symptomatic care 2. Medical management per primary team 3. Diet as tolerated 4. Liver serology has been ordered and negative the patient likely has a degree of underlying liver fibrosis, possibly cirrhosis based on imaging and labs with liver enzymes likely worsened in the setting of hypo-profusion, currently improving 5. Avoid hepatotoxic medications 6. Daily CBC, CMP 7. MiraLAX nightly, may increase to twice a day for constipation We will continue to follow Dr. Curry I agree with the dictator's note, documented as a scribe by Yvrose Duke.
--- NOTE | 2020-04-05 13:31 | P.PN ---
Subjective Progress Note Date: 04/05/20 Principal diagnosis: pulmonary edema, transaminitis, coagulopathy In follow-up today patient resting, he has been marker for thoracentesis. His breathing is stable, but not improving much anymore. No other c/o on a 10 point ROS Objective - Vital Signs Vital signs: Vital Signs Temp 98.3 F 04/05/20 12:00 Pulse 76 04/05/20 12:00 Resp 16 04/05/20 12:00 BP 84/58 04/05/20 12:00 Pulse Ox 95 04/05/20 12:00 Intake & Output 04/04/20 04/05/20 04/05/20 18:59 06:59 18:59 Intake Total 960 480 315 Output Total 700 1200 Balance 260 -720 315 Weight 77 kg 70 kg Intake: IV 75 0.9 NaCl- 75 Oral 960 480 240 Output: Urine 700 1200 Other: Voiding Method Urinal Urinal Urinal # Voids 1 - Constitutional General appearance: Present: average body habitus, cooperative, no acute distress - EENT Eyes: Present: anicteric sclerae, EOMI ENT: Present: hearing grossly normal - Respiratory Respiratory: bilateral: CTA, dullness (bases) - Cardiovascular Heart sounds: normal: S1, S2 - Peripheral edema leg Peripheral Edema: bilateral: None - Gastrointestinal General gastrointestinal: Present: normal bowel sounds, soft - Neurologic Neurologic: Present: CNII-XII intact - Musculoskeletal Musculoskeletal: Present: generalized weakness - Psychiatric Psychiatric: Present: A&O x's 3, appropriate affect, intact judgment & insight - Labs CBC & Chem 7: 04/02/20 07:02 04/05/20 06:46 Labs: Abnormal Lab Results - Last 24 Hours (Table) 04/04/20 04/05/20 04/05/20 Range/Units 09:28 06:46 06:46 PT 12.2 H 12.5 H (9.0-12.0) sec INR 1.2 H 1.2 H (<1.2) Sodium 130 L (137-145) mmol/L Chloride 88 L (98-107) mmol/L Carbon Dioxide 33 H (22-30) mmol/L BUN 25 H (9-20) mg/dL Creatinine 1.43 H (0.66-1.25) mg/dL Glucose 128 H (74-99) mg/dL Total Bilirubin (0.2-1.3) mg/dL AST (17-59) U/L ALT (4-49) U/L Alkaline Phosphatase (38-126) U/L 04/05/20 Range/Units 06:46 PT (9.0-12.0) sec INR (<1.2) Sodium (137-145) mmol/L Chloride (98-107) mmol/L Carbon Dioxide (22-30) mmol/L BUN (9-20) mg/dL Creatinine (0.66-1.25) mg/dL Glucose (74-99) mg/dL Total Bilirubin 3.5 H (0.2-1.3) mg/dL AST 66 H (17-59) U/L ALT 179 H (4-49) U/L Alkaline Phosphatase 216 H (38-126) U/L - Imaging and Cardiology Chest US report reviewed Assessment and Plan (1) Coagulopathy Narrative/Plan: 2/2 acute liver dysfunction and being on anticoagulation. Suspect shock to the organs when pt had severe hypotension. Pt has moderate to severe cardiovascular disease. No autoanticoagulation, INR stable last 2 days at 1.2 Hgb monitoring Current Visit: Yes Status: Acute Priority: High Code(s): D68.9 - COAGULATION DEFECT, UNSPECIFIED SNOMED Code(s): 92568793 (2) Transaminitis Narrative/Plan: LFTs continuing to improve, bilirubin showing some slight improvement. He is being followed by Gastroenterology. Current Visit: Yes Status: Acute Priority: High Code(s): R74.01 - ELEVATION OF LEVELS OF LIVER TRANSAMINASE LEVELS SNOMED Code(s): 213347226 Plan: Discussed case with Attending. The goal is to get patient back on anticoag ulation. Based on pt history, presentation and current medical condition eliquis is the best choice. Discussed with Moderate Needs Teacher. Rx sent. Will work on copay.
--- NOTE | 2020-04-05 13:56 | P.PN ---
Subjective Progress Note Date: 04/05/20 HISTORY OF PRESENT ILLNESS: Patient examined this morning at the bedside. He denies chest pain or pressure. He states he has minimal shortness of breath. Creatinine worse today at 1.4. Nephrology is following. INR today 1.2. Patients anticoagulation remains on hold. Hematology is recommending Eliquis instead of Xarelto. Ultrasound of the chest is ordered per pulmonary for po ssible thoracentesis. PHYSICAL EXAM: VITAL SIGNS: Reviewed. GENERAL: Well-developed in no acute distress. NECK: Supple. No JVD or thyromegaly LUNGS: Respirations even and unlabored. Lungs diminished bilaterally. HEART: Irregular rate and rhythm. S1 and S2 heard. Systolic murmur noted EXTREMITIES: Normal range of motion. No clubbing or cyanosis. Peripheral pulses intact. 1+ bilateral lower extremity edema ASSESSMENT: 1. Shock of unclear etiology. Predominantly appears septic shock with increased white blood cell count and lactic acidosis however he does have significant cardiomyopathy and at least moderate to severe MR and may be a component of cardiogenic shock. Dobutamine has been weaned. 2. Acute liver injury, likely shock liver with coagulopathy. Improving. Possible additional component of amiodarone liver injury. Amiodarone d iscontinued 3. Ischemic cardiomyopathy with EF 25-30% 4. CAD with known history of CARTON LINER of RCA with [id number] collaterals, most recent heart catheterization 02/2020 5. At least moderate to severe posteriorly directed mitral regurgitation with posterior leaflet tethering. Echo this admission showed moderate mitral regurgitation. 6. Moderate to severe tricuspid regurgitation 7. History of hypertension 8. Coagulopathy, improving 9. Acute kidney injury likely related to contrast-induced nephropathy from CTA as well as ATN from hypotension 10. Anemia 11. Elevated troponin, likely type II mechanism from shock 12. Paroyxsmal A. fib 13. AICD present 14. History of ventricular tachycardia status post ablation and AICD, previously on amiodarone 15. Persistent nausea, vomiting, abdominal pain since November. May be a component of mesenteric ischemia. PLAN: Continue telemetry monitoring IV Lasix discontinued per nephrology. Patient started on Demadex. Monitor kidney function. Ultrasound of the chest ordered for possible thoracentesis per pulmonary Will start Eliquis 5 mg PO BID (Hold for possible thoracentesis. May give after procedure) Further recommendations pending patient's course Nurse practitioner note has been reviewed by physician. Signing provider agrees with the documented findings, assessment, and plan of care. Objective - Vital Signs Vital signs: Vital Signs Temp 98.3 F 04/05/20 12:00 Pulse 76 04/05/20 12:00 Resp 16 04/05/20 12:00 BP 84/58 04/05/20 12:00 Pulse Ox 95 04/05/20 12:00 Intake & Output 04/04/20 04/05/20 04/05/20 18:59 06:59 18:59 Intake Total 960 480 315 Output Total 700 1200 125 Balance 260 -720 190 Weight 77 kg 70 kg Intake: IV 75 0.9 NaCl- 75 Oral 960 480 240 Output: Urine 700 1200 125 Other: Voiding Method Urinal Urinal Urinal # Voids 1 - Labs CBC & Chem 7: 04/02/20 07:02 04/05/20 06:46 Labs: Abnormal Lab Results - Last 24 Hours (Table) 04/04/20 04/05/20 04/05/20 Range/Units 09:28 06:46 06:46 PT 12.2 H 12.5 H (9.0-12.0) sec INR 1.2 H 1.2 H (<1.2) Sodium 130 L (137-145) mmol/L Chloride 88 L (98-107) mmol/L Carbon Dioxide 33 H (22-30) mmol/L BUN 25 H (9-20) mg/dL Creatinine 1.43 H (0.66-1.25) mg/dL Glucose 128 H (74-99) mg/dL Total Bilirubin (0.2-1.3) mg/dL AST (17-59) U/L ALT (4-49) U/L Alkaline Phosphatase (38-126) U/L 04/05/20 Range/Units 06:46 PT (9.0-12.0) sec INR (<1.2) Sodium (137-145) mmol/L Chloride (98-107) mmol/L Carbon Dioxide (22-30) mmol/L BUN (9-20) mg/dL Creatinine (0.66-1.25) mg/dL Glucose (74-99) mg/dL Total Bilirubin 3.5 H (0.2-1.3) mg/dL AST 66 H (17-59) U/L ALT 179 H (4-49) U/L Alkaline Phosphatase 216 H (38-126) U/L
--- NOTE | 2020-04-05 15:20 | P.PCN ---
Date of Procedure: 04/05/20 Preoperative Diagnosis: Bilateral pleural effusion Postoperative Diagnosis: Bilateral pleural effusion Procedure(s) Performed: Right sided thoracentesis Anesthesia: local Surgeon: Angie Batista Estimated Blood Loss (ml): 0 Pathology: none sent Condition: stable Disposition: floor Operative Findings: A time out was performed and the chest x-ray was reviewed, the appropriate side was confirmed and marked. My hands were washed immediately prior to the procedure. I wore a surgical cap, mask with protective eyewear, sterile gown and sterile gloves throughout the procedure. The patient was prepped and draped in a sterile manner using chlorhexidine scrub after the appropriate level was percussed and confirmed by ultrasound. 1% lidocaine was used to anesthesize the skin, subcutaneous tissue, superior aspect of the rib periosteum and parietal pleura. A finder needle was then introduced over the superior aspect of the rib to locate the pleural fluid; 2colored fluid was aspirated at a depth of approximately 2 cm. A 10-blade scalpel was used to ely the skin at the insertio n site. The [id number] needle was then introduced through the skin incision into the pleural space using negative aspiration pressure and the red colometric indicator to confirm appropriate positioning of the needle. The thoracentesis catheter was then threaded without difficulty. 1900 ml of turbid colored fluid was removed without difficulty. The catheter was then removed. No immediate complications were noted during the procedure. A post-procedure chest x-ray is pending at the time of this note. The fluid will be sent for studies. Estimated blood loss is 0cc
--- NOTE | 2020-04-05 15:45 | XR ---
EXAMINATION TYPE: XR chest 1V DATE OF EXAM: 04/05/2020 COMPARISON: Prior chest x-ray 04/04/2020 HISTORY: Status post right thoracentesis TECHNIQUE: Single frontal view of the chest is obtained. FINDINGS: There is some improvement in aeration at the right lung base. No other significant interva l change. No pneumothorax. IMPRESSION: No evident complication status post right thoracentesis.
[2020-04-05 15:59] LABS: Color,BF Yellow
[2020-04-05 16:00] LABS: Appearance,BF Clear; Nucleated Cells, Body Fluid 114 /uL; RBC, Body Fluid 69 /uL
[2020-04-05] MEDS ORDERED: FUROSEMIDE 40 MG TAB PO SCH (16:00)
[2020-04-05 16:23] LABS: Mononuclear WBC,Body Fluid 74 %; Polynuclear WBC,Body Fluid 26 %; Total Cells Counted,Body Fluid 100
[2020-04-05] MEDS: APIXABAN 5 MG TAB PO SCH ×2 (18:26→21:24)
[2020-04-06 03:13] LABS: LDH, Body Fluid Source Pleural Fluid
[2020-04-06] MEDS: MIDODRINE 5 MG TAB PO SCH ×3 (06:50→18:35)
[2020-04-06] MEDS: IPRATROPIUM-ALBUTEROL 3 ML NEB INHALATION SCH ×4 (08:29→19:26)
[2020-04-06 08:50] LABS: Albumin 2.9 g/dL (3.5-5.0); Calcium 8.5 mg/dL (8.4-10.2); Magnesium 1.7 mg/dL (1.6-2.3); Potassium 3.7 mmol/L (3.5-5.1); Total Bilirubin 3.7 mg/dL (0.2-1.3); Total Protein 6.3 g/dL (6.3-8.2)
[2020-04-06] MEDS: APIXABAN 5 MG TAB PO SCH ×3 (08:54→20:09)
[2020-04-06] MEDS: METOPROLOL SUCCINATE (ER) 25 MG TAB.ER.24H PO SCH (09:09)
[2020-04-06] MEDS: PANTOPRAZOLE 40 MG TABLET PO SCH ×2 (09:10→20:09)
[2020-04-06] MEDS: TORSEMIDE 20 MG TAB PO SCH (09:12)
[2020-04-06] MEDS: SPIRONOLACTONE 25 MG TAB PO SCH (09:12)
[2020-04-06] MEDS: polyethylene glycoL 3350 17 GM POWD.PACK PO SCH ×2 (09:17→20:09)
[2020-04-06 09:29] LABS: Anisocytosis Slight; Basophils # (A) 0.1 k/uL (0-0.2); Basophils % (A) 1 %; Eosinophils # (A) 0.1 k/uL (0-0.7); Eosinophils % (A) 1 %; HCT 39.6 % (39.0-53.0); HGB 12.8 gm/dL (13.0-17.5); Hypochromasia Moderate; Lymphocytes # (A) 2.1 k/uL (1.0-4.8); Lymphocytes % (A) 18 %; MCHC 32.3 g/dL (31.0-37.0); MCV 83.6 fL (80.0-100.0); Mean Platelet Volume 9.5; Monocytes # (A) 0.8 k/uL (0-1.0); Monocytes % (A) 7 %; Neutrophils # (A) 8.6 k/uL (1.3-7.7); Neutrophils % (A) 72 %; Platelet Count 226 k/uL (150-450); Poikilocytosis Slight; RBC 4.74 m/uL (4.30-5.90); RDW 19.4 % (11.5-15.5)
--- NOTE | 2020-04-06 09:32 | P.PN ---
Subjective 70-year-old male admitted with a diagnosis of acute on chronic systolic heart failure, with ischemic cardiomyopathy, an ejection fraction of 30-35% and severe MR and TR. The patient was also discovered to have severe mitral regurgitation, atrial fibrillation, congestive hepatopathy, possible abdominal sepsis, lactic acidemia, and possible mesenteric ischemia. The patient did have a mesenteric angiogram, which was normal. Clinically, he is doing better. Chest x-ray from April 02 shows persistent congestive heart failure. On 04/04/2020, the patient is being seen for a FU. The patient overall is improved and much better. The patient is on a combination of Lasix with IV lasix 40 mg q 12, Zaroxolyn and aldactone and the patient is well diuresing a combination of diuretics. He is currently on oxygen 1.5 L per minute nasal cannula. The neck fluid balance is negative over the past 48 hours. The labs revealed a BUN of 18 with a creatinine of 1.08. Sodium is at 132. Potassium level is at 3.2 which is being replaced. The last chest x-ray from 04/01/2020 showed CHF and bilateral pleural effusions. The patient also has a left-sided AICD which is in place. He is able to swallow and the patient had a barium swallow evaluation done today to evaluate his swallowing process. He continues to have edema in lower extremities bilaterally. There is bilirubin level is at 4.4 which is slightly lower from yesterday and his liver function tests are also improving and there is a steady drop in his AST which is down to 104 and ALT is down to 266. His INR is at 1.5 with a PT of 14.8. On 04/05/2020, the patient continues to be on IV Lasix 40 mg every 12 hours, Zaroxolyn and Aldactone. He is fluid balance is negative for 60 mL over the past 24 hours. He is currently on oxygen at 1.5 L which is the same as yesterday. His creatinine is up to 1.4, and the patient seems to be prerenal and he has developed an acute kidney injury due to aggressive diuresis. His sodium level is at 140. BUN is at 25. The chest x-ray from yesterday showed bilateral pleural effusions. The patient also has AICD over the left anterior chest area. He also underwent a swallow evaluation yesterday and the patient's was found to have no penetration and no aspiration. No cardiac arrhythmias for now. A this patient oral 40 mg twice a day. On 04/06/2020, the patient is feeling well. The patient on oral Lasix and Zaroxolyn and Aldactone. Creatinine is up to 1.6. A total of 1.5 L of fluid was aspirated from the right lung yesterday and the subsequent chest x-ray showed mild motion of the pleural fluid. The patient is feeling better. He is less short of breath. He remains a 1.5 fraction by nasal cannula. No nausea. No vomiting. No diarrhea. No abdominal pain. No other complaints otherwise for now. I asked him to take off his oxygen to assess his oxygenation and his pulse ox on room air oxygen.. The pleural fluid was a transudate. Objective - Vital Signs Vital signs: Vital Signs Temp 97.7 F 04/06/20 08:00 Pulse 82 04/06/20 08:40 Resp 18 04/06/20 08:00 BP 97/61 04/06/20 08:00 Pulse Ox 98 04/06/20 08:00 Intake & Output 04/05/20 04/06/20 04/06/20 18:59 06:59 18:59 Intake Total 565 120 240 Output Total 1125 1750 Balance -560 -1630 240 Intake: IV 75 0.9 NaCl- 75 Oral 490 120 240 Output: Urine 1125 1750 Other: Voiding Method Urinal Urinal Urinal - Exam No acute distress, oriented 3. No conversational dyspnea for use of accessory muscles. HEENT examination is grossly unremarkable. Mucous membranes are moist. No oral lesions. Neck supple. Full range of motion. No adenopathy thyromegaly or neck vein distention. Cardiovascular examination reveals irregular rhythm and rate. S1-S2 normal. No S3 or S4. A soft systolic murmur is noted. Heart rate is 92 bpm. Lungs are showing some wheezing and occasional crackles and diminished breath sounds in the right lung base. Her sounds are equal bilaterally. No adventitious lung sounds including wheezes rhonchi or crackles. Abdomen soft bowel sounds are heard. No masses or tenderness. Extremities are intact. No cyanosis clubbing or edema. Skin is without rash or lesion. Neurologic examination is brief but nonfocal. - Labs CBC & Chem 7: 04/02/20 07:02 04/06/20 07:54 Labs: Abnormal Lab Results - Last 24 Hours (Table) 04/06/20 Range/Units 07:54 Sodium 129 L (137-145) mmol/L Chloride 84 L (98-107) mmol/L Carbon Dioxide 39 H (22-30) mmol/L BUN 31 H (9-20) mg/dL Creatinine 1.66 H (0.66-1.25) mg/dL Glucose 131 H (74-99) mg/dL Total Bilirubin 3.7 H (0.2-1.3) mg/dL ALT 131 H (4-49) U/L Alkaline Phosphatase 213 H (38-126) U/L Albumin 2.9 L (3.5-5.0) g/dL Assessment and Plan Plan: 1. Acute on chronic systolic heart failure, and the patient with ischemic cardiomyopathy and left ventricular dysfunction and ejection fraction of 30-35%. The patient is improving in terms of his fluid balance. There is still edema in lower extremities bilaterally. There is also a small to moderate-sized rig ht-sided pleural effusion. He is on a combination of diuretics for now. She has become prerenal. The patient has been switched to oral Lasix. On examination he does have still persistent bilateral pleural effusions. The patient underwent a right-sided thoracentesis yesterday and 1.5 L of transudate fluid was aspirated from the right lung consistent with CHF. He does have some residual pleural effusion on the follow-up chest x-ray from today. In the room air oxygen at rest, his pulse is at 95%. He is currently on Demadex 40 mg by mouth daily, Aldactone 25 mg by mouth daily and he is also on Eliquis 5 mg by mouth BID 2. Cardiogenic shock, resolved. 3. Chronic atrial fibrillation anticoagulated with Eliquis. 4. Congestive hepatopathy.The LFTs are improving. The patient's bilirubin also improving. Clinically is jaundiced. The bilirubin level is improving is down to 3.7 5. Jaundice secondary to above and his bilirubin level is also improving. 6. Lactic acidosis related to hypoperfusion related to acute exacerbation of systolic CHF. 7. Rule out mesenteric ischemia and mesenteric angiogram was normal. 8. Cardiorenal syndrome. and is up to 1.6, essentially due to cardiorenal syndrome and diuretics. The patient is currently on a combination of Demadex and Aldactone 9. Coumadin induced coagulopathy. Currently is off anticoagulation. She tells that he was taken Xarelto on outpatient basis. 10. History of coronary artery disease with previous stenting. 11. Hyperlipidemia. 12. History of hypertension. 13. Prior history of myocardial infarction. 14. Status post pacemaker insertion. 15. Severe mitral regurgitation. Plan: no need for further thoracentesis. The chest x-ray was reviewed. Amount of pleural fluid are small at this point in time. These are transudates and there are related to CHF. Continue diuretics for now with close monitoring of the renal function. The patient is currently on a combination of Demadex and Aldactone Monitor renal function Renal function is up compared to yesterday Bilirubin is improving Clinically he is doing much better. His respiratory status is much improved. Assessment RA oxygen with activity and at rest. His overall prognosis though, is guarded.
[2020-04-06 10:08] LABS: RBC Fragments Present
--- NOTE | 2020-04-06 10:12 | XR ---
EXAMINATION TYPE: XR chest 1V DATE OF EXAM: 04/06/2020 COMPARISON: Chest x-ray 04/05/2020 HISTORY: Congestive heart failure TECHNIQUE: Single frontal view of the chest is obtained. FINDINGS: Bibasilar increased attenuation is present, there is blunting the costophrenic angles, obs cured hemidiaphragms. Generators present in the left pectoral region, left lower chest laterally and there are leads as on prior exam within the right ventricle and overlying the heart. Biapical pleural thickening is stable. Heart size is unchanged accounting for differences in technique. No evident pn eumothorax. IMPRESSION: Correlate for congestive heart failure, atelectasis, pneumonia, edema, is likely associa jennifer effusions
[2020-04-06] MEDS ORDERED: LACTULOSE 20 GM/30 ML CUP PO ONE (10:33)
--- NOTE | 2020-04-06 10:52 | P.PN ---
Subjective Patient is seen in follow-up for acute kidney injury. Renal function worse from diuresis. Good urine output. Maintained on oral torsemide. Currently on room air. Vital signs are stable. General: The patient appeared well nourished and normally developed. HEENT: Head exam is unremarkable. Neck is without jugular venous distension. LUNGS: Breath sounds decreased. HEART: Rate and Rhythm are regular. ABDOMEN: Soft, nontender. EXTREMITITES: Trace edema. Objective - Vital Signs Vital signs: Vital Signs Temp 97.7 F 04/06/20 08:00 Pulse 82 04/06/20 08:40 Resp 18 04/06/20 08:00 BP 97/61 04/06/20 08:00 Pulse Ox 94 L 04/06/20 10:03 Intake & Output 04/05/20 04/06/20 04/06/20 18:59 06:59 18:59 Intake Total 565 120 310 Output Total 1125 1750 150 Balance -560 -1630 160 Intake: IV 75 0.9 NaCl- 75 Oral 490 120 310 Output: Urine 1125 1750 150 Other: Voiding Method Urinal Urinal Urinal - Labs CBC & Chem 7: 04/06/20 07:54 04/06/20 07:54 Labs: Abnormal Lab Results - Last 24 Hours (Table) 04/06/20 04/06/20 Range/Units 07:54 07:54 WBC 12.0 H (3.8-10.6) k/uL Hgb 12.8 L (13.0-17.5) gm/dL RDW 19.4 H (11.5-15.5) % Neutrophils # 8.6 H (1.3-7.7) k/uL Sodium 129 L (137-145) mmol/L Chloride 84 L (98-107) mmol/L Carbon Dioxide 39 H (22-30) mmol/L BUN 31 H (9-20) mg/dL Creatinine 1.66 H (0.66-1.25) mg/dL Glucose 131 H (74-99) mg/dL Total Bilirubin 3.7 H (0.2-1.3) mg/dL ALT 131 H (4-49) U/L Alkaline Phosphatase 213 H (38-126) U/L Albumin 2.9 L (3.5-5.0) g/dL Assessment and Plan Plan: Assessment: 1. Acute kidney injury secondary to ATN secondary to cardiorenal syndrome as well as contrast-induced acute kidney injury. Renal function worse from diuresis - cr 1.66 today. 2. Acute on chronic systolic CHF with ejection fraction of 25-30% with moderate to severe tricuspid regurgitation. 3. Volume overload. Improved with diuresis and thoracentesis. 1.9 L drained from the right lung on April 05. 4. 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 5. Hypervolemic hyponatremia. 6. Hypokalemia secondary to diuresis. Magnesium normal. Stable. Plan: Maintain torsemide. Encourage oral intake, particularly protein. 1200 mL fluid restriction. Avoid nephrotoxins. Check serum and urine osmolality and urine sodium level. Repeat electrolytes in the morning.
--- NOTE | 2020-04-06 12:58 | P.PN ---
Subjective Progress Note Date: 04/06/20 HISTORY OF PRESENT ILLNESS: Patient examined this morning at the bedside. He denies chest pain or pressure. He denies shortness of breath. He underwent right thoracentesis yesterday with removal of 1900 mL. Patient states he is supposed to have left thoracentesis today. He remains in atrial fibrillation with controlled ventricular rate. Eliquis remains on hold. Creatinine increased today to 1.66. PHYSICAL EXAM: VITAL SIGNS: Reviewed. GENERAL: Well-developed in no acute distress. NECK: Supple. No JVD or thyromegaly LUNGS: Respirations even and unlabored. Lungs diminished bilaterally. HEART: Irregular rate and rhythm. S1 and S2 heard. Systolic murmur noted EXTREMITIES: Normal range of motion. No clubbing or cyanosis. Peripheral pulses intact. 1+ bilateral lower extremity edema ASSESSMENT: 1. Shock of unclear etiology. Predominantly appears septic shock with increased white blood cell count and lactic acidosis however he does have significant cardiomyopathy and at least moderate to severe MR and may be a component of cardiogenic shock. Dobutamine has been weaned. 2. Acute liver injury, likely shock liver with coagulopathy. Improving. Possible additional component of amiodarone liver injury. Amiodarone di scontinued 3. Ischemic cardiomyopathy with EF 25-30% 4. 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 At least moderate to severe posteriorly directed mitral regurgitation with posterior leaflet tethering. Echo this admission showed moderate mitral regurgitation. 6. Moderate to severe tricuspid regurgitation 7. History of hypertension 8. Coagulopathy, improving 9. Acute kidney injury likely related to contrast-induced nephropathy from CTA as well as ATN from hypotension 10. Anemia 11. Elevated troponin, likely type II mechanism from shock 12. Paroyxsmal A. fib 13. AICD present 14. History of ventricular tachycardia status post ablation and AICD, previously on amiodarone 15. Persistent nausea, vomiting, abdominal pain since November. May be a component of mesenteric ischemia. PLAN: Continue telemetry monitoring Continue Demadex per nephrology. Monitor kidney function. Begin Eliquis today if no plans for left-sided thoracentesis Further recommendations pending patient's course Nurse practitioner note has been reviewed by physician. Signing provider agrees with the documented findings, assessment, and plan of care. Objective - Vital Signs Vital signs: Vital Signs Temp 97.4 F L 04/06/20 12:00 Pulse 80 04/06/20 12:37 Resp 16 04/06/20 12:00 BP 127/68 04/06/20 12:00 Pulse Ox 93 L 04/06/20 12:00 Intake & Output 04/05/20 04/06/20 04/06/20 18:59 06:59 18:59 Intake Total 565 120 310 Output Total 1125 1750 300 Balance -560 -1630 10 Intake: IV 75 0.9 NaCl- 75 Oral 490 120 310 Output: Urine 1125 1750 300 Other: Voiding Method Urinal Urinal Urinal - Labs CBC & Chem 7: 04/06/20 07:54 04/06/20 07:54 Labs: Abnormal Lab Results - Last 24 Hours (Table) 04/06/20 04/06/20 04/06/20 Range/Units 07:54 07:54 07:54 WBC 12.0 H (3.8-10.6) k/uL Hgb 12.8 L (13.0-17.5) gm/dL RDW 19.4 H (11.5-15.5) % Neutrophils # 8.6 H (1.3-7.7) k/uL Sodium 129 L (137-145) mmol/L Chloride 84 L (98-107) mmol/L Carbon Dioxide 39 H (22-30) mmol/L BUN 31 H (9-20) mg/dL Creatinine 1.66 H (0.66-1.25) mg/dL Glucose 131 H (74-99) mg/dL Osmolality 279 L (280-301) mosm/kg Total Bilirubin 3.7 H (0.2-1.3) mg/dL ALT 131 H (4-49) U/L Alkaline Phosphatase 213 H (38-126) U/L Albumin 2.9 L (3.5-5.0) g/dL
--- NOTE | 2020-04-06 14:05 | P.PN ---
Subjective Progress Note Date: 04/06/20 Principal diagnosis: Elevated LFTs and jaundice, abdominal pain This is a 70-year-old white male who is admitted with a diagnosis of acute on chronic systolic heart failure, with ischemic cardiomyopathy with an ejection fraction of 30-35% and severe MR and TR with elevation of liver function tests. Patient has a history of heavy alcohol use in the past. He is denied any know ledge of any liver disease. He is seen and examined sitting up in bed. He states he is feeling much better today. He denies any abdominal pain, nausea, or vomiting. His liver enzymes continued to trend down. He states he still has not had a bowel movement, he was started on MiraLAX twice a day. He states he is having positive flatus. Objective - Vital Signs Vital signs: Vital Signs Temp 97.7 F 04/06/20 08:00 Pulse 82 04/06/20 08:40 Resp 18 04/06/20 08:00 BP 97/61 04/06/20 08:00 Pulse Ox 94 L 04/06/20 10:03 Intake & Output 04/05/20 04/06/20 04/06/20 18:59 06:59 18:59 Intake Total 565 120 310 Output Total 1125 1750 150 Balance -560 -1630 160 Intake: IV 75 0.9 NaCl- 75 Oral 490 120 310 Output: Urine 1125 1750 150 Other: Voiding Method Urinal Urinal Urinal - Exam General appearance: The patient is alert, oriented, in no acute distress. HET: Head is normocephalic and atraumatic. Conjunctiva pink. Sclera anicteric. Neck: Supple without lymphadenopathy. Abdomen: Soft, nontender, nondistended with normal bowel sounds. No guarding or rigidity. Extremities: Mildly jaundiced. No pedal edema Neurological: No focal deficits. Alert and oriented 3. - Labs CBC & Chem 7: 04/06/20 07:54 04/06/20 07:54 Labs: Abnormal Lab Results - Last 24 Hours (Table) 04/06/20 04/06/20 Range/Units 07:54 07:54 WBC 12.0 H (3.8-10.6) k/uL Hgb 12.8 L (13.0-17.5) gm/dL RDW 19.4 H (11.5-15.5) % Neutrophils # 8.6 H (1.3-7.7) k/uL Sodium 129 L (137-145) mmol/L Chloride 84 L (98-107) mmol/L Carbon Dioxide 39 H (22-30) mmol/L BUN 31 H (9-20) mg/dL Creatinine 1.66 H (0.66-1.25) mg/dL Glucose 131 H (74-99) mg/dL Total Bilirubin 3.7 H (0.2-1.3) mg/dL ALT 131 H (4-49) U/L Alkaline Phosphatase 213 H (38-126) U/L Albumin 2.9 L (3.5-5.0) g/dL Assessment and Plan (1) Transaminitis Narrative/Plan: This is s a patient who presented to the hospital with worsening shortness of breath diffuse abdominal pain associated with nausea, vomiting and not feeling well since November of last year. He's had a weight loss of approximately 20 pounds. At the time of admission to the hospital he was noted to have leukocytosis and increased serum transaminases as well as bilirubin up to 3.8 area computed tomography scan and ultrasound showed no evidence of gallstones or biliary ductal dilation. He has a long-standing history of ischemic cardiomyopathy with an ejection fraction of 30% and status post AICD implantation. He was also noted to have lactic acidosis at presentation. The clinical picture is more consistent with a global hypoperfusion causing ischemic hepatitis impossibility of small bowel ischemia cannot be excluded. Likely dealing with a component of alcoholic hepatitis superimposed by ischemic hepatitis caused by hypoperfusion on admission. Possible cirrhosis of the liver based on imaging studies, the CAT scan showed nodular appearing liver which appears to be decompensated with the current clinical situation, patient also has history of alcohol abuse. Daily LFTs, LFTs continue to trend down. Patient also states he has been a daily drinker of 2-3 beers a day for several years, Liver ultrasound ordered which showed correlate for hepatocellular disease, cirrhosis. Pleural effusion, ascites is minimal. Thickened gallbladder wall is again noted without stones within the gallbladder, nonspecific. Current Visit: Yes Status: Acute Priority: High Code(s): R74.01 - ELEVATION OF LEVELS OF LIVER TRANSAMINASE LEVELS SNOMED Code(s): 245923735 (2) Abdominal pain Current Visit: Yes Status: Acute Code(s): R10.9 - UNSPECIFIED ABDOMINAL PAIN SNOMED Code(s): 48706609 (3) Ascites Narrative/Plan: Small amount of ascites noted on CT of the abdomen Current Visit: Yes Status: Acute Code(s): R18.8 - OTHER ASCITES SNOMED Code(s): 106836364 Plan: 1. Continue supportive and symptomatic care 2. Medical management per primary team 3. Diet as tolerated 4. Liver serology has been ordered and negative the patient likely has a degree of underlying liver fibrosis, possibly cirrhosis based on imaging and labs with liver enzymes likely worsened in the setting of hypo-profusion, currently improving 5. Avoid hepatotoxic medications 6. Daily CBC, CMP 7. MiraLAX nightly, may increase to twice a day for constipation 8. Will add one time dose of lactulose for constipation We will continue to follow Dr. Curry I agree with the dictator's note, documented as a scribe by Yvrose Duke.
--- NOTE | 2020-04-06 15:13 | P.PN ---
Subjective Progress Note Date: 04/06/20 Principal diagnosis: pulmonary edema, transaminitis, coagulopathy In follow-up today patient is smiling, he walked down the [place] with PT, he states feeling really good, breathing is much better, no O2! Objective - Vital Signs Vital signs: Vital Signs Temp 97.4 F L 04/06/20 12:00 Pulse 80 04/06/20 12:37 Resp 16 04/06/20 14:32 BP 127/68 04/06/20 12:00 Pulse Ox 93 L 04/06/20 12:00 Intake & Output 04/05/20 04/06/20 04/06/20 18:59 06:59 18:59 Intake Total 565 120 610 Output Total 1125 1750 300 Balance -560 -1630 310 Intake: IV 75 0.9 NaCl- 75 Oral 490 120 610 Output: Urine 1125 1750 300 Other: Voiding Method Urinal Urinal Urinal - Constitutional General appearance: Present: average body habitus, cooperative, no acute distress - EENT EENT Comment(s): faint jaundice noted-improved Eyes: Present: EOMI ENT: Present: hearing grossly normal - Respiratory Respiratory: bilateral: CTA (few scattered crackles in bases) - Cardiovascular Heart sounds: normal: S1, S2 - Neurologic Neurologic: Present: CNII-XII intact - Musculoskeletal Musculoskeletal: Present: generalized weakness - Psychiatric Psychiatric: Present: A&O x's 3, appropriate affect, intact judgment & insight - Labs CBC & Chem 7: 04/06/20 07:54 04/06/20 07:54 Labs: Abnormal Lab Results - Last 24 Hours (Table) 04/06/20 04/06/20 04/06/20 Range/Units 07:54 07:54 07:54 WBC 12.0 H (3.8-10.6) k/uL Hgb 12.8 L (13.0-17.5) gm/dL RDW 19.4 H (11.5-15.5) % Neutrophils # 8.6 H (1.3-7.7) k/uL Sodium 129 L (137-145) mmol/L Chloride 84 L (98-107) mmol/L Carbon Dioxide 39 H (22-30) mmol/L BUN 31 H (9-20) mg/dL Creatinine 1.66 H (0.66-1.25) mg/dL Glucose 131 H (74-99) mg/dL Osmolality 279 L (280-301) mosm/kg Total Bilirubin 3.7 H (0.2-1.3) mg/dL ALT 131 H (4-49) U/L Alkaline Phosphatase 213 H (38-126) U/L Albumin 2.9 L (3.5-5.0) g/dL Assessment and Plan (1) Coagulopathy Narrative/Plan: 2/2 acute liver dysfunction and being on anticoagulation. Suspect shock to the organs when pt had severe hypotension. Pt has moderate to severe cardiovascular disease. Nearly completely resolved Current Visit: Yes Status: Acute Priority: High Code(s): D68.9 - COAGULATION DEFECT, UNSPECIFIED SNOMED Code(s): 49012105 (2) Transaminitis Current Visit: Yes Status: Resolved Priority: High Code(s): R74.01 - ELEVATION OF LEVELS OF LIVER TRANSAMINASE LEVELS SNOMED Code(s): 235785861 Plan: Eliquis started as it is the best anticoagulation choice for this pt. Pt able to handle copay
--- NOTE | 2020-04-06 17:54 | P.PN ---
Progress Note - Text Progress Note Date: 04/06/20 Chief Complaint: Abdominal pain History of presenting complaint: This is a pleasant 69-year-old patient of Dr. Cheatham. Chronic stable medical conditions include coronary artery disease, hyperlipidemia, multiple MIs in the past, coronary stent, peptic ulcer disease, ischemic cardiomyopathy, previous V. tach ablation, atrial fibrillation,. 2 weeks ago patient was admitted with CHF exacerbation. Cardiac catheterization [March 14] showed chronically occluded RCA with extensive [id number] collaterals. Also some focal obstructive lesion in the circumflex. Creatinine then was 1.16. Patient now presents with having nausea vomiting "a few days. Also having dif fuse abdominal pain. Appetite is rather poor. Has not had a bowel movement for 5 days. Shortness of breath. Denies any fever and chills. Occasional cough. Some edema. Has orthopnea. Admitted with suspected ischemic colitis, causing resultant hypotension, severe lactic acidosis ischemic hepatitis, abnormal regulation profile with a contribution from xarelto, pulmonary edema with acute CHF exacerbation. Patient was given vitamin K put on IV dobutamine, bronchodilators-admitted to ICU. Started on IV Zosyn. Patient denies been into fluid overload. Has been receiving IV diuretics. Moved out of the medical floor. Today-appetite improving. Has started to ambulate. Had thoracentesis done today. 1200 to move from the right site and about 300 from the left side. Review of systems: Was done for constitutional, cardiovascular, GI, pulmonary. relevant finding as above Active Medications Albuterol/Ipratropium (Ipratropium-Albuterol 3 Ml Neb) 3 ml INHALATION RT-QID [facility] Last Admin: 04/06/20 15:50 Dose: 3 ml Documented by: Apixaban (Apixaban 5 Mg Tab) 5 mg PO BID [facility] Last Admin: 04/06/20 10:11 Dose: 5 mg Documented by: Benzocaine/Menthol (Benzocaine/Menthol Lozeng 1 Each Lozenge) 1 each MUCOUS MEM Q4HR PRN PRN Reason: Sore Throat Last Admin: 03/28/20 22:36 Dose: 1 each Documented by: Hydromorphone HCl (Hydromorphone 0.5 Mg/0.5 Ml Syringe) 0.5 mg IVP Q4HR PRN PRN Reason: Pain Last Admin: 03/26/20 14:42 Dose: 0.5 mg Documented by: Metoprolol Succinate (Metoprolol Succinate (Er) 25 Mg Tab.Er.24h) 25 mg PO DAILY [facility] Last Admin: 04/06/20 09:09 Dose: 25 mg Documented by: Midodrine (Midodrine 5 Mg Tab) 10 mg PO AC-TID [facility] Last Admin: 04/06/20 12:57 Dose: 10 mg Documented by: Miscellaneous Information (Magnesium Replacement Protocol 1 Each Misc) 1 each MISCELLANE DAILY PRN; Protocol PRN Reason: Per Protocol Pantoprazole Sodium (Pantoprazole 40 Mg Tablet) 40 mg PO BID [facility] Last Admin: 04/06/20 09:10 Dose: 40 mg Documented by: Polyethylene Glycol (Polyethylene Glycol 3350 17 Gm Powd.Pack) 17 gm PO BID [facility] Last Admin: 04/06/20 09:17 Dose: 17 gm Documented by: Prochlorperazine Edisylate (Prochlorperazine Inj 10 Mg/2 Ml Vial) 10 mg IVP Q6H PRN PRN Reason: Nausea And Vomiting Last Admin: 04/05/20 09:01 Dose: 10 mg Documented by: Spironolactone (Spironolactone 25 Mg Tab) 25 mg PO DAILY [facility] Last Admin: 04/06/20 09:12 Dose: 25 mg Documented by: Torsemide (Torsemide 20 Mg Tab) 40 mg PO DAILY [facility] Last Admin: 04/06/20 09:12 Dose: 40 mg Documented by: Past medical history to include: Coronary artery disease with stent, multiple MIs, hyperlipidemia, peptic ulcer disease, CHF EF 35-40%, ventricular tachycardia ablation, AICD placement, chronic atrial fibrillation, Social history: Lives alone. Smoking a pack a day closed to 59 years, takes about 6 pack a week. 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 Conjunctiva normal. HEENT: External appearance of nose and ears normal, oral cavity grossly normal. NECK: JVD possibly raised; masses not palpable. HEART: Irregular heart sounds; edema present. LUNGS: Respiratory rate increased, decreased breath sounds. ABDOMEN: Soft, no tenderness, no guarding rigidity, liver spleen not palpable, no masses palpable. PSYCH: Alert and oriented x3; mood and affect better INVESTIGATIONS, reviewed in the clinical context: April 06: White count 12 hemoglobin 12.8 platelets 226 sodium 129 potassium 3.7 bicarb 39 bun 31 and creatinine 1.66 AST 56 ALT 131 March 31: White count 12.4 hemoglobin 11 platelets 158 pro-time 17.3 PTT 39.7 potassium 3.6 creatinine 1.37 bilirubin 5.6 AST 459 ALT 582 March 30: White count 11.5 hemoglobin 11.2 ProTime 22.8 PTT 45.0 sodium 133 potassium 3.6 BUN 42 creatinine 2.47 AST 1180 ALT 902 albumin 2.6 March 29: White count 13.2 hemoglobin 11.2 platelets 215 INR 4.0 PTT 49.1 potassium 4.2 bun 56 creatinine 3.38AST 2488 ALT 1242 alpha-1 antitrypsin normal at 181 70+ been normal at 31.1 tumor marker AFP test 2.5 Acute hepatitis panel including hepatitis A IgM antibody, hepatitis B surface antigen, hepatitis B core IgM antibody, hepatitis C IgG antibody all nonreactive. In a screen negative March 28: White count 19.7 hemoglobin 10.7 platelets 254 ProTime 89.3 INR 9.1 PTT 55.2 sodium 131 potassium 5.1 bun 47 creatinine 3.37 calcium 6.3 bilirubin 53.6 AST 07/22/2006 ALT 1695 troponin I 0.086, 0.068 pro-calcitonin 1.96 White count 29.2 hemoglobin 12.2 platelets 327 ProTime greater than 10 Potassium 6 bicarbonate 17 bun 29 creatinine 2.58 total bilirubin 3.8 AST 7392 ALT 1842 Admission testing: White count 25.4 hemoglobin 13.6 platelets 384 Sodium 135 potassium 5.7 creatinine 1.61 lactic 10.4 total bilirubin 3.2 AST 1472 ALT 537 Coronavirus-P/Cr-not detected Computed tomography scan of the abdomen pelvis-moderate size bilateral pleural effusion and compression atelectasis, [facility] [place] of the colon the right colon contracted gallbladder Ultrasound-contracted gallbladder EKG tracing personally reviewed by me-atrial fibrillation rate of 91 Chest x-ray film-pleural effusion atelectasis Previous testing: Hemoglobin 11.6 on March 14 Creatinine 1.16 on March 14 Assessment: -acute ischemic colitis given that the patient has got significant vascular disease, infective component cannot be ruled out-improving -Acute ischemic hepatitis, severe from CHF and hypotension- improving -Abnormal coagulation profile with a combination of patient poor oral intake and also being on an xarelto and also vitamin K received 3 doses of vitamin K. -AICD -Coronary artery disease with prior history of stents -Acute on chronic congestive heart failure exacerbation from systolic dysfunction EF 30-35%-better -Acute hypoxic respiratory failure from pulmonary edema on 2 L of nasal cannula- improving -Moderate tricuspid regurgitation -Hyperlipidemia -Persistent atrial fibrillation/flutter-rate controlled -Chronic nicotine dependence patient active cigarette smoker -Acute kidney injury likely ATN from cardiorenal syndrome, the possible contribution from contrast-induced nephropathy from cardiac catheterization and IV contrast with computed tomography slow improvement -Bilateral pleural effusion from CHF with a prior history of thoracentesis -Metabolic acidosis multifactorial -Metabolic alkalosis from diuresis -Hyperkalemia from renal failure-improved -Troponin leak from acute kidney injury and hemodynamic instability Plan: Patient's currently on eliquis, Toprol-XL, Aldactone, Demadex 40 mg. We'll add Diamox. Patient remains on fluid restriction.
[2020-04-06] MEDS: acetaZOLAMIDE 250 MG TAB PO SCH (20:09)
[2020-04-07] MEDS: MIDODRINE 5 MG TAB PO SCH ×3 (06:32→16:46)
[2020-04-07] MEDS: IPRATROPIUM-ALBUTEROL 3 ML NEB INHALATION SCH ×4 (08:08→20:15)
[2020-04-07 08:25] LABS: Calcium 8.3 mg/dL (8.4-10.2); Magnesium 1.6 mg/dL (1.6-2.3); Potassium 3.7 mmol/L (3.5-5.1)
[2020-04-07] MEDS: METOPROLOL SUCCINATE (ER) 25 MG TAB.ER.24H PO SCH (08:28)
[2020-04-07] MEDS: polyethylene glycoL 3350 17 GM POWD.PACK PO SCH ×2 (08:28→20:34)
[2020-04-07] MEDS: SPIRONOLACTONE 25 MG TAB PO SCH (08:28)
[2020-04-07] MEDS: TORSEMIDE 20 MG TAB PO SCH (08:28)
[2020-04-07] MEDS: acetaZOLAMIDE 250 MG TAB PO SCH ×2 (08:29→20:33)
[2020-04-07] MEDS: APIXABAN 5 MG TAB PO SCH ×2 (08:29→20:33)
[2020-04-07] MEDS: PANTOPRAZOLE 40 MG TABLET PO SCH ×2 (08:29→20:33)
--- NOTE | 2020-04-07 09:04 | P.PN ---
Subjective Patient is seen in follow-up for acute kidney injury. Renal function worse from diuresis. Good urine output. Maintained on oral torsemide. Currently on 1.5 L nasal cannula. Oral intake slowly improving. Vital signs are stable. General: The patient appeared well nourished and normally developed. HEENT: Head exam is unremarkable. Neck is without jugular venous distension. LUNGS: Breath sounds decreased. HEART: Rate and Rhythm are regular. ABDOMEN: Soft, nontender. EXTREMITITES: 1+ edema. Objective - Vital Signs Vital signs: Vital Signs Temp 97.7 F 04/07/20 08:22 Pulse 68 04/07/20 08:22 Resp 18 04/07/20 08:22 BP 101/69 04/07/20 08:22 Pulse Ox 94 L 04/07/20 08:22 Intake & Output 04/06/20 04/07/20 04/07/20 18:59 06:59 18:59 Intake Total 610 790 180 Output Total 1075 1725 Balance -465 -935 180 Weight 64.9 kg Intake: Oral 610 790 180 Output: Urine 1075 1725 Other: Voiding Method Urinal Urinal - Labs CBC & Chem 7: 04/06/20 07:54 04/07/20 06:28 Labs: Abnormal Lab Results - Last 24 Hours (Table) 04/06/20 04/06/20 04/07/20 Range/Units 07:54 07:54 06:28 WBC 12.0 H (3.8-10.6) k/uL Hgb 12.8 L (13.0-17.5) gm/dL RDW 19.4 H (11.5-15.5) % Neutrophils # 8.6 H (1.3-7.7) k/uL Sodium 128 L (137-145) mmol/L Chloride 80 L (98-107) mmol/L Carbon Dioxide 40 H (22-30) mmol/L BUN 31 H (9-20) mg/dL Creatinine 1.84 H (0.66-1.25) mg/dL Glucose 102 H (74-99) mg/dL Osmolality 279 L (280-301) mosm/kg Calcium 8.3 L (8.4-10.2) mg/dL Assessment and Plan Plan: Assessment: 1. Acute kidney injury secondary to ATN secondary to cardiorenal syndrome as well as contrast-induced acute kidney injury. Renal function worse from diuresis - cr 1.84 today. 2. Acute on chronic systolic CHF with ejection fraction of 25-30% with moderate to severe tricuspid regurgitation. 3. Volume overload. Improved with diuresis and thoracentesis. 1.9 L drained from the right lung on April 05. 4. 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 5. Hypervolemic hyponatremia. Urine osmolality 305 and urine random sodium 108. 6. Hypokalemia secondary to diuresis. Magnesium normal. Stable. Plan: Decrease torsemide to 20 minute grams once daily. Samsca 15 mg once today. Encourage oral intake, particularly protein. 1200 mL fluid restriction. Avoid nephrotoxins. Repeat sodium level this evening and again in the morning.
--- NOTE | 2020-04-07 09:38 | P.PN ---
Subjective Progress Note Date: 04/07/20 70-year-old male admitted with a diagnosis of acute on chronic systolic heart failure, with ischemic cardiomyopathy, an ejection fraction of 30-35% and severe MR and TR. The patient was also discovered to have severe mitral regurgitation, atrial fibrillation, congestive hepatopathy, possible abdominal sepsis, lactic acidemia, and possible mesenteric ischemia. The patient did have a mesenteric angiogram, which was normal. Clinically, he is doing better. Chest x-ray from April 02 shows persistent congestive heart failure. On 04/04/2020, the patient is being seen for a FU. The patient overall is improved and much better. The patient is on a combination of Lasix with IV lasix 40 mg q 12, Zaroxolyn and aldactone and the patient is well diuresing a combination of diuretics. He is currently on oxygen 1.5 L per minute nasal cannula. The neck fluid balance is negative over the past 48 hours. The labs revealed a BUN of 18 with a creatinine of 1.08. Sodium is at 132. Potassium level is at 3.2 which is being replaced. The last chest x-ray from 04/01/2020 showed CHF and bilateral pleural effusions. The patient also has a left-sided AICD which is in place. He is able to swallow and the patient had a barium swallow evaluation done today to evaluate his swallowing process. He continues to have edema in lower extremities bilaterally. There is bilirubin level is at 4.4 which is slightly lower from yesterday and his liver function tests are also improving and there is a steady drop in his AST which is down to 104 and ALT is down to 266. His INR is at 1.5 with a PT of 14.8. On 04/05/2020, the patient continues to be on IV Lasix 40 mg every 12 hours, Zaroxolyn and Aldactone. He is fluid balance is negative for 60 mL over the past 24 hours. He is currently on oxygen at 1.5 L which is the same as yesterday. His creatinine is up to 1.4, and the patient seems to be prerenal an d he has developed an acute kidney injury due to aggressive diuresis. His sodium level is at 140. BUN is at 25. The chest x-ray from yesterday showed bilateral pleural effusions. The patient also has AICD over the left anterior chest area. He also underwent a swallow evaluation yesterday and the patient's was found to have no penetration and no aspiration. No cardiac arrhythmias for now. A this patient oral 40 mg twice a day. On 04/06/2020, the patient is feeling well. The patient on oral Lasix and Zaroxolyn and Aldactone. Creatinine is up to 1.6. A total of 1.5 L of fluid was aspirated from the right lung yesterday and the subsequent chest x-ray showed mild motion of the pleural fluid. The patient is feeling better. He is less short of breath. He remains a 1.5 fraction by nasal cannula. No nausea. No vomiting. No diarrhea. No abdominal pain. No other complaints otherwise for now. I asked him to take off his oxygen to assess his oxygenation and his pulse ox on room air oxygen.. The pleural fluid was a transudate. On 04/07/2020, the patient is being seen for a follow-up. Creatinine is at 1.8 today. The patient remains on a combination of Demadex and Aldactone. Doing well. He is on 1.5 L of oxygen. We decided not to do any further thoracentesis as the patient's pleural effusions were quite small and there were essentially transudate consistent with CHF. No cardiac arrhythmias. The rest of the blood work today shows a white cell count of 12 with a hemoglobin of 12.8 and the patient has developed some metabolic alkalosis secondary to aggressive diuresis. BUN is at 31 and creatinine is at 1.8 with a sodium level of 128. He was semsca 15 mg x1 Any is also on midodrine for blood pressure control. Objective - Vital Signs Vital signs: Vital Signs Temp 97.7 F 04/07/20 08:22 Pulse 68 04/07/20 09:00 Resp 18 04/07/20 09:00 BP 101/69 04/07/20 09:00 Pulse Ox 94 L 04/07/20 09:00 Intake & Output 04/06/20 04/07/20 04/07/20 18:59 06:59 18:59 Intake Total 610 790 298 Output Total 1075 1725 Balance -465 -206 298 Weight 64.9 kg Intake: Oral 610 790 298 Output: Urine 1075 1725 Other: Voiding Method Urinal Urinal Urinal - Exam No acute distress, oriented 3. No conversational dyspnea for use of accessory muscles. HEENT examination is grossly unremarkable. Mucous membranes are moist. No oral lesions. Neck supple. Full range of motion. No adenopathy thyromegaly or neck vein distention. Cardiovascular examination reveals irregular rhythm and rate. S1-S2 normal. No S3 or S4. A soft systolic murmur is noted. Heart rate is 92 bpm. Lungs are showing some wheezing and occasional crackles and diminished breath sounds in the right lung base. Her sounds are equal bilaterally. No adventitious lung sounds including wheezes rhonchi or crackles. Abdomen soft bowel sounds are heard. No masses or tenderness. Extremities are intact. No cyanosis clubbing or edema. Skin is without rash or lesion. Neurologic examination is brief but nonfocal. - Labs CBC & Chem 7: 04/06/20 07:54 04/07/20 06:28 Labs: Abnormal Lab Results - Last 24 Hours (Table) 04/06/20 04/06/20 04/07/20 Range/Units 07:54 07:54 06:28 Neutrophils # 8.6 H (1.3-7.7) k/uL Sodium 128 L (137-145) mmol/L Chloride 80 L (98-107) mmol/L Carbon Dioxide 40 H (22-30) mmol/L BUN 31 H (9-20) mg/dL Creatinine 1.84 H (0.66-1.25) mg/dL Glucose 102 H (74-99) mg/dL Osmolality 279 L (280-301) mosm/kg Calcium 8.3 L (8.4-10.2) mg/dL Assessment and Plan Plan: 1. Acute on chronic systolic heart failure, and the patient with ischemic cardiomyopathy and left ventricular dysfunction and ejection fraction of 30-35%. The patient is improving in terms of his fluid balance. There is still edema in lower extremities bilaterally. There is also a small to moderate-sized right-sided pleural effusion. He is on a combination of diuretics for now. She has become prerenal. The patient has been switched to oral Lasix. On exami nation he does have still persistent bilateral pleural effusions. The patient underwent a right-sided thoracentesis yesterday and 1.5 L of transudate fluid was aspirated from the right lung consistent with CHF. He does have some residual pleural effusion on the follow-up chest x-ray from today. In the room air oxygen at rest, his pulse is at 95%. He is currently on Demadex 40 mg by mouth daily, Aldactone 25 mg by mouth daily and he is also on Eliquis 5 mg by mouth BID 2. Cardiogenic shock, resolved. 3. Chronic atrial fibrillation anticoagulated with Eliquis. 4. Congestive hepatopathy.The LFTs are improving. The patient's bilirubin also improving. Clinically is jaundiced. The bilirubin level is improving is down to 3.7 5. Jaundice secondary to above and his bilirubin level is also improving. 6. Lactic acidosis related to hypoperfusion related to acute exacerbation of sy stolic CHF. 7. Rule out mesenteric ischemia and mesenteric angiogram was normal. 8. Cardiorenal syndrome. and is up to 1.8, essentially due to cardiorenal syndrome and diuretics. The patient is currently on a combination of Demadex and Aldactone 9. Coumadin induced coagulopathy. Currently is off anticoagulation. She tells that he was taken Xarelto on outpatient basis. 10. History of coronary artery disease with previous stenting. 11. Hyperlipidemia. 12. History of hypertension. 13. Prior history of myocardial infarction. 14. Status post pacemaker insertion. 15. Severe mitral regurgitation. 16 hyponatremia with a sodium level of 128. The patient was given a dose of Tigre sca milligrams 17 Plan: The sodium level and agree on the management Monitor renal function Renal function is up compared to yesterday and the creatinine is up to 1.8 Bilirubin is improving Clinically he is doing much better. His respiratory status is much improved. Assessment RA oxygen with activity and at rest. His overall prognosis though, is guarded.
[2020-04-07] MEDS ORDERED: TOLVAPTAN 15 MG 1/2 TABLET PO ONE (10:00)
--- NOTE | 2020-04-07 13:03 | P.PN ---
Subjective Progress Note Date: 04/07/20 HISTORY OF PRESENT ILLNESS: Patient examined this morning at the bedside. He denies chest pain or pressure. He remains in atrial fibrillation with controlled ventricular rate. Creatinine increased today to 1.84. Patient remains on Demadex daily. PHYSICAL EXAM: VITAL SIGNS: Reviewed. GENERAL: Well-developed in no acute distress. NECK: Supple. No JVD or thyromegaly LUNGS: Respirations even and unlabored. Lungs diminished bilaterally. HEART: Irregular rate and rhythm. S1 and S2 heard. Systolic murmur noted EXTREMITIES: Normal range of motion. No clubbing or cyanosis. Peripheral pulses intact. 1+ bilateral lower extremity edema ASSESSMENT: 1. Shock of unclear etiology. Predominantly appears septic shock with increased white blood cell count and lactic acidosis however he does have significant cardiomyopathy and at least moderate to severe MR and may be a component of cardiogenic shock. Dobutamine has been weaned. 2. Acute liver injury, likely shock liver with coagulopathy. Improving. Possible additional component of amiodarone liver injury. Amiodarone discontinued 3. Ischemic cardiomyopathy with EF 25-30% 4. CAD with known history of DENTAL RECEPTIONIST of RCA with [id number] collaterals, most recent heart catheterization 02/2020 5. At least moderate to severe posteriorly directed mitral regurgitation with posterior leaflet tethering. Echo this admission showed moderate mitral regurgitation. 6. Moderate to severe tricuspid regurgitation 7. History of hypertension 8. Coagulopathy, improving 9. Acute kidney injury likely related to contrast-induced nephropathy from CTA as well as ATN from hypotension 10. Anemia 11. Elevated troponin, likely type II mechanism from shock 12. Paroyxsmal A. fib 13. AICD present 14. History of ventricular tachycardia status post ablation and AICD, previously on amiodarone 15. Persistent nausea, vomiting, abdominal pain since November. May be a component of mesenteric ischemia. PLAN: Continue telemetry monitoring Continue Demadex per nephrology. Monitor kidney function. Continue Eliquis Further recommendations pending patient's course Nurse practitioner note has been reviewed by physician. Signing provider agrees with the documented findings, assessment, and plan of care. Objective - Vital Signs Vital signs: Vital Signs Temp 97.8 F 04/07/20 11:44 Pulse 81 04/07/20 12:09 Resp 18 04/07/20 11:44 BP 87/51 04/07/20 11:44 Pulse Ox 97 04/07/20 11:44 Intake & Output 04/06/20 04/07/20 04/07/20 18:59 06:59 18:59 Intake Total 610 790 538 Output Total 1075 1725 225 Balance -465 -935 313 Weight 64.9 kg Intake: Oral 610 790 538 Output: Urine 1075 1725 225 Other: Voiding Method Urinal Urinal Urinal - Labs CBC & Chem 7: 04/06/20 07:54 04/07/20 06:28 Labs: Abnormal Lab Results - Last 24 Hours (Table) 04/07/20 Range/Units 06:28 Sodium 128 L (137-145) mmol/L Chloride 80 L (98-107) mmol/L Carbon Dioxide 40 H (22-30) mmol/L BUN 31 H (9-20) mg/dL Creatinine 1.84 H (0.66-1.25) mg/dL Glucose 102 H (74-99) mg/dL Calcium 8.3 L (8.4-10.2) mg/dL
[2020-04-07] MEDS ORDERED: FLUCONAZOLE 100 MG TAB PO ONE (13:30)
--- NOTE | 2020-04-07 17:52 | P.PN ---
Progress Note - Text Progress Note Date: 04/07/20 Chief Complaint: Abdominal pain History of presenting complaint: This is a pleasant 69-year-old patient of Dr. Cheatham. Chronic stable medical conditions include coronary artery disease, hyperlipidemia, multiple MIs in the past, coronary stent, peptic ulcer disease, ischemic cardiomyopathy, previous V. tach ablation, atrial fibrillation,. 2 weeks ago patient was admitted with CHF exacerbation. Cardiac catheterization [March 14] showed chronically occluded RCA with extensive [id number] collaterals. Also some focal obstructive lesion in the circumflex. Creatinine then was 1.16. Patient now presents with having nausea vomiting "a few days. Also having dif fuse abdominal pain. Appetite is rather poor. Has not had a bowel movement for 5 days. Shortness of breath. Denies any fever and chills. Occasional cough. Some edema. Has orthopnea. Admitted with suspected ischemic colitis, causing resultant hypotension, severe lactic acidosis ischemic hepatitis, abnormal regulation profile with a contribution from xarelto, pulmonary edema with acute CHF exacerbation. Patient was given vitamin K put on IV dobutamine, bronchodilators-admitted to ICU. Started on IV Zosyn. Patient denies been into fluid overload. Has been receiving IV diuretics. Moved out of the medical floor. Today-complaining of dry mouth. Some trouble swallowing. Did walk a bit. Review of systems: Was done for constitutional, cardiovascular, GI, pulmonary. relevant finding as above Active Medications Acetazolamide (Acetazolamide 250 Mg Tab) 250 mg PO BID [facility] Last Admin: 04/07/20 08:29 Dose: 250 mg Documented by: Albuterol/Ipratropium (Ipratropium-Albuterol 3 Ml Neb) 3 ml INHALATION RT-QID [facility] Last Admin: 04/07/20 16:14 Dose: 3 ml Documented by: Apixaban (Apixaban 5 Mg Tab) 5 mg PO BID [facility] Last Admin: 04/07/20 08:29 Dose: 5 mg Documented by: Benzocaine/Menthol (Benzocaine/Menthol Lozeng 1 Each Lozenge) 1 each MUCOUS MEM Q4HR PRN PRN Reason: Sore Throat Last Admin: 03/28/20 22:36 Dose: 1 each Documented by: Fluconazole (Fluconazole 100 Mg Tab) 100 mg PO DAILY [facility] Metoprolol Succinate (Metoprolol Succinate (Er) 25 Mg Tab.Er.24h) 25 mg PO DAILY [facility] Last Admin: 04/07/20 08:28 Dose: 25 mg Documented by: Midodrine (Midodrine 5 Mg Tab) 10 mg PO AC-TID [facility] Last Admin: 04/07/20 16:46 Dose: 10 mg Documented by: Miscellaneous Information (Magnesium Replacement Protocol 1 Each Misc) 1 each MISCELLANE DAILY PRN; Protocol PRN Reason: Per Protocol Pantoprazole Sodium (Pantoprazole 40 Mg Tablet) 40 mg PO BID [facility] Last Admin: 04/07/20 08:29 Dose: 40 mg Documented by: Polyethylene Glycol (Polyethylene Glycol 3350 17 Gm Powd.Pack) 17 gm PO BID [facility] Last Admin: 04/07/20 08:28 Dose: 17 gm Documented by: Prochlorperazine Edisylate (Prochlorperazine Inj 10 Mg/2 Ml Vial) 10 mg IVP Q6H PRN PRN Reason: Nausea And Vomiting Last Admin: 04/05/20 09:01 Dose: 10 mg Documented by: Spironolactone (Spironolactone 25 Mg Tab) 12.5 mg PO DAILY [facility] Torsemide (Torsemide 20 Mg Tab) 20 mg PO DAILY [facility] Past medical history to include: Coronary artery disease with stent, multiple MIs, hyperlipidemia, peptic ulcer disease, CHF EF 35-40%, ventricular tachycardia ablation, AICD placement, chronic atrial fibrillation, Social history: Lives alone. Smoking a pack a day closed to 59 years, takes about 6 pack a week. 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 Conjunctiva normal. HEENT: External appearance of nose and ears normal, oral cavity -white plaques in the pharynx NECK: JVD possibly raised; masses not palpable. HEART: Irregular heart sounds; edema present. LUNGS: Respiratory rate increased, decreased breath sounds. ABDOMEN: Soft, no tenderness, no guarding rigidity, liver spleen not palpable, no masses palpable. PSYCH: Alert and oriented x3; mood and affect better INVESTIGATIONS, reviewed in the clinical context: April 07: Sodium 128 potassium 3.7 creatinine 1.84 bicarbonate 40 April 06: White count 12 hemoglobin 12.8 platelets 226 sodium 129 potassium 3.7 bicarb 39 bun 31 and creatinine 1.66 AST 56 ALT 131 March 31: White count 12.4 hemoglobin 11 platelets 158 pro-time 17.3 PTT 39.7 potassium 3.6 creatinine 1.37 bilirubin 5.6 AST 459 ALT 582 March 30: White count 11.5 hemoglobin 11.2 ProTime 22.8 PTT 45.0 sodium 133 potassium 3.6 BUN 42 creatinine 2.47 AST 1180 ALT 902 albumin 2.6 March 29: White count 13.2 hemoglobin 11.2 platelets 215 INR 4.0 PTT 49.1 potassium 4.2 bun 56 creatinine 3.38AST 2488 ALT 1242 alpha-1 antitrypsin normal at 181 70+ been normal at 31.1 tumor marker AFP test 2.5 Acute hepatitis panel including hepatitis A IgM antibody, hepatitis B surface antigen, hepatitis B core IgM antibody, hepatitis C IgG antibody all nonreactive. In a screen negative March 28: White count 19.7 hemoglobin 10.7 platelets 254 ProTime 89.3 INR 9.1 PTT 55.2 sodium 131 potassium 5.1 bun 47 creatinine 3.37 calcium 6.3 bilirubin 53.6 AST 07/22/2006 ALT 1695 troponin I 0.086, 0.068 pro-calcitonin 1.96 White count 29.2 hemoglobin 12.2 platelets 327 ProTime greater than 10 Potassium 6 bicarbonate 17 bun 29 creatinine 2.58 total bilirubin 3.8 AST 7392 ALT 1842 Admission testing: White count 25.4 hemoglobin 13.6 platelets 384 Sodium 135 potassium 5.7 creatinine 1.61 lactic 10.4 total bilirubin 3.2 AST 1472 ALT 537 Coronavirus-P/Cr-not detected Computed tomography scan of the abdomen pelvis-moderate size bilateral pleural effusion and compression atelectasis, [facility] [place] of the colon the right colon contracted gallbladder Ultrasound-contracted gallbladder EKG tracing personally reviewed by me-atrial fibrillation rate of 91 Chest x-ray film-pleural effusion atelectasis Previous testing: Hemoglobin 11.6 on March 14 Creatinine 1.16 on March 14 Assessment: -acute ischemic colitis given that the patient has got significant vascular disease, infective component cannot be ruled out-improving -Acute ischemic hepatitis, severe from CHF and hypotension- improving -Abnormal coagulation profile with a combination of patient poor oral intake and also being on an xarelto and also vitamin K received 3 doses of vitamin K. -AICD -Coronary artery disease with prior history of stents -Acute on chronic congestive heart failure exacerbation from systolic dysfunction EF 30-35%-better -Acute hypoxic respiratory failure from pulmonary edema on 2 L of nasal cannula- improving -Moderate tricuspid regurgitation -Hyperlipidemia -Persistent atrial fibrillation/flutter-rate controlled -Chronic nicotine dependence patient active cigarette smoker -Acute kidney injury likely ATN from cardiorenal syndrome, the possible contribution from contrast-induced nephropathy from cardiac catheterization and IV contrast with computed tomography slow improvement -Bilateral pleural effusion from CHF with a prior history of thoracentesis -Metabolic acidosis multifactorial -Metabolic alkalosis from diuresis -Hyperkalemia from renal failure-improved -Troponin leak from acute kidney injury and hemodynamic instability -Hyponatremia- -Oral pharyngeal candidiasis Plan: Dose of Demadex decreased to 20 mg daily. Samsca 500 mg given once by Dr. Benavidez. Color 100 mL fluid restriction. Give Diflucan 200 mg 1 and start 100 mg daily from tomorrow. Discussed with patient.
[2020-04-08] MEDS: MIDODRINE 5 MG TAB PO SCH ×3 (06:39→16:59)
[2020-04-08] MEDS: IPRATROPIUM-ALBUTEROL 3 ML NEB INHALATION SCH ×5 (07:54→20:02)
[2020-04-08] MEDS: PANTOPRAZOLE 40 MG TABLET PO SCH ×2 (08:51→21:30)
[2020-04-08] MEDS: FLUCONAZOLE 100 MG TAB PO SCH (08:51)
[2020-04-08] MEDS: SPIRONOLACTONE 25 MG TAB PO SCH (08:51)
[2020-04-08] MEDS: acetaZOLAMIDE 250 MG TAB PO SCH (08:51)
[2020-04-08] MEDS: polyethylene glycoL 3350 17 GM POWD.PACK PO SCH ×2 (08:51→21:30)
[2020-04-08] MEDS: METOPROLOL SUCCINATE (ER) 25 MG TAB.ER.24H PO SCH (08:52)
[2020-04-08] MEDS: APIXABAN 5 MG TAB PO SCH ×2 (08:52→21:30)
[2020-04-08 08:53] LABS: Albumin 3.4 g/dL (3.5-5.0); Magnesium 1.9 mg/dL (1.6-2.3); Potassium 3.8 mmol/L (3.5-5.1); Total Bilirubin 3.4 mg/dL (0.2-1.3); Total Protein 7.3 g/dL (6.3-8.2)
[2020-04-08] MEDS ORDERED: TORSEMIDE 20 MG TAB PO SCH (09:00)
--- NOTE | 2020-04-08 11:03 | P.PN ---
Subjective Patient is seen in follow-up for acute kidney injury. Renal function worsened from diuresis. Good urine output. Maintained on oral torsemide. Currently on 1.5 L nasal cannula. Oral intake slowly improving. Edema improved. Vital signs are stable. General: The patient appeared well nourished and normally developed. HEENT: Head exam is unremarkable. Neck is without jugular venous distension. LUNGS: Breath sounds decreased. HEART: Rate and Rhythm are regular. ABDOMEN: Soft, nontender. EXTREMITITES: Trace edema. Objective - Vital Signs Vital signs: Vital Signs Temp 97.6 F 04/08/20 08:48 Pulse 73 04/08/20 09:00 Resp 16 04/08/20 09:00 BP 93/54 04/08/20 09:00 Pulse Ox 99 04/08/20 09:00 Intake & Output 04/07/20 04/08/20 04/08/20 18:59 06:59 18:59 Intake Total 658 240 Output Total 1075 0 Balance -417 -2049 240 Weight 64.9 kg 62.4 kg Intake: Oral 658 240 Output: Urine 1075 0 Other: Voiding Method Urinal Urinal Urinal # Voids 1 - Labs CBC & Chem 7: 04/06/20 07:54 04/08/20 07:15 Labs: Abnormal Lab Results - Last 24 Hours (Table) 04/07/20 04/08/20 Range/Units 16:42 07:15 Sodium 127 L 130 L (137-145) mmol/L Chloride 80 L (98-107) mmol/L Carbon Dioxide 39 H (22-30) mmol/L BUN 35 H (9-20) mg/dL Creatinine 2.12 H (0.66-1.25) mg/dL Glucose 106 H (74-99) mg/dL Total Bilirubin 3.4 H (0.2-1.3) mg/dL ALT 104 H (4-49) U/L Alkaline Phosphatase 270 H (38-126) U/L Albumin 3.4 L (3.5-5.0) g/dL Assessment and Plan Plan: Assessment: 1. Acute kidney injury secondary to ATN secondary to cardiorenal syndrome as well as contrast-induced acute kidney injury. Renal function worse from diuresis - cr 2.1 to today. 2. Acute on chronic systolic CHF with ejection fraction of 25-30% with moderate to severe tricuspid regurgitation. 3. Volume overload. Improved with diuresis and thoracentesis. 1.9 L drained from the right lung on April 05. 4. 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 5. Hypervolemic hyponatremia. Urine osmolality 305 and urine random sodium 108. Status post [facility] [place] April 07. Sodium level better. 6. Hypokalemia secondary to diuresis. Stable. Magnesium normal. Plan: Stop Diamox and torsemide. Encourage oral intake, particularly protein. 1200 mL fluid restriction. Avoid nephrotoxins. Repeat electrolytes in the morning. Continue to monitor volume status closely.
--- NOTE | 2020-04-08 12:40 | P.PN ---
Subjective Progress Note Date: 04/08/20 Principal diagnosis: Acute on chronic systolic congestive heart failure, ischemic cardiomyopathy, cardiogenic shock This is a 70-year-old white male patient who was admitted to the hospital on 03/26/2020 when he presented with symptoms of vomiting, dry heaves, diffuse abdominal pain ongoing since November. Patient has extensive medical history including multiple episodes of myocardial infarction, CAD with stenting, ischemic cardiomyopathy, EF of 30-35%, ventricular tachycardia status post AICD placement, and patient had ICD discharge in November 2019, history of multiple ablations in the past. CT of the abdomen and pelvis showed moderate-sized bilateral pleural effusions, right more so than the left, small amount of ascites. His previous thoracentesis showed transudate of pleural effusion related to history of CHF. Patient is chronically short of breath on a regular basis, he does not feel significantly more short of breath than usual, he was placed on dobutamine infusion which was cut back yesterday to 2.5 mics per kilo per minute, this point in the morning and 20 ML per hour, he is still on 2 L of oxygen, lung sounds are diminished at the bases, no wheezing, no rhonchi. Denies any abdominal discomfort, his CT of the abdomen and pelvis was concerning for wall thickening of the colon particularly in the right colon the possibility of colitis, there was also evidence of extensive vascular disease, and there was a possibility of ischemic or infectious colitis. Gallbladder ultrasound showed mostly contracted gallbladder no gallstones or dilated ducts. Patient was considered a very high surgical risk when he was seen by surgery, and the recommendation was to treat the patient conservatively. His INR was also extremely elevated upon admission, currently trending down. His abdominal contents of nausea or vomiting in the last 24 hours, blood pressure at times on the lower side, with a systolic between 70 to low 100s, and diastolic in the 60 s, however clinically patient is asymptomatic, is a bit hypothermic, with 96.6F core temperature, and patient has a bear hugger. His respirations are nonlabored, patient denies any chest pain, patient went into A. fib last night, but the rate is controlled. Dobutamine will be discontinued this morning, cardiology is following. Patient got a dose of IV Lasix yesterday which seems to have increased his urine output, and improved his breathing. Today's chest x-ray shows some some worsening pleural effusions, atelectasis. Labs reviewed, with blood cell count is improving, down to 13.2, hemoglobin is 11.2, and is down to 4.0, sodium is 132, potassium is 4.2, chloride is 95, BUN is 56, and c reatinine is 3.38, his liver enzymes have improved, namely AST is down to 2488, ALT is 1242, and alkaline phosphatase is relatively stable from yesterday but down from admission, down to 153 on today's labs, COVID 19 was negative, urinalysis showed no evidence of infection, cultures have shown no growth. he is in overall 1.3 L of negative fluid balance over last 24 hours. On 03/30/2020 patient seen in follow-up in the intensive care unit, awake and alert, resting comfortably in bed, he is oriented 3, appears to be in acute distress, is in sinus mechanism with a controlled rate, he is on 2 L of oxygen, with a pulse ox of 95%, no fever no chills, at times he has had some low systolic blood pressure readings with systolic in the 70s, clinically asymptomatic, currently blood pressure is 90/58, debridement drip was discontinued, No arrhythmias, no complaints of chest pain, no worsening dyspnea, lung sounds are diminished at the bases with some limited crackles. Today's chest x-ray shows diffuse interstitial pattern, bilateral consolidation and pleural effusions. Patient remains on Zosyn for an antibiotic coverage, IV fluids with 0.9, secondary to 50 ML per hour. Today's labs have been reviewed, with blood cell count continues to improve, down to 11.5 on today's labs, hemoglobin is 11.2, INR is 2.3, and hematology is following, patient received vitamin K yesterday for INR of 4.0., Renal profile continues to improve, BUN is down to 42, creatinine is 2.47, liver enzymes are improving patient is tolerating oral intake, no abdominal discomfort The patient is seen today 03/31/2020 follow-up on the selective care unit. He is currently resting comfortably in bed. Awake and alert in no acute distress. Maintaining O2 saturations in the 90s on 2 L/m per nasal cannula. He did drop to 87% when checked on room air. White count 12.4. Hemoglobin 11.0. INR 1.7. Sodium 133. Potassium 3.6. Creatinine 1.37. AST 459, ALT 582. He remains on diuretics, antibiotics in the form of Zosyn, bronchodilators. The patient is seen today 04/08/2020 in follow-up on the selective care unit. He is currently awake and alert and resting comfortably in bed. Still requiring 1.5 L/m per nasal cannula to maintain O2 saturations in the low 90s. During a 6 minute walk he did desaturate to 84% and will most likely need home oxygen. Depending on date of discharge. Blood cultures revealed no growth. Sodium 1:30. Potassium 3.8. Bicarb 39. BUN 35. Creatinine 2.12. AST 51. ALT 104. Remains on bronchodilators, anticoagulated with Eliquis, Aldactone. Diamox and diuretics were discontinued her nephrology services. Objective - Vital Signs Vital signs: Vital Signs Temp 97.8 F 04/08/20 11:31 Pulse 88 04/08/20 11:56 Resp 18 04/08/20 11:31 BP 102/62 04/08/20 11:31 Pulse Ox 100 04/08/20 11:31 Intake & Output 04/07/20 04/08/20 04/08/20 18:59 06:59 18:59 Intake Total 658 240 Output Total 1075 0 Balance -417 -2049 240 Weight 64.9 kg 62.4 kg Intake: Oral 658 240 Output: Urine 1075 2049 Other: Voiding Method Urinal Urinal Urinal # Voids 1 - Exam GENERAL EXAM: Alert, very pleasant, 70-year-old male patient, on 1.5 L of oxygen and pulse ox 100% comfortable in no apparent distress. HEAD: Normocephalic/atraumatic. EYES: Normal reaction of pupils, equal size. Conjunctiva pink, sclera white. NOSE: Clear with pink turbinates. THROAT: No erythema or exudates. NECK: No masses, no JVD, no thyroid enlargement, no adenopathy. CHEST: No chest wall deformity. Symmetrical expansion. LUNGS: Equal air entry with bibasilar crackles CVS: Irregular rate and rhythm, normal S1 and S2, no gallops, positive murmur, no rubs ABDOMEN: Soft, nontender. No hepatosplenomegaly, normal bowel sounds, no guard ing or rigidity. EXTREMITIES: No clubbing, no edema, no cyanosis, 2+ pulses and upper and lower extremities. MUSCULOSKELETAL: Muscle strength and tone normal. SPINE: No scoliosis or deformity SKIN: No rashes CENTRAL NERVOUS SYSTEM: Alert and oriented -3. No focal deficits, tone is normal in all 4 extremities. PSYCHIATRIC: Alert and oriented -3. Appropriate affect. Intact judgment and insight. - Labs CBC & Chem 7: 04/06/20 07:54 04/08/20 07:15 Labs: Abnormal Lab Results - Last 24 Hours (Table) 04/07/20 04/08/20 Range/Units 16:42 07:15 Sodium 127 L 130 L (137-145) mmol/L Chloride 80 L (98-107) mmol/L Carbon Dioxide 39 H (22-30) mmol/L BUN 35 H (9-20) mg/dL Creatinine 2.12 H (0.66-1.25) mg/dL Glucose 106 H (74-99) mg/dL Total Bilirubin 3.4 H (0.2-1.3) mg/dL ALT 104 H (4-49) U/L Alkaline Phosphatase 270 H (38-126) U/L Albumin 3.4 L (3.5-5.0) g/dL Assessment and Plan Assessment: 1. Acute on chronic systolic heart failure, and the patient with ischemic cardiomyopathy and left ventricular dysfunction and ejection fraction of 30-35% 2. Cardiogenic shock, resolved. Severe mitral regurgitation 3. Chronic atrial fibrillation anticoagulated with warfarin 4. Congestive hepatopathy, 5. Cardiorenal syndrome 6. Lactic acidosis related to hypoperfusion related to acute exacerbation of systolic CHF 7. Rule out mesenteric ischemia 8. Cardiorenal syndrome 9. Coumadin induced coagulopathy 10. History of coronary artery disease with previous stenting 11. Hyperlipidemia 12. History of hypertension 13. Prior history of myocardial infarction 14. Status post pacemaker insertion Plan: The patient was seen and evaluated by Dr. Batista Currently stable from the pulmonary standpoint He will require home oxygen as he did desaturate to 84% during the 6 minute walk Recovered and maintaining O2 saturation greater than 90% on 1.5 L. Diamox and diuretics on hold per nephrology Follow-up labs pending I, the cosigning physician, performed a history & physical examination of the patient. Lungs sounds with bibasilar crackles. Maintaining good O2 saturations in the 90s on 1.5 L/m per nasal cannula. I discussed the assessment and plan of care with my nurse practitioner, Edilia Malik. I attest to the above note as dictated by her.
--- NOTE | 2020-04-08 13:30 | P.PN ---
Subjective Progress Note Date: 04/08/20 HISTORY OF PRESENT ILLNESS: Patient examined this morning at the bedside. He denies chest pain or pressure. He denies shortness of breath. Creatinine increased today to 2.12. PHYSICAL EXAM: VITAL SIGNS: Reviewed. GENERAL: Well-developed in no acute distress. NECK: Supple. No JVD or thyromegaly LUNGS: Respirations even and unlabored. Lungs diminished bilaterally. HEART: Regular rate and rhythm. S1 and S2 heard. Systolic murmur noted EXTREMITIES: Normal range of motion. No clubbing or cyanosis. Peripheral pulses intact. 1+ bilateral lower extremity edema ASSESSMENT: 1. Shock of unclear etiology. Predominantly appears septic shock with increased white blood cell count and lactic acidosis however he does have significant cardiomyopathy and at least moderate to severe MR and may be a component of cardiogenic shock. Dobutamine has been weaned. 2. Acute liver injury, likely shock liver with coagulopathy. Improving. Possible additional component of amiodarone liver injury. Amiodarone discontinued 3. Ischemic cardiomyopathy with EF 25-30% 4. 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 At least moderate to severe posteriorly directed mitral regurgitation with posterior leaflet tethering. Echo this admission showed moderate mitral regurg itation. 6. Moderate to severe tricuspid regurgitation 7. History of hypertension 8. Coagulopathy, improving 9. Acute kidney injury likely related to contrast-induced nephropathy from CTA as well as ATN from hypotension 10. Anemia 11. Elevated troponin, likely type II mechanism from shock 12. Paroyxsmal A. fib 13. AICD present 14. History of ventricular tachycardia status post ablation and AICD, previously on amiodarone 15. Persistent nausea, vomiting, abdominal pain since November. May be a component of mesenteric ischemia. PLAN: Continue current cardiac medications Patient is stable from a cardiac perspective. We will sign off. Please reconsult if needed. Nurse practitioner note has been reviewed by physician. Signing provider agrees with the documented findings, assessment, and plan of care. Objective - Vital Signs Vital signs: Vital Signs Temp 97.8 F 04/08/20 11:31 Pulse 88 04/08/20 11:56 Resp 18 04/08/20 11:31 BP 102/62 04/08/20 11:31 Pulse Ox 100 04/08/20 11:31 Intake & Output 04/07/20 04/08/20 04/08/20 18:59 06:59 18:59 Intake Total 658 240 Output Total 1072049 400 Balance -160 Weight 64.9 kg 62.4 kg Intake: Oral 658 240 Output: Urine [id number] 400 Other: Voiding Method Urinal Urinal Urinal # Voids 1 2 - Labs CBC & Chem 7: 04/06/20 07:54 04/08/20 07:15 Labs: Abnormal Lab Results - Last 24 Hours (Table) 04/07/20 04/08/20 Range/Units 16:42 07:15 Sodium 127 L 130 L (137-145) mmol/L Chloride 80 L (98-107) mmol/L Carbon Dioxide 39 H (22-30) mmol/L BUN 35 H (9-20) mg/dL Creatinine 2.12 H (0.66-1.25) mg/dL Glucose 106 H (74-99) mg/dL Total Bilirubin 3.4 H (0.2-1.3) mg/dL ALT 104 H (4-49) U/L Alkaline Phosphatase 270 H (38-126) U/L Albumin 3.4 L (3.5-5.0) g/dL
--- NOTE | 2020-04-08 15:35 | PN ---
PROGRESS NOTE DATE OF DICTATION: 04/08/2020 The patient is doing better. He is trying to walk around the hallway, tolerating well. He denies any abdominal pain. No nausea, no vomiting. Still continues to have some shortness of breath and remains on 2 L of oxygen. Appetite has been improving. Overall denies any new symptoms. PHYSICAL EXAMINATION: He appears comfortable. VITAL SIGNS: Blood pressure is 102/62, pulse rate 100, temperature 98. HEENT examination unremarkable. Conjunctivae pink. Sclerae anicteric. Oral cavity no lesions. NECK: No JVD or lymph node enlargement. CHEST: Clear to auscultation. HEART: Regular rate and rhythm. ABDOMEN: Soft. It was non-tender, non-distended. Bowel sounds are positive. No organomegaly. EXTREMITIES: No pedal edema. NEUROLOGIC: He is alert and oriented x3. No focal deficits. LABS: Labs from today: CBC was not done, but sodium 130, potassium 3.8, chloride 18, CO2 39, BUN 35, creatinine 2.1. T-bilirubin 3.4, AST normal, ALT 104, and alkaline phosphatase is 270. IMPRESSION: 1. Elevated liver function tests and jaundice which are gradually improving; serum transaminases almost normalized. Bilirubin is still 3.4. All of this explaining the basis of passive venous congestion and ischemic hepatitis. 2. Exacerbation of congestive heart failure, gradually improving. 3. History of atrial fibrillation, on Eliquis. 4. History of hypercholesteremia. Currently statins have been stopped because of elevated LFTs. 5. History of chronic obstructive pulmonary disease. RECOMMENDATIONS: 1. Continue to monitor LFTs closely. 2. Continue symptomatic and supportive care. 3. The patient was advised to follow up in the office in 2 weeks following discharge from the hospital to monitor his LFTs. 4. Will follow with you closely. Thank you for this consultation. MMODL / IJN: [id number] /
--- NOTE | 2020-04-08 17:51 | P.PN ---
Progress Note - Text Progress Note Date: 04/08/20 Chief Complaint: Abdominal pain History of presenting complaint: This is a pleasant 69-year-old patient of Dr. Cheatham. Chronic stable medical conditions include coronary artery disease, hyperlipidemia, multiple MIs in the past, coronary stent, peptic ulcer disease, ischemic cardiomyopathy, previous V. tach ablation, atrial fibrillation,. 2 weeks ago patient was admitted with CHF exacerbation. Cardiac catheterization [March 14] showed chronically occluded RCA with extensive [id number] collaterals. Also some focal obstructive lesion in the circumflex. Creatinine then was 1.16. Patient now presents with having nausea vomiting "a few days. Also having dif fuse abdominal pain. Appetite is rather poor. Has not had a bowel movement for 5 days. Shortness of breath. Denies any fever and chills. Occasional cough. Some edema. Has orthopnea. Admitted with suspected ischemic colitis, causing resultant hypotension, severe lactic acidosis ischemic hepatitis, abnormal regulation profile with a contribution from xarelto, pulmonary edema with acute CHF exacerbation. Patient was given vitamin K put on IV dobutamine, bronchodilators-admitted to ICU. Started on IV Zosyn. Patient denies been into fluid overload. Has been receiving IV diuretics. Moved out of the medical floor. Developed oral candidiasis. Put on Diflucan Today-difficulty swallowing improved. Oral intake slowly improving. Did walk in the hallway today. Review of systems: Was done for constitutional, cardiovascular, GI, pulmonary. relevant finding as above Active Medications Albuterol/Ipratropium (Ipratropium-Albuterol 3 Ml Neb) 3 ml INHALATION RT-QID [facility] Last Admin: 04/08/20 15:19 Dose: 3 ml Documented by: Apixaban (Apixaban 5 Mg Tab) 5 mg PO BID [facility] Last Admin: 04/08/20 08:52 Dose: 5 mg Documented by: Benzocaine/Menthol (Benzocaine/Menthol Lozeng 1 Each Lozenge) 1 each MUCOUS MEM Q4HR PRN PRN Reason: Sore Throat Last Admin: 03/28/20 22:36 Dose: 1 each Documented by: Fluconazole (Fluconazole 100 Mg Tab) 100 mg PO DAILY [facility] Last Admin: 04/08/20 08:51 Dose: 100 mg Documented by: Metoprolol Succinate (Metoprolol Succinate (Er) 25 Mg Tab.Er.24h) 25 mg PO DAILY [facility] Last Admin: 04/08/20 08:52 Dose: 25 mg Documented by: Midodrine (Midodrine 5 Mg Tab) 10 mg PO AC-TID [facility] Last Admin: 04/08/20 16:59 Dose: 10 mg Documented by: Miscellaneous Information (Magnesium Replacement Protocol 1 Each Misc) 1 each MISCELLANE DAILY PRN; Protocol PRN Reason: Per Protocol Pantoprazole Sodium (Pantoprazole 40 Mg Tablet) 40 mg PO BID [facility] Last Admin: 04/08/20 08:51 Dose: 40 mg Documented by: Polyethylene Glycol (Polyethylene Glycol 3350 17 Gm Powd.Pack) 17 gm PO BID [facility] Last Admin: 04/08/20 08:51 Dose: 17 gm Documented by: Prochlorperazine Edisylate (Prochlorperazine Inj 10 Mg/2 Ml Vial) 10 mg IVP Q6H PRN PRN Reason: Nausea And Vomiting Last Admin: 04/05/20 09:01 Dose: 10 mg Documented by: Spironolactone (Spironolactone 25 Mg Tab) 12.5 mg PO DAILY [facility] Last Admin: 04/08/20 08:51 Dose: 12.5 mg Documented by: Past medical history to include: Coronary artery disease with stent, multiple MIs, hyperlipidemia, peptic ulcer disease, CHF EF 35-40%, ventricular tachycardia ablation, AICD placement, chronic atrial fibrillation, Social history: Lives alone. Smoking a pack a day closed to 59 years, takes about 6 pack a week. 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 Conjunctiva normal. HEENT: External appearance of nose and ears normal, oral cavity -white plaques in the pharynx NECK: JVD possibly raised; masses not palpable. HEART: Irregular heart sounds; edema present. LUNGS: Respiratory rate normal, decreased breath sounds. ABDOMEN: Soft, no tenderness, no guarding rigidity, liver spleen not palpable, no masses palpable. PSYCH: Alert and oriented x3; mood and affect better INVESTIGATIONS, reviewed in the clinical context: April 08: Sodium 1:30 potassium 3.8 bun 35 creatinine 2.12 April 07: Sodium 128 potassium 3.7 creatinine 1.84 bicarbonate 40 April 06: White count 12 hemoglobin 12.8 platelets 226 sodium 129 potassium 3.7 bicarb 39 bun 31 and creatinine 1.66 AST 56 ALT 131 March 31: White count 12.4 hemoglobin 11 platelets 158 pro-time 17.3 PTT 39.7 potassium 3.6 creatinine 1.37 bilirubin 5.6 AST 459 ALT 582 March 30: White count 11.5 hemoglobin 11.2 ProTime 22.8 PTT 45.0 sodium 133 potassium 3.6 BUN 42 creatinine 2.47 AST 1180 ALT 902 albumin 2.6 March 29: White count 13.2 hemoglobin 11.2 platelets 215 INR 4.0 PTT 49.1 potassium 4.2 bun 56 creatinine 3.38AST 2488 ALT 1242 alpha-1 antitrypsin normal at 181 70+ been normal at 31.1 tumor marker AFP test 2.5 Acute hepatitis panel including hepatitis A IgM antibody, hepatitis B surface antigen, hepatitis B core IgM antibody, hepatitis C IgG antibody all nonreactive. In a screen negative March 28: White count 19.7 hemoglobin 10.7 platelets 254 ProTime 89.3 INR 9.1 PTT 55.2 sodium 131 potassium 5.1 bun 47 creatinine 3.37 calcium 6.3 bilirubin 53.6 AST 07/22/2006 ALT 1695 troponin I 0.086, 0.068 pro-calcitonin 1.96 White count 29.2 hemoglobin 12.2 platelets 327 ProTime greater than 10 Potassium 6 bicarbonate 17 bun 29 creatinine 2.58 total bilirubin 3.8 AST 7392 ALT 1842 Admission testing: White count 25.4 hemoglobin 13.6 platelets 384 Sodium 135 potassium 5.7 creatinine 1.61 lactic 10.4 total bilirubin 3.2 AST 1472 ALT 537 Coronavirus-P/Cr-not detected Computed tomography scan of the abdomen pelvis-moderate size bilateral pleural effusion and compression atelectasis, [facility] [place] of the colon the right colon contracted gallbladder Ultrasound-contracted gallbladder EKG tracing personally reviewed by me-atrial fibrillation rate of 91 Chest x-ray film-pleural effusion atelectasis Previous testing: Hemoglobin 11.6 on March 14 Creatinine 1.16 on March 14 Assessment: -acute ischemic colitis given that the patient has got significant vascular disease, infective component cannot be ruled out-improving -Acute ischemic hepatitis, severe from CHF and hypotension- improving -Abnormal coagulation profile with a combination of patient poor oral intake and also being on an xarelto and also vitamin K received 3 doses of vitamin K. -AICD -Coronary artery disease with prior history of stents -Acute on chronic congestive heart failure exacerbation from systolic dysfunction EF 30-35%-better -Acute hypoxic respiratory failure from pulmonary edema on 2 L of nasal cannula- improving -Moderate tricuspid regurgitation -Hyperlipidemia -Persistent atrial fibrillation/flutter-rate controlled -Chronic nicotine dependence patient active cigarette smoker -Acute kidney injury likely ATN from cardiorenal syndrome, the possible contribution from contrast-induced nephropathy from cardiac catheterization and IV contrast with computed tomography slow improvement -Bilateral pleural effusion from CHF with a prior history of thoracentesis -Metabolic acidosis multifactorial -Metabolic alkalosis from diuresis -Hyperkalemia from renal failure-improved -Troponin leak from acute kidney injury and hemodynamic instability -Hyponatremia-hyper Alexis make -Oral pharyngeal candidiasis Plan: Diamox and torsemide held by nephrology. Spoke to the nurse to get choice of food for the patient prefers shakes etc. Follow labs.
[2020-04-09] MEDS: MIDODRINE 5 MG TAB PO SCH ×3 (06:31→17:56)
[2020-04-09] MEDS: IPRATROPIUM-ALBUTEROL 3 ML NEB INHALATION SCH ×4 (08:11→20:02)
--- NOTE | 2020-04-09 09:14 | P.PN ---
Subjective Progress Note Date: 04/09/20 Principal diagnosis: Acute on chronic systolic congestive heart failure, ischemic cardiomyopathy, cardiogenic shock This is a 70-year-old white male patient who was admitted to the hospital on 03/26/2020 when he presented with symptoms of vomiting, dry heaves, diffuse abdominal pain ongoing since November. Patient has extensive medical history including multiple episodes of myocardial infarction, CAD with stenting, ischemic cardiomyopathy, EF of 30-35%, ventricular tachycardia status post AICD placement, and patient had ICD discharge in November 2019, history of multiple ablations in the past. CT of the abdomen and pelvis showed moderate-sized bilateral pleural effusions, right more so than the left, small amount of ascites. His previous thoracentesis showed transudate of pleural effusion related to history of CHF. Patient is chronically short of breath on a regular basis, he does not feel significantly more short of breath than usual, he was placed on dobutamine infusion which was cut back yesterday to 2.5 mics per kilo per minute, this point in the morning and 20 ML per hour, he is still on 2 L of oxygen, lung sounds are diminished at the bases, no wheezing, no rhonchi. Denies any abdominal discomfort, his CT of the abdomen and pelvis was concerning for wall thickening of the colon particularly in the right colon the possibility of colitis, there was also evidence of extensive vascular disease, and there was a possibility of ischemic or infectious colitis. Gallbladder ultrasound showed mostly contracted gallbladder no gallstones or dilated ducts. Patient was considered a very high surgical risk when he was seen by surgery, and the recommendation was to treat the patient conservatively. His INR was also extremely elevated upon admission, currently trending down. His abdominal contents of nausea or vomiting in the last 24 hours, blood pressure at times on the lower side, with a systolic between 70 to low 100s, and diastolic in the 60 s, however clinically patient is asymptomatic, is a bit hypothermic, with 96.6F core temperature, and patient has a bear hugger. His respirations are nonlabored, patient denies any chest pain, patient went into A. fib last night, but the rate is controlled. Dobutamine will be discontinued this morning, cardiology is following. Patient got a dose of IV Lasix yesterday which seems to have increased his urine output, and improved his breathing. Today's chest x-ray shows some some worsening pleural effusions, atelectasis. Labs reviewed, with blood cell count is improving, down to 13.2, hemoglobin is 11.2, and is down to 4.0, sodium is 132, potassium is 4.2, chloride is 95, BUN is 56, and c reatinine is 3.38, his liver enzymes have improved, namely AST is down to 2488, ALT is 1242, and alkaline phosphatase is relatively stable from yesterday but down from admission, down to 153 on today's labs, COVID 19 was negative, urinalysis showed no evidence of infection, cultures have shown no growth. he is in overall 1.3 L of negative fluid balance over last 24 hours. On 03/30/2020 patient seen in follow-up in the intensive care unit, awake and alert, resting comfortably in bed, he is oriented 3, appears to be in acute distress, is in sinus mechanism with a controlled rate, he is on 2 L of oxygen, with a pulse ox of 95%, no fever no chills, at times he has had some low systolic blood pressure readings with systolic in the 70s, clinically asymptomatic, currently blood pressure is 90/58, debridement drip was discontinued, No arrhythmias, no complaints of chest pain, no worsening dyspnea, lung sounds are diminished at the bases with some limited crackles. Today's chest x-ray shows diffuse interstitial pattern, bilateral consolidation and pleural effusions. Patient remains on Zosyn for an antibiotic coverage, IV fluids with 0.9, secondary to 50 ML per hour. Today's labs have been reviewed, with blood cell count continues to improve, down to 11.5 on today's labs, hemoglobin is 11.2, INR is 2.3, and hematology is following, patient received vitamin K yesterday for INR of 4.0., Renal profile continues to improve, BUN is down to 42, creatinine is 2.47, liver enzymes are improving patient is tolerating oral intake, no abdominal discomfort The patient is seen today 03/31/2020 follow-up on the selective care unit. He is currently resting comfortably in bed. Awake and alert in no acute distress. Maintaining O2 saturations in the 90s on 2 L/m per nasal cannula. He did drop to 87% when checked on room air. White count 12.4. Hemoglobin 11.0. INR 1.7. Sodium 133. Potassium 3.6. Creatinine 1.37. AST 459, ALT 582. He remains on diuretics, antibiotics in the form of Zosyn, bronchodilators. The patient is seen today 04/08/2020 in follow-up on the selective care unit. He is currently awake and alert and resting comfortably in bed. Still requiring 1.5 L/m per nasal cannula to maintain O2 saturations in the low 90s. During a 6 minute walk he did desaturate to 84% and will most likely need home oxygen. Depending on date of discharge. Blood cultures revealed no growth. Sodium 1:30. Potassium 3.8. Bicarb 39. BUN 35. Creatinine 2.12. AST 51. ALT 104. Remains on bronchodilators, anticoagulated with Eliquis, Aldactone. Diamox and diuretics were discontinued her nephrology services. On 04/09/20 the patient continues to do well. No worsening shortness of breath. No cough or congestion. Remains on 1.5L per minute per nasal canula. Labs pen ding. Cardiorenal syndrome being adressed by nephrology. Objective - Vital Signs Vital signs: Vital Signs Temp 98.0 F 04/09/20 00:00 Pulse 76 04/09/20 08:29 Resp 18 04/09/20 04:00 BP 96/53 04/09/20 04:00 Pulse Ox 100 04/09/20 04:00 Intake & Output 04/08/20 04/09/20 04/09/20 18:59 06:59 18:59 Intake Total 876 Output Total 1750 200 Balance -874 -200 Weight 68 kg Intake: Oral 876 Output: Urine 1750 200 Other: Voiding Method Urinal Urinal # Voids 2 1 # Bowel Movements 1 1 - Exam GENERAL EXAM: Alert, very pleasant, 70-year-old male patient, on 1.5 L of oxygen and pulse ox 100% comfortable in no apparent distress. HEAD: Normocephalic/atraumatic. EYES: Normal reaction of pupils, equal size. Conjunctiva pink, sclera white. NOSE: Clear with pink turbinates. THROAT: No erythema or exudates. NECK: No masses, no JVD, no thyroid enlargement, no adenopathy. CHEST: No chest wall deformity. Symmetrical expansion. LUNGS: Equal air entry with bibasilar crackles CVS: Irregular rate and rhythm, normal S1 and S2, no gallops, positive murmur, no rubs ABDOMEN: Soft, nontender. No hepatosplenomegaly, normal bowel sounds, no guarding or rigidity. EXTREMITIES: No clubbing, no edema, no cyanosis, 2+ pulses and upper and lower extremities. MUSCULOSKELETAL: Muscle strength and tone normal. SPINE: No scoliosis or deformity SKIN: No rashes CENTRAL NERVOUS SYSTEM: Alert and oriented -3. No focal deficits, tone is normal in all 4 extremities. PSYCHIATRIC: Alert and oriented -3. Appropriate affect. Intact judgment and insight. - Labs CBC & Chem 7: 04/06/20 07:54 04/08/20 07:15 Assessment and Plan Assessment: 1. Acute on chronic systolic heart failure, and the patient with ischemic cardiomyopathy and left ventricular dysfunction and ejection fraction of 30-35% 2. Cardiogenic shock, resolved. Severe mitral regurgitation 3. Chronic atrial fibrillation anticoagulated with warfarin 4. Congestive hepatopathy, 5. Cardiorenal syndrome 6. Lactic acidosis related to hypoperfusion related to acute exacerbation of systolic CHF 7. Rule out mesenteric ischemia 8. Cardiorenal syndrome 9. Coumadin induced coagulopathy 10. History of coronary artery disease with previous stenting 11. Hyperlipidemia 12. History of hypertension 13. Prior history of myocardial infarction 14. Status post pacemaker insertion Plan: Currently stable from the pulmonary standpoint He will require home oxygen as he did desaturate to 84% during the 6 minute walk Recovered and maintaining O2 saturation greater than 90% on 1.5 L. Diamox and diuretics on hold per nephrology Follow-up labs pending I, the cosigning physician, performed a history & physical examination of the patient. Lungs sounds with bibasilar crackles. Maintaining good O2 saturations in the 90s on 1.5 L/m per nasal cannula. I discussed the assessment and plan of care with my nurse practitioner, Edilia Malik. I attest to the above note as dictated by her.
[2020-04-09] MEDS: FLUCONAZOLE 100 MG TAB PO SCH (09:35)
[2020-04-09] MEDS: SPIRONOLACTONE 25 MG TAB PO SCH (09:35)
[2020-04-09] MEDS: METOPROLOL SUCCINATE (ER) 25 MG TAB.ER.24H PO SCH (09:35)
[2020-04-09] MEDS: polyethylene glycoL 3350 17 GM POWD.PACK PO SCH ×2 (09:35→21:42)
[2020-04-09] MEDS: PANTOPRAZOLE 40 MG TABLET PO SCH ×2 (09:35→21:42)
[2020-04-09] MEDS: APIXABAN 5 MG TAB PO SCH ×2 (09:35→21:42)
--- NOTE | 2020-04-09 09:54 | PN ---
PROGRESS NOTE DATE OF SERVICE: 04/09/2020 Patient is a 70-year-old pleasant white male admitted to the hospital with exacerbation of congestive heart failure, nausea, vomiting, diffuse abdominal pain. He was subsequently diagnosed with elevated LFTs secondary to ischemic hepatitis. Overall his condition has been gradually improving. He denies any abdominal pain. No nausea, no vomiting. LFTs are gradually improving. He is able to walk better but he is feeling weak and tired. PHYSICAL EXAMINATION: He appears comfortable, in no apparent distress. VITAL SIGNS: Vital signs stable. Blood pressure is 96/53, pulse rate 62, temperature 98. HEENT: Examination unremarkable. Conjunctivae are pink. Sclerae anicteric. Oral cavity no lesions. NECK: No JVD or lymph node enlargement. CHEST: Clear auscultation. HEART: Regular rate and rhythm. ABDOMEN: Soft. Bowel sounds are positive. No organomegaly. EXTREMITIES: No pedal edema. NEUROLOGIC: Alert and oriented x3. No focal deficits. LABS: From today T bilirubin 3.4, AST of 51, ALT 104, alkaline phosphatase 270. IMPRESSION: 1. Elevated LFTs secondary to ischemic hepatitis and hypoperfusion. LFTs are gradually improving. Bilirubin was at 3.4 yesterday. 2. Possible underlying chronic liver disease. 3. Exacerbation of congestive heart failure. 4. Acute kidney injury. 5. Chronic obstructive pulmonary disease, on home O2. RECOMMENDATIONS: 1. Continue to monitor LFTs closely. 2. Increase ambulation. 3. Continue current medical management. 4. Symptomatic and supportive care. 5. We will follow with you closely. Thank you for this consultation. MMODL / IJN: [id number] /
[2020-04-09 10:27] LABS: Albumin 3.3 g/dL (3.5-5.0); Calcium 8.9 mg/dL (8.4-10.2); Potassium 3.3 mmol/L (3.5-5.1); Total Bilirubin 2.7 mg/dL (0.2-1.3); Total Protein 7.1 g/dL (6.3-8.2)
[2020-04-09] MEDS: SODIUM CHLORIDE 0.9% 1,000 ML IV SCH (12:40)
--- NOTE | 2020-04-09 13:59 | XR ---
EXAMINATION TYPE: XR chest 1V DATE OF EXAM: 04/09/2020 COMPARISON: 04/06/2020 INDICATION: CHF TECHNIQUE: Single frontal view of the chest is obtained. FINDINGS: The heart size is normal. The pulmonary vasculature is normal. There is a small right pleural effusion. Lungs are otherwise clear. Findings have improved over the i nterval. Pacemaker overlies left chest. IMPRESSION: 1. Resolving small right pleural effusion
--- NOTE | 2020-04-09 14:59 | PN ---
PROGRESS NOTE Patient is seen for followup for acute kidney injury. Renal function is slowly worsening. Creatinine has increased to 2.36 from 1.6 on April 06 and it was as low as 1.08. The patient has not been eating much. He states he is voiding. The 24 hour urine output documented at about 1.7 L. No other complaints today. PHYSICAL EXAMINATION: This morning blood pressure was 104/58, heart rate 81 per minute, patient is afebrile. Examination of the heart S1, S2. Examination of the lungs, decreased breath sounds at bases. Abdomen is soft, nontender. Examination of lower extremities shows no evidence of edema. [employer] exam grossly intact. LAB: Show sodium 129, potassium 3.3, chloride 79, BUN 38, creatinine 2.36. Urine osmolality 305. Random urine sodium 108. ASSESSMENT: 1. Acute kidney injury, appears to be prerenal. The patient is not eating much. I will add IV fluids. Diuretics are on hold. Also component of contrast nephropathy and cardiorenal syndrome. 2. Acute on chronic systolic congestive heart failure, currently improved. 3. Cardiomyopathy, ejection fraction 25-30% with moderate to severe tricuspid regurgitation. 4. Hyponatremia. The patient did receive Samsca on April 07. His sodium is currently staying at 129-130. Rule out hypovolemia. Challenge with normal saline at 50 mL an hour. 5. Hypokalemia associated with diuresis. We will replace. 6. Elevated LFTs, most likely secondary to hypoperfusion. PLAN: Add saline at 50 mL an hour. Repeat sodium this evening and repeat labs in a.m. Monitor urine output. Continue with midodrine. MMODL / IJN: [id number] /
--- NOTE | 2020-04-09 17:42 | P.PN ---
Progress Note - Text Progress Note Date: 04/09/20 Chief Complaint: Abdominal pain History of presenting complaint: This is a pleasant 69-year-old patient of Dr. Cheatham. Chronic stable medical conditions include coronary artery disease, hyperlipidemia, multiple MIs in the past, coronary stent, peptic ulcer disease, ischemic cardiomyopathy, previous V. tach ablation, atrial fibrillation,. 2 weeks ago patient was admitted with CHF exacerbation. Cardiac catheterization [March 14] showed chronically occluded RCA with extensive [id number] collaterals. Also some focal obstructive lesion in the circumflex. Creatinine then was 1.16. Patient now presents with having nausea vomiting "a few days. Also having dif fuse abdominal pain. Appetite is rather poor. Has not had a bowel movement for 5 days. Shortness of breath. Denies any fever and chills. Occasional cough. Some edema. Has orthopnea. Admitted with suspected ischemic colitis, causing resultant hypotension, severe lactic acidosis ischemic hepatitis, abnormal regulation profile with a contribution from xarelto, pulmonary edema with acute CHF exacerbation. Patient was given vitamin K put on IV dobutamine, bronchodilators-admitted to ICU. Started on IV Zosyn. Patient denies been into fluid overload. Has been receiving IV diuretics. Moved out of the medical floor. Developed oral candidiasis. Put on Diflucan Today-. Has been out of bed. Eating about 25%. Keen to go home. Creatinine has gone up. Review of systems: Was done for constitutional, cardiovascular, GI, pulmonary. relevant finding as above Active Medications Albuterol/Ipratropium (Ipratropium-Albuterol 3 Ml Neb) 3 ml INHALATION RT-QID [facility] Last Admin: 04/09/20 15:58 Dose: 3 ml Documented by: Apixaban (Apixaban 5 Mg Tab) 5 mg PO BID [facility] Last Admin: 04/09/20 09:35 Dose: 5 mg Documented by: Benzocaine/Menthol (Benzocaine/Menthol Lozeng 1 Each Lozenge) 1 each MUCOUS MEM Q4HR PRN PRN Reason: Sore Throat Last Admin: 03/28/20 22:36 Dose: 1 each Documented by: Fluconazole (Fluconazole 100 Mg Tab) 100 mg PO DAILY [facility] Last Admin: 04/09/20 09:35 Dose: 100 mg Documented by: Sodium Chloride (Saline 0.9%) 1,000 mls @ 50 mls/hr IV .Q20H [facility] Last Admin: 04/09/20 12:40 Dose: 50 mls/hr Documented by: Metoprolol Succinate (Metoprolol Succinate (Er) 25 Mg Tab.Er.24h) 25 mg PO DAILY [facility] Last Admin: 04/09/20 09:35 Dose: 25 mg Documented by: Midodrine (Midodrine 5 Mg Tab) 10 mg PO AC-TID [facility] Last Admin: 04/09/20 12:40 Dose: 10 mg Documented by: Miscellaneous Information (Magnesium Replacement Protocol 1 Each Misc) 1 each MISCELLANE DAILY PRN; Protocol PRN Reason: Per Protocol Pantoprazole Sodium (Pantoprazole 40 Mg Tablet) 40 mg PO BID [facility] Last Admin: 04/09/20 09:35 Dose: 40 mg Documented by: Polyethylene Glycol (Polyethylene Glycol 3350 17 Gm Powd.Pack) 17 gm PO BID [facility] Last Admin: 04/09/20 09:35 Dose: 17 gm Documented by: Prochlorperazine Edisylate (Prochlorperazine Inj 10 Mg/2 Ml Vial) 10 mg IVP Q6H PRN PRN Reason: Nausea And Vomiting Last Admin: 04/05/20 09:01 Dose: 10 mg Documented by: Spironolactone (Spironolactone 25 Mg Tab) 12.5 mg PO DAILY [facility] Last Admin: 04/09/20 09:35 Dose: 12.5 mg Documented by: Past medical history to include: Coronary artery disease with stent, multiple MIs, hyperlipidemia, peptic ulcer disease, CHF EF 35-40%, ventricular tachycardia ablation, AICD placement, chronic atrial fibrillation, Social history: Lives alone. Smoking a pack a day closed to 59 years, takes about 6 pack a week. 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 Conjunctiva normal. HEENT: External appearance of nose and ears normal, oral cavity -white plaques.cleared Up NECK: JVD possibly raised; masses not palpable. HEART: Irregular heart sounds; edema present. LUNGS: Respiratory rate normal, decreased breath sounds. ABDOMEN: Soft, no tenderness, no guarding rigidity, liver spleen not palpable, no masses palpable. PSYCH: Alert and oriented x3; mood and affect better INVESTIGATIONS, reviewed in the clinical context: April 09: Sodium 129 potassium 3.3 bicarbonate 38 bun 38 creatinine 2.36 AST 76 ALT 243 April 08: Sodium 1:30 potassium 3.8 bun 35 creatinine 2.12 April 07: Sodium 128 potassium 3.7 creatinine 1.84 bicarbonate 40 April 06: White count 12 hemoglobin 12.8 platelets 226 sodium 129 potassium 3.7 bicarb 39 bun 31 and creatinine 1.66 AST 56 ALT 131 March 31: White count 12.4 hemoglobin 11 platelets 158 pro-time 17.3 PTT 39.7 potassium 3.6 creatinine 1.37 bilirubin 5.6 AST 459 ALT 582 March 30: White count 11.5 hemoglobin 11.2 ProTime 22.8 PTT 45.0 sodium 133 potassium 3.6 BUN 42 creatinine 2.47 AST 1180 ALT 902 albumin 2.6 March 29: White count 13.2 hemoglobin 11.2 platelets 215 INR 4.0 PTT 49.1 potassium 4.2 bun 56 creatinine 3.38AST 2488 ALT 1242 alpha-1 antitrypsin normal at 181 70+ been normal at 31.1 tumor marker AFP test 2.5 Acute hepatitis panel including hepatitis A IgM antibody, hepatitis B surface antigen, hepatitis B core IgM antibody, hepatitis C IgG antibody all nonreactive. In a screen negative March 28: White count 19.7 hemoglobin 10.7 platelets 254 ProTime 89.3 INR 9.1 PTT 55.2 sodium 131 potassium 5.1 bun 47 creatinine 3.37 calcium 6.3 bilirubin 53.6 AST 07/22/2006 ALT 1695 troponin I 0.086, 0.068 pro-calcitonin 1.96 White count 29.2 hemoglobin 12.2 platelets 327 ProTime greater than 10 Potassium 6 bicarbonate 17 bun 29 creatinine 2.58 total bilirubin 3.8 AST 7392 ALT 1842 Admission testing: White count 25.4 hemoglobin 13.6 platelets 384 Sodium 135 potassium 5.7 creatinine 1.61 lactic 10.4 total bilirubin 3.2 AST 1472 ALT 537 Coronavirus-P/Cr-not detected Computed tomography scan of the abdomen pelvis-moderate size bilateral pleural effusion and compression atelectasis, [facility] of the colon the right colon contracted gallbladder Ultrasound-contracted gallbladder EKG tracing personally reviewed by me-atrial fibrillation rate of 91 Chest x-ray film-pleural effusion atelectasis Previous testing: Hemoglobin 11.6 on March 14 Creatinine 1.16 on March 14 Assessment: -acute ischemic colitis given that the patient has got significant vascular disease, infective component cannot be ruled out-improving -Acute ischemic hepatitis, severe from CHF and hypotension- improving -Abnormal coagulation profile with a combination of patient poor oral intake and also being on an xarelto and also vitamin K received 3 doses of vitamin K. -AICD -Coronary artery disease with prior history of stents -Acute on chronic congestive heart failure exacerbation from systolic dysfunction EF 30-35%-better -Acute hypoxic respiratory failure from pulmonary edema on 2 L of nasal cannula- improving -Moderate tricuspid regurgitation -Hyperlipidemia -Persistent atrial fibrillation/flutter-rate controlled -Chronic nicotine dependence patient active cigarette smoker -Acute kidney injury likely ATN from cardiorenal syndrome, the possible contri bution from contrast-induced nephropathy from cardiac catheterization and IV contrast with computed tomography. Initially improved. Again worsening now from prerenal from diuretics. We have been held. -Bilateral pleural effusion from CHF with a prior history of thoracentesis -Metabolic acidosis multifactorial -Metabolic alkalosis from diuresis -Hyperkalemia from renal failure-improved -Troponin leak from acute kidney injury and hemodynamic instability -Hyponatremia-hyper Alexis make -Oral pharyngeal candidiasis-on Diflucan Plan: Diuretics are being held. Started on 50 mL of saline today. We will temporally also hold off Aldactone.
[2020-04-09] MEDS ORDERED: POTASSIUM CHLORIDE ER 20 MEQ TAB.ER PO STA (21:31)
[2020-04-10] MEDS: SODIUM CHLORIDE 0.9% 1,000 ML IV SCH ×3 (05:00→22:17)
[2020-04-10] MEDS: MIDODRINE 5 MG TAB PO SCH ×3 (06:37→17:23)
[2020-04-10 07:30] LABS: Potassium 4.2 mmol/L (3.5-5.1)
[2020-04-10] MEDS: IPRATROPIUM-ALBUTEROL 3 ML NEB INHALATION SCH ×4 (07:55→19:11)
[2020-04-10] MEDS: polyethylene glycoL 3350 17 GM POWD.PACK PO SCH ×2 (08:52→22:17)
[2020-04-10] MEDS: FLUCONAZOLE 100 MG TAB PO SCH (08:54)
[2020-04-10] MEDS: APIXABAN 5 MG TAB PO SCH ×2 (08:54→22:17)
[2020-04-10] MEDS: METOPROLOL SUCCINATE (ER) 25 MG TAB.ER.24H PO SCH (08:54)
[2020-04-10] MEDS: PANTOPRAZOLE 40 MG TABLET PO SCH ×2 (08:54→22:17)
--- NOTE | 2020-04-10 08:59 | P.PN ---
Subjective Progress Note Date: 04/10/20 70-year-old male admitted with a diagnosis of acute on chronic systolic heart failure, with ischemic cardiomyopathy, an ejection fraction of 30-35% and severe MR and TR. 04/10/2020, the patient's potassium level is at 4.2. Creatinine from yesterday was at 2.36. His diuretics are on hold with exception of Aldactone and this was also discontinued by the primary care team and I am agreeable to that.. He was on room air oxygen. He desaturated with activity. Based on that, the patient was placed back on 1.5 L.. No signs of any respiratory distress. His pulse ox is 98% on 1.5 L. His sodium level was lower. He was given a dose of Semsca, by nephrology few days back which improved his sodium. Follow-up sodium level is still pending for now. Is also on midodrine for blood pressure control. She is known to have ischemic cardiomyopathy with an ejection fraction of 30-35%. He has severe MR. He has severe TR. He had also atrial fibrillation. He has congestive hepatopathy. His lactic S2 are quite elevated and he wants of mesenteric ischemia time of admission which ultimately improved. He is continued to improve. AST is down to 46, ALT is down to 76, bilirubin is down to 2.7. Objective - Vital Signs Vital signs: Vital Signs Temp 98.2 F 04/09/20 19:49 Pulse 77 04/10/20 08:08 Resp 18 04/10/20 04:00 BP 81/51 04/10/20 04:00 Pulse Ox 98 04/10/20 04:00 Intake & Output 04/09/20 04/10/20 04/10/20 18:59 06:59 18:59 Intake Total 480 240 480 Output Total 675 300 250 Balance -195 -60 230 Weight 60.7 kg Intake: Oral 480 240 480 Output: Urine 675 300 250 Other: Voiding Method Urinal Urinal # Voids 1 # Bowel Movements 1 - Exam No acute distress, oriented 3. No conversational dyspnea for use of accessory muscles. HEENT examination is grossly unremarkable. Mucous membranes are moist. No oral lesions. Neck supple. Full range of motion. No adenopathy thyromegaly or neck vein distention. Cardiovascular examination reveals irregular rhythm and rate. S1-S2 normal. No S3 or S4. A soft systolic murmur is noted. Heart rate is 92 bpm. Lungs are showing some wheezing and occasional crackles and diminished breath sounds in the right lung base. Her sounds are equal bilaterally. No adve ntitious lung sounds including wheezes rhonchi or crackles. Abdomen soft bowel sounds are heard. No masses or tenderness. Extremities are intact. No cyanosis clubbing or edema. Skin is without rash or lesion. Neurologic examination is brief but nonfocal. - Labs CBC & Chem 7: 04/06/20 07:54 04/10/20 07:00 Labs: Abnormal Lab Results - Last 24 Hours (Table) 04/09/20 Range/Units 09:43 Sodium 129 L (137-145) mmol/L Potassium 3.3 L (3.5-5.1) mmol/L Chloride 79 L (98-107) mmol/L Carbon Dioxide 38 H (22-30) mmol/L BUN 38 H (9-20) mg/dL Creatinine 2.36 H (0.66-1.25) mg/dL Glucose 132 H (74-99) mg/dL Total Bilirubin 2.7 H (0.2-1.3) mg/dL ALT 76 H (4-49) U/L Alkaline Phosphatase 243 H (38-126) U/L Albumin 3.3 L (3.5-5.0) g/dL Assessment and Plan Plan: 1. Acute on chronic systolic heart failure, and the patient with ischemic cardiomyopathy and left ventricular dysfunction and ejection fraction of 30-35%. The patient is improving in terms of his fluid balance. There is still edema in lower extremities bilaterally. There is also a small to moderate-sized right-sided pleural effusion. He is on a combination of diuretics for now. She has become prerenal. The patient has been switched to oral Lasix. On e xamination he does have still persistent bilateral pleural effusions. The patient underwent a right-sided thoracentesis yesterday and 1.5 L of transudate fluid was aspirated from the right lung consistent with CHF. During the course of his treatment, the patient became prerenal due to diuresis and cardiorenal factors. His creatinine is up to 2.36. Nevertheless, his Chiu status improved and the patient's oxygenation is also improving currently is on 1.5 L of oxygen by nasal cannula at times while at rest he is on room air oxygen. He is doing well. Active issue for now as his acute kidney injury and the patient is currently off diuretics. A follow-up chest x-ray shows improvement in the pleural fluid and the size of the pleural fluid on the right is been reduced significantly. 2. Cardiogenic shock, resolved. 3. Chronic atrial fibrillation anticoagulated with Eliquis. 4. Congestive hepatopathy.The LFTs are improving. The patient's bilirubin also improving. Clinically is jaundiced. The bilirubin level is improving is down 5. Jaundice secondary to above and his bilirubin level is also improving. 6. Lactic acidosis related to hypoperfusion related to acute exacerbation of systolic CHF. 7. Rule out mesenteric ischemia and mesenteric angiogram was normal. 8. Cardiorenal syndrome. and is up to 1.8, essentially due to cardiorenal syndrome and diuretics. The patient is currently on a combination of Demadex and Aldactone 9. Coumadin induced coagulopathy. Currently is off anticoagulation. She tells that he was taken Xarelto on outpatient basis. 10. History of coronary artery disease with previous stenting. 11. Hyperlipidemia. 12. History of hypertension. 13. Prior history of myocardial infarction. 14. Status post pacemaker insertion. 15. Severe mitral regurgitation. 16 hyponatremia with a sodium level of 128. The patient was given a dose of Semsca milligrams, follow-up sodium level from yesterday was at 129 17 Plan: Monitor renal function and monitor the sodium level, monitor urine output and the patient is currently off diuretics Bilirubin is improving after he is on improving. Right-sided pleural effusion and also improved. Clinically he is doing much better. His respiratory status is much improved. Assessment RA oxygen with activity and at rest. His overall prognosis though, is guarded.
[2020-04-10 09:46] LABS: Calcium 8.6 mg/dL (8.4-10.2)
--- NOTE | 2020-04-10 12:08 | PN ---
PROGRESS NOTE DATE OF DICTATION: April 10, 2020 Patient is a 70-year-old white male admitted to hospital with exacerbation of congestive heart failure, severe lactic acidosis, hypoperfusion, ATN and ischemic hepatitis. The patient overall is getting better. He denies any symptoms today. He is able to ambulate well. Complains of some shortness of breath, but significantly improved overall in the last 2 weeks. PHYSICAL EXAMINATION: Vital signs are stable. Blood pressure 91/51, pulse 74. Temperature 98. HEENT examination unremarkable. Conjunctivae pink. Sclerae anicteric. Oral cavity no lesions. NECK: No JVD. No lymph node enlargement. CHEST: Clear to auscultation. HEART: Regular rate and rhythm. ABDOMEN: Soft. Bowel sounds are positive. No organomegaly. EXTREMITIES: No pedal edema. NEUROLOGIC: Alert and oriented x3. No focal deficits. LABS: From yesterday: T-bilirubin 2.7, AST 46, ALT 76, alkaline phosphatase 243, sodium 127, BUN 38, creatinine 2.38. IMPRESSION: 1. Acute ischemic hepatitis secondary to hypoperfusion, labs gradually improving. CT of the abdomen done at the time of admission to the hospital did show nodular appearing liver consistent with liver cirrhosis. 2. Congestive heart failure, gradually improving. 3. Hypertension. 4. Atrial fibrillation on Eliquis. RECOMMENDATIONS: 1. Continue with current symptomatic and supportive care. 2. Continue with anticoagulants. 3. In regard to the elevated liver enzymes and underlying possible chronic liver disease with liver cirrhosis, the patient was advised to follow up in office in 2 weeks following discharge from the hospital. Thank you for this consultation. We will sign off at this time. MMODL / IJN: [id number] /
[2020-04-10] MEDS ORDERED: SODIUM CHLORIDE TAB 1 GM TAB PO STA (13:47)
--- NOTE | 2020-04-10 14:44 | PN ---
PROGRESS NOTE Patient is seen for followup for acute kidney injury. Currently patient is lying in bed, he is comfortable. He was recently diuresed for volume overload. Serum creatinine had been slowly increasing and he was therefore started on gentle IV hydration. The patient also has hyponatremia and received a dose of Samsca two days ago. PHYSICAL EXAMINATION: On examination today, blood pressure was low at 86/57, heart rate 82 per minute, he is afebrile. Examination of the heart S1, S2. Examination of lungs, decreased breath sounds at bases. Abdomen is soft, nontender. Examination of lower extremities shows no evidence of edema. BUSINESS APPLICATIONS DEVELOPER exam is grossly intact. LAB: Show sodium 127, potassium 4.2, chloride 82, CO2 37, BUN 38, creatinine 2.38, albumin 3.3 and 3.4 g per dL. ASSESSMENT: 1. Acute kidney injury which had been improving. However, over the past 2-3 days, renal function worsen mostly secondary to diuresis. The patient was started on gentle IV hydration yesterday. His creatinine is about the same as yesterday and it has not worsened. Overall, patient states he is feeling better. No evidence of volume overload at this point. 2. Hyponatremia, at this time appears to be hypovolemic. Patient's blood pressure was low in the 80s. He has no edema and he is maintained on saline for hydration. I will add a sodium chloride tablet x1 and repeat serum sodium again tomorrow morning. 3. Elevated liver enzymes secondary to hypoperfusion. 4. Congestive heart failure acute on top of chronic, currently improved and compensated. 5. Cardiomyopathy, ejection fraction 25-30% with moderate to severe tricuspid regurgitation. 6. Hypokalemia associated with diuresis status post replacement. PLAN: Add one dose of sodium chloride tab. If there is no further improvement in the serum sodium I will repeat Samsca. Increase protein intake and avoid hypotension. Continue with the midodrine for now. Check cortisol level if not checked recently. MMODL / IJN: [id number] /
--- NOTE | 2020-04-10 18:52 | P.PN ---
Progress Note - Text Progress Note Date: 04/10/20 Chief Complaint: Abdominal pain History of presenting complaint: This is a pleasant 69-year-old patient of Dr. Cheatham. Chronic stable medical conditions include coronary artery disease, hyperlipidemia, multiple MIs in the past, coronary stent, peptic ulcer disease, ischemic cardiomyopathy, previous V. tach ablation, atrial fibrillation,. 2 weeks ago patient was admitted with CHF exacerbation. Cardiac catheterization [March 14] showed chronically occluded RCA with extensive [id number] collaterals. Also some focal obstructive lesion in the circumflex. Creatinine then was 1.16. Patient now presents with having nausea vomiting "a few days. Also having dif fuse abdominal pain. Appetite is rather poor. Has not had a bowel movement for 5 days. Shortness of breath. Denies any fever and chills. Occasional cough. Some edema. Has orthopnea. Admitted with suspected ischemic colitis, causing resultant hypotension, severe lactic acidosis ischemic hepatitis, abnormal regulation profile with a contribution from xarelto, pulmonary edema with acute CHF exacerbation. Patient was given vitamin K put on IV dobutamine, bronchodilators-admitted to ICU. Started on IV Zosyn. Patient denies been into fluid overload. Has been receiving IV diuretics. Moved out of the medical floor. Developed oral candidiasis. Put on Diflucan Today-. Appetite slightly better. No nausea vomiting. Review of systems: Was done for constitutional, cardiovascular, GI, pulmonary. relevant finding as above Active Medications Albuterol/Ipratropium (Ipratropium-Albuterol 3 Ml Neb) 3 ml INHALATION RT-QID [facility] Last Admin: 04/10/20 15:29 Dose: 3 ml Documented by: Apixaban (Apixaban 5 Mg Tab) 5 mg PO BID [facility] Last Admin: 04/10/20 08:54 Dose: 5 mg Documented by: Benzocaine/Menthol (Benzocaine/Menthol Lozeng 1 Each Lozenge) 1 each MUCOUS MEM Q4HR PRN PRN Reason: Sore Throat Last Admin: 03/28/20 22:36 Dose: 1 each Documented by: Fluconazole (Fluconazole 100 Mg Tab) 100 mg PO DAILY [facility] Last Admin: 04/10/20 08:54 Dose: 100 mg Documented by: Sodium Chloride (Saline 0.9%) 1,000 mls @ 50 mls/hr IV .Q20H [facility] Last Admin: 04/10/20 17:26 Dose: 50 mls/hr Documented by: Metoprolol Succinate (Metoprolol Succinate (Er) 25 Mg Tab.Er.24h) 25 mg PO DAILY [facility] Last Admin: 04/10/20 08:54 Dose: 25 mg Documented by: Midodrine (Midodrine 5 Mg Tab) 10 mg PO AC-TID [facility] Last Admin: 04/10/20 17:23 Dose: 10 mg Documented by: Miscellaneous Information (Magnesium Replacement Protocol 1 Each Misc) 1 each MISCELLANE DAILY PRN; Protocol PRN Reason: Per Protocol Pantoprazole Sodium (Pantoprazole 40 Mg Tablet) 40 mg PO BID [facility] Last Admin: 04/10/20 08:54 Dose: 40 mg Documented by: Polyethylene Glycol (Polyethylene Glycol 3350 17 Gm Powd.Pack) 17 gm PO BID [facility] Last Admin: 04/10/20 08:52 Dose: 17 gm Documented by: Prochlorperazine Edisylate (Prochlorperazine Inj 10 Mg/2 Ml Vial) 10 mg IVP Q6H PRN PRN Reason: Nausea And Vomiting Last Admin: 04/05/20 09:01 Dose: 10 mg Documented by: Past medical history to include: Coronary artery disease with stent, multiple MIs, hyperlipidemia, peptic ulcer disease, CHF EF 35-40%, ventricular tachycardia ablation, AICD placement, chronic atrial fibrillation, Social history: Lives alone. Smoking a pack a day closed to 59 years, takes about 6 pack a week. 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 Conjunctiva normal. HEENT: External appearance of nose and ears normal, oral cavity -white plaques.cleared Up NECK: JVD possibly raised; masses not palpable. HEART: Irregular heart sounds; edema present. LUNGS: Respiratory rate normal, decreased breath sounds. ABDOMEN: Soft, no tenderness, no guarding rigidity, liver spleen not palpable, no masses palpable. PSYCH: Alert and oriented x3; mood and affect better INVESTIGATIONS, reviewed in the clinical context: April 10: Sodium 127 potassium 4.2 creatinine 2.38 bicarbonate 37 April 09: Sodium 129 potassium 3.3 bicarbonate 38 bun 38 creatinine 2.36 AST 76 ALT 243 April 08: Sodium 1:30 potassium 3.8 bun 35 creatinine 2.12 April 07: Sodium 128 potassium 3.7 creatinine 1.84 bicarbonate 40 April 06: White count 12 hemoglobin 12.8 platelets 226 sodium 129 potassium 3.7 bicarb 39 bun 31 and creatinine 1.66 AST 56 ALT 131 March 31: White count 12.4 hemoglobin 11 platelets 158 pro-time 17.3 PTT 39.7 potassium 3.6 creatinine 1.37 bilirubin 5.6 AST 459 ALT 582 March 30: White count 11.5 hemoglobin 11.2 ProTime 22.8 PTT 45.0 sodium 133 potassium 3.6 BUN 42 creatinine 2.47 AST 1180 ALT 902 albumin 2.6 March 29: White count 13.2 hemoglobin 11.2 platelets 215 INR 4.0 PTT 49.1 potassium 4.2 bun 56 creatinine 3.38AST 2488 ALT 1242 alpha-1 antitrypsin normal at 181 70+ been normal at 31.1 tumor marker AFP test 2.5 Acute hepatitis panel including hepatitis A IgM antibody, hepatitis B surface antigen, hepatitis B core IgM antibody, hepatitis C IgG antibody all nonreactive. In a screen negative March 28: White count 19.7 hemoglobin 10.7 platelets 254 ProTime 89.3 INR 9.1 PTT 55.2 sodium 131 potassium 5.1 bun 47 creatinine 3.37 calcium 6.3 bilirubin 53.6 AST 07/22/2006 ALT 1695 troponin I 0.086, 0.068 pro-calcitonin 1.96 White count 29.2 hemoglobin 12.2 platelets 327 ProTime greater than 10 Potassium 6 bicarbonate 17 bun 29 creatinine 2.58 total bilirubin 3.8 AST 7392 ALT 1842 Admission testing: White count 25.4 hemoglobin 13.6 platelets 384 Sodium 135 potassium 5.7 creatinine 1.61 lactic 10.4 total bilirubin 3.2 AST 1472 ALT 537 Coronavirus-P/Cr-not detected Computed tomography scan of the abdomen pelvis-moderate size bilateral pleural effusion and compression atelectasis, [facility] of the colon the right colon contracted gallbladder Ultrasound-contracted gallbladder EKG tracing personally reviewed by me-atrial fibrillation rate of 91 Chest x-ray film-pleural effusion atelectasis Previous testing: Hemoglobin 11.6 on March 14 Creatinine 1.16 on March 14 Assessment: -acute ischemic colitis given that the patient has got significant vascular disease, infective component cannot be ruled out-improving -Acute ischemic hepatitis, severe from CHF and hypotension- improving -Abnormal coagulation profile with a combination of patient poor oral intake and also being on an xarelto and also vitamin K received 3 doses of vitamin K. -AICD -Coronary artery disease with prior history of stents -Acute on chronic congestive heart failure exacerbation from systolic dysfunction EF 30-35%-better -Acute hypoxic respiratory failure from pulmonary edema on 2 L of nasal cannula- improving -Moderate tricuspid regurgitation -Hyperlipidemia -Persistent atrial fibrillation/flutter-rate controlled -Chronic nicotine dependence patient active cigarette smoker -Acute kidney injury likely ATN from cardiorenal syndrome, the possible contribution from contrast-induced nephropathy from cardiac catheterization and IV contrast with computed tomography. Initially improved. Again worsening now from prerenal from diuretics. - have been held. -Bilateral pleural effusion from CHF with a prior history of thoracentesis -Metabolic acidosis multifactorial -Metabolic alkalosis from diuresis -Hyperkalemia from renal failure-improved -Troponin leak from acute kidney injury and hemodynamic instability -Hyponatremia-hypervolemic -Oral pharyngeal candidiasis-on Diflucan-improving Plan: Continue saline. Increase to 75 mL an hour. Discussed with patient. Repeat labs in the morning.
[2020-04-11] MEDS: MIDODRINE 5 MG TAB PO SCH ×3 (06:14→17:30)
[2020-04-11] MEDS: SODIUM CHLORIDE 0.9% 1,000 ML IV SCH (06:15)
[2020-04-11 07:24] LABS: Calcium 8.2 mg/dL (8.4-10.2); Potassium 3.8 mmol/L (3.5-5.1)
[2020-04-11] MEDS: IPRATROPIUM-ALBUTEROL 3 ML NEB INHALATION SCH ×4 (08:33→19:57)
[2020-04-11] MEDS: FLUCONAZOLE 100 MG TAB PO SCH (09:04)
[2020-04-11] MEDS: PANTOPRAZOLE 40 MG TABLET PO SCH ×2 (09:04→21:08)
[2020-04-11] MEDS: polyethylene glycoL 3350 17 GM POWD.PACK PO SCH ×2 (09:05→21:09)
[2020-04-11] MEDS: APIXABAN 5 MG TAB PO SCH ×2 (09:05→21:08)
[2020-04-11] MEDS: METOPROLOL SUCCINATE (ER) 25 MG TAB.ER.24H PO SCH (09:05)
[2020-04-11] MEDS ORDERED: TOLVAPTAN 15 MG 1/2 TABLET PO ONE (10:00)
--- NOTE | 2020-04-11 12:29 | PN ---
PROGRESS NOTE The patient is seen for acute kidney injury initially mostly cardiorenal and then prerenal associated with recent diuresis. The patient was started on IV fluids. His diuretics are on hold and renal function seems to have improved. He, however, has hyponatremia which was hypervolemic initially. He did receive a dose of Samsca and it has not improved with the normal saline. This morning, patient denies any significant complaints. He is not significantly short of breath. No complaints of swelling in the legs. No chest pains. PHYSICAL EXAMINATION: On examination today, blood pressure was 85/59, heart rate of 70 per minute. He is afebrile. Examination of the heart S1, S2. Examination of the lungs, bilateral breath sounds are heard. Decreased breath sounds at bases. Abdomen is soft, nontender. Examination of lower extremities shows no evidence of edema. SASH ASSEMBLER exam is grossly intact. LAB: Show sodium of 126, potassium 3.8, chloride 87, CO2 is 33, BUN 33, creatinine 2.07. Random cortisol was 21. ASSESSMENT: 1. Acute kidney injury, cardiorenal, acute tubular necrosis initially and then it had improved. However, serum creatinine worsened again, mostly secondary to diuresis and the diuretics were on held and patient was started on IV fluids. Creatinine has improved today. He is not eating much. I will continue with gentle IV hydration for now. 2. Hyponatremia, initially hypervolemic. The patient's sodium did not improve with normal saline. I will give him another dose of Samsca today. Cortisol level was not low. 3. Cardiomyopathy, ejection fraction of 25-30% with moderate to severe tricuspid regurgitation. 4. Hypokalemia secondary to diuresis status post replacement, now improved. 5. Elevated liver enzymes secondary to hypoperfusion. 6. Congestive heart failure, acute on top of chronic, mainly systolic, currently improved. PLAN: Continue with IV fluids. Add Samsca 50 mg today. Continue to encourage increased oral intake. The patient can most likely be discharged tomorrow with close monitoring for volume overload as outpatient. MMODL / IJN: [id number] /
--- NOTE | 2020-04-11 14:36 | P.PN ---
Subjective Progress Note Date: 04/11/20 Principal diagnosis: Acute on chronic systolic congestive heart failure and cardiogenic shock 70-year-old male admitted with a diagnosis of acute on chronic systolic heart failure, with ischemic cardiomyopathy, an ejection fraction of 30-35% and severe MR and TR. 04/10/2020, the patient's potassium level is at 4.2. Creatinine from yesterday was at 2.36. His diuretics are on hold with exception of Aldactone and this was also discontinued by the primary care team and I am agreeable to that.. He was on room air oxygen. He desaturated with activity. Based on that, the patient was placed back on 1.5 L.. No signs of any respiratory distress. His pulse ox is 98% on 1.5 L. His sodium level was lower. He was given a dose of Semsca, by nephrology few days back which improved his sodium. Follow-up sodium level is still pending for now. Is also on midodrine for blood pressure control. She is known to have ischemic cardiomyopathy with an ejection fraction of 30-35%. He has severe MR. He has severe TR. He had also atrial fibrillation. He has congestive hepatopathy. His lactic S2 are quite elevated and he wants of mesenteric ischemia time of admission which ultimately improved. He is continued to improve. AST is down to 46, ALT is down to 76, bilirubin is down to 2.7. Reevaluated today on 04/11/2020, patient is on the cardiac floor, he is presently on 1.5 L nasal cannula, and O2 sats is 97%. Blood pressure is 85/63 with a mean of 70, patient denies any shortness of breath, he just feels generally weak. Patient was initially admitted with ischemic colitis, hypotension, severe lactic acidosis, ischemic hepatitis, and what seems to be mostly cardiogenic shock type of presentation. Surprisingly, the patient did quite well over the last 3 weeks since admission, and he continues to do fairly well. However his prognosis remains extremely poor and guarded. Patient did require thoracentesis, and this was done by Dr. Batista. Today the patient is noted to have low sodium of 126, BUN is 33 creatinine is 2.07. Patient was receiving IV fluid at 100 mL per hour, and I cut it down to 25 mL per hour considering the patient's underlying cardiac status and the fact that he goes into failure easily with severe LV dysfunction. Chest x-ray from 2 days ago showed significant improvement in his pleural effusions and pulmonary edema Objective - Vital Signs Vital signs: Vital Signs Temp 97.2 F L 04/11/20 12:00 Pulse 81 04/11/20 12:00 Resp 18 04/11/20 12:00 BP 85/63 04/11/20 12:00 Pulse Ox 97 04/11/20 12:00 Intake & Output 04/10/20 04/11/20 04/11/20 18:59 06:59 18:59 Intake Total 960 200 Output Total 450 725 Balance 510 -725 200 Weight 61.6 kg 61.6 kg Intake: IV 200 Sodium Chloride 0.9% 1, 200 000 ml @ 25 mls/hr IV . Q24H [facility] Rx#:[id number] Oral 960 Output: Urine 450 725 Other: Voiding Method Urinal Urinal # Voids 1 # Bowel Movements 1 1 - Exam GENERAL EXAM: Alert, very pleasant, 70-year-old frail looking white male, on 1.5 L nasal cannula HEAD: Normocephalic/atraumatic. HEENT: PERRLA, EOMI, positive icterus , dry mucous membranes. CHEST: No chest wall deformity. Symmetrical expansion. 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 CVS: Irregular rate and rhythm, normal S1 and S2, no gallops, 2/6 systolic murmur thought the precordium. ABDOMEN: Soft,, nontender, no megaly, no rebound, no guarding EXTREMITIES: No clubbing, no edema, no cyanosis, 2+ pulses and upper and lower extremities. MUSCULOSKELETAL: Muscle strength and tone normal. SKIN: No rashes CENTRAL NERVOUS SYSTEM: Alert and oriented -3. No focal deficits, tone is normal in all 4 extremities. PSYCHIATRIC: Alert and oriented -3. Appropriate affect. Intact judgment and insight. - Labs CBC & Chem 7: 04/06/20 07:54 04/11/20 06:08 Labs: Abnormal Lab Results - Last 24 Hours (Table) 04/11/20 Range/Units 06:08 Sodium 126 L (137-145) mmol/L Chloride 87 L (98-107) mmol/L Carbon Dioxide 33 H (22-30) mmol/L BUN 33 H (9-20) mg/dL Creatinine 2.07 H (0.66-1.25) mg/dL Glucose 108 H (74-99) mg/dL Calcium 8.2 L (8.4-10.2) mg/dL Assessment and Plan Assessment: Impression: Acute on chronic systolic heart failure secondary to ischemic cardiomyopathy and severe LV dysfunction. Acute cardiogenic shock, resolved. Chronic atrial fibrillation remains on adequate. Acute congestive hepatopathy secondary to cardiogenic shock, resolved. Acute ischemic colitis, resolved. Acute kidney injury secondary to cardiorenal syndrome. Dyslipidemia. Benign essential hypertension. Coronary artery disease and previous myocardial infarction. Severe mitral regurgitation. Hyponatremia, being addressed by nephrology. Recommendation: Continue present supportive care measures. Continue cardiac meds as per cardiology. Continue to address his low sodium, and that being addressed by nephrology. There are no active pulmonary issues at this point, and a fusion he has presently is extremely small, does not require thoracentesis. We will sign off and see the patient on when necessary basis. Time with Patient: Less than 30
--- NOTE | 2020-04-11 18:31 | P.PN ---
Progress Note - Text Progress Note Date: 04/11/20 Chief Complaint: Abdominal pain History of presenting complaint: This is a pleasant 69-year-old patient of Dr. Cheatham. Chronic stable medical conditions include coronary artery disease, hyperlipidemia, multiple MIs in the past, coronary stent, peptic ulcer disease, ischemic cardiomyopathy, previous V. tach ablation, atrial fibrillation,. 2 weeks ago patient was admitted with CHF exacerbation. Cardiac catheterization [March 14] showed chronically occluded RCA with extensive [id number] collaterals. Also some focal obstructive lesion in the circumflex. Creatinine then was 1.16. Patient now presents with having nausea vomiting "a few days. Also having dif fuse abdominal pain. Appetite is rather poor. Has not had a bowel movement for 5 days. Shortness of breath. Denies any fever and chills. Occasional cough. Some edema. Has orthopnea. Admitted with suspected ischemic colitis, causing resultant hypotension, severe lactic acidosis ischemic hepatitis, abnormal regulation profile with a contribution from xarelto, pulmonary edema with acute CHF exacerbation. Patient was given vitamin K put on IV dobutamine, bronchodilators-admitted to ICU. Started on IV Zosyn. Patient denies been into fluid overload. Has been receiving IV diuretics. Moved out of the medical floor. Developed oral candidiasis. Put on Diflucan Today-. Patient likely hardly eating. Only drinking fluids. Driving sodium down. Review of systems: Was done for constitutional, cardiovascular, GI, pulmonary. relevant finding as above Active Medications Albuterol/Ipratropium (Ipratropium-Albuterol 3 Ml Neb) 3 ml INHALATION RT-QID [facility] Last Admin: 04/11/20 15:52 Dose: 3 ml Documented by: Apixaban (Apixaban 5 Mg Tab) 5 mg PO BID [facility] Last Admin: 04/11/20 09:05 Dose: 5 mg Documented by: Benzocaine/Menthol (Benzocaine/Menthol Lozeng 1 Each Lozenge) 1 each MUCOUS MEM Q4HR PRN PRN Reason: Sore Throat Last Admin: 03/28/20 22:36 Dose: 1 each Documented by: Fluconazole (Fluconazole 100 Mg Tab) 100 mg PO DAILY [facility] Last Admin: 04/11/20 09:04 Dose: 100 mg Documented by: Sodium Chloride (Saline 0.9%) 1,000 mls @ 25 mls/hr IV .Q24H [facility] Last Admin: 04/11/20 06:15 Dose: 75 mls/hr Documented by: Metoprolol Succinate (Metoprolol Succinate (Er) 25 Mg Tab.Er.24h) 25 mg PO DAILY [facility] Last Admin: 04/11/20 09:05 Dose: 25 mg Documented by: Midodrine (Midodrine 5 Mg Tab) 10 mg PO AC-TID [facility] Last Admin: 04/11/20 17:30 Dose: 10 mg Documented by: Miscellaneous Information (Magnesium Replacement Protocol 1 Each Misc) 1 each MISCELLANE DAILY PRN; Protocol PRN Reason: Per Protocol Pantoprazole Sodium (Pantoprazole 40 Mg Tablet) 40 mg PO BID [facility] Last Admin: 04/11/20 09:04 Dose: 40 mg Documented by: Polyethylene Glycol (Polyethylene Glycol 3350 17 Gm Powd.Pack) 17 gm PO BID [facility] Last Admin: 04/11/20 09:05 Dose: 17 gm Documented by: Past medical history to include: Coronary artery disease with stent, multiple MIs, hyperlipidemia, peptic ulcer disease, CHF EF 35-40%, ventricular tachycardia ablation, AICD placement, chronic atrial fibrillation, Social history: Lives alone. Smoking a pack a day closed to 59 years, takes about 6 pack a week. 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 Conjunctiva normal. HEENT: External appearance of nose and ears normal, oral cavity -white plaques.cleared Up NECK: JVD possibly raised; masses not palpable. HEART: Irregular heart sounds; edema present. LUNGS: Respiratory rate normal, decreased breath sounds. ABDOMEN: Soft, no tenderness, no guarding rigidity, liver spleen not palpable, no masses palpable. PSYCH: Alert and oriented x3; mood and affect better INVESTIGATIONS, reviewed in the clinical context: April 11: Sodium 126 potassium 3.8 creatinine 2.07 April 10: Sodium 127 potassium 4.2 creatinine 2.38 bicarbonate 37 April 09: Sodium 129 potassium 3.3 bicarbonate 38 bun 38 creatinine 2.36 AST 76 ALT 243 April 08: Sodium 1:30 potassium 3.8 bun 35 creatinine 2.12 April 07: Sodium 128 potassium 3.7 creatinine 1.84 bicarbonate 40 April 06: White count 12 hemoglobin 12.8 platelets 226 sodium 129 potassium 3.7 bicarb 39 bun 31 and creatinine 1.66 AST 56 ALT 131 March 31: White count 12.4 hemoglobin 11 platelets 158 pro-time 17.3 PTT 39.7 potassium 3.6 creatinine 1.37 bilirubin 5.6 AST 459 ALT 582 March 30: White count 11.5 hemoglobin 11.2 ProTime 22.8 PTT 45.0 sodium 133 potassium 3.6 BUN 42 creatinine 2.47 AST 1180 ALT 902 albumin 2.6 March 29: White count 13.2 hemoglobin 11.2 platelets 215 INR 4.0 PTT 49.1 potassium 4.2 bun 56 creatinine 3.38AST 2488 ALT 1242 alpha-1 antitrypsin normal at 181 70+ been normal at 31.1 tumor marker AFP test 2.5 Acute hepatitis panel including hepatitis A IgM antibody, hepatitis B surface antigen, hepatitis B core IgM antibody, hepatitis C IgG antibody all nonreactive. In a screen negative March 28: White count 19.7 hemoglobin 10.7 platelets 254 ProTime 89.3 INR 9.1 PTT 55.2 sodium 131 potassium 5.1 bun 47 creatinine 3.37 calcium 6.3 bilirubin 53.6 AST 07/22/2006 ALT 1695 troponin I 0.086, 0.068 pro-calcitonin 1.96 White count 29.2 hemoglobin 12.2 platelets 327 ProTime greater than 10 Potassium 6 bicarbonate 17 bun 29 creatinine 2.58 total bilirubin 3.8 AST 7392 ALT 1842 Admission testing: White count 25.4 hemoglobin 13.6 platelets 384 Sodium 135 potassium 5.7 creatinine 1.61 lactic 10.4 total bilirubin 3.2 AST 1472 ALT 537 Coronavirus-P/Cr-not detected Computed tomography scan of the abdomen pelvis-moderate size bilateral pleural effusion and compression atelectasis, Harpreet [place] of the colon the right colon contracted gallbladder Ultrasound-contracted gallbladder EKG tracing personally reviewed by me-atrial fibrillation rate of 91 Chest x-ray film-pleural effusion atelectasis Previous testing: Hemoglobin 11.6 on March 14 Creatinine 1.16 on March 14 Assessment: -acute ischemic colitis given that the patient has got significant vascular disease, infective component cannot be ruled out-improve -Acute ischemic hepatitis, severe from CHF and hypotension-improved -Abnormal coagulation profile with a combination of patient poor oral intake and also being on an xarelto and also vitamin K received 3 doses of vitamin K. -AICD -Coronary artery disease with prior history of stents -Acute on chronic congestive heart failure exacerbation from systolic dysfunction EF 30-35%-stable -Acute hypoxic respiratory failure from pulmonary edema on 2 L of nasal cannula- improving -Moderate tricuspid regurgitation -Hyperlipidemia -Persistent atrial fibrillation/flutter-rate controlled -Chronic nicotine dependence patient active cigarette smoker -Acute kidney injury likely ATN from cardiorenal syndrome, the possible contribution from contrast-induced nephropathy from cardiac catheterization and IV contrast with computed tomography. Initially improved. Again worsening now from prerenal from diuretics. - have been held. Started to improve slowly -Bilateral pleural effusion from CHF with a prior history of thoracentesis -Metabolic acidosis multifactorial -Metabolic alkalosis from diuresis -Hyperkalemia from renal failure-improved -Troponin leak from acute kidney injury and hemodynamic instability -Hyponatremia-hypervolemic -Oral pharyngeal candidiasis-on Diflucan-improving Plan: Had a lengthy talk with the patient. He tolerated that he must eat. He was given Samsca by nephrology. Also given some salt tablets. Encouraged to ambulate more. Follow labs.
[2020-04-12] MEDS: MIDODRINE 5 MG TAB PO SCH ×3 (06:49→17:42)
[2020-04-12 07:21] LABS: Calcium 8.7 mg/dL (8.4-10.2); Potassium 4.3 mmol/L (3.5-5.1); Total Bilirubin 2.1 mg/dL (0.2-1.3); Total Protein 6.7 g/dL (6.3-8.2)
[2020-04-12 07:43] LABS: Anisocytosis Slight; HCT 39.8 % (39.0-53.0); HGB 12.5 gm/dL (13.0-17.5); Hypochromasia Marked; MCH 26.3 pg (25.0-35.0); MCHC 31.3 g/dL (31.0-37.0); Mean Platelet Volume 8.8; Platelet Count 272 k/uL (150-450); Poikilocytosis Slight; RBC 4.74 m/uL (4.30-5.90); RDW 19.5 % (11.5-15.5); WBC 13.9 k/uL (3.8-10.6)
[2020-04-12] MEDS: IPRATROPIUM-ALBUTEROL 3 ML NEB INHALATION SCH ×3 (07:47→16:29)
[2020-04-12] MEDS: polyethylene glycoL 3350 17 GM POWD.PACK PO SCH ×2 (08:27→17:44)
[2020-04-12] MEDS: APIXABAN 5 MG TAB PO SCH ×2 (08:27→17:42)
[2020-04-12] MEDS: PANTOPRAZOLE 40 MG TABLET PO SCH ×2 (08:27→17:42)
[2020-04-12] MEDS: METOPROLOL SUCCINATE (ER) 25 MG TAB.ER.24H PO SCH (08:28)
[2020-04-12 08:39] VITALS: TEMP 97.8
[2020-04-12 09:07] LABS: Eosinophils # (M) 0.14 k/uL (0-0.7); Lymphocytes # (M) 2.78 k/uL (1.0-4.8); Monocytes # (M) 1.53 k/uL (0-1.0); Myelocytes # (M) 0.14 k/uL (0); Myelocytes % 1 %; Neutrophils # (M) 9.59 k/uL (1.3-7.7); Neutrophils % (M) 69 %; Nucleated Red Blood Cells 0 /100 WBC (0-0); Total Cells Counted 200
[2020-04-12 09:09] LABS: Tear Drop Cells Present
[2020-04-12] MEDS ORDERED: FUROSEMIDE 10 MG/ML 2 ML VIAL IV ONE (10:38)
[2020-04-12 11:17] VITALS: BP 112/80; RESP 16
--- NOTE | 2020-04-12 15:25 | PN ---
PROGRESS NOTE Patient is seen for followup for acute kidney injury and hyponatremia. Overall, he states he is feeling much better. He wants to go home. Renal function has improved. Serum sodium has improved as well to 130. The patient did receive a dose of Samsca yesterday. PHYSICAL EXAMINATION: On examination today, blood pressure is 112/80, heart rate 94 per minute. He is afebrile. EXAMINATION OF THE HEART: S1, S2. EXAMINATION OF THE LUNGS: Decreased breath sounds at bases. Abdomen is soft, nontender. Examination lower extremities shows no evidence of edema. BATON TWIRLER exam grossly intact. LABS: Labs show sodium 130, potassium 4.3, chloride 90. CO2 is 33, BUN 30, creatinine 1.7, hemoglobin 12.5 g/dL. ASSESSMENT: 1. Acute kidney injury, cardiorenal as well as most recently prerenal associated with overdiuresis. Diuretics were held and patient was maintained on IV fluids. Currently he is off IV fluids. His weight has gone up significantly. He denies any significant shortness of breath. 2. Cardiomyopathy, ejection fraction 25% to 30% with moderate to severe tricuspid regurgitation. 3. Recent acute systolic congestive heart failure exacerbation, now improved. 4. Hypokalemia secondary to diuresis, status post replacement. 5. Elevated liver enzymes secondary to hypoperfusion. 6. Hyponatremia, mostly euvolemic slightly hypervolemic over the last couple of days. Status post one dose of tolvaptan. Sodium has improved to 130. Continue off of IV fluids. I will give a dose of Lasix today as patient's weight has increased significantly. Cortisol level was not low. PLAN: IV Lasix x1 today. Continue off of IV fluids. The patient could be discharged from nephrology standpoint with Lasix 40 mg p.o. every other day and close followup as outpatient in one week's time with repeat labs to be done in 2-3 days post discharge. He is encouraged to increase oral intake. MMODL / IJN: [id number] /
[2020-04-12 16:41] VITALS: PULSE 73
--- NOTE | 2020-04-12 22:45 | P.DS ---
Providers Date of admission: 03/26/20 14:24 Expected date of discharge: 04/12/20 Attending physician: Vinicio Murillo Consults: 03/26/20 14:24 Consult Physician Urgent Consulting Provider: Guillermo Jean-Baptiste Consult Reason/Comments: Abdominal pain Do you want consulting provider notified?: Yes Consult Physician Urgent Consulting Provider: Randi Curry Consult Reason/Comments: GI bleed Do you want consulting provider notified?: Yes 03/27/20 09:28 Consult Physician Urgent Consulting Provider: Hira Benavidez Consult Reason/Comments: Kidney injury Do you want consulting provider notified?: Yes 03/27/20 09:35 Consult Physician Routine Consulting Provider: Naila Beaver Consult Reason/Comments: Shortness of breath Do you want consulting provider notified?: Yes 03/27/20 12:14 Consult Physician Routine Consulting Provider: Ki Buenrostro Consult Reason/Comments: poss DIC Do you want consulting provider notified?: Yes Primary care physician: Lenard Cheatham [facility] Course: Chief Complaint: Abdominal pain History of presenting complaint: This is a pleasant 69-year-old patient of Dr. Cheatham. Chronic stable medical conditions include coronary artery disease, hyperlipidemia, multiple MIs in the past, coronary stent, peptic ulcer disease, ischemic cardiomyopathy, previous V. tach ablation, atrial fibrillation,. 2 weeks ago patient was admitted with CHF exacerbation. Cardiac catheterization [March 14] showed chronically occluded RCA with extensive nykl-vt-[id number] collaterals. Also some focal obstructive lesion in the circumflex. Creatinine then was 1.16. Patient now presents with having nausea vomiting "a few days. Also having diffuse abdominal pain. Appetite is rather poor. Has not had a bowel movement for 5 days. Shortness of breath. Denies any fever and chills. Occasional cough. Some edema. Has orthopnea. Admitted with suspected ischemic colitis, causing resultant hypotension, severe lactic acidosis ischemic hepatitis, abnormal regulation profile with a contribution from xarelto, pulmonary edema with acute CHF exacerbation. Patient was given vitamin K put on IV dobutamine, bronchodilators-admitted to ICU. Star jennifer on IV Zosyn. Patient denies been into fluid overload. Has been receiving IV diuretics. Moved out of the medical floor. Developed oral candidiasis. Put on Diflucan. Responded Today-. Patient hepatitis finally picked up. Walking well with a walker. Breathing stable. Cleared by nephrology. Pulse ox doing good on room air. 2011. 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 jean-baptiste-general surgery Dr. Dai Benavidez and partners from nephrology Dr. Beaver and partners from pulmonary Dr. Buenrostro hematology Past medical history to include: Coronary artery disease with stent, multiple MIs, hyperlipidemia, peptic ulcer disease, CHF EF 35-40%, ventricular tachycardia ablation, AICD placement, chronic atrial fibrillation, Social history: Lives alone. Smoking a pack a day closed to 59 years, takes about 6 pack a week. 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 Conjunctiva normal. HEENT: External appearance of nose and ears normal, oral cavity -white plaques.cleared Up NECK: JVD possibly raised; masses not palpable. HEART: Irregular heart sounds; decreased edema LUNGS: Respiratory rate normal, decreased breath sounds. ABDOMEN: Soft, no tenderness, no guarding rigidity, liver spleen not palpable, no masses palpable. PSYCH: Alert and oriented x3; mood and affect better INVESTIGATIONS, reviewed in the clinical context: April 12: White count 13.9 hemoglobin 12.5 potassium 4.3 creatinine 1.70 April 11: Sodium 126 potassium 3.8 creatinine 2.07 April 10: Sodium 127 potassium 4.2 creatinine 2.38 bicarbonate 37 April 09: Sodium 129 potassium 3.3 bicarbonate 38 bun 38 creatinine 2.36 AST 76 ALT 243 April 08: Sodium 1:30 potassium 3.8 bun 35 creatinine 2.12 April 07: Sodium 128 potassium 3.7 creatinine 1.84 bicarbonate 40 Pleural fluid-negative for malignant cells April 06: White count 12 hemoglobin 12.8 platelets 226 sodium 129 potassium 3.7 bicarb 39 bun 31 and creatinine 1.66 AST 56 ALT 131 March 31: White count 12.4 hemoglobin 11 platelets 158 pro-time 17.3 PTT 39.7 potassium 3.6 creatinine 1.37 bilirubin 5.6 AST 459 ALT 582 March 30: White count 11.5 hemoglobin 11.2 ProTime 22.8 PTT 45.0 sodium 133 potassium 3.6 BUN 42 creatinine 2.47 AST 1180 ALT 902 albumin 2.6 March 29: White count 13.2 hemoglobin 11.2 platelets 215 INR 4.0 PTT 49.1 potassium 4.2 bun 56 creatinine 3.38AST 2488 ALT 1242 alpha-1 antitrypsin normal at 181 70+ been normal at 31.1 tumor marker AFP test 2.5 Acute hepatitis panel including hepatitis A IgM antibody, hepatitis B surface antigen, hepatitis B core IgM antibody, hepatitis C IgG antibody all nonreactive. In a screen negative March 28: White count 19.7 hemoglobin 10.7 platelets 254 ProTime 89.3 INR 9.1 PTT 55.2 sodium 131 potassium 5.1 bun 47 creatinine 3.37 calcium 6.3 bilirubin 53.6 AST 07/22/2006 ALT 1695 troponin I 0.086, 0.068 pro-calcitonin 1.96 White count 29.2 hemoglobin 12.2 platelets 327 ProTime greater than 10 Potassium 6 bicarbonate 17 bun 29 creatinine 2.58 total bilirubin 3.8 AST 7392 ALT 1842 Admission testing: White count 25.4 hemoglobin 13.6 platelets 384 Sodium 135 potassium 5.7 creatinine 1.61 lactic 10.4 total bilirubin 3.2 AST 1472 ALT 537 Coronavirus-P/Cr-not detected Computed tomography scan of the abdomen pelvis-moderate size bilateral pleural effusion and compression atelectasis, wall thickening of the colon but he the right colon. SMA and celiac axis decreased in size-sensitive staph extensive vascular disease. Ultrasound-contracted gallbladder EKG tracing personally reviewed by me-atrial fibrillation rate of 91 Chest x-ray film-pleural effusion atelectasis Previous testing: Hemoglobin 11.6 on March 14 Creatinine 1.16 on March 14 Assessment: -acute ischemic colitis given that the patient has significant vascular disease, infective component cannot be ruled out-improved -Acute ischemic hepatitis, severe from CHF and hypotension-improved -Abnormal coagulation profile with a combination of patient poor oral intake and also being on an xarelto and also vitamin K received 3 doses of vitamin K. -AICD -Coronary artery disease with prior history of stents -Acute on chronic congestive heart failure exacerbation from systolic dysfunction EF 30-35%-stable -Acute hypoxic respiratory failure from pulmonary edema-improved -Moderate tricuspid regurgitation -Hyperlipidemia -Persistent atrial fibrillation/flutter-rate controlled -Chronic nicotine dependence patient active cigarette smoker -Acute kidney injury likely ATN from cardiorenal syndrome, the possible contribution from contrast-induced nephropathy from cardiac catheterization and IV contrast with computed tomography. Initially improved. Again worsening now from prerenal from diuretics. - have been held. Started to improve slowly -Bilateral pleural effusion from CHF with - thoracentesis -Metabolic acidosis multifactorial -Metabolic alkalosis from diuresis -Hyperkalemia from renal failure-improved -Troponin leak from acute kidney injury and hemodynamic instability -Hyponatremia-hypervolemic -Oral pharyngeal candidiasis-on Diflucan-improving Disposition: Home Health Concerns: Lasix 40mg every other day rec by Dr. Combs - cleared by nephrology Patient Condition at Discharge: Stable Plan - Discharge Summary Discharge Rx Participant: Yes New Discharge Prescriptions: New Apixaban [Eliquis] 5 mg PO BID #60 tab Midodrine [ProAmatine] 5 mg PO AC-TID #90 tab Continue Metoprolol Succinate (ER) [Toprol XL] 25 mg PO DAILY Changed Furosemide [Lasix] 40 mg PO Q48H #30 tab Omeprazole [PriLOSEC] 40 mg PO BID #60 cap Discontinued Enalapril Maleate 2.5 mg PO HS Atorvastatin [Lipitor] 80 mg PO HS Spironolactone [Aldactone] 50 mg PO DAILY Amiodarone [Cordarone] 200 mg PO DAILY Aspirin 81 mg PO DAILY #30 chew Discharge Medication List Metoprolol Succinate (ER) [Toprol XL] 25 mg PO DAILY 03/11/20 [History] Apixaban [Eliquis] 5 mg PO BID #60 tab 04/05/20 [Rx] Furosemide [Lasix] 40 mg PO Q48H #30 tab 04/12/20 [Rx] Midodrine [ProAmatine] 5 mg PO AC-TID #90 tab 04/12/20 [Rx] Omeprazole [PriLOSEC] 40 mg PO BID #60 cap 04/12/20 [Rx] Follow up Appointment(s)/Referral(s): Naila Beaver MD [STAFF PHYSICIAN] - 05/16/20 9:30 am (SATURDAY) Ki Buenrostro MD [STAFF PHYSICIAN] - 1 Week (Senior Housekeeper- office left message with your information to return call with a follow up appointment. ) Erlinda Combs MD [STAFF PHYSICIAN] - 04/18/20 10:10 am (SATURDAY ) Lenard Cehatham MD [Primary Care Provider] - 04/18/20 3:45 pm Randi Curry MD [STAFF PHYSICIAN] - 04/19/20 9:30 am (SATURDAY WITH KENDRA MELENDREZ) [facility], [NON-STAFF] - Patient Instructions/Handouts: Acute Kidney Injury (DC), Hyponatremia (DC), Safe Use of Anticoagulants (DC), Ischemic Colitis (DC) Discharge Disposition: HOME SELF-CARE
--- NOTE | 2020-04-13 12:31 | CDI ---
Documentation Clarification Form Date: 04/13/2020 12:11:00 PM From: Stephany Real Phone: If you have a question about this query, please contact Nella Lindsey, [employer] at [phone] between 8am and 5pm. Admit Date: 03/26/2020 02:24:00 PM Patient Name: Gerber Obrien Visit Number: [id number] Discharge Date: 04/12/2020 05:45:00 PM ATTENTION: The Clinical Documentation Specialists (CDI) and [facility] Coding Staff appreciate your assistance in clarifying documentation. Please respond to the clarification below the line at the bottom and electronically sign. The CDI & [facility] Coding staff will review the response and follow-up if needed. Please note: Queries are made part of the Legal Health Record. If you have any questions, please contact the author of this message via ITS. Dr. Vinicio Murillo Per pulmonary PN's 03/28 - 04/08 "Predominantly appears likely septic shock with increased WBC count and lactic acidosis. "Patient appears to be improving from his shock which appears mainly related to sepsis." Sepsis diagnosis not carried through your notes. Please clarify if patient had septic shock or was this ruled out. History/Risk Factors: ischemic colitis, hepatitis, ATN, lactic acidosis, liver failure, hypotension, respiratory failure WBC 25.4 Lactic acid: 10.4 - 12.6 Blood cultures: No growth Vitals signs on admission: 98.6 F, 50 bpm, 18, 116/83 95 RA Treatment: Broad spectrum antibiotics Antibiotics: IV Zosyn IV bicarbonate for acidosis In your professional opinion, please clarify if these findings signify one of the following conditions, whether the condition is POA, and cause, if known: Condition Sepsis ruled out SIRS, without underlying infectious process Sepsis Severe Sepsis Septic Shock Other, please specify Unable to determine Present on Admission Yes No SIRS Criteria (2 or more of the following may indicate SIRS): -Temperature < 96.8F (36C) or > 101.0F (38.3C) -Heart Rate > 90 bpm -Respiratory Rate > 20 breaths/min or PaCO2 < 32 mmHg -White Blood Cell Count > 12,000 or < 4,000 cells/mm3 or > 10% bands -Lactate >2.0 mmol/L (>4.0 is equivalent to septic shock) Possible, septic shock, POA MTD
== END 2020-04-12 17:45 | disposition home or self-care (01) | DRG 871 ==
LOC: EC 10:58 → 4SSUR 14:24 → 3SCARD 15:15 → 2SICU 03-27 15:11 → 3SCARD 03-30 18:46
PROVIDERS: ADMIT Hospitalist; ATTEND Hospitalist
DX: A41.9 Sepsis, unspecified organism (principal); I50.23 Acute on chronic systolic (congestive) heart failure; J96.01 Acute respiratory failure with hypoxia; K55.039 Acute (reversible) ischemia of large intestine, extent unspecified; K72.00 Acute and subacute hepatic failure without coma; N17.0 Acute kidney failure with tubular necrosis; R57.0 Cardiogenic shock; R65.21 Severe sepsis with septic shock; B37.0 Candidal stomatitis; D68.4 Acquired coagulation factor deficiency; E87.1 Hypo-osmolality and hyponatremia; E87.4 Mixed disorder of acid-base balance; I13.0 Hypertensive heart and chronic kidney disease with heart failure and stage 1 through stage 4 chronic kidney disease, or unspecified chronic kidney disease; I48.19 Other persistent atrial fibrillation; I48.92 Unspecified atrial flutter; J91.8 Pleural effusion in other conditions classified elsewhere; J98.11 Atelectasis; Z99.81 Dependence on supplemental oxygen; Z20.822 Contact with and (suspected) exposure to COVID-19; K76.1 Chronic passive congestion of liver; K70.11 Alcoholic hepatitis with ascites; E78.00 Pure hypercholesterolemia, unspecified; E78.5 Hyperlipidemia, unspecified; E87.5 Hyperkalemia; E87.6 Hypokalemia; Z87.891 Personal history of nicotine dependence; Z60.2 Problems related to living alone; D64.9 Anemia, unspecified; I08.1 Rheumatic disorders of both mitral and tricuspid valves; I25.10 Atherosclerotic heart disease of native coronary artery without angina pectoris; I25.2 Old myocardial infarction; I25.5 Ischemic cardiomyopathy; I44.7 Left bundle-branch block, unspecified; J44.9 Chronic obstructive pulmonary disease, unspecified; Z87.11 Personal history of peptic ulcer disease; N14.1 Nephropathy induced by other drugs, medicaments and biological substances; N18.9 Chronic kidney disease, unspecified; R04.0 Epistaxis; R13.10 Dysphagia, unspecified; T45.515A Adverse effect of anticoagulants, initial encounter; T50.2X5A Adverse effect of carbonic-anhydrase inhibitors, benzothiadiazides and other diuretics, initial encounter; T50.8X5A Adverse effect of diagnostic agents, initial encounter; Z79.01 Long term (current) use of anticoagulants; Z79.82 Long term (current) use of aspirin; Z79.899 Other long term (current) drug therapy; Z82.49 Family history of ischemic heart disease and other diseases of the circulatory system; Z86.79 Personal history of other diseases of the circulatory system; R74.01 Elevation of levels of liver transaminase levels; Z95.5 Presence of coronary angioplasty implant and graft; Z95.810 Presence of automatic (implantable) cardiac defibrillator; Z86.010 Personal history of colon polyps
CPT/HCPCS: 36245; 36415; 36600; 71045; 71046; 74177; 74230; 75726; 76604; 76705; 76937; 80048; 80053; 80074; 80076; 81001; 82103; 82105; 82150; 82247; 82390; 82533; 82805; 83516; 83540; 83550; 83605; 83615; 83690; 83735; 83930; 83935; 84075; 84132; 84145; 84157; 84165; 84295; 84300; 84443; 84450; 84460; 84484; 85025; 85027; 85384; 85610; 85730; 86038; 86376; 87040; 87635; 88108; 88305; 89050; 93005; 93308; 94640; 94760; 96361; 96374; 96375; 99291

== ENCOUNTER 2020-04-17 10:20 | Inpatient (IN) | payer MEDICARE ==
[2020-04-17] MEDS ORDERED: NITROGLYCERIN SL TABS 0.4 MG TAB SUBLINGUAL STA (10:44)
[2020-04-17] MEDS ORDERED: ASPIRIN 81 MG PO STA (10:44)
--- NOTE | 2020-04-17 10:53 | ED ---
Chest Pain HPI <Ruddy Hernandez - Last Filed: 04/17/20 11:57> - General Source: patient Mode of arrival: ambulatory Limitations: no limitations <Millicent Tony - Last Filed: 04/17/20 12:01> - General Chief Complaint: Chest Pain Stated Complaint: chest pain Time Seen by Provider: 04/17/20 10:36 - History of Present Illness Initial Comments: Patient is a 70-year-old male with history of A. fib on eliquis, AICD, multiple MIs, presenting to emergency Department with complaints of chest pain that star jennifer approximately 10:30 last night. Patient describes it as sharp, consistent and in the middle of his chest, also at his lower sternum. Patient denies any falls or trauma. He states he had a hard time sleeping secondary to the pain. He does admit to being mildly short of breath secondary to sharp pain. Denies any fever or chills, no nausea or vomiting. Patient was discharged from this hospital about 5 days ago for pulmonary edema, ascites. Patient states she has been doing well, since then. Patient states he sat down to go to bed last night when the pain started. Patient has no further complaints at this time. Upon arrival to the ER, he is a tachycardia at 102, blood pressure is 101/54, rest of vitals are normal. (Millicent Tony) - Related Data Home Medications Medication Instructions Recorded Confirmed Metoprolol Succinate (ER) [Toprol 25 mg PO DAILY 03/11/20 04/17/20 XL] Previous Rx's Medication Instructions Recorded Apixaban [Eliquis] 5 mg PO BID #60 tab 04/05/20 Furosemide [Lasix] 40 mg PO Q48H #30 tab 04/12/20 Midodrine [ProAmatine] 5 mg PO AC-TID #90 tab 04/12/20 Omeprazole [PriLOSEC] 40 mg PO BID #60 cap 04/12/20 Allergies Allergy/AdvReac Type Severity Reaction Status Date / Time No Known Allergies Allergy Verified 04/17/20 11:24 Review of Systems ROS Other: All systems not noted in ROS Statement are negative. <Ruddy Hernandez - Last Filed: 04/17/20 11:57> ROS Other: All systems not noted in ROS Statement are negative. <Millicent Tony - Last Filed: 04/17/20 12:01> ROS Statement: Those systems with pertinent positive or pertinent negative responses have been documented in the HPI. EKG Findings - EKG Comments: EKG Findings:: Wide QRS tachycardia with frequent PVCs, left bundle branch block, ST changes. Compared to previous EKG in 03/26/2020. Ventricular rate 128, QRS duration 170, QT 434. <Millicent Tony - Last Filed: 04/17/20 12:01> Past Medical History Past Medical History: Atrial Fibrillation, Coronary Artery Disease (CAD), Hyperlipidemia, Hypertension, Myocardial Infarction ([place]), Pneumonia Additional Past Medical History / Comment(s): X3 WI'S, ULCER YEARS AGO, bradycardia Last Myocardial Infarction Date:: 2004 History of Any Multi-Drug Resistant Organisms: None Reported Past Surgical History: AICD, Cardiac Ablation, Heart Catheterization With Stent, Orthopedic Surgery, Pacemaker Additional Past Surgical History / Comment(s): CARDIOVERSION, HEART STENTS X7, cardiac ablation x 2 in the past and again om 12-05-15, rt wrist surgery after injury Past Anesthesia/Blood Transfusion Reactions: No Reported Reaction Additional Past Anesthesia/Blood Transfusion Reaction / Comment(s): NEVER HAS HAD GENERAL ANESTHESIA Date of Last Stent Placement:: 2004 Type of Cardiac Device: AICD Device Placement Date:: 2015 Past Psychological History: No Psychological Hx Reported Smoking Status: Former smoker Past Alcohol Use History: None Reported Past Drug Use History: None Reported - Past Family History Father Additional Family Medical History / Comment(s): DAD HAD PACER BUT NO OTHER HX KNOWN Mother Family Medical History: No Reported History Additional Family Medical History / Comment(s): pt stated does'nt know medical hx on parents. <Millicent Tony - Last Filed: 04/17/20 12:01> General Exam Limitations: no limitations <Millicent Tony - Last Filed: 04/17/20 12:01> - General Exam Comments Initial Comments: GENERAL: Patient is well-developed and well-nourished. Patient is nontoxic and in mild distress. HEAD: Atraumatic, normocephalic. EYES: Pupils equal round and reactive to light, extraocular movements intact, sclera anicteric, conjunctiva are normal. Eyelids were unremarkable. ENT: TMs normal, nares patent, oropharynx clear without exudates. Moist mucous membranes. NECK: Normal range of motion, supple without lymphadenopathy or JVD. LUNGS: Unlabored respirations. Breath sounds clear to auscultation bilaterally and equal. No wheezes rales or rhonchi. HEART: Regular rate and rhythm without murmurs, rubs or gallops. ABDOMEN: Soft, nontender, normoactive bowel sounds. No guarding, no rebound. No masses appreciated. : Deferred MUSCULOSKELETAL: Normal extremities with adequate strength and normal range of motion, no pitting or edema. No clubbing or cyanosis. There is some mild reproducible discomfort in the lower sternum and epigastric area. NEUROLOGICAL: Patient is alert and oriented x 3. Motor and sensory are also intact. Cranial nerves II through XII grossly intact. Symmetrical smile. Normal speech, normal gait. PSYCH: Normal mood, normal affect. SKIN: Warm, Dry, normal turgor, no rashes or lesions noted. (Millicent Tony) Course <Ruddy Hernandez - Last Filed: 04/17/20 11:57> Vital Signs 04/17/20 04/17/20 04/17/20 10:26 10:34 11:00 Temperature 97.7 F Pulse Rate 102 H 97 Respiratory 22 23 Rate Blood Pressure 101/54 109/74 O2 Sat by Pulse 98 Oximetry 04/17/20 11:30 Temperature Pulse Rate 89 Respiratory 16 Rate Blood Pressure 112/78 O2 Sat by Pulse 95 Oximetry - Reevaluation(s) Reevaluation #1: 04/17/20 11:58 PG supervision: I did personally do a [id number] evaluation the patient. He did present with complaints of lower midsternal chest pain is started last evening. He states it was achy in nature. He denied [place] exam a complaints of shortness of breath he was recently hospitalized for treatment of CHF pleural fluid collections. Patient did get pain relief after aspirin and nitroglycerin were given. EKG showed evidence of a left bundle-branch block no definitive change from previous one. Initial troponin is negative. He does have evidence of a right pleural effusion which appears be reaccumulating in addition to elevated BNP. Patient will be admitted for inpatient evaluation and treatment. Patient be admitted to the [facility] (Ruddy Hernandez) Chest Pain [facility] <Millicent Tony - Last Filed: 04/17/20 12:01> - [facility] Patient is 70-year-old male presenting with chest pain after 10:30 last night. He does have extensive cardiac history, AICD. He tachycardia upon arrival, we did him a nitro with improvement in his symptoms. His EKG shows tachycardia, left bundle branch block which he has had. Shows slight leukocytosis of 15, rest of labs are at his baseline, initial troponin is negative, BNP is 10,000. Rapid Covid is not detected. Chest x-ray shows progression in the patient's right pleural effusion. Patient will be admitted for serial troponins, cardiac consult. Patient accepted by Dr. Giordano. Case discussed with Dr. Hernandez. (Millicent Tony) Disposition <Ruddy Hernandez - Last Filed: 04/17/20 11:57> Decision Date: 04/17/20 Decision Time: 12:01 <Millicent Tony - Last Filed: 04/17/20 12:01> Clinical Impression: Chest pain Disposition: ADMITTED IP TO THIS [facility] Condition: Stable Referrals: Lenard Cheatham MD [Primary Care Provider] - 1-2 days
[2020-04-17 11:07] LABS: Anisocytosis Moderate; Basophils # (A) 0.2 k/uL (0-0.2); Basophils % (A) 1 %; Eosinophils # (A) 0.1 k/uL (0-0.7); Eosinophils % (A) 1 %; HCT 40.8 % (39.0-53.0); HGB 13.5 gm/dL (13.0-17.5); Hypochromasia Slight; Lymphocytes # (A) 2.4 k/uL (1.0-4.8); Lymphocytes % (A) 16 %; MCH 27.3 pg (25.0-35.0); MCHC 33.1 g/dL (31.0-37.0); MCV 82.6 fL (80.0-100.0); Mean Platelet Volume 8.2; Microcytosis Slight; Monocytes # (A) 1.2 k/uL (0-1.0); Monocytes % (A) 8 %; Neutrophils # (A) 10.7 k/uL (1.3-7.7); Neutrophils % (A) 71 %; Platelet Count 289 k/uL (150-450); Poikilocytosis Slight; RBC 4.94 m/uL (4.30-5.90); RDW 20.4 % (11.5-15.5)
--- NOTE | 2020-04-17 11:09 | XR ---
EXAMINATION TYPE: XR chest 2V DATE OF EXAM: 04/17/2020 COMPARISON: Chest x-ray 04/09/2020 HISTORY: Chest pain TECHNIQUE: Frontal and lateral views of the chest are obtained. FINDINGS: There is been some progression of the pleural fluid at the right lung base, the right jun diaphragm is now obscured. Defibrillator show stable appearance. No other significant interval change . IMPRESSION: Progression in patient's right pleural effusion, correlate to exclude pneumonia
[2020-04-17 11:11] LABS: Albumin 3.5 g/dL (3.5-5.0); Calcium 8.8 mg/dL (8.4-10.2); Magnesium 1.7 mg/dL (1.6-2.3); Potassium 3.7 mmol/L (3.5-5.1); Total Bilirubin 1.8 mg/dL (0.2-1.3); Total Protein 7.7 g/dL (6.3-8.2)
[2020-04-17 11:23] LABS: INR 1.1 (<1.2); Partial Thromboplastin Time 26.6 sec (22.0-30.0)
[2020-04-17] MEDS ORDERED: NITROGLYCERIN SL TABS 0.4 MG TAB SUBLINGUAL PRN (12:01)
--- NOTE | 2020-04-17 12:44 | P.HPIM ---
History of Present Illness H&P Date: 04/17/20 Chief Complaint: Chest pain This is a 70-year-old male with past medical history noted below significant for severe coronary artery disease with multiple stent placement in the past who presented to the emergency room with chest pain. Patient was discharged from the hospital couple of days ago after a prolonged hospitalization for systolic heart failure exacerbation. Patient said last night prior to going to bed he started having severe chest pain in the middle of his chest. He described the pain as sharp and 10 out of 10 in severity. This was not associated with s hortness of breath or palpitation. No diaphoresis. Patient said that he went to sleep that kept waking up with chest pain throughout the night. He took 2 doses of nitroglycerin an hour apart with minimal relief. This morning he decided to come to the hospital for further evaluation. He is currently chest pain-free. Twelve-lead EKG in the emergency room showed no acute ischemic changes though it was hard to interpret with frequent PVCs. Initial troponin is negative. Patient will be placed in observation for cardiology evaluation. Chest x-ray showed worsening pleural effusion. Patient denies progressive dyspnea. BNP is significantly elevated compared to last admission. Review of Systems Review of system: 14 points review of systems were obtained and were negative except to what were mentioned in the HPI. Past Medical History Past Medical History: Atrial Fibrillation, Coronary Artery Disease (CAD), Hyperlipidemia, Hypertension, Myocardial Infarction ([place]), Pneumonia Additional Past Medical History / Comment(s): X3 CT'S, ULCER YEARS AGO, bradycardia Last Myocardial Infarction Date:: 2004 History of Any Multi-Drug Resistant Organisms: None Reported Past Surgical History: AICD, Cardiac Ablation, Heart Catheterization With Stent, Orthopedic Surgery, Pacemaker Additional Past Surgical History / Comment(s): CARDIOVERSION, HEART STENTS X7, cardiac ablation x 2 in the past and again om 12-05-15, rt wrist surgery after injury Past Anesthesia/Blood Transfusion Reactions: No Reported Reaction Additional Past Anesthesia/Blood Transfusion Reaction / Comment(s): NEVER HAS HAD GENERAL ANESTHESIA Date of Last Stent Placement:: 2004 Type of Cardiac Device: AICD Device Placement Date:: 2015 Past Psychological History: No Psychological Hx Reported Smoking Status: Former smoker Past Alcohol Use History: None Reported Past Drug Use History: None Reported - Past Family History Father Additional Family Medical History / Comment(s): DAD HAD PACER BUT NO OTHER HX KNOWN Mother Family Medical History: No Reported History Additional Family Medical History / Comment(s): pt stated does'nt know medical hx on parents. Medications and Allergies Home Medications Medication Instructions Recorded Confirmed Type Metoprolol Succinate (ER) [Toprol 25 mg PO DAILY 03/11/20 04/17/20 History XL] Apixaban [Eliquis] 5 mg PO BID #60 tab 04/05/20 04/17/20 Rx Furosemide [Lasix] 40 mg PO Q48H #30 tab 04/12/20 04/17/20 Rx Midodrine [ProAmatine] 5 mg PO AC-TID #90 tab 04/12/20 04/17/20 Rx Omeprazole [PriLOSEC] 40 mg PO BID #60 cap 04/12/20 04/17/20 Rx Allergies Allergy/AdvReac Type Severity Reaction Status Date / Time No Known Allergies Allergy Verified 04/17/20 11:24 Physical Exam Vitals: Vital Signs Temp Pulse Resp BP Pulse Ox 04/17/20 11:30 89 16 112/78 95 04/17/20 11:00 109/74 04/17/20 10:34 97 23 04/17/20 10:26 97.7 F 102 H 22 101/54 98 Intake and Output 04/16/20 04/17/20 04/17/20 22:59 06:59 14:59 Other: Weight 65.771 kg General: The patient is awake and alert, in no distress Eye: there is normal conjunctiva bilaterally. Neck: The neck is supple, there is no JVD. Cardiovascular: Normal S1-S2, no S3-S4, no murmurs. Respiratory: Lungs with bibasilar crackles Gastrointestinal: Abdomen is soft, nontender Musculoskeletal: There is no pedal edema. Neurological:. Speech is normal. Skin: Skin is warm and dry Results CBC & Chem 7: 04/17/20 10:53 04/17/20 10:53 Labs: Abnormal Lab Results - Last 24 Hours (Table) 04/17/20 04/17/20 Range/Units 10:53 10:53 WBC 15.0 H (3.8-10.6) k/uL RDW 20.4 H (11.5-15.5) % Neutrophils # 10.7 H (1.3-7.7) k/uL Monocytes # 1.2 H (0-1.0) k/uL Sodium 130 L (137-145) mmol/L Chloride 89 L (98-107) mmol/L BUN 21 H (9-20) mg/dL Glucose 169 H (74-99) mg/dL Total Bilirubin 1.8 H (0.2-1.3) mg/dL Alkaline Phosphatase 292 H (38-126) U/L Assessment and Plan Assessment: 1. Chest pain, with typical and atypical features. 12-lead EKG in the emergency room showed no acute ischemic changes. Initial troponin is negative. We will continue telemetry monitoring. Then troponin. Cardiology consulted for further evaluation. 2. Coronary artery disease with multiple stent placement in the past. Patient had a left heart catheterization on 03/14/2020 showing chronic occluded RCA with extensive [id number] collaterals. With mild to moderate disease involving LAD and circumflex. Plan at the time was for optimal medical management. 3. Underlying ischemic cardiomyopathy with EF of 30-35%, chest x-ray showed worsening pleural effusion and BNP is significantly elevated compared to last admission. I will start the patient on IV Lasix 40 mg daily. Monitor kidney f unction closely. 4. Chronic atrial fibrillation on anticoagulation with Eliquis. Status post pacemaker/ICD implantation 5. Recent congestive hepatopathy during last admission. Liver enzymes within normal range. 6. Hyperlipidemia: I would restart patient on Lipitor and continue to monitor l iver enzyme closely 7. Patient is full code
[2020-04-17] MEDS: FUROSEMIDE 10 MG/ML 4 ML VIAL IV SCH (14:10)
[2020-04-17] MEDS: MIDODRINE 5 MG TAB PO SCH ×2 (14:11→17:17)
[2020-04-17] MEDS: APIXABAN 5 MG TAB PO SCH (20:06)
[2020-04-17] MEDS: ATORVASTATIN 40 MG TAB PO SCH (20:06)
[2020-04-18] MEDS ORDERED: MAG HYDROX/AL HYDROX/SIMETH 30 ML CUP PO PRN (00:03)
[2020-04-18] MEDS: ACETAMINOPHEN TAB 325 MG TAB PO PRN (00:31)
[2020-04-18 06:22] LABS: Anisocytosis Moderate; HCT 36.4 % (39.0-53.0); Hypochromasia Slight; MCH 26.9 pg (25.0-35.0); MCV 81.5 fL (80.0-100.0); Mean Platelet Volume 8.2; Microcytosis Slight; Platelet Count 225 k/uL (150-450); Poikilocytosis Slight; RBC 4.46 m/uL (4.30-5.90); RDW 20.5 % (11.5-15.5); WBC 14.4 k/uL (3.8-10.6)
[2020-04-18 06:48] LABS: Eosinophils # (M) 0.29 k/uL (0-0.7); Large Platelets Present; Lymphocytes # (M) 2.88 k/uL (1.0-4.8); Monocytes # (M) 1.44 k/uL (0-1.0); Neutrophils # (M) 9.79 k/uL (1.3-7.7); Neutrophils % (M) 68 %; Nucleated Red Blood Cells 0 /100 WBC (0-0); Total Cells Counted 100
[2020-04-18 08:49] LABS: African American GFR (CKD) 78.4 (60.0-200.0); Albumin 3.1 g/dL (3.80-4.90); Albumin/Globulin Ratio 1.15 (1.60-3.17); BUN/Creat Ratio 17.27 Ratio (12.00-20.00); Calcium 8.4 mg/dL (8.7-10.3); Chol/HDL Ratio 4.73; Globulin 2.7 g/dL (1.6-3.3); Magnesium 1.6 mg/dL (1.5-2.4); Non-African American GFR(CKD) 67.7 (60.0-200.0); Potassium 3.5 mmol/L (3.5-5.5); Total Bilirubin 1.9 mg/dL (0.2-1.2); Total Protein 5.8 g/dL (6.2-8.2)
[2020-04-18] MEDS ORDERED: ASPIRIN 325 MG TAB PO SCH (09:00)
[2020-04-18] MEDS ORDERED: FUROSEMIDE 40 MG TAB PO SCH (09:00)
[2020-04-18] MEDS: FUROSEMIDE 10 MG/ML 4 ML VIAL IV SCH (09:02)
[2020-04-18] MEDS: PANTOPRAZOLE 40 MG TABLET PO SCH (09:02)
[2020-04-18] MEDS: APIXABAN 5 MG TAB PO SCH (09:02)
[2020-04-18] MEDS: MIDODRINE 5 MG TAB PO SCH ×3 (09:03→15:46)
[2020-04-18] MEDS: METOPROLOL SUCCINATE (ER) 25 MG TAB.ER.24H PO SCH (10:34)
[2020-04-18] MEDS: POTASSIUM CHLORIDE ER 20 MEQ TAB.ER PO SCH (10:34)
--- NOTE | 2020-04-18 11:00 | US ---
EXAMINATION TYPE: US gallbladder DATE OF EXAM: 04/18/2020 COMPARISON: Ultrasound liver 04/01/2020 CLINICAL HISTORY: right upper quadrant pain. NPO EXAM MEASUREMENTS: Liver Length: 11.1 cm Gallbladder Wall: 0.2 cm CBD: 0.5 cm Right Kidney: 10.6 x 4.5 x 5.0 cm Pancreas: Tail obscured by overlying bowel gas Liver: Appears small in size. Coarse. Gallbladder: Mobile sludge seen. No wall thickening seen on todays exam. Evidence for sonographic Lovelace's sign: neg CBD: wnl Right Kidney: No hydronephrosis or masses seen and cortical medullary differentiation is maintained. IMPRESSION: Tumefactive sludge is suspected within the gallbladder, possible hepatocellular disease, hepatic steatosis
--- NOTE | 2020-04-18 12:01 | P.CRDCN ---
History of Present Illness Consult date: 04/18/20 History of present illness: CHIEF COMPLAINT: Chest pain HISTORY OF PRESENT ILLNESS: This is a 70-year-old male with a past medical history significant for coronary artery disease, ischemic cardiomyopathy, atrial fibrillation, and ventricular tachycardia with previous ICD implantation. Patient follows in the office with Dr. Curry. We have been asked to see the patient in consultation for chest pain. Patient had recent prolonged hospitalization secondary to acute kidney injury, shock, liver injury, and nausea and vomiting. Patient states he has been feeling well since being discharged. He reports two days ago he was eating ice cream and drank some water and then began having abdominal pain. He reports having some nausea but no vomiting. He reports some chest pain as well that started at about 10am and lasted until 8am the following morning. He denies any radiation of the pain. Denies shortness of breath. He reports the pain is worse with deep inspiration. Patient underwent cardiac catheterization February 2020 revealing a chronically occluded RCA, extensive [id number] collaterals, and mild to moderate coronary artery disease involving the LAD and circumflex. Echocardiogram completed in March 2020 revealed ejection fraction 25-30%, moderate mitral regurgitation and moderate global hypokinesis of LV DIAGNOSTICS: EKG reveals sinus mechanism with left bundle branch block. Chest xray progression patient's right pleural effusion. Correlate to exclude pneumonia Laboratory data: WBC 14.4 hemoglobin 12.0. Platelet count 225. Sodium 129. Potassium 3.5. BUN 19. Creatinine 1.1. Magnesium 1.6. Troponin negative 3. BNP 10,100. Current home cardiac medications include Midodrine 5 mg 3 times a day, metoprolol succinate 25 mg daily, Eliquis 5 mg twice a day, and Lasix 40 mg every 48 hours REVIEW OF SYSTEMS: At the time of my exam: CONSTITUTIONAL: Denies fever or chills. HEENT: Denies blurred vision, vision changes, or eye pain. Denies hemoptysis CARDIOVASCULAR: Denies chest pain, orthopnea, PND or palpitations RESPIRATORY: No shortness of breath. GASTROINTESTINAL: Denies abdominal pain. Denies nausea or vomiting. HEMATOLOGIC: Denies bleeding disorders. GENITOURINARY: Denies any blood in urine. SKIN: Denies pruitis. Denies rash. PHYSICAL EXAM: VITAL SIGNS: Reviewed. GENERAL: Well-developed in no acute distress. HEENT: Head is normocephalic. Pupils are equal, round. Sclerae anicteric. Mucous membranes of the mouth are moist. Neck supple. No JVD or thyromegaly LUNGS: Respirations even and unlabored. Lungs diminished bilaterally. HEART: Regular rate and rhythm. S1 and S2 heard. Systolic murmur noted. ABDOMEN: Soft. Nondistended. Tenderness with palpation of right upper quadrant. EXTREMITIES: Normal range of motion. No clubbing or cyanosis. Peripheral pulses intact. Trace bilateral lower extremity edema NEUROLOGIC: Awake and alert. Oriented x 3. ASSESSMENT: 1. Abdominal pain 2. Chest pain, atypical, troponin negative x 3 3. Coronary artery disease, s/p cardiac cath February 2020, revealing chronically occluded RCA, extensive [id number] collaterals, and mild to moderate coronary artery disease involving the LAD and circumflex 4. Ischemic cardiomyopathy, ejection fraction 25-30% 5. Chronic systolic congestive heart failure, currently euvolemic 6. Paroxysmal atrial fibrillation, on long-term anticoagulation with Eliquis 7. History of ventricular tachycardia with previous ICD implantation 8. Recent prolonged hospitalization secondary to acute liver injury, coagulo hallie, and CHF PLAN: An acute coronary event has been ruled out No need to repeat echocardiogram as this was performed in March 2020 Continue current cardiac medications Discontinue IV Lasix. Transition patient to oral Lasix 80 mg twice a day Obtain ultrasound of gallbladder Further recommendations pending patient's course Nurse practitioner note has been reviewed by physician. Signing provider agrees with the documented findings, assessment, and plan of care. Past Medical History Past Medical History: Atrial Fibrillation, Coronary Artery Disease (CAD), Hyperlipidemia, Hypertension, Myocardial Infarction ([place]), Pneumonia Additional Past Medical History / Comment(s): X3 [place]'S, ULCER YEARS AGO, bradycardia Last Myocardial Infarction Date:: 2004 History of Any Multi-Drug Resistant Organisms: None Reported Past Surgical History: AICD, Cardiac Ablation, Heart Catheterization With Stent, Orthopedic Surgery, Pacemaker Additional Past Surgical History / Comment(s): CARDIOVERSION, HEART STENTS X7, cardiac ablation x 2 in the past and again om 12-05-15, rt wrist surgery after injury Past Anesthesia/Blood Transfusion Reactions: No Reported Reaction Additional Past Anesthesia/Blood Transfusion Reaction / Comment(s): NEVER HAS SOARES D GENERAL ANESTHESIA Date of Last Stent Placement:: 2004 Type of Cardiac Device: AICD Device Placement Date:: 2015 Past Psychological History: No Psychological Hx Reported Smoking Status: Former smoker Past Alcohol Use History: None Reported Past Drug Use History: None Reported - Past Family History Father Additional Family Medical History / Comment(s): DAD HAD PACER BUT NO OTHER HX KNOWN Mother Family Medical History: No Reported History Additional Family Medical History / Comment(s): pt stated does'nt know medical hx on parents. Medications and Allergies Home Medications Medication Instructions Recorded Confirmed Type Metoprolol Succinate (ER) [Toprol 25 mg PO DAILY 03/11/20 04/17/20 History XL] Apixaban [Eliquis] 5 mg PO BID #60 tab 04/05/20 04/17/20 Rx Furosemide [Lasix] 40 mg PO Q48H #30 tab 04/12/20 04/17/20 Rx Midodrine [ProAmatine] 5 mg PO AC-TID #90 tab 04/12/20 04/17/20 Rx Omeprazole [PriLOSEC] 40 mg PO BID #60 cap 04/12/20 04/17/20 Rx Allergies Allergy/AdvReac Type Severity Reaction Status Date / Time No Known Allergies Allergy Verified 04/17/20 11:24 Physical Exam Vitals: Vital Signs Temp Pulse Pulse Resp BP BP Pulse Ox 04/18/20 08:00 97.8 F 91 16 99/64 93 L 04/18/20 01:31 98.2 F 88 15 101/67 92 L 04/17/20 22:55 105 H 99/66 04/17/20 20:12 94 101/57 91 L 04/17/20 19:53 16 04/17/20 19:51 98.0 F 88 16 106/67 93 L 04/17/20 13:59 98.5 F 93 16 99/67 95 04/17/20 12:30 85 20 100/57 96 04/17/20 12:01 96 04/17/20 12:00 87 15 106/67 Intake and Output 04/17/20 04/18/20 04/18/20 22:59 06:59 14:59 Output Total 650 350 Balance -650 -350 Output: Urine 650 350 Other: Voiding Method Urinal Results 04/18/20 05:37 04/18/20 05:37 Cardiac Enzymes 04/17/20 04/17/20 04/18/20 Range/Units 13:56 17:02 05:37 AST 28 (14-35) U/L Troponin I <0.012 <0.012 (0.000-0.034) ng/mL Lipids 04/18/20 Range/Units 05:37 Triglycerides 70.0 (0.0-149.0) mg/dL Cholesterol 104 (0-200) mg/dL HDL Cholesterol 22.0 L (40.0-60.0) mg/dL Cholesterol/HDL Ratio 4.73 CBC 04/18/20 Range/Units 05:37 WBC 14.4 H (3.8-10.6) k/uL RBC 4.46 (4.30-5.90) m/uL Hgb 12.0 L (13.0-17.5) gm/dL Hct 36.4 L (39.0-53.0) % Plt Count 225 (150-450) k/uL Comprehensive Metabolic Panel 04/18/20 Range/Units 05:37 Sodium 129 L (135-145) mmol/L Potassium 3.5 (3.5-5.5) mmol/L Chloride 90 L (96-109) mmol/L Carbon Dioxide 32.0 H (21.6-31.8) mmol/L BUN 19.0 (9.0-27.0) mg/dL Creatinine 1.1 (0.6-1.5) mg/dL Glucose 109 (70-110) mg/dL Calcium 8.4 L (8.7-10.3) mg/dL AST 28 (14-35) U/L ALT 21 (10-49) U/L Alkaline Phosphatase 240 H (41-126) U/L Total Protein 5.8 L (6.2-8.2) g/dL Albumin 3.10 L (3.80-4.90) g/dL Current Medications Generic Name Dose Route Start Last Admin Trade Name Freq PRN Reason Stop Dose Admin Acetaminophen 650 mg 04/18/20 00:04 04/18/20 00:31 Acetaminophen Tab 325 Mg Tab PO 650 mg Q6HR PRN Administration Fever and/ or Pain Al Hydroxide/Mg Hydroxide 30 ml 04/18/20 00:03 04/18/20 00:31 Mag Hydrox/Al Hydrox/Simeth 30 Ml Cup PO 30 ml Q4HR PRN Administration GI Upset Apixaban 5 mg 04/17/20 21:00 04/18/20 09:02 Apixaban 5 Mg Tab PO 5 mg BID BRENT Administration Aspirin 325 mg 04/18/20 09:00 04/18/20 09:02 Aspirin 325 Mg Tab PO 325 mg DAILY BRENT Administration Atorvastatin Calcium 40 mg 04/17/20 21:00 04/17/20 20:06 Atorvastatin 40 Mg Tab PO 40 mg HS BRENT Administration Furosemide 80 mg 04/18/20 16:00 Furosemide 80 Mg Tab PO BID@0900,1600 [facility] Metoprolol Succinate 25 mg 04/18/20 09:00 04/18/20 10:34 Metoprolol Succinate (Er) 25 Mg Tab.Er.24h PO 25 mg DAILY BRENT Administration Midodrine 5 mg 04/17/20 12:30 04/18/20 09:03 Midodrine 5 Mg Tab PO 5 mg AC-TID BRENT Administration Nitroglycerin 0.4 mg 04/17/20 12:01 04/17/20 20:06 Nitroglycerin Sl Tabs 0.4 Mg Tab SUBLINGUAL 0.4 mg Q5M PRN Administration Chest Pain Pantoprazole Sodium 40 mg 04/18/20 07:30 04/18/20 09:02 Pantoprazole 40 Mg Tablet PO 40 mg DAILY@0730 [facility] Administration Potassium Chloride 20 meq 04/18/20 09:30 04/18/20 10:34 Potassium Chloride Er 20 Meq Tab.Er PO 20 meq DAILY BRENT Administration Intake and Output 04/17/20 04/18/20 04/18/20 22:59 06:59 14:59 Output Total 650 350 Balance -650 -350 Output: Urine 650 350 Other: Voiding Method Urinal 04/18/20 05:37 04/18/20 05:37
--- NOTE | 2020-04-18 12:37 | P.PN ---
Subjective Progress Note Date: 04/18/20 Patient is doing fairly well today. He does not have any complaints this morning. He was thought by cardiology that his symptoms might be attributed to his gallbladder on ultrasound of the abdomen was ordered. Objective - Vital Signs Vital signs: Vital Signs Temp 97.8 F 04/18/20 08:00 Pulse 91 04/18/20 08:00 Resp 16 04/18/20 08:00 BP 99/64 04/18/20 08:00 Pulse Ox 93 L 04/18/20 08:00 Intake & Output 04/17/20 04/18/20 04/18/20 18:59 06:59 18:59 Output Total 650 350 Balance -650 -350 Weight 65.771 kg Output: Urine 650 350 Other: Voiding Method Urinal - Exam General: The patient is awake and alert, in no distress Eye: there is normal conjunctiva bilaterally. Neck: The neck is supple, there is no JVD. Cardiovascular: Normal S1-S2, no S3-S4, no murmurs. Respiratory: Lungs clear to auscultation bilaterally Gastrointestinal: Abdomen is soft, nontender Musculoskeletal: There is no pedal edema. Neurological:. Speech is normal. Skin: Skin is warm and dry - Labs CBC & Chem 7: 04/18/20 05:37 04/18/20 05:37 Labs: Abnormal Lab Results - Last 24 Hours (Table) 04/18/20 04/18/20 Range/Units 05:37 05:37 WBC 14.4 H (3.8-10.6) k/uL Hgb 12.0 L (13.0-17.5) gm/dL Hct 36.4 L (39.0-53.0) % RDW 20.5 H (11.5-15.5) % Neutrophils # (Manual) 9.79 H (1.3-7.7) k/uL Monocytes # (Manual) 1.44 H (0-1.0) k/uL Sodium 129 L (135-145) mmol/L Chloride 90 L (96-109) mmol/L Carbon Dioxide 32.0 H (21.6-31.8) mmol/L Calcium 8.4 L (8.7-10.3) mg/dL Total Bilirubin 1.9 H (0.2-1.2) mg/dL Alkaline Phosphatase 240 H (41-126) U/L Total Protein 5.8 L (6.2-8.2) g/dL Albumin 3.10 L (3.80-4.90) g/dL Albumin/Globulin Ratio 1.15 L (1.60-3.17) g/dL HDL Cholesterol 22.0 L (40.0-60.0) mg/dL Assessment and Plan Assessment: 1. Chest pain, with typical and atypical features. ACS ruled out 12-lead EKG in the emergency room showed no acute ischemic changes. Serial troponin negative. Patient was seen and evaluated by cardiology. Thought that patient's complaint is mostly abdominal an ultrasound of the abdomen was ordered showing gallbladder sludge. No acute findings otherwise. Gen. surgery consulted for further evaluation. 2. Coronary artery disease with multiple stent placement in the past. Patient had a left heart catheterization on 03/14/2020 showing chronic occluded RCA with extensive [id number] collaterals. With mild to moderate disease involving LAD and circumflex. Plan at the time was for optimal medical management. 3. Underlying ischemic cardiomyopathy with EF of 30-35%, chest x-ray showed worsening pleural effusion and BNP is significantly elevated compared to last admission. I started the patient on IV Lasix. Cardiology transitioned to oral Lasix 80 mg twice daily. Monitor kidney function closely. 4. Chronic atrial fibrillation on anticoagulation with Eliquis. Status post pacemaker/ICD implantation 5. Recent congestive hepatopathy during last admission. Liver enzymes within normal range. 6. Hyperlipidemia: I restarted patient on Lipitor and will continue to monitor liver enzyme closely 7. Patient is full code
--- NOTE | 2020-04-18 14:42 | P.GSCN ---
History of Present Illness Consult date: 04/18/20 History of present illness: CHIEF COMPLAINT: Chest pain HISTORY OF PRESENT ILLNESS: This is a 70-year-old male with a known history of severe coronary artery disease with multiple cardiac stents, atrial fibrillation anticoagulated with Eliquis, myocardial infarction, hyperlipidemia, hypertension AICD. Patient presented to the emergency room with complaints of chest pain. Patient had been discharged from the hospital couple a days ago for a systolic CHF exacerbation. Patient presented to the ER with complaints of severe chest pain in the middle of his chest. He did take 2 nitro with minimal relief. Patient had reported that 2 days ago he had been eating ice cream and drink some water and then had abdominal pain. He had reported some nausea but no vomiting. troponins were negative 3. Patient was seen and evaluated by cardiology acute coronary syndrome was ruled out. Patient denies any fever or chills or sweats. PAST MEDICAL HISTORY: See list. PAST SURGICAL HISTORY: See list. MEDICATIONS: See list. ALLERGIES: See list. SOCIAL HISTORY: No illicit drug use. REVIEW OF SYSTEMS: CONSTITUTIONAL: Denies fever or chills. HEENT: Denies blurred vision, vision changes, or eye pain. Denies hemoptysis CARDIOVASCULAR: Denies chest pain or pressure. RESPIRATORY: No shortness of breath. GASTROINTESTINAL: See HPI for pertinent findings HEMATOLOGIC: Denies bleeding disorders. GENITOURINARY: Denies any blood in urine or increased urinary frequency. SKIN: Denies pruitis. Denies rash. PHYSICAL EXAM: VITAL SIGNS: Reviewed GENERAL: Well-developed in no acute distress. HEENT: No sclera icterus. Extraocular movements grossly intact. Moist buccal mucosa. Head is atraumatic, normocephalic. No nasal drainage. ABDOMEN: Soft. Nondistended. Tenderness with palpation to the right upper quadrant NEUROLOGIC: Alert and oriented. Cranial nerves II through XII grossly intact. LABORATORY DATA: WBC 14.4 hemoglobin 12 sodium 129 creatinine 1.1 troponins negative 3 AST ALT normal AST 1.9 alk phos 292 down to 240 lipase 108 Covid not detected IMAGING: abdominal ultrasound sludges suspected within the gallbladder ASSESSMENT: 1. Right upper quadrant abdominal pain 2. Acute cholecystitis with ultrasound evidence of gallbladder sludge PLAN: -Plan for laparoscopic cholecystectomy on Saturday to 04/20/[address] Farah -Meghan Armas in preparation for surgery -Okay for heart healthy low-fat diet Thank you for this consultation Physician Staff Toxicologist note has been reviewed by physician. Signing provider agrees with the documented findings, assessment, and plan of care. Past Medical History Past Medical History: Atrial Fibrillation, Coronary Artery Disease (CAD), Hyperlipidemia, Hypertension, Myocardial Infarction ([place]), Pneumonia Additional Past Medical History / Comment(s): X3 [place]'S, ULCER YEARS AGO, bradycardia Last Myocardial Infarction Date:: 2004 History of Any Multi-Drug Resistant Organisms: None Reported Past Surgical History: AICD, Cardiac Ablation, Heart Catheterization With Stent, Orthopedic Surgery, Pacemaker Additional Past Surgical History / Comment(s): CARDIOVERSION, HEART STENTS X7, cardiac ablation x 2 in the past and again om 12-05-15, rt wrist surgery after injury Past Anesthesia/Blood Transfusion Reactions: No Reported Reaction Additional Past Anesthesia/Blood Transfusion Reaction / Comm: NEVER HAS HAD GENERAL ANESTHESIA Date of Last Stent Placement:: 2004 Type of Cardiac Device: AICD Device Placement Date:: 2015 Past Psychological History: No Psychological Hx Reported Smoking Status: Former smoker Past Alcohol Use History: None Reported Past Drug Use History: None Reported - Past Family History Father Additional Family Medical History / Comment(s): DAD HAD PACER BUT NO OTHER HX KNOWN Mother Family Medical History: No Reported History Additional Family Medical History / Comment(s): pt stated does'nt know medical hx on parents. Medications and Allergies Home Medications Medication Instructions Recorded Confirmed Type Metoprolol Succinate (ER) [Toprol 25 mg PO DAILY 03/11/20 04/17/20 History XL] Apixaban [Eliquis] 5 mg PO BID #60 tab 04/05/20 04/17/20 Rx Furosemide [Lasix] 40 mg PO Q48H #30 tab 04/12/20 04/17/20 Rx Midodrine [ProAmatine] 5 mg PO AC-TID #90 tab 04/12/20 04/17/20 Rx Omeprazole [PriLOSEC] 40 mg PO BID #60 cap 04/12/20 04/17/20 Rx Allergies Allergy/AdvReac Type Severity Reaction Status Date / Time No Known Allergies Allergy Verified 04/17/20 11:24 Surgical - Exam Vital Signs Temp Pulse Resp BP Pulse Ox 97.7 F 102 H 22 101/54 98 04/17/20 10:26 04/17/20 10:26 04/17/20 10:26 04/17/20 10:26 04/17/20 10:26 Results - Labs 04/18/20 05:37 04/18/20 05:37 Abnormal Lab Results - Last 24 Hours (Table) 04/18/20 04/18/20 Range/Units 05:37 05:37 WBC 14.4 H (3.8-10.6) k/uL Hgb 12.0 L (13.0-17.5) gm/dL Hct 36.4 L (39.0-53.0) % RDW 20.5 H (11.5-15.5) % Neutrophils # (Manual) 9.79 H (1.3-7.7) k/uL Monocytes # (Manual) 1.44 H (0-1.0) k/uL Sodium 129 L (135-145) mmol/L Chloride 90 L (96-109) mmol/L Carbon Dioxide 32.0 H (21.6-31.8) mmol/L Calcium 8.4 L (8.7-10.3) mg/dL Total Bilirubin 1.9 H (0.2-1.2) mg/dL Alkaline Phosphatase 240 H (41-126) U/L Total Protein 5.8 L (6.2-8.2) g/dL Albumin 3.10 L (3.80-4.90) g/dL Albumin/Globulin Ratio 1.15 L (1.60-3.17) g/dL HDL Cholesterol 22.0 L (40.0-60.0) mg/dL Diabetes panel 04/18/20 Range/Units 05:37 Sodium 129 L (135-145) mmol/L Potassium 3.5 (3.5-5.5) mmol/L Chloride 90 L (96-109) mmol/L Carbon Dioxide 32.0 H (21.6-31.8) mmol/L BUN 19.0 (9.0-27.0) mg/dL Creatinine 1.1 (0.6-1.5) mg/dL Glucose 109 (70-110) mg/dL Calcium 8.4 L (8.7-10.3) mg/dL AST 28 (14-35) U/L ALT 21 (10-49) U/L Alkaline Phosphatase 240 H (41-126) U/L Total Protein 5.8 L (6.2-8.2) g/dL Albumin 3.10 L (3.80-4.90) g/dL Triglycerides 70.0 (0.0-149.0) mg/dL HDL Cholesterol 22.0 L (40.0-60.0) mg/dL Calcium panel 04/18/20 Range/Units 05:37 Calcium 8.4 L (8.7-10.3) mg/dL Albumin 3.10 L (3.80-4.90) g/dL Pituitary panel 04/18/20 Range/Units 05:37 Sodium 129 L (135-145) mmol/L Potassium 3.5 (3.5-5.5) mmol/L Chloride 90 L (96-109) mmol/L Carbon Dioxide 32.0 H (21.6-31.8) mmol/L BUN 19.0 (9.0-27.0) mg/dL Creatinine 1.1 (0.6-1.5) mg/dL Glucose 109 (70-110) mg/dL Calcium 8.4 L (8.7-10.3) mg/dL Adrenal panel 04/18/20 Range/Units 05:37 Sodium 129 L (135-145) mmol/L Potassium 3.5 (3.5-5.5) mmol/L Chloride 90 L (96-109) mmol/L Carbon Dioxide 32.0 H (21.6-31.8) mmol/L BUN 19.0 (9.0-27.0) mg/dL Creatinine 1.1 (0.6-1.5) mg/dL Glucose 109 (70-110) mg/dL Calcium 8.4 L (8.7-10.3) mg/dL Total Bilirubin 1.9 H (0.2-1.2) mg/dL AST 28 (14-35) U/L ALT 21 (10-49) U/L Alkaline Phosphatase 240 H (41-126) U/L Total Protein 5.8 L (6.2-8.2) g/dL Albumin 3.10 L (3.80-4.90) g/dL
[2020-04-18] MEDS: FUROSEMIDE 80 MG TAB PO SCH (15:46)
[2020-04-18] MEDS: ATORVASTATIN 40 MG TAB PO SCH (19:06)
[2020-04-19] MEDS: METOPROLOL SUCCINATE (ER) 25 MG TAB.ER.24H PO SCH (08:37)
[2020-04-19] MEDS: MIDODRINE 5 MG TAB PO SCH ×3 (08:37→17:01)
[2020-04-19] MEDS: PANTOPRAZOLE 40 MG TABLET PO SCH (08:37)
[2020-04-19] MEDS: POTASSIUM CHLORIDE ER 20 MEQ TAB.ER PO SCH (08:37)
[2020-04-19] MEDS: FUROSEMIDE 80 MG TAB PO SCH ×2 (08:37→16:01)
[2020-04-19 09:22] LABS: HCT 36.3 % (39.6-50.0); MCH 26.2 pg (27.0-32.0); MCHC 33.1 g/dL (32.0-37.0); MCV 79.3 fL (80.0-97.0); Mean Platelet Volume 12.1 fL (9.5-12.2); Platelet Count 259 X 10*3/uL (140-440); RBC 4.58 X 10*6/uL (4.40-5.60); RDW 23.1 % (11.5-14.5); WBC 12.56 X 10*3/uL (4.50-10.00)
[2020-04-19 09:54] LABS: Albumin 3.2 g/dL (3.80-4.90); Albumin/Globulin Ratio 1.23 (1.60-3.17); Anion Gap 10.6 mmol/L (4.00-12.00); Calcium 8.1 mg/dL (8.7-10.3); Carbon Dioxide 31.4 mmol/L (21.6-31.8); Globulin 2.6 g/dL (1.6-3.3); Magnesium 1.5 mg/dL (1.5-2.4); Non-African American GFR(CKD) 75.9 (60.0-200.0); Potassium 3.3 mmol/L (3.5-5.5); Total Bilirubin 1.8 mg/dL (0.2-1.2); Total Protein 5.8 g/dL (6.2-8.2)
[2020-04-19] MEDS ORDERED: POTASSIUM CHLORIDE ER 20 MEQ TAB.ER PO STA (10:27)
--- NOTE | 2020-04-19 10:30 | P.PN ---
Subjective Progress Note Date: 04/19/20 CHIEF COMPLAINT: Chest pain HISTORY OF PRESENT ILLNESS: 04/18/2020 This is a 70-year-old male with a past medical history significant for coronary artery disease, ischemic cardiomyopathy, atrial fibrillation, and ventricular tachycardia with previous ICD implantation. Patient follows in the office with Dr. Curry. We have been asked to see the patient in consultation for chest pain. Patient had recent prolonged hospitalization secondary to acute kidney injury, shock, liver injury, and nausea and vomiting. Patient states he has been feeling well since being discharged. He reports two days ago he was eating ice cream and drank some water and then began having abdominal pain. He reports having some nausea but no vomiting. He reports some chest pain as well that started at about 10am and lasted until 8am the following morning. He denies any radiation of the pain. Denies shortness of breath. He reports the pain is worse with deep inspiration. Patient underwent cardiac catheterization February 2020 revealing a chronically occluded RCA, extensive vgxk-[id number] collaterals, and mild to moderate coronary artery disease involving the LAD and circumflex. Echocardiogram completed in March 2020 revealed ejection fraction 25-30%, moderate mitral regurgitation and moderate global hypokinesis of LV 04/19/2020 Patient examined this morning at the bedside. Patient underwent gallbladder ultrasound yesterday revealing evidence of gallbladder sludge, without gallbladder wall thickening or evidence of sonographic Lovelace sign. Patient denies abdominal pain this morning. He denies nausea or vomiting. Denies chest pain or pressure. Blood pressure 99/63. Heart rate in the 70s. He is on room air with oxygen saturations greater than 92%. He is afebrile. PHYSICAL EXAM: VITAL SIGNS: Reviewed. GENERAL: Well-developed in no acute distress. HEENT: Head is normocephalic. Pupils are equal, round. Sclerae anicteric. Mucous membranes of the mouth are moist. Neck supple. No JVD or thyromegaly LUNGS: Respirations even and unlabored. Lungs diminished bilaterally. HEART: Regular rate and rhythm. S1 and S2 heard. Systolic murmur noted. EXTREMITIES: Normal range of motion. No clubbing or cyanosis. Peripheral pulses intact. Trace bilateral lower extremity edema ASSESSMENT: 1. Abdominal pain, gallbladder ultrasound revealing sludge, possible acute cholecystitis per general surgery 2. Chest pain, atypical, troponin negative x 3 3. Coronary artery disease, s/p cardiac cath February 2020, revealing cvicu nurse nically occluded RCA, extensive frwl-qf-ghzly collaterals, and mild to moderate coronary artery disease involving the LAD and circumflex 4. Ischemic cardiomyopathy, ejection fraction 25-30% 5. Chronic systolic congestive heart failure, currently euvolemic 6. Paroxysmal atrial fibrillation, on long-term anticoagulation with Eliquis 7. History of ventricular tachycardia with previous ICD implantation 8. Recent prolonged hospitalization secondary to acute liver injury, coagulopathy, and CHF PLAN: Continue current cardiac medications Monitor electrolytes Patient started on daily potassium supplementation yesterday. Give an additional 20 meq this morning. Replace magnesium Eliquis remains on hold Patient scheduled for laparoscopic cholecystectomy tomorrow with Dr. Farah Patient is high risk for surgical intervention. However, there are no absolute contraindications to undergo surgery from a cardiac standpoint Further recommendations pending patient's course Nurse practitioner note has been reviewed by physician. Signing provider agrees with the documented findings, assessment, and plan of care. Objective - Vital Signs Vital signs: Vital Signs Temp 98.4 F 04/19/20 07:28 Pulse 79 04/19/20 07:28 Resp 14 04/19/20 07:28 BP 99/63 04/19/20 07:28 Pulse Ox 94 L 04/19/20 07:28 Intake & Output 04/18/20 04/19/20 04/19/20 18:59 06:59 18:59 Intake Total 300 Output Total 225 675 401 Balance 75 -675 -401 Intake: Oral 300 Output: Urine 225 675 400 Emesis 1 Other: Voiding Method Urinal Urinal - Labs CBC & Chem 7: 04/19/20 04:34 04/19/20 04:34 Labs: Abnormal Lab Results - Last 24 Hours (Table) 04/19/20 04/19/20 Range/Units 04:34 04:34 WBC 12.56 H (4.50-10.00) X 10*3/uL Hgb 12.0 L (13.0-17.0) g/dL Hct 36.3 L (39.6-50.0) % MCV 79.3 L (80.0-97.0) fL MCH 26.2 L (27.0-32.0) pg RDW 23.1 H (11.5-14.5) % Sodium 132 L (135-145) mmol/L Potassium 3.3 L (3.5-5.5) mmol/L Chloride 90 L (96-109) mmol/L Calcium 8.1 L (8.7-10.3) mg/dL Total Bilirubin 1.8 H (0.2-1.2) mg/dL Alkaline Phosphatase 225 H (41-126) U/L Total Protein 5.8 L (6.2-8.2) g/dL Albumin 3.20 L (3.80-4.90) g/dL Albumin/Globulin Ratio 1.23 L (1.60-3.17) g/dL
[2020-04-19 10:33] LABS: Acanthocytes 2+; Anisocytosis (M) 3+; Basophils # (A) 0.08 X 10*3/uL (0.00-0.10); Basophils % (A) 0.6 %; Eosinophils # (A) 0.13 X 10*3/uL (0.04-0.35); Lymphocytes # (A) 3.19 X 10*3/uL (0.90-5.00); Lymphocytes % (A) 25.4 %; Monocytes # (A) 1.47 X 10*3/uL (0.20-1.00); Monocytes % (A) 11.7 %; Neutrophils # (A) 7.62 X 10*3/uL (1.80-7.70); Neutrophils % (A) 60.7 %; Spherocytes 2+
[2020-04-19] MEDS: MAGNESIUM SULFATE-D5W PMX 1 GM in DEXTROSE/WATER 1 100ML.BAG IVPB SCH ×2 (11:26→12:47)
--- NOTE | 2020-04-19 14:13 | P.PN ---
Subjective Progress Note Date: 04/19/20 Patient is doing fairly well today. He does not have any complaints this morning. Objective - Vital Signs Vital signs: Vital Signs Temp 98.4 F 04/19/20 07:28 Pulse 79 04/19/20 07:28 Resp 14 04/19/20 07:28 BP 99/63 04/19/20 07:28 Pulse Ox 97 04/19/20 12:53 Intake & Output 04/18/20 04/19/20 04/19/20 18:59 06:59 18:59 Intake Total 300 Output Total 225 675 401 Balance 75 675 -401 Intake: Oral 300 Output: Urine 225 675 400 Emesis 1 Other: Voiding Method Urinal Urinal - Exam General: The patient is awake and alert, in no distress Eye: there is normal conjunctiva bilaterally. Neck: The neck is supple, there is no JVD. Cardiovascular: Normal S1-S2, no S3-S4, no murmurs. Respiratory: Lungs clear to auscultation bilaterally Gastrointestinal: Abdomen is soft, nontender Musculoskeletal: There is no pedal edema. Neurological:. Speech is normal. Skin: Skin is warm and dry - Labs CBC & Chem 7: 04/19/20 04:34 04/19/20 04:34 Labs: Abnormal Lab Results - Last 24 Hours (Table) 04/19/20 04/19/20 Range/Units 04:34 04:34 WBC 12.56 H (4.50-10.00) X 10*3/uL Hgb 12.0 L (13.0-17.0) g/dL Hct 36.3 L (39.6-50.0) % MCV 79.3 L (80.0-97.0) fL MCH 26.2 L (27.0-32.0) pg RDW 23.1 H (11.5-14.5) % Immature Gran # 0.07 H (0.00-0.04) X 10*3/uL Monocytes # 1.47 H (0.20-1.00) X 10*3/uL Sodium 132 L (135-145) mmol/L Potassium 3.3 L (3.5-5.5) mmol/L Chloride 90 L (96-109) mmol/L Calcium 8.1 L (8.7-10.3) mg/dL Total Bilirubin 1.8 H (0.2-1.2) mg/dL Alkaline Phosphatase 225 H (41-126) U/L Total Protein 5.8 L (6.2-8.2) g/dL Albumin 3.20 L (3.80-4.90) g/dL Albumin/Globulin Ratio 1.23 L (1.60-3.17) g/dL Assessment and Plan Assessment: This is a 70-year-old male with complex past medical history noted below who presented to the emergency room with chest pain. Patient was evaluated in the ER and admitted to the hospital for further management of his medical problems noted below. 1. Chest pain, with typical and atypical features. ACS ruled out 12-lead EKG in the emergency room showed no acute ischemic changes. Serial troponin negative. Patient was seen and evaluated by cardiology. Thought that patient's complaint is mostly abdominal an ultrasound of the abdomen was ordered showing gallbladder sludge. No acute findings otherwise. Gen. surgery consulted for f urther evaluation. 2. Gallbladder sludge with suspected acute cholecystitis, patient was seen and evaluated by general surgery. Plan for cholecystectomy in the morning. 3. Coronary artery disease with multiple stent placement in the past. Patient had a left heart catheterization on 03/14/2020 showing chronic occluded RCA with extensive [id number] collaterals. With mild to moderate disease involving LAD and circumflex. Plan at the time was for optimal medical management. 4. Underlying ischemic cardiomyopathy with EF of 30-35%, chest x-ray showed worsening pleural effusion and BNP is significantly elevated compared to last admission. I started the patient on IV Lasix. Cardiology transitioned to oral Lasix 80 mg twice daily. Monitor kidney function closely. 5. Chronic atrial fibrillation on anticoagulation with Eliquis. Status post pacemaker/ICD implantation 6. Recent congestive hepatopathy during last admission. Liver enzymes within normal range. 7. Hyperlipidemia: I restarted patient on Lipitor and will continue to monitor liver enzyme closely 8. Hypokalemia and hypomagnesemia, replacement ordered. Recheck lab work in the morning. 9. Patient is full code
--- NOTE | 2020-04-19 14:29 | P.PN ---
Subjective Progress Note Date: 04/19/20 CHIEF COMPLAINT: Chest pain HISTORY OF PRESENT ILLNESS: Patient is being followed for an acute cholecysti tis. He did have an episode of vomiting this morning. He is not complaining of any pain. This morning. He did have intermittent right upper quadrant abdominal pain at home. His Eliquis remains on hold. He is afebrile. WBC 12.56 sodium 132 potassium 3.3 magnesium 1.5 PHYSICAL EXAM: VITAL SIGNS: Reviewed. GENERAL: Well-developed in no acute distress. HEENT: No sclera icterus. Extraocular movements grossly intact. Moist buccal mucosa. Head is atraumatic, normocephalic. ABDOMEN: Soft. Nondistended. Nontender. NEUROLOGIC: Alert and oriented. Cranial nerves II through XII grossly intact. ASSESSMENT: 1. Right upper quadrant abdominal pain 2. Acute cholecystitis with ultrasound evidence of gallbladder sludge 3. Hypokalemia and hypomagnesemia PLAN: -Patient scheduled for laparoscopic cholecystectomy tomorrow with Dr. Farah -Keep Eliquis on hold -Magnesium and potassium being replaced -Nothing by mouth after midnight Physician Bill Collector note has been reviewed by physician. Signing provider agrees with the documented findings, assessment, and plan of care. Objective - Vital Signs Vital signs: Vital Signs Temp 98.4 F 04/19/20 07:28 Pulse 79 04/19/20 07:28 Resp 14 04/19/20 07:28 BP 99/63 04/19/20 07:28 Pulse Ox 97 04/19/20 12:53 Intake & Output 04/18/20 04/19/20 04/19/20 18:59 06:59 18:59 Intake Total 300 Output Total 225 675 401 Balance 75 -675 -401 Intake: Oral 300 Output: Urine 225 675 400 Emesis 1 Other: Voiding Method Urinal Urinal - Labs CBC & Chem 7: 04/19/20 04:34 04/19/20 04:34 Labs: Abnormal Lab Results - Last 24 Hours (Table) 04/19/20 04/19/20 Range/Units 04:34 04:34 WBC 12.56 H (4.50-10.00) X 10*3/uL Hgb 12.0 L (13.0-17.0) g/dL Hct 36.3 L (39.6-50.0) % MCV 79.3 L (80.0-97.0) fL MCH 26.2 L (27.0-32.0) pg RDW 23.1 H (11.5-14.5) % Immature Gran # 0.07 H (0.00-0.04) X 10*3/uL Monocytes # 1.47 H (0.20-1.00) X 10*3/uL Sodium 132 L (135-145) mmol/L Potassium 3.3 L (3.5-5.5) mmol/L Chloride 90 L (96-109) mmol/L Calcium 8.1 L (8.7-10.3) mg/dL Total Bilirubin 1.8 H (0.2-1.2) mg/dL Alkaline Phosphatase 225 H (41-126) U/L Total Protein 5.8 L (6.2-8.2) g/dL Albumin 3.20 L (3.80-4.90) g/dL Albumin/Globulin Ratio 1.23 L (1.60-3.17) g/dL
[2020-04-19] MEDS ORDERED: MAGNESIUM SULFATE-D5W PMX 1 GM in DEXTROSE/WATER 1 100ML.BAG IVPB ONE (15:00)
[2020-04-19] MEDS ORDERED: DEXAMETHASONE SOD PHOSPHATE 4 MG/ML 1 ML VIAL IV ONE (17:32)
[2020-04-19] MEDS ORDERED: ONDANSETRON 4 MG/2 ML VIAL IVP ONE (17:32)
[2020-04-19] MEDS ORDERED: LIDOCAINE 1% (10MG/ML) FOR IV START INTRADERMA PRN (17:32)
[2020-04-19] MEDS ORDERED: LACTATED RINGERS 1,000 ML IV SCH (17:45)
[2020-04-19] MEDS: ATORVASTATIN 40 MG TAB PO SCH (20:21)
[2020-04-20 05:24] LABS: African American GFR (CKD) 78 (>60 ml/min/1.73 sqM); Anion Gap 10 mmol/L; Blood Urea Nitrogen 19 mg/dL (9-20); Calcium 8.2 mg/dL (8.4-10.2); Carbon Dioxide 29 mmol/L (22-30); Chloride 88 mmol/L (98-107); Glucose 141 mg/dL (74-99); Magnesium 2.2 mg/dL (1.6-2.3); Non-African American GFR(CKD) 68 (>60 ml/min/1.73 sqM); Potassium 4.7 mmol/L (3.5-5.1); Sodium 127 mmol/L (137-145)
[2020-04-20 06:09] LABS: Anisocytosis Moderate; Basophils % (A) 0 %; Eosinophils % (A) 0 %; HCT 40.7 % (39.0-53.0); HGB 12.7 gm/dL (13.0-17.5); Hypochromasia Slight; Lymphocytes # (A) 1.9 k/uL (1.0-4.8); Lymphocytes % (A) 22 %; MCH 26.1 pg (25.0-35.0); MCHC 31.1 g/dL (31.0-37.0); MCV 83.8 fL (80.0-100.0); Mean Platelet Volume 9.7; Microcytosis Slight; Monocytes # (A) 0.3 k/uL (0-1.0); Monocytes % (A) 3 %; Neutrophils # (A) 6.4 k/uL (1.3-7.7); Neutrophils % (A) 74 %; Platelet Count 298 k/uL (150-450); Poikilocytosis Slight; RBC 4.86 m/uL (4.30-5.90); RDW 21.2 % (11.5-15.5); WBC 8.6 k/uL (3.8-10.6)
[2020-04-20 09:26] LABS: Target Cells Present
[2020-04-20] MEDS: PANTOPRAZOLE 40 MG TABLET PO SCH (10:28)
[2020-04-20] MEDS: MIDODRINE 5 MG TAB PO SCH ×3 (10:28→18:10)
[2020-04-20] MEDS: METOPROLOL SUCCINATE (ER) 25 MG TAB.ER.24H PO SCH (10:28)
[2020-04-20] MEDS ORDERED: IV FLUID CONTINUATION 725 ML IV ONE (12:13)
--- NOTE | 2020-04-20 12:31 | P.PN ---
Subjective Progress Note Date: 04/20/20 CHIEF COMPLAINT: Chest pain HISTORY OF PRESENT ILLNESS: 04/18/2020 This is a 70-year-old male with a past medical history significant for coronary artery disease, ischemic cardiomyopathy, atrial fibrillation, and ventricular tachycardia with previous ICD implantation. Patient follows in the office with Dr. Curry. We have been asked to see the patient in consultation for chest pain. Patient had recent prolonged hospitalization secondary to acute kidney injury, shock, liver injury, and nausea and vomiting. Patient states he has been feeling well since being discharged. He reports two days ago he was eating ice cream and drank some water and then began having abdominal pain. He reports having some nausea but no vomiting. He reports some chest pain as well that started at about 10am and lasted until 8am the following morning. He denies any radiation of the pain. Denies shortness of breath. He reports the pain is worse with deep inspiration. Patient underwent cardiac catheterization February 2020 revealing a chronically occluded RCA, extensive cizj-fh-upqer collaterals, and mild to moderate coronary artery disease involving the LAD and circumflex. Echocardiogram completed in March 2020 revealed ejection fraction 25-30%, moderate mitral regurgitation and moderate global hypokinesis of LV 04/19/2020 Patient examined this morning at the bedside. Patient underwent gallbladder ultrasound yesterday revealing evidence of gallbladder sludge, without gallbladder wall thickening or evidence of sonographic Lovelace sign. Patient denies abdominal pain this morning. He denies nausea or vomiting. Denies chest pain or pressure. Blood pressure 99/63. Heart rate in the 70s. He is on room air with oxygen saturations greater than 92%. He is afebrile. 04/20/2020 Patient examined this morning at the bedside. Patient denies chest pain or pressure. Denies shortness of breath. Denies abdominal pain. Vital signs are stable. PHYSICAL EXAM: VITAL SIGNS: Reviewed. GENERAL: Well-developed in no acute distress. HEENT: Head is normocephalic. Pupils are equal, round. Sclerae anicteric. Mucous membranes of the mouth are moist. Neck supple. No JVD or thyromegaly LUNGS: Respirations even and unlabored. Lungs diminished bilaterally. HEART: Regular rate and rhythm. S1 and S2 heard. Systolic murmur noted. EXTREMITIES: Normal range of motion. No clubbing or cyanosis. Peripheral pulses intact. No lower extremity edema ASSESSMENT: 1. Abdominal pain, gallbladder ultrasound revealing sludge, acute cholecystitis per general surgery 2. Chest pain, atypical, troponin negative x 3 3. Coronary artery disease, s/p cardiac cath February 2020, revealing chronically occluded RCA, extensive fkiw-ki-yhlxj collaterals, and mild to moderate coronary artery disease involving the LAD and circumflex 4. Ischemic cardiomyopathy, ejection fraction 25-30% 5. Chronic systolic congestive heart failure, currently euvolemic 6. Paroxysmal atrial fibrillation, on long-term anticoagulation with Eliquis 7. History of ventricular tachycardia with previous ICD implantation 8. Recent prolonged hospitalization secondary to acute liver injury, coagulopathy, and CHF PLAN: Eliquis remains on hold. Resume postoperatively when cleared with general surgery Patient scheduled for laparoscopic cholecystectomy today Patient is high risk for surgical intervention. However, there are no absolute contraindications to undergo surgery from a cardiac standpoint Further recommendations pending patient's course Nurse practitioner note has been reviewed by physician. Signing provider agrees with the documented findings, assessment, and plan of care. Objective - Vital Signs Vital signs: Vital Signs Temp 97.5 F L 04/20/20 12:03 Pulse 90 04/20/20 12:03 Resp 20 04/20/20 12:03 BP 105/69 04/20/20 12:03 Pulse Ox 93 L 04/20/20 12:03 Intake & Output 04/19/20 04/20/20 04/20/20 18:59 06:59 18:59 Output Total 401 500 Balance -401 -500 Output: Urine 400 500 Emesis 1 Other: Voiding Method Urinal # Voids 1 2 1 # Bowel Movements 1 - Labs CBC & Chem 7: 04/20/20 04:28 04/20/20 04:28 Labs: Abnormal Lab Results - Last 24 Hours (Table) 04/20/20 04/20/20 Range/Units 04:28 04:28 Hgb 12.7 L (13.0-17.5) gm/dL RDW 21.2 H (11.5-15.5) % Sodium 127 L (137-145) mmol/L Chloride 88 L (98-107) mmol/L Glucose 141 H (74-99) mg/dL Calcium 8.2 L (8.4-10.2) mg/dL
[2020-04-20] MEDS ORDERED: ONDANSETRON 4 MG/2 ML VIAL ONE (12:32)
[2020-04-20] MEDS ORDERED: DEXAMETHASONE SOD PHOSPHATE 4 MG/ML 1 ML VIAL IV ONE (12:36)
[2020-04-20] MEDS ORDERED: ONDANSETRON 4 MG/2 ML VIAL IVP ONE (12:36)
[2020-04-20 13:54] LABS: African American GFR (CKD) 66 (>60 ml/min/1.73 sqM); Anion Gap 9 mmol/L; Blood Urea Nitrogen 23 mg/dL (9-20); Calcium 8.3 mg/dL (8.4-10.2); Carbon Dioxide 28 mmol/L (22-30); Chloride 90 mmol/L (98-107); Glucose 152 mg/dL (74-99); Non-African American GFR(CKD) 57 (>60 ml/min/1.73 sqM); Potassium 4.7 mmol/L (3.5-5.1); Sodium 127 mmol/L (137-145)
[2020-04-20] MEDS ORDERED: SODIUM CHLORIDE TAB 1 GM TAB PO STA (15:22)
[2020-04-20] MEDS: POTASSIUM CHLORIDE ER 20 MEQ TAB.ER PO SCH (15:46)
[2020-04-20] MEDS: FUROSEMIDE 80 MG TAB PO SCH ×2 (15:46→15:53)
[2020-04-20] MEDS: SODIUM CHLORIDE 0.9% 1,000 ML IV SCH ×2 (15:54→19:03)
--- NOTE | 2020-04-20 16:29 | P.PN ---
Progress Note - Text Progress Note Date: 04/20/20 Patient was scheduled for laparoscopic cholestatic her symptomatic cholelithiasis today. However his sodium is 127. Patient surgery week canceled and rescheduled for tomorrow.
[2020-04-20] MEDS: ATORVASTATIN 40 MG TAB PO SCH (19:03)
[2020-04-20] MEDS ORDERED: SODIUM CHLORIDE TAB 1 GM TAB PO ONE (22:00)
--- NOTE | 2020-04-20 23:05 | P.PN ---
Progress Note - Text Progress Note Date: 04/20/20 Presenting complaint Chest pain: Interval course: Patient was recently in the hospital with ischemic colitis with resultant hypotension lactic acidosis ischemic hepatitis, acute CHF exacerbation was admitted to the ICU. Now presented with chest pain. Found to be atypical. Negative troponins. Ultrasound of the abdomen showed gallbladder sludge. Suspicion for acute cholecystitis. Followed by surgery. No history of carotid artery disease. Known EF of 30-35%. Also atrial fibrillation, hyperlipidemia, AICD Today-sitting up in bed, comfortable. Patient was scheduled for surgery. Sodium was 127. Anesthesia postponed for the same. Review of systems: Was done for constitutional, cardiovascular, GI, pulmonary. relevant finding as above Active Medications Acetaminophen (Acetaminophen Tab 325 Mg Tab) 650 mg PO Q6HR PRN PRN Reason: Fever and/ or Pain Last Admin: 04/18/20 00:31 Dose: 650 mg Documented by: Al Hydroxide/Mg Hydroxide (Mag Hydrox/Al Hydrox/Simeth 30 Ml Cup) 30 ml PO Q4HR PRN PRN Reason: GI Upset Last Admin: 04/18/20 00:31 Dose: 30 ml Documented by: Atorvastatin Calcium (Atorvastatin 40 Mg Tab) 40 mg PO HS [facility] Last Admin: 04/20/20 19:03 Dose: 40 mg Documented by: Furosemide (Furosemide 80 Mg Tab) 80 mg PO BID@0900,1600 [facility] Last Admin: 04/20/20 15:53 Dose: 80 mg Documented by: Sodium Chloride (Saline 0.9%) 1,000 mls @ 100 mls/hr IV .Q10H [facility] Last Admin: 04/20/20 19:03 Dose: 100 mls/hr Documented by: Lidocaine HCl (Lidocaine 1% (10mg/Ml) For Iv Start) 0.1 ml INTRADERMA PER PROTOCOL PRN PRN Reason: IV Start Metoprolol Succinate (Metoprolol Succinate (Er) 25 Mg Tab.Er.24h) 25 mg PO DAILY [facility] Last Admin: 04/20/20 10:28 Dose: 25 mg Documented by: Midodrine (Midodrine 5 Mg Tab) 5 mg PO AC-TID [facility] Last Admin: 04/20/20 18:10 Dose: Not Given Documented by: Nitroglycerin (Nitroglycerin Sl Tabs 0.4 Mg Tab) 0.4 mg SUBLINGUAL Q5M PRN PRN Reason: Chest Pain Last Admin: 04/17/20 20:06 Dose: 0.4 mg Documented by: Pantoprazole Sodium (Pantoprazole 40 Mg Tablet) 40 mg PO DAILY@0730 [facility] Last Admin: 04/20/20 10:28 Dose: 40 mg Documented by: Potassium Chloride (Potassium Chloride Er 20 Meq Tab.Er) 20 meq PO DAILY [facility] Last Admin: 04/20/20 15:46 Dose: Not Given Documented by: On examination: VITAL SIGNS: 97.5, 90, 20, 105/69, 93% room air GENERAL APPEARANCE: . Lying in bed, not in distress. HEENT: Normal external appearance of nose and ear. Oral cavity normal EYES: Pupils equal. Conjunctiva normal. NECK: JVD not raised. Mass not palpable. RESPIRATORY: Respiratory effort normal. Lungs clear to auscultation. CARDIOVASCULAR: Heart sounds irregular. No edema. ABDOMEN: Soft. Liver and spleen not palpable. No tenderness. No mass palpable. PSYCHIATRY: Alert and oriented x3. Mood and affect normal. Investigations: White count 8.6 hemoglobin 12.7 platelets 298 sodium 127 potassium 4.7 creatinine 1.26 Coronavirus [PCR]-not detected EKG tracing-left bundle-branch block pattern Assessment: -Acute cholecystitis, pending surgery -Hyponatremia, suspect hypervolemia from CHF. -Chest pain-felt to be noncardiac -Coronary artery disease with cardiac cath in February 2020 revealing chronically occluded RCA extensive [id number] collaterals etc. -Chronic congestive heart failure from systolic dysfunction EF 25-30% -Paroxysmal atrial fibrillation chronically on eliquis -AICD for ventricular tachycardia Plan: -We'll be careful with patient's sodium level given that he has chronic CHF. Anesthesia would like the sodium to be higher. We'll put the patient on fluid restriction. Hold off free fluids. Give salt tablet today being careful about the vascular status. Recheck BMP in the morning. Patient medically stable to proceed for surgery. Discussed with Dr. Farah in the evening.
[2020-04-21 06:42] LABS: African American GFR (CKD) 51 (>60 ml/min/1.73 sqM); Anion Gap 10 mmol/L; Blood Urea Nitrogen 29 mg/dL (9-20); Calcium 8.4 mg/dL (8.4-10.2); Carbon Dioxide 26 mmol/L (22-30); Chloride 92 mmol/L (98-107); Glucose 146 mg/dL (74-99); Non-African American GFR(CKD) 44 (>60 ml/min/1.73 sqM); Potassium 4.9 mmol/L (3.5-5.1); Sodium 128 mmol/L (137-145)
[2020-04-21] MEDS: FUROSEMIDE 80 MG TAB PO SCH (08:06)
[2020-04-21] MEDS: METOPROLOL SUCCINATE (ER) 25 MG TAB.ER.24H PO SCH (08:06)
[2020-04-21] MEDS: PANTOPRAZOLE 40 MG TABLET PO SCH (08:06)
[2020-04-21] MEDS: MIDODRINE 5 MG TAB PO SCH ×3 (08:06→18:01)
[2020-04-21] MEDS: POTASSIUM CHLORIDE ER 20 MEQ TAB.ER PO SCH (08:06)
[2020-04-21 08:22] LABS: Glucose,Whole Blood 140 mg/dL (75-99)
[2020-04-21] MEDS: ONDANSETRON 4 MG/2 ML VIAL IVP PRN (08:29)
--- NOTE | 2020-04-21 10:16 | P.PN ---
Subjective Progress Note Date: 04/21/20 CHIEF COMPLAINT: Chest pain HISTORY OF PRESENT ILLNESS: 04/18/2020 This is a 70-year-old male with a past medical history significant for coronary artery disease, ischemic cardiomyopathy, atrial fibrillation, and ventricular tachycardia with previous ICD implantation. Patient follows in the office with Dr. Curry. We have been asked to see the patient in consultation for chest pain. Patient had recent prolonged hospitalization secondary to acute kidney injury, shock, liver injury, and nausea and vomiting. Patient states he has been feeling well since being discharged. He reports two days ago he was eating ice cream and drank some water and then began having abdominal pain. He reports having some nausea but no vomiting. He reports some chest pain as well that started at about 10am and lasted until 8am the following morning. He denies any radiation of the pain. Denies shortness of breath. He reports the pain is worse with deep inspiration. Patient underwent cardiac catheterization February 2020 revealing a chronically occluded RCA, extensive rboe-qf-zteml collaterals, and mild to moderate coronary artery disease involving the LAD and circumflex. Echocardiogram completed in March 2020 revealed ejection fraction 25-30%, moderate mitral regurgitation and moderate global hypokinesis of LV 04/19/2020 Patient examined this morning at the bedside. Patient underwent gallbladder ultrasound yesterday revealing evidence of gallbladder sludge, without gallbladder wall thickening or evidence of sonographic Lovelace sign. Patient denies abdominal pain this morning. He denies nausea or vomiting. Denies chest pain or pressure. Blood pressure 99/63. Heart rate in the 70s. He is on room air with oxygen saturations greater than 92%. He is afebrile. 04/20/2020 Patient examined this morning at the bedside. Patient denies chest pain or pressure. Denies shortness of breath. Denies abdominal pain. Vital signs are stable. 04/21/2020 Patient examined this morning at the bedside. He denies chest pain or pressure. He denies shortness of breath. He reports feeling nauseous this morning. Patient was scheduled for lap or skeptical as acne yesterday however was canceled due to hyponatremia of 127. Patient's sodium this morning 128. Patient's creatinine increased today to 1.58, up from 1.26. He is currently on Lasix 80 mg PO BID. PHYSICAL EXAM: VITAL SIGNS: Reviewed. GENERAL: Well-developed in no acute distress. HEENT: Head is normocephalic. Pupils are equal, round. Sclerae anicteric. Mucous membranes of the mouth are moist. Neck supple. No JVD or thyromegaly LUNGS: Respirations even and unlabored. Lungs diminished bilaterally. HEART: Regular rate and rhythm. S1 and S2 heard. Systolic murmur noted. EXTREMITIES: Normal range of motion. No clubbing or cyanosis. Peripheral pulses intact. No lower extremity edema ASSESSMENT: 1. Abdominal pain, gallbladder ultrasound revealing sludge, acute cholecystitis per general surgery 2. Chest pain, atypical, troponin negative x 3 3. Coronary artery disease, s/p cardiac cath February 2020, revealing chronically occluded RCA, extensive kovg-fg-usabj collaterals, and mild to moderate coronary artery disease involving the LAD and circumflex 4. Ischemic cardiomyopathy, ejection fraction 25-30% 5. Chronic systolic congestive heart failure, currently euvolemic 6. Paroxysmal atrial fibrillation, on long-term anticoagulation with Eliquis 7. History of ventricular tachycardia with previous ICD implantation 8. Recent prolonged hospitalization secondary to acute liver injury, coagulopathy, and CHF 9. Acute kidney injury PLAN: Hold Lasix today. Resume oral Lasix tomorrow at a lower dose of 40 mg daily Monitor kidney function Eliquis remains on hold. Resume postoperatively when cleared with general surgery Patient scheduled for laparoscopic cholecystectomy today Patient is high risk for surgical intervention. However, there are no absolute contraindications to undergo surgery from a cardiac standpoint Further recommendations pending patient's course Nurse practitioner note has been reviewed by physician. Signing provider agrees with the documented findings, assessment, and plan of care. Objective - Vital Signs Vital signs: Vital Signs Temp 97.7 F 04/21/20 08:00 Pulse 88 04/21/20 08:00 Resp 18 04/21/20 08:00 BP 107/75 04/21/20 08:00 Pulse Ox 94 L 04/21/20 08:00 Intake & Output 04/20/20 04/21/20 04/21/20 18:59 06:59 18:59 Intake Total 382 1200 Balance 382 1200 Intake: IV 160 Lactated Ringers 1,000 ml 160 @ 20 mls/hr IV .Q24H [facility] Rx#:[id number] Intake, IV Titration 1200 Amount Sodium Chloride 0.9% 1, 1200 000 ml @ 100 mls/hr IV . Q10H [facility] Rx#:[id number] Oral 222 Other: Voiding Method Urinal Urinal # Voids 1 4 - Labs CBC & Chem 7: 04/20/20 04:28 04/21/20 05:36 Labs: Abnormal Lab Results - Last 24 Hours (Table) 04/20/20 04/21/20 04/21/20 Range/Units 13:29 05:36 08:16 Sodium 127 L 128 L (137-145) mmol/L Chloride 90 L 92 L (98-107) mmol/L BUN 23 H 29 H (9-20) mg/dL Creatinine 1.26 H 1.58 H (0.66-1.25) mg/dL Glucose 152 H 146 H (74-99) mg/dL POC Glucose (mg/dL) 140 H (75-99) mg/dL Calcium 8.3 L (8.4-10.2) mg/dL
--- NOTE | 2020-04-21 10:46 | P.NPCON ---
History of Present Illness - Reason for Consult acute renal failure, hyponatremia - History of Present Illness Reason for consultation: Acute kidney injury and hyponatremia History of present illness: Patient is a 70-year-old male seen in renal consultation for acute kidney injury and hyponatremia. Creatinine was in the range of 1-1.1 this admission and is up to 1.58 today. He was maintained on Lasix 80 mg twice daily and was decreased to 40 mg once daily today. He is also receiving normal saline at 100 mL an hour. Additionally his sodium level was 130 on admission and did come up to 132 but then dropped to 127. He received sodium chloride tablets yesterday and it is 128 today. No edema. No chest pain or shortness of breath. Currently on room air. Good urine output. No hematuria or dysuria. Patient has systolic CHF with ejection fraction of 25-30% with moderate mitral regurgitation. Patient was admitted to the hospital in March 2020 with CHF exacerbation. Creatinine during that admission and peaked at 2.38 as of 04/10/2020 and gradually improved and was down to as low as 1.0 as of 04/19/2020. Patient states he was taking Lasix at home. No history of diabetes. Patient has symptomatic cholelithiasis and is awaiting laparoscopic cholecystectomy. Surgery is on hold due to hyponatremia. Vital signs are stable. General: The patient appeared well nourished and normally developed. HEENT: Head exam is unremarkable. Neck is without jugular venous distension. LUNGS: Breath sounds decreased. HEART: Rate and Rhythm are regular. ABDOMEN: Soft, generalized tenderness present. EXTREMITITES: No edema. Past Medical History Past Medical History: Atrial Fibrillation, Coronary Artery Disease (CAD), Hyperlipidemia, Hypertension, Myocardial Infarction (ME), Pneumonia Additional Past Medical History / Comment(s): X3 ME'S, ULCER YEARS AGO, bradycardia Last Myocardial Infarction Date:: 2004 History of Any Multi-Drug Resistant Organisms: None Reported Past Surgical History: AICD, Cardiac Ablation, Heart Catheterization With Stent, Orthopedic Surgery, Pacemaker Additional Past Surgical History / Comment(s): CARDIOVERSION, HEART STENTS X7, cardiac ablation x 2 in the past and again om 12-05-15, rt wrist surgery after injury Past Anesthesia/Blood Transfusion Reactions: No Reported Reaction Additional Past Anesthesia/Blood Transfusion Reaction / Comment(s): NEVER HAS HAD GENERAL ANESTHESIA Date of Last Stent Placement:: 2004 Type of Cardiac Device: AICD Device Placement Date:: 2015 Past Psychological History: No Psychological Hx Reported Smoking Status: Former smoker Past Alcohol Use History: None Reported Past Drug Use History: None Reported - Past Family History Father Additional Family Medical History / Comment(s): DAD HAD PACER BUT NO OTHER HX KNOWN Mother Family Medical History: No Reported History Additional Family Medical History / Comment(s): pt stated does'nt know medical hx on parents. Medications and Allergies Home Medications Medication Instructions Recorded Confirmed Type Metoprolol Succinate (ER) [Toprol 25 mg PO DAILY 03/11/20 04/17/20 History XL] Apixaban [Eliquis] 5 mg PO BID #60 tab 04/05/20 04/17/20 Rx Furosemide [Lasix] 40 mg PO Q48H #30 tab 04/12/20 04/17/20 Rx Midodrine [ProAmatine] 5 mg PO AC-TID #90 tab 04/12/20 04/17/20 Rx Omeprazole [PriLOSEC] 40 mg PO BID #60 cap 04/12/20 04/17/20 Rx Allergies Allergy/AdvReac Type Severity Reaction Status Date / Time No Known Allergies Allergy Verified 04/17/20 11:24 Physical Exam Vitals: Vital Signs Temp Pulse Resp BP Pulse Ox 04/21/20 08:00 97.7 F 88 18 107/75 94 L 04/21/20 02:00 97.6 F 89 18 104/72 93 L 04/20/20 19:07 97.5 F L 80 18 99/66 92 L 04/20/20 14:00 97.5 F L 108 H 20 104/73 95 04/20/20 12:03 97.5 F L 90 20 105/69 93 L Intake and Output 04/20/20 04/21/20 04/21/20 22:59 06:59 14:59 Intake Total 382 1200 Balance 382 1200 Intake: IV 160 Lactated Ringers 1,000 ml 160 @ 20 mls/hr IV .Q24H BRENT Rx#:[id number] Intake, IV Titration 1200 Amount Sodium Chloride 0.9% 1, 1200 000 ml @ 100 mls/hr IV . Q10H BRENT Rx#:[id number] Oral 222 Other: Voiding Method Urinal # Voids 1 4 Results - Lab Results Most recent lab results Calcium 8.4 mg/dL (8.4-10.2) 04/21/20 05:36 Magnesium 2.2 mg/dL (1.6-2.3) 04/20/20 04:28 04/20/20 04:28 04/21/20 05:36 Assessment and Plan Plan: Assessment: 1. Acute kidney injury mostly prerenal secondary to diuresis. Baseline creatinine near 1 and up to 1.58 today. 2. Chronic systolic CHF with ejection fraction of 25-30%. Currently compensated. 3. Hyponatremia. Appears euvolemic. Poor solute intake. No significant improvement with normal saline. 4. Chronic hypotension maintained on midodrine. 5. Symptomatic cholelithiasis. Surgery following. Plan: Hep-Lock IV fluids. Stop Lasix. Samsca 15 mg once today. Repeat sodium level this evening. Check serum and urine osmolality and urine sodium. Continue to monitor renal function and urine output. Thank you for the consultation. I will continue to follow the patient with you during his hospital stay.
[2020-04-21] MEDS ORDERED: TOLVAPTAN 15 MG 1/2 TABLET PO ONE (11:00)
--- NOTE | 2020-04-21 13:59 | P.PN ---
Subjective Progress Note Date: 04/21/20 CHIEF COMPLAINT: Chest pain HISTORY OF PRESENT ILLNESS: Patient seen and examined with Dr. Farah. Mimi sewlel was scheduled for lap scopic cholecystectomy today. His sodium again was low at 128 and surgery was canceled again today. Patient is being evaluated by nephrology for the hyponatremia and acute kidney injury. Afebrile creatinine is up to 1.58 PHYSICAL EXAM: VITAL SIGNS: Reviewed. GENERAL: Well-developed in no acute distress. HEENT: No sclera icterus. Extraocular movements grossly intact. Moist buccal mucosa. Head is atraumatic, normocephalic. ABDOMEN: Soft. Nondistended. NEUROLOGIC: Alert and oriented. Cranial nerves II through XII grossly intact. ASSESSMENT: 1. Symptomatic cholelithiasis PLAN: -Patient is tentatively scheduled for laparoscopic cholecystectomy tomorrow, 04/22/[address] Farah -Keep Cariis on hold -Okay for low-fat diet today and then nothing by mouth after midnight -Follow up on labs in a.m. Physician Technical Data Analyst note has been reviewed by physician. Signing provider agrees with the documented findings, assessment, and plan of care. Objective - Vital Signs Vital signs: Vital Signs Temp 97.7 F 04/21/20 08:00 Pulse 88 04/21/20 08:00 Resp 18 04/21/20 08:00 BP 107/75 04/21/20 08:00 Pulse Ox 94 L 04/21/20 08:00 Intake & Output 04/20/20 04/21/20 04/21/20 18:59 06:59 18:59 Intake Total 382 1200 Balance 382 1200 Intake: IV 160 Lactated Ringers 1,000 ml 160 @ 20 mls/hr IV .Q24H BRENT Rx#:[id number] Intake, IV Titration 1200 Amount Sodium Chloride 0.9% 1, 1200 000 ml @ 100 mls/hr IV . Q10H BRENT Rx#:[id number] Oral 222 Other: Voiding Method Urinal Urinal # Voids 1 4 - Labs CBC & Chem 7: 04/20/20 04:28 04/21/20 05:36 Labs: Abnormal Lab Results - Last 24 Hours (Table) 04/20/20 04/21/20 04/21/20 Range/Units 13:29 05:36 08:16 Sodium 127 L 128 L (137-145) mmol/L Chloride 90 L 92 L (98-107) mmol/L BUN 23 H 29 H (9-20) mg/dL Creatinine 1.26 H 1.58 H (0.66-1.25) mg/dL Glucose 152 H 146 H (74-99) mg/dL POC Glucose (mg/dL) 140 H (75-99) mg/dL Calcium 8.3 L (8.4-10.2) mg/dL
--- NOTE | 2020-04-21 19:11 | P.PN ---
Progress Note - Text Progress Note Date: 04/21/20 Presenting complaint Chest pain: Interval course: Patient was recently in the hospital with ischemic colitis with resultant hypotension lactic acidosis ischemic hepatitis, acute CHF exacerbation was admitted to the ICU. Now presented with chest pain. Found to be atypical. Negative troponins. Ultrasound of the abdomen showed gallbladder sludge. Suspicion for acute cholecystitis. Followed by surgery. No history of carotid artery disease. Known EF of 30-35%. Also atrial fibrillation, hyperlipidemia, AICD Today-surgery was put poor yesterday for a sodium being for 127. This morning patient did vomit once. Abdominal pain. Review of systems: Was done for constitutional, cardiovascular, GI, pulmonary. relevant finding as above Active Medications Acetaminophen (Acetaminophen Tab 325 Mg Tab) 650 mg PO Q6HR PRN PRN Reason: Fever and/ or Pain Last Admin: 04/18/20 00:31 Dose: 650 mg Documented by: Al Hydroxide/Mg Hydroxide (Mag Hydrox/Al Hydrox/Simeth 30 Ml Cup) 30 ml PO Q4HR PRN PRN Reason: GI Upset Last Admin: 04/18/20 00:31 Dose: 30 ml Documented by: Atorvastatin Calcium (Atorvastatin 40 Mg Tab) 40 mg PO HS [facility] Last Admin: 04/20/20 19:03 Dose: 40 mg Documented by: Lidocaine HCl (Lidocaine 1% (10mg/Ml) For Iv Start) 0.1 ml INTRADERMA PER PROTOCOL PRN PRN Reason: IV Start Metoprolol Succinate (Metoprolol Succinate (Er) 25 Mg Tab.Er.24h) 25 mg PO DAILY [facility] Last Admin: 04/21/20 08:06 Dose: 25 mg Documented by: Midodrine (Midodrine 5 Mg Tab) 5 mg PO AC-TID [facility] Last Admin: 04/21/20 18:01 Dose: 5 mg Documented by: Nitroglycerin (Nitroglycerin Sl Tabs 0.4 Mg Tab) 0.4 mg SUBLINGUAL Q5M PRN PRN Reason: Chest Pain Last Admin: 04/17/20 20:06 Dose: 0.4 mg Documented by: Ondansetron HCl (Ondansetron 4 Mg/2 Ml Vial) 4 mg IVP Q6HR PRN PRN Reason: Nausea And Vomiting Last Admin: 04/21/20 08:29 Dose: 4 mg Documented by: Pantoprazole Sodium (Pantoprazole 40 Mg Tablet) 40 mg PO DAILY@0730 [facility] Last Admin: 04/21/20 08:06 Dose: 40 mg Documented by: Potassium Chloride (Potassium Chloride Er 20 Meq Tab.Er) 20 meq PO DAILY [facility] Last Admin: 04/21/20 08:06 Dose: 20 meq Documented by: On examination: VITAL SIGNS: 97.7, 88, 18, 107/75, 94% room air GENERAL APPEARANCE: Sitting up, tired HEENT: Normal external appearance of nose and ear. Oral cavity normal EYES: Pupils equal. Conjunctiva normal. NECK: JVD not raised. Mass not palpable. RESPIRATORY: Respiratory effort normal. Lungs clear to auscultation. CARDIOVASCULAR: Heart sounds irregular. No edema. ABDOMEN: Soft. Liver and spleen not palpable. Mild tenderness no guarding rigidity. No mass palpable. PSYCHIATRY: Alert and oriented x3. Mood and affect normal. Investigations: April 21: Sodium 128 bun 29 creatinine 1.58. Serum osmolality 282 White count 8.6 hemoglobin 12.7 platelets 298 sodium 127 potassium 4.7 creatinine 1.26 Coronavirus [PCR]-not detected EKG tracing-left bundle-branch block pattern Assessment: -Acute cholecystitis, pending surgery -Hyponatremia, suspect hypervolemia from CHF. Normal osmolar. Slow to respond -Chest pain-felt to be noncardiac -Coronary artery disease with cardiac cath in February 2020 revealing chronically occluded RCA extensive [id number] collaterals etc. -Chronic congestive heart failure from systolic dysfunction EF 25-30% -Paroxysmal atrial fibrillation chronically on eliquis -AICD for ventricular tachycardia Plan: Patient's sodium only budged little with fluid restrictions oral tablets. Discussed with Dr. Farah. Per anesthesia they will likely to be 1:30. Spoke to Dr. Benavidez from nephrology. He did order Samsca. 50 mg. Late in the evening sodium came up to 132. Discussed with the nurse Total time spent today was about 40 minutes with over 25 minutes of discussion.
[2020-04-21] MEDS: ACETAMINOPHEN TAB 325 MG TAB PO PRN (19:42)
[2020-04-21] MEDS: ATORVASTATIN 40 MG TAB PO SCH (19:43)
[2020-04-22 06:45] LABS: African American GFR (CKD) 27 (>60 ml/min/1.73 sqM); Anion Gap 26 mmol/L; Blood Urea Nitrogen 44 mg/dL (9-20); Calcium 8.2 mg/dL (8.4-10.2); Carbon Dioxide 11 mmol/L (22-30); Chloride 93 mmol/L (98-107); Glucose 143 mg/dL (74-99); Magnesium 2.3 mg/dL (1.6-2.3); Non-African American GFR(CKD) 24 (>60 ml/min/1.73 sqM); Potassium 5.7 mmol/L (3.5-5.1); Sodium 130 mmol/L (137-145)
[2020-04-22 07:02] LABS: Anisocytosis Moderate; Basophils # (A) 0.1 k/uL (0-0.2); Basophils % (A) 0 %; Eosinophils % (A) 0 %; HCT 37.5 % (39.0-53.0); HGB 11.7 gm/dL (13.0-17.5); Hypochromasia Marked; Lymphocytes # (A) 1.7 k/uL (1.0-4.8); Lymphocytes % (A) 5 %; MCH 27.4 pg (25.0-35.0); MCHC 31.2 g/dL (31.0-37.0); MCV 87.8 fL (80.0-100.0); Mean Platelet Volume 10.2; Monocytes # (A) 2.6 k/uL (0-1.0); Monocytes % (A) 8 %; Neutrophils # (A) 27.2 k/uL (1.3-7.7); Neutrophils % (A) 86 %; Platelet Count 246 k/uL (150-450); Poikilocytosis Slight; RBC 4.27 m/uL (4.30-5.90); RDW 20.8 % (11.5-15.5); WBC 31.7 k/uL (3.8-10.6)
[2020-04-22 07:58] LABS: Polychromasia Present
[2020-04-22] MEDS: ONDANSETRON 4 MG/2 ML VIAL IVP PRN (08:11)
[2020-04-22] MEDS ORDERED: IOPAMIDOL CONTRAST (ORAL USE) VIAL PO PRN (08:37)
--- NOTE | 2020-04-22 08:37 | XR ---
EXAMINATION TYPE: XR chest 1V DATE OF EXAM: 04/22/2020 COMPARISON: Chest x-ray 04/17/2020 HISTORY: Shortness of breath TECHNIQUE: Single frontal view of the chest is obtained. FINDINGS: Findings are similar to prior exam. There is an air-filled structure partially visualized structure in the abdomen which may represent stomach or colon. IMPRESSION: No significant interval change. Possible effusion, atelectasis, edema, pneumonia, there are differences in technique. Findings in the abdomen are indeterminate.
[2020-04-22] MEDS ORDERED: DEXTROSE 50% SYRINGE 50 ML IVP STA (08:45)
[2020-04-22] MEDS ORDERED: SODIUM CHLORIDE 0.9% 1,000 ML IV SCH (08:45)
[2020-04-22] MEDS ORDERED: INSULIN REGULAR 100 UNIT/ML VIAL SQ ONE (09:00)
[2020-04-22] MEDS ORDERED: FUROSEMIDE 40 MG TAB PO SCH (09:00)
[2020-04-22] MEDS: PIPERACILLIN-TAZOBACTAM 3.375 GM in SODIUM CHLORIDE 0.9% 100 ML IVPB SCH ×2 (10:10→16:30)
[2020-04-22 10:22] LABS: Albumin 3.1 g/dL (3.5-5.0); Albumin/Globulin Ratio 0.9; Alkaline Phosphatase 205 U/L (38-126); Globulin 3.4 g/dL; Total Protein 6.5 g/dL (6.3-8.2)
--- NOTE | 2020-04-22 10:25 | P.PN ---
Subjective Progress Note Date: 04/22/20 CHIEF COMPLAINT: Chest pain HISTORY OF PRESENT ILLNESS: Patient is being followed in regards to his abdom inal pain and symptomatic cholelithiasis. This morning patient has had increased abdominal pain and distention. He is severely tender across his whole abdomen. He is been having nausea and dry heaves. No actual vomiting. He was initially scheduled for a laparoscopic cholecystectomy today. However, patient has become septic. White count elevated at 31.7 he's hypotensive BP 85/48, hypothermic temp 95 and has elevated lactic acid level 12.6. Patient also had increase in his creatinine up to 2.64 potassium 5.7 and sodium 130 PHYSICAL EXAM: VITAL SIGNS: Reviewed. GENERAL: Well-developed in no acute distress. HEENT: No sclera icterus. Extraocular movements grossly intact. Moist buccal mucosa. Head is atraumatic, normocephalic. ABDOMEN: Severe tenderness with light palpation. Patient has diffuse tenderness. Abdomen distended NEUROLOGIC: Alert and oriented. Cranial nerves II through XII grossly intact. ASSESSMENT: 1. Diffuse abdominal pain 2. Sepsis possible abdominal source 3. Symptomatic cholelithiasis 4. Acute kidney injury 5. Hyperkalemia 6. Hyponatremia PLAN: -Check stat computed tomography scan of the abdomen and pelvis with oral contrast -Patient given a 2 L fluid bolus -Increase IV fluids to normal saline at 125 mL per hour -Start IV Zosyn -Keep Eliquis on hold -Keep patient nothing by mouth -Correcting potassium with insulin and dextrose -Further recommendations forthcoming per surgeon Physician Production Analyst note has been reviewed by physician. Signing provider agrees with the documented findings, assessment, and plan of care. Objective - Vital Signs Vital signs: Vital Signs Temp 95 F L 04/22/20 08:00 Pulse 81 04/22/20 08:00 Resp 20 04/22/20 08:00 BP 85/48 04/22/20 08:00 Pulse Ox 94 L 04/22/20 08:00 Intake & Output 04/21/20 04/22/20 04/22/20 18:59 06:59 18:59 Output Total 201 Balance -201 Output: Urine 200 Emesis 1 Other: Voiding Method Urinal # Voids 1 - Labs CBC & Chem 7: 04/22/20 06:16 04/22/20 06:16 Labs: Abnormal Lab Results - Last 24 Hours (Table) 04/21/20 04/22/20 04/22/20 Range/Units 17:53 06:16 06:16 WBC 31.7 H (3.8-10.6) k/uL RBC 4.27 L (4.30-5.90) m/uL Hgb 11.7 L (13.0-17.5) gm/dL Hct 37.5 L (39.0-53.0) % RDW 20.8 H (11.5-15.5) % Neutrophils # 27.2 H (1.3-7.7) k/uL Monocytes # 2.6 H (0-1.0) k/uL Sodium 132 L 130 L (137-145) mmol/L Potassium 5.7 H (3.5-5.1) mmol/L Chloride 93 L (98-107) mmol/L Carbon Dioxide 11 L (22-30) mmol/L BUN 44 H (9-20) mg/dL Creatinine 2.64 H (0.66-1.25) mg/dL Glucose 143 H (74-99) mg/dL Plasma Lactic Acid Geoff (0.7-2.0) mmol/L Calcium 8.2 L (8.4-10.2) mg/dL 04/22/20 Range/Units 09:02 WBC (3.8-10.6) k/uL RBC (4.30-5.90) m/uL Hgb (13.0-17.5) gm/dL Hct (39.0-53.0) % RDW (11.5-15.5) % Neutrophils # (1.3-7.7) k/uL Monocytes # (0-1.0) k/uL Sodium (137-145) mmol/L Potassium (3.5-5.1) mmol/L Chloride (98-107) mmol/L Carbon Dioxide (22-30) mmol/L BUN (9-20) mg/dL Creatinine (0.66-1.25) mg/dL Glucose (74-99) mg/dL Plasma Lactic Acid Geoff 12.6 H* (0.7-2.0) mmol/L Calcium (8.4-10.2) mg/dL
[2020-04-22 10:29] LABS: ALT 144 U/L (4-49); AST 544 U/L (17-59)
[2020-04-22 11:20] LABS: Glucose,Whole Blood 227 mg/dL (75-99)
--- NOTE | 2020-04-22 11:34 | CT ---
EXAMINATION TYPE: CT abdomen pelvis wo con DATE OF EXAM: 04/22/2020 HISTORY: Generalized abdominal pain and low blood pressure. CT DLP: 479.7 mGycm. Automated Exposure Control for Dose Reduction was Utilized. TECHNIQUE: CT scan of the abdomen and pelvis is performed with oral without IV contrast. COMPARISON: CT abdomen and pelvis March 26, 2020 FINDINGS: Within the limitations of a non-contrast study, the following observations are made. Exam slightly degraded by patient motion artifact. LUNG BASES: Mild cardiomegaly with pacemaker/defibrillator device is partially imaged similar to prio r. Partial visualization of at least moderate bilateral pleural effusions and associated compressive atelectasis similar to prior. Partial visualization of at least moderate three-vessel coronary artery calcification similar to prior. LIVER/GB: Stable somewhat small size to liver. PANCREAS: Mild generalized atrophy redemonstrated. SPLEEN: No significant abnormality is seen. ADRENALS: No significant abnormality is seen. KIDNEYS: No significant abnormality is seen. BOWEL: Oral contrast only extends into proximal jejunal loops in the upper to mid abdomen. No suspici ous small or large bowel dilatation. Mild to moderate wall thickening in the duodenum and jejunal loo ps. Normal-appearing appendix incidentally seen. GENITAL ORGANS: No gross abnormality seen. LYMPH NODES: No greater than 1cm abdominal or pelvic lymph nodes are appreciated. Mild haziness to th e mesenteric fat is redemonstrated in the mid abdomen with a few prominent but subcentimeter lymph no nick. OSSEOUS STRUCTURES: Slight underlying scoliotic curvature near lumbosacral junction. Moderate facet a rthropathy lower lumbar levels. OTHER: Moderate to severe calcified plaque of the aorta extends into branch vessels. IMPRESSION: Possible new mild to moderate acute enteritis involving duodenum and proximal jejunum, co rrelate clinically. No suspicious new focal intraperitoneal or retroperitoneal fluid collection.
[2020-04-22] MEDS ORDERED: SODIUM BICARB 8.4% 50 ML SYR (1 MEQ/ML) IV STA (11:54)
--- NOTE | 2020-04-22 11:56 | P.PN ---
Subjective Patient is seen in follow for acute kidney injury. Renal function worse. Patient also severely acidotic and potassium was on the higher side. Lactic acid elevated at 12.6. He did develop severe abdominal pain last night. CAT scan of the abdomen and pelvis done this morning revealed mild to moderate acute enteritis. No edema. Vital signs: Blood pressure in the lower side. General: The patient appeared well nourished and normally developed. HEENT: Head exam is unremarkable. Neck is without jugular venous distension. LUNGS: Breath sounds decreased. HEART: Rate and Rhythm are regular. ABDOMEN: Generalized tenderness. EXTREMITITES: No edema. Objective - Vital Signs Vital signs: Vital Signs Temp 95 F L 04/22/20 08:00 Pulse 81 04/22/20 08:00 Resp 20 04/22/20 08:00 BP 85/48 04/22/20 08:00 Pulse Ox 94 L 04/22/20 08:00 Intake & Output 04/21/20 04/22/20 04/22/20 18:59 06:59 18:59 Output Total 201 Balance -201 Output: Urine 200 Emesis 1 Other: Voiding Method Urinal # Voids 1 - Labs CBC & Chem 7: 04/22/20 06:16 04/22/20 06:16 Labs: Abnormal Lab Results - Last 24 Hours (Table) 04/21/20 04/22/20 04/22/20 Range/Units 17:53 06:16 06:16 WBC 31.7 H (3.8-10.6) k/uL RBC 4.27 L (4.30-5.90) m/uL Hgb 11.7 L (13.0-17.5) gm/dL Hct 37.5 L (39.0-53.0) % RDW 20.8 H (11.5-15.5) % Neutrophils # 27.2 H (1.3-7.7) k/uL Monocytes # 2.6 H (0-1.0) k/uL Sodium 132 L 130 L (137-145) mmol/L Potassium 5.7 H (3.5-5.1) mmol/L Chloride 93 L (98-107) mmol/L Carbon Dioxide 11 L (22-30) mmol/L BUN 44 H (9-20) mg/dL Creatinine 2.64 H (0.66-1.25) mg/dL Glucose 143 H (74-99) mg/dL POC Glucose (mg/dL) (75-99) mg/dL Plasma Lactic Acid Geoff (0.7-2.0) mmol/L Calcium 8.2 L (8.4-10.2) mg/dL Total Bilirubin 3.0 H (0.2-1.3) mg/dL AST 544 H (17-59) U/L ALT 144 H (4-49) U/L Alkaline Phosphatase 205 H (38-126) U/L Albumin 3.1 L (3.5-5.0) g/dL 04/22/20 04/22/20 Range/Units 09:02 11:18 WBC (3.8-10.6) k/uL RBC (4.30-5.90) m/uL Hgb (13.0-17.5) gm/dL Hct (39.0-53.0) % RDW (11.5-15.5) % Neutrophils # (1.3-7.7) k/uL Monocytes # (0-1.0) k/uL Sodium (137-145) mmol/L Potassium (3.5-5.1) mmol/L Chloride (98-107) mmol/L Carbon Dioxide (22-30) mmol/L BUN (9-20) mg/dL Creatinine (0.66-1.25) mg/dL Glucose (74-99) mg/dL POC Glucose (mg/dL) 227 H (75-99) mg/dL Plasma Lactic Acid Geoff 12.6 H* (0.7-2.0) mmol/L Calcium (8.4-10.2) mg/dL Total Bilirubin (0.2-1.3) mg/dL AST (17-59) U/L ALT (4-49) U/L Alkaline Phosphatase (38-126) U/L Albumin (3.5-5.0) g/dL Assessment and Plan Plan: Assessment: 1. Acute kidney injury secondary to ATN secondary to hypotension/sepsis - ?abdominal source. Creatinine 2.64 today. 2. Chronic systolic CHF with ejection fraction of 25-30%. Currently compensated. 3. Hyponatremia. Appears euvolemic. Poor solute intake. Status post msApril 21. Better. 4. Chronic hypotension maintained on midodrine. ?component of sepsis. 5. Symptomatic cholelithiasis. Surgery following. 6. Metabolic acidosis secondary to lactic acidosis and acute kidney injury. 7. Hyperkalemia secondary to acute kidney injury and metabolic acidosis. Plan: Patient will be transferred to the ICU. He is currently receiving 2 L of normal saline bolus. Start isotonic bicarbonate drip to be run at 75 mL an hour. 2 A of sodium bicarb IV push now. Repeat potassium level this afternoon. He is on Zosyn. Continue to monitor renal function and urine output. May need to be started on vasopressors.
--- NOTE | 2020-04-22 12:07 | P.CNPUL ---
History of Present Illness Consult date: 04/22/20 Requesting physician: Vinicio Murillo Reason for consult: abnormal CXR/CT, other Chief complaint: Chest and abdominal pain, sepsis. History of present illness: This is a 70-year-old male who presented to the emergency department on April 17, at 1020 in the morning. The patient's complaints include primarily chest and abdominal pain. It began the night prior about 12 hours earlier. It's sha rp constant consistent pain in the lower right chest area and right upper abdominal area. The patient denies any trauma to this area. The pain was so bad, he could not sleep. In addition, the patient does admit to being mildly short of breath. There are no fever or chills. He denied any nausea, vomiting, or diarrhea. The patient was recently inpatient for pulmonary edema and ascites. The patient was evaluated and discovered to have acute cholecystitis. The patient was to have surgery but apparently the sodium was low and so the surgery was canceled. I was up on the floor seeing other patients today, and the primary service asked me to see Mr. Obrien. They were concerned about sepsis . The patient was hypotensive, and hypothermic. In addition, his lactic acid had risen to above 12. For that reason, the patient was admitted to my list, the patient was transferred down to the intensive care unit for further evaluation and management. The patient's white count jumped up to 31.7, hemoglobin 11.7, hematocrit 37.5, and platelet count was normal. Sodium was 130, potassium 5.7, chloride 73, CO2 11, anion gap was 26, and BUN and creatinine were 44 and 2.64. These labs are consistent with a anion gap metabolic acidosis, secondary to renal failure and lactic acidemia. The lyssa ent's AST was 544, ALT 144, and alkaline phosphatase was 205. Bilirubin was elevated at 3.0. Chest x-ray today showed bilateral areas of atelectasis, pneumonia, edema, and effusions. CT of the abdomen and pelvis revealed evidence of moderate acute enteritis involving the duodenum and proximal jejunum, bilateral lower pleural effusions, and associated compressive atelectasis. The patient was only started on antibiotics today. Review of Systems REVIEW OF SYSTEMS: CONSTITUTIONAL: Weakness.] NEUROLOGIC: [ Negative.] HEENT: [ Negative.] CARDIAC: Chest pain. PULMONARY: Shortness of breath. GI: Abdominal pain, nausea. : [Negative.] RHEUMATOLOGIC: [ Negative.] IMMUNOLOGIC: [ Negative.] ENDOCRINE: [Negative. ] DERMATOLOGIC: [Negative.] Past Medical History Past Medical History: Atrial Fibrillation, Coronary Artery Disease (CAD), Hyperlipidemia, Hypertension, Myocardial Infarction (VA), Pneumonia Additional Past Medical History / Comment(s): X3 VA'S, ULCER YEARS AGO, bradycardia Last Myocardial Infarction Date:: 2004 History of Any Multi-Drug Resistant Organisms: None Reported Past Surgical History: AICD, Cardiac Ablation, Heart Catheterization With Stent, Orthopedic Surgery, Pacemaker Additional Past Surgical History / Comment(s): CARDIOVERSION, HEART STENTS X7, cardiac ablation x 2 in the past and again om 12-05-15, rt wrist surgery after injury Past Anesthesia/Blood Transfusion Reactions: No Reported Reaction Additional Past Anesthesia/Blood Transfusion Reaction / Comment(s): NEVER HAS HAD GENERAL ANESTHESIA Date of Last Stent Placement:: 2004 Type of Cardiac Device: AICD Device Placement Date:: 2015 Past Psychological History: No Psychological Hx Reported Smoking Status: Former smoker Past Alcohol Use History: None Reported Past Drug Use History: None Reported - Past Family History Father Additional Family Medical History / Comment(s): DAD HAD PACER BUT NO OTHER HX KNOWN Mother Family Medical History: No Reported History Additional Family Medical History / Comment(s): pt stated does'nt know medical hx on parents. Medications and Allergies Home Medications Medication Instructions Recorded Confirmed Type Metoprolol Succinate (ER) [Toprol 25 mg PO DAILY 03/11/20 04/17/20 History XL] Apixaban [Eliquis] 5 mg PO BID #60 tab 04/05/20 04/17/20 Rx Furosemide [Lasix] 40 mg PO Q48H #30 tab 04/12/20 04/17/20 Rx Midodrine [ProAmatine] 5 mg PO AC-TID #90 tab 04/12/20 04/17/20 Rx Omeprazole [PriLOSEC] 40 mg PO BID #60 cap 04/12/20 04/17/20 Rx Allergies Allergy/AdvReac Type Severity Reaction Status Date / Time No Known Allergies Allergy Verified 04/17/20 11:24 Physical Exam Osteopathic Statement: *. No significant issues noted on an osteopathic structural exam other than those noted in the History and Physical/Consult. Vitals: Vital Signs Temp Pulse Resp BP Pulse Ox 04/22/20 08:00 95 F L 81 18 85/48 94 L 04/22/20 02:00 94.6 F L 73 16 97/61 96 04/21/20 20:00 94.7 F L 93 18 90/60 94 L 04/21/20 13:58 94.9 F L 110 H 18 102/69 90 L Intake and Output 04/21/20 04/22/20 04/22/20 22:59 06:59 14:59 Output Total 200 1 Balance -200 -1 Output: Urine 200 Emesis 1 Other: Voiding Method Urinal # Voids 1 1 Moderately severe abdominal pain, oriented 3, lying on his right side, in a position. No supplemental oxygen. HEENT examination is grossly unremarkable. Mucous membranes are moist. No oral lesions. Neck supple. Full range of motion. No adenopathy thyromegaly or neck vein distention. Cardiovascular examination reveals regular rhythm rate. S1-S2 normal. No S3 or S4. No discernible murmur noted. Heart rate is 81 bpm. Lungs reveal bilateral rhonchi and lower lobe crackles. Breath sounds equal bilaterally. Abdomen very tender to touch, particularly in the area of the right upper quadrant. Extremities are intact. No cyanosis clubbing or edema. Skin is without rash or lesion. Neurologic examination is brief but nonfocal. Results - Laboratory Findings CBC and BMP: 04/22/20 06:16 04/22/20 06:16 PT/INR, D-dimer PT 12.0 sec (9.0-12.0) 04/17/20 10:53 INR 1.1 (<1.2) 04/17/20 10:53 Abnormal lab findings: Abnormal Labs 04/17/20 04/17/20 04/18/20 10:53 10:53 05:37 WBC 15.0 H RBC Hgb Hct MCV MCH RDW 20.4 H Immature Gran # Neutrophils # 10.7 H Neutrophils # (Manual) Monocytes # 1.2 H Monocytes # (Manual) Sodium 130 L 129 L Potassium Chloride 89 L 90 L Carbon Dioxide 32.0 H BUN 21 H Creatinine Glucose 169 H POC Glucose (mg/dL) Plasma Lactic Acid Geoff Calcium 8.4 L Total Bilirubin 1.8 H 1.9 H AST ALT Alkaline Phosphatase 292 H 240 H Total Protein 5.8 L Albumin 3.10 L Albumin/Globulin Ratio 1.15 L HDL Cholesterol 22.0 L 04/18/20 04/19/20 04/19/20 05:37 04:34 04:34 WBC 14.4 H 12.56 H RBC Hgb 12.0 L 12.0 L Hct 36.4 L 36.3 L MCV 79.3 L MCH 26.2 L RDW 20.5 H 23.1 H Immature Gran # 0.07 H Neutrophils # Neutrophils # (Manual) 9.79 H Monocytes # 1.47 H Monocytes # (Manual) 1.44 H Sodium 132 L Potassium 3.3 L Chloride 90 L Carbon Dioxide BUN Creatinine Glucose POC Glucose (mg/dL) Plasma Lactic Acid Geoff Calcium 8.1 L Total Bilirubin 1.8 H AST ALT Alkaline Phosphatase 225 H Total Protein 5.8 L Albumin 3.20 L Albumin/Globulin Ratio 1.23 L HDL Cholesterol 04/20/20 04/20/20 04/20/20 04:28 04:28 13:29 WBC RBC Hgb 12.7 L Hct MCV MCH RDW 21.2 H Immature Gran # Neutrophils # Neutrophils # (Manual) Monocytes # Monocytes # (Manual) Sodium 127 L 127 L Potassium Chloride 88 L 90 L Carbon Dioxide BUN 23 H Creatinine 1.26 H Glucose 141 H 152 H POC Glucose (mg/dL) Plasma Lactic Acid Geoff Calcium 8.2 L 8.3 L Total Bilirubin AST ALT Alkaline Phosphatase Total Protein Albumin Albumin/Globulin Ratio HDL Cholesterol 04/21/20 04/21/20 04/21/20 05:36 08:16 17:53 WBC RBC Hgb Hct MCV MCH RDW Immature Gran # Neutrophils # Neutrophils # (Manual) Monocytes # Monocytes # (Manual) Sodium 128 L 132 L Potassium Chloride 92 L Carbon Dioxide BUN 29 H Creatinine 1.58 H Glucose 146 H POC Glucose (mg/dL) 140 H Plasma Lactic Acid Geoff Calcium Total Bilirubin AST ALT Alkaline Phosphatase Total Protein Albumin Albumin/Globulin Ratio HDL Cholesterol 04/22/20 04/22/20 04/22/20 06:16 06:16 09:02 WBC 31.7 H RBC 4.27 L Hgb 11.7 L Hct 37.5 L MCV MCH RDW 20.8 H Immature Gran # Neutrophils # 27.2 H Neutrophils # (Manual) Monocytes # 2.6 H Monocytes # (Manual) Sodium 130 L Potassium 5.7 H Chloride 93 L Carbon Dioxide 11 L BUN 44 H Creatinine 2.64 H Glucose 143 H POC Glucose (mg/dL) Plasma Lactic Acid Geoff 12.6 H* Calcium 8.2 L Total Bilirubin 3.0 H AST 544 H ALT 144 H Alkaline Phosphatase 205 H Total Protein Albumin 3.1 L Albumin/Globulin Ratio HDL Cholesterol 04/22/20 11:18 WBC RBC Hgb Hct MCV MCH RDW Immature Gran # Neutrophils # Neutrophils # (Manual) Monocytes # Monocytes # (Manual) Sodium Potassium Chloride Carbon Dioxide BUN Creatinine Glucose POC Glucose (mg/dL) 227 H Plasma Lactic Acid Geoff Calcium Total Bilirubin AST ALT Alkaline Phosphatase Total Protein Albumin Albumin/Globulin Ratio HDL Cholesterol - Diagnostic Findings Chest x-ray: image reviewed Assessment and Plan Assessment: Sepsis, secondary to suspected acute cholecystitis/enteritis. Hypothermia, and hypotension, secondary to suspected sepsis. History of acute kidney injury. Hyponatremia. History of chronic atrial fibrillation. History of CAD, status post stent placement. History of hyperlipidemia. History of essential hypertension. History of myocardial infarction. History of pneumonia. History of previous cardiac ablation and AICD/PM placement. Plan: Plan dated 04/22/2020. The patient's transferred down to the intensive care unit. There, he will receive a warming blanket, and also fluids for hypotension. Additional recommendations and suggestions are forthcoming. The patient will also be monitored very closely, with daily blood work and x-rays. Additional recommendations and suggestions are forthcoming. He is likely not very stable for surgery at this time. Continue to follow. No additional recommendations are made. Prognosis is guarded. The patient was started on Zosyn today. Prior to this, the patient was not receiving any antibiotics. Time with Patient: Greater than 30
[2020-04-22] MEDS: MIDODRINE 5 MG TAB PO SCH ×3 (12:10→16:42)
--- NOTE | 2020-04-22 12:14 | P.PN ---
Subjective Progress Note Date: 04/22/20 CHIEF COMPLAINT: Chest pain HISTORY OF PRESENT ILLNESS: 04/18/2020 This is a 70-year-old male with a past medical history significant for coronary artery disease, ischemic cardiomyopathy, atrial fibrillation, and ventricular tachycardia with previous ICD implantation. Patient follows in the office with Dr. Curry. We have been asked to see the patient in consultation for chest pain. Patient had recent prolonged hospitalization secondary to acute kidney injury, shock, liver injury, and nausea and vomiting. Patient states he has been feeling well since being discharged. He reports two days ago he was eating ice cream and drank some water and then began having abdominal pain. He reports having some nausea but no vomiting. He reports some chest pain as well that started at about 10am and lasted until 8am the following morning. He denies any radiation of the pain. Denies shortness of breath. He reports the pain is worse with deep inspiration. Patient underwent cardiac catheterization February 2020 revealing a chronically occluded RCA, extensive [id number] collaterals, and mild to moderate coronary artery disease involving the LAD and circumflex. Echocardiogram completed in March 2020 revealed ejection fraction 25-30%, moderate mitral regurgitation and moderate global hypokinesis of LV 04/19/2020 Patient examined this morning at the bedside. Patient underwent gallbladder ultrasound yesterday revealing evidence of gallbladder sludge, without gallbladder wall thickening or evidence of sonographic Lovelace sign. Patient denies abdominal pain this morning. He denies nausea or vomiting. Denies chest pain or pressure. Blood pressure 99/63. Heart rate in the 70s. He is on room air with oxygen saturations greater than 92%. He is afebrile. 04/20/2020 Patient examined this morning at the bedside. Patient denies chest pain or pressure. Denies shortness of breath. Denies abdominal pain. Vital signs are stable. 04/21/2020 Patient examined this morning at the bedside. He denies chest pain or pressure. He denies shortness of breath. He reports feeling nauseous this morning. Patient was scheduled for lap payal yesterday however was canceled due to hyponatremia of 127. Patient's sodium this morning 128. Patient's creatinine increased today to 1.58, up from 1.26. He is currently on Lasix 80 mg PO BID. 04/22/2020 Patient with severe abdominal pain this morning. CT scan completed revealing new mild to moderate acute enteritis involving the duodenum and proximal jejunum. WBC increased to 31.7. He has been started on Zosyn. Patient hypotensive this morning with a systolic blood pressure in the 80s. Patient has been ordered a 2 L fluid bolus per general surgery. Patient's sodium 130. Potassium 5.7. Creatinine 2.64. Bilirubin 3.0. AST 544. ALT 144. Lactic acid 12.6. PHYSICAL EXAM: VITAL SIGNS: Reviewed. GENERAL: Well-developed in no acute distress. HEENT: Head is normocephalic. Pupils are equal, round. Sclerae anicteric. Mucous membranes of the mouth are moist. Neck supple. No JVD or thyromegaly LUNGS: Respirations even and unlabored. Lungs diminished bilaterally. HEART: Regular rate and rhythm. S1 and S2 heard. Systolic murmur noted. EXTREMITIES: Normal range of motion. No clubbing or cyanosis. Peripheral pulses intact. No lower extremity edema ASSESSMENT: 1. Abdominal pain, gallbladder ultrasound revealing sludge, symptomatic cholelithiasis 2. Chest pain, atypical, troponin negative x 3 3. Coronary artery disease, s/p cardiac cath February 2020, revealing chronically occluded RCA, extensive [id number] collaterals, and mild to moderate coronary artery disease involving the LAD and circumflex 4. Ischemic cardiomyopathy, ejection fraction 25-30% 5. Chronic systolic congestive heart failure, currently euvolemic 6. Paroxysmal atrial fibrillation, on long-term anticoagulation with Eliquis 7. History of ventricular tachycardia with previous ICD implantation 8. Recent prolonged hospitalization secondary to acute liver injury, coagulopathy, and CHF 9. Acute kidney injury 10. Sepsis, suspected abdominal source PLAN: Continue to hold Eliquis Patient has been started on IV Zosyn and IVF per general surgery Patient to be transferred to the ICU Further recommendations pending patient's course Nurse practitioner note has been reviewed by physician. Signing provider agrees with the documented findings, assessment, and plan of care. Objective - Vital Signs Vital signs: Vital Signs Temp 95 F L 04/22/20 08:00 Pulse 81 04/22/20 08:00 Resp 20 04/22/20 08:00 BP 85/48 04/22/20 08:00 Pulse Ox 94 L 04/22/20 08:00 Intake & Output 04/21/20 04/22/20 04/22/20 18:59 06:59 18:59 Output Total 201 Balance -201 Output: Urine 200 Emesis 1 Other: Voiding Method Urinal # Voids 1 - Labs CBC & Chem 7: 04/22/20 06:16 04/22/20 06:16 Labs: Abnormal Lab Results - Last 24 Hours (Table) 04/21/20 04/22/20 04/22/20 Range/Units 17:53 06:16 06:16 WBC 31.7 H (3.8-10.6) k/uL RBC 4.27 L (4.30-5.90) m/uL Hgb 11.7 L (13.0-17.5) gm/dL Hct 37.5 L (39.0-53.0) % RDW 20.8 H (11.5-15.5) % Neutrophils # 27.2 H (1.3-7.7) k/uL Monocytes # 2.6 H (0-1.0) k/uL Sodium 132 L 130 L (137-145) mmol/L Potassium 5.7 H (3.5-5.1) mmol/L Chloride 93 L (98-107) mmol/L Carbon Dioxide 11 L (22-30) mmol/L BUN 44 H (9-20) mg/dL Creatinine 2.64 H (0.66-1.25) mg/dL Glucose 143 H (74-99) mg/dL POC Glucose (mg/dL) (75-99) mg/dL Plasma Lactic Acid Geoff (0.7-2.0) mmol/L Calcium 8.2 L (8.4-10.2) mg/dL Total Bilirubin 3.0 H (0.2-1.3) mg/dL AST 544 H (17-59) U/L ALT 144 H (4-49) U/L Alkaline Phosphatase 205 H (38-126) U/L Albumin 3.1 L (3.5-5.0) g/dL 04/22/20 04/22/20 Range/Units 09:02 11:18 WBC (3.8-10.6) k/uL RBC (4.30-5.90) m/uL Hgb (13.0-17.5) gm/dL Hct (39.0-53.0) % RDW (11.5-15.5) % Neutrophils # (1.3-7.7) k/uL Monocytes # (0-1.0) k/uL Sodium (137-145) mmol/L Potassium (3.5-5.1) mmol/L Chloride (98-107) mmol/L Carbon Dioxide (22-30) mmol/L BUN (9-20) mg/dL Creatinine (0.66-1.25) mg/dL Glucose (74-99) mg/dL POC Glucose (mg/dL) 227 H (75-99) mg/dL Plasma Lactic Acid Geoff 12.6 H* (0.7-2.0) mmol/L Calcium (8.4-10.2) mg/dL Total Bilirubin (0.2-1.3) mg/dL AST (17-59) U/L ALT (4-49) U/L Alkaline Phosphatase (38-126) U/L Albumin (3.5-5.0) g/dL
[2020-04-22] MEDS: METOPROLOL SUCCINATE (ER) 25 MG TAB.ER.24H PO SCH (13:12)
[2020-04-22] MEDS: DEXTROSE 5% IN WATER 1,000 ML with SODIUM BICARB (1 MEQ/ML) 150 ML IV SCH (13:15)
[2020-04-22] MEDS ORDERED: SODIUM CHLORIDE 0.9% 1,000 ML IV ONE (15:13)
[2020-04-22] MEDS ORDERED: HEPARIN SODIUM,PORCINE 5,000 UNIT/ML 1 ML VIAL IV PRN (16:11)
[2020-04-22] MEDS ORDERED: HEPARIN SODIUM,PORCINE 5,000 UNIT/ML 1 ML VIAL IV ONE (16:11)
[2020-04-22] MEDS ORDERED: HEPARIN SOD,PORK IN 0.45% NACL 25,000 UNIT in 0.45% NACL 1 250ML.BAG IV SCH (16:15)
--- NOTE | 2020-04-22 16:18 | P.GSCN ---
<Yvrose Almonte - Last Filed: 04/22/20 15:57> History of Present Illness Consult date: 04/22/20 Reason for Consult: Possible SMA occlusion Requesting physician: Jr Farah History of present illness: Patient is a 70-year-old pleasant male who came into the emergency room on April 17 for complaints of rest and abdominal pain. He states it was sharp constant consistent pain in the lower right chest area and right upper abd ominal area. He was recently hospitalized previously for abdominal pain, with nausea and vomiting as well as pulmonary edema and ascites. He had a recent gallbladder ultrasound which shows sludge, possible hepatocellular disease, hepatic steatosis. Patient has a remote history of heavy alcoholism. On his previous admission the patient underwent a mesenteric angiography, celiac, SMA and DIMITRIS angiography with Dr. 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 Vital impression stated mild disease of the celiac artery however no significant other stenosis of the SMA and DIMITRIS and do not suspect peripheral arterial disease with chronic mesenteric ischemia. Celiac artery was noted to be widely patent with proximal 20-30% stenosis. The celiac artery gives rise to splenic artery and hepatic artery without significant stenosis. This patient had a hypotensive, hypothermic event through the evening. He had increased abdominal pain and distention. A CT of the abdomen was obtained a that showed possible new mild to moderate acute enteritis involving duodenum and proximal jejunum, correlate clinically. No suspicious new focal intraperitoneal or retroperitoneal fluid collection. An addendum was added that included differential includes infectious, inflammatory, and ischemic etiologies. The latter should be considered as there appears to be significant narrowing of the celiac artery on recent CT with contrast for reference, there is also narrowing at the SMA origin but to lesser degree. No free air or portal venous air. Retrospect more likely moderate to severe wall thickening of duodenal sweep and proximal jejunal loops with mild mesenteric fluid and fat stranding. Therefore vascular surgery has been consult. The patient has been transferred to the intensive care unit, an NG tube was placed with approximately 300 mL of light bilious drainage. Patient states ab dominal pain has improved. He states without any palpation he is in no pain. He denies any nausea or vomiting at this time. WBC 31.7, hemoglobin 11.7, hematocrit 37.5, platelets 246, sodium 1:30, potassium 5.1, chloride 93, BUN 44, creatinine 2.64 plasma lactic acid 6.8, down from 12.6. LFTs include bilirubin 3.0, alkaline phosphatase 205, AST 544, ALT 144. Review of Systems 14 point review systems was completed and all pertinent positives and negatives as stated in the HPI. Past Medical History Past Medical History: Atrial Fibrillation, Coronary Artery Disease (CAD), Hyperlipidemia, Hypertension, Myocardial Infarction ([place]), Pneumonia Additional Past Medical History / Comment(s): X3 AZ'S, ULCER YEARS AGO, bradycardia Last Myocardial Infarction Date:: 2004 History of Any Multi-Drug Resistant Organisms: None Reported Past Surgical History: AICD, Cardiac Ablation, Heart Catheterization With Stent, Orthopedic Surgery, Pacemaker Additional Past Surgical History / Comment(s): CARDIOVERSION, HEART STENTS X7, cardiac ablation x 2 in the past and again om 12-05-15, rt wrist surgery after injury Past Anesthesia/Blood Transfusion Reactions: No Reported Reaction Additional Past Anesthesia/Blood Transfusion Reaction / Comm: NEVER HAS HAD GENERAL ANESTHESIA Date of Last Stent Placement:: 2004 Type of Cardiac Device: AICD Device Placement Date:: 2015 Past Psychological History: No Psychological Hx Reported Smoking Status: Former smoker Past Alcohol Use History: None Reported Past Drug Use History: None Reported - Past Family History Father Additional Family Medical History / Comment(s): DAD HAD PACER BUT NO OTHER HX KNOWN Mother Family Medical History: No Reported History Additional Family Medical History / Comment(s): pt stated does'nt know medical hx on parents. Medications and Allergies Home Medications Medication Instructions Recorded Confirmed Type Metoprolol Succinate (ER) [Toprol 25 mg PO DAILY 03/11/20 04/17/20 History XL] Apixaban [Eliquis] 5 mg PO BID #60 tab 04/05/20 04/17/20 Rx Furosemide [Lasix] 40 mg PO Q48H #30 tab 04/12/20 04/17/20 Rx Midodrine [ProAmatine] 5 mg PO AC-TID #90 tab 04/12/20 04/17/20 Rx Omeprazole [PriLOSEC] 40 mg PO BID #60 cap 04/12/20 04/17/20 Rx Allergies Allergy/AdvReac Type Severity Reaction Status Date / Time No Known Allergies Allergy Verified 04/17/20 11:24 Surgical - Exam Vital Signs Temp Pulse Resp BP Pulse Ox 97.7 F 102 H 22 101/54 98 04/17/20 10:26 04/17/20 10:26 04/17/20 10:26 04/17/20 10:04/17/20 10:26 General appearance: The patient is alert, oriented, appears in no acute distress. Warming blanket on. HET: Head is normocephalic and atraumatic. Pupils are equal and reactive. Oropharynx is clear without lesions. NG tube in place with good suction. Neck: Supple without lymphadenopathy. Trachea midline. Heart: S1 S2. Regular rate and rhythm. Lungs: No crackles or wheezes are heard. Abdomen: Soft, diffuse tenderness with palpation nondistended with bowel sounds. No peritoneal signs. No palpable organomegaly or masses. Extremities: Normal skin color and turgor. Bilateral palpable femoral and dorsalis pedis pulses. Neurological: No focal deficits. Strength and sensation are grossly intact. Results CT of the abdomen was obtained a that showed possible new mild to moderate ac ildefonso enteritis involving duodenum and proximal jejunum, correlate clinically. No suspicious new focal intraperitoneal or retroperitoneal fluid collection. An addendum was added that included differential includes infectious, inflammatory, and ischemic etiologies. The latter should be considered as there appears to be significant narrowing of the celiac artery on recent CT with contrast for reference, there is also narrowing at the SMA origin but to lesser degree. No free air or portal venous air. Retrospect more likely moderate to severe wall thickening of duodenal sweep and proximal jejunal loops with mild mesenteric fluid and fat stranding - Labs 04/22/20 06:16 04/22/20 14:59 Abnormal Lab Results - Last 24 Hours (Table) 04/21/20 04/22/20 04/22/20 Range/Units 17:53 06:16 06:16 WBC 31.7 H (3.8-10.6) k/uL RBC 4.27 L (4.30-5.90) m/uL Hgb 11.7 L (13.0-17.5) gm/dL Hct 37.5 L (39.0-53.0) % RDW 20.8 H (11.5-15.5) % Neutrophils # 27.2 H (1.3-7.7) k/uL Monocytes # 2.6 H (0-1.0) k/uL Sodium 132 L 130 L (137-145) mmol/L Potassium 5.7 H (3.5-5.1) mmol/L Chloride 93 L (98-107) mmol/L Carbon Dioxide 11 L (22-30) mmol/L BUN 44 H (9-20) mg/dL Creatinine 2.64 H (0.66-1.25) mg/dL Glucose 143 H (74-99) mg/dL POC Glucose (mg/dL) (75-99) mg/dL Plasma Lactic Acid Geoff (0.7-2.0) mmol/L Calcium 8.2 L (8.4-10.2) mg/dL Total Bilirubin 3.0 H (0.2-1.3) mg/dL AST 544 H (17-59) U/L ALT 144 H (4-49) U/L Alkaline Phosphatase 205 H (38-126) U/L Albumin 3.1 L (3.5-5.0) g/dL 04/22/20 04/22/20 04/22/20 Range/Units 09:02 11:18 12:01 WBC (3.8-10.6) k/uL RBC (4.30-5.90) m/uL Hgb (13.0-17.5) gm/dL Hct (39.0-53.0) % RDW (11.5-15.5) % Neutrophils # (1.3-7.7) k/uL Monocytes # (0-1.0) k/uL Sodium (137-145) mmol/L Potassium (3.5-5.1) mmol/L Chloride (98-107) mmol/L Carbon Dioxide (22-30) mmol/L BUN (9-20) mg/dL Creatinine (0.66-1.25) mg/dL Glucose (74-99) mg/dL POC Glucose (mg/dL) 227 H (75-99) mg/dL Plasma Lactic Acid Geoff 12.6 H* 12.3 H* (0.7-2.0) mmol/L Calcium (8.4-10.2) mg/dL Total Bilirubin (0.2-1.3) mg/dL AST (17-59) U/L ALT (4-49) U/L Alkaline Phosphatase (38-126) U/L Albumin (3.5-5.0) g/dL Diabetes panel 04/21/20 04/22/20 Range/Units 17:53 06:16 Sodium 132 L 130 L (137-145) mmol/L Potassium 5.7 H (3.5-5.1) mmol/L Chloride 93 L (98-107) mmol/L Carbon Dioxide 11 L (22-30) mmol/L BUN 44 H (9-20) mg/dL Creatinine 2.64 H (0.66-1.25) mg/dL Glucose 143 H (74-99) mg/dL Calcium 8.2 L (8.4-10.2) mg/dL AST 544 H (17-59) U/L ALT 144 H (4-49) U/L Alkaline Phosphatase 205 H (38-126) U/L Total Protein 6.5 (6.3-8.2) g/dL Albumin 3.1 L (3.5-5.0) g/dL Calcium panel 04/22/20 Range/Units 06:16 Calcium 8.2 L (8.4-10.2) mg/dL Albumin 3.1 L (3.5-5.0) g/dL Pituitary panel 04/21/20 04/22/20 Range/Units 17:53 06:16 Sodium 132 L 130 L (137-145) mmol/L Potassium 5.7 H (3.5-5.1) mmol/L Chloride 93 L (98-107) mmol/L Carbon Dioxide 11 L (22-30) mmol/L BUN 44 H (9-20) mg/dL Creatinine 2.64 H (0.66-1.25) mg/dL Glucose 143 H (74-99) mg/dL Calcium 8.2 L (8.4-10.2) mg/dL Adrenal panel 04/21/20 04/22/20 Range/Units 17:53 06:16 Sodium 132 L 130 L (137-145) mmol/L Potassium 5.7 H (3.5-5.1) mmol/L Chloride 93 L (98-107) mmol/L Carbon Dioxide 11 L (22-30) mmol/L BUN 44 H (9-20) mg/dL Creatinine 2.64 H (0.66-1.25) mg/dL Glucose 143 H (74-99) mg/dL Calcium 8.2 L (8.4-10.2) mg/dL Total Bilirubin 3.0 H (0.2-1.3) mg/dL AST 544 H (17-59) U/L ALT 144 H (4-49) U/L Alkaline Phosphatase 205 H (38-126) U/L Total Protein 6.5 (6.3-8.2) g/dL Albumin 3.1 L (3.5-5.0) g/dL Assessment and Plan Assessment: 1. Abdominal pain 2. Abnormal CT of the abdomen 3. Symptomatic cholelithiasis 4. Lactic acidosis Plan: This patient was discussed with Dr. Delgadillo. Dr. Delgadillo reviewed CT of the abdomen and previous mesenteric angiography, celiac, SMA and DIMITRIS angiography perfomred by Dr. Palacios on 04/01/20 which showed widely patent celiac artery with mild proximal 20-30% stenosis. SMA and DIMITRIS with no significant stenosis noted. At this time he does not feel that there is SMA occlusion, and no vascular surgical intervention required at this time. Continue with recommendations from ICU management and surgical services. Continue broad-spectrum antibiotics as ordered. Further recommendations to wallace rodríguez. Thank you for this consultation allowing us take part in the plan of care of your patient during his hospital stay The above dictated assessment and findings were discussed with Dr. Delgadillo. The impression and plan of care have been directed as dictated. <Jaycob Delgadillo - Last Filed: 04/22/20 18:11> Surgical - Exam Vital Signs Temp Pulse Resp BP Pulse Ox 97.7 F 102 H 22 101/54 98 04/17/20 10:26 04/17/20 10:26 04/17/20 10:26 04/17/20 10:26 04/17/20 10:26 abdominal exam with diffuse tenderness to palpation, abdomen is tense with +guarding. Patient given Dilaudid and having significant pain when palpated. Results - Labs 04/22/20 17:28 04/22/20 14:59 Abnormal Lab Results - Last 24 Hours (Table) 04/21/20 04/22/20 04/22/20 Range/Units 17:53 06:16 06:16 WBC 31.7 H (3.8-10.6) k/uL RBC 4.27 L (4.30-5.90) m/uL Hgb 11.7 L (13.0-17.5) gm/dL Hct 37.5 L (39.0-53.0) % RDW 20.8 H (11.5-15.5) % Neutrophils # 27.2 H (1.3-7.7) k/uL Lymphocytes # (1.0-4.8) k/uL Monocytes # 2.6 H (0-1.0) k/uL Sodium 132 L 130 L (137-145) mmol/L Potassium 5.7 H (3.5-5.1) mmol/L Chloride 93 L (98-107) mmol/L Carbon Dioxide 11 L (22-30) mmol/L BUN 44 H (9-20) mg/dL Creatinine 2.64 H (0.66-1.25) mg/dL Glucose 143 H (74-99) mg/dL POC Glucose (mg/dL) (75-99) mg/dL Plasma Lactic Acid Geoff (0.7-2.0) mmol/L Calcium 8.2 L (8.4-10.2) mg/dL Total Bilirubin 3.0 H (0.2-1.3) mg/dL AST 544 H (17-59) U/L ALT 144 H (4-49) U/L Alkaline Phosphatase 205 H (38-126) U/L Albumin 3.1 L (3.5-5.0) g/dL 04/22/20 04/22/20 04/22/20 Range/Units 09:02 11:18 12:01 WBC (3.8-10.6) k/uL RBC (4.30-5.90) m/uL Hgb (13.0-17.5) gm/dL Hct (39.0-53.0) % RDW (11.5-15.5) % Neutrophils # (1.3-7.7) k/uL Lymphocytes # (1.0-4.8) k/uL Monocytes # (0-1.0) k/uL Sodium (137-145) mmol/L Potassium (3.5-5.1) mmol/L Chloride (98-107) mmol/L Carbon Dioxide (22-30) mmol/L BUN (9-20) mg/dL Creatinine (0.66-1.25) mg/dL Glucose (74-99) mg/dL POC Glucose (mg/dL) 227 H (75-99) mg/dL Plasma Lactic Acid Geoff 12.6 H* 12.3 H* (0.7-2.0) mmol/L Calcium (8.4-10.2) mg/dL Total Bilirubin (0.2-1.3) mg/dL AST (17-59) U/L ALT (4-49) U/L Alkaline Phosphatase (38-126) U/L Albumin (3.5-5.0) g/dL 04/22/20 04/22/20 Range/Units 14:59 17:28 WBC 28.2 H (3.8-10.6) k/uL RBC 3.86 L (4.30-5.90) m/uL Hgb 10.2 L (13.0-17.5) gm/dL Hct 32.6 L (39.0-53.0) % RDW 21.3 H (11.5-15.5) % Neutrophils # 25.6 H (1.3-7.7) k/uL Lymphocytes # 0.9 L (1.0-4.8) k/uL Monocytes # 1.4 H (0-1.0) k/uL Sodium (137-145) mmol/L Potassium (3.5-5.1) mmol/L Chloride (98-107) mmol/L Carbon Dioxide (22-30) mmol/L BUN (9-20) mg/dL Creatinine (0.66-1.25) mg/dL Glucose (74-99) mg/dL POC Glucose (mg/dL) (75-99) mg/dL Plasma Lactic Acid Geoff 6.8 H* (0.7-2.0) mmol/L Calcium (8.4-10.2) mg/dL Total Bilirubin (0.2-1.3) mg/dL AST (17-59) U/L ALT (4-49) U/L Alkaline Phosphatase (38-126) U/L Albumin (3.5-5.0) g/dL Diabetes panel 04/21/20 04/22/20 04/22/20 Range/Units 17:53 06:16 14:59 Sodium 132 L 130 L (137-145) mmol/L Potassium 5.7 H 5.1 (3.5-5.1) mmol/L Chloride 93 L (98-107) mmol/L Carbon Dioxide 11 L (22-30) mmol/L BUN 44 H (9-20) mg/dL Creatinine 2.64 H (0.66-1.25) mg/dL Glucose 143 H (74-99) mg/dL Calcium 8.2 L (8.4-10.2) mg/dL AST 544 H (17-59) U/L ALT 144 H (4-49) U/L Alkaline Phosphatase 205 H (38-126) U/L Total Protein 6.5 (6.3-8.2) g/dL Albumin 3.1 L (3.5-5.0) g/dL Calcium panel 04/22/20 Range/Units 06:16 Calcium 8.2 L (8.4-10.2) mg/dL Albumin 3.1 L (3.5-5.0) g/dL Pituitary panel 04/21/20 04/22/20 04/22/20 Range/Units 17:53 06:16 14:59 Sodium 132 L 130 L (137-145) mmol/L Potassium 5.7 H 5.1 (3.5-5.1) mmol/L Chloride 93 L (98-107) mmol/L Carbon Dioxide 11 L (22-30) mmol/L BUN 44 H (9-20) mg/dL Creatinine 2.64 H (0.66-1.25) mg/dL Glucose 143 H (74-99) mg/dL Calcium 8.2 L (8.4-10.2) mg/dL Adrenal panel 04/21/20 04/22/20 04/22/20 Range/Units 17:53 06:16 14:59 Sodium 132 L 130 L (137-145) mmol/L Potassium 5.7 H 5.1 (3.5-5.1) mmol/L Chloride 93 L (98-107) mmol/L Carbon Dioxide 11 L (22-30) mmol/L BUN 44 H (9-20) mg/dL Creatinine 2.64 H (0.66-1.25) mg/dL Glucose 143 H (74-99) mg/dL Calcium 8.2 L (8.4-10.2) mg/dL Total Bilirubin 3.0 H (0.2-1.3) mg/dL AST 544 H (17-59) U/L ALT 144 H (4-49) U/L Alkaline Phosphatase 205 H (38-126) U/L Total Protein 6.5 (6.3-8.2) g/dL Albumin 3.1 L (3.5-5.0) g/dL Assessment and Plan Plan: Reviewed CT abdomen which demonstrates some mild calcified celiac artery without significant stenosis. SMA is patent. When compared to the previous mesenteric angiogram there doesn't appear to be a significant change in the calcification which was minimal last month. Based on the patient's presentation and pain out of proportion to exam ongoing for the last 12-18 hours there is little benefit from another angiogram and vascular intervention. I did discuss with the primary surgeon my concerns for ongoing ischemic bowel and recommend at least laparoscopy to determine the status of the bowel. We repeated labs due to renal dysfunction and creatinine of 2.6 which is a relative contraindication for further contrast usage. Even if intervention was done endovascularly for thrombus which is not recognized on CT the patient would require laparoscopy to see if bowel is viable due to time of onset of symptoms.
[2020-04-22] MEDS: HYDROmorphone 1 MG/ML 1 ML SYRINGE IVP PRN (16:40)
--- NOTE | 2020-04-22 17:01 | XR ---
EXAMINATION TYPE: XR chest 1V portable DATE OF EXAM: 04/22/2020 COMPARISON: Today HISTORY: Central line placement. TECHNIQUE: FINDINGS: There is pulmonary interstitial and airspace edema. There is blunting of the right costophr enic angle. There is nasogastric tube in the stomach. There is left side jugular catheter with tip in the superio r vena cava. There is left axillary pacemaker. There are chest leads. Heart size is normal. IMPRESSION: Pulmonary edema and right pleural effusion could relate to congestive heart failure or RD S. No pneumothorax.
[2020-04-22 17:36] LABS: Anisocytosis Moderate; Basophils # (A) 0.1 k/uL (0-0.2); Basophils % (A) 0 %; Eosinophils % (A) 0 %; HCT 32.6 % (39.0-53.0); HGB 10.2 gm/dL (13.0-17.5); Hypochromasia Slight; Lymphocytes # (A) 0.9 k/uL (1.0-4.8); Lymphocytes % (A) 3 %; MCH 26.5 pg (25.0-35.0); MCHC 31.3 g/dL (31.0-37.0); MCV 84.6 fL (80.0-100.0); Mean Platelet Volume 9.9; Microcytosis Slight; Monocytes # (A) 1.4 k/uL (0-1.0); Monocytes % (A) 5 %; Neutrophils # (A) 25.6 k/uL (1.3-7.7); Neutrophils % (A) 91 %; Platelet Count 222 k/uL (150-450); Poikilocytosis Slight; RBC 3.86 m/uL (4.30-5.90); RDW 21.3 % (11.5-15.5); WBC 28.2 k/uL (3.8-10.6)
[2020-04-22 17:45] LABS: INR 4.2 (<1.2)
[2020-04-22 18:09] LABS: Calcium 6.5 mg/dL (8.4-10.2); Magnesium 2.1 mg/dL (1.6-2.3); Potassium 4.6 mmol/L (3.5-5.1)
--- NOTE | 2020-04-22 18:19 | PCN ---
PROCEDURE NOTE LEFT RADIAL ARTERIAL LINE PLACEMENT: Indications: Hemodynamic monitoring. A time-out was completed verifying correct patient, procedure, site, positioning, and implant(s) or special equipment if applicable. Bill's test was performed to ensure adequate perfusion. The patient's left wrist was prepped and draped in sterile fashion. 1% Lidocaine was used to anesthetize the area. An 18G Arrow arterial line was introduced into the radial artery. The catheter was threaded over the guidewire and the needle was removed with appropriate pulsatile blood return. Blood loss was minimal. The catheter was then sutured in place to the skin and a sterile dressing applied. Perfusion to the extremity distal to the point of catheter insertion was checked and found to be adequate. There was good blood return and waveform. Sterile dressing was applied by the nurse. The patient tolerated the procedure well and there were no immediate complications. MMODL / IJN: [id number] /
--- NOTE | 2020-04-22 18:24 | PCN ---
PROCEDURE NOTE LEFT INTERNAL JUGULAR TRIPLE LUMEN CATHETER PLACEMENT: Indication: Hemodynamic monitoring/Intravenous access. A time-out was completed verifying correct patient, procedure, site, positioning, and implant(s) or special equipment if applicable. PREOPERATIVE DIAGNOSIS: Administration of fluids and pressors. POSTOPERATIVE DIAGNOSIS: Administration of fluids and pressors. DRYING RACK CHANGER: Ruddy Reid M.D. PROCEDURE DESCRIPTION: There was universal timeout. Informed consent was obtained. The patient was placed in a dependent position appropriate for triple-lumen catheter placement based on the vein to be cannulated. The patient's left shoulder was prepped and draped in sterile fashion. 1% Lidocaine was used to anesthetize the surrounding skin area. A triple-lumen 9F Cordis catheter was introduced into the left internal jugular vein using Seldinger technique and possible approach. The catheter was threaded smoothly over the guidewire and appropriate blood return was obtained. Each lumen of the catheter was evacuated of air and flushed with sterile saline. The catheter was then sutured in place to the skin and a sterile dressing applied. Perfusion to the extremity distal to the point of catheter insertion was checked and found to be adequate. There were no immediate complications. There was good blood return from all 3 ports. The patient tolerated the procedure well. The catheter was sutured in place. Sterile dressing was applied by the nurse. A chest x-ray was ordered. The tip of the catheter was noted in the right atrium. There was no immediate complication. The patient tolerated the procedure very well. MMODL / IJN: [id number] /
[2020-04-22] MEDS: ATORVASTATIN 40 MG TAB PO SCH (21:31)
--- NOTE | 2020-04-22 22:51 | P.PN ---
Progress Note - Text Progress Note Date: 04/22/20 Presenting complaint Chest pain: Interval course: Patient was recently in the hospital with ischemic colitis with resultant hypotension lactic acidosis ischemic hepatitis, acute CHF exacerbation was admitted to the ICU. Now presented with chest pain. Found to be atypical. Negative troponins. Ultrasound of the abdomen showed gallbladder sludge. Suspicion for acute cholecystitis. Followed by surgery. No history of carotid artery disease. Known EF of 30-35%. Also atrial fibrillation, hyperlipidemia, AICD. April 20-surgery was postponed for a sodium of 127 by anesthesia. Patient was given salt tablet fluid restriction and held of free fluid. Following day sodium went to 128. Nephrology consulted. Ordered Samsca Today-patient feeling nauseated tired. Increasing abdominal pain. Kidney function has been worsening. Patient uncomfortable. Review of systems: Was done for constitutional, cardiovascular, GI, pulmonary. relevant finding as above Current medications reviewed this morning from electronic records On examination: VITAL SIGNS: 95, 81, 18, 85 x 48, 94% room air GENERAL APPEARANCE: Laying in bed, uncomfortable HEENT: Normal external appearance of nose and ear. Oral cavity normal EYES: Pupils equal. Conjunctiva normal. NECK: JVD not raised. Mass not palpable. RESPIRATORY: Respiratory effort normal. Lungs clear to auscultation. CARDIOVASCULAR: Heart sounds irregular. No edema. ABDOMEN: Soft. Liver and spleen not palpable. Diffuse tenderness no guarding rigidity. No mass palpable. PSYCHIATRY: Alert and oriented x3. Mood and affect anxious. Investigations: April 22: White count 31.7 hemoglobin 11.7 potassium 5.7 bun 44 creatinine 2.64 bicarb 11 lactic acid 12.6 AST 544 ALT 144 Computed tomography scan abdomen and pelvis-mild to moderate acute enteritis involving the duodenum and proximal jejunum April 21: Sodium 128 bun 29 creatinine 1.58. Serum osmolality 282 White count 8.6 hemoglobin 12.7 platelets 298 sodium 127 potassium 4.7 creatinine 1.26 Coronavirus [PCR]-not detected EKG tracing-left bundle-branch block pattern Assessment: -Acute enteritis with sepsis picture -Acute metabolic acidosis from worsening renal function -Acute kidney injury, ATN worsening -Acute ischemic hepatitis -Acute lactic acidosis likely combination of type I-type II -Hyperkalemia-worsening -Acute cholecystitis, pending surgery -Hyponatremia, suspect hypervolemia from CHF. Normal osmolar. Slow to respond -Chest pain-felt to be noncardiac -Coronary artery disease with cardiac cath in February 2020 revealing chronically occluded RCA extensive [id number] collaterals etc. -Chronic congestive heart failure from systolic dysfunction EF 25-30% -Paroxysmal atrial fibrillation chronically on eliquis -AICD for ventricular tachycardia Plan: Spoke to Dr. Reid communicable disease specialist. He did evaluate the patient. Patient be moved to the ICU. Patient be placed on IV Zosyn. D5W. Will DC Lipitor. DC Tylenol. IV bicarbonate drip. IV fluids. Strict I's and O's. Total time spent about 1 hour with over 30 minutes of discussion
[2020-04-23] MEDS: ONDANSETRON 4 MG/2 ML VIAL IVP PRN (00:40)
[2020-04-23] MEDS: PIPERACILLIN-TAZOBACTAM 3.375 GM in SODIUM CHLORIDE 0.9% 100 ML IVPB SCH ×4 (02:59→23:53)
[2020-04-23] MEDS: DEXTROSE 5% IN WATER 1,000 ML with SODIUM BICARB (1 MEQ/ML) 150 ML IV SCH (02:59)
[2020-04-23 04:09] LABS: Anisocytosis Moderate; Basophils # (A) 0.1 k/uL (0-0.2); Basophils % (A) 0 %; Eosinophils # (A) 0.1 k/uL (0-0.7); Eosinophils % (A) 0 %; HCT 33.2 % (39.0-53.0); Lymphocytes # (A) 0.4 k/uL (1.0-4.8); Lymphocytes % (A) 2 %; MCH 27.6 pg (25.0-35.0); MCHC 33.1 g/dL (31.0-37.0); MCV 83.3 fL (80.0-100.0); Mean Platelet Volume 9.5; Microcytosis Slight; Monocytes # (A) 1.8 k/uL (0-1.0); Monocytes % (A) 7 %; Neutrophils # (A) 22.5 k/uL (1.3-7.7); Neutrophils % (A) 90 %; Platelet Count 200 k/uL (150-450); Poikilocytosis Slight; RBC 3.98 m/uL (4.30-5.90); RDW 21.3 % (11.5-15.5)
[2020-04-23 04:19] LABS: Albumin 2.5 g/dL (3.5-5.0); Magnesium 2.1 mg/dL (1.6-2.3); Potassium 4.2 mmol/L (3.5-5.1); Total Bilirubin 3.2 mg/dL (0.2-1.3); Total Protein 5.6 g/dL (6.3-8.2)
[2020-04-23 04:21] LABS: INR 1.9 (<1.2); Partial Thromboplastin Time 35.7 sec (22.0-30.0); Prothrombin Time 18.9 sec (9.0-12.0)
[2020-04-23 04:25] LABS: Calcium 6.5 mg/dL (8.4-10.2)
[2020-04-23] MEDS: HYDROmorphone 1 MG/ML 1 ML SYRINGE IVP PRN (06:31)
[2020-04-23] MEDS: MIDODRINE 5 MG TAB PO SCH ×3 (06:37→17:20)
--- NOTE | 2020-04-23 07:26 | XR ---
EXAMINATION TYPE: XR chest 1V DATE OF EXAM: 04/23/2020 COMPARISON: 04/22/2020 HISTORY: SOB, Follow Up FINDINGS: Indwelling tubes and catheters are unchanged. Scattered airspace infiltrates are seen bilaterally. Stable right basilar effusion. No significant ch lakia appreciated. Stable appearance of the cardio-mediastinal structures at this time. Pleural effusion unchanged. IMPRESSION: 1. Stable portable chest. Clinical correlation and follow up until resolution is recommended.
[2020-04-23] MEDS: PANTOPRAZOLE 40 MG/10 ML VIAL IV SCH (08:57)
[2020-04-23] MEDS: METOPROLOL SUCCINATE (ER) 25 MG TAB.ER.24H PO SCH (09:13)
--- NOTE | 2020-04-23 10:54 | P.PN ---
Subjective Progress Note Date: 04/23/20 Principal diagnosis: Cholecystitis and sepsis. Progress note dated 04/23/2020. This is a 70-year-old male who presented to the emergency department on April 17, at 1020 in the morning. The patient's complaints include primarily chest and abdominal pain. It began the night prior about 12 hours earlier. It's sharp constant consistent pain in the lower right chest area and right upper abdominal area. The patient denies any trauma to this area. The pain was so bad, he could not sleep. In addition, the patient does admit to being mildly short of breath. There are no fever or chills. He denied any nausea, vomiting, or diarrhea. The patient was recently inpatient for pulmonary edema and ascites. The patient was evaluated and discovered to have acute cholecystitis. The patient was to have surgery but apparently the sodium was low and so the surgery was canceled. I was up on the floor seeing other patients today, and the primary service asked me to see Mr. Obrien. They were concerned about sepsis. The patient was hypotensive, and hypothermic. In addition, his lactic acid had risen to above 12. For that reason, the patient was admitted to my list, the patient was transferred down to the intensive care unit for further evaluation and management. The patient's white count jumped up to 31.7, hemoglobin 11.7, hematocrit 37.5, and platelet count was normal. Sodium was 130, potassium 5.7, chloride 73, CO2 11, anion gap was 26, and BUN and creatinine were 44 and 2.64. These labs are consistent with a anion gap metabolic acidosis, secondary to renal failure and lactic acidemia. The patient's AST was 544, ALT 144, and alkaline phosphatase was 205. Bilirubin was elevated at 3.0. Chest x-ray today showed bilateral areas of atelectasis, pneumonia, edema, and effusions. CT of the abdomen and pelvis revealed evidence of moderate acute enteritis involving the duodenum and proximal jejunum, bilateral lower pleural effusions, and associated compressive atelectasis. The patient was only started on antibiotics today. Progress note dated 04/24/2020. 70-year-old male who presented to the emergency department on April 17 with chest and abdominal pain. The patient was found to have acute cholecystitis. The patient was transferred to the intensive care unit yesterday. I placed an art line and a central line. He has a left internal jugular triple-lumen catheter, and a left radial art line. Both were placed for fluid administration, vasopressor administration, blood draws, and better control and evaluation of his blood pressure. The patient has been seen by surgery and also by vascular surgery. Currently, and NG tube is in place. The patient's getting nasal O2 at 4 L. The patient's getting D5W with 3 ampules of sodium bicarbonate at 75 mL an hour. His current antibiotic is Zosyn. White blood count is 25,000, hemoglobin 11, hematocrit 33.2, and platelet count 200,000. PT is 18.9 INR is 1.9 and PTT is 35.7. Sodium 133, potassium 4.2, chloride 97, CO2 29, anion gap 7, and a BUN and creatinine 50 and 2.45 respectively. In addition, his lactic acid which was as high as 12.6 yesterday, is now down to 1.4 this with fluid administration and antibiotics. Chest x-ray shows bilateral scattered airspace disease. Central line is in good position. CT of the abdomen shows mild to moderate acute enteritis involving the duodenum and proximal jejunum. Objective - Vital Signs Vital signs: Vital Signs Temp 96.3 F L 04/23/20 08:00 Pulse 87 04/23/20 10:00 Resp 12 04/23/20 10:00 BP 105/62 04/22/20 16:00 Pulse Ox 94 L 04/23/20 10:00 Intake & Output 04/22/20 04/23/20 04/23/20 18:59 06:59 18:59 Intake Total 775 951.573 400 Output Total 237 1150 500 Balance 538 -198.427 -100 Weight 69.8 kg Intake: IV 775 925 400 Dextrose 5% in Water 1, 450 825 300 000 ml @ 75 mls/hr IV . [id number] [facility] with Sodium Bicarb (1 Meq/ml) 150 ml Rx#:[id number] Piperacillin-Tazobactam 3 200 100 100 .375 gm In Sodium Chloride 0.9% 100 ml @ 25 mls/hr IVPB Q8HR [facility] Rx# :[id number] Sodium Chloride 0.9% 1, 125 000 ml @ 125 mls/hr IV . Q8H [facility] Rx#:[id number] Intake, IV Titration 26.573 Amount Heparin Sod,Pork in 0.45% 26.573 NaCl 25,000 unit In 0.45 % NaCl 1 250ml.bag @ 12 UNITS/KG/HR 7.893 mls/hr IV .Q24H [facility] Rx#: [id number] Output: Urine 237 1150 500 Other: Voiding Method Indwelling Catheter Indwelling Catheter ABP, PAP, CO, CI - Last Documented Arterial Blood Pressure 135/61 - Exam Moderately severe abdominal pain, oriented 3, lying The patient is lying supine, NG tube in place, now on nasal cannula 4 L. HEENT examination is grossly unremarkable. Mucous membranes are moist. No oral lesions. Neck supple. Full range of motion. No adenopathy thyromegaly or neck vein distention. Cardiovascular examination reveals regular rhythm rate. S1-S2 normal. No S3 or S4. No discernible murmur noted. Heart rate is 87 bpm. Lungs reveal bilateral rhonchi and lower lobe crackles. Breath sounds equal bilaterally. Abdomen very tender to touch, particularly in the area of the right upper quadrant. No bowel sounds are noted. Extremities are intact. No cyanosis clubbing or edema. Skin is without rash or lesion. Neurologic examination is brief but nonfocal. - Labs CBC & Chem 7: 04/23/20 04:00 04/23/20 04:00 Labs: Abnormal Lab Results - Last 24 Hours (Table) 04/22/20 04/22/20 04/22/20 Range/Units 11:18 12:01 14:59 WBC (3.8-10.6) k/uL RBC (4.30-5.90) m/uL Hgb (13.0-17.5) gm/dL Hct (39.0-53.0) % RDW (11.5-15.5) % Neutrophils # (1.3-7.7) k/uL Lymphocytes # (1.0-4.8) k/uL Monocytes # (0-1.0) k/uL PT (9.0-12.0) sec INR (<1.2) APTT (22.0-30.0) sec Sodium (137-145) mmol/L Chloride (98-107) mmol/L BUN (9-20) mg/dL Creatinine (0.66-1.25) mg/dL Glucose (74-99) mg/dL POC Glucose (mg/dL) 227 H (75-99) mg/dL Plasma Lactic Acid Geoff 12.3 H* 6.8 H* (0.7-2.0) mmol/L Calcium (8.4-10.2) mg/dL Total Bilirubin (0.2-1.3) mg/dL AST (17-59) U/L ALT (4-49) U/L Alkaline Phosphatase (38-126) U/L Total Protein (6.3-8.2) g/dL Albumin (3.5-5.0) g/dL 04/22/20 04/22/20 04/22/20 Range/Units 17:28 17:28 17:28 WBC 28.2 H (3.8-10.6) k/uL RBC 3.86 L (4.30-5.90) m/uL Hgb 10.2 L (13.0-17.5) gm/dL Hct 32.6 L (39.0-53.0) % RDW 21.3 H (11.5-15.5) % Neutrophils # 25.6 H (1.3-7.7) k/uL Lymphocytes # 0.9 L (1.0-4.8) k/uL Monocytes # 1.4 H (0-1.0) k/uL PT 40.0 H (9.0-12.0) sec INR 4.2 H (<1.2) APTT (22.0-30.0) sec Sodium 131 L (137-145) mmol/L Chloride (98-107) mmol/L BUN 47 H (9-20) mg/dL Creatinine 2.61 H (0.66-1.25) mg/dL Glucose 214 H (74-99) mg/dL POC Glucose (mg/dL) (75-99) mg/dL Plasma Lactic Acid Geoff (0.7-2.0) mmol/L Calcium 6.5 L (8.4-10.2) mg/dL Total Bilirubin (0.2-1.3) mg/dL AST (17-59) U/L ALT (4-49) U/L Alkaline Phosphatase (38-126) U/L Total Protein (6.3-8.2) g/dL Albumin (3.5-5.0) g/dL 04/22/20 04/22/20 04/23/20 Range/Units 17:28 17:41 04:00 WBC 25.0 H (3.8-10.6) k/uL RBC 3.98 L (4.30-5.90) m/uL Hgb 11.0 L (13.0-17.5) gm/dL Hct 33.2 L (39.0-53.0) % RDW 21.3 H (11.5-15.5) % Neutrophils # 22.5 H (1.3-7.7) k/uL Lymphocytes # 0.4 L (1.0-4.8) k/uL Monocytes # 1.8 H (0-1.0) k/uL PT (9.0-12.0) sec INR (<1.2) APTT >200.0 H* (22.0-30.0) sec Sodium (137-145) mmol/L Chloride (98-107) mmol/L BUN (9-20) mg/dL Creatinine (0.66-1.25) mg/dL Glucose (74-99) mg/dL POC Glucose (mg/dL) (75-99) mg/dL Plasma Lactic Acid Geoff 3.0 H* (0.7-2.0) mmol/L Calcium (8.4-10.2) mg/dL Total Bilirubin (0.2-1.3) mg/dL AST (17-59) U/L ALT (4-49) U/L Alkaline Phosphatase (38-126) U/L Total Protein (6.3-8.2) g/dL Albumin (3.5-5.0) g/dL 04/23/20 04/23/20 Range/Units 04:00 04:00 WBC (3.8-10.6) k/uL RBC (4.30-5.90) m/uL Hgb (13.0-17.5) gm/dL Hct (39.0-53.0) % RDW (11.5-15.5) % Neutrophils # (1.3-7.7) k/uL Lymphocytes # (1.0-4.8) k/uL Monocytes # (0-1.0) k/uL PT 18.9 H (9.0-12.0) sec INR 1.9 H (<1.2) APTT 35.7 H (22.0-30.0) sec Sodium 133 L (137-145) mmol/L Chloride 97 L (98-107) mmol/L BUN 50 H (9-20) mg/dL Creatinine 2.45 H (0.66-1.25) mg/dL Glucose 207 H (74-99) mg/dL POC Glucose (mg/dL) (75-99) mg/dL Plasma Lactic Acid Geoff (0.7-2.0) mmol/L Calcium 6.5 L (8.4-10.2) mg/dL Total Bilirubin 3.2 H (0.2-1.3) mg/dL AST 356 H (17-59) U/L ALT 128 H (4-49) U/L Alkaline Phosphatase 184 H (38-126) U/L Total Protein 5.6 L (6.3-8.2) g/dL Albumin 2.5 L (3.5-5.0) g/dL Assessment and Plan Assessment: Sepsis, secondary to suspected acute cholecystitis/enteritis. Hypothermia, and hypotension, secondary to suspected sepsis. Possible small bowel ischemic/inflammatory changes. History of acute kidney injury. Hyponatremia. History of chronic atrial fibrillation. History of CAD, status post stent placement. History of hyperlipidemia. History of essential hypertension. History of myocardial infarction. History of pneumonia. History of previous cardiac ablation and AICD/PM placement. Plan: Plan dated 04/23/2020. The patient now has a central line and arterial line. The patient's IV can be converted to D5 0.9 at 75 mL an hour. The patient remains on Zosyn. The surgeon is notified. The patient will go back to the radiology department for a computed tomography scan of the abdomen and pelvis, without oral or IV contrast. Prognosis is guarded. We'll continue to follow. Additional recommendations and suggestions are forthcoming. Time with Patient: Greater than 30
--- NOTE | 2020-04-23 12:14 | CT ---
EXAMINATION TYPE: CT abdomen pelvis wo con DATE OF EXAM: 04/23/2020 COMPARISON: 04/22/2020 HISTORY: Chest and abdominal pain CT DLP: 545.4 mGycm Examination of the solid and hollow viscera is limited given the lack of contrast. FINDINGS: LUNG BASES: Again noted are basilar pleural effusions and underlying compressive atelectasis. LIVER/GB: The gallbladder is unremarkable. No space-occupying hepatic lesion. PANCREAS: No pancreatic mass identified. No inflammatory process seen. SPLEEN: No evidence for splenomegaly. No intrasplenic lesions seen. ADRENALS: No adrenal nodules identified. No evidence for thickening. KIDNEYS: No evidence for renal mass. No nephrolithiasis. No hydronephrosis. Chiu catheter is noted w ithin the urinary bladder. Mild wall thickening is identified. Correlate for underlying cystitis. The re is a small amount of free fluid within the pelvis. BOWEL: NG tube is now in place. Persistent but improved wall thickening involving the duodenum and pr oximal jejunum. Nonspecific enteritis is a within the differential diagnosis. There is no evidence fo r pneumoperitoneum or abscess. Lymph nodes: No evidence for adenopathy greater than 1 cm. Abdominal aorta: Atheromatous changes seen. No evidence for aneurysm. Genital organs: No significant abnormality. Other: Small amount of ascites is noted adjacent to the liver edge. IMPRESSION: 1. Basilar atelectasis and/or infiltrates with pleural effusions. 2. Improving features of duodenal and jejunal enteritis nonspecific type. 3. Correlate for cystitis.
--- NOTE | 2020-04-23 12:18 | P.PN ---
Subjective Progress Note Date: 04/23/20 CHIEF COMPLAINT: Generalized abdominal pain HISTORY OF PRESENT ILLNESS: The patient is a 70-year-old male admitted 04/17/2020 for chest pain. He was being evaluated for cholecystitis. He is in intensive care unit for sepsis. Notified by nursing that another CT scan ordered today by life care planner for persistent abdominal pain. Patient came back from CT. "I don't know where my pain was," when questioned for location of pain. He wants ice chips and popsicles. He has pre-existing peripheral vascular disease. He was recently seen by vascular surgeon per nurse with aortogram done in last 1 to 2 months. No recent arrhythmias. He is in the ICU. He reported some discomfort with transfer from imaging to room. ROS: No fevers or chills. No shortness of breath. He has AICD. History of anticoagulation supratherapuetic. PHYSICAL EXAM: VITAL SIGNS: Reviewed CONSTITUTIONAL: Well developed and in no acute distress. Appears comfortable. EYES: Conjuctivae without sclera icterus. Extraocular movements grossly intact. HEAD, EARS, NOSE, THROAT: Moist buccal mucosa. Head is atraumatic, normocephalic . Hears conversational speech. No nasal drainage. NECK: Supple. No thyroidomegaly. RESPIRATORY: Non-labored respirations and equal bilateral excursions. CARDIOVASCULAR: Palpable 2+ radial pulses. ABDOMEN: No grimmacing with light palpation. Right upper quadrant non-tender to light palpation. No rigidity or peritonitis. No abdominal scarring. MUSCULOSKELETAL: No gross deformity of the lower extremities noted. No clubbing. No cyanosis. SKIN: Good skin turgor. Well perfused. NEUROLOGIC: Cranial nerves II through XII grossly intact. No focal or lateralizing signs. PSYCH: Appropriate affect. Alert and oriented to person, place and time. CLINICAL LABS: White blood cell count 25,000 down from 28,000. INR 1.9 down from 4.2. Lactic acid improved from 3.0-1.4. Creatinine down from 2.61 to 2.45. Total bilirubin elevated 3.2. LFTs elevated 120s to 350s. STUDIES: Ultrasound of the gallbladder independently reviewed from 04/18/2020 demonstrated gallbladder sludge with gallstones. No evidence of gallbladder wall thickening. This is my independent interpretation. CT of the abdomen and pelvis independently reviewed from 04/22/2020 demonstrated large bilateral pleural effusions. Stomach distended. Small bowel without dilation or bowel obstruction. No free air identified. No inflammatory changes identified along the colon. Stool within the sigmoid colon descending colon. This is my independent interpretation. RADIOLOGY: Report of CT of the abdomen pelvis and 04/22/2020 demonstrated new thickening along the duodenal sweep questionable for ischemic changes. EKG: Reviewed with left bundle branch block and multiple PVCs CT abdomen/pelvis without IV contrast from today independently reviewed with stomach mildly dilated. Thickening noted along proximal duodenum. Moderate bilateral pleural effusions. No free air. No small bowel obtruction. Bilateral inguinal hernias, small noted. This is my independent interpretation. ASSESSMENT: 1. Sepsis with lactic acidosis 2. Gallstones 3. Elevated liver enzymes 4. Chronic anticoagulation 5. Peripheral vascular occlusive disease. PLAN: 1. He has CT scan imaging with new change of questionable ischemia along the proximal small bowel. May benefit from repeat aortogram/angiogram. Will defer to vascular surgery team. 2. Continure on Zosyn antibiotics for sepsis. May benefit from adjustment antibiotics. Recommend infectious disease consultation. Otherwise may benefit from addition of Flagyl 3. May have ice chips and popsicles to which he can tolerate. Objective - Vital Signs Vital signs: Vital Signs Temp 96.3 F L 04/23/20 08:00 Pulse 87 04/23/20 09:00 Resp 12 04/23/20 09:00 BP 105/62 04/22/20 16:00 Pulse Ox 94 L 04/23/20 09:00 Intake & Output 04/22/20 04/23/20 04/23/20 18:59 06:59 18:59 Intake Total 775 951.573 400 Output Total 237 1150 500 Balance 538 -198.427 -100 Weight 69.8 kg Intake: IV 775 925 400 Dextrose 5% in Water 1, 450 825 300 000 ml @ 75 mls/hr IV . [id number] [facility] with Sodium Bicarb (1 Meq/ml) 150 ml Rx#:[id number] Piperacillin-Tazobactam 3 200 100 100 .375 gm In Sodium Chloride 0.9% 100 ml @ 25 mls/hr IVPB Q8HR [facility] Rx# :[id number] Sodium Chloride 0.9% 1, 125 000 ml @ 125 mls/hr IV . Q8H [facility] Rx#:[id number] Intake, IV Titration 26.573 Amount Heparin Sod,Pork in 0.45% 26.573 NaCl 25,000 unit In 0.45 % NaCl 1 250ml.bag @ 12 UNITS/KG/HR 7.893 mls/hr IV .Q24H [facility] Rx#: [id number] Output: Urine 237 1150 500 Other: Voiding Method Indwelling Catheter Indwelling Catheter ABP, PAP, CO, CI - Last Documented Arterial Blood Pressure 134/61 - Labs CBC & Chem 7: 04/23/20 04:00 04/23/20 04:00 Labs: Abnormal Lab Results - Last 24 Hours (Table) 04/22/20 04/22/20 04/22/20 Range/Units 06:16 11:18 12:01 WBC (3.8-10.6) k/uL RBC (4.30-5.90) m/uL Hgb (13.0-17.5) gm/dL Hct (39.0-53.0) % RDW (11.5-15.5) % Neutrophils # (1.3-7.7) k/uL Lymphocytes # (1.0-4.8) k/uL Monocytes # (0-1.0) k/uL PT (9.0-12.0) sec INR (<1.2) APTT (22.0-30.0) sec Sodium (137-145) mmol/L Chloride (98-107) mmol/L BUN (9-20) mg/dL Creatinine (0.66-1.25) mg/dL Glucose (74-99) mg/dL POC Glucose (mg/dL) 227 H (75-99) mg/dL Plasma Lactic Acid Geoff 12.3 H* (0.7-2.0) mmol/L Calcium (8.4-10.2) mg/dL Total Bilirubin 3.0 H (0.2-1.3) mg/dL AST 544 H (17-59) U/L ALT 144 H (4-49) U/L Alkaline Phosphatase 205 H (38-126) U/L Total Protein (6.3-8.2) g/dL Albumin 3.1 L (3.5-5.0) g/dL 04/22/20 04/22/20 04/22/20 Range/Units 14:59 17:28 17:28 WBC 28.2 H (3.8-10.6) k/uL RBC 3.86 L (4.30-5.90) m/uL Hgb 10.2 L (13.0-17.5) gm/dL Hct 32.6 L (39.0-53.0) % RDW 21.3 H (11.5-15.5) % Neutrophils # 25.6 H (1.3-7.7) k/uL Lymphocytes # 0.9 L (1.0-4.8) k/uL Monocytes # 1.4 H (0-1.0) k/uL PT (9.0-12.0) sec INR (<1.2) APTT (22.0-30.0) sec Sodium 131 L (137-145) mmol/L Chloride (98-107) mmol/L BUN 47 H (9-20) mg/dL Creatinine 2.61 H (0.66-1.25) mg/dL Glucose 214 H (74-99) mg/dL POC Glucose (mg/dL) (75-99) mg/dL Plasma Lactic Acid Geoff 6.8 H* (0.7-2.0) mmol/L Calcium 6.5 L (8.4-10.2) mg/dL Total Bilirubin (0.2-1.3) mg/dL AST (17-59) U/L ALT (4-49) U/L Alkaline Phosphatase (38-126) U/L Total Protein (6.3-8.2) g/dL Albumin (3.5-5.0) g/dL 04/22/20 04/22/20 04/22/20 Range/Units 17:28 17:28 17:41 WBC (3.8-10.6) k/uL RBC (4.30-5.90) m/uL Hgb (13.0-17.5) gm/dL Hct (39.0-53.0) % RDW (11.5-15.5) % Neutrophils # (1.3-7.7) k/uL Lymphocytes # (1.0-4.8) k/uL Monocytes # (0-1.0) k/uL PT 40.0 H (9.0-12.0) sec INR 4.2 H (<1.2) APTT >200.0 H* (22.0-30.0) sec Sodium (137-145) mmol/L Chloride (98-107) mmol/L BUN (9-20) mg/dL Creatinine (0.66-1.25) mg/dL Glucose (74-99) mg/dL POC Glucose (mg/dL) (75-99) mg/dL Plasma Lactic Acid Geoff 3.0 H* (0.7-2.0) mmol/L Calcium (8.4-10.2) mg/dL Total Bilirubin (0.2-1.3) mg/dL AST (17-59) U/L ALT (4-49) U/L Alkaline Phosphatase (38-126) U/L Total Protein (6.3-8.2) g/dL Albumin (3.5-5.0) g/dL 04/23/20 04/23/20 04/23/20 Range/Units 04:00 04:00 04:00 WBC 25.0 H (3.8-10.6) k/uL RBC 3.98 L (4.30-5.90) m/uL Hgb 11.0 L (13.0-17.5) gm/dL Hct 33.2 L (39.0-53.0) % RDW 21.3 H (11.5-15.5) % Neutrophils # 22.5 H (1.3-7.7) k/uL Lymphocytes # 0.4 L (1.0-4.8) k/uL Monocytes # 1.8 H (0-1.0) k/uL PT 18.9 H (9.0-12.0) sec INR 1.9 H (<1.2) APTT 35.7 H (22.0-30.0) sec Sodium 133 L (137-145) mmol/L Chloride 97 L (98-107) mmol/L BUN 50 H (9-20) mg/dL Creatinine 2.45 H (0.66-1.25) mg/dL Glucose 207 H (74-99) mg/dL POC Glucose (mg/dL) (75-99) mg/dL Plasma Lactic Acid Geoff (0.7-2.0) mmol/L Calcium 6.5 L (8.4-10.2) mg/dL Total Bilirubin 3.2 H (0.2-1.3) mg/dL AST 356 H (17-59) U/L ALT 128 H (4-49) U/L Alkaline Phosphatase 184 H (38-126) U/L Total Protein 5.6 L (6.3-8.2) g/dL Albumin 2.5 L (3.5-5.0) g/dL Assessment and Plan (1) Peripheral vascular occlusive disease Current Visit: Yes Status: Acute Code(s): I73.9 - PERIPHERAL VASCULAR DISEASE, UNSPECIFIED SNOMED Code(s): 117957069 (2) Sepsis Current Visit: Yes Status: Acute Code(s): A41.9 - SEPSIS, UNSPECIFIED ORGANISM SNOMED Code(s): 00774978 (3) Cholecystitis Current Visit: Yes Status: Acute Code(s): K81.9 - CHOLECYSTITIS, UNSPECIFIED SNOMED Code(s): 21301271 (4) Sludge in gallbladder Current Visit: Yes Status: Acute Code(s): K82.8 - OTHER SPECIFIED DISEASES OF GALLBLADDER SNOMED Code(s): 90412710 (5) Coagulopathy Current Visit: No Status: Acute Priority: High Code(s): D68.9 - COAGULATION DEFECT, UNSPECIFIED SNOMED Code(s): 78743090 (6) Elevated liver enzymes Current Visit: No Status: Acute Code(s): R74.8 - ABNORMAL LEVELS OF OTHER SERUM ENZYMES SNOMED Code(s): 009328260 (7) Lactic acidosis Current Visit: No Status: Acute Code(s): E87.2 - ACIDOSIS SNOMED Code(s): 40273484 (8) Pleural effusion Current Visit: No Status: Acute Code(s): J90 - PLEURAL EFFUSION, NOT ELSEWHERE CLASSIFIED SNOMED Code(s): 58654606 (9) Transaminitis Current Visit: No Status: Resolved Priority: High Code(s): R74.01 - ELEVAT ION OF LEVELS OF LIVER TRANSAMINASE LEVELS SNOMED Code(s): 710621410
--- NOTE | 2020-04-23 12:46 | P.PN ---
Progress Note - Text Progress Note Date: 04/23/20 I personally spoke to his vascular surgeon Dr Delgadillo and Dr. Farah regarding overall clinical status. Patient's lactic acid has improved with fluid hydration. No additional aortogram at this time per Dr. Delgadillo as patient has previous patent 2/3 vessel disease. Surgical options discussed with Dr. Farah with no emergent surgical intervention at this time as he is clinically improving. Continue resuscitation including antibiotics.
--- NOTE | 2020-04-23 13:14 | P.PN ---
Subjective Progress Note Date: 04/23/20 Follow-up for acute kidney injury. Good urine output. Objective - Vital Signs Vital signs: Vital Signs Temp 96.3 F L 04/23/20 08:00 Pulse 87 04/23/20 12:00 Resp 12 04/23/20 12:00 BP 105/62 04/22/20 16:00 Pulse Ox 95 04/23/20 12:00 Intake & Output 04/22/20 04/23/20 04/23/20 18:59 06:59 18:59 Intake Total 775 951.573 550 Output Total 237 1150 750 Balance 538 -198.427 -200 Weight 69.8 kg Intake: IV 775 925 550 Dextrose 5% in Water 1, 450 825 450 000 ml @ 75 mls/hr IV . [id number] [facility] with Sodium Bicarb (1 Meq/ml) 150 ml Rx#:[id number] Piperacillin-Tazobactam 3 200 100 100 .375 gm In Sodium Chloride 0.9% 100 ml @ 25 mls/hr IVPB Q8HR [facility] Rx# :[id number] Sodium Chloride 0.9% 1, 125 000 ml @ 125 mls/hr IV . Q8H [facility] Rx#:[id number] Intake, IV Titration 26.573 Amount Heparin Sod,Pork in 0.45% 26.573 NaCl 25,000 unit In 0.45 % NaCl 1 250ml.bag @ 12 UNITS/KG/HR 7.893 mls/hr IV .Q24H [facility] Rx#: [id number] Output: Urine 237 1150 750 Other: Voiding Method Indwelling Catheter Indwelling Catheter ABP, PAP, CO, CI - Last Documented Arterial Blood Pressure 141/61 - Exam No acute distress S1-S2 heard Decreased breath sounds Abdomen distended Trace edema - Labs CBC & Chem 7: 04/23/20 04:00 04/23/20 04:00 Labs: Abnormal Lab Results - Last 24 Hours (Table) 04/22/20 04/22/20 04/22/20 Range/Units 14:59 17:28 17:28 WBC 28.2 H (3.8-10.6) k/uL RBC 3.86 L (4.30-5.90) m/uL Hgb 10.2 L (13.0-17.5) gm/dL Hct 32.6 L (39.0-53.0) % RDW 21.3 H (11.5-15.5) % Neutrophils # 25.6 H (1.3-7.7) k/uL Lymphocytes # 0.9 L (1.0-4.8) k/uL Monocytes # 1.4 H (0-1.0) k/uL PT (9.0-12.0) sec INR (<1.2) APTT (22.0-30.0) sec Sodium 131 L (137-145) mmol/L Chloride (98-107) mmol/L BUN 47 H (9-20) mg/dL Creatinine 2.61 H (0.66-1.25) mg/dL Glucose 214 H (74-99) mg/dL Plasma Lactic Acid Geoff 6.8 H* (0.7-2.0) mmol/L Calcium 6.5 L (8.4-10.2) mg/dL Total Bilirubin (0.2-1.3) mg/dL AST (17-59) U/L ALT (4-49) U/L Alkaline Phosphatase (38-126) U/L Total Protein (6.3-8.2) g/dL Albumin (3.5-5.0) g/dL 04/22/20 04/22/20 04/22/20 Range/Units 17:28 17:28 17:41 WBC (3.8-10.6) k/uL RBC (4.30-5.90) m/uL Hgb (13.0-17.5) gm/dL Hct (39.0-53.0) % RDW (11.5-15.5) % Neutrophils # (1.3-7.7) k/uL Lymphocytes # (1.0-4.8) k/uL Monocytes # (0-1.0) k/uL PT 40.0 H (9.0-12.0) sec INR 4.2 H (<1.2) APTT >200.0 H* (22.0-30.0) sec Sodium (137-145) mmol/L Chloride (98-107) mmol/L BUN (9-20) mg/dL Creatinine (0.66-1.25) mg/dL Glucose (74-99) mg/dL Plasma Lactic Acid Geoff 3.0 H* (0.7-2.0) mmol/L Calcium (8.4-10.2) mg/dL Total Bilirubin (0.2-1.3) mg/dL AST (17-59) U/L ALT (4-49) U/L Alkaline Phosphatase (38-126) U/L Total Protein (6.3-8.2) g/dL Albumin (3.5-5.0) g/dL 04/23/20 04/23/20 04/23/20 Range/Units 04:00 04:00 04:00 WBC 25.0 H (3.8-10.6) k/uL RBC 3.98 L (4.30-5.90) m/uL Hgb 11.0 L (13.0-17.5) gm/dL Hct 33.2 L (39.0-53.0) % RDW 21.3 H (11.5-15.5) % Neutrophils # 22.5 H (1.3-7.7) k/uL Lymphocytes # 0.4 L (1.0-4.8) k/uL Monocytes # 1.8 H (0-1.0) k/uL PT 18.9 H (9.0-12.0) sec INR 1.9 H (<1.2) APTT 35.7 H (22.0-30.0) sec Sodium 133 L (137-145) mmol/L Chloride 97 L (98-107) mmol/L BUN 50 H (9-20) mg/dL Creatinine 2.45 H (0.66-1.25) mg/dL Glucose 207 H (74-99) mg/dL Plasma Lactic Acid Geoff (0.7-2.0) mmol/L Calcium 6.5 L (8.4-10.2) mg/dL Total Bilirubin 3.2 H (0.2-1.3) mg/dL AST 356 H (17-59) U/L ALT 128 H (4-49) U/L Alkaline Phosphatase 184 H (38-126) U/L Total Protein 5.6 L (6.3-8.2) g/dL Albumin 2.5 L (3.5-5.0) g/dL Assessment and Plan Assessment: #1 nonoliguric acute kidney injury secondary to septic ATN. Baseline creatinine 1.2 MG per DL. #2 chronic systolic CHF with the EF of 25% currently compensated. #3 metabolic alkalosis #4 chronic hypotension on midodrine #5 symptomatic cholelithiasis #6 hypervolemic hyponatremia Plan: #1 renal function improving. Continue to monitor. #2 stop bicarb drip #3 monitor off fluids and diuretics at this time. Auto diuresing. #4 avoid nephrotoxic agents and hypotensive episodes.
--- NOTE | 2020-04-23 13:23 | P.PN ---
Subjective Progress Note Date: 04/23/20 Principal diagnosis: abdominal pain patient seen and examined this morning. Overnight no significant changes. Patient still having pain, and nausea. Blood pressure improved overnight. Labs improving while on bicarb drip. Patient describes his pain as soreness all over. Objective - Vital Signs Vital signs: Vital Signs Temp 96.3 F L 04/23/20 08:00 Pulse 87 04/23/20 12:00 Resp 12 04/23/20 12:00 BP 105/62 04/22/20 16:00 Pulse Ox 95 04/23/20 12:00 Intake & Output 04/22/20 04/23/20 04/23/20 18:59 06:59 18:59 Intake Total 775 951.573 550 Output Total 237 1150 750 Balance 538 -198.427 -200 Weight 69.8 kg Intake: IV 775 925 550 Dextrose 5% in Water 1, 450 825 450 000 ml @ 75 mls/hr IV . [id number] [facility] with Sodium Bicarb (1 Meq/ml) 150 ml Rx#:[id number] Piperacillin-Tazobactam 3 200 100 100 .375 gm In Sodium Chloride 0.9% 100 ml @ 25 mls/hr IVPB Q8HR [facility] Rx# :[id number] Sodium Chloride 0.9% 1, 125 000 ml @ 125 mls/hr IV . Q8H [facility] Rx#:[id number] Intake, IV Titration 26.573 Amount Heparin Sod,Pork in 0.45% 26.573 NaCl 25,000 unit In 0.45 % NaCl 1 250ml.bag @ 12 UNITS/KG/HR 7.893 mls/hr IV .Q24H [facility] Rx#: [id number] Output: Urine 237 1150 750 Other: Voiding Method Indwelling Catheter Indwelling Catheter ABP, PAP, CO, CI - Last Documented Arterial Blood Pressure 141/61 - Exam Abdomen tense, +TTP. No discoloration NGT with dark output with slight red tinge - Constitutional General appearance: Present: cooperative, mild distress - EENT Eyes: Present: PERRLA - Cardiovascular Rhythm: regular - Gastrointestinal General gastrointestinal: Present: absent bowel sounds, tenderness - Psychiatric Psychiatric: Present: appropriate affect - Labs CBC & Chem 7: 04/23/20 04:00 04/23/20 04:00 Labs: Abnormal Lab Results - Last 24 Hours (Table) 04/22/20 04/22/20 04/22/20 Range/Units 14:59 17:28 17:28 WBC 28.2 H (3.8-10.6) k/uL RBC 3.86 L (4.30-5.90) m/uL Hgb 10.2 L (13.0-17.5) gm/dL Hct 32.6 L (39.0-53.0) % RDW 21.3 H (11.5-15.5) % Neutrophils # 25.6 H (1.3-7.7) k/uL Lymphocytes # 0.9 L (1.0-4.8) k/uL Monocytes # 1.4 H (0-1.0) k/uL PT (9.0-12.0) sec INR (<1.2) APTT (22.0-30.0) sec Sodium 131 L (137-145) mmol/L Chloride (98-107) mmol/L BUN 47 H (9-20) mg/dL Creatinine 2.61 H (0.66-1.25) mg/dL Glucose 214 H (74-99) mg/dL Plasma Lactic Acid Geoff 6.8 H* (0.7-2.0) mmol/L Calcium 6.5 L (8.4-10.2) mg/dL Total Bilirubin (0.2-1.3) mg/dL AST (17-59) U/L ALT (4-49) U/L Alkaline Phosphatase (38-126) U/L Total Protein (6.3-8.2) g/dL Albumin (3.5-5.0) g/dL 04/22/20 04/22/20 04/22/20 Range/Units 17:28 17:28 17:41 WBC (3.8-10.6) k/uL RBC (4.30-5.90) m/uL Hgb (13.0-17.5) gm/dL Hct (39.0-53.0) % RDW (11.5-15.5) % Neutrophils # (1.3-7.7) k/uL Lymphocytes # (1.0-4.8) k/uL Monocytes # (0-1.0) k/uL PT 40.0 H (9.0-12.0) sec INR 4.2 H (<1.2) APTT >200.0 H* (22.0-30.0) sec Sodium (137-145) mmol/L Chloride (98-107) mmol/L BUN (9-20) mg/dL Creatinine (0.66-1.25) mg/dL Glucose (74-99) mg/dL Plasma Lactic Acid Geoff 3.0 H* (0.7-2.0) mmol/L Calcium (8.4-10.2) mg/dL Total Bilirubin (0.2-1.3) mg/dL AST (17-59) U/L ALT (4-49) U/L Alkaline Phosphatase (38-126) U/L Total Protein (6.3-8.2) g/dL Albumin (3.5-5.0) g/dL 04/23/20 04/23/20 04/23/20 Range/Units 04:00 04:00 04:00 WBC 25.0 H (3.8-10.6) k/uL RBC 3.98 L (4.30-5.90) m/uL Hgb 11.0 L (13.0-17.5) gm/dL Hct 33.2 L (39.0-53.0) % RDW 21.3 H (11.5-15.5) % Neutrophils # 22.5 H (1.3-7.7) k/uL Lymphocytes # 0.4 L (1.0-4.8) k/uL Monocytes # 1.8 H (0-1.0) k/uL PT 18.9 H (9.0-12.0) sec INR 1.9 H (<1.2) APTT 35.7 H (22.0-30.0) sec Sodium 133 L (137-145) mmol/L Chloride 97 L (98-107) mmol/L BUN 50 H (9-20) mg/dL Creatinine 2.45 H (0.66-1.25) mg/dL Glucose 207 H (74-99) mg/dL Plasma Lactic Acid Geoff (0.7-2.0) mmol/L Calcium 6.5 L (8.4-10.2) mg/dL Total Bilirubin 3.2 H (0.2-1.3) mg/dL AST 356 H (17-59) U/L ALT 128 H (4-49) U/L Alkaline Phosphatase 184 H (38-126) U/L Total Protein 5.6 L (6.3-8.2) g/dL Albumin 2.5 L (3.5-5.0) g/dL Assessment and Plan Assessment: 1. Sepsis secondary to acute enteritis 2. Possible non occlusive mesenteric ischemia 3. Acute kidney injury Plan: Reviewed repeat CT abdomen which demonstrates improved appearance of the bowel and surrounding mesenteric tissue. Patients labs slightly improved with medical management. Discussed case again with general surgery for possible intervention- no intervention at this time secondary to patient improving. Continue medical support.
[2020-04-23] MEDS: SODIUM CHLORIDE 0.9% 1,000 ML IV SCH (14:51)
[2020-04-23] MEDS: metroNIDAZOLE-NS PMX 500 MG in SALINE 1 100ML.BAG IVPB SCH ×2 (17:17→23:54)
--- NOTE | 2020-04-23 20:10 | P.PN ---
Progress Note - Text Progress Note Date: 04/23/20 Presenting complaint Chest pain: Interval course: Patient was recently in the hospital with ischemic colitis with resultant hypotension lactic acidosis ischemic hepatitis, acute CHF exacerbation was admitted to the ICU. Now presented with chest pain. Found to be atypical. Negative troponins. Ultrasound of the abdomen showed gallbladder sludge. Suspicion for acute cholecystitis. Followed by surgery. No history of carotid artery disease. Known EF of 30-35%. Also atrial fibrillation, hyperlipidemia, AICD. April 20-surgery was postponed for a sodium of 127 by anesthesia. Patient was given salt tablet fluid restriction and held of free fluid. Following day sodium went to 128. Nephrology consulted. Ordered Samsca. On April 22 patient had increasing abdominal pain. Worsening renal function. Lactic acidosis. Moved to ICU. Started IV Zosyn. IV fluids. Bicarbonate drip. Hypothermic. Today-ICU: patient is abdominal pain is fluctuating. When I saw him this afternoon is having no pain. No vomiting today. No fever no chills. His temperature has come up. Reclining in bed. Tired. Good urine output Review of systems: Was done for constitutional, cardiovascular, GI, pulmonary. relevant finding as above Active Medications Al Hydroxide/Mg Hydroxide (Mag Hydrox/Al Hydrox/Simeth 30 Ml Cup) 30 ml PO Q4HR PRN PRN Reason: GI Upset Last Admin: 04/18/20 00:31 Dose: 30 ml Documented by: Hydromorphone HCl (Hydromorphone 1 Mg/Ml 1 Ml Syringe) 1 mg IVP Q3HR PRN PRN Reason: Pain Last Admin: 04/23/20 06:31 Dose: 1 mg Documented by: Piperacillin Sod/Tazobactam (Sod 3.375 gm/ Sodium Chloride) 100 mls @ 25 mls/hr IVPB Q8HR [facility] Last Admin: 04/23/20 17:17 Dose: 25 mls/hr Documented by: Sodium Chloride (Saline 0.9%) 1,000 mls @ 50 mls/hr IV .Q20H [facility] Last Admin: 04/23/20 14:51 Dose: 50 mls/hr Documented by: Metronidazole 500 mg/ IV (Solution) 100 mls @ 100 mls/hr IVPB Q8HR [facility] Last Admin: 04/23/20 17:17 Dose: 100 mls/hr Documented by: Lidocaine HCl (Lidocaine 1% (10mg/Ml) For Iv Start) 0.1 ml INTRADERMA PER SC OTOCOL PRN PRN Reason: IV Start Metoprolol Succinate (Metoprolol Succinate (Er) 25 Mg Tab.Er.24h) 25 mg PO DAILY [facility] Last Admin: 04/23/20 09:13 Dose: Not Given Documented by: Midodrine (Midodrine 5 Mg Tab) 5 mg PO AC-TID [facility] Last Admin: 04/23/20 17:20 Dose: Not Given Documented by: Nitroglycerin (Nitroglycerin Sl Tabs 0.4 Mg Tab) 0.4 mg SUBLINGUAL Q5M PRN PRN Reason: Chest Pain Last Admin: 04/17/20 20:06 Dose: 0.4 mg Documented by: Ondansetron HCl (Ondansetron 4 Mg/2 Ml Vial) 4 mg IVP Q6HR PRN PRN Reason: Nausea And Vomiting Last Admin: 04/23/20 00:40 Dose: 4 mg Documented by: Pantoprazole Sodium (Pantoprazole 40 Mg/10 Ml Vial) 40 mg IV DAILY [facility] Last Admin: 04/23/20 08:57 Dose: 40 mg Documented by: On examination: VITAL SIGNS: 96.3, 87, 12, 127/61, 94% on 4 L GENERAL APPEARANCE: Reclining in bed, awake, uncomfortable HEENT: Normal external appearance of nose and ear. Oral cavity normal EYES: Pupils equal. Conjunctiva normal. NECK: JVD not raised. Mass not palpable. RESPIRATORY: Respiratory effort normal. Lungs clear to auscultation. CARDIOVASCULAR: Heart sounds irregular. No edema. ABDOMEN: Soft. Liver and spleen not palpable. Upper abdominal tenderness, no obvious guarding rigidity. No mass palpable. PSYCHIATRY: Alert and oriented x3. Mood and affect anxious. Investigations: April 23: White count 25 hemoglobin 11 increased neutrophils INR 1.9 potassium 4.2 bicarb 29 bun 50 creatinine 2.45 AST 356 ALT 128 Computed tomography scan of the abdomen-persistent but improved wall thickening involving the duodenum and proximal jejunum. April 22: White count 31.7 hemoglobin 11.7 potassium 5.7 bun 44 creatinine 2.64 bicarb 11 lactic acid 12.6 AST 544 ALT 144 Computed tomography scan abdomen and pelvis-mild to moderate acute enteritis in volving the duodenum and proximal jejunum April 21: Sodium 128 bun 29 creatinine 1.58. Serum osmolality 282 White count 8.6 hemoglobin 12.7 platelets 298 sodium 127 potassium 4.7 creatinine 1.26 Coronavirus [PCR]-not detected EKG tracing-left bundle-branch block pattern Assessment: -Acute enteritis involving the duodenum and proximal jejunum. This could be a hypotensive episode/etiology. With hydration that seems to have getting better. Discussed with Dr. Delgadillo from vascular. There is no significant vascular disease.. -Acute metabolic acidosis from worsening renal function-improve -Acute kidney injury, ATN severe-stabilized -Acute ischemic hepatitis- leveled off -Acute lactic acidosis likely combination of type I-type II-improving -Hyperkalemia-worsening -Acute cholecystitis, pending surgery -Hyponatremia, suspect hypervolemia from CHF. Normal osmolar. Slow to respond -Chest pain-felt to be noncardiac -Coronary artery disease with cardiac cath in February 2020 revealing c hronically occluded RCA extensive [id number] collaterals etc. -Chronic congestive heart failure from systolic dysfunction EF 25-30% -Paroxysmal atrial fibrillation chronically on eliquis -AICD for ventricular tachycardia Plan: In the ICU. Remains on IV Flagyl IV Zosyn. IV fluids. Localized perforation still in the differential-at this point is less likely but cannot be ruled out. General surgery is on the case. As discussed with Dr. Delgadillo does not appear to be a vascular event. Most likely global hypotensive episode. This could have been precipitated by a localized perforation. Again would have expected the patient to be much worse today. We'll let general surgery take a decision about taking the patient to surgery. Meantime continue with supportive care. i spent today about 50 minutes with over 25 minutes of discussion
[2020-04-24 05:09] LABS: INR 1.6 (<1.2)
[2020-04-24 05:15] LABS: Albumin 2.5 g/dL (3.5-5.0); Calcium 6.9 mg/dL (8.4-10.2); Potassium 2.9 mmol/L (3.5-5.1); Total Bilirubin 4.3 mg/dL (0.2-1.3); Total Protein 5.6 g/dL (6.3-8.2)
[2020-04-24 05:22] LABS: Anisocytosis Moderate; Basophils % (A) 0 %; Eosinophils % (A) 0 %; HCT 34.3 % (39.0-53.0); Hypochromasia Slight; Lymphocytes # (A) 0.7 k/uL (1.0-4.8); Lymphocytes % (A) 4 %; MCHC 32.1 g/dL (31.0-37.0); MCV 84.1 fL (80.0-100.0); Mean Platelet Volume 9.2; Microcytosis Slight; Monocytes # (A) 0.8 k/uL (0-1.0); Monocytes % (A) 4 %; Neutrophils # (A) 16.8 k/uL (1.3-7.7); Neutrophils % (A) 90 %; Platelet Count 138 k/uL (150-450); Poikilocytosis Slight; RBC 4.08 m/uL (4.30-5.90); RDW 21.6 % (11.5-15.5); WBC 18.6 k/uL (3.8-10.6)
[2020-04-24] MEDS: METOPROLOL SUCCINATE (ER) 25 MG TAB.ER.24H PO SCH (09:51)
[2020-04-24] MEDS: MIDODRINE 5 MG TAB PO SCH ×3 (09:51→17:05)
[2020-04-24] MEDS: POTASSIUM CHLORIDE 20 MEQ in WATER FOR INJECTION 1 100ML.BAG IVPB SCH ×4 (10:00→20:09)
[2020-04-24] MEDS: metroNIDAZOLE-NS PMX 500 MG in SALINE 1 100ML.BAG IVPB SCH ×3 (10:00→23:34)
[2020-04-24] MEDS: PIPERACILLIN-TAZOBACTAM 3.375 GM in SODIUM CHLORIDE 0.9% 100 ML IVPB SCH ×3 (10:00→23:34)
[2020-04-24] MEDS: PANTOPRAZOLE 40 MG/10 ML VIAL IV SCH (10:01)
[2020-04-24] MEDS: ONDANSETRON 4 MG/2 ML VIAL IVP PRN (10:01)
[2020-04-24] MEDS: SODIUM CHLORIDE 0.9% 1,000 ML IV SCH (10:08)
--- NOTE | 2020-04-24 11:31 | P.PN ---
Subjective Progress Note Date: 04/24/20 Principal diagnosis: Cholecystitis and sepsis. Progress note dated 04/23/2020. This is a 70-year-old male who presented to the emergency department on April 17, at 1020 in the morning. The patient's complaints include primarily chest and abdominal pain. It began the night prior about 12 hours earlier. It's sharp constant consistent pain in the lower right chest area and right upper abdominal area. The patient denies any trauma to this area. The pain was so bad, he could not sleep. In addition, the patient does admit to being mildly short of breath. There are no fever or chills. He denied any nausea, vomiting, or diarrhea. The patient was recently inpatient for pulmonary edema and ascites. The patient was evaluated and discovered to have acute cholecystitis. The patient was to have surgery but apparently the sodium was low and so the surgery was canceled. I was up on the floor seeing other patients today, and the primary service asked me to see Mr. Obrien. They were concerned about sepsis. The patient was hypotensive, and hypothermic. In addition, his lactic acid had risen to above 12. For that reason, the patient was admitted to my list, the patient was transferred down to the intensive care unit for further evaluation and management. The patient's white count jumped up to 31.7, hemoglobin 11.7, hematocrit 37.5, and platelet count was normal. Sodium was 130, potassium 5.7, chloride 73, CO2 11, anion gap was 26, and BUN and creatinine were 44 and 2.64. These labs are consistent with a anion gap metabolic acidosis, secondary to renal failure and lactic acidemia. The patient's AST was 544, ALT 144, and alkaline phosphatase was 205. Bilirubin was elevated at 3.0. Chest x-ray today showed bilateral areas of atelectasis, pneumonia, edema, and effusions. CT of the abdomen and pelvis revealed evidence of moderate acute enteritis involving the duodenum and proximal jejunum, bilateral lower pleural effusions, and associated compressive atelectasis. The patient was only started on antibiotics today. Progress note dated 04/24/2020. 70-year-old male who presented to the emergency department on April 17 with chest and abdominal pain. The patient was found to have acute cholecystitis. The patient was transferred to the intensive care unit yesterday. I placed an art line and a central line. He has a left internal jugular triple-lumen catheter, and a left radial art line. Both were placed for fluid administration, vasopressor administration, blood draws, and better control and evaluation of his blood pressure. The patient has been seen by surgery and also by vascular surgery. Currently, and NG tube is in place. The patient's getting nasal O2 at 4 L. The patient's getting D5W with 3 ampules of sodium bicarbonate at 75 mL an hour. His current antibiotic is Zosyn. White blood count is 25,000, hemoglobin 11, hematocrit 33.2, and platelet count 200,000. PT is 18.9 INR is 1.9 and PTT is 35.7. Sodium 133, potassium 4.2, chloride 97, CO2 29, anion gap 7, and a BUN and creatinine 50 and 2.45 respectively. In addition, his lactic acid which was as high as 12.6 yesterday, is now down to 1.4 this with fluid administration and antibiotics. Chest x-ray shows bilateral scattered airspace disease. Central line is in good position. CT of the abdomen shows mild to moderate acute enteritis involving the duodenum and proximal jejunum. Progress note dated 04/25/2020. 70-year-old male who presented to the emergency department on April 17, with abdominal pain. The patient was found to have acute cholecystitis. He was transferred to the intensive care unit a couple days ago. On Saturday, I placed a central line, and an arterial line. Currently, the patient is may be a bit better today than yesterday. He still on O2 at 4 L by nasal cannula. His IV is saline at 50 mL an hour, and he has an NG tube in place. The patient's sodium is back to normal, but unfortunately, his potassium was 2.9. That's being replaced. He still having quite a bit of abdominal pain. Tends to localize in the right upper quadrant. It is diffuse as well though. The patient is getting depressed about being in the hospital for some many days. He verbalizes that he just wants something done. White blood count is down to 18.6 from 25, hemoglobin 11, hematocrit 34.3, and platelet count 138,000. PT is 16 with an INR of 1.6. Sodium is 143, potassium 2.9, chlorides 102, CO2 33, anion gap 8, BUN 40, and creatinine 1.93, down from 2.45. Most recent lactic acid is 1.4, which is down from 3.0. Liver function tests, are also somewhat improved. Objective - Vital Signs Vital signs: Vital Signs Temp 97.7 F 04/24/20 08:00 Pulse 96 04/24/20 08:00 Resp 19 04/24/20 08:00 BP 105/62 04/22/20 16:00 Pulse Ox 97 04/24/20 08:00 Intake & Output 04/23/20 04/24/20 04/24/20 18:59 06:59 18:59 Intake Total 875 675 50 Output Total 1650 2100 1000 Balance -324 -2617 -950 Weight 69.7 kg Intake: IV 875 675 50 [id number] 75 Dextrose 5% in Water 1, 450 000 ml @ 75 mls/hr IV . [id number] [facility] with Sodium Bicarb (1 Meq/ml) 150 ml Rx#:[id number] NACL 250 550 50 Piperacillin-Tazobactam 3 100 25 .375 gm In Sodium Chloride 0.9% 100 ml @ 25 mls/hr IVPB Q8HR [facility] Rx# :[id number] PMX 500 100 mg In Saline 1 100ml.bag @ 100 mls/hr IVPB Q8HR [facility] Rx#:[id number] Output: Gastric Drainage 300 1000 Urine 1650 1800 Other: Voiding Method Indwelling Catheter Indwelling Catheter ABP, PAP, CO, CI - Last Documented Arterial Blood Pressure 118/55 - Exam Moderately severe abdominal pain, oriented 3. The patient is lying supine, NG tube in place, now on nasal cannula 4 L. HEENT examination is grossly unremarkable. Mucous membranes are moist. No oral lesions. Neck supple. Full range of motion. No adenopathy thyromegaly or neck vein distention. Cardiovascular examination reveals regular rhythm rate. S1-S2 normal. No S3 or S4. No discernible murmur noted. Heart rate is 96 bpm. Lungs reveal bilateral rhonchi and lower lobe crackles. Breath sounds equal bilaterally. Abdomen very tender to touch, particularly in the area of the right upper quadrant. No bowel sounds are noted. Extremities are intact. No cyanosis clubbing or edema. Skin is without rash or lesion. Neurologic examination is brief but nonfocal. - Labs CBC & Chem 7: 04/24/20 04:45 04/24/20 04:45 Labs: Abnormal Lab Results - Last 24 Hours (Table) 04/24/20 04/24/20 04/24/20 Range/Units 04:45 04:45 04:45 WBC 18.6 H (3.8-10.6) k/uL RBC 4.08 L (4.30-5.90) m/uL Hgb 11.0 L (13.0-17.5) gm/dL Hct 34.3 L (39.0-53.0) % RDW 21.6 H (11.5-15.5) % Plt Count 138 L (150-450) k/uL Neutrophils # 16.8 H (1.3-7.7) k/uL Lymphocytes # 0.7 L (1.0-4.8) k/uL PT 16.0 H (9.0-12.0) sec INR 1.6 H (<1.2) Potassium 2.9 L (3.5-5.1) mmol/L Carbon Dioxide 33 H (22-30) mmol/L BUN 40 H (9-20) mg/dL Creatinine 1.93 H (0.66-1.25) mg/dL Glucose 132 H (74-99) mg/dL Calcium 6.9 L (8.4-10.2) mg/dL Total Bilirubin 4.3 H (0.2-1.3) mg/dL AST 224 H (17-59) U/L ALT 104 H (4-49) U/L Alkaline Phosphatase 188 H (38-126) U/L Total Protein 5.6 L (6.3-8.2) g/dL Albumin 2.5 L (3.5-5.0) g/dL Assessment and Plan Assessment: Sepsis, secondary to suspected acute cholecystitis/enteritis. Hypothermia, and hypotension, secondary to suspected sepsis, improved. Possible small bowel ischemic/inflammatory changes. History of acute kidney injury. Lactic acidemia, much improved. Hyponatremia. History of chronic atrial fibrillation. History of CAD, status post stent placement. History of hyperlipidemia. History of essential hypertension. History of myocardial infarction. History of pneumonia. History of previous cardiac ablation and AICD/PM placement. Plan: Plan dated 04/24/2020. The patient may be a bit better today than yesterday. He still feeling pretty miserable, and is somewhat depressed about the fact that he's been in the hospital so many times recently. He just wants something done. His saline IV is running at 50 mL an hour. NG tube is in place. He is on nasal O2 at 4 L. His potassium is 2.9 and that will be corrected. Hopefully, he can go to the operating room tomorrow, April 25. I did call the surgeon and gave him an update. He has a left radial arterial line and a left internal jugular triple- lumen catheter, which was placed on Saturday. We'll continue to follow make appropriate recommendations. He remains on Flagyl and Zosyn. Microbiologic studies are currently negative or pending. Time with Patient: Greater than 30
--- NOTE | 2020-04-24 12:10 | P.PN ---
Subjective Progress Note Date: 04/24/20 Follow-up for acute kidney injury. Good urine output. Objective - Vital Signs Vital signs: Vital Signs Temp 97.9 F 04/24/20 09:00 Pulse 99 04/24/20 11:00 Resp 12 04/24/20 11:00 BP 105/62 04/22/20 16:00 Pulse Ox 94 L 04/24/20 11:00 Intake & Output 04/23/20 04/24/20 04/24/20 18:59 06:59 18:59 Intake Total 875 675 700 Output Total 1650 2100 1275 Balance -726 -1425 -575 Weight 69.7 kg Intake: IV 875 675 700 D50.9NACL 75 Dextrose 5% in Water 1, 450 000 ml @ 75 mls/hr IV . [id number] [facility] with Sodium Bicarb (1 Meq/ml) 150 ml Rx#:[id number] NACL 250 550 300 Piperacillin-Tazobactam 3 100 25 100 .375 gm In Sodium Chloride 0.9% 100 ml @ 25 mls/hr IVPB Q8HR [facility] Rx# :[id number] Potassium Chloride 20 meq 200 In Water For Injection 1 100ml.bag @ 50 mls/hr IVPB Q2H [facility] Rx#: [id number] metroNIDAZOLE-NS PMX 500 100 100 mg In Saline 1 100ml.bag @ 100 mls/hr IVPB Q8HR [facility] Rx#:[id number] Output: Gastric Drainage 300 1000 Urine 1650 1800 275 Other: Voiding Method Indwelling Catheter Indwelling Catheter ABP, PAP, CO, CI - Last Documented Arterial Blood Pressure 123/55 - Exam No acute distress S1-S2 heard Decreased breath sounds Abdomen distended Trace edema - Labs CBC & Chem 7: 04/24/20 04:45 04/24/20 04:45 Labs: Abnormal Lab Results - Last 24 Hours (Table) 04/24/20 04/24/20 04/24/20 Range/Units 04:45 04:45 04:45 WBC 18.6 H (3.8-10.6) k/uL RBC 4.08 L (4.30-5.90) m/uL Hgb 11.0 L (13.0-17.5) gm/dL Hct 34.3 L (39.0-53.0) % RDW 21.6 H (11.5-15.5) % Plt Count 138 L (150-450) k/uL Neutrophils # 16.8 H (1.3-7.7) k/uL Lymphocytes # 0.7 L (1.0-4.8) k/uL PT 16.0 H (9.0-12.0) sec INR 1.6 H (<1.2) Potassium 2.9 L (3.5-5.1) mmol/L Carbon Dioxide 33 H (22-30) mmol/L BUN 40 H (9-20) mg/dL Creatinine 1.93 H (0.66-1.25) mg/dL Glucose 132 H (74-99) mg/dL Calcium 6.9 L (8.4-10.2) mg/dL Total Bilirubin 4.3 H (0.2-1.3) mg/dL AST 224 H (17-59) U/L ALT 104 H (4-49) U/L Alkaline Phosphatase 188 H (38-126) U/L Total Protein 5.6 L (6.3-8.2) g/dL Albumin 2.5 L (3.5-5.0) g/dL Assessment and Plan Assessment: #1 nonoliguric acute kidney injury secondary to septic ATN. Baseline creatinine 1.2 MG per DL. #2 chronic systolic CHF with the EF of 25% currently compensated. #3 metabolic alkalosis #4 chronic hypotension on midodrine #5 symptomatic cholelithiasis #6 hypervolemic hyponatremia, resolved. Plan: #1 renal function improving. Continue to monitor. #2 stop saline and replace potassium. #3 monitor off fluids and diuretics at this time. Auto diuresing. #4 avoid nephrotoxic agents and hypotensive episodes.
--- NOTE | 2020-04-24 13:54 | P.PN ---
Subjective Progress Note Date: 04/24/20 CHIEF COMPLAINT: Generalized abdominal pain HISTORY OF PRESENT ILLNESS: The patient is a 70-year-old male admitted 04/17/2020 for chest pain. He was being evaluated for cholecystitis. He is in intensive care unit for sepsis. He had several CT scans in the last 5 days. Today, he reports, "I don't have pain!" He is tolerating ice chips. He reports being better today than yesterday. "I want more ice chips." He denies wanting to eat any more. ROS: No fevers or chills. No shortness of breath. He has AICD. History of anticoagulation supratherapuetic. PHYSICAL EXAM: VITAL SIGNS: Reviewed CONSTITUTIONAL: Well developed and in no acute distress. Appears comfortable. EYES: Conjuctivae without sclera icterus. Extraocular movements grossly intact. HEAD, EARS, NOSE, THROAT: Moist buccal mucosa. Head is atraumatic, normocephalic. Hears conversational speech. No nasal drainage. NECK: Supple. No thyroidomegaly. RESPIRATORY: Non-labored respirations and equal bilateral excursions. CARDIOVASCULAR: Palpable 2+ radial pulses. ABDOMEN: No rigidity or peritonitis. No abdominal scarring. MUSCULOSKELETAL: No gross deformity of the lower extremities noted. No clubbing. No cyanosis. SKIN: Good skin turgor. Well perfused. NEUROLOGIC: Cranial nerves II through XII grossly intact. No focal or lateralizing signs. PSYCH: Appropriate affect. Alert and oriented to person, place and time. CLINICAL LABS: White blood cell count 25,000 down from 28,000, now over 18,000. Total bilirubin and LFTs more elevated than yesterday. RADIOLOGY: Report of CT of the abdomen pelvis 04/23/2020 with improvement of enteritis. ASSESSMENT: 1. Sepsis with lactic acidosis 2. Gallstones 3. Elevated liver enzymes 4. Chronic anticoagulation 5. Peripheral vascular occlusive disease. PLAN: 1. He has moderate improvement from his abdominal pain in the last 24 to 48 hrs. 2. LFTs and bilirubin are worsening. He has symptomatic gallstones for which cholecystectomy is advised. He is elevated surgical risk due to peripheral vascular occlussive disease with recent sepsis Objective - Vital Signs Vital signs: Vital Signs Temp 98.1 F 04/24/20 12:00 Pulse 98 04/24/20 13:00 Resp 35 H 04/24/20 13:00 BP 105/62 04/22/20 16:00 Pulse Ox 96 04/24/20 13:00 Intake & Output 04/23/20 04/24/20 04/24/20 18:59 06:59 18:59 Intake Total 875 675 700 Output Total 1650 2100 1275 Balance -775 -1425 -575 Weight 69.7 kg Intake: IV 875 675 700 D50.9NACL 75 Dextrose 5% in Water 1, 450 000 ml @ 75 mls/hr IV . [id number] [facility] with Sodium Bicarb (1 Meq/ml) 150 ml Rx#:[id number] NACL 250 550 300 Piperacillin-Tazobactam 3 100 25 100 .375 gm In Sodium Chloride 0.9% 100 ml @ 25 mls/hr IVPB Q8HR [facility] Rx# :[id number] Potassium Chloride 20 meq 200 In Water For Injection 1 100ml.bag @ 50 mls/hr IVPB Q2H [facility] Rx#: [id number] metroNIDAZOLE-NS PMX 500 100 100 mg In Saline 1 100ml.bag @ 100 mls/hr IVPB Q8HR [facility] Rx#:[id number] Output: Gastric Drainage 300 1000 Urine 1650 1800 275 Other: Voiding Method Indwelling Catheter Indwelling Catheter Indwelling Catheter ABP, PAP, CO, CI - Last Documented Arterial Blood Pressure 128/58 - Labs CBC & Chem 7: 04/24/20 04:45 04/24/20 04:45 Labs: Abnormal Lab Results - Last 24 Hours (Table) 04/24/20 04/24/20 04/24/20 Range/Units 04:45 04:45 04:45 WBC 18.6 H (3.8-10.6) k/uL RBC 4.08 L (4.30-5.90) m/uL Hgb 11.0 L (13.0-17.5) gm/dL Hct 34.3 L (39.0-53.0) % RDW 21.6 H (11.5-15.5) % Plt Count 138 L (150-450) k/uL Neutrophils # 16.8 H (1.3-7.7) k/uL Lymphocytes # 0.7 L (1.0-4.8) k/uL PT 16.0 H (9.0-12.0) sec INR 1.6 H (<1.2) Potassium 2.9 L (3.5-5.1) mmol/L Carbon Dioxide 33 H (22-30) mmol/L BUN 40 H (9-20) mg/dL Creatinine 1.93 H (0.66-1.25) mg/dL Glucose 132 H (74-99) mg/dL Calcium 6.9 L (8.4-10.2) mg/dL Total Bilirubin 4.3 H (0.2-1.3) mg/dL AST 224 H (17-59) U/L ALT 104 H (4-49) U/L Alkaline Phosphatase 188 H (38-126) U/L Total Protein 5.6 L (6.3-8.2) g/dL Albumin 2.5 L (3.5-5.0) g/dL Assessment and Plan (1) Peripheral vascular occlusive disease Current Visit: Yes Status: Acute Code(s): I73.9 - PERIPHERAL VASCULAR DISEASE, UNSPECIFIED SNOMED Code(s): 140073992 (2) Sepsis Current Visit: Yes Status: Acute Code(s): A41.9 - SEPSIS, UNSPECIFIED ORGANISM SNOMED Code(s): 98764973 (3) Cholecystitis Current Visit: Yes Status: Acute Code(s): K81.9 - CHOLECYSTITIS, UNSPECIFIED SNOMED Code(s): 13444040 (4) Sludge in gallbladder Current Visit: Yes Status: Acute Code(s): K82.8 - OTHER SPECIFIED DISEASES OF GALLBLADDER SNOMED Code(s): 31359284 (5) Coagulopathy Current Visit: No Status: Acute Priority: High Code(s): D68.9 - COAGULATION DEFECT, UNSPECIFIED SNOMED Code(s): 71096485 (6) Elevated liver enzymes Current Visit: No Status: Acute Code(s): R74.8 - ABNORMAL LEVELS OF OTHER SERUM ENZYMES SNOMED Code(s): 764017667 (7) Lactic acidosis Current Visit: No Status: Acute Code(s): E87.2 - ACIDOSIS SNOMED Code(s): 75519807 (8) Pleural effusion Current Visit: No Status: Acute Code(s): J90 - PLEURAL EFFUSION, NOT ELSEWHERE CLASSIFIED SNOMED Code(s): 94283105 (9) Transaminitis Current Visit: No Status: Resolved Priority: High Code(s): R74.01 - ELEVATION OF LEVELS OF LIVER TRANSAMINASE LEVELS SNOMED Code(s): 376514304
--- NOTE | 2020-04-24 14:13 | P.PN ---
Subjective Progress Note Date: 04/24/20 Principal diagnosis: abdominal pain Some improvement in overall appearance and labs. Patient has had multiple CT scans with last one showing some improvement. Surgery, nephrology and critical care notes reviewed. Objective - Vital Signs Vital signs: Vital Signs Temp 98.1 F 04/24/20 12:00 Pulse 98 04/24/20 13:00 Resp 35 H 04/24/20 13:00 BP 105/62 04/22/20 16:00 Pulse Ox 96 04/24/20 13:00 Intake & Output 04/23/20 04/24/20 04/24/20 18:59 06:59 18:59 Intake Total 875 675 700 Output Total 1650 2100 1275 Balance -775 -1425 -575 Weight 69.7 kg Intake: IV 875 675 700 D50.9NACL 75 Dextrose 5% in Water 1, 450 000 ml @ 75 mls/hr IV . [id number] [facility] with Sodium Bicarb (1 Meq/ml) 150 ml Rx#:[id number] NACL 250 550 300 Piperacillin-Tazobactam 3 100 25 100 .375 gm In Sodium Chloride 0.9% 100 ml @ 25 mls/hr IVPB Q8HR [facility] Rx# :[id number] Potassium Chloride 20 meq 200 In Water For Injection 1 100ml.bag @ 50 mls/hr IVPB Q2H [facility] Rx#: [id number] metroNIDAZOLE-NS PMX 500 100 100 mg In Saline 1 100ml.bag @ 100 mls/hr IVPB Q8HR [facility] Rx#:[id number] Output: Gastric Drainage 300 1000 Urine 1650 1800 275 Other: Voiding Method Indwelling Catheter Indwelling Catheter Indwelling Catheter ABP, PAP, CO, CI - Last Documented Arterial Blood Pressure 128/58 - Labs CBC & Chem 7: 04/24/20 04:45 04/24/20 04:45 Labs: Abnormal Lab Results - Last 24 Hours (Table) 04/24/20 04/24/20 04/24/20 Range/Units 04:45 04:45 04:45 WBC 18.6 H (3.8-10.6) k/uL RBC 4.08 L (4.30-5.90) m/uL Hgb 11.0 L (13.0-17.5) gm/dL Hct 34.3 L (39.0-53.0) % RDW 21.6 H (11.5-15.5) % Plt Count 138 L (150-450) k/uL Neutrophils # 16.8 H (1.3-7.7) k/uL Lymphocytes # 0.7 L (1.0-4.8) k/uL PT 16.0 H (9.0-12.0) sec INR 1.6 H (<1.2) Potassium 2.9 L (3.5-5.1) mmol/L Carbon Dioxide 33 H (22-30) mmol/L BUN 40 H (9-20) mg/dL Creatinine 1.93 H (0.66-1.25) mg/dL Glucose 132 H (74-99) mg/dL Calcium 6.9 L (8.4-10.2) mg/dL Total Bilirubin 4.3 H (0.2-1.3) mg/dL AST 224 H (17-59) U/L ALT 104 H (4-49) U/L Alkaline Phosphatase 188 H (38-126) U/L Total Protein 5.6 L (6.3-8.2) g/dL Albumin 2.5 L (3.5-5.0) g/dL Assessment and Plan Assessment: 1. Sepsis secondary to acute enteritis 2. Abdominal pain secondary to above. 3. Acute kidney injury 4. Global hypoperfusion 5. PAD without significant mesenteric artery occlusive disease Plan: Continue medical management. Discussed with nursing staff and possible OR per general surgery. Will continue to follow with you.
--- NOTE | 2020-04-24 16:14 | P.CONS ---
History of Present Illness - Reason for Consult Consult date: 04/24/20 enteritis Requesting physician: Vinicio Murillo - Chief Complaint chest and abdominal pain - History of Present Illness 70-year-old male with multiple medical comorbidities including hypertension, hyperlipidemia, coronary artery disease and atrial fibrillation who initially presented to the hospital with complaints of chest and abdominal pain. At that time the patient was found to have an ultrasound of the gallbladder with over sludge noted suspicion for cholecystitis. Patient recently discharged from the hospital at which time gastric erosions consultation for evaluation of elevation in liver enzymes. At that time. Neurologic evaluation including acute viral he patitis panel was negative. Patient is currently in the ICU where he is receiving treatment for acute cholecystitis and sepsis. Computed tomography scan of the abdomen during his hospitalization showed mild to moderate acute enteritis involving the duodenum and proximal jejunum. Currently the patient is on broad-spectrum antibiotic therapy. Liver enzymes have been elevated during the patient's hospitalization. Imaging did not show any evidence of choledocholithiasis or ductal dilation. Today the patient is in the ICU setting that he is not having any abdominal pain currently. The patient is on nothing by mouth diet as denying any nausea or vomiting at this time. Review of Systems REVIEW OF SYSTEMS: CONSTITUTIONAL: Denies any fevers, chills, weight change or fatigue. CARDIOVASCULAR: Denies any chest pain, palpitations high or low blood pressures RESPIRATORY: Denies any shortness of breath, hemoptysis or cough. GENITOURINARY: No dysuria or hematuria. MUSCULOSKELETAL: No weakness reported. SKIN: Denies any new rashes or lesions, jaundice or pallor. PSYCHIATRIC: Denies any depression or anxiety. NEUROLOGY: Denies headache, denies any new focal deficits. EARS/NOSE/THROAT: No recent hearing change, congestion, nasal discharge or sore throat. EYES: No pain in eyes, discharge or change in vision. Past Medical History Past Medical History: Atrial Fibrillation, Coronary Artery Disease (CAD), Hyperlipidemia, Hypertension, Myocardial Infarction (IN), Pneumonia Additional Past Medical History / Comment(s): X3 IN'S, ULCER YEARS AGO, bradycardia Last Myocardial Infarction Date:: 2004 History of Any Multi-Drug Resistant Organisms: None Reported Past Surgical History: AICD, Cardiac Ablation, Heart Catheterization With Stent, Orthopedic Surgery, Pacemaker Additional Past Surgical History / Comment(s): CARDIOVERSION, HEART STENTS X7, cardiac ablation x 2 in the past and again om 9-19-16, rt wrist surgery after injury Past Anesthesia/Blood Transfusion Reactions: No Reported Reaction Additional Past Anesthesia/Blood Transfusion Reaction / Comm: NEVER HAS HAD GENERAL ANESTHESIA Date of Last Stent Placement:: 2004 Type of Cardiac Device: AICD Device Placement Date:: 2015 Past Psychological History: No Psychological Hx Reported Smoking Status: Former smoker Past Alcohol Use History: None Reported Past Drug Use History: None Reported - Past Family History Father Additional Family Medical History / Comment(s): DAD HAD PACER BUT NO OTHER HX KNOWN Mother Family Medical History: No Reported History Additional Family Medical History / Comment(s): pt stated does'nt know medical hx on parents. Medications and Allergies Home Medications Medication Instructions Recorded Confirmed Type Metoprolol Succinate (ER) [Toprol 25 mg PO DAILY 03/11/20 04/17/20 History XL] Apixaban [Eliquis] 5 mg PO BID #60 tab 04/05/20 04/17/20 Rx Furosemide [Lasix] 40 mg PO Q48H #30 tab 04/12/20 04/17/20 Rx Midodrine [ProAmatine] 5 mg PO AC-TID #90 tab 04/12/20 04/17/20 Rx Omeprazole [PriLOSEC] 40 mg PO BID #60 cap 04/12/20 04/17/20 Rx Allergies Allergy/AdvReac Type Severity Reaction Status Date / Time No Known Allergies Allergy Verified 04/17/20 11:24 Physical Exam Vitals: Vital Signs Temp Pulse Resp Pulse Ox 04/24/20 08:00 97.7 F 96 19 97 04/24/20 07:00 98 18 95 04/24/20 06:00 98 14 95 04/24/20 05:00 97 14 93 L 04/24/20 04:00 95 12 94 L 04/24/20 03:00 96 11 L 93 L 04/24/20 02:00 94 12 93 L 04/24/20 01:00 89 15 93 L 04/24/20 00:00 97.3 F L 90 21 92 L 04/23/20 23:00 92 20 94 L 04/23/20 22:00 86 18 93 L 04/23/20 21:00 91 18 93 L 04/23/20 20:00 97.3 F L 90 18 94 L 04/23/20 19:00 92 16 94 L 04/23/20 18:00 86 10 L 94 L 04/23/20 17:00 87 12 95 04/23/20 16:32 95 04/23/20 16:00 97.3 F L 90 12 96 04/23/20 15:00 88 12 94 L 04/23/20 14:00 92 20 96 04/23/20 13:00 90 9 L 93 L 04/23/20 12:00 87 12 95 04/23/20 11:00 89 12 95 Intake and Output 04/23/20 04/24/20 04/24/20 22:59 06:59 14:59 Intake Total 400 475 50 Output Total 1525 1250 1000 Balance -9454 -051 -639 Intake: IV 400 475 50 NACL 400 350 50 Piperacillin-Tazobactam 3 25 .375 gm In Sodium Chloride 0.9% 100 ml @ 25 mls/hr IVPB Q8HR [facility] Rx# :[id number] metroNIDAZOLE-NS PMX 500 100 mg In Saline 1 100ml.bag @ 100 mls/hr IVPB Q8HR [facility] Rx#:[id number] Output: Gastric Drainage 300 1000 Urine 1225 1250 Other: Voiding Method Indwelling Catheter Indwelling Catheter Weight 69.7 kg ABP, PAP, CO, CI - Last 8 Hours Arterial Blood Pressure 118/55 Arterial Blood Pressure 119/56 Arterial Blood Pressure 123/60 Arterial Blood Pressure 123/61 Arterial Blood Pressure 128/56 Arterial Blood Pressure 126/57 On physical examination, patient appears comfortable in no apparent distress. HEAD: Normocephalic, atraumatic. EYES: No scleral icterus. No conjunctival injection. MOUTH: No lesions, tongue midline. NECK: Trachea midline, no gross abnormalities. CHEST: Clear to auscultation with no wheezing or rhonchi appreciated. HEART: S1-S2 appreciated. ABDOMEN: Soft, nontender to palpation. Bowel sounds are positive. No organomegaly. No guarding or rigidity. EXTREMITIES: bilateral pedal edema. SKIN: No rashes, no jaundice. NEUROLOGIC: Alert and oriented x3. No focal deficits. Results CBC & Chem 7: 04/24/20 04:45 04/24/20 04:45 Labs: Abnormal Lab Results - Last 24 Hours (Table) 02/07/21 02/07/21 02/07/21 Range/Units 04:45 04:45 04:45 WBC 18.6 H (3.8-10.6) k/uL RBC 4.08 L (4.30-5.90) m/uL Hgb 11.0 L (13.0-17.5) gm/dL Hct 34.3 L (39.0-53.0) % RDW 21.6 H (11.5-15.5) % Plt Count 138 L (150-450) k/uL Neutrophils # 16.8 H (1.3-7.7) k/uL Lymphocytes # 0.7 L (1.0-4.8) k/uL PT 16.0 H (9.0-12.0) sec INR 1.6 H (<1.2) Potassium 2.9 L (3.5-5.1) mmol/L Carbon Dioxide 33 H (22-30) mmol/L BUN 40 H (9-20) mg/dL Creatinine 1.93 H (0.66-1.25) mg/dL Glucose 132 H (74-99) mg/dL Calcium 6.9 L (8.4-10.2) mg/dL Total Bilirubin 4.3 H (0.2-1.3) mg/dL AST 224 H (17-59) U/L ALT 104 H (4-49) U/L Alkaline Phosphatase 188 H (38-126) U/L Total Protein 5.6 L (6.3-8.2) g/dL Albumin 2.5 L (3.5-5.0) g/dL CT scan - abdomen: report reviewed (computed tomography scan of the abdomen with bibasilar atelectasis, improving enteritis of the duodenum and jejunum and correlate for cystitis.) Assessment and Plan (1) Cholecystitis Narrative/Plan: 70-year-old male with multiple medical comorbidities presenting with chest and abdominal pain. Patient has been receiving treatment in the intensive care unit for possible septicemia related to suspected cholecystitis. Enteritis also noted on prior imaging with computed tomography scan of the abdomen yesterday showing bibasilar atelectasis, improving enteritis of the duodenum and jejunum and recommendation to correlate for cystitis. Patient previously seen on prior hospitalization for elevated liver enzymes. Currently on broad-spectrum antibiotic therapy. He is reporting improvement in his abdominal pain and the surgical service is following. Current Visit: Yes Status: Acute Code(s): K81.9 - CHOLECYSTITIS, UNSPECIFIED SNOMED Code(s): 36962854 (2) Sludge in gallbladder Current Visit: Yes Status: Acute Code(s): K82.8 - OTHER SPECIFIED DISEASES OF GALLBLADDER SNOMED Code(s): 96498734 (3) Abdominal pain Current Visit: No Status: Acute Code(s): R10.9 - UNSPECIFIED ABDOMINAL PAIN SNOMED Code(s): 34966891 (4) Elevated liver enzymes Narrative/Plan: previously seen on prior hospitalization for elevated liver enzymes with full serologic workup including acute viral hepatitis panel testing at that time negative. Elevation likely multifactorial and secondary to sepsis, currently being treated for acute cholecystitis, cannot rule out component of medication effect. Liver enzymes initially mildly elevated on presentation having increased during his hospitalization with total bilirubin 1.8-4.3, alkaline phosphatase 292-180, AST 37 224 and ALT 33-104. Current Visit: No Status: Acute Code(s): R74.8 - ABNORMAL LEVELS OF OTHER SERUM ENZYMES SNOMED Code(s): 157616195 Plan: supportive care Continue ICU management Continue present regimen antibiotic therapy Previous serologic workup for elevated enzymes reviewed and negative on prior hospitalization including acute viral hepatitis panel multiple imaging studies have also been performed with no evidence of ductal dilation to suggest choledocholithiasis Surgical service following the patient, the for management of cholecystitis or possible endoscopes other service Thank you for allowing us to participate in the care of this patient we will continue to follow
--- NOTE | 2020-04-24 17:02 | P.PN ---
Progress Note - Text Progress Note Date: 04/24/20 Presenting complaint Chest pain: Interval course: Patient was recently in the hospital with ischemic colitis with resultant hypotension lactic acidosis ischemic hepatitis, acute CHF exacerbation was admitted to the ICU. Now presented with chest pain. Found to be atypical. Negative troponins. Ultrasound of the abdomen showed gallbladder sludge. Suspicion for acute cholecystitis. Followed by surgery. No history of carotid artery disease. Known EF of 30-35%. Also atrial fibrillation, hyperlipidemia, AICD. April 20-surgery was postponed for a sodium of 127 by anesthesia. Patient was given salt tablet fluid restriction and held of free fluid. Following day sodium went to 128. Nephrology consulted. Ordered Samsca. On April 22 patient had increasing abdominal pain. Worsening renal function. Lactic acidosis. Moved to ICU. Started IV Zosyn. IV fluids. Bicarbonate drip. Hypothermic. Today-ICU: Abdominal pain better control. Fair urine output. Blood pressure stable. No vomiting. Review of systems: Was done for constitutional, cardiovascular, GI, pulmonary. relevant finding as above Active Medications Al Hydroxide/Mg Hydroxide (Mag Hydrox/Al Hydrox/Simeth 30 Ml Cup) 30 ml PO Q4HR PRN PRN Reason: GI Upset Last Admin: 04/18/20 00:31 Dose: 30 ml Documented by: Hydromorphone HCl (Hydromorphone 1 Mg/Ml 1 Ml Syringe) 1 mg IVP Q3HR PRN PRN Reason: Pain Last Admin: 04/23/20 06:31 Dose: 1 mg Documented by: Piperacillin Sod/Tazobactam (Sod 3.375 gm/ Sodium Chloride) 100 mls @ 25 mls/hr IVPB Q8HR [facility] Last Admin: 04/24/20 10:00 Dose: 25 mls/hr Documented by: Metronidazole 500 mg/ IV (Solution) 100 mls @ 100 mls/hr IVPB Q8HR [facility] Last Admin: 04/24/20 10:00 Dose: 100 mls/hr Documented by: Lidocaine HCl (Lidocaine 1% (10mg/Ml) For Iv Start) 0.1 ml INTRADERMA PER PROTOCOL PRN PRN Reason: IV Start Metoprolol Succinate (Metoprolol Succinate (Er) 25 Mg Tab.Er.24h) 25 mg PO DAILY [facility] Last Admin: 04/24/20 09:51 Dose: Not Given Documented by: Midodrine (Midodrine 5 Mg Tab) 5 mg PO AC-TID [facility] Last Admin: 04/24/20 14:46 Dose: Not Given Documented by: Nitroglycerin (Nitroglycerin Sl Tabs 0.4 Mg Tab) 0.4 mg SUBLINGUAL Q5M PRN PRN Reason: Chest Pain Last Admin: 04/17/20 20:06 Dose: 0.4 mg Documented by: Ondansetron HCl (Ondansetron 4 Mg/2 Ml Vial) 4 mg IVP Q6HR PRN PRN Reason: Nausea And Vomiting Last Admin: 04/24/20 10:01 Dose: 4 mg Documented by: Pantoprazole Sodium (Pantoprazole 40 Mg/10 Ml Vial) 40 mg IV DAILY [facility] Last Admin: 04/24/20 10:01 Dose: 40 mg Documented by: On examination: VITAL SIGNS: 98.1, 98, 15, 121/52, 95% on 4 L GENERAL APPEARANCE: Reclining in bed, awake, uncomfortable HEENT: Normal external appearance of nose and ear. Oral cavity normal EYES: Pupils equal. Conjunctiva normal. NECK: JVD not raised. Mass not palpable. RESPIRATORY: Respiratory effort normal. Lungs clear to auscultation. CARDIOVASCULAR: Heart sounds irregular. No edema. ABDOMEN: Soft. Liver and spleen not palpable. Upper abdominal tenderness, no obvious guarding rigidity. No mass palpable. PSYCHIATRY: Alert and oriented x3. Mood and affect anxious. Investigations: April 24: White count 8.6 hemoglobin 11 platelets 138 INR 1.6 potassium 2.9 bun 40 creatinine 1.93 AST 224 ALT 104 April 23: White count 25 hemoglobin 11 increased neutrophils INR 1.9 potassium 4.2 bicarb 29 bun 50 creatinine 2.45 AST 356 ALT 128 Computed tomography scan of the abdomen-persistent but improved wall thickening involving the duodenum and proximal jejunum. April 22: White count 31.7 hemoglobin 11.7 potassium 5.7 bun 44 creatinine 2.64 bicarb 11 lactic acid 12.6 AST 544 ALT 144 Computed tomography scan abdomen and pelvis-mild to moderate acute enteritis involving the duodenum and proximal jejunum April 21: Sodium 128 bun 29 creatinine 1.58. Serum osmolality 282 White count 8.6 hemoglobin 12.7 platelets 298 sodium 127 potassium 4.7 creatinine 1.26 Coronavirus [PCR]-not detected EKG tracing-left bundle-branch block pattern Assessment: -Acute enteritis involving the duodenum and proximal jejunum. This could be a hypotensive episode/etiology. With hydration that seems to have getting better. (Discussed with Dr. Delgadillo from vascular. Not of vascular etiology] -Acute metabolic acidosis from worsening renal corrected -Acute kidney injury, ATN some improvement -Acute ischemic hepatitis-slowly improving -Acute lactic acidosis likely combination of type I-type II-improving -Hypokalemia- -Acute cholecystitis, pending surgery-patient being covered by Dr. Noble for Dr. Farah for the weekend -Hyponatremia, suspect hypervolemia from CHF. Normal osmolar. Improved -Chest pain-felt to be noncardiac -Coronary artery disease with cardiac cath in February 2020 revealing chronically occluded RCA extensive [id number] collaterals etc. -Chronic congestive heart failure from systolic dysfunction EF 25-30% -Paroxysmal atrial fibrillation chronically on eliquis -AICD for ventricular tachycardia Plan: In the ICU. Continue IV Flagyl IV Zosyn. IV fluids. Localized perforation still in the differential-at this point is less likely but cannot be ruled out. Dr. Noble is covering for Dr. Farah for the weekend. Replace potassium
[2020-04-24] MEDS ORDERED: Potassium Replacement Protocol 1 EACH MISC MISCELLANE PRN (17:31)
[2020-04-24] MEDS ORDERED: POTASSIUM CHLORIDE 20 MEQ in WATER FOR INJECTION 1 100ML.BAG IVPB ONE (23:15)
[2020-04-25 03:55] LABS: Anisocytosis Moderate; Basophils % (A) 0 %; Eosinophils % (A) 0 %; HCT 37.6 % (39.0-53.0); HGB 11.5 gm/dL (13.0-17.5); Hypochromasia Moderate; Lymphocytes # (A) 1.3 k/uL (1.0-4.8); Lymphocytes % (A) 6 %; MCH 26.2 pg (25.0-35.0); MCHC 30.6 g/dL (31.0-37.0); MCV 85.4 fL (80.0-100.0); Mean Platelet Volume 10.7; Microcytosis Slight; Monocytes % (A) 5 %; Neutrophils # (A) 18.7 k/uL (1.3-7.7); Neutrophils % (A) 87 %; Platelet Count 121 k/uL (150-450); Poikilocytosis Slight; RDW 21.9 % (11.5-15.5); WBC 21.4 k/uL (3.8-10.6)
[2020-04-25 04:12] LABS: INR 1.3 (<1.2); Prothrombin Time 13.7 sec (9.0-12.0)
[2020-04-25 04:19] LABS: Albumin 2.4 g/dL (3.5-5.0); Calcium 7.7 mg/dL (8.4-10.2); Potassium 3.6 mmol/L (3.5-5.1); Total Bilirubin 4.6 mg/dL (0.2-1.3); Total Protein 5.5 g/dL (6.3-8.2)
[2020-04-25] MEDS ORDERED: POTASSIUM CHLORIDE 20 MEQ in WATER FOR INJECTION 1 100ML.BAG IVPB ONE (04:34)
[2020-04-25] MEDS: MIDODRINE 5 MG TAB PO SCH ×3 (04:47→17:35)
[2020-04-25] MEDS ORDERED: HEPARIN SODIUM,PORCINE 5,000 UNIT/ML 1 ML VIAL IV PRN (07:52)
[2020-04-25] MEDS ORDERED: HEPARIN SODIUM,PORCINE 5,000 UNIT/ML 1 ML VIAL IV ONE (07:52)
--- NOTE | 2020-04-25 07:52 | P.PN ---
Subjective Progress Note Date: 04/25/20 This is a 70-year-old male who presented to the emergency department on April 17, at 1020 in the morning. The patient's complaints include primarily chest and abdominal pain. It began the night prior about 12 hours earlier. It's sharp constant consistent pain in the lower right chest area and right upper abdominal area. He denied any nausea, vomiting, or diarrhea. The patient was recently inpatient for pulmonary edema and ascites. The patient was evaluated and discovered to have acute cholecystitis. The patient was to have surgery but the sodium was low and so the surgery was canceled. Then, the patient was hypotensive, and hypothermic. In addition, his lactic acid had risen to above 12. For that reason, the patient was admitted to the intensive care unit for further evaluation and management. The patient's white count jumped up to 31.7, hemoglobin 11.7, hematocrit 37.5, and platelet count was normal. Sodium was 130, potassium 5.7, chloride 73, CO2 11, anion gap was 26, and BUN and creatinine were 44 and 2.64. These labs are consistent with a anion gap metabolic acidosis, secondary to renal failure and lactic acidemia. The patient's AST was 544, ALT 144, and alkaline phosphatase was 205. Bilirubin was elevated at 3.0. Chest x-ray today showed bilateral areas of atelectasis, pneumonia, edema, and effusions. CT of the abdomen and pelvis revealed evidence of moderate acute enteritis involving the duodenum and proximal jejunum, bilateral lower pleural effusions, and associated compressive atelectasis. The patient was only started on antibiotics. He was given left internal jugular triple-lumen catheter, and a left radial art line. His current antibiotic is Zosyn and flagyl. An NG tube in place. He continued to have abdominal pain. Tends to localize in the right upper quadrant. It is diffuse as well though. On today's evaluation of 04/25/2020, the patient is being seen for a follow-up. He is having mild abdominal pain which is improved compared to yesterday. No fever. White cell count is at 21.4. Hemoglobin is at 11.5. He has 87% neutrophilia. On his electrolytes, sodium level is at 146 with a serum bicarb of 31 and a creatinine of 1.4 which is improved compared to yesterday when his creatinine was at 1.9. His bilirubin is at 4.6 with an AST of 125 and ALT of 76 both liver function tests are improving and the bilirubin is essentially slightly higher compared to yesterday. His alkaline phosphatase is stable at 183. His lactic acidosis high as 12 and is down to 1.4. The patient remains on antibiotic coverage utilizing a combination of Zosyn and Flagyl. He has history of chronic atrial fibrillation current rhythm is sinus and the patient is not receiving any form of anticoagulation for now. Objective - Vital Signs Vital signs: Vital Signs Temp 97.7 F 04/25/20 04:00 Pulse 103 H 04/25/20 07:00 Resp 15 04/25/20 07:00 BP 105/62 04/22/20 16:00 Pulse Ox 94 L 04/25/20 07:00 Intake & Output 04/24/20 04/25/20 04/25/20 18:59 06:59 18:59 Intake Total 1105 730 30 Output Total 1775 459 50 Balance -670 271 -20 Weight 68.2 kg Intake: IV 1105 730 30 NACL 430 330 30 Piperacillin-Tazobactam 3 175 100 .375 gm In Sodium Chloride 0.9% 100 ml @ 25 mls/hr IVPB Q8HR [facility] Rx# :[id number] Potassium Chloride 20 meq 300 200 In Water For Injection 1 100ml.bag @ 50 mls/hr IVPB Q2H [facility] Rx#: [id number] metroNIDAZOLE-NS PMX 500 200 100 mg In Saline 1 100ml.bag @ 100 mls/hr IVPB Q8HR [facility] Rx#:[id number] Output: Gastric Drainage 1000 Urine 775 459 50 Other: Voiding Method Indwelling Catheter Indwelling Catheter ABP, PAP, CO, CI - Last Documented Arterial Blood Pressure 110/56 - Exam Moderately severe abdominal pain, oriented 3. The patient is lying supine, NG tube in place, now on nasal cannula 5 L. Head exam was generally normal. There was no scleral icterus or corneal arcus. Mucous membranes were moist. Neck was supple and without jugular venous distension, thyromegaly, or carotid bruits. Carotids were easily palpable bilaterally. There was no adenopathy. Cardiovascular examination reveals regular rhythm rate. S1-S2 normal. No S3 or S4. No discernible murmur noted. Lungs reveal bilateral rhonchi and lower lobe crackles. Breath sounds equal bilaterally. Abdomen very tender to touch, particularly in the area of the right upper quadra nt. No bowel sounds are noted. Extremities are intact. No cyanosis clubbing or edema. Skin is without rash or lesion. Neurologic examination is brief but nonfocal. - Labs CBC & Chem 7: 04/25/20 03:35 04/25/20 03:35 Labs: Abnormal Lab Results - Last 24 Hours (Table) 04/24/20 04/25/20 04/25/20 Range/Units 16:59 03:35 03:35 WBC 21.4 H (3.8-10.6) k/uL Hgb 11.5 L (13.0-17.5) gm/dL Hct 37.6 L (39.0-53.0) % MCHC 30.6 L (31.0-37.0) g/dL RDW 21.9 H (11.5-15.5) % Plt Count 121 L (150-450) k/uL Neutrophils # 18.7 H (1.3-7.7) k/uL PT (9.0-12.0) sec INR (<1.2) Sodium 146 H (137-145) mmol/L Potassium 3.2 L (3.5-5.1) mmol/L Carbon Dioxide 31 H (22-30) mmol/L BUN 30 H (9-20) mg/dL Creatinine 1.44 H (0.66-1.25) mg/dL Glucose 117 H (74-99) mg/dL Calcium 7.7 L (8.4-10.2) mg/dL Total Bilirubin 4.6 H (0.2-1.3) mg/dL AST 125 H (17-59) U/L ALT 76 H (4-49) U/L Alkaline Phosphatase 183 H (38-126) U/L Total Protein 5.5 L (6.3-8.2) g/dL Albumin 2.4 L (3.5-5.0) g/dL 04/25/20 Range/Units 03:35 WBC (3.8-10.6) k/uL Hgb (13.0-17.5) gm/dL Hct (39.0-53.0) % MCHC (31.0-37.0) g/dL RDW (11.5-15.5) % Plt Count (150-450) k/uL Neutrophils # (1.3-7.7) k/uL PT 13.7 H (9.0-12.0) sec INR 1.3 H (<1.2) Sodium (137-145) mmol/L Potassium (3.5-5.1) mmol/L Carbon Dioxide (22-30) mmol/L BUN (9-20) mg/dL Creatinine (0.66-1.25) mg/dL Glucose (74-99) mg/dL Calcium (8.4-10.2) mg/dL Total Bilirubin (0.2-1.3) mg/dL AST (17-59) U/L ALT (4-49) U/L Alkaline Phosphatase (38-126) U/L Total Protein (6.3-8.2) g/dL Albumin (3.5-5.0) g/dL Assessment and Plan Plan: 1 Sepsis, secondary to suspected acute cholecystitis/enteritis. The patient has ischemic changes involving the duodenum and jejunum in addition to biliary sludge the patient presented with abdominal pain, diffuse in addition to severe lactic acidosis. Highly suspicious that this was a mesenteric ischemia. Note that the patient was seen by vascular surgery and the patient was also seen by general surgery. The patient was resuscitated. The patient was given fluids and antibiotics and the patient's lactic acid level improved and his abdominal pain is subsided. Acute kidney injury is improving and the liver functions is also improving. He remains nothing by mouth. The patient has undergone a visceral angiogram showed mild disease of the celiac artery and no significant stenosis of the SMA, I am a and there was no clear evidence indicating PAD of the mesenteric arteries he had still, the possibility of ischemic colitis cannot be ruled out special ed his underlying severe cardiomyopathy. 2 Hypothermia, and hypotension, secondary to suspected sepsis, improved. 3 Possible small bowel ischemic/inflammatory changes. 4 acute kidney injury, improving , creatinine is down to 1.44 and the patient is on IV fluids in the form of 0.9 at 30 mL an hour 5 acute Lactic acidemia, much improved. 6 Hyponatremia, improved, post Semsca treatment, sodium level has normalized 7 History of chronic atrial fibrillation. Current rhythm is sinus and the patient is not receiving any form of anticoagulation 8 History of CAD, status post stent placement. Coronary artery disease with chronically occluded RCA and collaterals in addition to moderate to moderate d isease involving LAD and circumflex and this is based on a cardiac catheterization from the year 1999 9 History of hyperlipidemia. 10 History of essential hypertension. 11 History of myocardial infarction. 12 chronic atrial fibrillation, slightly tachycardic this morning with a wide bundle branch block pattern 13 CHF with an EF 35% 14 History of previous cardiac ablation and AICD placement. The patient has history of V. tach and the patient undergone previous ablation 15 PAD without significant mesenteric artery occlusive disease Plan: IV is running at 30 mL an hour NG tube is in place and the patient's abdomen is less tender compared to yesterday. Consider starting him on IV heparin based on his underlying chronic atrial fibrillation. Monitor the platelet counts. Keep the bowel to rest for another 24 hours and I'm going to discuss this with the general surgeon. Abdomen is less tender compared to yesterday. He is on nasal O2 at 4 L. Flagyl and Zosyn. Repeat chest x-ray today Remove the NG tube as output is minimal and consider giving the patient some clear liquid diet Microbiologic studies are currently negative or pending. Keep the patient ICU for now. We'll continue to follow I will discuss this case with the rest of the consultants including vascular surgery and general surgery and cardiology. Critically care evaluation Time with Patient: Greater than 30
[2020-04-25] MEDS: PIPERACILLIN-TAZOBACTAM 3.375 GM in SODIUM CHLORIDE 0.9% 100 ML IVPB SCH ×2 (08:47→17:34)
[2020-04-25] MEDS: HEPARIN SOD,PORK IN 0.45% NACL 25,000 UNIT in 0.45% NACL 1 250ML.BAG IV SCH (08:47)
[2020-04-25] MEDS: metroNIDAZOLE-NS PMX 500 MG in SALINE 1 100ML.BAG IVPB SCH ×2 (08:47→17:34)
[2020-04-25] MEDS: METOPROLOL SUCCINATE (ER) 25 MG TAB.ER.24H PO SCH (08:47)
[2020-04-25] MEDS: PANTOPRAZOLE 40 MG/10 ML VIAL IV SCH (08:48)
--- NOTE | 2020-04-25 08:48 | CDI ---
Documentation Clarification Form Date: 04/25/2020 07:39:44 AM From: Mallory Mock RN, CCDS Admit Date: 04/19/2020 11:28:00 AM Patient Name: Gerber Obrien Visit Number: [id number] Discharge Date: ATTENTION: The Clinical Documentation Specialists (CDI) and [facility] Coding Staff appreciate your assistance in clarifying documentation. Please respond to the clarification below the line at the bottom and electronically sign. The CDI & [facility] Coding staff will review the response and follow-up if needed. Please note: Queries are made part of the Legal Health Record. If you have any questions, please contact the author of this message via ITS. Dr. Vinicio Murillo The patient presented on 04/19 with increasing abdominal pain and distention suspicious for acute cholecystitis. On April 20-surgery was postponed for a sodium of 127. Please render your opinion on the sepsis diagnosis and possible POA indicators. 04/22 Assessment: acute enteritis with sepsis picture. History/Risk Factors: Ischemic colitis, Ischemic hepatitis, Clinical Indicators: 70-year-old male present to ED with chest pain. He was admitted on 04/19 after Ultrasound of the abdomen showed gallbladder sludge. Increasing abdominal pain. Suspicion for acute cholecystitis. 04/19 @07:28 Vital signs: 99/63 79 14 98.4 94 % RA 04/22 @ 08:00 Vital signs: 85/48 81 18 95. 94 % RA 04/19 WBC 12.56, 04/22 WBC 31.7, Lactic acid 12.6 04/22 Surgery progress note: Sepsis possible abdominal source 04/22 Nephrology progress notes: Severe abdominal pain mild to moderate acute enteritis. Acute kidney injury secondary to ATN secondary to hypotension/sepsis- ? abdominal source. 04/22 Pulmonary progress note: Sepsis, secondary to suspected acute cholecystitis/enteritis. Treatment: 04/22 ICU Telemetry monitoring NPO, NGT LIS Flagyl 500 MG IV Q 8HRS Zosyn 3.375 GM IVPB Q 8 HRS .9NS 1,000 IV bolus (04/22) Sodium Bicarbonate 8.4 % in 50 ML IV ONCE Monitor Labs: CBC, BUN, CR Lytes, lactic acid, LFTs, bilirubin In your professional opinion, please clarify if these findings signify one of the following conditions, whether the condition is POA, and cause, if known: Condition Sepsis ruled in present on admission Severe Sepsis with septic shock not present on admission Other, please specify Unable to determine Identify the (suspected) organism Link or clarify if there is associated (due to/with): Organ failure Shock SIRS Criteria (2 or more of the following may indicate SIRS): -Temperature < 96.8F (36C) or > 101.0F (38.3C) -Heart Rate > 90 bpm -Respiratory Rate > 20 breaths/min or PaCO2 < 32 mmHg -White Blood Cell Count > 12,000 or < 4,000 cells/mm3 or > 10% bands -Lactate >2.0 mmol/L (>4.0 is equivalent to septic shock) (Last Revision: June 2017) Possible sepsis, POA MTDD
--- NOTE | 2020-04-25 10:56 | PN ---
PROGRESS NOTE Gerber is a 70-year-old gentleman, well known to me from my outpatient practice with history of cardiomyopathy, AICD, coronary artery disease. He is admitted to hospital with abdominal pain and is currently being considered for cholecystectomy. His labs show that the white cell count is elevated at 21, hemoglobin is 11.5. Potassium is 3.6. Creatinine is 1.4. PHYSICAL EXAMINATION: On exam, heart rate is 103 beats per minute. Blood pressure is 110/56. Respiratory rate is 18. Chest exam reveals diminished air entry at the bases. Heart exam reveals first and second heart sounds, irregular rhythm. Abdomen appears mildly tender. Examination of extremities reveal trace edema. Peripheral pulses are felt. ASSESSMENT: 1. Coronary artery disease. 2. Ischemic cardiomyopathy. 3. History of ventricular tachycardia. 4. Abdominal pain probably with multiple etiological considerations including bowel ischemia, cholecystitis. PLAN: Patient will continue current medical therapy. The patient had a cardiac catheterization in February that showed a chronically occluded right coronary artery with extensive [id number] collaterals with mild to moderate disease involving LAD and circumflex coronary artery. The patient had an echo that showed an ejection fraction of 35% to 40% with severe mitral regurgitation with repeat 2D echo done showed moderate mitral regurgitation. Patient had a who I was told did not show significant disease, but I do not see a report in the system. Will continue current medical therapy. Start the patient on heparin because of history of atrial fibrillation. MMODL / IJN: [id number] /
--- NOTE | 2020-04-25 11:11 | P.PN ---
Subjective Progress Note Date: 04/25/20 CHIEF COMPLAINT: Chest pain HISTORY OF PRESENT ILLNESS: Patient is being followed in regards to his abdom inal pain and symptomatic cholelithiasis. Patient remains in the ICU and sitting up in bed. NG tube has been removed this morning and patient started on a clear liquid diet. Patient denies any abdominal pain. He does report some discomfort in the right upper quadrant. Denies any nausea or vomiting. Afebrile. WBC 21.4 sodium 146 And 1.44 total bili 4.6 AST 125 ALT 76 alk phos 183 PHYSICAL EXAM: VITAL SIGNS: Reviewed. GENERAL: Well-developed in no acute distress. HEENT: No sclera icterus. Extraocular movements grossly intact. Moist buccal mucosa. Head is atraumatic, normocephalic. ABDOMEN: Soft. Nondistended. mild discomfort with palpation of the right upper quadrant NEUROLOGIC: Alert and oriented. Cranial nerves II through XII grossly intact. ASSESSMENT: 1. Sepsis possibly due to cholecystitis and enteritis 2. Symptomatic cholelithiasis 3. Enteritis possibly ischemic in nature. Now improving 4. Hyponatremia resolved 5. Acute kidney injury improving PLAN: -Patient scheduled for laparoscopic cholecystectomy tomorrow, 04/26/[address] Farah -Keep patient nothing by mouth after midnight -Continue ICU management and supportive care -Continue antibiotics -Patient is currently anticoagulated with IV heparin for his A. fib Physician Labourers note has been reviewed by physician. Signing provider agrees with the documented findings, assessment, and plan of care. Objective - Vital Signs Vital signs: Vital Signs Temp 98.1 F 04/25/20 08:00 Pulse 99 04/25/20 10:00 Resp 17 04/25/20 10:00 BP 105/62 04/22/20 16:00 Pulse Ox 93 L 04/25/20 10:00 Intake & Output 04/24/20 04/25/20 04/25/20 18:59 06:59 18:59 Intake Total 1105 730 320 Output Total 1775 459 210 Balance -670 271 110 Weight 68.2 kg Intake: IV 1105 730 320 NACL 430 330 120 Piperacillin-Tazobactam 3 175 100 100 .375 gm In Sodium Chloride 0.9% 100 ml @ 25 mls/hr IVPB Q8HR [facility] Rx# :[id number] Potassium Chloride 20 meq 300 200 In Water For Injection 1 100ml.bag @ 50 mls/hr IVPB Q2H [facility] Rx#: [id number] metroNIDAZOLE-NS PMX 500 200 100 100 mg In Saline 1 100ml.bag @ 100 mls/hr IVPB Q8HR [facility] Rx#:[id number] Output: Gastric Drainage 1000 Urine 775 459 210 Other: Voiding Method Indwelling Catheter Indwelling Catheter Indwelling Catheter ABP, PAP, CO, CI - Last Documented Arterial Blood Pressure 114/66 - Labs CBC & Chem 7: 04/25/20 03:35 04/25/20 10:52 Labs: Abnormal Lab Results - Last 24 Hours (Table) 04/24/20 04/25/20 04/25/20 Range/Units 16:59 03:35 03:35 WBC 21.4 H (3.8-10.6) k/uL Hgb 11.5 L (13.0-17.5) gm/dL Hct 37.6 L (39.0-53.0) % MCHC 30.6 L (31.0-37.0) g/dL RDW 21.9 H (11.5-15.5) % Plt Count 121 L (150-450) k/uL Neutrophils # 18.7 H (1.3-7.7) k/uL PT (9.0-12.0) sec INR (<1.2) Sodium 146 H (137-145) mmol/L Potassium 3.2 L (3.5-5.1) mmol/L Carbon Dioxide 31 H (22-30) mmol/L BUN 30 H (9-20) mg/dL Creatinine 1.44 H (0.66-1.25) mg/dL Glucose 117 H (74-99) mg/dL Calcium 7.7 L (8.4-10.2) mg/dL Total Bilirubin 4.6 H (0.2-1.3) mg/dL AST 125 H (17-59) U/L ALT 76 H (4-49) U/L Alkaline Phosphatase 183 H (38-126) U/L Total Protein 5.5 L (6.3-8.2) g/dL Albumin 2.4 L (3.5-5.0) g/dL 04/25/20 Range/Units 03:35 WBC (3.8-10.6) k/uL Hgb (13.0-17.5) gm/dL Hct (39.0-53.0) % MCHC (31.0-37.0) g/dL RDW (11.5-15.5) % Plt Count (150-450) k/uL Neutrophils # (1.3-7.7) k/uL PT 13.7 H (9.0-12.0) sec INR 1.3 H (<1.2) Sodium (137-145) mmol/L Potassium (3.5-5.1) mmol/L Carbon Dioxide (22-30) mmol/L BUN (9-20) mg/dL Creatinine (0.66-1.25) mg/dL Glucose (74-99) mg/dL Calcium (8.4-10.2) mg/dL Total Bilirubin (0.2-1.3) mg/dL AST (17-59) U/L ALT (4-49) U/L Alkaline Phosphatase (38-126) U/L Total Protein (6.3-8.2) g/dL Albumin (3.5-5.0) g/dL
[2020-04-25 11:12] LABS: INR 1.5 (<1.2); Prothrombin Time 15.1 sec (9.0-12.0)
[2020-04-25 11:23] LABS: Partial Thromboplastin Time 160.6 sec (22.0-30.0)
--- NOTE | 2020-04-25 12:50 | P.CONS ---
History of Present Illness - Reason for Consult Consult date: 04/24/20 Leukocytosis/enteritis Requesting physician: Jill Castle - Chief Complaint chest/abd pain x few days - History of Present Illness Patient is a 78-year-old male presenting to the ER at [facility] on April 17, 2019 with a chief complaint of chest pain that started the night before he presented to the hospital patient's pain was mostly in the lower sternum/upper abdominal, it was difficult for him to sleep was complaining of shortness of breath associated with it patient on presentation to the hospital was afebrile and no fever has been reported during his evaluation patient did have a normal white count subsequently jumping up to 31.7 patient did have a chest x-ray with evidence of progression pleural effusion correlate to exclude pneumonia patient did have a ultrasound of the gallbladder sludge suspected in the gallbladder possible cholecystitis, patient subsequently admits to be hypotensive hypothermic and worsening white count as well as elevated lactic acid, the patient did have a CT abdominal pelvis which did shows moderate enteritis of the duodenum and jejunal area, infectious disease was consulted for further management Review of Systems Positive point has been mentioned in the HPI rest of the systems are negative Past Medical History Past Medical History: Atrial Fibrillation, Coronary Artery Disease (CAD), Hyperlipidemia, Hypertension, Myocardial Infarction ([place]), Pneumonia Additional Past Medical History / Comment(s): X3 [place]'S, ULCER YEARS AGO, bradycardia Last Myocardial Infarction Date:: 2004 History of Any Multi-Drug Resistant Organisms: None Reported Past Surgical History: AICD, Cardiac Ablation, Heart Catheterization With Stent, Orthopedic Surgery, Pacemaker Additional Past Surgical History / Comment(s): CARDIOVERSION, HEART STENTS X7, cardiac ablation x 2 in the past and again om 12-05-15, rt wrist surgery after injury Past Anesthesia/Blood Transfusion Reactions: No Reported Reaction Additional Past Anesthesia/Blood Transfusion Reaction / Comm: NEVER HAS HAD GENERAL ANESTHESIA Date of Last Stent Placement:: 2004 Type of Cardiac Device: AICD Device Placement Date:: 2015 Past Psychological History: No Psychological Hx Reported Smoking Status: Former smoker Past Alcohol Use History: None Reported Past Drug Use History: None Reported - Past Family History Father Additional Family Medical History / Comment(s): DAD HAD PACER BUT NO OTHER HX KNOWN Mother Family Medical History: No Reported History Additional Family Medical History / Comment(s): pt stated does'nt know medical hx on parents. Medications and Allergies Home Medications Medication Instructions Recorded Confirmed Type Metoprolol Succinate (ER) [Toprol 25 mg PO DAILY 03/11/20 04/17/20 History XL] Apixaban [Eliquis] 5 mg PO BID #60 tab 04/05/20 04/17/20 Rx Furosemide [Lasix] 40 mg PO Q48H #30 tab 04/12/20 04/17/20 Rx Midodrine [ProAmatine] 5 mg PO AC-TID #90 tab 04/12/20 04/17/20 Rx Omeprazole [PriLOSEC] 40 mg PO BID #60 cap 04/12/20 04/17/20 Rx Allergies Allergy/AdvReac Type Severity Reaction Status Date / Time No Known Allergies Allergy Verified 04/17/20 11:24 Physical Exam Vitals: Vital Signs Temp Pulse Resp Pulse Ox 04/24/20 15:13 97 04/24/20 14:00 98 21 92 L 04/24/20 13:00 98 35 H 96 04/24/20 12:00 98.1 F 98 15 95 04/24/20 11:00 99 12 94 L 04/24/20 10:00 106 H 25 H 93 L 04/24/20 09:00 97.9 F 98 31 H 94 L 04/24/20 08:00 97.7 F 96 19 97 04/24/20 07:00 98 18 95 04/24/20 06:00 98 14 95 04/24/20 05:00 97 14 93 L 04/24/20 04:00 95 12 94 L 04/24/20 03:00 96 11 L 93 L 04/24/20 02:00 94 12 93 L 04/24/20 01:00 89 15 93 L 04/24/20 00:00 97.3 F L 90 21 92 L 04/23/20 23:00 92 20 94 L 04/23/20 22:00 86 18 93 L 04/23/20 21:00 91 18 93 L 04/23/20 20:00 97.3 F L 90 18 94 L 04/23/20 19:00 92 16 94 L 04/23/20 18:00 86 10 L 94 L Intake and Output 04/24/20 04/24/20 04/24/20 06:59 14:59 22:59 Intake Total 475 700 Output Total 1250 1275 Balance -324 -888 Intake: IV 475 700 NACL 350 300 Piperacillin-Tazobactam 3 25 100 .375 gm In Sodium Chloride 0.9% 100 ml @ 25 mls/hr IVPB Q8HR [facility] Rx# :[id number] Potassium Chloride 20 meq 200 In Water For Injection 1 100ml.bag @ 50 mls/hr IVPB Q2H [facility] Rx#: [id number] metroNIDAZOLE-NS PMX 500 100 100 mg In Saline 1 100ml.bag @ 100 mls/hr IVPB Q8HR [facility] Rx#:[id number] Output: Gastric Drainage 1000 Urine 1250 275 Other: Voiding Method Indwelling Catheter Indwelling Catheter Indwelling Catheter Weight 69.7 kg ABP, PAP, CO, CI - Last 8 Hours Arterial Blood Pressure 109/55 Arterial Blood Pressure 128/58 Arterial Blood Pressure 121/52 Arterial Blood Pressure 123/55 Arterial Blood Pressure 121/61 GENERAL DESCRIPTION: Elderly male up in bed, no distress. No tachypnea or accessory muscle of respiration use. HEENT: Shows Pallor , no scleral icterus. Oral mucous membrane is dry. No pharyngeal erythema or thrush NECK: Trachea central, no thyromegaly. LUNGS: Unlabored breathing. Decreased breath sounds at the base. No wheeze or crackle. HEART: S1, S2, regular rate and rhythm. No loud murmur ABDOMEN: Soft, no tenderness , guarding or rigidity, no organomegaly EXTREMITIES: No edema of feet. SKIN: No rash, no masses palpable. NEUROLOGICAL: The patient is awake, alert, oriented x3, mood and affect normal. Results CBC & Chem 7: 04/25/20 03:35 04/25/20 10:52 Labs: Abnormal Lab Results - Last 24 Hours (Table) 04/24/20 04/24/20 04/24/20 Range/Units 04:45 04:45 04:45 WBC 18.6 H (3.8-10.6) k/uL RBC 4.08 L (4.30-5.90) m/uL Hgb 11.0 L (13.0-17.5) gm/dL Hct 34.3 L (39.0-53.0) % RDW 21.6 H (11.5-15.5) % Plt Count 138 L (150-450) k/uL Neutrophils # 16.8 H (1.3-7.7) k/uL Lymphocytes # 0.7 L (1.0-4.8) k/uL PT 16.0 H (9.0-12.0) sec INR 1.6 H (<1.2) Potassium 2.9 L (3.5-5.1) mmol/L Carbon Dioxide 33 H (22-30) mmol/L BUN 40 H (9-20) mg/dL Creatinine 1.93 H (0.66-1.25) mg/dL Glucose 132 H (74-99) mg/dL Calcium 6.9 L (8.4-10.2) mg/dL Total Bilirubin 4.3 H (0.2-1.3) mg/dL AST 224 H (17-59) U/L ALT 104 H (4-49) U/L Alkaline Phosphatase 188 H (38-126) U/L Total Protein 5.6 L (6.3-8.2) g/dL Albumin 2.5 L (3.5-5.0) g/dL 04/24/20 Range/Units 16:59 WBC (3.8-10.6) k/uL RBC (4.30-5.90) m/uL Hgb (13.0-17.5) gm/dL Hct (39.0-53.0) % RDW (11.5-15.5) % Plt Count (150-450) k/uL Neutrophils # (1.3-7.7) k/uL Lymphocytes # (1.0-4.8) k/uL PT (9.0-12.0) sec INR (<1.2) Potassium 3.2 L (3.5-5.1) mmol/L Carbon Dioxide (22-30) mmol/L BUN (9-20) mg/dL Creatinine (0.66-1.25) mg/dL Glucose (74-99) mg/dL Calcium (8.4-10.2) mg/dL Total Bilirubin (0.2-1.3) mg/dL AST (17-59) U/L ALT (4-49) U/L Alkaline Phosphatase (38-126) U/L Total Protein (6.3-8.2) g/dL Albumin (3.5-5.0) g/dL Assessment and Plan Assessment: 1-patient presented to the hospital with sepsis in this patient who did have chest and abdominal pain did have elevated white count and elevated lactic acid abnormal ultrasound was suggestive of sludge in the gallbladder and a question of cholecystitis CT abdominal pelvis suspicious thickening involving didn't and medication with nonspecific enteritis, small bowel is not a common source of ischemic bowel but not entirely excluded in this patient who did have a risk factors for atherosclerotic disease, will need to cover for the enteric gram- negative both aerobic and anaerobes (1) Enteritis Current Visit: Yes Status: Acute Code(s): K52.9 - NONINFECTIVE GASTROENTERITIS AND COLITIS, UNSPECIFIED SNOMED Code(s): 08489650 (2) Cholecystitis Current Visit: Yes Status: Acute Code(s): K81.9 - CHOLECYSTITIS, UNSPECIFIED SNOMED Code(s): 00862349 (3) Sepsis Current Visit: Yes Status: Acute Code(s): A41.9 - SEPSIS, UNSPECIFIED ORGANISM SNOMED Code(s): 69465594 Plan: 1-patient to continue with Zosyn 3.375 g every 8 hours 2-IV fluid 3-stool studies We will follow on clinical condition and cultures to further adjust medication if needed Thank you for this consultation will follow this patient with you
[2020-04-25] MEDS ORDERED: POTASSIUM CHLORIDE ER 20 MEQ TAB.ER PO SCH (15:00)
--- NOTE | 2020-04-25 15:01 | P.PN ---
Subjective Progress Note Date: 04/25/20 Principal diagnosis: Abdominal pain, elevated LFTs Patient seen and examined in the ICU. He is without any acute changes through the night. He denies any abdominal pain, nausea, or vomiting. States he has not had a bowel movement in 2-3 days, however has been nothing by mouth. Will be starting clear liquids today. Patient scheduled for cholecystectomy tomorrow Objective - Vital Signs Vital signs: Vital Signs Temp 97.7 F 04/25/20 04:00 Pulse 103 H 04/25/20 07:00 Resp 15 04/25/20 07:00 BP 105/62 04/22/20 16:00 Pulse Ox 94 L 04/25/20 07:00 Intake & Output 04/24/20 04/25/20 04/25/20 18:59 06:59 18:59 Intake Total 1105 730 30 Output Total 1775 459 50 Balance -670 271 -20 Weight 68.2 kg Intake: IV 1105 730 30 NACL 430 330 30 Piperacillin-Tazobactam 3 175 100 .375 gm In Sodium Chloride 0.9% 100 ml @ 25 mls/hr IVPB Q8HR [facility] Rx# :[id number] Potassium Chloride 20 meq 300 200 In Water For Injection 1 100ml.bag @ 50 mls/hr IVPB Q2H [facility] Rx#: [id number] metroNIDAZOLE-NS PMX 500 200 100 mg In Saline 1 100ml.bag @ 100 mls/hr IVPB Q8HR [facility] Rx#:[id number] Output: Gastric Drainage 1000 Urine 775 459 50 Other: Voiding Method Indwelling Catheter Indwelling Catheter ABP, PAP, CO, CI - Last Documented Arterial Blood Pressure 110/56 - Exam General appearance: The patient is alert, oriented, in no acute distress. HET: Head is normocephalic and atraumatic. Conjunctiva pink. Sclera anicteric. Neck: Supple without lymphadenopathy. Abdomen: Soft, nontender, nondistended with bowel sounds. No guarding or rigidity. Extremities: Normal skin color and turgor. No pedal edema Skin: Mildly jaundice Neurological: No focal deficits. Alert and oriented 3. - Labs CBC & Chem 7: 04/25/20 03:35 04/25/20 10:52 Labs: Abnormal Lab Results - Last 24 Hours (Table) 04/24/20 04/25/20 04/25/20 Range/Units 16:59 03:35 03:35 WBC 21.4 H (3.8-10.6) k/uL Hgb 11.5 L (13.0-17.5) gm/dL Hct 37.6 L (39.0-53.0) % MCHC 30.6 L (31.0-37.0) g/dL RDW 21.9 H (11.5-15.5) % Plt Count 121 L (150-450) k/uL Neutrophils # 18.7 H (1.3-7.7) k/uL PT (9.0-12.0) sec INR (<1.2) Sodium 146 H (137-145) mmol/L Potassium 3.2 L (3.5-5.1) mmol/L Carbon Dioxide 31 H (22-30) mmol/L BUN 30 H (9-20) mg/dL Creatinine 1.44 H (0.66-1.25) mg/dL Glucose 117 H (74-99) mg/dL Calcium 7.7 L (8.4-10.2) mg/dL Total Bilirubin 4.6 H (0.2-1.3) mg/dL AST 125 H (17-59) U/L ALT 76 H (4-49) U/L Alkaline Phosphatase 183 H (38-126) U/L Total Protein 5.5 L (6.3-8.2) g/dL Albumin 2.4 L (3.5-5.0) g/dL 04/25/20 Range/Units 03:35 WBC (3.8-10.6) k/uL Hgb (13.0-17.5) gm/dL Hct (39.0-53.0) % MCHC (31.0-37.0) g/dL RDW (11.5-15.5) % Plt Count (150-450) k/uL Neutrophils # (1.3-7.7) k/uL PT 13.7 H (9.0-12.0) sec INR 1.3 H (<1.2) Sodium (137-145) mmol/L Potassium (3.5-5.1) mmol/L Carbon Dioxide (22-30) mmol/L BUN (9-20) mg/dL Creatinine (0.66-1.25) mg/dL Glucose (74-99) mg/dL Calcium (8.4-10.2) mg/dL Total Bilirubin (0.2-1.3) mg/dL AST (17-59) U/L ALT (4-49) U/L Alkaline Phosphatase (38-126) U/L Total Protein (6.3-8.2) g/dL Albumin (3.5-5.0) g/dL Assessment and Plan (1) Cholecystitis Narrative/Plan: 70-year-old male with multiple medical comorbidities presenting with chest and abdominal pain. Patient has been receiving treatment in the intensive care unit for possible septicemia related to suspected cholecystitis. Enteritis also noted on prior imaging with computed tomography scan of the abdomen yesterday showing bibasilar atelectasis, improving enteritis of the duodenum and jejunum and recommendation to correlate for cystitis. Patient previously seen on prior hospitalization for elevated liver enzymes. Currently on broad-spectrum antibiotic therapy. He is reporting improvement in his abdominal pain and the surgical service is following. Current Visit: Yes Status: Acute Code(s): K81.9 - CHOLECYSTITIS, UNSPECIFIED SNOMED Code(s): 96616980 (2) Sludge in gallbladder Current Visit: Yes Status: Acute Code(s): K82.8 - OTHER SPECIFIED DISEASES OF GALLBLADDER SNOMED Code(s): 60319324 (3) Abdominal pain Current Visit: No Status: Acute Code(s): R10.9 - UNSPECIFIED ABDOMINAL PAIN SNOMED Code(s): 91130541 (4) Elevated liver enzymes Narrative/Plan: should had previously been seen on a prior hospitalization for elevated liver enzymes with full serologic workup including acute viral hepatitis panel testing which was negative. Elevation likely multifactorial and secondary to sepsis, currently being treated for acute cholecystitis, cannot rule out component of medication effect. Liver enzymes initially mildly elevated on presentation having increased during his hospitalization with total bilirubin 1.84.3, alkaline phosphatase 372483, AST 372 24 and ALT 74543. Continues to have increase in liver enzymes Current Visit: No Status: Acute Code(s): R74.8 - ABNORMAL LEVELS OF OTHER SERUM ENZYMES SNOMED Code(s): 579416341 Plan: supportive care Continue ICU management Continue present regimen antibiotic therapy Previous serologic workup for elevated enzymes reviewed and negative on prior hospitalization including acute viral hepatitis panel multiple imaging studies have also been performed with no evidence of ductal dilation to suggest choledocholithiasis Surgical service following the patient, for the management of cholecystitis or possible endoscopes Dulcolax suppository ordered for constipation Thank you for allowing us to participate in the care of this patient we will continue to follow Dr. Haque I agree with the dictator's note, documented as a scribe by Yvrose Duke.
--- NOTE | 2020-04-25 15:06 | P.PN ---
Subjective Progress Note Date: 04/25/20 Principal diagnosis: Abdomainal pain Patient seen and examined lying in bed in the ICU. He states he has no abdominal pain, nausea, or vomiting. Has not had a bowel movement in 2-3 days, however he has been nothing by mouth. Will be starting clear liquids today. Plan is for cholecystectomy with Dr. Farah tomorrow. Objective - Vital Signs Vital signs: Vital Signs Temp 97.7 F 04/25/20 04:00 Pulse 103 H 04/25/20 07:00 Resp 15 04/25/20 07:00 BP 105/62 04/22/20 16:00 Pulse Ox 94 L 04/25/20 07:00 Intake & Output 04/24/20 04/25/20 04/25/20 18:59 06:59 18:59 Intake Total 1105 730 30 Output Total 1775 459 50 Balance -670 271 -20 Weight 68.2 kg Intake: IV 1105 730 30 NACL 430 330 30 Piperacillin-Tazobactam 3 175 100 .375 gm In Sodium Chloride 0.9% 100 ml @ 25 mls/hr IVPB Q8HR [facility] Rx# :[id number] Potassium Chloride 20 meq 300 200 In Water For Injection 1 100ml.bag @ 50 mls/hr IVPB Q2H [facility] Rx#: [id number] metroNIDAZOLE-NS PMX 500 200 100 mg In Saline 1 100ml.bag @ 100 mls/hr IVPB Q8HR [facility] Rx#:[id number] Output: Gastric Drainage 1000 Urine 775 459 50 Other: Voiding Method Indwelling Catheter Indwelling Catheter ABP, PAP, CO, CI - Last Documented Arterial Blood Pressure 110/56 - Exam General appearance: The patient is alert, oriented, in no acute distress. HET: Head is normocephalic and atraumatic. Conjunctiva pink. Sclera anicteric. Neck: Supple without lymphadenopathy. Abdomen: Soft, nontender, nondistended with bowel sounds. No guarding or rigidity. Extremities: Normal skin color and turgor. No pedal edema Skin: Mildly jaundice Neurological: No focal deficits. Alert and oriented 3. - Labs CBC & Chem 7: 04/25/20 03:35 04/25/20 10:52 Labs: Abnormal Lab Results - Last 24 Hours (Table) 04/24/20 04/25/20 04/25/20 Range/Units 16:59 03:35 03:35 WBC 21.4 H (3.8-10.6) k/uL Hgb 11.5 L (13.0-17.5) gm/dL Hct 37.6 L (39.0-53.0) % MCHC 30.6 L (31.0-37.0) g/dL RDW 21.9 H (11.5-15.5) % Plt Count 121 L (150-450) k/uL Neutrophils # 18.7 H (1.3-7.7) k/uL PT (9.0-12.0) sec INR (<1.2) Sodium 146 H (137-145) mmol/L Potassium 3.2 L (3.5-5.1) mmol/L Carbon Dioxide 31 H (22-30) mmol/L BUN 30 H (9-20) mg/dL Creatinine 1.44 H (0.66-1.25) mg/dL Glucose 117 H (74-99) mg/dL Calcium 7.7 L (8.4-10.2) mg/dL Total Bilirubin 4.6 H (0.2-1.3) mg/dL AST 125 H (17-59) U/L ALT 76 H (4-49) U/L Alkaline Phosphatase 183 H (38-126) U/L Total Protein 5.5 L (6.3-8.2) g/dL Albumin 2.4 L (3.5-5.0) g/dL 04/25/20 Range/Units 03:35 WBC (3.8-10.6) k/uL Hgb (13.0-17.5) gm/dL Hct (39.0-53.0) % MCHC (31.0-37.0) g/dL RDW (11.5-15.5) % Plt Count (150-450) k/uL Neutrophils # (1.3-7.7) k/uL PT 13.7 H (9.0-12.0) sec INR 1.3 H (<1.2) Sodium (137-145) mmol/L Potassium (3.5-5.1) mmol/L Carbon Dioxide (22-30) mmol/L BUN (9-20) mg/dL Creatinine (0.66-1.25) mg/dL Glucose (74-99) mg/dL Calcium (8.4-10.2) mg/dL Total Bilirubin (0.2-1.3) mg/dL AST (17-59) U/L ALT (4-49) U/L Alkaline Phosphatase (38-126) U/L Total Protein (6.3-8.2) g/dL Albumin (3.5-5.0) g/dL Assessment and Plan Assessment: 1. Abdominal pain 2. Sepsis secondary to acute enteritis 3. Acute kidney injury 4. Global hypoperfusion 5. Peripheral arterial disease without significant mesenteric artery occlusive disease Plan: Continue supportive care Continue medical management Patient is scheduled for cholecystectomy tomorrow Thank you for this consultation, we will continue to follow with you The above dictated assessment and findings were discussed with Dr. Chiu. The impression and plan of care have been directed as dictated.
--- NOTE | 2020-04-25 16:14 | PN ---
PROGRESS NOTE Patient is seen for followup for acute kidney injury. He is currently awake, comfortable. Renal function has improved fairly stable. The patient has had good urine output. His creatinine is down to 1.4 today. The patient is currently not on any IV fluids or diuretics. His blood pressure is on the lower side. PHYSICAL EXAMINATION: On examination today, blood pressure this morning was 96/54, heart rate 100 per minute. He is afebrile. EXAMINATION OF THE HEART: S1, S2. EXAMINATION OF THE LUNGS: Decreased breath sounds at the bases. Abdomen is soft, nontender. Examination of lower extremities shows edema 1+ bilaterally. [employer] exam is grossly intact. LABS: Labs show sodium 146, potassium 3.8, chloride 107, CO2 is 31. BUN 30, creatinine 1.4. ASSESSMENT: 1. Acute kidney injury, currently improved, acute tubular necrosis, nonoliguric. 2. Hypokalemia, status post replacement. 3. Sepsis secondary to cholecystitis/enteritis associated with lactic acidosis on initial admission, status post fluid resuscitation and maintained on antibiotics. 4. Hyponatremia on initial admission, resolved; status post couple of doses of Samsca. 5. Congestive heart failure, systolic acute on top of chronic. 6. Cardiomyopathy, ejection fraction 35%. 7. Chronic atrial fibrillation with controlled ventricular response. 8. Coronary artery disease, status post coronary artery stent placement. PLAN: Monitor sodium. Continue off of diuretics. Encourage increased fluid intake, particularly water. May continue with the midodrine for now. Repeat labs in a.m. Replace potassium. MMODL / IJN: [id number] /
--- NOTE | 2020-04-25 20:26 | P.PN ---
Progress Note - Text Progress Note Date: 04/25/20 Presenting complaint Chest pain: Interval course: Patient was recently in the hospital with ischemic colitis with resultant hypotension lactic acidosis ischemic hepatitis, acute CHF exacerbation was admitted to the ICU. Now presented with chest pain. Found to be atypical. Negative troponins. Ultrasound of the abdomen showed gallbladder sludge. Suspicion for acute cholecystitis. Followed by surgery. No history of carotid artery disease. Known EF of 30-35%. Also atrial fibrillation, hyperlipidemia, AICD. April 20-surgery was postponed for a sodium of 127 by anesthesia. Patient was given salt tablet fluid restriction and held of free fluid. Following day sodium went to 128. Nephrology consulted. Ordered Samsca. On April 22 patient had increasing abdominal pain. Worsening renal function. Lactic acidosis. Moved to ICU. Started IV Zosyn. IV fluids. Bicarbonate drip. Hypothermic. Today-ICU: No abdominal pain. Laying in bed. Comfortable. Getting IV fluids. No nausea vomiting. Review of systems: Was done for constitutional, cardiovascular, GI, pulmonary. relevant finding as above Active Medications Al Hydroxide/Mg Hydroxide (Mag Hydrox/Al Hydrox/Simeth 30 Ml Cup) 30 ml PO Q4HR PRN PRN Reason: GI Upset Last Admin: 04/18/20 00:31 Dose: 30 ml Documented by: Bisacodyl (Bisacodyl 10 Mg Supp) 10 mg RECTAL HS [facility] Heparin Sodium (Porcine) (Heparin Sodium,Porcine 5,000 Unit/Ml 1 Ml Vial) 0 unit IV PER PROTOCOL PRN; Protocol PRN Reason: Low PTT Hydromorphone HCl (Hydromorphone 1 Mg/Ml 1 Ml Syringe) 1 mg IVP Q3HR PRN PRN Reason: Pain Last Admin: 04/23/20 06:31 Dose: 1 mg Documented by: Piperacillin Sod/Tazobactam (Sod 3.375 gm/ Sodium Chloride) 100 mls @ 25 mls/hr IVPB Q8HR [facility] Last Admin: 04/25/20 17:34 Dose: 25 mls/hr Documented by: Metronidazole 500 mg/ IV (Solution) 100 mls @ 100 mls/hr IVPB Q8HR [facility] Last Admin: 04/25/20 17:34 Dose: 100 mls/hr Documented by: Heparin Sodium/Sodium Chloride (25,000 unit/ Sodium Chloride) 250 mls @ 8.184 mls/hr IV .Q24H [facility]; Protocol Last Titration: 04/25/20 15:31 Dose: 9 units/kg/hr, 6.138 mls/hr Documented by: Lidocaine HCl (Lidocaine 1% (10mg/Ml) For Iv Start) 0.1 ml INTRADERMA PER PROTOCOL PRN PRN Reason: IV Start Metoprolol Succinate (Metoprolol Succinate (Er) 25 Mg Tab.Er.24h) 25 mg PO DAILY [facility] Last Admin: 04/25/20 08:47 Dose: 25 mg Documented by: Midodrine (Midodrine 5 Mg Tab) 5 mg PO AC-TID [facility] Last Admin: 04/25/20 17:35 Dose: 5 mg Documented by: Miscellaneous Information (Potassium Replacement Protocol 1 Each Misc) 1 each MISCELLANE DAILY PRN; Protocol PRN Reason: Per Protocol Nitroglycerin (Nitroglycerin Sl Tabs 0.4 Mg Tab) 0.4 mg SUBLINGUAL Q5M PRN PRN Reason: Chest Pain Last Admin: 04/17/20 20:06 Dose: 0.4 mg Documented by: Ondansetron HCl (Ondansetron 4 Mg/2 Ml Vial) 4 mg IVP Q6HR PRN PRN Reason: Nausea And Vomiting Last Admin: 04/24/20 10:01 Dose: 4 mg Documented by: Pantoprazole Sodium (Pantoprazole 40 Mg/10 Ml Vial) 40 mg IV DAILY [facility] Last Admin: 04/25/20 08:48 Dose: 40 mg Documented by: On examination: VITAL SIGNS: 97.5, 110, 18, 97/47, 91% on nasal cannula GENERAL APPEARANCE: Reclining in bed, awake, tired HEENT: Normal external appearance of nose and ear. Oral cavity normal EYES: Pupils equal. Conjunctiva normal. NECK: JVD not raised. Mass not palpable. RESPIRATORY: Respiratory effort normal. Lungs clear to auscultation. CARDIOVASCULAR: Heart sounds irregular. No edema. ABDOMEN: Soft. Liver and spleen not palpable. No abdominal tenderness, no obvious guarding rigidity. No mass palpable. PSYCHIATRY: Alert and oriented x3. Mood and affect anxious. Investigations: April 25: White count 21.4 hemoglobin 11.5 platelets 121 potassium 3.6 bun 30 creatinine 1.44 AST 125 ALT 76 April 24: White count 8.6 hemoglobin 11 platelets 138 INR 1.6 potassium 2.9 bun 40 creatinine 1.93 AST 224 ALT 104 April 23: White count 25 hemoglobin 11 increased neutrophils INR 1.9 potassium 4.2 bicarb 29 bun 50 creatinine 2.45 AST 356 ALT 128 Computed tomography scan of the abdomen-persistent but improved wall thickening involving the duodenum and proximal jejunum. April 22: White count 31.7 hemoglobin 11.7 potassium 5.7 bun 44 creatinine 2.64 bicarb 11 lactic acid 12.6 AST 544 ALT 144 Computed tomography scan abdomen and pelvis-mild to moderate acute enteritis involving the duodenum and proximal jejunum April 21: Sodium 128 bun 29 creatinine 1.58. Serum osmolality 282 White count 8.6 hemoglobin 12.7 platelets 298 sodium 127 potassium 4.7 creatinine 1.26 Coronavirus [PCR]-not detected EKG tracing-left bundle-branch block pattern Assessment: -Acute enteritis involving the duodenum and proximal jejunum. Probably hypotensive episode/etiology. With hydration that seems to have improved. -Acute metabolic acidosis from worsening renal corrected -Acute kidney injury, ATN improving slowly -Acute ischemic hepatitis-slowly improving -Acute lactic acidosis likely combination of type I-type improved -Hypokalemia-corrected -Acute cholecystitis, diagnoses now in -question -Hyponatremia, suspect hypervolemia from CHF. Normal osmolar. Improved -Chest pain-felt to be noncardiac -Coronary artery disease with cardiac cath in February 2020 revealing chronically occluded RCA extensive [id number] collaterals etc. -Chronic congestive heart failure from systolic dysfunction EF 25-30% -Paroxysmal atrial fibrillation chronically on eliquis -AICD for ventricular tachycardia Plan: In the ICU. Continue IV Flagyl IV Zosyn. IV fluids. Patient started back on IV heparin. Follow. Watch overnight in ICU.
[2020-04-25] MEDS: bisacodyL 10 MG SUPP RECTAL SCH (22:27)
--- NOTE | 2020-04-25 23:39 | PN ---
PROGRESS NOTE DATE OF SERVICE: 04/25/2020 REASON FOR FOLLOWUP: Cholecystitis and enteritis. INTERVAL HISTORY: The patient is currently afebrile. The patient is hemodynamically stable. The patient's NG has been discontinued. The patient denies having any chest pain or shortness of breath or cough. No nausea, vomiting. Denies any abdominal pain or diarrhea. PHYSICAL EXAMINATION: Blood pressure 107/56 with a pulse of 97, temperature 97.7. He is 97% on 6 L nasal cannula. General description is an elderly male up in the bed in no distress. RESPIRATORY SYSTEM: Unlabored breathing with decreased breath sounds at the base. No wheeze. HEART: S1, S2. Regular rate and rhythm. ABDOMEN: Soft. No tenderness. LABS: Hemoglobin 11.5, white count 21.4, BUN of 30, creatinine 1.44. DIAGNOSTIC IMPRESSION AND PLAN: Patient with elevated liver enzymes, sludge in the gallbladder and concern for possible cholecystitis or possible pneumonia evidence of enteritis. The patient is currently covered with Zosyn; to continue while monitoring his clinical course closely. Continue supportive care. MMODL / IJN: [id number] /
[2020-04-26] MEDS: PIPERACILLIN-TAZOBACTAM 3.375 GM in SODIUM CHLORIDE 0.9% 100 ML IVPB SCH ×3 (02:10→17:15)
[2020-04-26] MEDS: metroNIDAZOLE-NS PMX 500 MG in SALINE 1 100ML.BAG IVPB SCH ×3 (02:11→17:13)
[2020-04-26 07:27] LABS: Anisocytosis Moderate; Basophils % (A) 0 %; Eosinophils % (A) 0 %; HCT 35.5 % (39.0-53.0); Hypochromasia Marked; Lymphocytes # (A) 1.7 k/uL (1.0-4.8); Lymphocytes % (A) 8 %; MCH 26.5 pg (25.0-35.0); MCV 85.6 fL (80.0-100.0); Mean Platelet Volume 10.4; Microcytosis Slight; Monocytes # (A) 1.3 k/uL (0-1.0); Monocytes % (A) 6 %; Neutrophils # (A) 16.2 k/uL (1.3-7.7); Neutrophils % (A) 82 %; Poikilocytosis Moderate; RBC 4.15 m/uL (4.30-5.90); RDW 22.1 % (11.5-15.5); WBC 19.7 k/uL (3.8-10.6)
[2020-04-26 08:02] LABS: Platelet Count 97 k/uL (150-450)
[2020-04-26] MEDS: HEPARIN SOD,PORK IN 0.45% NACL 25,000 UNIT in 0.45% NACL 1 250ML.BAG IV SCH ×2 (08:41→13:52)
[2020-04-26] MEDS: MIDODRINE 5 MG TAB PO SCH ×4 (08:41→17:16)
--- NOTE | 2020-04-26 08:41 | P.PN ---
Subjective Progress Note Date: 04/26/20 This is a 70-year-old male who presented to the emergency department on April 17, at 1020 in the morning. The patient's complaints include primarily chest and abdominal pain. It began the night prior about 12 hours earlier. It's sharp constant consistent pain in the lower right chest area and right upper abdominal area. He denied any nausea, vomiting, or diarrhea. The patient was recently inpatient for pulmonary edema and ascites. The patient was evaluated and discovered to have acute cholecystitis. The patient was to have surgery but the sodium was low and so the surgery was canceled. Then, the patient was hypotensive, and hypothermic. In addition, his lactic acid had risen to above 12. For that reason, the patient was admitted to the intensive care unit for further evaluation and management. The patient's white count jumped up to 31.7, hemoglobin 11.7, hematocrit 37.5, and platelet count was normal. Sodium was 130, potassium 5.7, chloride 73, CO2 11, anion gap was 26, a nd BUN and creatinine were 44 and 2.64. These labs are consistent with a anion gap metabolic acidosis, secondary to renal failure and lactic acidemia. The patient's AST was 544, ALT 144, and alkaline phosphatase was 205. Bilirubin was elevated at 3.0. Chest x-ray today showed bilateral areas of atelectasis, pneumonia, edema, and effusions. CT of the abdomen and pelvis revealed evidence of moderate acute enteritis involving the duodenum and proximal jejunum, bilateral lower pleural effusions, and associated compressive atelectasis. The patient was only started on antibiotics. He was given left internal jugular triple-lumen catheter, and a left radial art line. His current antibiotic is Zosyn and flagyl. An NG tube in place. He continued to have abdominal pain. Tends to localize in the right upper quadrant. It is diffuse as well though. On today's evaluation of 04/25/2020, the patient is being seen for a follow-up. He is having mild abdominal pain which is improved compared to yesterday. No fever. White cell count is at 21.4. Hemoglobin is at 11.5. He has 87% neutr ophilia. On his electrolytes, sodium level is at 146 with a serum bicarb of 31 and a creatinine of 1.4 which is improved compared to yesterday when his creatinine was at 1.9. His bilirubin is at 4.6 with an AST of 125 and ALT of 76 both liver function tests are improving and the bilirubin is essentially slightly higher compared to yesterday. His alkaline phosphatase is stable at 183. His lactic acidosis high as 12 and is down to 1.4. The patient remains on antibiotic coverage utilizing a combination of Zosyn and Flagyl. He has history of chronic atrial fibrillation current rhythm is sinus and the patient is not receiving any form of anticoagulation for now. On 04/26/2019 100 mL the patient for the follow-up is awake and alert. The plan is to proceed with cholecystectomy today. Terms of his abdomen, the patient's abdomen is nontender and is soft and he has positive bowel sounds. He is not having any nausea or emesis. The patient is scheduled to undergo a cholecystectomy noontime today. He is currently nothing by mouth. He remains in atrial fibrillation. He was given IV heparin yesterday and heparin and to be discontinued as the patient's been reviewed was coming back supratherapeutic. Currently is off anticoagulation. My plan is to keep him off anticoagulation for the cholecystectomy and ultimately the patient will be switched to oral anticoagulation following his surgery. He remains on a combination of Zosyn and Flagyl. No bowel movement activity yet. No abdominal distention. No fever. No chills. Urine output was slightly diminished earlier this morning and the patient was given 1 L of normal saline. White cell count is down to 19.7 with a hemoglobin of 11. These electrodes are still pending for now. No altered mentation. No signs of any decompensated heart failure Objective - Vital Signs Vital signs: Vital Signs Temp 97.8 F 04/26/20 04:00 Pulse 96 04/26/20 06:00 Resp 20 04/26/20 06:00 BP 105/62 04/22/20 16:00 Pulse Ox 88 L 04/26/20 06:00 Intake & Output 04/25/20 04/26/20 04/26/20 18:59 06:59 18:59 Intake Total 860.092 0612 Output Total 640 620 Balance 11.415 620 Weight 68.2 kg 68.9 kg Intake: IV 630 1240 NACL 280 1240 Piperacillin-Tazobactam 3 200 .375 gm In Sodium Chloride 0.9% 100 ml @ 25 mls/hr IVPB Q8HR [facility] Rx# :[id number] metroNIDAZOLE-NS PMX 500 150 mg In Saline 1 100ml.bag @ 100 mls/hr IVPB Q8HR [facility] Rx#:[id number] Intake, IV Titration 21.415 Amount Heparin Sod,Pork in 0.45% 21.415 NaCl 25,000 unit In 0.45 % NaCl 1 250ml.bag @ 12 UNITS/KG/HR 8.184 mls/hr IV .Q24H [facility] Rx#: [id number] Output: Urine 640 620 Other: Voiding Method Indwelling Catheter Indwelling Catheter ABP, PAP, CO, CI - Last Documented Arterial Blood Pressure 91/44 - Exam Moderately severe abdominal pain, oriented 3. The patient is lying supine, NG tube in place, now on nasal cannula 5 L. Head exam was generally normal. There was no scleral icterus or corneal arcus. Mucous membranes were moist. Neck was supple and without jugular venous distension, thyromegaly, or carotid bruits. Carotids were easily palpable bilaterally. There was no adenopathy. Cardiovascular examination reveals regular rhythm rate. S1-S2 normal. No S3 or S4. No discernible murmur noted. Lungs reveal bilateral rhonchi and lower lobe crackles. Breath sounds equal bilaterally. Abdominal exam revealed normal bowel sounds. The abdomen was soft, non-tender, and without masses, organomegaly, or appreciable enlargement of the abdominal aorta. Extremities are intact. No cyanosis clubbing or edema. Skin is without rash or lesion. Neurologic examination is brief but nonfocal. - Labs CBC & Chem 7: 04/26/20 06:30 04/25/20 10:52 Labs: Abnormal Lab Results - Last 24 Hours (Table) 04/25/20 04/25/20 04/26/20 Range/Units 10:32 14:39 06:30 WBC 19.7 H (3.8-10.6) k/uL RBC 4.15 L (4.30-5.90) m/uL Hgb 11.0 L (13.0-17.5) gm/dL Hct 35.5 L (39.0-53.0) % RDW 22.1 H (11.5-15.5) % Plt Count 97 L (150-450) k/uL Neutrophils # 16.2 H (1.3-7.7) k/uL Monocytes # 1.3 H (0-1.0) k/uL PT 15.1 H (9.0-12.0) sec INR 1.5 H (<1.2) APTT 160.6 H* 43.0 H (22.0-30.0) sec 04/26/20 Range/Units 07:45 WBC (3.8-10.6) k/uL RBC (4.30-5.90) m/uL Hgb (13.0-17.5) gm/dL Hct (39.0-53.0) % RDW (11.5-15.5) % Plt Count (150-450) k/uL Neutrophils # (1.3-7.7) k/uL Monocytes # (0-1.0) k/uL PT (9.0-12.0) sec INR (<1.2) APTT 32.0 H (22.0-30.0) sec Assessment and Plan Plan: 1 Sepsis, secondary to suspected acute cholecystitis/enteritis. The patient has ischemic changes involving the duodenum and jejunum in addition to biliary sludge the patient presented with abdominal pain, diffuse in addition to severe lactic acidosis. Highly suspicious that this was a mesenteric ischemia. Note that the patient was seen by vascular surgery and the patient was also seen by general surgery. The patient was resuscitated. The patient was given fluids and antibiotics and the patient's lactic acid level improved and his abdominal pain is subsided. Acute kidney injury is improving and the liver functions is also improving. He remains nothing by mouth. The patient has undergone a visceral angiogram showed mild disease of the celiac artery and no significant stenosis of the SMA, I am a and there was no clear evidence indicating PAD of th e mesenteric arteries he had still, the possibility of ischemic colitis cannot be ruled out special ed his underlying severe cardiomyopathy. On today's evaluation of 04/26/2020, the patient is currently of any chest pain. No signs of sepsis or organ dysfunction. The patient is going to undergo a laparoscopic cystectomy today by general surgery. He is off anticoagulation for now. He remains in atrial fibrillation. Hemodynamically stable on no pressors. White cell count is up to 19. 2 Hypothermia, and hypotension, secondary to suspected sepsis, improved. 3 Possible small bowel ischemic/inflammatory changes. 4 acute kidney injury, improving , creatinine is down to 1.44 him yesterday and would awaiting follow-up renal function from today 5 acute Lactic acidemia, much improved. 6 Hyponatremia, improved, post Semsca treatment, sodium level has normalized 7 History of chronic atrial fibrillation. The patient is currently on no anticoagulants 8 History of CAD, status post stent placement. Coronary artery disease with chronically occluded RCA and collaterals in addition to moderate to moderate disease involving LAD and circumflex and this is based on a cardiac catheterization from the year 1999 9 History of hyperlipidemia. 10 History of essential hypertension. 11 History of myocardial infarction. 12 chronic atrial fibrillation, slightly tachycardic this morning with a wide bundle branch block pattern 13 CHF with an EF 35% 14 History of previous cardiac ablation and AICD placement. The patient has history of V. tach and the patient undergone previous ablation 15 PAD without significant mesenteric artery occlusive disease Plan: IV is running at 30 mL an hour Keep nothing by mouth today, pending laparoscopic cholecystectomy Keep the patient off anticoagulation for now Abdomen is nontender He is on nasal O2 at 6 L. Flagyl and Zosyn. Repeat chest x-ray today Keep the patient ICU for now. We'll continue to follow I will discuss this case with the rest of the consultants including vascular surgery and general surgery and cardiology. Critically care evaluation Time with Patient: Greater than 30 Time with Patient: Greater than 30
[2020-04-26 08:47] LABS: Albumin 2.2 g/dL (3.5-5.0); Calcium 7.8 mg/dL (8.4-10.2); Potassium 3.5 mmol/L (3.5-5.1); Total Bilirubin 4.2 mg/dL (0.2-1.3); Total Protein 5.1 g/dL (6.3-8.2)
[2020-04-26] MEDS: METOPROLOL SUCCINATE (ER) 25 MG TAB.ER.24H PO SCH (09:09)
[2020-04-26] MEDS: PANTOPRAZOLE 40 MG/10 ML VIAL IV SCH (09:10)
[2020-04-26] MEDS ORDERED: Potassium Replacement Protocol 1 EACH MISC MISCELLANE PRN (09:19)
[2020-04-26] MEDS: POTASSIUM CHLORIDE 20 MEQ in WATER FOR INJECTION 1 100ML.BAG IVPB SCH ×2 (09:26→11:02)
[2020-04-26] MEDS ORDERED: FUROSEMIDE 10 MG/ML 10 ML VIAL IV STA (09:46)
--- NOTE | 2020-04-26 10:04 | PN ---
PROGRESS NOTE Gerber is a 70-year-old gentleman with complex and multiple medical problems including atrial fibrillation, ischemic cardiomyopathy, hypotension, ventricular tachycardia who was admitted to the hospital with sepsis, abdominal pain and has cholecystitis. He is to undergo cholecystectomy today. PHYSICAL EXAMINATION: On exam, his heart rate is around 100 beats per minute. Blood pressure is 101/46, respiratory rate is 18. Chest exam reveals diminished air entry at the bases. Heart exam reveals first and second heart sounds. No gallop. There is a systolic murmur at the left lower sternal border. Abdomen is soft. Examination of extremities did not reveal any edema. Peripheral pulses are felt. LABS: Labs show that the hemoglobin is 11. Potassium is 3.5. Creatinine is 1.1. ASSESSMENT: 1. Persistent atrial fibrillation with controlled ventricular rate. 2. Ischemic cardiomyopathy. 3. Ventricular tachycardia. 4. Coronary artery disease. 5. Cholecystitis. 6. Sepsis. PLAN: Continue current measures. Heparin is on hold. After surgery, we can resume the Eliquis. MMODL / IJN: [id number] /
--- NOTE | 2020-04-26 10:37 | XR ---
EXAMINATION TYPE: XR chest 1V portable DATE OF EXAM: 04/26/2020 COMPARISON: 04/23/2020 HISTORY: Decreased O2 saturation TECHNIQUE: Single frontal view of the chest is obtained. FINDINGS: Diffuse interstitial pattern with bilateral consolidation and pleural effusion. Cardiac de vice seen with the multiple cardiac leads identified. Central line noted in position. No pneumothorax . Diffuse osteopenia and arthropathy of the shoulders. IMPRESSION: 1. Diffuse bilateral pleural-parenchymal changes are stable. Findings could been the basis of diffuse pneumonia otherwise consider pulmonary edema.
[2020-04-26] MEDS ORDERED: MIDODRINE 5 MG TAB PO ONE (10:50)
--- NOTE | 2020-04-26 13:08 | P.PN ---
Subjective Progress Note Date: 04/26/20 CHIEF COMPLAINT: Chest pain HISTORY OF PRESENT ILLNESS: Patient is being followed in regards to his abdom inal pain and symptomatic cholelithiasis. Patient is in the ICU. He is not feeling well today. He has had worsening shortness of breath and is now requiring 15 L high flow oxygen. This concerns her fluid overload and he is being given Lasix 60 mg IV 1. However, patient is still requiring high amount of oxygen and his blood pressure is starting to drop. Patient is not stable for surgery today. Surgery will be canceled. Afebrile. WBC 19.7 total bili 4.2 AST 62 ALT 56 alk phos 166 potassium 3.5 creatinine 1.16 PHYSICAL EXAM: VITAL SIGNS: Reviewed. GENERAL: Well-developed in no acute distress. HEENT: No sclera icterus. Extraocular movements grossly intact. Moist buccal mucosa. Head is atraumatic, normocephalic. ABDOMEN: Soft. Nondistended. mild discomfort with palpation of the right upper quadrant NEUROLOGIC: Alert and oriented. Cranial nerves II through XII grossly intact. ASSESSMENT: 1. Sepsis possibly due to cholecystitis and enteritis 2. Symptomatic cholelithiasis 3. Enteritis possibly ischemic in nature. Now improving 4. Hyponatremia resolved 5. Acute kidney injury improving 6. Fluid overload PLAN: -tentatively plan for laparoscopic cholecystectomy tomorrow, 04/26/[address] Farah, if patient is medically stable -NPO midnightafter -Continue ICU management and supportive care -Continue antibiotics -Patient is currently anticoagulated with IV heparin for his A. fib Physician Chemical Engineering Technician note has been reviewed by physician. Signing provider agrees with the documented findings, assessment, and plan of care. Objective - Vital Signs Vital signs: Vital Signs Temp 97.4 F L 04/26/20 08:00 Pulse 102 H 04/26/20 11:00 Resp 24 04/26/20 11:00 BP 105/62 04/22/20 16:00 Pulse Ox 93 L 04/26/20 11:00 Intake & Output 04/25/20 04/26/20 04/26/20 18:59 06:59 18:59 Intake Total 197.418 6483 440 Output Total 640 620 230 Balance 11.415 620 210 Weight 68.2 kg 68.9 kg Intake: IV 630 1240 440 NACL 280 1240 90 Piperacillin-Tazobactam 3 200 200 .375 gm In Sodium Chloride 0.9% 100 ml @ 25 mls/hr IVPB Q8HR [facility] Rx# :[id number] Potassium Chloride 20 meq 50 In Water For Injection 1 100ml.bag @ 50 mls/hr IVPB Q2H [facility] Rx#: [id number] metroNIDAZOLE-NS PMX 500 150 100 mg In Saline 1 100ml.bag @ 100 mls/hr IVPB Q8HR [facility] Rx#:[id number] Intake, IV Titration 21.415 Amount Heparin Sod,Pork in 0.45% 21.415 NaCl 25,000 unit In 0.45 % NaCl 1 250ml.bag @ 12 UNITS/KG/HR 8.184 mls/hr IV .Q24H [facility] Rx#: [id number] Output: Urine 640 620 230 Other: Voiding Method Indwelling Catheter Indwelling Catheter Indwelling Catheter ABP, PAP, CO, CI - Last Documented Arterial Blood Pressure 103/50 - Labs CBC & Chem 7: 04/26/20 06:30 04/26/20 06:30 Labs: Abnormal Lab Results - Last 24 Hours (Table) 04/25/20 04/26/20 04/26/20 Range/Units 14:39 06:30 06:30 WBC 19.7 H (3.8-10.6) k/uL RBC 4.15 L (4.30-5.90) m/uL Hgb 11.0 L (13.0-17.5) gm/dL Hct 35.5 L (39.0-53.0) % RDW 22.1 H (11.5-15.5) % Plt Count 97 L (150-450) k/uL Neutrophils # 16.2 H (1.3-7.7) k/uL Monocytes # 1.3 H (0-1.0) k/uL APTT 43.0 H (22.0-30.0) sec BUN 32 H (9-20) mg/dL Glucose 137 H (74-99) mg/dL Calcium 7.8 L (8.4-10.2) mg/dL Total Bilirubin 4.2 H (0.2-1.3) mg/dL AST 62 H (17-59) U/L ALT 56 H (4-49) U/L Alkaline Phosphatase 166 H (38-126) U/L Total Protein 5.1 L (6.3-8.2) g/dL Albumin 2.2 L (3.5-5.0) g/dL 04/26/20 Range/Units 07:45 WBC (3.8-10.6) k/uL RBC (4.30-5.90) m/uL Hgb (13.0-17.5) gm/dL Hct (39.0-53.0) % RDW (11.5-15.5) % Plt Count (150-450) k/uL Neutrophils # (1.3-7.7) k/uL Monocytes # (0-1.0) k/uL APTT 32.0 H (22.0-30.0) sec BUN (9-20) mg/dL Glucose (74-99) mg/dL Calcium (8.4-10.2) mg/dL Total Bilirubin (0.2-1.3) mg/dL AST (17-59) U/L ALT (4-49) U/L Alkaline Phosphatase (38-126) U/L Total Protein (6.3-8.2) g/dL Albumin (3.5-5.0) g/dL
[2020-04-26] MEDS ORDERED: HEPARIN SODIUM,PORCINE 5,000 UNIT/ML 1 ML VIAL IV PRN (13:35)
[2020-04-26] MEDS ORDERED: HEPARIN SODIUM,PORCINE 5,000 UNIT/ML 1 ML VIAL IV ONE (13:35)
--- NOTE | 2020-04-26 13:39 | PN ---
PROGRESS NOTE DATE OF SERVICE: 04/26/2020. REASON FOR FOLLOWUP: Cholecystitis and enteritis. INTERVAL HISTORY: The patient is currently afebrile. The patient is breathing comfortably. Denies having any chest pain. Minimal cough. No abdominal pain. No nausea, vomiting and no diarrhea has been reported. PHYSICAL EXAMINATION: Blood pressure 103/50 with a pulse of 102, temperature 98. He is 93% on 15 L high-flow oxygen. General description is an elderly male up in the bed in no distress. RESPIRATORY SYSTEM: Unlabored breathing with decreased breath sounds bilaterally. No wheeze. HEART: S1, S2. Regular rate and rhythm. ABDOMEN: Soft, no tenderness. LABS: Hemoglobin 11, white count 19.7, BUN of 32, creatinine 1.16. DIAGNOSTIC IMPRESSION AND PLAN: Patient with cholecystitis and component of enteritis question possibly ischemia. Chest x-ray mostly with pulmonary edema is getting Lasix. The patient is covered with Zosyn to continue and monitor his clinical course. MMODL / IJN: [id number] /
[2020-04-26] MEDS: DOBUTamine DRIP 500 MG in DEXTROSE/WATER 1 250ML.BAG IV SCH (13:52)
--- NOTE | 2020-04-26 16:00 | PN ---
PROGRESS NOTE Patient is seen for followup for acute kidney injury. His acute kidney injury had resolved. Patient was also seen for hyponatremia, which has now resolved. However, he developed volume overload overnight. The patient's urine output had decreased and he received a fluid bolus. However, this morning he was more short of breath and chest x- ray showed evidence of pulmonary vascular congestion. Blood pressure has been on the lower side. The patient was initially scheduled for cholecystectomy, which is currently on hold. On examination today, patient is comfortable. He is lying in bed. He is not in any acute distress. He is complaining of feeling tired. Blood pressure was 113/58, heart rate 105 per minute. He is afebrile. EXAMINATION OF THE HEART: S1 and S2. EXAMINATION OF LUNGS: Decreased breath sounds at bases. Basal crackles are heard. ABDOMEN: Soft, non-tender. Examination of lower extremities shows edema 1+ bilaterally. [employer] exam is grossly intact. Labs show sodium of 143, potassium 3.5, chloride 107. CO2 is 29, BUN 32, creatinine 1.16. ASSESSMENT: 1. Acute kidney injury, acute tubular necrosis, currently improving, with oliguria last night. Currently maintained on IV Lasix for volume overload. Blood pressure is on the lower side. Continue with the midodrine. I will repeat another dose of midodrine. 2. Sepsis associated with cholecystitis and enteritis along with lactic acidosis, maintained on antibiotics, scheduled for cholecystectomy. However, the surgery was canceled, as patient is not stable. 3. Hyponatremia on initial admission, status post Samsca, now improved. 4. Cardiomyopathy, ejection fraction 35%. 5. Congestive heart failure, acute on top of chronic, mostly systolic. 6. Chronic atrial fibrillation with controlled ventricular response. PLAN: Agree with IV Lasix. Repeat midodrine. We can repeat the Lasix if urine output does not pick up operator. Avoid IV fluids. The patient has also been started on dobutamine. MMODL / IJN: [id number] /
--- NOTE | 2020-04-26 18:03 | P.PN ---
Subjective Progress Note Date: 04/26/20 Principal diagnosis: abdominal pain Much improved this morning. Patient states his abdominal pain is better and does not have any nausea or vomiting at this time. He denies any fevers, chills, chest pain or shortness of breath.. Objective - Vital Signs Vital signs: Vital Signs Temp 97.4 F L 04/26/20 16:00 Pulse 103 H 04/26/20 17:00 Resp 27 H 04/26/20 17:00 BP 105/62 04/22/20 16:00 Pulse Ox 94 L 04/26/20 17:00 Intake & Output 04/25/20 04/26/20 04/26/20 18:59 06:59 18:59 Intake Total 378.029 0998 710.2 Output Total 640 620 640 Balance 11.415 620 70.2 Weight 68.2 kg 68.9 kg Intake: IV 630 1240 710.2 DOBUTamine DRIP 500 mg In 10.2 Dextrose/Water 1 250ml. bag @ 2.5 MCG/KG/MIN 5. 168 mls/hr IV .Q24H [facility] Rx#:[id number] NACL 280 1240 150 Piperacillin-Tazobactam 3 200 300 .375 gm In Sodium Chloride 0.9% 100 ml @ 25 mls/hr IVPB Q8HR [facility] Rx# :[id number] Potassium Chloride 20 meq 50 In Water For Injection 1 100ml.bag @ 50 mls/hr IVPB Q2H [facility] Rx#: [id number] metroNIDAZOLE-NS PMX 500 150 200 mg In Saline 1 100ml.bag @ 100 mls/hr IVPB Q8HR [facility] Rx#:[id number] Intake, IV Titration 21.415 Amount Heparin Sod,Pork in 0.45% 21.415 NaCl 25,000 unit In 0.45 % NaCl 1 250ml.bag @ 12 UNITS/KG/HR 8.184 mls/hr IV .Q24H [facility] Rx#: [id number] Output: Urine 640 620 640 Other: Voiding Method Indwelling Catheter Indwelling Catheter Indwelling Catheter ABP, PAP, CO, CI - Last Documented Arterial Blood Pressure 99/53 - Exam A&O 3 NCAT PERRL, EOMI, No scleral icterus No retractions Regular rate Abdomen soft, nontender, nondistended - Labs CBC & Chem 7: 04/26/20 06:30 04/26/20 06:30 Labs: Abnormal Lab Results - Last 24 Hours (Table) 04/26/20 04/26/20 04/26/20 Range/Units 06:30 06:30 07:45 WBC 19.7 H (3.8-10.6) k/uL RBC 4.15 L (4.30-5.90) m/uL Hgb 11.0 L (13.0-17.5) gm/dL Hct 35.5 L (39.0-53.0) % RDW 22.1 H (11.5-15.5) % Plt Count 97 L (150-450) k/uL Neutrophils # 16.2 H (1.3-7.7) k/uL Monocytes # 1.3 H (0-1.0) k/uL APTT 32.0 H (22.0-30.0) sec BUN 32 H (9-20) mg/dL Glucose 137 H (74-99) mg/dL Calcium 7.8 L (8.4-10.2) mg/dL Total Bilirubin 4.2 H (0.2-1.3) mg/dL AST 62 H (17-59) U/L ALT 56 H (4-49) U/L Alkaline Phosphatase 166 H (38-126) U/L Total Protein 5.1 L (6.3-8.2) g/dL Albumin 2.2 L (3.5-5.0) g/dL Assessment and Plan Assessment: 1. Sepsis secondary to acute enteritis 2. Abdominal pain secondary to above-improved 3. Acute kidney injury 4. Global hypoperfusion 5. PAD without significant mesenteric artery occlusive disease Plan: No vascular surgical intervention at this time. Patient scheduled for surgery today. Recommend aspirin, statin after discharge. Will re-eval prn.
[2020-04-26] MEDS ORDERED: DEXAMETHASONE SOD PHOSPHATE 4 MG/ML 1 ML VIAL IV ONE (18:14)
[2020-04-26] MEDS ORDERED: LACTATED RINGERS 1,000 ML IV SCH (18:15)
--- NOTE | 2020-04-26 18:33 | P.PN ---
Progress Note - Text Progress Note Date: 04/26/20 Presenting complaint Chest pain: Interval course: Patient was recently in the hospital with ischemic colitis with resultant hypotension lactic acidosis ischemic hepatitis, acute CHF exacerbation was admitted to the ICU. Now presented with chest pain. Found to be atypical. Negative troponins. Ultrasound of the abdomen showed gallbladder sludge. Suspicion for acute cholecystitis. Followed by surgery. No history of carotid artery disease. Known EF of 30-35%. Also atrial fibrillation, hyperlipidemia, AICD. April 20-surgery was postponed for a sodium of 127 by anesthesia. Patient was given salt tablet fluid restriction and held of free fluid. Following day sodium went to 128. Nephrology consulted. Ordered Samsca. On April 22 patient had increasing abdominal pain. Worsening renal function. Lactic acidosis. Moved to ICU. Started IV Zosyn. IV fluids. Bicarbonate drip. Hypothermic. Today-ICU: Patient dropped his blood pressure last night. Given IV fluid bolus. This morning was short of breath. Was given IV Lasix. Not much urine output. Heart rate is up. Tired. On feeling well. Review of systems: Was done for constitutional, cardiovascular, GI, pulmonary. relevant finding as above Active Medications Al Hydroxide/Mg Hydroxide (Mag Hydrox/Al Hydrox/Simeth 30 Ml Cup) 30 ml PO Q4HR PRN PRN Reason: GI Upset Last Admin: 04/18/20 00:31 Dose: 30 ml Documented by: Bisacodyl (Bisacodyl 10 Mg Supp) 10 mg RECTAL HS [facility] Last Admin: 04/25/20 22:27 Dose: 10 mg Documented by: Heparin Sodium (Porcine) (Heparin Sodium,Porcine 5,000 Unit/Ml 1 Ml Vial) 0 unit IV PER PROTOCOL PRN; Protocol PRN Reason: Low PTT Heparin Sodium (Porcine) (Heparin Sodium,Porcine 5,000 Unit/Ml 1 Ml Vial) 0 unit IV PER PROTOCOL PRN; Protocol PRN Reason: Low PTT Hydromorphone HCl (Hydromorphone 1 Mg/Ml 1 Ml Syringe) 1 mg IVP Q3HR PRN PRN Reason: Pain Last Admin: 04/23/20 06:31 Dose: 1 mg Documented by: Hydromorphone HCl (Hydromorphone 0.5 Mg/0.5 Ml Syringe) 0.5 mg IVP Q5M PRN PRN Reason: Pain Control Stop: 04/27/20 23:00 Piperacillin Sod/Tazobactam (Sod 3.375 gm/ Sodium Chloride) 100 mls @ 25 mls/hr IVPB Q8HR [facility] Last Admin: 04/26/20 17:15 Dose: 25 mls/hr Documented by: Metronidazole 500 mg/ IV (Solution) 100 mls @ 100 mls/hr IVPB Q8HR [facility] Last Admin: 04/26/20 17:13 Dose: 100 mls/hr Documented by: Dobutamine HCl/Dextrose 500 mg (/ IV Solution) 250 mls @ 5.168 mls/hr IV .Q24H [facility] Last Admin: 04/26/20 13:52 Dose: 2.5 mcg/kg/min, 5.168 mls/hr Documented by: Heparin Sodium/Sodium Chloride (25,000 unit/ Sodium Chloride) 250 mls @ 8.268 mls/hr IV .Q24H [facility]; Protocol Last Admin: 04/26/20 13:52 Dose: 12 units/kg/hr, 8.268 mls/hr Documented by: Lactated Ringer's (Lactated Ringers) 1,000 mls @ 20 mls/hr IV .Q24H [facility] Lidocaine HCl (Lidocaine 1% (10mg/Ml) For Iv Start) 0.1 ml INTRADERMA PER PROTOCOL PRN PRN Reason: IV Start Metoprolol Succinate (Metoprolol Succinate (Er) 25 Mg Tab.Er.24h) 25 mg PO DAILY [facility] Last Admin: 04/26/20 09:09 Dose: 25 mg Documented by: Midodrine (Midodrine 5 Mg Tab) 5 mg PO AC-TID [facility] Last Admin: 04/26/20 17:16 Dose: 5 mg Documented by: Miscellaneous Information (Potassium Replacement Protocol 1 Each Misc) 1 each MISCELLANE DAILY PRN; Protocol PRN Reason: Per Protocol Miscellaneous Information (Potassium Replacement Protocol 1 Each Misc) 1 each MISCELLANE DAILY PRN; Protocol PRN Reason: Per Protocol Nitroglycerin (Nitroglycerin Sl Tabs 0.4 Mg Tab) 0.4 mg SUBLINGUAL Q5M PRN PRN Reason: Chest Pain Last Admin: 04/17/20 20:06 Dose: 0.4 mg Documented by: Ondansetron HCl (Ondansetron 4 Mg/2 Ml Vial) 4 mg IVP Q6HR PRN PRN Reason: Nausea And Vomiting Last Admin: 04/24/20 10:01 Dose: 4 mg Documented by: Pantoprazole Sodium (Pantoprazole 40 Mg/10 Ml Vial) 40 mg IV DAILY [facility] Last Admin: 04/26/20 09:10 Dose: 40 mg Documented by: On examination: VITAL SIGNS: 97.4, 101, 24, 102/54, 93% on BiPAP GENERAL APPEARANCE: Reclining in bed, awake, tired HEENT: Normal external appearance of nose and ear. Oral cavity normal EYES: Pupils equal. Conjunctiva normal. NECK: JVD not raised. Mass not palpable. RESPIRATORY: Respiratory effort normal. Lungs clear to auscultation. CARDIOVASCULAR: Heart sounds irregular. No edema. ABDOMEN: Soft. Liver and spleen not palpable. No abdominal tenderness, no obvious guarding rigidity. No mass palpable. PSYCHIATRY: Alert and oriented x3. Mood and affect anxious. Investigations: April 26: White count 8.7 hemoglobin 11 platelets 97 potassium 3.5 creatinine 1.16 AST 62 ALT 56 Chest x-ray film personally reviewed by me-bilateral possible pulmonary edema. Interstitial infiltrate cannot be ruled out April 25: White count 21.4 hemoglobin 11.5 platelets 121 potassium 3.6 bun 30 creatinine 1.44 AST 125 ALT 76 April 24: White count 8.6 hemoglobin 11 platelets 138 INR 1.6 potassium 2.9 bun 40 creatinine 1.93 AST 224 ALT 104 April 23: White count 25 hemoglobin 11 increased neutrophils INR 1.9 potassium 4.2 bicarb 29 bun 50 creatinine 2.45 AST 356 ALT 128 Computed tomography scan of the abdomen-persistent but improved wall thickening involving the duodenum and proximal jejunum. April 22: White count 31.7 hemoglobin 11.7 potassium 5.7 bun 44 creatinine 2.64 bicarb 11 lactic acid 12.6 AST 544 ALT 144 Computed tomography scan abdomen and pelvis-mild to moderate acute enteritis involving the duodenum and proximal jejunum April 21: Sodium 128 bun 29 creatinine 1.58. Serum osmolality 282 White count 8.6 hemoglobin 12.7 platelets 298 sodium 127 potassium 4.7 creatinine 1.26 Coronavirus [PCR]-not detected EKG tracing-left bundle-branch block pattern Assessment: -Acute enteritis involving the duodenum and proximal jejunum. Probably hypotensive episode/etiology. With hydration that seems to have improved. -Acute metabolic acidosis from worsening renal -corrected -Acute kidney injury, ATN-significant improved -Acute ischemic hepatitis-improving -Acute lactic acidosis likely combination of type I-type improved -Hypokalemia-corrected -Acute cholecystitis, diagnoses now in -question -Hyponatremia, suspect hypervolemia from CHF. Normal osmolar. Improved -Chest pain-felt to be noncardiac -Coronary artery disease with cardiac cath in February 2020 revealing chronically occluded RCA extensive [id number] collaterals etc. -Chronic congestive heart failure from systolic dysfunction EF 25-30% -Paroxysmal atrial fibrillation chronically on eliquis -AICD for ventricular tachycardia Plan: In the ICU. Continue IV Flagyl IV Zosyn. , IV heparin. Plan this after was to start the patient on dobutamine. Hold off any surgery for now. Follow with consultants. Episode of acute CHF given IV Lasix.
[2020-04-26] MEDS: bisacodyL 10 MG SUPP RECTAL SCH (20:19)
[2020-04-26] MEDS ORDERED: FUROSEMIDE 10 MG/ML 4 ML VIAL IV ONE (21:00)
[2020-04-27] MEDS: PIPERACILLIN-TAZOBACTAM 3.375 GM in SODIUM CHLORIDE 0.9% 100 ML IVPB SCH ×4 (01:56→23:40)
[2020-04-27] MEDS: metroNIDAZOLE-NS PMX 500 MG in SALINE 1 100ML.BAG IVPB SCH ×4 (01:56→23:40)
[2020-04-27 06:34] LABS: Anisocytosis Moderate; Basophils % (A) 0 %; Eosinophils % (A) 0 %; HCT 34.2 % (39.0-53.0); HGB 10.5 gm/dL (13.0-17.5); Hypochromasia Marked; Lymphocytes # (A) 1.3 k/uL (1.0-4.8); Lymphocytes % (A) 8 %; MCH 26.1 pg (25.0-35.0); MCHC 30.7 g/dL (31.0-37.0); MCV 84.9 fL (80.0-100.0); Mean Platelet Volume 12.1; Microcytosis Slight; Monocytes # (A) 0.9 k/uL (0-1.0); Monocytes % (A) 6 %; Neutrophils # (A) 13.2 k/uL (1.3-7.7); Neutrophils % (A) 83 %; Poikilocytosis Slight; RBC 4.02 m/uL (4.30-5.90); RDW 21.8 % (11.5-15.5); WBC 15.8 k/uL (3.8-10.6)
[2020-04-27 06:38] LABS: Platelet Count 76 k/uL (150-450)
[2020-04-27 06:58] LABS: Albumin 2.2 g/dL (3.5-5.0); Calcium 8.2 mg/dL (8.4-10.2); Potassium 3.9 mmol/L (3.5-5.1)
[2020-04-27] MEDS ORDERED: HYDROmorphone 0.5 MG/0.5 ML SYRINGE IVP PRN (07:00)
[2020-04-27] MEDS: HYDROmorphone 1 MG/ML 1 ML SYRINGE IVP PRN (07:13)
--- NOTE | 2020-04-27 07:44 | P.PN ---
Subjective Progress Note Date: 04/27/20 This is a 70-year-old male who presented to the emergency department on April 17, at 1020 in the morning. The patient's complaints include primarily chest and abdominal pain. It began the night prior about 12 hours earlier. It's sharp constant consistent pain in the lower right chest area and right upper abdominal area. He denied any nausea, vomiting, or diarrhea. The patient was recently inpatient for pulmonary edema and ascites. The patient was evaluated and discovered to have acute cholecystitis. The patient was to have surgery but the sodium was low and so the surgery was canceled. Then, the patient was hypotensive, and hypothermic. In addition, his lactic acid had risen to above 12. For that reason, the patient was admitted to the intensive care unit for further evaluation and management. The patient's white count jumped up to 31.7, hemoglobin 11.7, hematocrit 37.5, and platelet count was normal. Sodium was 130, potassium 5.7, chloride 73, CO2 11, anion gap was 26, a nd BUN and creatinine were 44 and 2.64. These labs are consistent with a anion gap metabolic acidosis, secondary to renal failure and lactic acidemia. The patient's AST was 544, ALT 144, and alkaline phosphatase was 205. Bilirubin was elevated at 3.0. Chest x-ray today showed bilateral areas of atelectasis, pneumonia, edema, and effusions. CT of the abdomen and pelvis revealed evidence of moderate acute enteritis involving the duodenum and proximal jejunum, bilateral lower pleural effusions, and associated compressive atelectasis. The patient was only started on antibiotics. He was given left internal jugular triple-lumen catheter, and a left radial art line. His current antibiotic is Zosyn and flagyl. An NG tube in place. He continued to have abdominal pain. Tends to localize in the right upper quadrant. It is diffuse as well though. On today's evaluation of 04/25/2020, the patient is being seen for a follow-up. He is having mild abdominal pain which is improved compared to yesterday. No fever. White cell count is at 21.4. Hemoglobin is at 11.5. He has 87% neutr ophilia. On his electrolytes, sodium level is at 146 with a serum bicarb of 31 and a creatinine of 1.4 which is improved compared to yesterday when his creatinine was at 1.9. His bilirubin is at 4.6 with an AST of 125 and ALT of 76 both liver function tests are improving and the bilirubin is essentially slightly higher compared to yesterday. His alkaline phosphatase is stable at 183. His lactic acidosis high as 12 and is down to 1.4. The patient remains on antibiotic coverage utilizing a combination of Zosyn and Flagyl. He has history of chronic atrial fibrillation current rhythm is sinus and the patient is not receiving any form of anticoagulation for now. On 04/26/2019 100 mL the patient for the follow-up is awake and alert. The plan is to proceed with cholecystectomy today. Terms of his abdomen, the patient's abdomen is nontender and is soft and he has positive bowel sounds. He is not having any nausea or emesis. The patient is scheduled to undergo a cholecystectomy noontime today. He is currently nothing by mouth. He remains in atrial fibrillation. He was given IV heparin yesterday and heparin and to be discontinued as the patient's been reviewed was coming back supratherapeutic. Currently is off anticoagulation. My plan is to keep him off anticoagulation for the cholecystectomy and ultimately the patient will be switched to oral anticoagulation following his surgery. He remains on a combination of Zosyn and Flagyl. No bowel movement activity yet. No abdominal distention. No fever. No chills. Urine output was slightly diminished earlier this morning and the patient was given 1 L of normal saline. White cell count is down to 19.7 with a hemoglobin of 11. These electrodes are still pending for now. No altered mentation. No signs of any decompensated heart failure On 04/27/2019, I'm seeing the patient for a follow-up. Unfortunately, since yesterday afternoon, that it been some decompensation the patient's pulmonary status. The patient became progressively more hypoxic. He was placed on oxygen at 15 L high flow. A repeat chest x-ray was done and the patient was an obvious pulmonary edema. At that point, he was given Lasix. His initial response was minimal. Subsequently he was started on dobutamine at 2.5 g per KG per minute. He started making better urine output. He was given a total of 60 mg IV push Lasix and later on he was given additional 40 mg IV push. Current urine output is in order of 50 mL an hour. He is started on oxygen at 15 L. Chest x-ray continues to be abnormal with pulmonary edema and the patient's crackling on both sides of his lungs. He has positive JVDs. His cardiac rhythm is irregular consistent with atrial fibrillation with a bundle-branch block pattern. He remains on IV heparin. Earlier this morning, he started again to have diffuse abdominal pain. He was maintained on a combination of Zosyn and Flagyl. No diarrhea. No abdominal distention. He was given Dilaudid and his pain is under better control for now. He has adequate pulses in lower extremities bilaterally although they're diminished. He is lethargic but arousable. He with follows some simple commands. His family was at the bedside yesterday and we had a lengthy discussion about his status and prognosis which is obviously poor. The patient was scheduled to undergo a cholecystectomy. However, based on his li mited and borderline condition, the surgery has been postponed. For now, the white cell count is down to 15.8 from 19.7. Hemoglobin is at 10.5 mile his platelets have dropped down to 76, his. He is therapeutic at 61, his BUN is at 35 with a creatinine of 1.2, glucose is 184, calcium level is at 8.2, AST and ALP are both within normal limits and alkaline phosphatase is at 151 with an albumin level of 2.2. He is afebrile for now. Objective - Vital Signs Vital signs: Vital Signs Temp 97.4 F L 04/27/20 04:00 Pulse 105 H 04/27/20 06:00 Resp 46 H 04/27/20 07:00 BP 105/62 04/22/20 16:00 Pulse Ox 74 L 04/27/20 07:00 Intake & Output 04/26/20 04/27/20 04/27/20 18:59 06:59 18:59 Intake Total 725.3 313.585 20 Output Total 660 665 75 Balance 65.3 -351.415 -55 Weight 71.9 kg Intake: IV 725.3 240 20 DOBUTamine DRIP 500 mg In 15.3 Dextrose/Water 1 250ml. bag @ 2.5 MCG/KG/MIN 5. 168 mls/hr IV .Q24H [facility] Rx#:[id number] NACL 160 240 20 Piperacillin-Tazobactam 3 300 .375 gm In Sodium Chloride 0.9% 100 ml @ 25 mls/hr IVPB Q8HR [facility] Rx# :[id number] Potassium Chloride 20 meq 50 In Water For Injection 1 100ml.bag @ 50 mls/hr IVPB Q2H [facility] Rx#: [id number] metroNIDAZOLE-NS PMX 500 200 mg In Saline 1 100ml.bag @ 100 mls/hr IVPB Q8HR [facility] Rx#:[id number] Intake, IV Titration 73.585 Amount Heparin Sod,Pork in 0.45% 73.585 NaCl 25,000 unit In 0.45 % NaCl 1 250ml.bag @ 12 UNITS/KG/HR 8.268 mls/hr IV .Q24H [facility] Rx#: [id number] Output: Urine 660 665 75 Other: Voiding Method Indwelling Catheter Indwelling Catheter ABP, PAP, CO, CI - Last Documented Arterial Blood Pressure 101/63 - Exam Moderately severe abdominal pain, oriented 3. The patient is lying supine, NG tube in place, now on nasal cannula 15 L. she is lethargic. He is following so me commands. He is arousable and able to communicate and he seems to be appropriate at this point in time. Head exam was generally normal. There was no scleral icterus or corneal arcus. Mucous membranes were moist. Neck was supple and without jugular venous distension, thyromegaly, or carotid bruits. Carotids were easily palpable bilaterally. There was no adenopathy. Cardiovascular examination reveals regular rhythm rate. S1-S2 normal. No S3 or S4. No discernible murmur noted. Lungs reveal bilateral rhonchi and lower lobe crackles. Breath sounds equal bilaterally. The patient does have bilateral crackles. Abdominal exam revealed normal bowel sounds. The abdomen was soft, non-tender, and without masses, organomegaly, or appreciable enlargement of the abdominal aorta. She was having diffuse abdominal tenderness earlier and he was given Dilaudid and currently he seems to be nontender on my physical examination. Bowel sounds are sluggish. Extremities are intact. No cyanosis clubbing or edema. Diminished pulses in the lower extremities bilaterally. Extremities are still warm. Skin is without rash or lesion. Neurologic examination is brief but nonfocal. - Labs CBC & Chem 7: 04/27/20 06:00 04/27/20 06:00 Labs: Abnormal Lab Results - Last 24 Hours (Table) 04/26/20 04/26/2021 Range/Units 06:30 06:30 07:45 WBC (3.8-10.6) k/uL RBC (4.30-5.90) m/uL Hgb (13.0-17.5) gm/dL Hct (39.0-53.0) % MCHC (31.0-37.0) g/dL RDW (11.5-15.5) % Plt Count 97 L (150-450) k/uL Neutrophils # 16.2 H (1.3-7.7) k/uL Monocytes # 1.3 H (0-1.0) k/uL APTT 32.0 H (22.0-30.0) sec Chloride (98-107) mmol/L BUN 32 H (9-20) mg/dL Glucose 137 H (74-99) mg/dL Calcium 7.8 L (8.4-10.2) mg/dL Total Bilirubin 4.2 H (0.2-1.3) mg/dL AST 62 H (17-59) U/L ALT 56 H (4-49) U/L Alkaline Phosphatase 166 H (38-126) U/L Total Protein 5.1 L (6.3-8.2) g/dL Albumin 2.2 L (3.5-5.0) g/dL 04/26/20 04/27/20 04/27/20 Range/Units 20:37 06:00 06:00 WBC 15.8 H (3.8-10.6) k/uL RBC 4.02 L (4.30-5.90) m/uL Hgb 10.5 L (13.0-17.5) gm/dL Hct 34.2 L (39.0-53.0) % MCHC 30.7 L (31.0-37.0) g/dL RDW 21.8 H (11.5-15.5) % Plt Count 76 L (150-450) k/uL Neutrophils # 13.2 H (1.3-7.7) k/uL Monocytes # (0-1.0) k/uL APTT 95.7 H 61.5 H (22.0-30.0) sec Chloride (98-107) mmol/L BUN (9-20) mg/dL Glucose (74-99) mg/dL Calcium (8.4-10.2) mg/dL Total Bilirubin (0.2-1.3) mg/dL AST (17-59) U/L ALT (4-49) U/L Alkaline Phosphatase (38-126) U/L Total Protein (6.3-8.2) g/dL Albumin (3.5-5.0) g/dL 04/27/20 Range/Units 06:00 WBC (3.8-10.6) k/uL RBC (4.30-5.90) m/uL Hgb (13.0-17.5) gm/dL Hct (39.0-53.0) % MCHC (31.0-37.0) g/dL RDW (11.5-15.5) % Plt Count (150-450) k/uL Neutrophils # (1.3-7.7) k/uL Monocytes # (0-1.0) k/uL APTT (22.0-30.0) sec Chloride 109 H (98-107) mmol/L BUN 35 H (9-20) mg/dL Glucose 184 H (74-99) mg/dL Calcium 8.2 L (8.4-10.2) mg/dL Total Bilirubin 4.0 H (0.2-1.3) mg/dL AST (17-59) U/L ALT (4-49) U/L Alkaline Phosphatase 151 H (38-126) U/L Total Protein 5.0 L (6.3-8.2) g/dL Albumin 2.2 L (3.5-5.0) g/dL Assessment and Plan Plan: 1 Sepsis, secondary to suspected acute cholecystitis/enteritis. The patient has ischemic changes involving the duodenum and jejunum in addition to biliary sludge the patient presented with abdominal pain, diffuse in addition to severe lactic acidosis. Highly suspicious that this was a mesenteric ischemia. Note that the patient was seen by vascular surgery and the patient was also seen by general surgery. The patient was resuscitated. The patient was given fluids and antibiotics and the patient's lactic acid level improved and his abdominal pain is subsided. Acute kidney injury is improving and the liver functions is also improving. He remains nothing by mouth. The patient has undergone a visceral angiogram showed mild disease of the celiac artery and no significant stenosis of the SMA, I am a and there was no clear evidence indicating PAD of the mesenteric arteries he had still, the possibility of ischemic colitis cannot be ruled out special ed his underlying severe cardiomyopathy. On 04/27/2020, the patient was having some abdominal pain earlier that was rather diffuse consistent with ischemic colitis. He remains on the same antibiotic coverage. He was given Dilaudid and the pain is subsided. His white cell count is up to 15. No abdominal distention. His abdomen is not firm at this point in time. Nevertheless, there is concern of ongoing ischemic bowel. The cholecystectomy still on standby for the patient is further stabilized knowing that his respiratory status had decompensated over the past 24 hours. 2 . acute hypoxic respiratory failuHis chest x-ray still unchanged and the patient still requiring high amounts of oxygen at 15 L. re/secondary to pulmonary edema currently on 15 L about 2 by nasal cannula. The patient is currently on dobutamine at 2.5 mcg/kg per minute. He'll be also started on a L asix drip. Over all, he has associated total of 100 mg of Lasix since yesterday afternoon 3 Possible small bowel ischemic/inflammatory changes. 4 acute kidney injury, improving , creatinine is down to 1.24 renal function continues to improve 5 acute Lactic acidemia, much improved. 6 Hyponatremia, improved, post Semsca treatment, sodium level has normalized 7 History of chronic atrial fibrillation. The patient is currently IV heparin 8 History of CAD, status post stent placement. Coronary artery disease with chronically occluded RCA and collaterals in addition to moderate to moderate d isease involving LAD and circumflex and this is based on a cardiac catheterization from the year 1999 9 History of hyperlipidemia. 10 History of essential hypertension. 11 History of myocardial infarction. 12 chronic atrial fibrillation, slightly tachycardic this morning with a wide bundle branch block pattern 13 CHF with an EF 35% 14 History of previous cardiac ablation and AICD placement. The patient has history of V. tach and the patient undergone previous ablation 15 PAD without significant mesenteric artery occlusive disease 16 Hypothermia, and hypotension, secondary to suspected sepsis, improved. Plan: IV KVO Suggest postponing the laparoscopic cholecystecty continue IV heparin for nowAbdomen is nontender He is on nasal O2 at 15 L. Flagyl and Zosyn. Continue the dobutamine at 2.5 mcg/kg per minute. May consider increasing it up to 5 g. He'll be also started on Lasix drip at 5 mg an hour. Monitor oxygenation. Monitor urine output. Repeat chest x-ray in a.m. Utilizes BiPAP on and off during the day to optimize his respiratory status at a pressure of 12/6 cm of water and FiO2 will be regulated accordingly. Check lactic acid level. Check another set of blood cultures Keep the patient ICU for now. We'll continue to follow I will discuss this case with the rest of the consultants including vascular surgery and general surgery and cardiology. Critically care evaluation Time with Patient: Greater than 30 Time with Patient: Greater than 30
[2020-04-27] MEDS: SODIUM CHLORIDE 0.9% 500 ML 500 ML IV SCH (08:05)
--- NOTE | 2020-04-27 08:27 | XR ---
EXAMINATION TYPE: XR chest 1V portable DATE OF EXAM: 04/27/2020 COMPARISON: 04/26/2019 HISTORY: Shortness of breath TECHNIQUE: Single frontal view of the chest is obtained. FINDINGS: Diffuse interstitial pattern with bilateral consolidation and pleural effusion. Cardiac de vice seen with the multiple cardiac leads identified. Central line noted in position. No pneumothorax . Diffuse osteopenia and arthropathy of the shoulders. IMPRESSION: 2. Diffuse bilateral pleural-parenchymal changes are stable most typical of diffuse pneumonia. Correl ate clinically to exclude pulmonary edema.
[2020-04-27] MEDS: FUROSEMIDE 100 MG in SODIUM CHLORIDE 0.9% 90 ML IV SCH ×2 (09:02→16:22)
[2020-04-27] MEDS: METOPROLOL SUCCINATE (ER) 25 MG TAB.ER.24H PO SCH (09:03)
[2020-04-27] MEDS: PANTOPRAZOLE 40 MG/10 ML VIAL IV SCH (09:03)
[2020-04-27] MEDS: MIDODRINE 5 MG TAB PO SCH ×3 (09:03→17:54)
--- NOTE | 2020-04-27 10:53 | P.PN ---
Subjective Progress Note Date: 04/26/20 Principal diagnosis: Cholecystitis, abdominal pain The patient is seen lying in bed in the ICU currently on BiPAP. He was scheduled for cholecystectomy today which was also on secondary to respiratory issues. No acute complaints. Objective - Vital Signs Vital signs: Vital Signs Temp 98.1 F 04/26/20 12:00 Pulse 101 H 04/26/20 14:00 Resp 20 04/26/20 14:00 BP 105/62 04/22/20 16:00 Pulse Ox 98 04/26/20 14:00 Intake & Output 04/25/20 04/26/20 04/26/20 18:59 06:59 18:59 Intake Total 501.385 1059 470 Output Total 640 620 450 Balance 11.415 620 20 Weight 68.2 kg 68.9 kg Intake: IV 630 1240 470 NACL 280 1240 120 Piperacillin-Tazobactam 3 200 200 .375 gm In Sodium Chloride 0.9% 100 ml @ 25 mls/hr IVPB Q8HR [facility] Rx# :[id number] Potassium Chloride 20 meq 50 In Water For Injection 1 100ml.bag @ 50 mls/hr IVPB Q2H [facility] Rx#: [id number] metroNIDAZOLE-NS PMX 500 150 100 mg In Saline 1 100ml.bag @ 100 mls/hr IVPB Q8HR [facility] Rx#:[id number] Intake, IV Titration 21.415 Amount Heparin Sod,Pork in 0.45% 21.415 NaCl 25,000 unit In 0.45 % NaCl 1 250ml.bag @ 12 UNITS/KG/HR 8.184 mls/hr IV .Q24H [facility] Rx#: [id number] Output: Urine 640 620 450 Other: Voiding Method Indwelling Catheter Indwelling Catheter Indwelling Catheter ABP, PAP, CO, CI - Last Documented Arterial Blood Pressure 121/61 - Exam On physical examination, patient appears comfortable in no apparent distress. HEAD: Normocephalic, atraumatic. EYES: No scleral icterus. No conjunctival injection. MOUTH: No lesions, tongue midline. NECK: Trachea midline, no gross abnormalities. ABDOMEN: Soft, mildly tender to palpation. Bowel sounds are positive. No organomegaly. No guarding or rigidity. EXTREMITIES: bilateralpedal edema. SKIN: No rashes, no jaundice. NEUROLOGIC: Alert and oriented x3. - Labs CBC & Chem 7: 04/27/20 06:00 04/27/20 06:00 Labs: Abnormal Lab Results - Last 24 Hours (Table) 04/25/20 04/26/20 04/26/20 Range/Units 14:39 06:30 06:30 WBC 19.7 H (3.8-10.6) k/uL RBC 4.15 L (4.30-5.90) m/uL Hgb 11.0 L (13.0-17.5) gm/dL Hct 35.5 L (39.0-53.0) % RDW 22.1 H (11.5-15.5) % Plt Count 97 L (150-450) k/uL Neutrophils # 16.2 H (1.3-7.7) k/uL Monocytes # 1.3 H (0-1.0) k/uL APTT 43.0 H (22.0-30.0) sec BUN 32 H (9-20) mg/dL Glucose 137 H (74-99) mg/dL Calcium 7.8 L (8.4-10.2) mg/dL Total Bilirubin 4.2 H (0.2-1.3) mg/dL AST 62 H (17-59) U/L ALT 56 H (4-49) U/L Alkaline Phosphatase 166 H (38-126) U/L Total Protein 5.1 L (6.3-8.2) g/dL Albumin 2.2 L (3.5-5.0) g/dL 04/26/20 Range/Units 07:45 WBC (3.8-10.6) k/uL RBC (4.30-5.90) m/uL Hgb (13.0-17.5) gm/dL Hct (39.0-53.0) % RDW (11.5-15.5) % Plt Count (150-450) k/uL Neutrophils # (1.3-7.7) k/uL Monocytes # (0-1.0) k/uL APTT 32.0 H (22.0-30.0) sec BUN (9-20) mg/dL Glucose (74-99) mg/dL Calcium (8.4-10.2) mg/dL Total Bilirubin (0.2-1.3) mg/dL AST (17-59) U/L ALT (4-49) U/L Alkaline Phosphatase (38-126) U/L Total Protein (6.3-8.2) g/dL Albumin (3.5-5.0) g/dL Assessment and Plan (1) Cholecystitis Narrative/Plan: 70-year-old male with multiple medical comorbidities presenting with chest and abdominal pain. Patient has been receiving treatment in the intensive care unit for possible septicemia related to suspected cholecystitis. Enteritis also noted on prior imaging with computed tomography scan of the abdomen yesterday showing bibasilar atelectasis, improving enteritis of the duodenum and jejunum and recommendation to correlate for cystitis. Patient previously seen on prior hospitalization for elevated liver enzymes. Currently on broad-spectrum antibiotic therapy. Cholecystectomy was postponed secondary to respiratory issues. Current Visit: Yes Status: Acute Code(s): K81.9 - CHOLECYSTITIS, UNSPECIFIED SNOMED Code(s): 79385708 (2) Sludge in gallbladder Current Visit: Yes Status: Acute Code(s): K82.8 - OTHER SPECIFIED DISEASES OF GALLBLADDER SNOMED Code(s): 61612632 (3) Abdominal pain Current Visit: No Status: Acute Code(s): R10.9 - UNSPECIFIED ABDOMINAL PAIN SNOMED Code(s): 64158475 (4) Elevated liver enzymes Narrative/Plan: previously seen on prior hospitalization for elevated liver enzymes with full serologic workup including acute viral hepatitis panel testing at that time negative. Elevation likely multifactorial and secondary to sepsis, currently being treated for acute cholecystitis, cannot rule out component of medication effect. Liver enzymes initially mildly elevated on presentation having increased during his hospitalization with total bilirubin 1.8-4.3, alkaline phosphatase 292-180, AST 37 224 and ALT 33-104. Stable today. Current Visit: No Status: Acute Code(s): R74.8 - ABNORMAL LEVELS OF OTHER SERUM ENZYMES SNOMED Code(s): 517133514 Plan: supportive care Continue ICU management Continue present regimen antibiotic therapy Previous serologic workup for elevated enzymes reviewed and negative on prior hospitalization including acute viral hepatitis panel multiple imaging studies have also been performed with no evidence of ductal dilation to suggest choledocholithiasis Surgical service following the patient, the for management of cholecystitis or possible endoscopes other service Thank you for allowing us to participate in the care of this patient we will continue to follow
--- NOTE | 2020-04-27 11:51 | ECHOF ---
Referral Reason:chf MEASUREMENTS -------- HEIGHT: 172.7 cm WEIGHT: 71.7 kg BP: RVIDd: 2.9 cm (< 3.3) IVSd: 1.0 cm (0.6 - 1.1) LVIDd: 4.5 cm (3.9 - 5.3) LVPWd: 1.3 cm (0.6 - 1.1) IVSs: 1.4 cm LVIDs: 4.3 cm LVPWs: 1.3 cm Ao Diam: 3.0 cm (2.0 - 3.7) AV Cusp: 1.9 cm (1.5 - 2.6) LA Diam: 3.0 cm (2.7 - 3.8) MV EXCURSION: 26.790 mm (> 18.000) MV EF SLOPE: 80 mm/s (70 - 150) EPSS: 1.3 cm MV E Nam: 1.20 m/s MV DecT: 171 ms MV A Nam: 0.46 m/s MV E/A Ratio: 2.59 RAP: 5.00 mmHg RVSP: 61.02 mmHg FINDINGS -------- Pacerwire seen in RV and RA. This was a technically difficult study with suboptimal views. The left ventricular size is normal. There is mild concentric left ventricular hypertrophy. There is severe global hypokinesis of LV . Overall left ventricular systolic function is severely impair ed with, an EF between 20 - 25 %. The right ventricle is normal in size. The left atrial size is normal. The right atrial size is normal. Lumason used The aortic valve is trileaflet, and appears structurally normal. No aortic stenosis or regurgitation. The mitral valve leaflets are mildly thickened. Mild mitral annular calcification present. Modera [id number] mitral regurgitation is present. The tricuspid valve appears structurally normal. Mild tricuspid regurgitation present. There is m oderate pulmonary hypertension. The right ventricular systolic pressure, as measured by Doppler, is 61.02mmHg. The pulmonic valve was not well visualized. There is no pulmonic regurgitation present. The aortic root size is normal. IVC Not well visulized. There is a trivial pericardial effusion present. Large Pleural Effusion. CONCLUSIONS -------- 1. This was a technically difficult study with suboptimal views. 2. There is mild concentric left ventricular hypertrophy. 3. There is severe global hypokinesis of LV . 4. Overall left ventricular systolic function is severely impaired with, an EF between 20 - 25 %. 5. The left atrial size is normal. 6. The aortic valve is trileaflet, and appears structurally normal. No aortic stenosis or regurgitati on. 7. The mitral valve leaflets are mildly thickened. 8. Mild mitral annular calcification present. 9. [id number] mitral regurgitation is present. 10. Mild tricuspid regurgitation present. 11. There is moderate pulmonary hypertension. 12. There is a trivial pericardial effusion present. 13. Large Pleural Effusion. [employer] BUSTER: Lynnette Wood RDCS
--- NOTE | 2020-04-27 11:51 | P.PN ---
Subjective Progress Note Date: 04/27/20 CHIEF COMPLAINT: Chest pain HISTORY OF PRESENT ILLNESS: Patient is being followed in regards to his abdom inal pain and symptomatic cholelithiasis. Patient is in the ICU. Patient's laparoscopic Cholecystectomy is again put on hold due to his decompensation he is requiring 15 L of high flow oxygen. He is currently on a Lasix drip for pulmonary edema and dobutamine also added by critical care service. Patient did have severe abdominal pain this morning. There are concerns about ischemic colitis. Patient's abdomen is currently soft and nontender. Patient is on IV heparin. Afebrile. WBC 15.8 hemoglobin 10.5 platelets 1.5 sodium 142 potassium 3.9 creatinine 1.24 LFTs normal PHYSICAL EXAM: VITAL SIGNS: Reviewed. GENERAL: Well-developed in no acute distress. HEENT: No sclera icterus. Extraocular movements grossly intact. Moist buccal mucosa. Head is atraumatic, normocephalic. ABDOMEN: Soft. Nondistended. Nontender NEUROLOGIC: Alert and oriented. Cranial nerves II through XII grossly intact. ASSESSMENT: 1. Sepsis possibly due to cholecystitis and enteritis 2. Symptomatic cholelithiasis 3. Possible ischemic colitis 4. Hyponatremia resolved PLAN: -Laparoscopic cholecystectomy has been postponed until patient is medically stable -Continue ICU management and supportive care -Continue antibiotics -Patient is currently anticoagulated with IV heparin Physician Institution Director note has been reviewed by physician. Signing provider agrees with the documented findings, assessment, and plan of care. Objective - Vital Signs Vital signs: Vital Signs Temp 97.7 F 04/27/20 08:00 Pulse 98 04/27/20 11:00 Resp 17 04/27/20 11:00 BP 105/62 04/22/20 16:00 Pulse Ox 94 L 04/27/20 11:00 Intake & Output 04/26/20 04/27/20 04/27/20 18:59 06:59 18:59 Intake Total 725.3 313.585 350.9 Output Total 660 665 210 Balance 65.3 -351.415 140.9 Weight 71.9 kg 71.9 kg Intake: IV 725.3 240 325.6 DOBUTamine DRIP 500 mg In 15.3 25.6 Dextrose/Water 1 250ml. bag @ 5 MCG/KG/MIN 10.335 mls/hr IV .Q24H [facility] Rx#: [id number] NACL 160 240 100 Piperacillin-Tazobactam 3 300 100 .375 gm In Sodium Chloride 0.9% 100 ml @ 25 mls/hr IVPB Q8HR [facility] Rx# :[id number] Potassium Chloride 20 meq 50 In Water For Injection 1 100ml.bag @ 50 mls/hr IVPB Q2H [facility] Rx#: [id number] metroNIDAZOLE-NS PMX 500 200 100 mg In Saline 1 100ml.bag @ 100 mls/hr IVPB Q8HR [facility] Rx#:[id number] Intake, IV Titration 73.585 25.3 Amount DOBUTamine DRIP 500 mg In 10.3 Dextrose/Water 1 250ml. bag @ 5 MCG/KG/MIN 10.335 mls/hr IV .Q24H [facility] Rx#: [id number] Furosemide 100 mg In 15 Sodium Chloride 0.9% 90 ml @ 5 MG/HR 5 mls/hr IV .Q20H [facility] Rx#:[id number] Heparin Sod,Pork in 0.45% 73.585 NaCl 25,000 unit In 0.45 % NaCl 1 250ml.bag @ 12 UNITS/KG/HR 8.268 mls/hr IV .Q24H [facility] Rx#: [id number] Output: Urine 660 665 210 Other: Voiding Method Indwelling Catheter Indwelling Catheter ABP, PAP, CO, CI - Last Documented Arterial Blood Pressure 113/58 - Labs CBC & Chem 7: 04/27/20 06:00 04/27/20 06:00 Labs: Abnormal Lab Results - Last 24 Hours (Table) 04/26/20 04/27/20 04/27/20 Range/Units 20:37 06:00 06:00 WBC 15.8 H (3.8-10.6) k/uL RBC 4.02 L (4.30-5.90) m/uL Hgb 10.5 L (13.0-17.5) gm/dL Hct 34.2 L (39.0-53.0) % MCHC 30.7 L (31.0-37.0) g/dL RDW 21.8 H (11.5-15.5) % Plt Count 76 L (150-450) k/uL Neutrophils # 13.2 H (1.3-7.7) k/uL APTT 95.7 H 61.5 H (22.0-30.0) sec Chloride (98-107) mmol/L BUN (9-20) mg/dL Glucose (74-99) mg/dL Calcium (8.4-10.2) mg/dL Total Bilirubin (0.2-1.3) mg/dL Alkaline Phosphatase (38-126) U/L Total Protein (6.3-8.2) g/dL Albumin (3.5-5.0) g/dL 04/27/20 Range/Units 06:00 WBC (3.8-10.6) k/uL RBC (4.30-5.90) m/uL Hgb (13.0-17.5) gm/dL Hct (39.0-53.0) % MCHC (31.0-37.0) g/dL RDW (11.5-15.5) % Plt Count (150-450) k/uL Neutrophils # (1.3-7.7) k/uL APTT (22.0-30.0) sec Chloride 109 H (98-107) mmol/L BUN 35 H (9-20) mg/dL Glucose 184 H (74-99) mg/dL Calcium 8.2 L (8.4-10.2) mg/dL Total Bilirubin 4.0 H (0.2-1.3) mg/dL Alkaline Phosphatase 151 H (38-126) U/L Total Protein 5.0 L (6.3-8.2) g/dL Albumin 2.2 L (3.5-5.0) g/dL
--- NOTE | 2020-04-27 11:51 | PN ---
PROGRESS NOTE Gerber is a 70-year-old gentleman with history of mitral regurgitation, ischemic cardiomyopathy, ventricular tachycardia, atrial fibrillation, who is admitted to hospital with abdominal pain thought to be due to bowel ischemia versus cholecystitis. He was supposed to undergo cholecystectomy yesterday, but developed shortness of breath and went into pulmonary edema. This morning, his chest x-ray shows pulmonary edema. He has elevated JVD and his pressures are somewhat marginal. He is on Lasix drip with dobutamine. PHYSICAL EXAMINATION: On exam, heart rate is 100 beats per minute, blood pressure is 103/56, respiratory rate is 17. Chest exam reveals occasional rhonchi and crackles bilaterally. Heart exam reveals first and second heart sounds and a grade 3/6 systolic murmur at the apex. Abdomen shows mild tenderness. Examination of extremities reveals bilateral pitting edema. ASSESSMENT: 1. Acute exacerbation of chronic systolic heart failure with pulmonary edema. 2. Persistent atrial fibrillation with controlled ventricular rate. 3. Acute abdomen. 4. Coronary artery disease, status post angioplasty. 5. Ischemic cardiomyopathy. PLAN: Continue with the dobutamine and the Lasix at this time. The patient will go to surgery when he is more stable. MMODL / IJN: [id number] /
[2020-04-27] MEDS: HEPARIN SOD,PORK IN 0.45% NACL 25,000 UNIT in 0.45% NACL 1 250ML.BAG IV SCH (13:46)
[2020-04-27] MEDS: DOBUTamine DRIP 500 MG in DEXTROSE/WATER 1 250ML.BAG IV SCH (13:48)
--- NOTE | 2020-04-27 14:33 | PN ---
PROGRESS NOTE The patient is seen for followup for acute kidney injury and volume overload. He developed worsening volume overload yesterday with respiratory distress. The patient did receive IV Lasix, he responded. He did not respond that well to the diuretics. The patient's blood pressure was also low and he was started on midodrine yesterday. Systolic blood pressure has improved. Patient was started on dobutamine as well and this morning he is currently on a Lasix drip. Urine output now still remains low at about 40 to 30 mL an hour. PHYSICAL EXAMINATION: Patient is frail. He is not complaining of any significant chest pains or worsening shortness of breath. Blood pressure was 113/58, heart rate 98 per minute. He is afebrile. EXAMINATION OF THE HEART: S1, S2. EXAMINATION OF THE LUNGS: Bilateral breath sounds are heard. Abdomen is soft, nontender. Examination of lower extremities shows edema 2+ bilaterally. [employer] exam grossly intact. LABS: Labs show serum creatinine 1.2 today. BUN of 35. Sodium 142, potassium 3.9. Hemoglobin 10.5 g/dL. Calcium 8.2. Chest x-ray from today continues to show diffuse bilateral infiltrates. ASSESSMENT: 1. Acute kidney injury initially which had improved. Currently, the patient has acute kidney injury again which is mostly cardiorenal. He has been started on dobutamine drip and Lasix drip. His urine output remains low. I will increase the Lasix drip to 10 mg an hour. Continue with the midodrine. 2. Sepsis secondary to cholecystitis/enteritis, maintained on antibiotics. The patient was scheduled for cholecystectomy, however, surgery was held secondary to worsening cardiac and respiratory status. 3. Hyponatremia initially, improved post Samsca. 4. Congestive heart failure, acute on top of chronic systolic. 5. Cardiomyopathy, ejection fraction 35%. 6. Chronic atrial fibrillation with controlled ventricular response. PLAN: Continue with the dobutamine. Increase Lasix drip to 10 mg an hour. Monitor electrolytes. MMODL / IJN: [id number] /
--- NOTE | 2020-04-27 15:12 | P.PN ---
Subjective Progress Note Date: 04/27/20 Principal diagnosis: Abdomainal pain Seen in the ICU. He was scheduled for laparoscopic cholecystectomy yesterday and today, however has been put on hold due to his decompensation in his respiratory status. Remains on IV heparin. Afebrile. He denies any nausea or vomiting had abdominal pain but reports is better now. Objective - Vital Signs Vital signs: Vital Signs Temp 97.9 F 04/27/20 12:00 Pulse 113 H 04/27/20 14:00 Resp 20 04/27/20 14:00 BP 105/62 04/22/20 16:00 Pulse Ox 95 04/27/20 14:00 Intake & Output 04/26/20 04/27/20 04/27/20 18:59 06:59 18:59 Intake Total 725.3 313.585 680.835 Output Total 660 665 310 Balance 65.3 -351.415 370.835 Weight 71.9 kg 71.9 kg Intake: IV 725.3 240 385.6 DOBUTamine DRIP 500 mg In 15.3 25.6 Dextrose/Water 1 250ml. bag @ 5 MCG/KG/MIN 10.335 mls/hr IV .Q24H [facility] Rx#: [id number] NACL 160 240 160 Piperacillin-Tazobactam 3 300 100 .375 gm In Sodium Chloride 0.9% 100 ml @ 25 mls/hr IVPB Q8HR [facility] Rx# :[id number] Potassium Chloride 20 meq 50 In Water For Injection 1 100ml.bag @ 50 mls/hr IVPB Q2H [facility] Rx#: [id number] metroNIDAZOLE-NS PMX 500 200 100 mg In Saline 1 100ml.bag @ 100 mls/hr IVPB Q8HR [facility] Rx#:[id number] Intake, IV Titration 73.585 295.235 Amount DOBUTamine DRIP 500 mg In 164.887 Dextrose/Water 1 250ml. bag @ 5 MCG/KG/MIN 10.335 mls/hr IV .Q24H [facility] Rx#: [id number] Furosemide 100 mg In 61 Sodium Chloride 0.9% 90 ml @ 10 MG/HR 10 mls/hr IV .Q10H [facility] Rx#: [id number] Heparin Sod,Pork in 0.45% 73.585 69.348 NaCl 25,000 unit In 0.45 % NaCl 1 250ml.bag @ 12 UNITS/KG/HR 8.268 mls/hr IV .Q24H [facility] Rx#: [id number] Output: Urine 660 665 310 Other: Voiding Method Indwelling Catheter Indwelling Catheter Indwelling Catheter ABP, PAP, CO, CI - Last Documented Arterial Blood Pressure 116/57 - Exam General appearance: The patient is alert, oriented, in no acute distress. HET: Head is normocephalic and atraumatic. Conjunctiva pink. Sclera anicteric. Neck: Supple without lymphadenopathy. Abdomen: Soft, nontender, nondistended.No guarding or rigidity. Extremities: Normal skin color and turgor. No pedal edema Skin: Mildly jaundice Neurological: No focal deficits. Alert and oriented 3. - Labs CBC & Chem 7: 04/27/20 06:00 04/27/20 06:00 Labs: Abnormal Lab Results - Last 24 Hours (Table) 04/26/20 04/27/20 04/27/20 Range/Units 20:37 06:00 06:00 WBC 15.8 H (3.8-10.6) k/uL RBC 4.02 L (4.30-5.90) m/uL Hgb 10.5 L (13.0-17.5) gm/dL Hct 34.2 L (39.0-53.0) % MCHC 30.7 L (31.0-37.0) g/dL RDW 21.8 H (11.5-15.5) % Plt Count 76 L (150-450) k/uL Neutrophils # 13.2 H (1.3-7.7) k/uL APTT 95.7 H 61.5 H (22.0-30.0) sec Chloride (98-107) mmol/L BUN (9-20) mg/dL Glucose (74-99) mg/dL Calcium (8.4-10.2) mg/dL Total Bilirubin (0.2-1.3) mg/dL Alkaline Phosphatase (38-126) U/L Total Protein (6.3-8.2) g/dL Albumin (3.5-5.0) g/dL 04/27/20 Range/Units 06:00 WBC (3.8-10.6) k/uL RBC (4.30-5.90) m/uL Hgb (13.0-17.5) gm/dL Hct (39.0-53.0) % MCHC (31.0-37.0) g/dL RDW (11.5-15.5) % Plt Count (150-450) k/uL Neutrophils # (1.3-7.7) k/uL APTT (22.0-30.0) sec Chloride 109 H (98-107) mmol/L BUN 35 H (9-20) mg/dL Glucose 184 H (74-99) mg/dL Calcium 8.2 L (8.4-10.2) mg/dL Total Bilirubin 4.0 H (0.2-1.3) mg/dL Alkaline Phosphatase 151 H (38-126) U/L Total Protein 5.0 L (6.3-8.2) g/dL Albumin 2.2 L (3.5-5.0) g/dL Assessment and Plan (1) Cholecystitis Narrative/Plan: 70-year-old male with multiple medical comorbidities presenting with chest and abdominal pain. Patient has been receiving treatment in the intensive care unit for possible septicemia related to suspected cholecystitis. Enteritis also noted on prior imaging with computed tomography scan of the abdomen yesterday showing bibasilar atelectasis, improving enteritis of the duodenum and jejunum and recommendation to correlate for cystitis. Patient previously seen on prior hospitalization for elevated liver enzymes. Currently on broad-spectrum antibio tic therapy. Cholecystectomy postponed secondary to respiratory decompensation. Current Visit: Yes Status: Acute Code(s): K81.9 - CHOLECYSTITIS, UNSPECIFIED SNOMED Code(s): 91181494 (2) Enteritis Current Visit: Yes Status: Acute Code(s): K52.9 - NONINFECTIVE GASTROENTERITIS AND COLITIS, UNSPECIFIED SNOMED Code(s): 24687410 (3) Abdominal pain Current Visit: No Status: Acute Code(s): R10.9 - UNSPECIFIED ABDOMINAL PAIN SNOMED Code(s): 94982764 (4) Sludge in gallbladder Current Visit: Yes Status: Acute Code(s): K82.8 - OTHER SPECIFIED DISEASES OF GALLBLADDER SNOMED Code(s): 13624811 Plan: 1. Supportive care 2. Continue ICU management 3. Continue antibiotic therapy 4. Prior serologic workup for elevated liver enzymes ordered and reviewed and negative. Multiple imaging studies have been performed with no evidence of ductal dilation to suggest choledocholithiasis 5. Surgical service is following patient for management of cholecystitis Thank you for this consultation we will continue to follow Dr. Haque I agree with the dictator's note, documented as a scribe by Yvrose Duke.
--- NOTE | 2020-04-27 20:09 | P.PN ---
Progress Note - Text Progress Note Date: 04/27/20 Presenting complaint Chest pain: Interval course: Patient was recently in the hospital with ischemic colitis with resultant hypotension lactic acidosis ischemic hepatitis, acute CHF exacerbation was admitted to the ICU. Now presented with chest pain. Found to be atypical. Negative troponins. Ultrasound of the abdomen showed gallbladder sludge. Suspicion for acute cholecystitis. Followed by surgery. No history of carotid artery disease. Known EF of 30-35%. Also atrial fibrillation, hyperlipidemia, AICD. April 20-surgery was postponed for a sodium of 127 by anesthesia. Patient was given salt tablet fluid restriction and held of free fluid. Following day sodium went to 128. Nephrology consulted. Ordered Samsca. On April 22 patient had increasing abdominal pain. Worsening renal function. Lactic acidosis. Moved to ICU. Started IV Zosyn. IV fluids. Bicarbonate drip. Hypothermic. Placed on dobutamine. Today-ICU: On dobutamine drip. Lasix 5 mg and hour. IV heparin. No abdominal pain. On ice chips. Review of systems: Was done for constitutional, cardiovascular, GI, pulmonary. relevant finding as above Active Medications Al Hydroxide/Mg Hydroxide (Mag Hydrox/Al Hydrox/Simeth 30 Ml Cup) 30 ml PO Q4HR PRN PRN Reason: GI Upset Last Admin: 04/18/20 00:31 Dose: 30 ml Documented by: Bisacodyl (Bisacodyl 10 Mg Supp) 10 mg RECTAL HS [facility] Last Admin: 04/26/20 20:19 Dose: 10 mg Documented by: Heparin Sodium (Porcine) (Heparin Sodium,Porcine 5,000 Unit/Ml 1 Ml Vial) 0 unit IV PER PROTOCOL PRN; Protocol PRN Reason: Low PTT Heparin Sodium (Porcine) (Heparin Sodium,Porcine 5,000 Unit/Ml 1 Ml Vial) 0 unit IV PER PROTOCOL PRN; Protocol PRN Reason: Low PTT Hydromorphone HCl (Hydromorphone 1 Mg/Ml 1 Ml Syringe) 1 mg IVP Q3HR PRN PRN Reason: Pain Last Admin: 04/27/20 07:13 Dose: 1 mg Documented by: Hydromorphone HCl (Hydromorphone 0.5 Mg/0.5 Ml Syringe) 0.5 mg IVP Q5M PRN PRN Reason: Pain Control Stop: 04/27/20 23:00 Piperacillin Sod/Tazobactam (Sod 3.375 gm/ Sodium Chloride) 100 mls @ 25 mls/hr IVPB Q8HR [facility] Last Admin: 04/27/20 16:16 Dose: 25 mls/hr Documented by: Metronidazole 500 mg/ IV (Solution) 100 mls @ 100 mls/hr IVPB Q8HR [facility] Last Admin: 04/27/20 16:15 Dose: 100 mls/hr Documented by: Dobutamine HCl/Dextrose 500 mg (/ IV Solution) 250 mls @ 10.335 mls/hr IV .Q24H [facility] Last Admin: 04/27/20 13:48 Dose: 2.5 mcg/kg/min, 5.168 mls/hr Documented by: Heparin Sodium/Sodium Chloride (25,000 unit/ Sodium Chloride) 250 mls @ 8.268 mls/hr IV .Q24H [facility]; Protocol Last Admin: 04/27/20 13:46 Dose: 9 units/kg/hr, 6.201 mls/hr Documented by: Furosemide 100 mg/ Sodium (Chloride) 100 mls @ 10 mls/hr IV .Q10H [facility] Last Admin: 04/27/20 16:22 Dose: 10 mg/hr, 10 mls/hr Documented by: Sodium Chloride (Saline 0.9%) 500 mls @ 20 mls/hr IV .Q24H [facility] Last Admin: 04/27/20 08:05 Dose: 20 mls/hr Documented by: Lidocaine HCl (Lidocaine 1% (10mg/Ml) For Iv Start) 0.1 ml INTRADERMA PER PROTOCOL PRN PRN Reason: IV Start Metoprolol Succinate (Metoprolol Succinate (Er) 25 Mg Tab.Er.24h) 25 mg PO DAILY [facility] Last Admin: 04/27/20 09:03 Dose: 25 mg Documented by: Midodrine (Midodrine 5 Mg Tab) 5 mg PO AC-TID [facility] Last Admin: 04/27/20 17:54 Dose: 5 mg Documented by: Miscellaneous Information (Potassium Replacement Protocol 1 Each Misc) 1 each MISCELLANE DAILY PRN; Protocol PRN Reason: Per Protocol Nitroglycerin (Nitroglycerin Sl Tabs 0.4 Mg Tab) 0.4 mg SUBLINGUAL Q5M PRN PRN Reason: Chest Pain Last Admin: 04/17/20 20:06 Dose: 0.4 mg Documented by: Ondansetron HCl (Ondansetron 4 Mg/2 Ml Vial) 4 mg IVP Q6HR PRN PRN Reason: Nausea And Vomiting Last Admin: 04/24/20 10:01 Dose: 4 mg Documented by: Pantoprazole Sodium (Pantoprazole 40 Mg/10 Ml Vial) 40 mg IV DAILY [facility] Last Admin: 04/27/20 09:03 Dose: 40 mg Documented by: On examination: VITAL SIGNS: 97.9, 111, 15, 120/63, 80% on 15 L high flow GENERAL APPEARANCE: Reclining in bed, awake, tired HEENT: Normal external appearance of nose and ear. Oral cavity normal EYES: Pupils equal. Conjunctiva normal. NECK: JVD not raised. Mass not palpable. RESPIRATORY: Respiratory effort normal. Lungs clear to auscultation. CARDIOVASCULAR: Heart sounds irregular. No edema. ABDOMEN: Soft. Liver and spleen not palpable. No abdominal tenderness, no obvious guarding rigidity. No mass palpable. PSYCHIATRY: Alert and oriented x3. Mood and affect anxious. Investigations: April 27: White count 15.8 hemoglobin 10.5 platelets 76 potassium 3.9 creatinine 1.24 AST 42 ALT 43 albumin 2.2 Chest [id number] April 26: White count 8.7 hemoglobin 11 platelets 97 potassium 3.5 creatinine 1.16 AST 62 ALT 56 Chest x-ray film personally reviewed by me-bilateral possible pulmonary edema. Interstitial infiltrate cannot be ruled out April 25: White count 21.4 hemoglobin 11.5 platelets 121 potassium 3.6 bun 30 creatinine 1.44 AST 125 ALT 76 April 24: White count 8.6 hemoglobin 11 platelets 138 INR 1.6 potassium 2.9 bun 40 creatinine 1.93 AST 224 ALT 104 April 23: White count 25 hemoglobin 11 increased neutrophils INR 1.9 potassium 4.2 bicarb 29 bun 50 creatinine 2.45 AST 356 ALT 128 Computed tomography scan of the abdomen-persistent but improved wall thickening involving the duodenum and proximal jejunum. April 22: White count 31.7 hemoglobin 11.7 potassium 5.7 bun 44 creatinine 2.64 bicarb 11 lactic acid 12.6 AST 544 ALT 144 Computed tomography scan abdomen and pelvis-mild to moderate acute enteritis involving the duodenum and proximal jejunum April 21: Sodium 128 bun 29 creatinine 1.58. Serum osmolality 282 White count 8.6 hemoglobin 12.7 platelets 298 sodium 127 potassium 4.7 creatinine 1.26 Coronavirus [PCR]-not detected EKG tracing-left bundle-branch block pattern Assessment: -Acute enteritis involving the duodenum and proximal jejunum. Probably hypotensive episode/etiology. With hydration that seems to have improved. -Acute metabolic acidosis from worsening renal -corrected -Acute kidney injury, ATN-some improvement -Acute ischemic improved -Acute lactic acidosis likely combination of type I-type improved -Hypokalemia-corrected -Acute cholecystitis, diagnoses now in -question . On IV Zosyn and IV Flagyl. -Hyponatremia, suspect hypervolemia from CHF. Normal osmolar. Improved -Chest pain-felt to be noncardiac -Coronary artery disease with cardiac cath in February 2020 revealing chronically occluded RCA extensive [id number] collaterals etc. -Acute on Chronic congestive heart failure from systolic dysfunction EF 25-30% started on Lasix drip -Paroxysmal atrial fibrillation chronically on eliquis. Currently on IV heparin -AICD for ventricular tachycardia Plan: In the ICU. Continue IV Flagyl IV Zosyn. , IV heparin. , on dobutamine. , IV Lasix drip..
[2020-04-27] MEDS: bisacodyL 10 MG SUPP RECTAL SCH (21:00)
--- NOTE | 2020-04-27 22:21 | PN ---
PROGRESS NOTE DATE OF SERVICE: 04/27/2020 REASON FOR FOLLOWUP: Cholecystitis and enteritis. INTERVAL HISTORY: The patient is currently afebrile. He seems to be breathing slightly comfortably. Denies having any chest pain. Occasional cough. No abdominal pain or diarrhea. PHYSICAL EXAMINATION: Blood pressure is 123/64 with a pulse of 105, temperature 97.5. He is 97% on BiPAP. General description is an elderly male lying in bed in no distress. RESPIRATORY SYSTEM: Unlabored breathing with decreased intensity of breath sounds. No wheeze. HEART: S1, S2. Regular rate and rhythm. ABDOMEN: Soft. No tenderness. LABS: Hemoglobin is 10.5, white count 15.8, BUN of 35, creatinine 1.24. DIAGNOSTIC IMPRESSION AND PLAN: Patient with acute cholecystitis and a question of enteritis in this patient currently covered with Zosyn. White count showing a downward trend. To continue and monitor his clinical course closely. Continue with supportive care. MMODL / IJN: [id number] /
[2020-04-28] MEDS: FUROSEMIDE 100 MG in SODIUM CHLORIDE 0.9% 90 ML IV SCH ×3 (01:03→18:14)
[2020-04-28 04:23] LABS: Albumin 2.4 g/dL (3.5-5.0); Calcium 8.1 mg/dL (8.4-10.2); Potassium 3.2 mmol/L (3.5-5.1); Total Bilirubin 4.1 mg/dL (0.2-1.3); Total Protein 5.8 g/dL (6.3-8.2)
[2020-04-28 04:51] LABS: Anisocytosis Moderate; HCT 34.5 % (39.0-53.0); HGB 10.8 gm/dL (13.0-17.5); Hypochromasia Marked; MCH 26.6 pg (25.0-35.0); MCHC 31.4 g/dL (31.0-37.0); MCV 84.8 fL (80.0-100.0); Mean Platelet Volume 12.4; Microcytosis Slight; Poikilocytosis Slight; RBC 4.07 m/uL (4.30-5.90); RDW 21.8 % (11.5-15.5); WBC 20.3 k/uL (3.8-10.6)
[2020-04-28 04:54] LABS: Platelet Count 61 k/uL (150-450)
[2020-04-28 05:44] LABS: Anisocytosis (M) Present; Crenated RBC Present; Lymphocytes # (M) 0.61 k/uL (1.0-4.8); Monocytes # (M) 1.83 k/uL (0-1.0); Neutrophils # (M) 17.86 k/uL (1.3-7.7); Neutrophils % (M) 88 %; Nucleated Red Blood Cells 0 /100 WBC (0-0); Poikilocytosis (M) Present; Target Cells Present; Total Cells Counted 100
[2020-04-28 05:45] LABS: Large Platelets Present
[2020-04-28] MEDS: POTASSIUM CHLORIDE 20 MEQ in WATER FOR INJECTION 1 100ML.BAG IVPB SCH ×2 (06:08→07:09)
[2020-04-28] MEDS: MIDODRINE 5 MG TAB PO SCH ×3 (07:09→17:52)
[2020-04-28] MEDS: HYDROmorphone 1 MG/ML 1 ML SYRINGE IVP PRN (08:02)
[2020-04-28] MEDS: PIPERACILLIN-TAZOBACTAM 3.375 GM in SODIUM CHLORIDE 0.9% 100 ML IVPB SCH (08:14)
[2020-04-28] MEDS: PANTOPRAZOLE 40 MG/10 ML VIAL IV SCH (08:14)
[2020-04-28] MEDS: SODIUM CHLORIDE 0.9% 500 ML 500 ML IV SCH (08:28)
--- NOTE | 2020-04-28 08:34 | XR ---
EXAMINATION TYPE: XR chest 1V DATE OF EXAM: 04/28/2020 COMPARISON: Chest x-ray 04/27/2020 HISTORY: Pneumonia TECHNIQUE: Single frontal view of the chest is obtained. FINDINGS: Findings are similar to prior exam. IMPRESSION: Correlate for pneumonia, edema, possible pleural effusions.
[2020-04-28] MEDS: metroNIDAZOLE-NS PMX 500 MG in SALINE 1 100ML.BAG IVPB SCH ×3 (09:25→23:49)
[2020-04-28] MEDS: METOPROLOL SUCCINATE (ER) 25 MG TAB.ER.24H PO SCH (09:26)
--- NOTE | 2020-04-28 10:27 | P.PN ---
Subjective Progress Note Date: 04/28/20 This is a 70-year-old male who presented to the emergency department on April 17, at 1020 in the morning. The patient's complaints include primarily chest and abdominal pain. It began the night prior about 12 hours earlier. It's sharp constant consistent pain in the lower right chest area and right upper abdominal area. He denied any nausea, vomiting, or diarrhea. The patient was recently inpatient for pulmonary edema and ascites. The patient was evaluated and discovered to have acute cholecystitis. The patient was to have surgery but the sodium was low and so the surgery was canceled. Then, the patient was hypotensive, and hypothermic. In addition, his lactic acid had risen to above 12. For that reason, the patient was admitted to the intensive care unit for further evaluation and management. The patient's white count jumped up to 31.7, hemoglobin 11.7, hematocrit 37.5, and platelet count was normal. Sodium was 130, potassium 5.7, chloride 73, CO2 11, anion gap was 26, a nd BUN and creatinine were 44 and 2.64. These labs are consistent with a anion gap metabolic acidosis, secondary to renal failure and lactic acidemia. The patient's AST was 544, ALT 144, and alkaline phosphatase was 205. Bilirubin was elevated at 3.0. Chest x-ray today showed bilateral areas of atelectasis, pneumonia, edema, and effusions. CT of the abdomen and pelvis revealed evidence of moderate acute enteritis involving the duodenum and proximal jejunum, bilateral lower pleural effusions, and associated compressive atelectasis. The patient was only started on antibiotics. He was given left internal jugular triple-lumen catheter, and a left radial art line. His current antibiotic is Zosyn and flagyl. An NG tube in place. He continued to have abdominal pain. Tends to localize in the right upper quadrant. It is diffuse as well though. On today's evaluation of 04/25/2020, the patient is being seen for a follow-up. He is having mild abdominal pain which is improved compared to yesterday. No fever. White cell count is at 21.4. Hemoglobin is at 11.5. He has 87% neutr ophilia. On his electrolytes, sodium level is at 146 with a serum bicarb of 31 and a creatinine of 1.4 which is improved compared to yesterday when his creatinine was at 1.9. His bilirubin is at 4.6 with an AST of 125 and ALT of 76 both liver function tests are improving and the bilirubin is essentially slightly higher compared to yesterday. His alkaline phosphatase is stable at 183. His lactic acidosis high as 12 and is down to 1.4. The patient remains on antibiotic coverage utilizing a combination of Zosyn and Flagyl. He has history of chronic atrial fibrillation current rhythm is sinus and the patient is not receiving any form of anticoagulation for now. On 04/26/2019 100 mL the patient for the follow-up is awake and alert. The plan is to proceed with cholecystectomy today. Terms of his abdomen, the patient's abdomen is nontender and is soft and he has positive bowel sounds. He is not having any nausea or emesis. The patient is scheduled to undergo a cholecystectomy noontime today. He is currently nothing by mouth. He remains in atrial fibrillation. He was given IV heparin yesterday and heparin and to be discontinued as the patient's been reviewed was coming back supratherapeutic. Currently is off anticoagulation. My plan is to keep him off anticoagulation for the cholecystectomy and ultimately the patient will be switched to oral anticoagulation following his surgery. He remains on a combination of Zosyn and Flagyl. No bowel movement activity yet. No abdominal distention. No fever. No chills. Urine output was slightly diminished earlier this morning and the patient was given 1 L of normal saline. White cell count is down to 19.7 with a hemoglobin of 11. These electrodes are still pending for now. No altered mentation. No signs of any decompensated heart failure On 04/27/2019, I'm seeing the patient for a follow-up. Unfortunately, since yesterday afternoon, that it been some decompensation the patient's pulmonary status. The patient became progressively more hypoxic. He was placed on oxygen at 15 L high flow. A repeat chest x-ray was done and the patient was an obvious pulmonary edema. At that point, he was given Lasix. His initial response was minimal. Subsequently he was started on dobutamine at 2.5 g per KG per minute. He started making better urine output. He was given a total of 60 mg IV push Lasix and later on he was given additional 40 mg IV push. Current urine output is in order of 50 mL an hour. He is started on oxygen at 15 L. Chest x-ray continues to be abnormal with pulmonary edema and the patient's crackling on both sides of his lungs. He has positive JVDs. His cardiac rhythm is irregular consistent with atrial fibrillation with a bundle-branch block pattern. He remains on IV heparin. Earlier this morning, he started again to have diffuse abdominal pain. He was maintained on a combination of Zosyn and Flagyl. No diarrhea. No abdominal distention. He was given Dilaudid and his pain is under better control for now. He has adequate pulses in lower extremities bilaterally although they're diminished. He is lethargic but arousable. He with follows some simple commands. His family was at the bedside yesterday and we had a lengthy discussion about his status and prognosis which is obviously poor. The patient was scheduled to undergo a cholecystectomy. However, based on his li mited and borderline condition, the surgery has been postponed. For now, the white cell count is down to 15.8 from 19.7. Hemoglobin is at 10.5 mile his platelets have dropped down to 76, his. He is therapeutic at 61, his BUN is at 35 with a creatinine of 1.2, glucose is 184, calcium level is at 8.2, AST and ALP are both within normal limits and alkaline phosphatase is at 151 with an albumin level of 2.2. He is afebrile for now. 04/28/2020 I'm seeing the patient for a follow-up. The patient's has been transitioned to a BiPAP and currently is on a BiPAP pressure of 12/6 with an FiO2 of 60%. His chest x-ray showing diffuse bilateral pulmonary infiltrates consistent with pulmonary edema. Possibility of noncardiogenic pulmonary edema cannot be completely excluded. He has a right-sided pleural effusion. No aspiration. He is still on IV Zosyn and Flagyl combination. I started the dmitry eaton on dobutamine yesterday and the dose has been increased up to 5 mg/kg/m. I also started him on Lasix 10 mg an hour. He is making better urine output and the neck fluid balance over the past 24 hours has been aggravated to 86 mL. His weight is up to 71 kg. He is awake. He communicates. He is lethargic. He is on IV heparin. He is in a sinus rhythm with a bundle-branch block pattern. He is on IV heparin. Platelet counts have dropped down to 61. No signs of bleeding. White cell count is up to 20.3. Renal function is also abnormal with a creatinine of 1.3, although comparable to yesterday. Serum bicarb is 28. Potassium is at 3.2. The patient is not having any significant abdominal pain for now. He remains nothing by mouth. He remains on a combination of Zosyn and Flagyl. No diarrhea. No significant abdominal distention. His taken Dilaudid for pain control. Objective - Vital Signs Vital signs: Vital Signs Temp 97.5 F L 04/28/20 08:00 Pulse 106 H 04/28/20 10:00 Resp 17 04/28/20 10:00 BP 105/62 04/22/20 16:00 Pulse Ox 97 04/28/20 10:00 Intake & Output 04/27/20 04/28/20 04/28/20 18:59 06:59 18:59 Intake Total 1123.368 732.835 594.9 Output Total 450 1335 580 Balance 673.368 -602.165 14.9 Weight 71.9 kg 71.7 kg Intake: IV 665.6 520 280 DOBUTamine DRIP 500 mg In 25.6 Dextrose/Water 1 250ml. bag @ 5 MCG/KG/MIN 10.335 mls/hr IV .Q24H [facility] Rx#: [id number] NACL 240 20 Piperacillin-Tazobactam 3 200 100 100 .375 gm In Sodium Chloride 0.9% 100 ml @ 25 mls/hr IVPB Q8HR [facility] Rx# :[id number] Potassium Chloride 20 meq 100 In Water For Injection 1 100ml.bag @ 50 mls/hr IVPB Q2H [facility] Rx#: [id number] Sodium Chloride 0.9% 500 200 80 ml 500 ml @ 20 mls/hr IV .Q24H [facility] Rx#:[id number] metroNIDAZOLE-NS PMX 500 200 100 100 mg In Saline 1 100ml.bag @ 100 mls/hr IVPB Q8HR [facility] Rx#:[id number] Intake, IV Titration 357.768 212.835 214.9 Amount DOBUTamine DRIP 500 mg In 206.087 10.3 30.9 Dextrose/Water 1 250ml. bag @ 5 MCG/KG/MIN 10.335 mls/hr IV .Q24H [facility] Rx#: [id number] Furosemide 100 mg In 82.333 86.833 84 Sodium Chloride 0.9% 90 ml @ 10 MG/HR 10 mls/hr IV .Q10H [facility] Rx#: [id number] Heparin Sod,Pork in 0.45% 69.348 95.702 NaCl 25,000 unit In 0.45 % NaCl 1 250ml.bag @ 12 UNITS/KG/HR 8.268 mls/hr IV .Q24H [facility] Rx#: [id number] Potassium Chloride 20 meq 100 In Water For Injection 1 100ml.bag @ 50 mls/hr IVPB Q2H [facility] Rx#: [id number] Sodium Chloride 0.9% 500 20 ml 500 ml @ 20 mls/hr IV .Q24H [facility] Rx#:[id number] Oral 100 100 Output: Urine 450 1335 580 Other: Voiding Method Indwelling Catheter Indwelling Catheter Indwelling Catheter ABP, PAP, CO, CI - Last Documented Arterial Blood Pressure 109/58 - Exam Moderately severe abdominal pain, oriented 3. The patient is lying supine, the patient currently is on a BiPAP at a pressure of 12/6 cm of water and FiO2 of 60% L. she is lethargic. He is following some commands. He is arousable and able to communicate and he seems to be appropriate at this point in time. Head exam was generally normal. There was no scleral icterus or corneal arcus. Mucous membranes were moist. Neck was supple and without jugular venous distension, thyromegaly, or carotid bruits. Carotids were easily palpable bilaterally. There was no adenopathy. Cardiovascular examination reveals regular rhythm rate. S1-S2 normal. No S3 or S4. No discernible murmur noted. Lungs reveal bilateral rhonchi and lower lobe crackles. Breath sounds equal bilaterally. The patient does have bilateral crackles. Abdominal exam revealed normal bowel sounds. The abdomen was soft, non-tender, and without masses, organomegaly, or appreciable enlargement of the abdominal aorta. She was having diffuse abdominal tenderness earlier and he was given Dilaudid and currently he seems to be nontender on my physical examination. Bowel sounds are sluggish. Extremities are intact. No cyanosis clubbing or edema. Diminished pulses in the lower extremities bilaterally. Extremities are still warm. Skin is without rash or lesion. Neurologic examination is brief but nonfocal. - Labs CBC & Chem 7: 04/28/20 04:00 04/28/20 04:00 Labs: Abnormal Lab Results - Last 24 Hours (Table) 04/28/20 04/28/20 04/28/20 Range/Units 04:00 04:00 04:00 WBC 20.3 H (3.8-10.6) k/uL RBC 4.07 L (4.30-5.90) m/uL Hgb 10.8 L (13.0-17.5) gm/dL Hct 34.5 L (39.0-53.0) % RDW 21.8 H (11.5-15.5) % Plt Count 61 L (150-450) k/uL Neutrophils # (Manual) 17.86 H (1.3-7.7) k/uL Lymphocytes # (Manual) 0.61 L (1.0-4.8) k/uL Monocytes # (Manual) 1.83 H (0-1.0) k/uL APTT 72.4 H (22.0-30.0) sec Potassium 3.2 L (3.5-5.1) mmol/L BUN 43 H (9-20) mg/dL Creatinine 1.32 H (0.66-1.25) mg/dL Glucose 166 H (74-99) mg/dL Calcium 8.1 L (8.4-10.2) mg/dL Total Bilirubin 4.1 H (0.2-1.3) mg/dL Alkaline Phosphatase 159 H (38-126) U/L Total Protein 5.8 L (6.3-8.2) g/dL Albumin 2.4 L (3.5-5.0) g/dL Assessment and Plan Plan: 1 Sepsis, secondary to suspected acute cholecystitis/enteritis. The patient has ischemic changes involving the duodenum and jejunum in addition to biliary sludge the patient presented with abdominal pain, diffuse in addition to severe lactic acidosis. Highly suspicious that this was a mesenteric ischemia. Note that the patient was seen by vascular surgery and the patient was also seen by general surgery. The patient was resuscitated. The patient was given fluids and antibiotics and the patient's lactic acid level improved and his abdominal pain is subsided. Acute kidney injury is improving and the liver functions is also improving. He remains nothing by mouth. The patient has undergone a visceral angiogram showed mild disease of the celiac artery and no significant stenosis of the SMA, I am a and there was no clear evidence indicating PAD of the mesenteric arteries he had still, the possibility of ischemic colitis cannot be ruled out special ed his underlying severe cardiomyopathy. On 04/27/2020, the patient was having some abdominal pain earlier that was rather diffuse consistent with ischemic colitis. He remains on the same antibiotic coverage. He was given Dilaudid and the pain is subsided. His white cell count is up to 15. No abdominal distention. His abdomen is not firm at this point in time. Nevertheless, there is concern of ongoing ischemic bowel. The cholecystectomy still on standby for the patient is further stabilized knowing that his respiratory status had decompensated over the past 24 hours. On 04/28/2020, no plans for cholecystectomy and the patient is still being covered with antibiotics and no clear indication for any 2 . acute hypoxic respiratory failure terminal worsening of the pulmonary status and the patient is currently on a BiPAP at a pressure of 12/6 cm of water with an FiO2 of 60%. Chest x-ray showing diffuse breath and pulmonary infiltrates. Consider cardiogenic versus noncardiogenic pulmonary edema/ARDS. The patient's is currently on a combination of dobutamine drip at 5 mg/kg per minute in addition to Lasix drip at 10 mg an hour. He is BiPAP dependent.He failed high flow oxygen. 3 Possible small bowel ischemic/inflammatory changes. 4 acute kidney injury, improving , creatinine is down to 1.3 renal function continues to improve 5 acute Lactic acidemia, much improved. 6 Hyponatremia, improved, post Semsca treatment, sodium level has normalized 7 History of chronic atrial fibrillation. The patient is currently IV heparin 8 History of CAD, status post stent placement. Coronary artery disease with chronically occluded RCA and collaterals in addition to moderate to moderate disease involving LAD and circumflex and this is based on a cardiac catheterization from the year 1999 9 History of hyperlipidemia. 10 History of essential hypertension. 11 History of myocardial infarction. 12 chronic atrial fibrillation, slightly tachycardic this morning with a wide bundle branch block pattern 13 CHF with an EF 35% 14 History of previous cardiac ablation and AICD placement. The patient has history of V. tach and the patient undergone previous ablation 15 PAD without significant mesenteric artery occlusive disease 16 Hypothermia, and hypotension, secondary to suspected sepsis, improved. 17 thrombocytopenia Plan: IV KVO Discontinue the IV heparin Lactic acid levels remain low Change the patient to IV Merrem and Flagyl and discontinue the Zosyn Hold on any surgical procedures for now such as laparoscopy cholecystectomy Continue BiPAP Check pro calcitonin level, BNP level, lactic acid level and repeat blood cultures Check a CVP Continue the dobutamine at 5mcg/kg per minute. May consider increasing it up to 5 g. He'll be also started on Lasix drip at 10 mg an hour. Monitor oxygenation. Monitor urine output. Repeat chest x-ray in a.m. Utilizes BiPAP on and off during the day to optimize his respiratory status at a pressure of 12/6 cm of water and FiO2 will be regulated accordingly. On physical platelet count IV Solu-Medrol for possible acute lung injury at a dose of 40 mg every 8 hours Keep the patient ICU for now. We'll continue to follow I will discuss this case with the rest of the consultants including vascular surgery and general surgery and cardiology. Critically care evaluation Time with Patient: Greater than 30 Time with Patient: Greater than 30
--- NOTE | 2020-04-28 10:59 | P.PN ---
Subjective Progress Note Date: 04/28/20 CHIEF COMPLAINT: Chest pain HISTORY OF PRESENT ILLNESS: Patient is being followed in regards to his abdom inal pain and cholecystitis. Patient is in the ICU. Patient's laparoscopic cholecystectomy remains on hold due to his respiratory decompensation. He is now requiring BiPAP. He remains on a Lasix drip and dobutamine. Patient has had slight improvement in urine output since yesterday. Afebrile. Heart rate 106. WBC increased from 15.8-20.3 hemoglobin 10.8 platelets 61 sodium 143 potassium 3.2 and being replaced BUN 43 creatinine up at 1.3 to total bili 4.1 AST and ALT normal alk phos 159. Per nurse patient was complaining of pain earlier she had a half a milligram of Dilaudid. Patient appears comfortable in no pain at this time. Patient currently nothing by mouth Chest x-ray report states correlate for pneumonia, edema, possible pleural effusion Echo EF 20-25% PHYSICAL EXAM: VITAL SIGNS: Reviewed. GENERAL: Well-developed in no acute distress. HEENT: No sclera icterus. Extraocular movements grossly intact. Moist buccal mucosa. Head is atraumatic, normocephalic. ABDOMEN: Soft. Nondistended. Minimal tenderness with palpation of the right upper quadrant NEUROLOGIC: Alert and oriented. Cranial nerves II through XII grossly intact. ASSESSMENT: 1. Sepsis possibly due to acute cholecystitis and enteritis 2. Possible ischemic colitis 3. Hyponatremia resolved 4. Hypokalemia being replaced 5. Acute hypoxic respiratory failure PLAN: -Start TPN for nutrition support -Laparoscopic cholecystectomy has been postponed until patient is medically stable -Continue ICU management and supportive care -Continue antibiotics Physician Geriatric Nurse note has been reviewed by physician. Signing provider agrees with the documented findings, assessment, and plan of care. Objective - Vital Signs Vital signs: Vital Signs Temp 97.5 F L 04/28/20 08:00 Pulse 106 H 04/28/20 10:00 Resp 17 04/28/20 10:00 BP 105/62 04/22/20 16:00 Pulse Ox 97 04/28/20 10:00 Intake & Output 04/27/20 04/28/20 04/28/20 18:59 06:59 18:59 Intake Total 1123.368 732.835 594.9 Output Total 450 1335 580 Balance 673.368 -602.165 14.9 Weight 71.9 kg 71.7 kg 71.7 kg Intake: IV 665.6 520 280 DOBUTamine DRIP 500 mg In 25.6 Dextrose/Water 1 250ml. bag @ 5 MCG/KG/MIN 10.335 mls/hr IV .Q24H [facility] Rx#: [id number] NACL 240 20 Piperacillin-Tazobactam 3 200 100 100 .375 gm In Sodium Chloride 0.9% 100 ml @ 25 mls/hr IVPB Q8HR [facility] Rx# :[id number] Potassium Chloride 20 meq 100 In Water For Injection 1 100ml.bag @ 50 mls/hr IVPB Q2H [facility] Rx#: [id number] Sodium Chloride 0.9% 500 200 80 ml 500 ml @ 20 mls/hr IV .Q24H [facility] Rx#:[id number] metroNIDAZOLE-NS PMX 500 200 100 100 mg In Saline 1 100ml.bag @ 100 mls/hr IVPB Q8HR [facility] Rx#:[id number] Intake, IV Titration 357.768 212.835 214.9 Amount DOBUTamine DRIP 500 mg In 206.087 10.3 30.9 Dextrose/Water 1 250ml. bag @ 5 MCG/KG/MIN 10.335 mls/hr IV .Q24H [facility] Rx#: [id number] Furosemide 100 mg In 82.333 86.833 84 Sodium Chloride 0.9% 90 ml @ 10 MG/HR 10 mls/hr IV .Q10H [facility] Rx#: [id number] Heparin Sod,Pork in 0.45% 69.348 95.702 NaCl 25,000 unit In 0.45 % NaCl 1 250ml.bag @ 12 UNITS/KG/HR 8.268 mls/hr IV .Q24H [facility] Rx#: [id number] Potassium Chloride 20 meq 100 In Water For Injection 1 100ml.bag @ 50 mls/hr IVPB Q2H [facility] Rx#: [id number] Sodium Chloride 0.9% 500 20 ml 500 ml @ 20 mls/hr IV .Q24H [facility] Rx#:[id number] Oral 100 100 Output: Urine 450 1335 580 Other: Voiding Method Indwelling Catheter Indwelling Catheter Indwelling Catheter ABP, PAP, CO, CI - Last Documented Arterial Blood Pressure 109/58 - Labs CBC & Chem 7: 04/28/20 04:00 02/11/21 04:00 Labs: Abnormal Lab Results - Last 24 Hours (Table) 04/28/20 04/28/20 04/28/20 Range/Units 04:00 04:00 04:00 WBC 20.3 H (3.8-10.6) k/uL RBC 4.07 L (4.30-5.90) m/uL Hgb 10.8 L (13.0-17.5) gm/dL Hct 34.5 L (39.0-53.0) % RDW 21.8 H (11.5-15.5) % Plt Count 61 L (150-450) k/uL Neutrophils # (Manual) 17.86 H (1.3-7.7) k/uL Lymphocytes # (Manual) 0.61 L (1.0-4.8) k/uL Monocytes # (Manual) 1.83 H (0-1.0) k/uL APTT 72.4 H (22.0-30.0) sec Potassium 3.2 L (3.5-5.1) mmol/L BUN 43 H (9-20) mg/dL Creatinine 1.32 H (0.66-1.25) mg/dL Glucose 166 H (74-99) mg/dL Calcium 8.1 L (8.4-10.2) mg/dL Total Bilirubin 4.1 H (0.2-1.3) mg/dL Alkaline Phosphatase 159 H (38-126) U/L Total Protein 5.8 L (6.3-8.2) g/dL Albumin 2.4 L (3.5-5.0) g/dL
[2020-04-28] MEDS: MEROPENEM 1 GM in SODIUM CHLORIDE 0.9% 100 ML IVPB SCH ×3 (11:03→23:49)
[2020-04-28] MEDS: methylPREDNISolone SOD SUCCI 40 MG/ML 1 ML VIAL IV SCH ×3 (11:04→23:49)
[2020-04-28] MEDS: DOBUTamine DRIP 500 MG in DEXTROSE/WATER 1 250ML.BAG IV SCH (12:38)
--- NOTE | 2020-04-28 12:58 | PN ---
PROGRESS NOTE Gerber is a 70-year-old gentleman that is admitted to ICU with abdominal pain, sepsis and lactic acidosis developed acute pulmonary edema yesterday and could not undergo cholecystectomy or laparotomy. There is a concern for bowel ischemia and the patient continues to require increasing respiratory support. Today he remains in atrial fibrillation with controlled ventricular rate. He is on dobutamine and Lasix drip. PHYSICAL EXAMINATION: On exam, heart rate is 100 beats per minute. Blood pressure is 104/50. Respiratory rate is 18. Chest exam reveals diminished air entry with bilateral crackles. Heart exam reveals first and second heart sounds and a 3/6 systolic murmur at the apex. Abdomen is soft. Examination of extremities reveals bilateral pitting edema. LABS: Labs show that the white cell count is 20, hemoglobin is 10.8. Potassium is low at 3.2. Creatinine is 1.3. An echocardiogram shows worsening LV function with an ejection fraction 20% to 25% with moderate to severe mitral regurgitation. ASSESSMENT: 1. Acute worsening of chronic systolic heart failure. 2. Possible bowel ischemia. 3. Persistent atrial fibrillation. 4. Respiratory failure. PLAN: Will continue current medications. Prognosis is guarded. MMODL / IJN: [id number] /
--- NOTE | 2020-04-28 13:20 | PN ---
PROGRESS NOTE Patient is seen for followup for acute kidney injury mostly cardiorenal currently. The patient was started on Lasix drip. However, he continued to have poor urine output. Lasix drip was increased to 10. He is also maintained on dobutamine drip and his output seems to have improved to about 100 mL an hour. This morning patient was in more respiratory distress and is currently maintained on BiPAP. He is otherwise awake and comfortable. PHYSICAL EXAMINATION: Blood pressure this morning 108/58, heart rate 107 per minute. He is afebrile. EXAMINATION OF THE HEART: S1, S2. EXAMINATION OF THE LUNGS: Bilateral breath sounds are heard. Abdomen is soft, nontender. Examination of lower extremities shows edema 2+ bilaterally. CATTLE SPRAYER exam grossly intact. LABS: Labs show hemoglobin 10.8, white cell count 20.3. Sodium 143, potassium 3.2. BUN 43 serum creatinine 1.32. ASSESSMENT: 1. Acute kidney injury, cardiorenal, and secondary to hypotension. Urine output has picked up. Patient is diuresing well. Continue with Lasix drip and the dobutamine drip. 2. Volume overload and acute congestive heart failure exacerbation acute on top of chronic, mostly systolic. 3. Cardiomyopathy, ejection fraction of about 35%. 4. Acute hypoxic respiratory failure secondary to congestive heart failure, maintained on BiPAP. PLAN: Continue with the Lasix drip and dobutamine drip. Repeat labs in a.m. Replace potassium. MMODL / IJN: [id number] /
[2020-04-28] MEDS ORDERED: LIDOCAINE 1% INJ 10MG/ML (20 ML MDV) ONE (14:43)
--- NOTE | 2020-04-28 14:56 | P.PN ---
Subjective Progress Note Date: 04/28/20 Principal diagnosis: Abdomainal pain Patient is seen and examined in the ICU. He remains on 15 L with BiPAP. Cholecystectomy is canceled due to decline in respiratory status. Patient denies any abdominal pain, nausea or vomiting. States he still has not had a bowel movement. Objective - Vital Signs Vital signs: Vital Signs Temp 97.5 F L 04/28/20 08:00 Pulse 107 H 04/28/20 09:00 Resp 16 04/28/20 09:00 BP 105/62 04/22/20 16:00 Pulse Ox 95 04/28/20 09:00 Intake & Output 04/27/20 04/28/20 04/28/20 18:59 06:59 18:59 Intake Total 1123.368 732.835 380.6 Output Total 450 1335 520 Balance 673.368 -602.165 -139.4 Weight 71.9 kg 71.7 kg Intake: IV 665.6 520 160 DOBUTamine DRIP 500 mg In 25.6 Dextrose/Water 1 250ml. bag @ 5 MCG/KG/MIN 10.335 mls/hr IV .Q24H [facility] Rx#: [id number] NACL 240 20 Piperacillin-Tazobactam 3 200 100 100 .375 gm In Sodium Chloride 0.9% 100 ml @ 25 mls/hr IVPB Q8HR [facility] Rx# :[id number] Potassium Chloride 20 meq 100 In Water For Injection 1 100ml.bag @ 50 mls/hr IVPB Q2H [facility] Rx#: [id number] Sodium Chloride 0.9% 500 200 60 ml 500 ml @ 20 mls/hr IV .Q24H [facility] Rx#:[id number] metroNIDAZOLE-NS PMX 500 200 100 mg In Saline 1 100ml.bag @ 100 mls/hr IVPB Q8HR [facility] Rx#:[id number] Intake, IV Titration 357.768 212.835 120.6 Amount DOBUTamine DRIP 500 mg In 206.087 10.3 20.6 Dextrose/Water 1 250ml. bag @ 5 MCG/KG/MIN 10.335 mls/hr IV .Q24H [facility] Rx#: [id number] Furosemide 100 mg In 82.333 86.833 Sodium Chloride 0.9% 90 ml @ 10 MG/HR 10 mls/hr IV .Q10H [facility] Rx#: [id number] Heparin Sod,Pork in 0.45% 69.348 95.702 NaCl 25,000 unit In 0.45 % NaCl 1 250ml.bag @ 12 UNITS/KG/HR 8.268 mls/hr IV .Q24H [facility] Rx#: [id number] Potassium Chloride 20 meq 100 In Water For Injection 1 100ml.bag @ 50 mls/hr IVPB Q2H [facility] Rx#: [id number] Sodium Chloride 0.9% 500 20 ml 500 ml @ 20 mls/hr IV .Q24H [facility] Rx#:[id number] Oral 100 100 Output: Urine 450 1335 520 Other: Voiding Method Indwelling Catheter Indwelling Catheter Indwelling Catheter ABP, PAP, CO, CI - Last Documented Arterial Blood Pressure 108/58 - Exam General appearance: The patient is alert, oriented, appears in no acute distress. On bypap HET: Head is normocephalic and atraumatic. Conjunctiva pink. Sclera anicteric. Neck: Supple without lymphadenopathy. Abdomen: Soft, nontender, nondistended. No guarding or rigidity. Extremities: Normal skin color and turgor. No pedal edema Skin: Mildly jaundice Neurological: No focal deficits. Alert and oriented 3. - Labs CBC & Chem 7: 04/28/20 04:00 04/28/20 04:00 Labs: Abnormal Lab Results - Last 24 Hours (Table) 04/28/20 04/28/20 04/28/20 Range/Units 04:00 04:00 04:00 WBC 20.3 H (3.8-10.6) k/uL RBC 4.07 L (4.30-5.90) m/uL Hgb 10.8 L (13.0-17.5) gm/dL Hct 34.5 L (39.0-53.0) % RDW 21.8 H (11.5-15.5) % Plt Count 61 L (150-450) k/uL Neutrophils # (Manual) 17.86 H (1.3-7.7) k/uL Lymphocytes # (Manual) 0.61 L (1.0-4.8) k/uL Monocytes # (Manual) 1.83 H (0-1.0) k/uL APTT 72.4 H (22.0-30.0) sec Potassium 3.2 L (3.5-5.1) mmol/L BUN 43 H (9-20) mg/dL Creatinine 1.32 H (0.66-1.25) mg/dL Glucose 166 H (74-99) mg/dL Calcium 8.1 L (8.4-10.2) mg/dL Total Bilirubin 4.1 H (0.2-1.3) mg/dL Alkaline Phosphatase 159 H (38-126) U/L Total Protein 5.8 L (6.3-8.2) g/dL Albumin 2.4 L (3.5-5.0) g/dL Assessment and Plan (1) Cholecystitis Narrative/Plan: 70-year-old male with multiple medical comorbidities presenting with chest and abdominal pain. Patient has been receiving treatment in the intensive care unit for possible septicemia related to suspected cholecystitis. Enteritis also noted on prior imaging with computed tomography scan of the abdomen yesterday showing bibasilar atelectasis, improving enteritis of the duodenum and jejunum and recommendation to correlate for cystitis. Patient previously seen on prior hospitalization for elevated liver enzymes. Currently on broad-spectrum antibiotic therapy. Cholecystectomy postponed secondary to respiratory decompensation. Current Visit: Yes Status: Acute Code(s): K81.9 - CHOLECYSTITIS, UNSPECIFIED SNOMED Code(s): 59586711 (2) Enteritis Current Visit: Yes Status: Acute Code(s): K52.9 - NONINFECTIVE GASTROENTERITIS AND COLITIS, UNSPECIFIED SNOMED Code(s): 42496829 (3) Abdominal pain Current Visit: No Status: Acute Code(s): R10.9 - UNSPECIFIED ABDOMINAL PAIN SNOMED Code(s): 06673685 (4) Sludge in gallbladder Current Visit: Yes Status: Acute Code(s): K82.8 - OTHER SPECIFIED DISEASES OF GALLBLADDER SNOMED Code(s): 53532454 Plan: 1. Supportive care 2. Continue ICU management 3. Continue antibiotic therapy 4. Prior serologic workup for elevated liver enzymes ordered and reviewed and negative. Multiple imaging studies have been performed with no evidence of ductal dilation to suggest choledocholithiasis 5. Surgical service is following patient for management of cholecystitis Thank you for this consultation we will be on standby, please do not hesitate to call us for any further gastroenterology needs Dr. Haque I agree with the dictator's note, documented as a scribe by Yvrose Duke.
[2020-04-28] MEDS ORDERED: LIDOCAINE 1% INJ 10MG/ML (20 ML MDV) SQ ONE (15:05)
--- NOTE | 2020-04-28 15:27 | XR ---
EXAMINATION TYPE: XR chest 1V confirm line [facility] DATE OF EXAM: 04/28/2020 COMPARISON: Chest x-ray 04/28/2020 at earlier time HISTORY: Status post PICC line placement TECHNIQUE: Single frontal view of the chest is obtained. FINDINGS: There is been interval placement of a left-sided PICC line, distal tip is coursing to the level of the cavoatrial junction. No other significant interval change. IMPRESSION: No evident complication status post PICC line placement.
--- NOTE | 2020-04-28 15:31 | IR ---
EXAMINATION TYPE: IR cvc insert >=5 years DATE OF EXAM: 04/28/2020 COMPARISON: NONE HISTORY: Pneumonia, needs long-term intravenous access for total parenteral nutrition FINDINGS: Maximal barrier technique was utilized. Hand hygiene obtained with soap and water and alco hol-based hand rub. The skin overlying the left brachial vein was localized with ultrasound and noted to be compressible and patent by ultrasound. An ultrasound image was obtained and submitted on lyssa ent's chart. Sterile technique utilized with the ultrasound machine. The skin overlying was prepped a nd draped and Lidocaine used for local anesthesia. A skin ely was made with a scalpel. Access was gained to the vein under direct ultrasound guidance with a 21-gauge needle and a 0.018 inch wire was advanced. Access site was dilated with a peel-away sheath and the catheter tailored to length. Cath eter advanced centrally and a post procedure chest x-ray verified placement tip at the cavoatrial maribell ction. Catheter was fixed to the skin and a sterile dressing placed. Hemostasis achieved and the ca theter was aspirated and flushed with sterile saline. The patient remained in stable condition. IMPRESSION: STATUS POST ULTRASOUND GUIDED PICC LINE PLACEMENT, READY FOR USE. THIS PROCEDURE WAS PER FORMED BY THE UNDERSIGNED.
[2020-04-28 16:12] LABS: Magnesium 1.9 mg/dL (1.6-2.3); Phosphorus 3.4 mg/dL (2.5-4.5); Potassium 3.7 mmol/L (3.5-5.1)
[2020-04-28] MEDS: POTASSIUM CHLORIDE 10 MEQ in WATER FOR INJECTION 1 100ML.BAG IVPB SCH ×2 (16:48→17:52)
[2020-04-28 18:00] LABS: Glucose,Whole Blood 170 mg/dL (75-99)
[2020-04-28] MEDS ORDERED: MVI, ADULT NO.4 WITH VIT K 10 ML, TRACE (CONC-1ML/DOSE) 1 ML in AMINO ACID 5%-D20W+LYTE... IV SCH ×3 (18:00)
[2020-04-28] MEDS: INSULIN ASPART (NovoLOG) 100 UNIT/ML VIAL SQ SCH ×2 (18:10→23:50)
--- NOTE | 2020-04-28 20:16 | P.PN ---
Progress Note - Text Progress Note Date: 04/28/20 Presenting complaint Chest pain: Interval course: Patient was recently in the hospital with ischemic colitis with resultant hypotension lactic acidosis ischemic hepatitis, acute CHF exacerbation was admitted to the ICU. Now presented with chest pain. Found to be atypical. Negative troponins. Ultrasound of the abdomen showed gallbladder sludge. Suspicion for acute cholecystitis. Followed by surgery. No history of carotid artery disease. Known EF of 30-35%. Also atrial fibrillation, hyperlipidemia, AICD. April 20-surgery was postponed for a sodium of 127 by anesthesia. Patient was given salt tablet fluid restriction and held of free fluid. Following day sodium went to 128. Nephrology consulted. Ordered Samsca. On April 22 patient had increasing abdominal pain. Worsening renal function. Lactic acidosis. Moved to ICU. Started IV Zosyn. IV fluids. Bicarbonate drip. Hypothermic. Placed on dobutamine. Today-ICU: Has been on BiPAP all day with a setting of 12/5. Sinus tachycardia. Urine output is fair. Drips include dobutamine at 5 mics and Lasix at 10 mg an hour. Awake tired. Slight abdominal pain. Review of systems: Was done for constitutional, cardiovascular, GI, pulmonary. relevant finding as above Active Medications Al Hydroxide/Mg Hydroxide (Mag Hydrox/Al Hydrox/Simeth 30 Ml Cup) 30 ml PO Q4HR PRN PRN Reason: GI Upset Last Admin: 04/18/20 00:31 Dose: 30 ml Documented by: Bisacodyl (Bisacodyl 10 Mg Supp) 10 mg RECTAL HS [facility] Last Admin: 04/27/20 21:00 Dose: 10 mg Documented by: Enoxaparin Sodium (Enoxaparin 30 Mg/0.3 Ml Syringe) 30 mg SQ DAILY [facility] Hydromorphone HCl (Hydromorphone 1 Mg/Ml 1 Ml Syringe) 1 mg IVP Q3HR PRN PRN Reason: Pain Last Admin: 04/28/20 08:02 Dose: 1 mg Documented by: Metronidazole 500 mg/ IV (Solution) 100 mls @ 100 mls/hr IVPB Q8HR [facility] Last Admin: 04/28/20 15:40 Dose: 100 mls/hr Documented by: Dobutamine HCl/Dextrose 500 mg (/ IV Solution) 250 mls @ 10.335 mls/hr IV .Q24H [facility] Last Admin: 04/28/20 12:38 Dose: 5 mcg/kg/min, 10.335 mls/hr Documented by: Furosemide 100 mg/ Sodium (Chloride) 100 mls @ 10 mls/hr IV .Q10H [facility] Last Admin: 04/28/20 18:14 Dose: 10 mg/hr, 10 mls/hr Documented by: Sodium Chloride (Saline 0.9%) 500 mls @ 20 mls/hr IV .Q24H [facility] Last Admin: 04/28/20 08:28 Dose: 20 mls/hr Documented by: Meropenem 1 gm/ Sodium (Chloride) 100 mls @ 33.3 mls/hr IVPB Q8HR [facility]; Protocol Last Admin: 04/28/20 16:10 Dose: 33.3 mls/hr Documented by: Parenteral Vitamin Supplement 10 ml/ Zinc/Copper/Manganese/Selenium 1 ml/ Amino Ac/Electrol/Dextrose/Calcium 1,011 mls @ 30 mls/hr IV .Q24H [facility] Stop: 04/29/20 17:59 Last Admin: 04/28/20 17:53 Dose: 30 mls/hr Documented by: Parenteral Vitamin Supplement 10 ml/ Zinc/Copper/Manganese/Selenium 1 ml/ Amino Ac/Electrol/Dextrose/Calcium 1,011 mls @ 80 mls/hr IV .BY DURATION [facility] Amino Ac/Electrol/Dextrose/Calcium (Clinimix E 5%-20% Solution) 1,000 mls @ 80 mls/hr IV .BY DURATION [facility] Fat Emulsion Intravenous 250 (ml/ IV Solution) 250 mls @ 21 mls/hr IV MoWeFr [facility] Insulin Aspart (Insulin Aspart (Novolog) 100 Unit/Ml Vial) 0 unit SQ Q6HR [facility]; Protocol Last Admin: 04/28/20 18:10 Dose: 2 unit Documented by: Lidocaine HCl (Lidocaine 1% (10mg/Ml) For Iv Start) 0.1 ml INTRADERMA PER PROTOCOL PRN PRN Reason: IV Start Methylprednisolone Sodium Succinate (Methylprednisolone Sod Succi 40 Mg/Ml 1 Ml Vial) 40 mg IV Q8HR [facility] Last Admin: 04/28/20 15:40 Dose: 40 mg Documented by: Metoprolol Succinate (Metoprolol Succinate (Er) 25 Mg Tab.Er.24h) 25 mg PO DAILY [facility] Last Admin: 04/28/20 09:26 Dose: 25 mg Documented by: Midodrine (Midodrine 5 Mg Tab) 5 mg PO AC-TID [facility] Last Admin: 04/28/20 17:52 Dose: 5 mg Documented by: Miscellaneous Information (Potassium Replacement Protocol 1 Each Misc) 1 each MISCELLANE DAILY PRN; Protocol PRN Reason: Per Protocol Nitroglycerin (Nitroglycerin Sl Tabs 0.4 Mg Tab) 0.4 mg SUBLINGUAL Q5M PRN PRN Reason: Chest Pain Last Admin: 04/17/20 20:06 Dose: 0.4 mg Documented by: Ondansetron HCl (Ondansetron 4 Mg/2 Ml Vial) 4 mg IVP Q6HR PRN PRN Reason: Nausea And Vomiting Last Admin: 04/24/20 10:01 Dose: 4 mg Documented by: Pantoprazole Sodium (Pantoprazole 40 Mg/10 Ml Vial) 40 mg IV DAILY [facility] Last Admin: 04/28/20 08:14 Dose: 40 mg Documented by: Sodium Chloride (Sodium Chloride 0.9% Flush 10 Ml Syringe) 10 ml IV Q4HR PRN PRN Reason: PICC Line Sodium Chloride (Sodium Chloride 0.9% Flush 10 Ml Syringe) 10 ml IV WEEKLY [facility] Sodium Chloride (Sodium Chloride 0.9% Flush 10 Ml Syringe) 20 ml IV Q4HR PRN PRN Reason: PICC Line On examination: VITAL SIGNS: 96.2, 105, 23, 108/57, 94% on BiPAP 50% GENERAL APPEARANCE: Reclining in bed, awake, tired HEENT: Normal external appearance of nose and ear. Oral cavity normal EYES: Pupils equal. Conjunctiva normal. NECK: JVD not raised. Mass not palpable. RESPIRATORY: Respiratory effort normal. Lungs clear to auscultation. CARDIOVASCULAR: Heart sounds irregular. No edema. ABDOMEN: Soft. Liver and spleen not palpable. No abdominal tenderness, no obvious guarding rigidity. No mass palpable. PSYCHIATRY: Alert and oriented x3. Mood and affect anxious. Investigations: April 28: WBC 20.3 hemoglobin 10.8 platelets 61 potassium 3.2 bun 43 creatinine 1.3 to Checks x-ray film personally reviewed by me shows-infiltrate versus less likely edema April 27: White count 15.8 hemoglobin 10.5 platelets 76 potassium 3.9 creatinine 1.24 AST 42 ALT 43 albumin 2.2 Chest [id number] April 26: White count 8.7 hemoglobin 11 platelets 97 potassium 3.5 creatinine 1.16 AST 62 ALT 56 Chest x-ray film personally reviewed by me-bilateral possible pulmonary edema. Interstitial infiltrate cannot be ruled out April 25: White count 21.4 hemoglobin 11.5 platelets 121 potassium 3.6 bun 30 creatinine 1.44 AST 125 ALT 76 April 24: White count 8.6 hemoglobin 11 platelets 138 INR 1.6 potassium 2.9 bun 40 creatinine 1.93 AST 224 ALT 104 April 23: White count 25 hemoglobin 11 increased neutrophils INR 1.9 potassium 4.2 bicarb 29 bun 50 creatinine 2.45 AST 356 ALT 128 Computed tomography scan of the abdomen-persistent but improved wall thickening involving the duodenum and proximal jejunum. April 22: White count 31.7 hemoglobin 11.7 potassium 5.7 bun 44 creatinine 2.64 bicarb 11 lactic acid 12.6 AST 544 ALT 144 Computed tomography scan abdomen and pelvis-mild to moderate acute enteritis involving the duodenum and proximal jejunum April 21: Sodium 128 bun 29 creatinine 1.58. Serum osmolality 282 White count 8.6 hemoglobin 12.7 platelets 298 sodium 127 potassium 4.7 creatinine 1.26 Coronavirus [PCR]-not detected EKG tracing-left bundle-branch block pattern Assessment: -Acute enteritis involving the duodenum and proximal jejunum. Probably hypotensive episode/etiology. With hydration that seems to have improved. -Acute metabolic acidosis from worsening renal -corrected -Acute kidney injury, ATN-some improvement, then worsening -Acute ischemic hepatitis improved -Acute lactic acidosis likely combination of type I-type improved -Hypokalemia-corrected -Acute cholecystitis, diagnoses now in -question . On IV Zosyn-changed to IV for meropenem today, and IV Flagyl. -Hyponatremia, suspect hypervolemia from CHF. Normal osmolar. Improved -Chest pain-felt to be noncardiac -Coronary artery disease with cardiac cath in February 2020 revealing chronically occluded RCA extensive [id number] collaterals etc. -Acute on Chronic congestive heart failure from systolic dysfunction EF 25-30% started on Lasix drip -Paroxysmal atrial fibrillation chronically on eliquis. Was on IV heparin- discontinued -AICD for ventricular tachycardia Plan: In the ICU. Continue IV Flagyl IV cefepime. ,. , on dobutamine. , IV Lasix drip.. Be started on TPN and lipids. IV heparin discontinued by Dr. Batista today.
[2020-04-28] MEDS: ONDANSETRON 4 MG/2 ML VIAL IVP PRN (20:45)
--- NOTE | 2020-04-28 21:51 | PN ---
PROGRESS NOTE DATE OF SERVICE: 04/28/2020 REASON FOR FOLLOWUP: 1. Cholecystitis. 2. Enteritis. INTERVAL HISTORY: The patient is currently afebrile. He was slightly hypothermic this morning. The patient is borderline hemodynamically hyp tensive. He has been requiring BiPAP for respiratory support. No vomiting or diarrhea has been reported. Patient denies having chest pain or abdominal pain. PHYSICAL EXAMINATION: Blood pressure is 89/56 with pulse of 111, temperature 96.4. He is 94% on BiPAP. General description is an elderly male lying in bed in no distress. RESPIRATORY SYSTEM: Unlabored breathing with decreased intensity of breath sounds. No wheeze. HEART: S1, S2. Regular rate and rhythm. ABDOMEN: Soft. No tenderness. LABS: Hemoglobin is 10.1, white count 20.3, BUN of 43, creatinine 1.32. DIAGNOSTIC IMPRESSION AND PLAN: Patient with acute respiratory failure in this patient with concern for cholecystitis and enteritis. Antibiotic has been broadened to meropenem by Pulmonary; to continue at this point while monitoring his clinical course closely. Continue with supportive care. MMODL / IJN: [id number] /
[2020-04-28 23:43] LABS: Glucose,Whole Blood 266 mg/dL (75-99)
[2020-04-28] MEDS: bisacodyL 10 MG SUPP RECTAL SCH (23:49)
[2020-04-29] MEDS: FUROSEMIDE 100 MG in SODIUM CHLORIDE 0.9% 90 ML IV SCH (03:04)
[2020-04-29 04:08] LABS: Anisocytosis Moderate; HCT 34.6 % (39.0-53.0); HGB 10.9 gm/dL (13.0-17.5); Hypochromasia Moderate; MCH 26.7 pg (25.0-35.0); MCHC 31.4 g/dL (31.0-37.0); Mean Platelet Volume 9.3; Microcytosis Slight; Poikilocytosis Moderate; RBC 4.07 m/uL (4.30-5.90)
[2020-04-29 04:14] LABS: Platelet Count 50 k/uL (150-450)
[2020-04-29 04:20] LABS: Ionized Calcium 4.9 mg/dL (4.5-5.3)
[2020-04-29 04:31] LABS: Albumin 2.2 g/dL (3.5-5.0); Phosphorus 2.5 mg/dL (2.5-4.5); Potassium 2.9 mmol/L (3.5-5.1); Total Bilirubin 3.7 mg/dL (0.2-1.3)
[2020-04-29 04:55] LABS: Anisocytosis (M) Present; Band Neutrophils % 3 %; Lymphocytes # (M) 0.65 k/uL (1.0-4.8); Monocytes # (M) 0.22 k/uL (0-1.0); Neutrophils % (M) 94 %; Nucleated Red Blood Cells 4 /100 WBC (0-0); Poikilocytosis (M) Present; Target Cells Present; Total Cells Counted 200; WBC 21.7 k/uL (3.8-10.6)
[2020-04-29] MEDS: POTASSIUM CHLORIDE 20 MEQ in WATER FOR INJECTION 1 100ML.BAG IVPB SCH ×3 (04:55→09:03)
[2020-04-29 04:56] LABS: Crenated RBC Present; Polychromasia Present
[2020-04-29 06:02] LABS: Glucose,Whole Blood 255 mg/dL (75-99)
[2020-04-29] MEDS: INSULIN ASPART (NovoLOG) 100 UNIT/ML VIAL SQ SCH ×3 (06:21→17:36)
[2020-04-29] MEDS: MIDODRINE 5 MG TAB PO SCH ×3 (06:38→17:20)
[2020-04-29] MEDS: SODIUM CHLORIDE 0.9% 500 ML 500 ML IV SCH (07:00)
[2020-04-29] MEDS ORDERED: FAT EMULSION 20% 250 ML in EMPTY BAG 1 BAG IV SCH (09:00)
[2020-04-29] MEDS ORDERED: ENOXAPARIN 30 MG/0.3 ML SYRINGE SQ SCH (09:00)
[2020-04-29] MEDS: MEROPENEM 1 GM in SODIUM CHLORIDE 0.9% 100 ML IVPB SCH ×2 (09:03→15:41)
[2020-04-29] MEDS: methylPREDNISolone SOD SUCCI 40 MG/ML 1 ML VIAL IV SCH ×3 (09:05→23:47)
[2020-04-29] MEDS: metroNIDAZOLE-NS PMX 500 MG in SALINE 1 100ML.BAG IVPB SCH ×3 (09:05→22:59)
[2020-04-29] MEDS: PANTOPRAZOLE 40 MG/10 ML VIAL IV SCH (09:06)
[2020-04-29] MEDS: METOPROLOL SUCCINATE (ER) 25 MG TAB.ER.24H PO SCH (09:06)
--- NOTE | 2020-04-29 09:21 | P.PN ---
Subjective Progress Note Date: 04/29/20 This is a 70-year-old male who presented to the emergency department on April 17, at 1020 in the morning. The patient's complaints include primarily chest and abdominal pain. It began the night prior about 12 hours earlier. It's sharp constant consistent pain in the lower right chest area and right upper abdominal area. He denied any nausea, vomiting, or diarrhea. The patient was recently inpatient for pulmonary edema and ascites. The patient was evaluated and discovered to have acute cholecystitis. The patient was to have surgery but the sodium was low and so the surgery was canceled. Then, the patient was hypotensive, and hypothermic. In addition, his lactic acid had risen to above 12. For that reason, the patient was admitted to the intensive care unit for further evaluation and management. The patient's white count jumped up to 31.7, hemoglobin 11.7, hematocrit 37.5, and platelet count was normal. Sodium was 130, potassium 5.7, chloride 73, CO2 11, anion gap was 26, a nd BUN and creatinine were 44 and 2.64. These labs are consistent with a anion gap metabolic acidosis, secondary to renal failure and lactic acidemia. The patient's AST was 544, ALT 144, and alkaline phosphatase was 205. Bilirubin was elevated at 3.0. Chest x-ray today showed bilateral areas of atelectasis, pneumonia, edema, and effusions. CT of the abdomen and pelvis revealed evidence of moderate acute enteritis involving the duodenum and proximal jejunum, bilateral lower pleural effusions, and associated compressive atelectasis. The patient was only started on antibiotics. He was given left internal jugular triple-lumen catheter, and a left radial art line. His current antibiotic is Zosyn and flagyl. An NG tube in place. He continued to have abdominal pain. Tends to localize in the right upper quadrant. It is diffuse as well though. On today's evaluation of 04/25/2020, the patient is being seen for a follow-up. He is having mild abdominal pain which is improved compared to yesterday. No fever. White cell count is at 21.4. Hemoglobin is at 11.5. He has 87% neutr ophilia. On his electrolytes, sodium level is at 146 with a serum bicarb of 31 and a creatinine of 1.4 which is improved compared to yesterday when his creatinine was at 1.9. His bilirubin is at 4.6 with an AST of 125 and ALT of 76 both liver function tests are improving and the bilirubin is essentially slightly higher compared to yesterday. His alkaline phosphatase is stable at 183. His lactic acidosis high as 12 and is down to 1.4. The patient remains on antibiotic coverage utilizing a combination of Zosyn and Flagyl. He has history of chronic atrial fibrillation current rhythm is sinus and the patient is not receiving any form of anticoagulation for now. On 04/26/2019 100 mL the patient for the follow-up is awake and alert. The plan is to proceed with cholecystectomy today. Terms of his abdomen, the patient's abdomen is nontender and is soft and he has positive bowel sounds. He is not having any nausea or emesis. The patient is scheduled to undergo a cholecystectomy noontime today. He is currently nothing by mouth. He remains in atrial fibrillation. He was given IV heparin yesterday and heparin and to be discontinued as the patient's been reviewed was coming back supratherapeutic. Currently is off anticoagulation. My plan is to keep him off anticoagulation for the cholecystectomy and ultimately the patient will be switched to oral anticoagulation following his surgery. He remains on a combination of Zosyn and Flagyl. No bowel movement activity yet. No abdominal distention. No fever. No chills. Urine output was slightly diminished earlier this morning and the patient was given 1 L of normal saline. White cell count is down to 19.7 with a hemoglobin of 11. These electrodes are still pending for now. No altered mentation. No signs of any decompensated heart failure On 04/27/2019, I'm seeing the patient for a follow-up. Unfortunately, since yesterday afternoon, that it been some decompensation the patient's pulmonary status. The patient became progressively more hypoxic. He was placed on oxygen at 15 L high flow. A repeat chest x-ray was done and the patient was an obvious pulmonary edema. At that point, he was given Lasix. His initial response was minimal. Subsequently he was started on dobutamine at 2.5 g per KG per minute. He started making better urine output. He was given a total of 60 mg IV push Lasix and later on he was given additional 40 mg IV push. Current urine output is in order of 50 mL an hour. He is started on oxygen at 15 L. Chest x-ray continues to be abnormal with pulmonary edema and the patient's crackling on both sides of his lungs. He has positive JVDs. His cardiac rhythm is irregular consistent with atrial fibrillation with a bundle-branch block pattern. He remains on IV heparin. Earlier this morning, he started again to have diffuse abdominal pain. He was maintained on a combination of Zosyn and Flagyl. No diarrhea. No abdominal distention. He was given Dilaudid and his pain is under better control for now. He has adequate pulses in lower extremities bilaterally although they're diminished. He is lethargic but arousable. He with follows some simple commands. His family was at the bedside yesterday and we had a lengthy discussion about his status and prognosis which is obviously poor. The patient was scheduled to undergo a cholecystectomy. However, based on his li mited and borderline condition, the surgery has been postponed. For now, the white cell count is down to 15.8 from 19.7. Hemoglobin is at 10.5 mile his platelets have dropped down to 76, his. He is therapeutic at 61, his BUN is at 35 with a creatinine of 1.2, glucose is 184, calcium level is at 8.2, AST and ALP are both within normal limits and alkaline phosphatase is at 151 with an albumin level of 2.2. He is afebrile for now. 04/28/2020 I'm seeing the patient for a follow-up. The patient's has been transitioned to a BiPAP and currently is on a BiPAP pressure of 12/6 with an FiO2 of 60%. His chest x-ray showing diffuse bilateral pulmonary infiltrates consistent with pulmonary edema. Possibility of noncardiogenic pulmonary edema cannot be completely excluded. He has a right-sided pleural effusion. No aspiration. He is still on IV Zosyn and Flagyl combination. I started the dmitry eaton on dobutamine yesterday and the dose has been increased up to 5 mg/kg/m. I also started him on Lasix 10 mg an hour. He is making better urine output and the neck fluid balance over the past 24 hours has been aggravated to 86 mL. His weight is up to 71 kg. He is awake. He communicates. He is lethargic. He is on IV heparin. He is in a sinus rhythm with a bundle-branch block pattern. He is on IV heparin. Platelet counts have dropped down to 61. No signs of bleeding. White cell count is up to 20.3. Renal function is also abnormal with a creatinine of 1.3, although comparable to yesterday. Serum bicarb is 28. Potassium is at 3.2. The patient is not having any significant abdominal pain for now. He remains nothing by mouth. He remains on a combination of Zosyn and Flagyl. No diarrhea. No significant abdominal distention. His taken Dilaudid for pain control. 04/29/2020 the patient is being seen for a follow-up. Unfortunately, progress is limited and the patient is still in acute hypoxic respiratory failure with diffuse bilateral pulmonary infiltrates. This morning, the patient is BiPAP dependent at a pressure of 12/6 cm of water with an FiO2 of 60%. His chest x- ray still showing diffuse bilateral pulmonary infiltrates, unchanged and this could be cardiogenic versus noncardiogenic pulmonary edema. His abdomen remains tender and his white cell count is elevated at 21.7 and his pro-calcitonin level is at 3.43. At the same time, his proBNP level is elevated at 9840. The patient is currently lethargic but he is awake and arousable and his communicating. The is BiPAP dependent. Is on dobutamine which is running at 5 mcg/kg per minute and is also on Lasix drip at 10 mg an hour. He is also on TPN running at 30 mL an hour. His net fluid balance over the past 24 hours is -139 mL. His urine output is in the order of 100 mL an hour. His creatinine is stable at 1.24. His potassium level is at 2.9 and the patient's sodium is on the rise as the patient is being diuresed with Lasix and his current sodium is 147. His LFTs has normalized. His AST and ALP are within normal limits, bilirubin is at 3.7, alkaline phosphatase of 142. I had a lengthy discussion with the surgeon. We are considering the possibility of doing a laparoscopic evaluation of his abdomen looking for ischemic bowel and possibly undergoing a cholecystectomy. It is possible that the patient has an abdominal issue with ischemia/bowel ischemia which is preventing his recovery. I'm not seeing much of an improvement over the past 48 hours. Objective - Vital Signs Vital signs: Vital Signs Temp 96.8 F L 04/29/20 08:00 Pulse 109 H 04/29/20 08:00 Resp 21 04/29/20 08:00 BP 105/62 04/22/20 16:00 Pulse Ox 93 L 04/29/20 08:00 Intake & Output 04/28/20 04/29/20 04/29/20 18:59 06:59 18:59 Intake Total 1611.336 884.333 292 Output Total 1185 1450 275 Balance 426.336 -565.667 17 Weight 71.7 kg 72.2 kg Intake: IV 560 796 292 Meropenem 1 gm In Sodium 100 Chloride 0.9% 100 ml @ 33 .3 mls/hr IVPB Q8HR [facility] Rx#:[id number] Mvi, Adult No.4 with Vit 330 60 K 10 ml Trace (Conc-1Ml/ Dose) 1 ml In Amino Acid 5%-D20w+Lytes*E* 1,000 ml @ 30 mls/hr IV .Q24H [facility] Rx#:[id number] Piperacillin-Tazobactam 3 100 .375 gm In Sodium Chloride 0.9% 100 ml @ 25 mls/hr IVPB Q8HR [facility] Rx# :[id number] Potassium Chloride 20 meq 200 In Water For Injection 1 100ml.bag @ 50 mls/hr IVPB Q2H [facility] Rx#: [id number] Pressure bags 66 12 Sodium Chloride 0.9% 500 260 200 20 ml 500 ml @ 20 mls/hr IV .Q24H [facility] Rx#:[id number] metroNIDAZOLE-NS PMX 500 200 100 mg In Saline 1 100ml.bag @ 100 mls/hr IVPB Q8HR [facility] Rx#:[id number] Intake, IV Titration 901.336 88.333 Amount DOBUTamine DRIP 500 mg In 169.503 Dextrose/Water 1 250ml. bag @ 5 MCG/KG/MIN 10.335 mls/hr IV .Q24H [facility] Rx#: [id number] Furosemide 100 mg In 171.833 88.333 Sodium Chloride 0.9% 90 ml @ 10 MG/HR 10 mls/hr IV .Q10H [facility] Rx#: [id number] Meropenem 1 gm In Sodium 200 Chloride 0.9% 100 ml @ 33 .3 mls/hr IVPB Q8HR [facility] Rx#:[id number] Mvi, Adult No.4 with Vit 60 K 10 ml Trace (Conc-1Ml/ Dose) 1 ml In Amino Acid 5%-D20w+Lytes*E* 1,000 ml @ 30 mls/hr IV .Q24H [facility] Rx#:[id number] Potassium Chloride 10 meq 200 In Water For Injection 1 100ml.bag @ 100 mls/hr IVPB Q1H [facility] Rx#: [id number] Potassium Chloride 20 meq 100 In Water For Injection 1 100ml.bag @ 50 mls/hr IVPB Q2H [facility] Rx#: [id number] Oral 150 Output: Urine 1185 1450 275 Other: Voiding Method Indwelling Catheter Indwelling Catheter ABP, PAP, CO, CI - Last Documented Arterial Blood Pressure 109/58 - Exam Moderately severe abdominal pain, oriented 3. The patient is lying supine, the patient currently is on a BiPAP at a pressure of 12/6 cm of water and FiO2 of 60% L. she is lethargic. He is following some commands. He is arousable and able to communicate and he seems to be appropriate at this point in time. Head exam was generally normal. There was no scleral icterus or corneal arcus. Mucous membranes were moist. Neck was supple and without jugular venous distension, thyromegaly, or carotid bruits. Carotids were easily palpable bilaterally. There was no adenopathy. Cardiovascular examination reveals regular rhythm rate. S1-S2 normal. No S3 or S4. No discernible murmur noted. Lungs reveal bilateral rhonchi and lower lobe crackles. Breath sounds equal bi laterally. The patient does have bilateral crackles. Abdominal exam revealed normal bowel sounds. The abdomen was soft, tender, and without masses, organomegaly, or appreciable enlargement of the abdominal aorta. She was having diffuse abdominal tenderness earlier and he was given Dilaudid and currently he seems to be tender on my physical examination. Bowel sounds are sluggish. Extremities are intact. No cyanosis clubbing or edema. Diminished pulses in the lower extremities bilaterally. Extremities are still warm. Skin is without rash or lesion. Neurologic examination is brief but nonfocal. - Labs CBC & Chem 7: 04/29/20 03:45 04/29/20 03:45 Labs: Abnormal Lab Results - Last 24 Hours (Table) 04/28/20 04/28/20 04/28/20 Range/Units 11:45 17:58 23:41 WBC (3.8-10.6) k/uL RBC (4.30-5.90) m/uL Hgb (13.0-17.5) gm/dL Hct (39.0-53.0) % RDW (11.5-15.5) % Plt Count (150-450) k/uL Neutrophils # (Manual) (1.3-7.7) k/uL Lymphocytes # (Manual) (1.0-4.8) k/uL Nucleated RBCs (0-0) /100 WBC Sodium (137-145) mmol/L Potassium (3.5-5.1) mmol/L Chloride (98-107) mmol/L BUN (9-20) mg/dL Glucose (74-99) mg/dL POC Glucose (mg/dL) 170 H 266 H (75-99) mg/dL Calcium (8.4-10.2) mg/dL Total Bilirubin (0.2-1.3) mg/dL Alkaline Phosphatase (38-126) U/L Total Protein (6.3-8.2) g/dL Albumin (3.5-5.0) g/dL Procalcitonin 3.43 H (0.02-0.09) ng/mL 04/29/20 04/29/20 04/29/20 Range/Units 03:45 03:45 05:59 WBC 21.7 H (3.8-10.6) k/uL RBC 4.07 L (4.30-5.90) m/uL Hgb 10.9 L (13.0-17.5) gm/dL Hct 34.6 L (39.0-53.0) % RDW 22.0 H (11.5-15.5) % Plt Count 50 L (150-450) k/uL Neutrophils # (Manual) 21.00 H (1.3-7.7) k/uL Lymphocytes # (Manual) 0.65 L (1.0-4.8) k/uL Nucleated RBCs 4 H (0-0) /100 WBC Sodium 147 H (137-145) mmol/L Potassium 2.9 L (3.5-5.1) mmol/L Chloride 110 H (98-107) mmol/L BUN 52 H (9-20) mg/dL Glucose 240 H (74-99) mg/dL POC Glucose (mg/dL) 255 H (75-99) mg/dL Calcium 8.0 L (8.4-10.2) mg/dL Total Bilirubin 3.7 H (0.2-1.3) mg/dL Alkaline Phosphatase 142 H (38-126) U/L Total Protein 5.0 L (6.3-8.2) g/dL Albumin 2.2 L (3.5-5.0) g/dL Procalcitonin (0.02-0.09) ng/mL Microbiology - Last 24 Hours (Table) 04/27/20 09:50 Blood Culture - Preliminary Blood No Growth after 24 hours Assessment and Plan Plan: 1 Sepsis, secondary to suspected acute cholecystitis/enteritis. The patient has ischemic changes involving the duodenum and jejunum in addition to biliary sludge the patient presented with abdominal pain, diffuse in addition to severe lactic acidosis. Highly suspicious that this was a mesenteric ischemia. Note that the patient was seen by vascular surgery and the patient was also seen by general surgery. The patient was resuscitated. The patient was given fluids and antibiotics and the patient's lactic acid level improved and his abdominal pain is subsided. Acute kidney injury is improving and the liver functions is also improving. He remains nothing by mouth. The patient has undergone a visceral angiogram showed mild disease of the celiac artery and no significant stenosis of the SMA, I am a and there was no clear evidence indicating PAD of the mesenteric arteries he had still, the possibility of ischemic colitis cannot be ruled out special ed his underlying severe cardiomyopathy. On 04/27/2020, the patient was having some abdominal pain earlier that was rather diffuse consistent with ischemic colitis. He remains on the same antibiotic coverage. He was given Dilaudid and the pain is subsided. His white cell count is up to 15. No abdominal distention. His abdomen is not firm at this point in time. Nevertheless, there is concern of ongoing ischemic bowel. The cholecystectomy still on standby for the patient is further stabilized knowing that his respiratory status had decompensated over the past 24 hours. On 04/28/2020, no plans for cholecystectomy and the patient is still being covered with antibiotics and no clear indication for any On 04/29/2020, the patient continues to have abdominal tenderness and his white cell count is elevated and the pro calcitonin level is also elevated. His white cell count is elevated. Abdomen is tender. There may be an ongoing issue with small bowel ischemia. May benefit from exploration specially the patient's condition is not improving and he is still on respiratory failure 2 . acute hypoxic respiratory failure terminal worsening of the pulmonary status and the patient is currently on a BiPAP at a pressure of 12/6 cm of water with an FiO2 of 60%. Chest x-ray showing diffuse breath and pulmonary infiltrates. Consider cardiogenic versus noncardiogenic pulmonary edema/ARDS. The patient's is currently on a combination of dobutamine drip at 5 mg/kg per minute in addition to Lasix drip at 10 mg an hour. He is BiPAP dependent.He failed high flow oxygen. or pulmonary status is unchanged. His last chest x- ray findings that showing diffuse bilateral pulmonary infiltrates/edema. 3 Possible small bowel ischemic/inflammatory changes. 4 acute kidney injury, improving , creatinine is down to 1.25 5 acute Lactic acidemia, much improved. 6 hyponatremia secondary to diuresis 7 History of chronic atrial fibrillation. The patient is on no anticoagulation for now 8 History of CAD, status post stent placement. Coronary artery disease with chronically occluded RCA and collaterals in addition to moderate to moderate disease involving LAD and circumflex and this is based on a cardiac catheterization from the year 1999 9 History of hyperlipidemia. 10 History of essential hypertension. 11 History of myocardial infarction. 12 chronic atrial fibrillation, slightly tachycardic this morning with a wide bundle branch block pattern 13 CHF with an EF 35% 14 History of previous cardiac ablation and AICD placement. The patient has history of V. tach and the patient undergone previous ablation 15 PAD without significant mesenteric artery occlusive disease 16 Hypothermia, and hypotension, secondary to suspected sepsis, improved. 17 thrombocytopenia Plan: Lactic acid levels to be rechecked IV Merrem and Flagyl Continue BiPAP Check pro calcitonin level is elevated, BNP is elevated level, lactic acid level to be rechecked and repeat blood cultures are negative Check a CVP 8 Continue the dobutamine at 5mcg/kg per minute. Reduce Lasix drip at 5 mg an hour. Monitor oxygenation. Monitor urine output. Utilizes BiPAP on and off during the day to optimize his respiratory status at a pressure of 12/6 cm of water and FiO2 will be regulated accordingly. IV Solu-Medrol for possible acute lung injury at a dose of 40 mg every 8 hours Have elected discussion with the patient. Unfortunately the patient is not doing any progress and there is still ongoing concern for ischemic bowel. If the patient has bowel ischemia/necrosis, he will not show any signs of an improvement. As such we thought of doing a laparoscopic aspiration of his abdomen especially if he continues to be tender in his abdomen and his white cell count remains elevated. Repeat lactic acid level. This is a quite extensive and high-risk procedure based on comorbidities. He may need to be intubated and placed on mechanical ventilator. I'm going to present this with the family. If willing, we will make consider a laparoscopic evaluation of his abdomen and possible cholecystectomy. LFTs have normalized. He remains on broad-spectrum antibiotics for now. I contacted the daughter and discussed the findings and further discussions are to follow prior to Keep the patient ICU for now. We'll continue to follow I will discuss this case with the rest of the consultants including vascular surgery and general surgery and cardiology. Critically care evaluation Time with Patient: Greater than 30 Time with Patient: Greater than 30
--- NOTE | 2020-04-29 09:23 | XR ---
EXAMINATION TYPE: XR chest 1V DATE OF EXAM: 04/29/2020 COMPARISON: NONE HISTORY: sob TECHNIQUE: Single frontal view of the chest is obtained. FINDINGS: Diffuse interstitial pattern with bilateral consolidation and pleural effusion. Cardiac de vice seen with the multiple cardiac leads identified. Central line noted in position. No pneumothorax . Diffuse osteopenia and arthropathy of the shoulders. IMPRESSION: 1. Diffuse bilateral pleural-parenchymal changes are stable most typical of diffuse pneumonia. Correl ate clinically to exclude pulmonary edema.
--- NOTE | 2020-04-29 09:54 | PN ---
PROGRESS NOTE Gerber is a 70-year-old gentleman with history of ischemic cardiomyopathy, mitral regurgitation, ventricular tachycardia, status post AICD, and persistent atrial fibrillation, who is admitted to hospital with abdominal pain, thought to be either due to cholecystitis or ischemic bowel. He remains in ICU, short of breath at rest, in atrial fibrillation with reasonably well controlled ventricular rate. He was on heparin, this is currently on hold secondary to thrombocytopenia. He is in acute pulmonary edema, currently on intravenous dobutamine and Lasix drip. He has good urine output. His potassium is low, currently being supplemented. His BUN has gone up to 50, creatinine is 1.2. PHYSICAL EXAMINATION: On exam, heart rate is 100 beats per minute. Blood pressure is 118/65. Respiratory rate is 20, O2 saturation is 92%. The JVD appears elevated. Chest exam reveals diminished air entry. The crackles have improved. Heart exam reveals first and second heart sounds and a systolic murmur at the apex. Abdomen appears distended with mild tenderness. Examination of extremities reveals edema involving both lower extremities that is improved since yesterday and bilateral upper extremity edema. LABS: Labs show a white cell count of 21, hemoglobin of 10, platelet count is 50. Potassium is 2.9. BUN is 52, creatinine is 1.2. ASSESSMENT: 1. Acute exacerbation of chronic systolic heart failure, possible sepsis, possible bowel ischemia. 2. Persistent atrial fibrillation. 3. Thrombocytopenia. 4. Elevated white cell count. PLAN: Continue dobutamine, Lasix drips. Continue with metoprolol. Continue IV antibiotics. Prognosis is guarded. MMODL / IJN: [id number] /
[2020-04-29] MEDS ORDERED: ROCURONIUM 10 MG/ML (5 ML VIAL) IV ONE (11:10)
[2020-04-29] MEDS ORDERED: DOBUTamine 250 MG/20 ML VIAL IV ONE (11:10)
[2020-04-29] MEDS ORDERED: ETOMIDATE 2 MG/ML 10 ML VIAL ONE (11:10)
[2020-04-29] MEDS ORDERED: fentaNYL (PF) 50 MCG/ML 2 ML AMP ONE (11:10)
[2020-04-29] MEDS ORDERED: SUCCINYLCHOLINE CHLORIDE 100 MG/5 ML SYR IV ONE (11:10)
[2020-04-29] MEDS ORDERED: .MORPHINE SULFATE (INJ) 10 MG/ML SYRINGE ONE (11:10)
[2020-04-29] MEDS ORDERED: PHENYLEPHRINE-0.9% NACL SYG 1,000 MCG/10 ML SYRINGE ONE (11:10)
[2020-04-29] MEDS ORDERED: IV FLUID CONTINUATION 400 ML IV ONE ×2 (11:15)
[2020-04-29] MEDS ORDERED: propofoL 50 ML IV ONE (11:25)
[2020-04-29] MEDS ORDERED: BUPIVACAIN-EPI 0.5%-1:200,000 30 ML VIAL SQ ONE (11:45)
--- NOTE | 2020-04-29 12:24 | P.OP ---
Date of Procedure: 04/29/20 Preoperative Diagnosis: Cholecystitis Postoperative Diagnosis: Cholecystitis Procedure(s) Performed: Laparoscopic cholecystectomy Anesthesia: CHIP Surgeon: Jr Farah Estimated Blood Loss (ml): 5 Pathology: other (Gallbladder) Condition: stable Disposition: PACU Description of Procedure: The patient was placed on the operating table. The patient received a general endotracheal tube anesthesia. The patients abdomen was prepped and draped in the usual sterile fashion. Through an infraumbilical stab incision, the fascia of the anterior abdominal wall was grasped with a pair of Kochers and then the Veress needle was placed in the peritoneal cavity. Position of the Veress needle was confirmed with positive drop test. The abdomen was then insufflated. After adequate insufflation, the 10 mm trocar was placed in the peritoneal cavity. Following this the laparoscope was placed in the peritoneal cavity. The patient was placed in the head-up, right side up position and then a 5 mm trocar was placed in the right lateral and right subcostal position under direct visualization. A 8 mm trocar was placed in the epigastric position. The gallbladder was grasped in the fundus and infundibulum. Traction on the gallbladder was placed in the lateral and the cephalad positions. The triangle of Calot was visualized.. The cystic duct was bluntly dissected until the union of the cystic duct and common bile duct was seen. A critical view of safety was achieved. The cystic duct was then divided and sealed with the Harmonic scissors. A PDS Endoloop was then placed throughout the cystic duct stump. The cystic artery divided and sealed with the Harmonic scissors. The gallbladder was then removed from the liver bed using Harmonic scissors. The gallbladder was then extracted through the epigastric port site. Operative field was checked for any bleeding spots and Harmonic scissors was used to coagulate the liver bed. The abdomen was irrigated. At this point the bowel was examined. The stomach appeared viable. There is no obvious ischemia of the small bowel. The cecum and transverse colon appeared normal. Visualized sigmoid colon appeared normal. At this point The trocars were removed. The skin was closed using interrupted 3-0 Vicryl suture. Dermabond dressing were applied. The patient tolerated the procedure well.
[2020-04-29] MEDS ORDERED: NOREPINEPHRIN 4 MG-0.9% NS PMX 4 MG/250 ML ML IV ONE (12:33)
[2020-04-29] MEDS ORDERED: SODIUM CHLORIDE 0.9% 500 ML 500 ML IV ONE (12:43)
[2020-04-29 13:09] LABS: ABG Base Excess -4.2 mmol/L; ABG HCO3 24 mmol/L (21-25); ABG Oxygen Saturation 89.8 % (94-97); ABG PCO2 63 mmHg (35-45); ABG PO2 76 mmHg (83-108); ABG TCO2 26 mmol/L (19-24)
[2020-04-29 13:11] LABS: ABG PH 7.19 (7.35-7.45)
[2020-04-29] MEDS: NOREPINEPHRINE 8 MG in SODIUM CHLORIDE 0.9% 250 ML IV SCH ×3 (13:48→20:53)
[2020-04-29] MEDS: SODIUM CHLORIDE 0.9% 1,000 ML IV ONE ×2 (13:50→15:15)
--- NOTE | 2020-04-29 13:52 | XR ---
EXAMINATION TYPE: XR chest 1V portable DATE OF EXAM: 04/29/2020 COMPARISON: 04/29/2020 INDICATION: Post intubation TECHNIQUE: Single frontal view of the chest is obtained. FINDINGS: The heart size is normal. The pulmonary vasculature is prominent. Diffuse opacities through the bilateral lung coleman. A loculated effusion on the right is likely pres ent. Findings appear similar from comparison Endotracheal tube tip is above the [place]. Nasogastric tube transverses the thorax. Pacemaker overlie s left chest. Left central venous catheter has its tip in superior vena cava region. No pneumothorax is evident. Ap ical bulla may be present. IMPRESSION: 1. Diffuse bilateral lung infiltrates can be compatible with pulmonary edema or atypical pneumonia. 2. Lines and catheters discussed above.
[2020-04-29 14:20] LABS: Glucose,Whole Blood 161 mg/dL (75-99)
[2020-04-29 15:02] LABS: ABG Base Excess -2.8 mmol/L; ABG HCO3 24 mmol/L (21-25); ABG Oxygen Saturation 98.9 % (94-97); ABG PCO2 55 mmHg (35-45); ABG PH 7.25 (7.35-7.45); ABG PO2 132 mmHg (83-108); ABG TCO2 26 mmol/L (19-24)
[2020-04-29] MEDS ORDERED: SODIUM CHLORIDE 0.9% 1,000 ML IV ONE ×2 (15:18→15:19)
--- NOTE | 2020-04-29 15:36 | PN ---
PROGRESS NOTE Patient is seen for followup for acute kidney injury, mostly cardiorenal. Patient is maintained on dobutamine drip and Lasix drip. He has had good urine output. However, he continues to have an elevated white count and abdominal tenderness and is going to OR today for further evaluation of intraabdominal source of infection. PHYSICAL EXAMINATION: Patient is awake. He is maintained on BiPAP. Blood pressure this morning was 97/70. He is afebrile. Heart rate about 110 per minute. Exam shows patient is awake. He continues to have edema in his lower extremities. He is being taken down to the OR. [employer] exam is grossly intact; patient moving all 4 extremities. LABS: Sodium of 147, potassium 2.9, chloride 110, BUN 52, creatinine 1.24. Lactic acid 2.4. ASSESSMENT: 1. Acute kidney injury, mostly cardiorenal, currently nonoliguric, maintained on dobutamine and Lasix drip with good urine output, although patient is still not in negative balance. 2. Hypokalemia secondary to diuresis, being replaced. 3. Mild hypernatremia. TPN will need to be adjusted. 4. Congestive heart failure, acute on top of chronic, mostly systolic. 5. Cardiomyopathy, ejection fraction 35%. 6. Sepsis with intraabdominal source; cholecystitis versus enteritis, being taken to OR today. PLAN: Continue with the Lasix drip. TPN will need to be adjusted depending on repeat labs later on today. In regard to the hypernatremia, we need to decrease the sodium in the TPN and reassess volume status, depending on hemodynamics post surgery and intubation. MMODL / IJN: [id number] /
[2020-04-29 16:13] LABS: Anisocytosis Moderate; HCT 33.6 % (39.0-53.0); HGB 10.3 gm/dL (13.0-17.5); Hypochromasia Marked; MCHC 30.7 g/dL (31.0-37.0); Mean Platelet Volume 9.7; Poikilocytosis Slight; RBC 3.82 m/uL (4.30-5.90); RDW 21.7 % (11.5-15.5); WBC 35.5 k/uL (3.8-10.6)
[2020-04-29 16:24] LABS: Platelet Count 139 k/uL (150-450)
--- NOTE | 2020-04-29 17:12 | PN ---
PROGRESS NOTE DATE OF SERVICE: 04/29/2020 REASON FOR FOLLOWUP: Cholecystitis, enteritis and a question of pneumonia. INTERVAL HISTORY: The patient was taken to the OR. This patient is status post laparoscopic cholecystectomy. Patient is currently in the ICU on the vent. The patient remains hypothermic, requiring warming blanket, and is hypotensive, requiring pressor support. No significant purulent secretions through the ET or any diarrhea reported by the nursing staff. PHYSICAL EXAMINATION: Blood pressure 99/59 with a pulse of 123, temperature of 96.4. She is 98% on 80% FiO2. General description is an elderly male lying in bed in no distress. RESPIRATORY SYSTEM: Unlabored breathing. Clear to auscultation anteriorly. HEART: S1, S2. Regular rate and rhythm. ABDOMEN: Soft. No guarding or rigidity or any distention. LABS: Hemoglobin is 10.8, white count 21.7, BUN of 2, creatinine 1.24. DIAGNOSTIC IMPRESSION AND PLAN: Patient with with concern for an abdominal source in this patient who is status post laparoscopic cholecystectomy with possible acute respiratory distress syndrome pattern with diffuse infiltrate bilaterally. Patient is covered with meropenem. Flagyl yesterday for pneumonia. Sputum culture has been requested. Family at the bedside. Questions were answered. MMODL / IJN: [id number] /
[2020-04-29] MEDS: SODIUM CHLORIDE 0.9% 50 ML with VASOPRESSIN 20 UNIT IVPB SCH ×4 (17:15→22:56)
[2020-04-29 17:34] LABS: Glucose,Whole Blood 173 mg/dL (75-99)
[2020-04-29] MEDS: [UNRECOGNIZED DRUG - REMARK] IV SCH ×7 (17:51)
[2020-04-29 17:57] LABS: Calcium 7.3 mg/dL (8.4-10.2); Potassium 3.9 mmol/L (3.5-5.1)
[2020-04-29] MEDS ORDERED: 1: MVI, ADULT NO.4 WITH VIT K 10 ML, TRACE (CONC-1ML/DOSE) 1 ML in AMINO ACID 5%-D20W+LY IV SCH ×3 (18:00)
[2020-04-29] MEDS ORDERED: FUROSEMIDE 10 MG/ML 10 ML VIAL IV STA (19:27)
[2020-04-29] MEDS: CHLORHEXIDINE GLUCONATE 15 ML CUP MUCOUS MEM SCH (21:09)
[2020-04-29] MEDS: bisacodyL 10 MG SUPP RECTAL SCH (21:10)
[2020-04-29] MEDS: NOREPINEPHRINE 32 MG in SODIUM CHLORIDE 0.9% 218 ML IV SCH (23:57)
[2020-04-30] MEDS: MEROPENEM 1 GM in SODIUM CHLORIDE 0.9% 100 ML IVPB SCH ×3 (00:02→16:30)
[2020-04-30 00:09] LABS: Glucose,Whole Blood 320 mg/dL (75-99)
[2020-04-30] MEDS: INSULIN ASPART (NovoLOG) 100 UNIT/ML VIAL SQ SCH ×4 (00:10→19:25)
[2020-04-30 04:30] LABS: Anisocytosis Moderate; HCT 38.9 % (39.0-53.0); Hypochromasia Marked; MCH 26.2 pg (25.0-35.0); MCHC 28.4 g/dL (31.0-37.0); MCV 92.2 fL (80.0-100.0); Macrocytosis Slight; Mean Platelet Volume 10.9; Platelet Count 119 k/uL (150-450); Poikilocytosis Slight; RBC 4.22 m/uL (4.30-5.90); RDW 21.9 % (11.5-15.5)
[2020-04-30 04:32] LABS: Albumin 2.2 g/dL (3.5-5.0); Calcium 7.8 mg/dL (8.4-10.2); Magnesium 2.1 mg/dL (1.6-2.3); Phosphorus 6.4 mg/dL (2.5-4.5); Potassium 4.9 mmol/L (3.5-5.1); Total Bilirubin 4.3 mg/dL (0.2-1.3); Total Protein 5.1 g/dL (6.3-8.2)
[2020-04-30 04:51] LABS: Anisocytosis (M) Present; Band Neutrophils % 8 %; Lymphocytes # (M) 0.63 k/uL (1.0-4.8); Metamyelocytes # (M) 0.32 k/uL (0); Metamyelocytes % 1 %; Monocytes # (M) 0.95 k/uL (0-1.0); Myelocytes # (M) 0.63 k/uL (0); Myelocytes % 2 %; Neutrophils % (M) 85 %; Nucleated Red Blood Cells 16 /100 WBC (0-0); Poikilocytosis (M) Present; Polychromasia Present; Target Cells Present; Total Cells Counted 200; WBC 31.7 k/uL (3.8-10.6)
[2020-04-30 04:52] LABS: Crenated RBC Present
[2020-04-30] MEDS: SODIUM CHLORIDE 0.9% 500 ML 500 ML IV SCH (05:36)
[2020-04-30 05:48] LABS: Glucose,Whole Blood 397 mg/dL (75-99)
[2020-04-30 05:51] LABS: ABG Base Excess -8.6 mmol/L; ABG HCO3 21 mmol/L (21-25); ABG Oxygen Saturation 94.8 % (94-97); ABG PCO2 62 mmHg (35-45); ABG PO2 87 mmHg (83-108); ABG TCO2 23 mmol/L (19-24); Allen Test Performed? Yes
[2020-04-30 05:54] LABS: ABG PH 7.13 (7.35-7.45)
[2020-04-30] MEDS: MIDODRINE 5 MG TAB PO SCH ×3 (06:45→18:13)
[2020-04-30] MEDS: [UNRECOGNIZED DRUG - REMARK] IV SCH ×14 (06:46→20:00)
[2020-04-30] MEDS: NOREPINEPHRINE 32 MG in SODIUM CHLORIDE 0.9% 218 ML IV SCH ×3 (07:17→16:44)
--- NOTE | 2020-04-30 07:50 | XR ---
EXAMINATION TYPE: XR chest 1V portable DATE OF EXAM: 04/30/2020 Comparison: 04/29/2020 Clinical History: 70 year-old male Tube placement Findings: ET tube is satisfactory. NG tube courses below the diaphragm. Left PICC tip at the mid SVC level. It may have been pulled back slightly. Left CVC tip at the cavoatrial junction. An intra-aortic device r edemonstrated at the mid to lower descending thoracic aorta. Heart remains borderline in size. Contin ued biapical blebs and diffuse confluent interstitial opacities. Moderate right effusion. Left anteri or chest wall AICD generator with right ventricular lead. Impression: Continued diffuse bilateral pulmonary edema. Continued moderate right effusion with adjacent atelecta sis and or consolidation. Biapical blebs.
[2020-04-30] MEDS ORDERED: FUROSEMIDE 10 MG/ML 10 ML VIAL IV STA (08:16)
[2020-04-30] MEDS: metroNIDAZOLE-NS PMX 500 MG in SALINE 1 100ML.BAG IVPB SCH ×3 (08:31→22:52)
[2020-04-30] MEDS: PANTOPRAZOLE 40 MG/10 ML VIAL IV SCH (08:31)
[2020-04-30] MEDS: CHLORHEXIDINE GLUCONATE 15 ML CUP MUCOUS MEM SCH ×2 (08:31→21:08)
[2020-04-30] MEDS: methylPREDNISolone SOD SUCCI 40 MG/ML 1 ML VIAL IV SCH ×2 (08:31→16:23)
[2020-04-30] MEDS: METOPROLOL SUCCINATE (ER) 25 MG TAB.ER.24H PO SCH (08:31)
--- NOTE | 2020-04-30 08:40 | P.PN ---
Subjective patient is seen in follow-up for acute kidney injury. Renal function worse. Oliguric. Receiving TPN. Underwent laparoscopic cholecystectomy on April 29. Off dobutamine and Lasix at this time. Maintained on high-dose Levophed as well as vasopressin. 100% FiO2. Vital signs: blood pressure stable on vasopressor support. Tachycardic. General: The patient appeared well nourished and normally developed. HEENT: Head exam is unremarkable. intubated. LUNGS: Breath sounds decreased. HEART: tachycardic. ABDOMEN: soft, no gross distention noted. EXTREMITITES: 1+ edema. Objective - Vital Signs Vital signs: Vital Signs Temp 98.6 F 04/30/20 04:00 Pulse 112 H 04/30/20 07:00 Resp 26 H 04/30/20 07:00 BP 100/67 04/30/20 07:00 Pulse Ox 95 04/30/20 08:18 Intake & Output 04/29/20 04/30/20 04/30/20 18:59 06:59 18:59 Intake Total 5457.360 1888.142 118.408 Output Total 705 20 0 Balance 4752.360 1868.142 118.408 Weight 72.2 kg 76.6 kg Intake: IV 4521 1566 106 Fat Emulsion 20% 250 ml 189 84 In Empty Bag 1 bag @ 21 mls/hr IV MoWeFr [facility] Rx#: [id number] Meropenem 1 gm In Sodium 100 200 Chloride 0.9% 100 ml @ 33 .3 mls/hr IVPB Q8HR [facility] Rx#:[id number] Mvi, Adult No.4 with Vit 330 K 10 ml Trace (Conc-1Ml/ Dose) 1 ml In Amino Acid 5%-D20w+Lytes*E* 1,000 ml @ 30 mls/hr IV .Q24H [facility] Rx#:[id number] Mvi, Adult No.4 with Vit 80 960 80 K 10 ml Trace (Conc-1Ml/ Dose) 1 ml Potassium Acetate 30 meq Potassium Phosphate 15 mmol Magnesium Sulfate gm 1 gm Calcium Gluconate 1 gm In Amino Acids 5 %/ Dextrose 20 % 1,000 ml @ 80 mls/hr IV .BY DURATION [facility] Rx#:[id number] Potassium Chloride 20 meq 200 In Water For Injection 1 100ml.bag @ 50 mls/hr IVPB Q2H [facility] Rx#: [id number] Pressure bags 72 72 6 Sodium Chloride 0.9% 1, 3000 000 ml @ 999 mls/hr IV . Q1H1M [facility] Rx#:[id number] Sodium Chloride 0.9% 500 50 150 20 ml 500 ml @ 20 mls/hr IV .Q24H [facility] Rx#:[id number] metroNIDAZOLE-NS PMX 500 100 100 mg In Saline 1 100ml.bag @ 100 mls/hr IVPB Q8HR [facility] Rx#:[id number] Intake, IV Titration 582.360 322.142 12.408 Amount Furosemide 100 mg In 59.333 Sodium Chloride 0.9% 90 ml @ 5 MG/HR 5 mls/hr IV .Q20H [facility] Rx#:[id number] Meropenem 1 gm In Sodium 100 Chloride 0.9% 100 ml @ 33 .3 mls/hr IVPB Q8HR [facility] Rx#:[id number] Norepinephrine 32 mg In 12.408 Sodium Chloride 0.9% 218 ml @ 0.05 MCG/KG/MIN 1. 692 mls/hr IV .Q24H [facility] Rx#:[id number] Norepinephrine 8 mg In 293.858 222.142 Sodium Chloride 0.9% 250 ml @ 0.05 MCG/KG/MIN 6. 985 mls/hr IV .Q24H [facility] Rx#:[id number] Potassium Chloride 20 meq 100 In Water For Injection 1 100ml.bag @ 50 mls/hr IVPB Q2H [facility] Rx#: [id number] propofoL 500 mg In Empty 29.169 100 Bag 1 bag @ Titrate IV . Q0M [facility] Rx#:[id number] Oral 50 Blood Product 304 Platelet Pheresis Acda2 304 Unit [id number] Output: Urine 685 20 0 Estimated Blood Loss 20 Other: Voiding Method Indwelling Catheter Indwelling Catheter ABP, PAP, CO, CI - Last Documented Arterial Blood Pressure 108/66 - Labs CBC & Chem 7: 04/30/20 03:55 04/30/20 03:55 Labs: Abnormal Lab Results - Last 24 Hours (Table) 04/29/20 04/29/20 04/29/20 Range/Units 10:50 13:06 14:17 WBC (3.8-10.6) k/uL RBC (4.30-5.90) m/uL Hgb (13.0-17.5) gm/dL Hct (39.0-53.0) % MCHC (31.0-37.0) g/dL RDW (11.5-15.5) % Plt Count (150-450) k/uL Neutrophils # (Manual) (1.3-7.7) k/uL Lymphocytes # (Manual) (1.0-4.8) k/uL Metamyelocytes # (Man) (0) k/uL Myelocytes # (Manual) (0) k/uL Nucleated RBCs (0-0) /100 WBC ABG pH 7.19 L* (7.35-7.45) ABG pCO2 63 H (35-45) mmHg ABG pO2 76 L (83-108) mmHg ABG Total CO2 26 H (19-24) mmol/L ABG O2 Saturation 89.8 L (94-97) % Sodium (137-145) mmol/L Chloride (98-107) mmol/L Carbon Dioxide (22-30) mmol/L BUN (9-20) mg/dL Creatinine (0.66-1.25) mg/dL Glucose (74-99) mg/dL POC Glucose (mg/dL) 161 H (75-99) mg/dL Plasma Lactic Acid Geoff 2.4 H* (0.7-2.0) mmol/L Calcium (8.4-10.2) mg/dL Phosphorus (2.5-4.5) mg/dL Total Bilirubin (0.2-1.3) mg/dL AST (17-59) U/L Alkaline Phosphatase (38-126) U/L Total Protein (6.3-8.2) g/dL Albumin (3.5-5.0) g/dL 04/29/20 04/29/20 04/29/20 Range/Units 14:57 16:00 16:00 WBC 35.5 H (3.8-10.6) k/uL RBC 3.82 L (4.30-5.90) m/uL Hgb 10.3 L (13.0-17.5) gm/dL Hct 33.6 L (39.0-53.0) % MCHC 30.7 L (31.0-37.0) g/dL RDW 21.7 H (11.5-15.5) % Plt Count 139 L D (150-450) k/uL Neutrophils # (Manual) (1.3-7.7) k/uL Lymphocytes # (Manual) (1.0-4.8) k/uL Metamyelocytes # (Man) (0) k/uL Myelocytes # (Manual) (0) k/uL Nucleated RBCs (0-0) /100 WBC ABG pH 7.25 L (7.35-7.45) ABG pCO2 55 H (35-45) mmHg ABG pO2 132 H (83-108) mmHg ABG Total CO2 26 H (19-24) mmol/L ABG O2 Saturation 98.9 H (94-97) % Sodium 147 H (137-145) mmol/L Chloride 115 H (98-107) mmol/L Carbon Dioxide (22-30) mmol/L BUN 49 H (9-20) mg/dL Creatinine 1.33 H (0.66-1.25) mg/dL Glucose 208 H (74-99) mg/dL POC Glucose (mg/dL) (75-99) mg/dL Plasma Lactic Acid Geoff (0.7-2.0) mmol/L Calcium 7.3 L (8.4-10.2) mg/dL Phosphorus (2.5-4.5) mg/dL Total Bilirubin (0.2-1.3) mg/dL AST (17-59) U/L Alkaline Phosphatase (38-126) U/L Total Protein (6.3-8.2) g/dL Albumin (3.5-5.0) g/dL 04/29/20 04/29/20 04/29/20 Range/Units 16:45 17:32 19:20 WBC (3.8-10.6) k/uL RBC (4.30-5.90) m/uL Hgb (13.0-17.5) gm/dL Hct (39.0-53.0) % MCHC (31.0-37.0) g/dL RDW (11.5-15.5) % Plt Count (150-450) k/uL Neutrophils # (Manual) (1.3-7.7) k/uL Lymphocytes # (Manual) (1.0-4.8) k/uL Metamyelocytes # (Man) (0) k/uL Myelocytes # (Manual) (0) k/uL Nucleated RBCs (0-0) /100 WBC ABG pH (7.35-7.45) ABG pCO2 (35-45) mmHg ABG pO2 (83-108) mmHg ABG Total CO2 (19-24) mmol/L ABG O2 Saturation (94-97) % Sodium (137-145) mmol/L Chloride (98-107) mmol/L Carbon Dioxide (22-30) mmol/L BUN (9-20) mg/dL Creatinine (0.66-1.25) mg/dL Glucose (74-99) mg/dL POC Glucose (mg/dL) 173 H (75-99) mg/dL Plasma Lactic Acid Geoff 4.2 H* 6.0 H* (0.7-2.0) mmol/L Calcium (8.4-10.2) mg/dL Phosphorus (2.5-4.5) mg/dL Total Bilirubin (0.2-1.3) mg/dL AST (17-59) U/L Alkaline Phosphatase (38-126) U/L Total Protein (6.3-8.2) g/dL Albumin (3.5-5.0) g/dL 04/29/20 04/30/20 04/30/20 Range/Units 21:50 00:07 00:40 WBC (3.8-10.6) k/uL RBC (4.30-5.90) m/uL Hgb (13.0-17.5) gm/dL Hct (39.0-53.0) % MCHC (31.0-37.0) g/dL RDW (11.5-15.5) % Plt Count (150-450) k/uL Neutrophils # (Manual) (1.3-7.7) k/uL Lymphocytes # (Manual) (1.0-4.8) k/uL Metamyelocytes # (Man) (0) k/uL Myelocytes # (Manual) (0) k/uL Nucleated RBCs (0-0) /100 WBC ABG pH (7.35-7.45) ABG pCO2 (35-45) mmHg ABG pO2 (83-108) mmHg ABG Total CO2 (19-24) mmol/L ABG O2 Saturation (94-97) % Sodium (137-145) mmol/L Chloride (98-107) mmol/L Carbon Dioxide (22-30) mmol/L BUN (9-20) mg/dL Creatinine (0.66-1.25) mg/dL Glucose (74-99) mg/dL POC Glucose (mg/dL) 320 H (75-99) mg/dL Plasma Lactic Acid Geoff 6.8 H* 6.2 H* (0.7-2.0) mmol/L Calcium (8.4-10.2) mg/dL Phosphorus (2.5-4.5) mg/dL Total Bilirubin (0.2-1.3) mg/dL AST (17-59) U/L Alkaline Phosphatase (38-126) U/L Total Protein (6.3-8.2) g/dL Albumin (3.5-5.0) g/dL 04/30/20 04/30/20 04/30/20 Range/Units 03:55 03:55 03:55 WBC 31.7 H (3.8-10.6) k/uL RBC 4.22 L (4.30-5.90) m/uL Hgb 11.0 L (13.0-17.5) gm/dL Hct 38.9 L (39.0-53.0) % MCHC 28.4 L (31.0-37.0) g/dL RDW 21.9 H (11.5-15.5) % Plt Count 119 L (150-450) k/uL Neutrophils # (Manual) 29.40 H (1.3-7.7) k/uL Lymphocytes # (Manual) 0.63 L (1.0-4.8) k/uL Metamyelocytes # (Man) 0.32 H (0) k/uL Myelocytes # (Manual) 0.63 H (0) k/uL Nucleated RBCs 16 H (0-0) /100 WBC ABG pH (7.35-7.45) ABG pCO2 (35-45) mmHg ABG pO2 (83-108) mmHg ABG Total CO2 (19-24) mmol/L ABG O2 Saturation (94-97) % Sodium (137-145) mmol/L Chloride 112 H (98-107) mmol/L Carbon Dioxide 21 L (22-30) mmol/L BUN 56 H (9-20) mg/dL Creatinine 1.78 H (0.66-1.25) mg/dL Glucose 406 H (74-99) mg/dL POC Glucose (mg/dL) (75-99) mg/dL Plasma Lactic Acid Geoff 5.0 H* (0.7-2.0) mmol/L Calcium 7.8 L (8.4-10.2) mg/dL Phosphorus 6.4 H (2.5-4.5) mg/dL Total Bilirubin 4.3 H (0.2-1.3) mg/dL AST 104 H (17-59) U/L Alkaline Phosphatase 146 H (38-126) U/L Total Protein 5.1 L (6.3-8.2) g/dL Albumin 2.2 L (3.5-5.0) g/dL 04/30/20 04/30/20 04/30/20 Range/Units 05:45 05:47 07:10 WBC (3.8-10.6) k/uL RBC (4.30-5.90) m/uL Hgb (13.0-17.5) gm/dL Hct (39.0-53.0) % MCHC (31.0-37.0) g/dL RDW (11.5-15.5) % Plt Count (150-450) k/uL Neutrophils # (Manual) (1.3-7.7) k/uL Lymphocytes # (Manual) (1.0-4.8) k/uL Metamyelocytes # (Man) (0) k/uL Myelocytes # (Manual) (0) k/uL Nucleated RBCs (0-0) /100 WBC ABG pH 7.13 L* (7.35-7.45) ABG pCO2 62 H (35-45) mmHg ABG pO2 (83-108) mmHg ABG Total CO2 (19-24) mmol/L ABG O2 Saturation (94-97) % Sodium (137-145) mmol/L Chloride (98-107) mmol/L Carbon Dioxide (22-30) mmol/L BUN (9-20) mg/dL Creatinine (0.66-1.25) mg/dL Glucose (74-99) mg/dL POC Glucose (mg/dL) 397 H (75-99) mg/dL Plasma Lactic Acid Geoff 4.1 H* (0.7-2.0) mmol/L Calcium (8.4-10.2) mg/dL Phosphorus (2.5-4.5) mg/dL Total Bilirubin (0.2-1.3) mg/dL AST (17-59) U/L Alkaline Phosphatase (38-126) U/L Total Protein (6.3-8.2) g/dL Albumin (3.5-5.0) g/dL Microbiology - Last 24 Hours (Table) 04/29/20 17:51 Gram Stain - Preliminary Sputum Sputum Culture - Preliminary 04/27/20 09:50 Blood Culture - Preliminary Blood No Growth after 48 hours Assessment and Plan Plan: assessment: 1. Acute kidney injury secondary to ATN secondary to hypotension/shock as well as cardiorenal syndrome. Creatinine 1.78 today. Oliguric. 2. Acute on chronic systolic CHF with ejection fraction of 35%. 3. Septic shock secondary to likely intra-abdominal source/cholecystitis status post cholecystectomy April 29. Maintained on vasopressin and Levophed. 4. Volume overload. 5. Hyperphosphatemia secondary to acute kidney injury. 6. Hypernatremia from lack of water intake and TPN. Better. plan: Lasix 80 mg IV once today. Deferred dobutamine to cardiology. Wean FiO2 and vasopressors. Monitor phos; will add binder if not improving. repeat BMP this evening. Continue to monitor renal function and urine output closely. Continue to assess daily for need for renal replacement therapy. Patient is currently hemodynamically unstable with tachycardia and also requiring high-dose vasopressor support at this time.
[2020-04-30] MEDS ORDERED: DOBUTamine DRIP 500 MG in DEXTROSE/WATER 1 250ML.BAG IV SCH (10:00)
[2020-04-30 10:26] LABS: ABG Base Excess -7.5 mmol/L; ABG HCO3 21 mmol/L (21-25); ABG Oxygen Saturation 97.6 % (94-97); ABG PCO2 55 mmHg (35-45); ABG PH 7.19 (7.35-7.45); ABG PO2 105 mmHg (83-108); ABG TCO2 22 mmol/L (19-24)
--- NOTE | 2020-04-30 10:29 | P.PN ---
Subjective Progress Note Date: 04/30/20 This is a 70-year-old male who presented to the emergency department on April 17, at 1020 in the morning. The patient's complaints include primarily chest and abdominal pain. It began the night prior about 12 hours earlier. It's sharp constant consistent pain in the lower right chest area and right upper abdominal area. He denied any nausea, vomiting, or diarrhea. The patient was recently inpatient for pulmonary edema and ascites. The patient was evaluated and discovered to have acute cholecystitis. The patient was to have surgery but the sodium was low and so the surgery was canceled. Then, the patient was hypotensive, and hypothermic. In addition, his lactic acid had risen to above 12. For that reason, the patient was admitted to the intensive care unit for further evaluation and management. The patient's white count jumped up to 31.7, hemoglobin 11.7, hematocrit 37.5, and platelet count was normal. Sodium was 130, potassium 5.7, chloride 73, CO2 11, anion gap was 26, a nd BUN and creatinine were 44 and 2.64. These labs are consistent with a anion gap metabolic acidosis, secondary to renal failure and lactic acidemia. The patient's AST was 544, ALT 144, and alkaline phosphatase was 205. Bilirubin was elevated at 3.0. Chest x-ray today showed bilateral areas of atelectasis, pneumonia, edema, and effusions. CT of the abdomen and pelvis revealed evidence of moderate acute enteritis involving the duodenum and proximal jejunum, bilateral lower pleural effusions, and associated compressive atelectasis. The patient was only started on antibiotics. He was given left internal jugular triple-lumen catheter, and a left radial art line. His current antibiotic is Zosyn and flagyl. An NG tube in place. He continued to have abdominal pain. Tends to localize in the right upper quadrant. It is diffuse as well though. On today's evaluation of 04/25/2020, the patient is being seen for a follow-up. He is having mild abdominal pain which is improved compared to yesterday. No fever. White cell count is at 21.4. Hemoglobin is at 11.5. He has 87% neutr ophilia. On his electrolytes, sodium level is at 146 with a serum bicarb of 31 and a creatinine of 1.4 which is improved compared to yesterday when his creatinine was at 1.9. His bilirubin is at 4.6 with an AST of 125 and ALT of 76 both liver function tests are improving and the bilirubin is essentially slightly higher compared to yesterday. His alkaline phosphatase is stable at 183. His lactic acidosis high as 12 and is down to 1.4. The patient remains on antibiotic coverage utilizing a combination of Zosyn and Flagyl. He has history of chronic atrial fibrillation current rhythm is sinus and the patient is not receiving any form of anticoagulation for now. On 04/26/2019 100 mL the patient for the follow-up is awake and alert. The plan is to proceed with cholecystectomy today. Terms of his abdomen, the patient's abdomen is nontender and is soft and he has positive bowel sounds. He is not having any nausea or emesis. The patient is scheduled to undergo a cholecystectomy noontime today. He is currently nothing by mouth. He remains in atrial fibrillation. He was given IV heparin yesterday and heparin and to be discontinued as the patient's been reviewed was coming back supratherapeutic. Currently is off anticoagulation. My plan is to keep him off anticoagulation for the cholecystectomy and ultimately the patient will be switched to oral anticoagulation following his surgery. He remains on a combination of Zosyn and Flagyl. No bowel movement activity yet. No abdominal distention. No fever. No chills. Urine output was slightly diminished earlier this morning and the patient was given 1 L of normal saline. White cell count is down to 19.7 with a hemoglobin of 11. These electrodes are still pending for now. No altered mentation. No signs of any decompensated heart failure On 04/27/2019, I'm seeing the patient for a follow-up. Unfortunately, since yesterday afternoon, that it been some decompensation the patient's pulmonary status. The patient became progressively more hypoxic. He was placed on oxygen at 15 L high flow. A repeat chest x-ray was done and the patient was an obvious pulmonary edema. At that point, he was given Lasix. His initial response was minimal. Subsequently he was started on dobutamine at 2.5 g per KG per minute. He started making better urine output. He was given a total of 60 mg IV push Lasix and later on he was given additional 40 mg IV push. Current urine output is in order of 50 mL an hour. He is started on oxygen at 15 L. Chest x-ray continues to be abnormal with pulmonary edema and the patient's crackling on both sides of his lungs. He has positive JVDs. His cardiac rhythm is irregular consistent with atrial fibrillation with a bundle-branch block pattern. He remains on IV heparin. Earlier this morning, he started again to have diffuse abdominal pain. He was maintained on a combination of Zosyn and Flagyl. No diarrhea. No abdominal distention. He was given Dilaudid and his pain is under better control for now. He has adequate pulses in lower extremities bilaterally although they're diminished. He is lethargic but arousable. He with follows some simple commands. His family was at the bedside yesterday and we had a lengthy discussion about his status and prognosis which is obviously poor. The patient was scheduled to undergo a cholecystectomy. However, based on his li mited and borderline condition, the surgery has been postponed. For now, the white cell count is down to 15.8 from 19.7. Hemoglobin is at 10.5 mile his platelets have dropped down to 76, his. He is therapeutic at 61, his BUN is at 35 with a creatinine of 1.2, glucose is 184, calcium level is at 8.2, AST and ALP are both within normal limits and alkaline phosphatase is at 151 with an albumin level of 2.2. He is afebrile for now. 04/28/2020 I'm seeing the patient for a follow-up. The patient's has been transitioned to a BiPAP and currently is on a BiPAP pressure of 12/6 with an FiO2 of 60%. His chest x-ray showing diffuse bilateral pulmonary infiltrates consistent with pulmonary edema. Possibility of noncardiogenic pulmonary edema cannot be completely excluded. He has a right-sided pleural effusion. No aspiration. He is still on IV Zosyn and Flagyl combination. I started the dmitry eaton on dobutamine yesterday and the dose has been increased up to 5 mg/kg/m. I also started him on Lasix 10 mg an hour. He is making better urine output and the neck fluid balance over the past 24 hours has been aggravated to 86 mL. His weight is up to 71 kg. He is awake. He communicates. He is lethargic. He is on IV heparin. He is in a sinus rhythm with a bundle-branch block pattern. He is on IV heparin. Platelet counts have dropped down to 61. No signs of bleeding. White cell count is up to 20.3. Renal function is also abnormal with a creatinine of 1.3, although comparable to yesterday. Serum bicarb is 28. Potassium is at 3.2. The patient is not having any significant abdominal pain for now. He remains nothing by mouth. He remains on a combination of Zosyn and Flagyl. No diarrhea. No significant abdominal distention. His taken Dilaudid for pain control. 04/29/2020 the patient is being seen for a follow-up. Unfortunately, progress is limited and the patient is still in acute hypoxic respiratory failure with diffuse bilateral pulmonary infiltrates. This morning, the patient is BiPAP dependent at a pressure of 12/6 cm of water with an FiO2 of 60%. His chest x- ray still showing diffuse bilateral pulmonary infiltrates, unchanged and this could be cardiogenic versus noncardiogenic pulmonary edema. His abdomen remains tender and his white cell count is elevated at 21.7 and his pro-calcitonin level is at 3.43. At the same time, his proBNP level is elevated at 9840. The patient is currently lethargic but he is awake and arousable and his communicating. The is BiPAP dependent. Is on dobutamine which is running at 5 mcg/kg per minute and is also on Lasix drip at 10 mg an hour. He is also on TPN running at 30 mL an hour. His net fluid balance over the past 24 hours is -139 mL. His urine output is in the order of 100 mL an hour. His creatinine is stable at 1.24. His potassium level is at 2.9 and the patient's sodium is on the rise as the patient is being diuresed with Lasix and his current sodium is 147. His LFTs has normalized. His AST and ALP are within normal limits, bilirubin is at 3.7, alkaline phosphatase of 142. I had a lengthy discussion with the surgeon. We are considering the possibility of doing a laparoscopic evaluation of his abdomen looking for ischemic bowel and possibly undergoing a cholecystectomy. It is possible that the patient has an abdominal issue with ischemia/bowel ischemia which is preventing his recovery. I'm not seeing much of an improvement over the past 48 hours. 04/30/2020, the patient is being seen in follow-up in the intensive care unit. The patient is doing poorly since yesterday. Note that he was taken to the operating room for a exploratory laparotomy. During surgery, the bowel was healthy and viable and there was no evidence of any bowel ischemia. The patient underwent a laparoscopic cholecystectomy and he was brought back to the intensive care unit. Since then, his condition decompensated. The patient has become progressively more hypotensive and the patient is not producing any urine output. He was given a total of 3 L of IV fluid as bolus. His CVP is up to 21. He was given IV Lasix 80 mg IV push 1. No improvement in the urine output and urine output is currently in the order of 10 mL an hour. He remains in shock state. He is on pressors and pressor requirements have gone up to norepinephrine infusion which is running at 0.66 mcg/kg per minute. He is on sedation with propofol running at 20 mcg/kg per minute. He is also on vasopressin physiologic dose. He is receiving IV antibiotics and he is on broad-spectrum antibiotics with a combination of Merrem and Flagyl. He is intubated on a mechanical ventilator. On today's evaluation, he is on assist control mode at the rate of 32 with a tidal volume of 450 and FiO2 of 100% with a PEEP of 5. The morning blood gases showed a pH of 7.13 with a pCO2 of 62 and pO2 of 87. His chest x-ray from this morning showed diffuse bilateral pulmonary infiltrates. There is a evolving right-sided pleural effusion. He has a defibrillator over the anterior left chest area. He has an ET tube in place. NG tube is also in place. No major changes in his chest x-ray I next. On his blood work, his white cell count is up to 31.7. His platelet count is down to 119. He has developed an acute kidney injury in the creatinine is back up to 1.78 with a mean of 56, lactic acid level peaked at 6.8 and subsequently dropped down to 4.1. He is currently nothing by mouth. He is receiving TPN which is running at the rate of 80 mL an hour. He is in sinus rhythm at the rate of 115. He is well sedated and is calm and comfortable. Objective - Vital Signs Vital signs: Vital Signs Temp 98.6 F 04/30/20 04:00 Pulse 112 H 04/30/20 07:00 Resp 26 H 04/30/20 07:00 BP 100/67 04/30/20 07:00 Pulse Ox 95 04/30/20 08:18 Intake & Output 04/29/20 04/30/20 04/30/20 18:59 06:59 18:59 Intake Total 5457.360 1888.142 118.408 Output Total 705 20 0 Balance 4752.360 1868.142 118.408 Weight 72.2 kg 76.6 kg Intake: IV 4521 1566 106 Fat Emulsion 20% 250 ml 189 84 In Empty Bag 1 bag @ 21 mls/hr IV MoWeFr [facility] Rx#: [id number] Meropenem 1 gm In Sodium 100 200 Chloride 0.9% 100 ml @ 33 .3 mls/hr IVPB Q8HR [facility] Rx#:[id number] Mvi, Adult No.4 with Vit 330 K 10 ml Trace (Conc-1Ml/ Dose) 1 ml In Amino Acid 5%-D20w+Lytes*E* 1,000 ml @ 30 mls/hr IV .Q24H [facility] Rx#:[id number] Mvi, Adult No.4 with Vit 80 960 80 K 10 ml Trace (Conc-1Ml/ Dose) 1 ml Potassium Acetate 30 meq Potassium Phosphate 15 mmol Magnesium Sulfate gm 1 gm Calcium Gluconate 1 gm In Amino Acids 5 %/ Dextrose 20 % 1,000 ml @ 80 mls/hr IV .BY DURATION [facility] Rx#:[id number] Potassium Chloride 20 meq 200 In Water For Injection 1 100ml.bag @ 50 mls/hr IVPB Q2H [facility] Rx#: [id number] Pressure bags 72 72 6 Sodium Chloride 0.9% 1, 3000 000 ml @ 999 mls/hr IV . Q1H1M [facility] Rx#:[id number] Sodium Chloride 0.9% 500 50 150 20 ml 500 ml @ 20 mls/hr IV .Q24H [facility] Rx#:[id number] metroNIDAZOLE-NS PMX 500 100 100 mg In Saline 1 100ml.bag @ 100 mls/hr IVPB Q8HR [facility] Rx#:[id number] Intake, IV Titration 582.360 322.142 12.408 Amount Furosemide 100 mg In 59.333 Sodium Chloride 0.9% 90 ml @ 5 MG/HR 5 mls/hr IV .Q20H [facility] Rx#:[id number] Meropenem 1 gm In Sodium 100 Chloride 0.9% 100 ml @ 33 .3 mls/hr IVPB Q8HR [facility] Rx#:[id number] Norepinephrine 32 mg In 12.408 Sodium Chloride 0.9% 218 ml @ 0.05 MCG/KG/MIN 1. 692 mls/hr IV .Q24H [facility] Rx#:[id number] Norepinephrine 8 mg In 293.858 222.142 Sodium Chloride 0.9% 250 ml @ 0.05 MCG/KG/MIN 6. 985 mls/hr IV .Q24H [facility] Rx#:[id number] Potassium Chloride 20 meq 100 In Water For Injection 1 100ml.bag @ 50 mls/hr IVPB Q2H [facility] Rx#: [id number] propofoL 500 mg In Empty 29.169 100 Bag 1 bag @ Titrate IV . Q0M [facility] Rx#:[id number] Oral 50 Blood Product 304 Platelet Pheresis Acda2 304 Unit [id number] Output: Urine 685 20 0 Estimated Blood Loss 20 Other: Voiding Method Indwelling Catheter Indwelling Catheter ABP, PAP, CO, CI - Last Documented Arterial Blood Pressure 108/66 - Exam Intubated on a mechanical ventilator, sedated, calm and comfortable, symptoms with the mechanical ventilator. Head exam was generally normal. There was no scleral icterus or corneal arcus. Mucous membranes were moist. Neck was supple and without jugular venous distension, thyromegaly, or carotid bruits. Carotids were easily palpable bilaterally. There was no adenopathy. Orogastric and orotracheal tube are both in place. Heart sounds are tachycardic, regular, no murmurs could be appreciated. Pulses are diminished in all 4 extremities and they're palpable. Lungs reveal bilateral rhonchi and lower lobe crackles. Breath sounds equal bilaterally. The patient does have bilateral crackles. Abdominal exam reveals of the bowel sounds are hypoactive. Abdomen is nondistended. All of the surgical wound site is dry clean and intact. Extremities are intact. No cyanosis clubbing or edema. Diminished pulses in the lower extremities bilaterally. Extremities are still warm. Skin is without rash or lesion. Neurologic the patient is sedated and the patient has, comfortable sedated as the mechanical ventilator. Neurologic exam is nonfocal. The patient withdraws to deep painful stimulation of 4 extremities. Pupils are equal and reactive to light. - Labs CBC & Chem 7: 04/30/20 03:55 02/13/21 03:55 Labs: Abnormal Lab Results - Last 24 Hours (Table) 04/29/20 04/29/20 04/29/20 Range/Units 10:50 13:06 14:17 WBC (3.8-10.6) k/uL RBC (4.30-5.90) m/uL Hgb (13.0-17.5) gm/dL Hct (39.0-53.0) % MCHC (31.0-37.0) g/dL RDW (11.5-15.5) % Plt Count (150-450) k/uL Neutrophils # (Manual) (1.3-7.7) k/uL Lymphocytes # (Manual) (1.0-4.8) k/uL Metamyelocytes # (Man) (0) k/uL Myelocytes # (Manual) (0) k/uL Nucleated RBCs (0-0) /100 WBC ABG pH 7.19 L* (7.35-7.45) ABG pCO2 63 H (35-45) mmHg ABG pO2 76 L (83-108) mmHg ABG Total CO2 26 H (19-24) mmol/L ABG O2 Saturation 89.8 L (94-97) % Sodium (137-145) mmol/L Chloride (98-107) mmol/L Carbon Dioxide (22-30) mmol/L BUN (9-20) mg/dL Creatinine (0.66-1.25) mg/dL Glucose (74-99) mg/dL POC Glucose (mg/dL) 161 H (75-99) mg/dL Plasma Lactic Acid Geoff 2.4 H* (0.7-2.0) mmol/L Calcium (8.4-10.2) mg/dL Phosphorus (2.5-4.5) mg/dL Total Bilirubin (0.2-1.3) mg/dL AST (17-59) U/L Alkaline Phosphatase (38-126) U/L Total Protein (6.3-8.2) g/dL Albumin (3.5-5.0) g/dL 04/29/20 04/29/20 04/29/20 Range/Units 14:57 16:00 16:00 WBC 35.5 H (3.8-10.6) k/uL RBC 3.82 L (4.30-5.90) m/uL Hgb 10.3 L (13.0-17.5) gm/dL Hct 33.6 L (39.0-53.0) % MCHC 30.7 L (31.0-37.0) g/dL RDW 21.7 H (11.5-15.5) % Plt Count 139 L D (150-450) k/uL Neutrophils # (Manual) (1.3-7.7) k/uL Lymphocytes # (Manual) (1.0-4.8) k/uL Metamyelocytes # (Man) (0) k/uL Myelocytes # (Manual) (0) k/uL Nucleated RBCs (0-0) /100 WBC ABG pH 7.25 L (7.35-7.45) ABG pCO2 55 H (35-45) mmHg ABG pO2 132 H (83-108) mmHg ABG Total CO2 26 H (19-24) mmol/L ABG O2 Saturation 98.9 H (94-97) % Sodium 147 H (137-145) mmol/L Chloride 115 H (98-107) mmol/L Carbon Dioxide (22-30) mmol/L BUN 49 H (9-20) mg/dL Creatinine 1.33 H (0.66-1.25) mg/dL Glucose 208 H (74-99) mg/dL POC Glucose (mg/dL) (75-99) mg/dL Plasma Lactic Acid Geoff (0.7-2.0) mmol/L Calcium 7.3 L (8.4-10.2) mg/dL Phosphorus (2.5-4.5) mg/dL Total Bilirubin (0.2-1.3) mg/dL AST (17-59) U/L Alkaline Phosphatase (38-126) U/L Total Protein (6.3-8.2) g/dL Albumin (3.5-5.0) g/dL 04/29/20 04/29/20 04/29/20 Range/Units 16:45 17:32 19:20 WBC (3.8-10.6) k/uL RBC (4.30-5.90) m/uL Hgb (13.0-17.5) gm/dL Hct (39.0-53.0) % MCHC (31.0-37.0) g/dL RDW (11.5-15.5) % Plt Count (150-450) k/uL Neutrophils # (Manual) (1.3-7.7) k/uL Lymphocytes # (Manual) (1.0-4.8) k/uL Metamyelocytes # (Man) (0) k/uL Myelocytes # (Manual) (0) k/uL Nucleated RBCs (0-0) /100 WBC ABG pH (7.35-7.45) ABG pCO2 (35-45) mmHg ABG pO2 (83-108) mmHg ABG Total CO2 (19-24) mmol/L ABG O2 Saturation (94-97) % Sodium (137-145) mmol/L Chloride (98-107) mmol/L Carbon Dioxide (22-30) mmol/L BUN (9-20) mg/dL Creatinine (0.66-1.25) mg/dL Glucose (74-99) mg/dL POC Glucose (mg/dL) 173 H (75-99) mg/dL Plasma Lactic Acid Geoff 4.2 H* 6.0 H* (0.7-2.0) mmol/L Calcium (8.4-10.2) mg/dL Phosphorus (2.5-4.5) mg/dL Total Bilirubin (0.2-1.3) mg/dL AST (17-59) U/L Alkaline Phosphatase (38-126) U/L Total Protein (6.3-8.2) g/dL Albumin (3.5-5.0) g/dL 04/29/20 04/30/20 04/30/20 Range/Units 21:50 00:07 00:40 WBC (3.8-10.6) k/uL RBC (4.30-5.90) m/uL Hgb (13.0-17.5) gm/dL Hct (39.0-53.0) % MCHC (31.0-37.0) g/dL RDW (11.5-15.5) % Plt Count (150-450) k/uL Neutrophils # (Manual) (1.3-7.7) k/uL Lymphocytes # (Manual) (1.0-4.8) k/uL Metamyelocytes # (Man) (0) k/uL Myelocytes # (Manual) (0) k/uL Nucleated RBCs (0-0) /100 WBC ABG pH (7.35-7.45) ABG pCO2 (35-45) mmHg ABG pO2 (83-108) mmHg ABG Total CO2 (19-24) mmol/L ABG O2 Saturation (94-97) % Sodium (137-145) mmol/L Chloride (98-107) mmol/L Carbon Dioxide (22-30) mmol/L BUN (9-20) mg/dL Creatinine (0.66-1.25) mg/dL Glucose (74-99) mg/dL POC Glucose (mg/dL) 320 H (75-99) mg/dL Plasma Lactic Acid Geoff 6.8 H* 6.2 H* (0.7-2.0) mmol/L Calcium (8.4-10.2) mg/dL Phosphorus (2.5-4.5) mg/dL Total Bilirubin (0.2-1.3) mg/dL AST (17-59) U/L Alkaline Phosphatase (38-126) U/L Total Protein (6.3-8.2) g/dL Albumin (3.5-5.0) g/dL 04/30/20 04/30/20 04/30/20 Range/Units 03:55 03:55 03:55 WBC 31.7 H (3.8-10.6) k/uL RBC 4.22 L (4.30-5.90) m/uL Hgb 11.0 L (13.0-17.5) gm/dL Hct 38.9 L (39.0-53.0) % MCHC 28.4 L (31.0-37.0) g/dL RDW 21.9 H (11.5-15.5) % Plt Count 119 L (150-450) k/uL Neutrophils # (Manual) 29.40 H (1.3-7.7) k/uL Lymphocytes # (Manual) 0.63 L (1.0-4.8) k/uL Metamyelocytes # (Man) 0.32 H (0) k/uL Myelocytes # (Manual) 0.63 H (0) k/uL Nucleated RBCs 16 H (0-0) /100 WBC ABG pH (7.35-7.45) ABG pCO2 (35-45) mmHg ABG pO2 (83-108) mmHg ABG Total CO2 (19-24) mmol/L ABG O2 Saturation (94-97) % Sodium (137-145) mmol/L Chloride 112 H (98-107) mmol/L Carbon Dioxide 21 L (22-30) mmol/L BUN 56 H (9-20) mg/dL Creatinine 1.78 H (0.66-1.25) mg/dL Glucose 406 H (74-99) mg/dL POC Glucose (mg/dL) (75-99) mg/dL Plasma Lactic Acid Geoff 5.0 H* (0.7-2.0) mmol/L Calcium 7.8 L (8.4-10.2) mg/dL Phosphorus 6.4 H (2.5-4.5) mg/dL Total Bilirubin 4.3 H (0.2-1.3) mg/dL AST 104 H (17-59) U/L Alkaline Phosphatase 146 H (38-126) U/L Total Protein 5.1 L (6.3-8.2) g/dL Albumin 2.2 L (3.5-5.0) g/dL 04/30/20 04/30/20 04/30/20 Range/Units 05:45 05:47 07:10 WBC (3.8-10.6) k/uL RBC (4.30-5.90) m/uL Hgb (13.0-17.5) gm/dL Hct (39.0-53.0) % MCHC (31.0-37.0) g/dL RDW (11.5-15.5) % Plt Count (150-450) k/uL Neutrophils # (Manual) (1.3-7.7) k/uL Lymphocytes # (Manual) (1.0-4.8) k/uL Metamyelocytes # (Man) (0) k/uL Myelocytes # (Manual) (0) k/uL Nucleated RBCs (0-0) /100 WBC ABG pH 7.13 L* (7.35-7.45) ABG pCO2 62 H (35-45) mmHg ABG pO2 (83-108) mmHg ABG Total CO2 (19-24) mmol/L ABG O2 Saturation (94-97) % Sodium (137-145) mmol/L Chloride (98-107) mmol/L Carbon Dioxide (22-30) mmol/L BUN (9-20) mg/dL Creatinine (0.66-1.25) mg/dL Glucose (74-99) mg/dL POC Glucose (mg/dL) 397 H (75-99) mg/dL Plasma Lactic Acid Geoff 4.1 H* (0.7-2.0) mmol/L Calcium (8.4-10.2) mg/dL Phosphorus (2.5-4.5) mg/dL Total Bilirubin (0.2-1.3) mg/dL AST (17-59) U/L Alkaline Phosphatase (38-126) U/L Total Protein (6.3-8.2) g/dL Albumin (3.5-5.0) g/dL Microbiology - Last 24 Hours (Table) 04/29/20 17:51 Gram Stain - Preliminary Sputum Sputum Culture - Preliminary 04/27/20 09:50 Blood Culture - Preliminary Blood No Growth after 48 hours Assessment and Plan Plan: 1 Sepsis, secondary to suspected acute cholecystitis/enteritis. The patient is postop day #1. The patient underwent laparoscopic evaluation and exploration. Note that there was no evidence of any ischemia. He is post cholecystectomy. He is postop day #1. The patient is currently on IV Merrem and Flagyl. White cell count is on the rise. He does have some lactic acidosis which improved with fluid resuscitation. 2 acute hypoxic respiratory failure and the patient had diffuse breath and pulmonary infiltrates, consider pulmonary edema secondary to underlying cardiomyopathy/cardiogenic shock. Consider ARDS/noncardiogenic pulmonary edema. Currently intubated on a mechanical ventilator with a PEEP of 10 and FiO2 100%. He also has some underlying respiratory and metabolic acidosis. Appropriate ventilator changes were done and follow-up blood gases in progress. 3 shock, a combination of cardiogenic and septic. 4 acute kidney in and the patient is currently oliguric and the creatinine is on the rise 5 acute Lactic acidosis secondary to above and the patient elected against bowel is gradually improving 6 hyponatremia secondary to diuresis 7 History of chronic atrial fibrillation. The patient is on no anticoagulation for now 8 History of CAD, status post stent placement. Coronary artery disease with chronically occluded RCA and collaterals in addition to moderate to moderate disease involving LAD and circumflex and this is based on a cardiac catheterization from the year 1999 9 History of hyperlipidemia. 10 History of essential hypertension. 11 History of myocardial infarction. 12 chronic atrial fibrillation, slightly tachycardic this morning with a wide bundle branch block pattern 13 CHF with an EF 35% 14 History of previous cardiac ablation and AICD placement. The patient has history of V. tach and the patient undergone previous ablation 15 PAD without significant mesenteric artery occlusive disease 16 Hypothermia, and hypotension, secondary to suspected sepsis, improved. 17 thrombocytopenia Plan: Obtain a follow-up blood gases Keep the patient sedated with propofol Lactic acid levels recheck in 6 hours IV Merrem and Flagyl Check pro calcitonin level also sent another set of blood cultures Check a CVP 21. Restart dobutamine at 2.5 mcg/kg per minute. Continue with pressors especially with norepinephrine infusion which is running at 0.65 mcg/kg per minute. And vasopressin I contacted the daughter and discussed the findings Lasix will be tried again to improve the urine output Keep the patient ICU for now. We'll continue to follow I will discuss this case with the rest of the consultants including vascular surgery and general surgery and cardiology. Critically care evaluation Time with Patient: Greater than 30 Time with Patient: Greater than 30
[2020-04-30] MEDS: SODIUM CHLORIDE 0.9% 50 ML with VASOPRESSIN 20 UNIT IVPB SCH ×4 (10:37→22:48)
--- NOTE | 2020-04-30 11:30 | P.PN ---
Subjective Progress Note Date: 04/30/20 Patient underwent laparoscopically cystectomy and diagnostic laparoscopy yesterday. His bowel appears viable. He has worsening sepsis and ARDS. Objective - Vital Signs Vital signs: Vital Signs Temp 98.6 F 04/30/20 04:00 Pulse 112 H 04/30/20 07:00 Resp 26 H 04/30/20 07:00 BP 100/67 04/30/20 07:00 Pulse Ox 95 04/30/20 08:18 Intake & Output 04/29/20 04/30/20 04/30/20 18:59 06:59 18:59 Intake Total 5457.360 1888.142 161.584 Output Total 705 20 0 Balance 4752.360 1868.142 161.584 Weight 72.2 kg 76.6 kg Intake: IV 4521 1566 106 Fat Emulsion 20% 250 ml 189 84 In Empty Bag 1 bag @ 21 mls/hr IV MoWeFr [facility] Rx#: [id number] Meropenem 1 gm In Sodium 100 200 Chloride 0.9% 100 ml @ 33 .3 mls/hr IVPB Q8HR [facility] Rx#:[id number] Mvi, Adult No.4 with Vit 330 K 10 ml Trace (Conc-1Ml/ Dose) 1 ml In Amino Acid 5%-D20w+Lytes*E* 1,000 ml @ 30 mls/hr IV .Q24H [facility] Rx#:[id number] Mvi, Adult No.4 with Vit 80 960 80 K 10 ml Trace (Conc-1Ml/ Dose) 1 ml Potassium Acetate 30 meq Potassium Phosphate 15 mmol Magnesium Sulfate gm 1 gm Calcium Gluconate 1 gm In Amino Acids 5 %/ Dextrose 20 % 1,000 ml @ 80 mls/hr IV .BY DURATION [facility] Rx#:[id number] Potassium Chloride 20 meq 200 In Water For Injection 1 100ml.bag @ 50 mls/hr IVPB Q2H [facility] Rx#: [id number] Pressure bags 72 72 6 Sodium Chloride 0.9% 1, 3000 000 ml @ 999 mls/hr IV . Q1H1M [facility] Rx#:[id number] Sodium Chloride 0.9% 500 50 150 20 ml 500 ml @ 20 mls/hr IV .Q24H [facility] Rx#:[id number] metroNIDAZOLE-NS PMX 500 100 100 mg In Saline 1 100ml.bag @ 100 mls/hr IVPB Q8HR [facility] Rx#:[id number] Intake, IV Titration 582.360 322.142 55.584 Amount Furosemide 100 mg In 59.333 Sodium Chloride 0.9% 90 ml @ 5 MG/HR 5 mls/hr IV .Q20H [facility] Rx#:[id number] Meropenem 1 gm In Sodium 100 Chloride 0.9% 100 ml @ 33 .3 mls/hr IVPB Q8HR [facility] Rx#:[id number] Norepinephrine 32 mg In 12.408 Sodium Chloride 0.9% 218 ml @ 0.05 MCG/KG/MIN 1. 692 mls/hr IV .Q24H [facility] Rx#:[id number] Norepinephrine 8 mg In 293.858 222.142 Sodium Chloride 0.9% 250 ml @ 0.05 MCG/KG/MIN 6. 985 mls/hr IV .Q24H [facility] Rx#:[id number] Potassium Chloride 20 meq 100 In Water For Injection 1 100ml.bag @ 50 mls/hr IVPB Q2H [facility] Rx#: [id number] propofoL 500 mg In Empty 29.169 100 43.176 Bag 1 bag @ Titrate IV . Q0M [facility] Rx#:[id number] Oral 50 Blood Product 304 Platelet Pheresis Acda2 304 Unit [id number] Output: Urine 685 20 0 Estimated Blood Loss 20 Other: Voiding Method Indwelling Catheter Indwelling Catheter ABP, PAP, CO, CI - Last Documented Arterial Blood Pressure 108/66 - Exam Patient remains on ventilator - Gastrointestinal Gastrointestinal Comment(s): Abdomen soft. Incision sites clean dry tach. - Labs CBC & Chem 7: 04/30/20 03:55 04/30/20 03:55 Labs: Abnormal Lab Results - Last 24 Hours (Table) 04/29/20 04/29/20 04/29/20 Range/Units 13:06 14:17 14:57 WBC (3.8-10.6) k/uL RBC (4.30-5.90) m/uL Hgb (13.0-17.5) gm/dL Hct (39.0-53.0) % MCHC (31.0-37.0) g/dL RDW (11.5-15.5) % Plt Count (150-450) k/uL Neutrophils # (Manual) (1.3-7.7) k/uL Lymphocytes # (Manual) (1.0-4.8) k/uL Metamyelocytes # (Man) (0) k/uL Myelocytes # (Manual) (0) k/uL Nucleated RBCs (0-0) /100 WBC ABG pH 7.19 L* 7.25 L (7.35-7.45) ABG pCO2 63 H 55 H (35-45) mmHg ABG pO2 76 L 132 H (83-108) mmHg ABG Total CO2 26 H 26 H (19-24) mmol/L ABG O2 Saturation 89.8 L 98.9 H (94-97) % Sodium (137-145) mmol/L Chloride (98-107) mmol/L Carbon Dioxide (22-30) mmol/L BUN (9-20) mg/dL Creatinine (0.66-1.25) mg/dL Glucose (74-99) mg/dL POC Glucose (mg/dL) 161 H (75-99) mg/dL Plasma Lactic Acid Geoff (0.7-2.0) mmol/L Calcium (8.4-10.2) mg/dL Phosphorus (2.5-4.5) mg/dL Total Bilirubin (0.2-1.3) mg/dL AST (17-59) U/L Alkaline Phosphatase (38-126) U/L Total Protein (6.3-8.2) g/dL Albumin (3.5-5.0) g/dL 04/29/20 04/29/20 04/29/20 Range/Units 16:00 16:00 16:45 WBC 35.5 H (3.8-10.6) k/uL RBC 3.82 L (4.30-5.90) m/uL Hgb 10.3 L (13.0-17.5) gm/dL Hct 33.6 L (39.0-53.0) % MCHC 30.7 L (31.0-37.0) g/dL RDW 21.7 H (11.5-15.5) % Plt Count 139 L D (150-450) k/uL Neutrophils # (Manual) (1.3-7.7) k/uL Lymphocytes # (Manual) (1.0-4.8) k/uL Metamyelocytes # (Man) (0) k/uL Myelocytes # (Manual) (0) k/uL Nucleated RBCs (0-0) /100 WBC ABG pH (7.35-7.45) ABG pCO2 (35-45) mmHg ABG pO2 (83-108) mmHg ABG Total CO2 (19-24) mmol/L ABG O2 Saturation (94-97) % Sodium 147 H (137-145) mmol/L Chloride 115 H (98-107) mmol/L Carbon Dioxide (22-30) mmol/L BUN 49 H (9-20) mg/dL Creatinine 1.33 H (0.66-1.25) mg/dL Glucose 208 H (74-99) mg/dL POC Glucose (mg/dL) (75-99) mg/dL Plasma Lactic Acid Geoff 4.2 H* (0.7-2.0) mmol/L Calcium 7.3 L (8.4-10.2) mg/dL Phosphorus (2.5-4.5) mg/dL Total Bilirubin (0.2-1.3) mg/dL AST (17-59) U/L Alkaline Phosphatase (38-126) U/L Total Protein (6.3-8.2) g/dL Albumin (3.5-5.0) g/dL 04/29/20 04/29/20 04/29/20 Range/Units 17:32 19:20 21:50 WBC (3.8-10.6) k/uL RBC (4.30-5.90) m/uL Hgb (13.0-17.5) gm/dL Hct (39.0-53.0) % MCHC (31.0-37.0) g/dL RDW (11.5-15.5) % Plt Count (150-450) k/uL Neutrophils # (Manual) (1.3-7.7) k/uL Lymphocytes # (Manual) (1.0-4.8) k/uL Metamyelocytes # (Man) (0) k/uL Myelocytes # (Manual) (0) k/uL Nucleated RBCs (0-0) /100 WBC ABG pH (7.35-7.45) ABG pCO2 (35-45) mmHg ABG pO2 (83-108) mmHg ABG Total CO2 (19-24) mmol/L ABG O2 Saturation (94-97) % Sodium (137-145) mmol/L Chloride (98-107) mmol/L Carbon Dioxide (22-30) mmol/L BUN (9-20) mg/dL Creatinine (0.66-1.25) mg/dL Glucose (74-99) mg/dL POC Glucose (mg/dL) 173 H (75-99) mg/dL Plasma Lactic Acid Geoff 6.0 H* 6.8 H* (0.7-2.0) mmol/L Calcium (8.4-10.2) mg/dL Phosphorus (2.5-4.5) mg/dL Total Bilirubin (0.2-1.3) mg/dL AST (17-59) U/L Alkaline Phosphatase (38-126) U/L Total Protein (6.3-8.2) g/dL Albumin (3.5-5.0) g/dL 04/30/20 04/30/20 04/30/20 Range/Units 00:07 00:40 03:55 WBC (3.8-10.6) k/uL RBC (4.30-5.90) m/uL Hgb (13.0-17.5) gm/dL Hct (39.0-53.0) % MCHC (31.0-37.0) g/dL RDW (11.5-15.5) % Plt Count (150-450) k/uL Neutrophils # (Manual) (1.3-7.7) k/uL Lymphocytes # (Manual) (1.0-4.8) k/uL Metamyelocytes # (Man) (0) k/uL Myelocytes # (Manual) (0) k/uL Nucleated RBCs (0-0) /100 WBC ABG pH (7.35-7.45) ABG pCO2 (35-45) mmHg ABG pO2 (83-108) mmHg ABG Total CO2 (19-24) mmol/L ABG O2 Saturation (94-97) % Sodium (137-145) mmol/L Chloride 112 H (98-107) mmol/L Carbon Dioxide 21 L (22-30) mmol/L BUN 56 H (9-20) mg/dL Creatinine 1.78 H (0.66-1.25) mg/dL Glucose 406 H (74-99) mg/dL POC Glucose (mg/dL) 320 H (75-99) mg/dL Plasma Lactic Acid Geoff 6.2 H* (0.7-2.0) mmol/L Calcium 7.8 L (8.4-10.2) mg/dL Phosphorus 6.4 H (2.5-4.5) mg/dL Total Bilirubin 4.3 H (0.2-1.3) mg/dL AST 104 H (17-59) U/L Alkaline Phosphatase 146 H (38-126) U/L Total Protein 5.1 L (6.3-8.2) g/dL Albumin 2.2 L (3.5-5.0) g/dL 04/30/20 04/30/20 04/30/20 Range/Units 03:55 03:55 05:45 WBC 31.7 H (3.8-10.6) k/uL RBC 4.22 L (4.30-5.90) m/uL Hgb 11.0 L (13.0-17.5) gm/dL Hct 38.9 L (39.0-53.0) % MCHC 28.4 L (31.0-37.0) g/dL RDW 21.9 H (11.5-15.5) % Plt Count 119 L (150-450) k/uL Neutrophils # (Manual) 29.40 H (1.3-7.7) k/uL Lymphocytes # (Manual) 0.63 L (1.0-4.8) k/uL Metamyelocytes # (Man) 0.32 H (0) k/uL Myelocytes # (Manual) 0.63 H (0) k/uL Nucleated RBCs 16 H (0-0) /100 WBC ABG pH (7.35-7.45) ABG pCO2 (35-45) mmHg ABG pO2 (83-108) mmHg ABG Total CO2 (19-24) mmol/L ABG O2 Saturation (94-97) % Sodium (137-145) mmol/L Chloride (98-107) mmol/L Carbon Dioxide (22-30) mmol/L BUN (9-20) mg/dL Creatinine (0.66-1.25) mg/dL Glucose (74-99) mg/dL POC Glucose (mg/dL) 397 H (75-99) mg/dL Plasma Lactic Acid Geoff 5.0 H* (0.7-2.0) mmol/L Calcium (8.4-10.2) mg/dL Phosphorus (2.5-4.5) mg/dL Total Bilirubin (0.2-1.3) mg/dL AST (17-59) U/L Alkaline Phosphatase (38-126) U/L Total Protein (6.3-8.2) g/dL Albumin (3.5-5.0) g/dL 04/30/20 04/30/20 04/30/20 Range/Units 05:47 07:10 10:24 WBC (3.8-10.6) k/uL RBC (4.30-5.90) m/uL Hgb (13.0-17.5) gm/dL Hct (39.0-53.0) % MCHC (31.0-37.0) g/dL RDW (11.5-15.5) % Plt Count (150-450) k/uL Neutrophils # (Manual) (1.3-7.7) k/uL Lymphocytes # (Manual) (1.0-4.8) k/uL Metamyelocytes # (Man) (0) k/uL Myelocytes # (Manual) (0) k/uL Nucleated RBCs (0-0) /100 WBC ABG pH 7.13 L* 7.19 L* (7.35-7.45) ABG pCO2 62 H 55 H (35-45) mmHg ABG pO2 (83-108) mmHg ABG Total CO2 (19-24) mmol/L ABG O2 Saturation 97.6 H (94-97) % Sodium (137-145) mmol/L Chloride (98-107) mmol/L Carbon Dioxide (22-30) mmol/L BUN (9-20) mg/dL Creatinine (0.66-1.25) mg/dL Glucose (74-99) mg/dL POC Glucose (mg/dL) (75-99) mg/dL Plasma Lactic Acid Geoff 4.1 H* (0.7-2.0) mmol/L Calcium (8.4-10.2) mg/dL Phosphorus (2.5-4.5) mg/dL Total Bilirubin (0.2-1.3) mg/dL AST (17-59) U/L Alkaline Phosphatase (38-126) U/L Total Protein (6.3-8.2) g/dL Albumin (3.5-5.0) g/dL Microbiology - Last 24 Hours (Table) 04/29/20 17:51 Gram Stain - Preliminary Sputum Sputum Culture - Preliminary 04/27/20 09:50 Blood Culture - Preliminary Blood No Growth after 48 hours Assessment and Plan Assessment: Continue supportive care
[2020-04-30 12:36] LABS: Glucose,Whole Blood 386 mg/dL (75-99)
--- NOTE | 2020-04-30 13:32 | PN ---
PROGRESS NOTE Gerber is a 70-year-old gentleman that underwent cholecystectomy yesterday and in the postoperative set up became hypotensive. Currently, he is on the vent and is requiring quite a bit of support because of hypotension. His urine output is very poor. Labs show that his BUN is 56, creatinine is 1.7. On exam, heart rate is 112 beats per minute. Blood pressure is 100/61, respiratory rate is 26. Chest exam reveals diminished air entry at the bases with occasional crackles. Heart exam reveals first and second heart sounds, a grade 3 x 6 systolic murmur at the apex. Abdomen is soft. Exam of extremities reveals bilateral edema which has improved. Labs show a potassium of 4.9. BUN is 56, creatinine is 4.7. Lactic acid is elevated. ASSESSMENT: 1. Persistent atrial fibrillation. 2. Severe hypotension. 3. Renal failure. 4. Ischemic cardiomyopathy with acute exacerbation of chronic systolic heart failure. PLAN: I will start the patient on IV dobutamine and continue the IV Lasix. His prognosis is guarded. While he underwent cholecystectomy, there is no evidence of ischemic bowel. MMODL / IJN: [id number] /
[2020-04-30 16:32] VITALS: BMI 25.7
[2020-04-30 17:03] LABS: Calcium 7.7 mg/dL (8.4-10.2); Potassium 5.3 mmol/L (3.5-5.1)
[2020-04-30 17:32] LABS: Glucose,Whole Blood 344 mg/dL (75-99)
[2020-04-30] MEDS ORDERED: INSULIN ASPART (NovoLOG) 100 UNIT/ML VIAL SQ SCH (20:00)
[2020-04-30] MEDS ORDERED: [UNRECOGNIZED DRUG - REMARK] IV SCH ×6 (20:00)
[2020-04-30 20:40] LABS: Glucose,Whole Blood 391 mg/dL (75-99)
--- NOTE | 2020-04-30 21:03 | P.PN ---
Progress Note - Text Progress Note Date: 04/30/20 Presenting complaint Chest pain: Interval course: Patient was recently in the hospital with ischemic colitis with resultant hypotension lactic acidosis ischemic hepatitis, acute CHF exacerbation was admitted to the ICU. Now presented with chest pain. Found to be atypical. Negative troponins. Ultrasound of the abdomen showed gallbladder sludge. Suspicion for acute cholecystitis. Followed by surgery. No history of carotid artery disease. Known EF of 30-35%. Also atrial fibrillation, hyperlipidemia, AICD. April 20-surgery was postponed for a sodium of 127 by anesthesia. Patient was given salt tablet fluid restriction and held of free fluid. Following day sodium went to 128. Nephrology consulted. Ordered Samsca. On April 22 patient had increasing abdominal pain. Worsening renal function. Lactic acidosis. Moved to ICU. Started IV Zosyn. IV fluids. Bicarbonate drip. Hypothermic. Placed on dobutamine. April 29-laparoscopic cholecystectomy done by Dr. Farah Today-ICU: Did not see the patient yesterday. Had cold of the operating room. On the ventilator. FiO2 90 PEEP of 10. OG tube in place. Drips include we will affect, vasopressin, propofol, dobutamine. Telemetry-sinus tachycardia. Review of systems: Patient intubated Active Medications Al Hydroxide/Mg Hydroxide (Mag Hydrox/Al Hydrox/Simeth 30 Ml Cup) 30 ml PO Q4HR PRN PRN Reason: GI Upset Last Admin: 04/18/20 00:31 Dose: 30 ml Documented by: Bisacodyl (Bisacodyl 10 Mg Supp) 10 mg RECTAL HS [facility] Last Admin: 04/29/20 21:10 Dose: 10 mg Documented by: Chlorhexidine Gluconate (Chlorhexidine Gluconate 15 Ml Cup) 15 ml MUCOUS MEM BID [facility] Last Admin: 04/30/20 08:31 Dose: 15 ml Documented by: Hydromorphone HCl (Hydromorphone 1 Mg/Ml 1 Ml Syringe) 1 mg IVP Q3HR PRN PRN Reason: Pain Last Admin: 04/28/20 08:02 Dose: 1 mg Documented by: Metronidazole 500 mg/ IV (Solution) 100 mls @ 100 mls/hr IVPB Q8HR [facility] Last Admin: 04/30/20 16:23 Dose: 100 mls/hr Documented by: Sodium Chloride (Saline 0.9%) 500 mls @ 20 mls/hr IV .Q24H [facility] Last Admin: 04/30/20 05:36 Dose: 20 mls/hr Documented by: Meropenem 1 gm/ Sodium (Chloride) 100 mls @ 33.3 mls/hr IVPB Q8HR [facility]; Protocol Last Admin: 04/30/20 16:30 Dose: 33.3 mls/hr Documented by: Fat Emulsion Intravenous 250 (ml/ IV Solution) 250 mls @ 21 mls/hr IV MoWeFr [facility] Last Admin: 04/29/20 09:55 Dose: 21 mls/hr Documented by: Propofol 500 mg/ IV Solution 50 mls @ 0 mls/hr IV .Q0M [facility]; Protocol Last Titration: 04/30/20 20:02 Dose: 22 mcg/kg/min, 10.111 mls/hr Documented by: Vasopressin 20 unit/ Sodium (Chloride) 51 mls @ 4.59 mls/hr IVPB .Q11H7M [facility] Last Admin: 04/30/20 10:37 Dose: 4.59 mls/hr Documented by: Norepinephrine Bitartrate 32 (mg/ Sodium Chloride) 250 mls @ 1.692 mls/hr IV .Q24H [facility]; Protocol Last Titration: 04/30/20 19:45 Dose: 0.67 mcg/kg/min, 22.675 mls/hr Documented by: Dobutamine HCl/Dextrose 500 mg (/ IV Solution) 250 mls @ 5.745 mls/hr IV .Q24H [facility] Last Admin: 04/30/20 10:30 Dose: 2.5 mcg/kg/min, 5.745 mls/hr Documented by: Parenteral Vitamin Supplement 10 ml/ Zinc/Copper/Manganese/Selenium 1 ml/ Potassium Acetate 30 meq/ Magnesium Sulfate 1 gm/ Calcium Gluconate 1 gm/ Amino Acids/Dextrose 1,038 mls @ 80 mls/hr IV .BY DURATION [facility] Last Admin: 04/30/20 19:59 Dose: 80 mls/hr Documented by: Potassium Acetate 30 meq/Magnesium Sulfate 1 gm/Calcium Gluconate 1 gm/ Amino Acids/Dextrose 1,027 mls @ 80 mls/hr IV .BY DURATION [facility] Insulin Aspart (Insulin Aspart (Novolog) 100 Unit/Ml Vial) 0 unit SQ Q4H [facility]; Protocol Lidocaine HCl (Lidocaine 1% (10mg/Ml) For Iv Start) 0.1 ml INTRADERMA PER PROTOCOL PRN PRN Reason: IV Start Methylprednisolone Sodium Succinate (Methylprednisolone Sod Succi 40 Mg/Ml 1 Ml Vial) 40 mg IV Q8HR [facility] Last Admin: 04/30/20 16:23 Dose: 40 mg Documented by: Metoprolol Succinate (Metoprolol Succinate (Er) 25 Mg Tab.Er.24h) 25 mg PO DAILY [facility] Last Admin: 04/30/20 08:31 Dose: 25 mg Documented by: Midodrine (Midodrine 5 Mg Tab) 5 mg PO AC-TID [facility] Last Admin: 04/30/20 18:13 Dose: 5 mg Documented by: Miscellaneous Information (Potassium Replacement Protocol 1 Each Misc) 1 each MISCELLANE DAILY PRN; Protocol PRN Reason: Per Protocol Nitroglycerin (Nitroglycerin Sl Tabs 0.4 Mg Tab) 0.4 mg SUBLINGUAL Q5M PRN PRN Reason: Chest Pain Last Admin: 04/17/20 20:06 Dose: 0.4 mg Documented by: Ondansetron HCl (Ondansetron 4 Mg/2 Ml Vial) 4 mg IVP Q6HR PRN PRN Reason: Nausea And Vomiting Last Admin: 04/28/20 20:45 Dose: 4 mg Documented by: Pantoprazole Sodium (Pantoprazole 40 Mg/10 Ml Vial) 40 mg IV DAILY [facility] Last Admin: 04/30/20 08:31 Dose: 40 mg Documented by: Sodium Chloride (Sodium Chloride 0.9% Flush 10 Ml Syringe) 10 ml IV Q4HR PRN PRN Reason: PICC Line Sodium Chloride (Sodium Chloride 0.9% Flush 10 Ml Syringe) 10 ml IV WEEKLY [facility] Sodium Chloride (Sodium Chloride 0.9% Flush 10 Ml Syringe) 20 ml IV Q4HR PRN PRN Reason: PICC Line On examination: VITAL SIGNS: 100.1, 116, 32, 94/63, 93% on the ventilator GENERAL APPEARANCE: Laying in bed, intubated HEENT: Normal external appearance of nose and ear. ET tube. OG tube EYES: Pupils equal. Conjunctiva normal. NECK: JVD not raised. Mass not palpable. RESPIRATORY: Respiratory effort normal. Lungs decreased breath sounds CARDIOVASCULAR: Heart sounds irregular. No edema. ABDOMEN: Soft. Liver and spleen not palpable. No abdominal tenderness, no obvious guarding rigidity. No mass palpable. PSYCHIATRY: Patient sedated Investigations: April 28: WBC 31.7 hemoglobin 11 platelets 119 potassium 4.9 bun 56 creatinine 1.78 lactic acid 5 pro-calcitonin 4.09 Checks x-ray film personally reviewed by me shows-infiltrate versus less likely edema April 27: White count 15.8 hemoglobin 10.5 platelets 76 potassium 3.9 creatinine 1.24 AST 42 ALT 43 albumin 2.2 Chest [id number] April 26: White count 8.7 hemoglobin 11 platelets 97 potassium 3.5 creatinine 1.16 AST 62 ALT 56 Chest x-ray film personally reviewed by me-bilateral possible pulmonary edema. Interstitial infiltrate cannot be ruled out April 25: White count 21.4 hemoglobin 11.5 platelets 121 potassium 3.6 bun 30 creatinine 1.44 AST 125 ALT 76 April 24: White count 8.6 hemoglobin 11 platelets 138 INR 1.6 potassium 2.9 bun 40 creatinine 1.93 AST 224 ALT 104 April 23: White count 25 hemoglobin 11 increased neutrophils INR 1.9 potassium 4.2 bicarb 29 bun 50 creatinine 2.45 AST 356 ALT 128 Computed tomography scan of the abdomen-persistent but improved wall thickening involving the duodenum and proximal jejunum. April 22: White count 31.7 hemoglobin 11.7 potassium 5.7 bun 44 creatinine 2.64 bicarb 11 lactic acid 12.6 AST 544 ALT 144 Computed tomography scan abdomen and pelvis-mild to moderate acute enteritis involving the duodenum and proximal jejunum April 21: Sodium 128 bun 29 creatinine 1.58. Serum osmolality 282 White count 8.6 hemoglobin 12.7 platelets 298 sodium 127 potassium 4.7 creatinine 1.26 Coronavirus [PCR]-not detected EKG tracing-left bundle-branch block pattern Assessment: -Acute enteritis involving the duodenum and proximal jejunum. Probably hypotensive episode/etiology. With hydration that seems to have improved. -Acute metabolic acidosis from worsening renal -corrected -Acute kidney injury, ATN-some improvement, then worsening -Acute ischemic hepatitis improved -Acute lactic acidosis likely combination of type I-type improved -Hypokalemia-corrected -Acute cholecystitis,. On IV Zosyn-changed to IV for meropenem , IV Flagyl. Laparoscopic cholecystectomy on April 29 -Hyponatremia, suspect hypervolemia from CHF. Normal osmolar. Improved -Chest pain-felt to be noncardiac -Coronary artery disease with cardiac cath in February 2020 revealing chronically occluded RCA extensive [id number] collaterals etc. -Acute on Chronic congestive heart failure from systolic dysfunction EF 25-30% received Lasix drip -Paroxysmal atrial fibrillation chronically on eliquis. Was on IV heparin- discontinued -AICD for ventricular tachycardia Additionally: Continue on levo fed vasopressin propofol dobutamine, sinus tachycardia. On the ventilator. Prognosis guarded.
[2020-04-30] MEDS: bisacodyL 10 MG SUPP RECTAL SCH (21:08)
--- NOTE | 2020-04-30 22:47 | PN ---
PROGRESS NOTE DATE OF SERVICE: 04/30/2020 FOLLOW UP: Sepsis. INTERVAL HISTORY: Patient did have a low grade fever this evening. . The patient is requiring pressor support about the same as yesterday, both Levophed and Vasopressin and no significant , 90%. No diarrhea has been reported per the nursing staff. PHYSICAL EXAMINATION: Blood pressure 101/61 with a pulse of 118, temperature 100.2. He is 94% on 90% FiO2. General description is an elderly male lying in bed in no distress. Respiratory system: Unlabored breathing, decreased breath sounds in the bases. No wheeze. Heart S1, S2. Regular rate and rhythm. ABDOMEN: Soft. No distention. No guarding or rigidity. LABS: Hemoglobin 11.1, white count 13.7, BUN of 7, creatinine is 2.07. DIAGNOSTIC IMPRESSION AND PLAN: Patient with acute respiratory failure, multifactorial in this patient who did have status post cholecystectomy and possibly versus pneumonitis. Patient is covered on Meropenem to continue while waiting for the culture to finalize. Overall prognosis remains to be guarded. Continue supportive care. MMODL / IJN: [id number] /
[2020-05-01 00:11] LABS: Glucose,Whole Blood 414 mg/dL (75-99)
[2020-05-01] MEDS ORDERED: INSULIN REGULAR BOLUS (FROM DRIP BAG) IV PRN (00:12)
[2020-05-01] MEDS ORDERED: INSULIN REGULAR 100 UNIT in SODIUM CHLORIDE 0.9% 100 ML IV SCH (00:15)
[2020-05-01] MEDS: methylPREDNISolone SOD SUCCI 40 MG/ML 1 ML VIAL IV SCH (00:55)
[2020-05-01] MEDS: MEROPENEM 1 GM in SODIUM CHLORIDE 0.9% 100 ML IVPB SCH (00:55)
[2020-05-01 01:38] LABS: Glucose,Whole Blood 339 mg/dL (75-99)
[2020-05-01] MEDS: NOREPINEPHRINE 32 MG in SODIUM CHLORIDE 0.9% 218 ML IV SCH (01:41)
[2020-05-01 02:06] LABS: Glucose,Whole Blood 396 mg/dL (75-99)
[2020-05-01 02:08] VITALS: TEMP 100.4
[2020-05-01 03:09] LABS: Glucose,Whole Blood 384 mg/dL (75-99)
[2020-05-01] MEDS ORDERED: MORPHINE SULFATE 4 MG/ML SYRINGE IV PRN (03:27)
[2020-05-01 04:00] VITALS: RESP 32
[2020-05-01 04:58] VITALS: BP 97/72; PULSE 137
--- NOTE | 2020-05-02 00:14 | P.DS ---
Providers Date of admission: 04/19/20 11:28 Expected date of discharge: 05/01/20 (Patient ) Attending physician: Vinicio Murillo Consults: 04/17/20 12:01 Consult Physician Urgent Consulting Provider: Cardiology Jez Consult Reason/Comments: chest pain Do you want consulting provider notified?: Yes 04/18/20 11:49 Consult Physician Routine Consulting Provider: Jr Farah Consult Reason/Comments: Gallbladder sludge? Do you want consulting provider notified?: Yes 04/21/20 10:10 Consult Physician Routine Consulting Provider: Hira Benavidez Consult Reason/Comments: low sodium Do you want consulting provider notified?: Yes 04/22/20 10:02 Consult Physician Routine Consulting Provider: Ruddy Reid Consult Reason/Comments: icu transfer Do you want consulting provider notified?: Yes 04/22/20 14:48 Consult Physician Routine Consulting Provider: Jaycob Delgadillo Consult Reason/Comments: SMA occlusionischemia Do you want consulting provider notified?: Yes 04/23/20 15:38 Consult Physician Routine Consulting Provider: Tahira Wagner Consult Reason/Comments: gastric enteritis Do you want consulting provider notified?: Yes, Notify in am Primary care physician: Lenard [facility] Hospital Course: Presenting complaint Chest pain: Interval course: Patient was recently in the hospital with ischemic colitis with resultant hypotension lactic acidosis ischemic hepatitis, acute CHF exacerbation was admitted to the ICU. Now presented with chest pain. Found to be atypical. Negative troponins. Ultrasound of the abdomen showed gallbladder sludge. Suspicion for acute cholecystitis. Followed by surgery. No history of carotid artery disease. Known EF of 30-35%. Also atrial fibrillation, hyperlipidemia, AICD. April 20-surgery was postponed for a sodium of 127 by anesthesia. Patient was given salt tablet fluid restriction and held of free fluid. Following day sodium went to 128. Nephrology consulted. Ordered Samsca. On April 22 patient had increasing abdominal pain. Worsening renal function. Lactic acidosis. Moved to ICU. Started IV Zosyn. IV fluids. Bicarbonate drip. Hypothermic. Placed on dobutamine. April 29-laparoscopic cholecystectomy done by Dr. Farah. Patient continues to decline. Remain on the ventilator. Today-ICU: Patient continues to decline. Remain on the ventilator. Family was informed. Patient early hours of this morning Consultation: [facility] Dr. Farah from general surgery Dr. Benavidez in part of from nephrology Dr. Hannah curran from folder gluer operator Dr. Delgadillo from vascular surgery Dr. Wagner from [place] Investigations: April 28: WBC 31.7 hemoglobin 11 platelets 119 potassium 4.9 bun 56 creatinine 1.78 lactic acid 5 pro-calcitonin 4.09 Checks x-ray film personally reviewed by me shows-infiltrate versus less likely edema April 27: White count 15.8 hemoglobin 10.5 platelets 76 potassium 3.9 creatinine 1.24 AST 42 ALT 43 albumin 2.2 Chest [id number] April 26: White count 8.7 hemoglobin 11 platelets 97 potassium 3.5 creatinine 1.16 AST 62 ALT 56 Chest x-ray film personally reviewed by me-bilateral possible pulmonary edema. Interstitial infiltrate cannot be ruled out April 25: White count 21.4 hemoglobin 11.5 platelets 121 potassium 3.6 bun 30 creatinine 1.44 AST 125 ALT 76 April 24: White count 8.6 hemoglobin 11 platelets 138 INR 1.6 potassium 2.9 bun 40 creatinine 1.93 AST 224 ALT 104 April 23: White count 25 hemoglobin 11 increased neutrophils INR 1.9 potassium 4.2 bicarb 29 bun 50 creatinine 2.45 AST 356 ALT 128 Computed tomography scan of the abdomen-persistent but improved wall thickening involving the duodenum and proximal jejunum. April 22: White count 31.7 hemoglobin 11.7 potassium 5.7 bun 44 creatinine 2.64 bicarb 11 lactic acid 12.6 AST 544 ALT 144 Computed tomography scan abdomen and pelvis-mild to moderate acute enteritis involving the duodenum and proximal jejunum April 21: Sodium 128 bun 29 creatinine 1.58. Serum osmolality 282 White count 8.6 hemoglobin 12.7 platelets 298 sodium 127 potassium 4.7 creatinine 1.26 Coronavirus [PCR]-not detected EKG tracing-left bundle-branch block pattern Probable cause of : Coronary artery disease Assessment: -Acute enteritis involving the duodenum and proximal jejunum. Probably hypotensive episode/etiology. With hydration that seems to have improved. -Acute metabolic acidosis from worsening renal -corrected -Acute kidney injury, ATN-some improvement, then worsening -Acute ischemic hepatitis improved -Acute lactic acidosis likely combination of type I-type improved -Hypokalemia-corrected -Acute cholecystitis,. On IV Zosyn-changed to IV for meropenem , IV Flagyl. Laparoscopic cholecystectomy on April 29 -Hyponatremia, suspect hypervolemia from CHF. Normal osmolar. Improved -Chest pain-felt to be noncardiac -Coronary artery disease with cardiac cath in February 2020 revealing chronically occluded RCA extensive [id number] collaterals etc. -Acute on Chronic congestive heart failure from systolic dysfunction EF 25-30% received Lasix drip -Paroxysmal atrial fibrillation chronically on eliquis. Was on IV heparin- discontinued -AICD for ventricular tachycardia Disposition: Patient Plan - Discharge Summary Discharge Rx Participant: No New Discharge Prescriptions: No Action Metoprolol Succinate (ER) [Toprol XL] 25 mg PO DAILY Apixaban [Eliquis] 5 mg PO BID #60 tab Furosemide [Lasix] 40 mg PO Q48H #30 tab Omeprazole [PriLOSEC] 40 mg PO BID #60 cap Midodrine [ProAmatine] 5 mg PO AC-TID #90 tab Discharge Medication List Metoprolol Succinate (ER) [Toprol XL] 25 mg PO DAILY 03/11/20 [History] Apixaban [Eliquis] 5 mg PO BID #60 tab 04/05/20 [Rx] Furosemide [Lasix] 40 mg PO Q48H #30 tab 04/12/20 [Rx] Midodrine [ProAmatine] 5 mg PO AC-TID #90 tab 04/12/20 [Rx] Omeprazole [PriLOSEC] 40 mg PO BID #60 cap 04/12/20 [Rx] Follow up Appointment(s)/Referral(s): Lenard Cheatham MD [Primary Care Provider] - 1-2 days [facility], [NON-STAFF] - 1-2 Days Discharge Disposition: - Preliminary Cause of Preliminary Cause of : Coronary artery disease
--- NOTE | 2020-05-04 15:42 | CDI ---
Documentation Clarification Form Mortality Review Date: 05/04/2020 03:01:36 PM From: Magda Lenz RN, CCDS Admit Date: 04/19/2020 11:28:00 AM Patient Name: Gerber Obrien Visit Number: [id number] Discharge Date: 05/01/2020 07:32:00 AM ATTENTION: The Clinical Documentation Specialists (CDI) and [facility] Coding Staff appreciate your assistance in clarifying documentation. Please respond to the clarification below the line at the bottom and electronically sign. The CDI & [facility] Coding staff will review the response and follow-up if needed. Please note: Queries are made part of the Legal Health Record. If you have any questions, please contact the author of this message via ITS. Dr. Vinicio Murillo Conflicting specificity of Atrial Fibrillation is documented and requires clarification to accurately reflect SOI/ROM. History/Risk Factors: Atrial fib, CAD, HLD, HTN, IL, bradycardia, Ablation, AICD Clinical Indicators: 04/26 - 05/02 D/C Summary: "Paroxysmal atrial fibrillation chronically on eliquis." 04/27 - 04/30 Cardiology progress note: "Persistent atrial fibrillation." Pulmonary Progress note: "History of chronic atrial fibrillation. Chronic atrial fibrillation, slightly tachycardic this morning with a wide bundle branch block pattern 04/17 H&P: "Chronic atrial fibrillation on anticoagulation with Eliquis." 04/17 EKG: Wide QRS tachycardia with Left BBB 04/18 EKG: NSR Treatment: 04/22-04/28 IV heparin Gtt Protocol 04/17 ASA 324 mg PO IT 04/18 ASA 325mg PO OT 04/17-04/18 Eliquis 5 mg PO BID In your professional opinion, can you please clarify the type of Atrial Fibrillation, if known? Chronic/Permanent Paroxysmal Persistent Other, please specify Unable to determine (Last Revision: June 2017) Persistent atrial fibrillation MTDD
[2020-05-04 19:40] LABS: LD Isoenzymes 1 25 % (19-38); LD Isoenzymes 2 40 % (30-43); LD Isoenzymes 3 19 % (16-26); LD Isoenzymes 4 8 % (3-12); LD Isoenzymes 5 8 % (3-14); Lactacte Dehydrogenase(LD) ISO 418 U/L (120-250)
== END 2020-05-01 07:32 | disposition expired | DRG 853 ==
LOC: EC 10:20 → 6NMEDSUR 12:14 → OBSVTOIN 04-19 11:28 → 2SICU 04-22 11:06
PROVIDERS: ADMIT Hospitalist; ATTEND Hospitalist
PROC: 4A133J1 Monitoring of Arterial Pulse, Peripheral, Percutaneous Approach (ICD-10-PCS; 2020-04-22)
PROC: 03HY32Z Insertion of Monitoring Device into Upper Artery, Percutaneous Approach (ICD-10-PCS; 2020-04-22)
PROC: 02HV33Z Insertion of Infusion Device into Superior Vena Cava, Percutaneous Approach (ICD-10-PCS; 2020-04-22)
PROC: 4A133B1 Monitoring of Arterial Pressure, Peripheral, Percutaneous Approach (ICD-10-PCS; 2020-04-22)
PROC: 0D9670Z Drainage of Stomach with Drainage Device, Via Natural or Artificial Opening (ICD-10-PCS; 2020-04-22)
PROC: 5A1945Z Respiratory Ventilation, 24-96 Consecutive Hours (ICD-10-PCS; 2020-04-26)
PROC: 02HV33Z Insertion of Infusion Device into Superior Vena Cava, Percutaneous Approach (ICD-10-PCS; 2020-04-28)
PROC: 30243R1 Transfusion of Nonautologous Platelets into Central Vein, Percutaneous Approach (ICD-10-PCS; 2020-04-29)
PROC: 3E043XZ Introduction of Vasopressor into Central Vein, Percutaneous Approach (ICD-10-PCS; 2020-04-29)
PROC: 3E0436Z Introduction of Nutritional Substance into Central Vein, Percutaneous Approach (ICD-10-PCS; 2020-04-29)
PROC: 0FT44ZZ Resection of Gallbladder, Percutaneous Endoscopic Approach (ICD-10-PCS; principal; 2020-04-29 09:40)
DX: A41.9 Sepsis, unspecified organism (principal); N17.0 Acute kidney failure with tubular necrosis; R65.21 Severe sepsis with septic shock; I50.23 Acute on chronic systolic (congestive) heart failure; J18.9 Pneumonia, unspecified organism; K55.019 Acute (reversible) ischemia of small intestine, extent unspecified; J80 Acute respiratory distress syndrome; I47.2 Ventricular tachycardia; E87.4 Mixed disorder of acid-base balance; E87.0 Hyperosmolality and hypernatremia; D68.9 Coagulation defect, unspecified; I13.0 Hypertensive heart and chronic kidney disease with heart failure and stage 1 through stage 4 chronic kidney disease, or unspecified chronic kidney disease; K80.00 Calculus of gallbladder with acute cholecystitis without obstruction; E87.1 Hypo-osmolality and hyponatremia; R18.8 Other ascites; I48.19 Other persistent atrial fibrillation; D69.6 Thrombocytopenia, unspecified; E83.39 Other disorders of phosphorus metabolism; F10.21 Alcohol dependence, in remission; I73.9 Peripheral vascular disease, unspecified; Z66 Do not resuscitate; Z51.5 Encounter for palliative care; Z20.822 Contact with and (suspected) exposure to COVID-19; K75.89 Other specified inflammatory liver diseases; I95.89 Other hypotension; K76.1 Chronic passive congestion of liver; N18.9 Chronic kidney disease, unspecified; E83.42 Hypomagnesemia; I25.10 Atherosclerotic heart disease of native coronary artery without angina pectoris; E87.5 Hyperkalemia; E87.6 Hypokalemia; K25.9 Gastric ulcer, unspecified as acute or chronic, without hemorrhage or perforation; I34.0 Nonrheumatic mitral (valve) insufficiency; T50.2X5A Adverse effect of carbonic-anhydrase inhibitors, benzothiadiazides and other diuretics, initial encounter; I25.5 Ischemic cardiomyopathy; E78.5 Hyperlipidemia, unspecified; I44.7 Left bundle-branch block, unspecified; I25.2 Old myocardial infarction; Z53.8 Procedure and treatment not carried out for other reasons; Z79.01 Long term (current) use of anticoagulants; Z79.899 Other long term (current) drug therapy; Z87.891 Personal history of nicotine dependence; Z87.01 Personal history of pneumonia (recurrent); Z95.810 Presence of automatic (implantable) cardiac defibrillator; Z87.11 Personal history of peptic ulcer disease; Z95.5 Presence of coronary angioplasty implant and graft; Z87.39 Personal history of other diseases of the musculoskeletal system and connective tissue; Z82.49 Family history of ischemic heart disease and other diseases of the circulatory system
CPT/HCPCS: 36415; 36573; 71045; 71046; 74176; 76705; 80048; 80053; 80061; 82330; 82805; 83605; 83625; 83690; 83735; 83880; 83930; 83935; 84100; 84132; 84145; 84295; 84478; 84484; 85025; 85027; 85610; 85730; 86850; 86900; 86901; 87040; 87070; 87205; 87635; 88304; 93005; 93306; 94002; 94003; 94660; 94760; 99285